=== PATIENT | female | born 1930 | race Caucasian/White ===

== ENCOUNTER → 2016-12-31 | Outpatient (CLI) | payer MEDICARE ==
--- NOTE | 2016-12-31 10:29 | MM ---
Reason for exam: additional evaluation requested from prior study. Last mammogram was performed 1 year and 2 months ago. History: Patient is postmenopausal and history of other cancer. Family history of breast cancer in maternal aunt at age 90. Benign stereotactic core biopsy of the right breast, March 20, 2001. Excisional biopsy of the left breast. Took hormonal contraceptives for 3 years beginning at age 32. Taking estrogen for 29 years beginning at age 46. Physical Findings: Nurse did not find any significant physical abnormalities on exam. MG 3D Diag Mammo W/Cad MARA Bilateral CC and MLO view(s) were taken. Prior study comparison: May 13, 2016, right breast US breast RT. November 09, 2015, right breast US breast workup limited RT. October 18, 2015, bilateral MG 3d screening mammo w/cad. September 08, 2014, mammogram, performed at [facility]. July 28, 2014, mammogram, performed at [facility]. The breast tissue is heterogeneously dense. This may lower the sensitivity of mammography. No significant new findings when compared with previous films. These results were verbally communicated with the patient and result sheet given to the patient on 12/31/16. ASSESSMENT: Benign, BI-RAD 2 RECOMMENDATION: Routine screening mammogram of both breasts in 1 year.
--- NOTE | 2016-12-31 10:39 | USB ---
Reason for exam: additional evaluation requested from abnormal screening. History: Patient is postmenopausal and history of other cancer. Family history of breast cancer in maternal aunt at age 90. Benign stereotactic core biopsy of the right breast, March 20, 2001. Excisional biopsy of the left breast. Took hormonal contraceptives for 3 years beginning at age 32. Taking estrogen for 29 years beginning at age 46. US Breast RT Right breast ultrasound includes all four quadrants, the retroareolar region and axilla. Finding demonstrate a 0.7 x 0.4 x 0.6mm mixed lesion at 1 o'clock, a 0.4 x 0.4 x 0.5mm too small to characterize lesion at 1 o'clock, a 0.6 x 0.2 x 0.2mm cystic lesion at 9 o'clock, a 1.1 x 0.4 x 0.4mm cystic lesion at 9 o'clock, a 0.2 x 0.4 x 0.6 cystic lesion at 9 o'clock, and a 0.6 x 0.3 x 0.4mm cystic lesion at 9 o'clock. These results were verbally communicated with the patient and result sheet given to the patient on 12/31/16. ASSESSMENT: Benign, BI-RAD 2 RECOMMENDATION: Routine screening mammogram of both breasts in 1 year.
== END | disposition home or self-care (01) ==
LOC: RADMAMWWP 08:33
PROVIDERS: ATTEND Obstetrics & Gynecology
DX: R92.8 Other abnormal and inconclusive findings on diagnostic imaging of breast (principal)
CPT/HCPCS: 76641; G0204; G0279

== ENCOUNTER → 2017-01-17 | Outpatient (CLI) | payer MEDICARE ==
[2017-01-17 14:24] LABS: Blood Urea Nitrogen 21 mg/dL (7-17); Non-African American GFR(MDRD) >60 (>60 ml/min/1.73 sqM)
--- NOTE | 2017-01-17 15:14 | CT ---
EXAMINATION TYPE: CT brain wo/w con DATE OF EXAM: 01/17/2017 COMPARISON: CT brain April 27, 2014. HISTORY: Patient complains of headache and dizziness. CT DLP: 2034.00 mGycm Automated exposure control for dose reduction was used. CONTRAST: CT scan of the head is performed without and with IV Contrast, patient injected with 100 mL of Omnipa que 300. FINDINGS: Noncontrast images show no acute intracranial hemorrhage or midline shift. There is ventricular and s ulcal prominence consistent with diffuse age-related cerebral atrophy. Asymmetric atrophy of bilatera l frontal lobes is redemonstrated. Postcontrast images show no suspicious enhancing intraparenchymal mass. The bilateral lenses are thinned. The Visualized paranasal sinuses are clear. Patchy soft tissu e density bilateral external auditory canals is felt to reflect cerumen. Mild to moderate calcified p laque distal internal carotid arteries bilaterally is present. No suspicious opacification mastoid ai r cells is seen bilaterally. IMPRESSION: Mild diffuse age-related cerebral atrophy with slightly more prominent frontal lobe atrophy noted. No significant new finding is seen to account for patient's symptoms of headache and dizziness. No susp icious enhancing intraparenchymal mass is noted.
== END | disposition home or self-care (01) ==
LOC: RADCTMAIN 13:24
PROVIDERS: ATTEND Internal Medicine
DX: G31.9 Degenerative disease of nervous system, unspecified (principal)
CPT/HCPCS: 82565; 84520; 70470; 36415; Q9967

== ENCOUNTER 2017-04-18 23:32 | Observation (INO) | payer MEDICARE ==
[2017-04-18] MEDS ORDERED: ASPIRIN 81 MG PO STA (23:59)
[2017-04-18] MEDS ORDERED: NITROGLYCERIN OINT 1 INCH/GM PACKET TOPICAL STA (23:59)
--- NOTE | 2017-04-19 00:02 | ED ---
General Adult HPI - General Chief complaint: Chest Pain Stated complaint: Chest Pain Time Seen by Provider: 04/18/17 23:49 Source: patient, RN notes reviewed Mode of arrival: ambulatory Limitations: no limitations - History of Present Illness Initial comments: Patient is a pleasant 87-year-old female presenting to the emergency department complaining of fullness in her chest. Onset of symptoms was today. Symptoms have been waxing and waning and symptoms are mild at this time. Patient does feel slightly short of breath. No nausea or diaphoresis. 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 No leg pain or leg swelling. No cough or fever. - Related Data Home Medications Medication Instructions Recorded Confirmed ALPRAZolam [Xanax] 0.25 mg PO TID PRN 04/27/14 04/18/17 CLIDINIUM-chlordiazePOXIDE [Librax] 1 cap PO DAILY PRN 04/27/14 04/18/17 Carvedilol [Coreg] 12.5 mg PO BID 04/27/14 04/18/17 Estradiol 0.05MG/24Hr Biwkptch 1 patch TRANSDERM DIRECTED 04/27/14 04/18/17 [Vivelle-Dot] Famotidine 20 mg PO BID 04/27/14 04/18/17 Isosorbide Mononitrate ER [Imdur] 60 mg PO QAM 04/27/14 04/18/17 Isosorbide Mononitrate ER [Imdur] 90 mg PO HS 04/27/14 04/18/17 Levothyroxine Sodium [Synthroid] 75 mcg PO DAILY 04/27/14 04/18/17 Melatonin 3 mg PO HS PRN 04/27/14 04/18/17 Mesalamine [Asacol Hd] 400 mg PO TID PRN 04/27/14 04/18/17 Nitroglycerin Sl Tabs [Nitrostat] 0.4 mg PO DIRECTED PRN 04/27/14 04/18/17 Simvastatin [Zocor] 20 mg PO HS 04/27/14 04/18/17 Spironolactone 50 mg PO DAILY 04/27/14 04/18/17 glyBURIDE [Diabeta] 2.5 mg PO DAILY 04/27/14 04/18/17 traMADol HCl [Ultram] 50 mg PO Q6H PRN 04/27/14 04/18/17 Aspirin 81 mg PO DAILY 11/17/14 04/18/17 cloNIDine HCL [Catapres] 0.1 mg PO BID 11/17/14 04/18/17 Apixaban [Eliquis] 5 mg PO DAILY 04/19/17 04/19/17 Previous Rx's Medication Instructions Recorded Meclizine [Antivert] 12.5 mg PO Q8HR #90 tablet 04/29/14 Allergies Allergy/AdvReac Type Severity Reaction Status Date / Time JORGITO Inhibitors Allergy Swelling Verified 11/17/14 10:50 Review of Systems ROS Statement: Those systems with pertinent positive or pertinent negative responses have been documented in the HPI. ROS Other: All systems not noted in ROS Statement are negative. Constitutional: Denies: fever Eyes: Denies: eye pain ENT: Denies: ear pain Respiratory: Denies: cough Cardiovascular: Reports: chest pain Endocrine: Denies: fatigue Gastrointestinal: Denies: abdominal pain Genitourinary: Denies: dysuria Musculoskeletal: Denies: back pain Skin: Denies: rash Neurological: Denies: headache Past Medical History Past Medical History: Coronary Artery Disease (CAD), Chest Pain / Angina, Diabetes Mellitus, GERD/Reflux, Hyperlipidemia, Hypertension, Osteoarthritis (OA ), Sleep Apnea/CPAP/BIPAP Additional Past Medical History / Comment(s): skin cancer, neuropathy, arrythmia , occasional hypotension History of Any Multi-Drug Resistant Organisms: None Reported Past Surgical History: Cholecystectomy, Hysterectomy, Orthopedic Surgery Additional Past Surgical History / Comment(s): cataract, angioplasty x 4, 1/2 thyroidectomy Past Anesthesia/Blood Transfusion Reactions: No Reported Reaction Past Psychological History: No Psychological Hx Reported Smoking Status: Former smoker Past Alcohol Use History: Rare Past Drug Use History: None Reported - Past Family History Father Family Medical History: Coronary Artery Disease (CAD) General Exam Limitations: no limitations General appearance: alert, in no apparent distress Head exam: Present: atraumatic Eye exam: Present: normal appearance, PERRL ENT exam: Present: normal oropharynx Neck exam: Present: normal inspection Respiratory exam: Present: normal lung sounds bilaterally. Absent: chest wall tenderness Cardiovascular Exam: Present: regular rate, normal rhythm Expanded Peripheral pulses: 2+: Radial (R), Radial (L), Dorsalis Pedis (R), Dorsalis Pedis (L) GI/Abdominal exam: Present: soft. Absent: tenderness Extremities exam: Present: normal inspection. Absent: pedal edema, calf tenderness Neurological exam: Present: alert Psychiatric exam: Present: normal affect, normal mood Skin exam: Present: normal color Course Vital Signs 04/18/17 04/19/17 04/19/17 23:33 00:37 01:45 Temperature 97.5 F L Pulse Rate 79 60 80 Respiratory 18 16 16 Rate Blood Pressure 140/70 101/55 118/73 O2 Sat by Pulse 97 93 L 97 Oximetry EKG Findings - EKG Comments: EKG Findings:: Paced rhythm at 62. QRS 144. QT 436. QTc 442. Left axis. Wide QRS complex. No acute ST change. Medical Decision Making - Medical Decision Making Patient reevaluated and resting comfortably in bed. Patient and family updated on results and plan. Case was discussed with Dr. Mccord, who will admit for Dr. Locke. Patient is currently on eliquis - Lab Data Result diagrams: 04/19/17 00:06 04/19/17 00:06 Lab Results 04/19/17 04/19/17 04/19/17 Range/Units 00:06 00:06 00:06 WBC 9.9 (3.8-10.6) k/uL RBC 4.50 (3.80-5.40) m/uL Hgb 14.3 (11.4-16.0) gm/dL Hct 43.0 (34.0-46.0) % MCV 95.6 (80.0-100.0) fL MCH 31.8 (25.0-35.0) pg MCHC 33.3 (31.0-37.0) g/dL RDW 14.4 (11.5-15.5) % Plt Count 187 (150-450) k/uL Neutrophils % 69 % Lymphocytes % 17 % Monocytes % 9 % Eosinophils % 3 % Basophils % 1 % Neutrophils # 6.9 (1.3-7.7) k/uL Lymphocytes # 1.6 (1.0-4.8) k/uL Monocytes # 0.8 (0-1.0) k/uL Eosinophils # 0.3 (0-0.7) k/uL Basophils # 0.1 (0-0.2) k/uL PT (9.0-12.0) sec INR (<1.2) APTT (22.0-30.0) sec Sodium 137 (137-145) mmol/L Potassium 4.3 (3.5-5.1) mmol/L Chloride 106 (98-107) mmol/L Carbon Dioxide 25 (22-30) mmol/L Anion Gap 6 mmol/L BUN 29 H (7-17) mg/dL Creatinine 0.80 (0.52-1.04) mg/dL Est GFR (MDRD) Af Amer >60 (>60 ml/min/1.73 sqM) Est GFR (MDRD) Non-Af >60 (>60 ml/min/1.73 sqM) Glucose 148 H (74-99) mg/dL Calcium 9.1 (8.4-10.2) mg/dL Magnesium 1.8 (1.6-2.3) mg/dL Total Bilirubin 0.4 (0.2-1.3) mg/dL AST 23 (14-36) U/L ALT 42 (9-52) U/L Alkaline Phosphatase 59 (38-126) U/L Total Creatine Kinase 97 (30-135) U/L CK-MB (CK-2) 3.4 H* (0.0-2.4) ng/mL CK-MB (CK-2) Rel Index 3.5 Troponin I <0.012 (0.000-0.034) ng/mL Total Protein 5.9 L (6.3-8.2) g/dL Albumin 3.1 L (3.5-5.0) g/dL 04/19/17 Range/Units 00:06 WBC (3.8-10.6) k/uL RBC (3.80-5.40) m/uL Hgb (11.4-16.0) gm/dL Hct (34.0-46.0) % MCV (80.0-100.0) fL MCH (25.0-35.0) pg MCHC (31.0-37.0) g/dL RDW (11.5-15.5) % Plt Count (150-450) k/uL Neutrophils % % Lymphocytes % % Monocytes % % Eosinophils % % Basophils % % Neutrophils # (1.3-7.7) k/uL Lymphocytes # (1.0-4.8) k/uL Monocytes # (0-1.0) k/uL Eosinophils # (0-0.7) k/uL Basophils # (0-0.2) k/uL PT 9.6 (9.0-12.0) sec INR 0.9 (<1.2) APTT 24.3 (22.0-30.0) sec Sodium (137-145) mmol/L Potassium (3.5-5.1) mmol/L Chloride (98-107) mmol/L Carbon Dioxide (22-30) mmol/L Anion Gap mmol/L BUN (7-17) mg/dL Creatinine (0.52-1.04) mg/dL Est GFR (MDRD) Af Amer (>60 ml/min/1.73 sqM) Est GFR (MDRD) Non-Af (>60 ml/min/1.73 sqM) Glucose (74-99) mg/dL Calcium (8.4-10.2) mg/dL Magnesium (1.6-2.3) mg/dL Total Bilirubin (0.2-1.3) mg/dL AST (14-36) U/L ALT (9-52) U/L Alkaline Phosphatase (38-126) U/L Total Creatine Kinase (30-135) U/L CK-MB (CK-2) (0.0-2.4) ng/mL CK-MB (CK-2) Rel Index Troponin I (0.000-0.034) ng/mL Total Protein (6.3-8.2) g/dL Albumin (3.5-5.0) g/dL - Radiology Data Radiology results: image reviewed (Chest x-ray shows no acute findings.) Disposition Clinical Impression: Chest pain Disposition: ADMITTED IP TO THIS [facility] Referrals: Karlo Locke MD [Primary Care Provider] - 1-2 days Decision Time: 01:56
[2017-04-19 00:24] LABS: Basophils # (A) 0.1 k/uL (0-0.2); Basophils % (A) 1 %; CH 32.5; CHCM 34.2; Eosinophils # (A) 0.3 k/uL (0-0.7); Eosinophils % (A) 3 %; HGB 14.3 gm/dL (11.4-16.0); Luc # (Auto) 0.25; Luc % (Auto) 3; Lymphocytes # (A) 1.6 k/uL (1.0-4.8); Lymphocytes % (A) 17 %; MCH 31.8 pg (25.0-35.0); MCHC 33.3 g/dL (31.0-37.0); MCV 95.6 fL (80.0-100.0); Mean Platelet Volume 7.6; Monocytes # (A) 0.8 k/uL (0-1.0); Monocytes % (A) 9 %; Neutrophils # (A) 6.9 k/uL (1.3-7.7); Neutrophils % (A) 69 %; RDW 14.4 % (11.5-15.5); WBC 9.9 k/uL (3.8-10.6); WBC (Perox) 9.82
--- NOTE | 2017-04-19 00:33 | XR ---
EXAM: XR Chest, 2 Views CLINICAL HISTORY: Reason: Chest Pain TECHNIQUE: Frontal and lateral views of the chest. COMPARISON: 11/17/14 FINDINGS: Lungs: Unremarkable. No consolidation. Pleural space: Unremarkable. No pneumothorax. Heart: Left-sided cardiac pacing device. Mediastinum: Unremarkable. Bones/joints: Multileveled degenerative changes of the spine. IMPRESSION: No acute findings.
[2017-04-19 00:36] LABS: ALT 42 U/L (9-52); AST 23 U/L (14-36); Alkaline Phosphatase 59 U/L (38-126); Anion Gap 6 mmol/L; Blood Urea Nitrogen 29 mg/dL (7-17); Calcium 9.1 mg/dL (8.4-10.2); Carbon Dioxide 25 mmol/L (22-30); Chloride 106 mmol/L (98-107); Glucose 148 mg/dL (74-99); Magnesium 1.8 mg/dL (1.6-2.3); Non-African American GFR(MDRD) >60 (>60 ml/min/1.73 sqM); Potassium 4.3 mmol/L (3.5-5.1); Sodium 137 mmol/L (137-145); Total Bilirubin 0.4 mg/dL (0.2-1.3); Total Protein 5.9 g/dL (6.3-8.2)
[2017-04-19 00:58] LABS: INR 0.9 (<1.2); Partial Thromboplastin Time 24.3 sec (22.0-30.0); Prothrombin Time 9.6 sec (9.0-12.0)
[2017-04-19 01:05] LABS: Creatine Kinase 97 U/L (30-135)
[2017-04-19 01:16] LABS: Troponin I <0.012 ng/mL (0.000-0.034)
[2017-04-19 01:20] LABS: Creatine Kinase MB 3.4 ng/mL (0.0-2.4)
[2017-04-19] MEDS ORDERED: NITROGLYCERIN SL TABS 0.4 MG TAB SUBLINGUAL PRN (01:56)
[2017-04-19] MEDS ORDERED: ALPRAZolam 0.25 MG TAB PO PRN (01:57)
[2017-04-19 02:50] VITALS: BMI 32.3
[2017-04-19] MEDS: NITROGLYCERIN OINT 1 INCH/GM PACKET TOPICAL SCH ×2 (04:48→13:19)
[2017-04-19 06:55] LABS: Glucose,Whole Blood 115 mg/dL (75-99)
[2017-04-19] MEDS ORDERED: CARVEDILOL 12.5 MG TAB PO SCH (07:30)
[2017-04-19 07:52] LABS: Creatine Kinase 77 U/L (30-135)
[2017-04-19 08:03] VITALS: RESP 16
[2017-04-19 08:04] LABS: Troponin I <0.012 ng/mL (0.000-0.034)
[2017-04-19 08:13] LABS: Creatine Kinase MB 3.2 ng/mL (0.0-2.4)
[2017-04-19] MEDS ORDERED: SPIRONOLACTONE 25 MG TAB PO SCH (09:00)
[2017-04-19] MEDS ORDERED: APIXABAN 5 MG TAB PO SCH (09:00)
[2017-04-19] MEDS ORDERED: cloNIDine HCL 0.1 MG TAB PO SCH (09:00)
[2017-04-19] MEDS ORDERED: ISOSORBIDE MONONITRATE ER 60 MG TAB.ER.24H PO SCH (09:00)
--- NOTE | 2017-04-19 09:45 | P.CRDCN ---
History of Present Illness Consult date: 04/19/17 Consult reason: chest pain History of present illness: 87-year-old lady with history of sick sinus syndrome status post permanent pacemaker coronary artery disease status post multivessel angioplasty who follows with a project management intern in [facility] comes in complaining of precordial chest pain. Her chest discomfort is mild to moderate intensity precordial without definite radiation to neck, back there was no associated diaphoresis. It was unrelated to exertion. Came on at rest. Gradually subsided after coming to hospital. She is admitted with a diagnosis of unstable angina. She ruled out for myocardial infarction EKG shows paced rhythm. I talked to patient about her treatment options including cardiac catheterization. Understanding risks benefits she does not wish to have further workup at this stage wishes to be discharged home follow-up with her own project management intern. I will obtain a 2-D echo on her to evaluate her LV function. Patient at the moment is an optimal medical therapy. Review of Systems Constitutional: Denies chills. Denies fever. Eyes: Denies blurred vision. Denies pain. Ears, nose, mouth and throat: Denies headache. Denies sore throat. Cardiovascular: has chest pain. Denies shortness of breath. Respiratory: Denies cough. Gastrointestinal: Denies abdominal pain. Denies diarrhea. Denies nausea. Denies vomiting. Musculoskeletal: Denies myalgias. Integumentary: Denies pruritus. Denies rash. Neurological: Denies numbness. Denies weakness. Psychiatric: Denies anxiety. Denies depression. Endocrine: Denies fatigue. Denies weight change. Genitourinary: Denies burning, hematuria, frequency of urination. Hematological: No anemia or excess bleeding. Past Medical History Past Medical History: Atrial Fibrillation, Coronary Artery Disease (CAD), Chest Pain / Angina, Diabetes Mellitus, GERD/Reflux, Hyperlipidemia, Hypertension, Osteoarthritis (OA), Sleep Apnea/CPAP/BIPAP Additional Past Medical History / Comment(s): skin cancer, neuropathy, arrythmia , occasional hypotension History of Any Multi-Drug Resistant Organisms: None Reported Past Surgical History: Cholecystectomy, Heart Catheterization With Stent, Hysterectomy, Orthopedic Surgery, Pacemaker Additional Past Surgical History / Comment(s): cataract, 2 stents, 1/2 thyroidectomy Past Anesthesia/Blood Transfusion Reactions: No Reported Reaction Date of Last Stent Placement:: 2002 Type of Cardiac Device: Permanent Pacemaker Device Placement Date:: 2014 Past Psychological History: No Psychological Hx Reported Smoking Status: Former smoker Past Alcohol Use History: Rare Past Drug Use History: None Reported - Past Family History Father Family Medical History: Coronary Artery Disease (CAD) Medications and Allergies Home Medications Medication Instructions Recorded Confirmed Type ALPRAZolam [Xanax] 0.25 mg PO TID PRN 04/27/14 04/18/17 History CLIDINIUM-chlordiazePOXIDE [Librax] 1 cap PO DAILY PRN 04/27/14 04/18/17 History Carvedilol [Coreg] 12.5 mg PO BID 04/27/14 04/18/17 History Estradiol 0.05MG/24Hr Biwkptch 1 patch TRANSDERM DIRECTED 04/27/14 04/18/17 History [Karmaelle-Dot] Famotidine 20 mg PO BID 04/27/14 04/18/17 History Isosorbide Mononitrate ER [Imdur] 60 mg PO QAM 04/27/14 04/18/17 History Isosorbide Mononitrate ER [Imdur] 90 mg PO HS 04/27/14 04/18/17 History Levothyroxine Sodium [Synthroid] 75 mcg PO DAILY 04/27/14 04/18/17 History Melatonin 3 mg PO HS PRN 04/27/14 04/18/17 History Mesalamine [Asacol Hd] 400 mg PO TID PRN 04/27/14 04/18/17 History Nitroglycerin Sl Tabs [Nitrostat] 0.4 mg PO DIRECTED PRN 04/27/14 04/18/17 History Simvastatin [Zocor] 20 mg PO HS 04/27/14 04/18/17 History Spironolactone 50 mg PO DAILY 04/27/14 04/18/17 History glyBURIDE [Diabeta] 2.5 mg PO DAILY 04/27/14 04/18/17 History traMADol HCl [Ultram] 50 mg PO Q6H PRN 04/27/14 04/18/17 History Meclizine [Antivert] 12.5 mg PO Q8HR #90 tablet 04/29/14 04/18/17 Rx Aspirin 81 mg PO DAILY 11/17/14 04/18/17 History cloNIDine HCL [Catapres] 0.1 mg PO BID 11/17/14 04/18/17 History Apixaban [Eliquis] 5 mg PO DAILY 04/19/17 04/19/17 History Allergies Allergy/AdvReac Type Severity Reaction Status Date / Time JORGITO Inhibitors Allergy Swelling Verified 11/17/14 10:50 cortisone AdvReac Rash/Hives Verified 04/19/17 03:07 Physical Exam Vitals: Vital Signs Temp Pulse Pulse Resp BP BP Pulse Ox 04/19/17 08:00 97.5 F L 63 16 116/49 93 L 04/19/17 04:00 97.2 F L 69 18 129/71 96 04/19/17 02:58 68 18 04/19/17 02:34 98 F 77 18 105/57 96 04/19/17 01:45 80 16 118/73 97 04/19/17 00:37 60 16 101/55 93 L 04/18/17 23:33 97.5 F L 79 18 140/70 97 Intake and Output 04/18/17 04/19/17 04/19/17 22:59 06:59 14:59 Other: Voiding Method Toilet # Voids 2 Weight 87.997 kg General: The patient is awake and alert, in no distress, and does not appear acutely ill. Skin: Skin is warm and dry and no rashes or lesions are noted. Eye: Pupils are equal, round and reactive to light, extra-ocular movements are intact; there is normal conjunctiva bilaterally. Ears, nose, mouth and throat: There are moist mucous membranes and no oral lesions. Neck: The neck is supple, there is no tenderness or JVD. Cardiovascular: There is a regular rate and rhythm. Has a systolic murmur at the left lower sternal border Respiratory: Lungs are clear to auscultation, respirations are non-labored, breath sounds are equal. Gastrointestinal: Soft, non-distended, non-tender abdomen without masses or organomegaly noted. There is no rebound or guarding present. Bowel sounds are unremarkable. Back: There is no tenderness to palpation in the midline. There is no obvious deformity. Musculoskeletal: Normal ROM, no tenderness, There is no pedal edema. There is no calf tenderness or swelling. Extremities: No edema. Vascular: Femoral pulse is normal. Posterior tibial pulses are normal .Dorsalis pedis is palpable. Neurological: CN II-XII intact. There are no obvious motor or sensory deficits. Speech is normal. Psychiatric: Cooperative, appropriate mood & affect, normal judgment. Results 04/19/17 00:06 04/19/17 00:06 Cardiac Enzymes 04/19/17 04/19/17 04/19/17 Range/Units 00:06 00:06 06:26 AST 23 (14-36) U/L CK-MB (CK-2) 3.4 H* 3.2 H* (0.0-2.4) ng/mL Troponin I <0.012 <0.012 (0.000-0.034) ng/mL Coagulation 04/19/17 Range/Units 00:06 PT 9.6 (9.0-12.0) sec APTT 24.3 (22.0-30.0) sec CBC 04/19/17 Range/Units 00:06 WBC 9.9 (3.8-10.6) k/uL RBC 4.50 (3.80-5.40) m/uL Hgb 14.3 (11.4-16.0) gm/dL Hct 43.0 (34.0-46.0) % Plt Count 187 (150-450) k/uL Comprehensive Metabolic Panel 04/19/17 Range/Units 00:06 Sodium 137 (137-145) mmol/L Potassium 4.3 (3.5-5.1) mmol/L Chloride 106 (98-107) mmol/L Carbon Dioxide 25 (22-30) mmol/L BUN 29 H (7-17) mg/dL Creatinine 0.80 (0.52-1.04) mg/dL Glucose 148 H (74-99) mg/dL Calcium 9.1 (8.4-10.2) mg/dL AST 23 (14-36) U/L ALT 42 (9-52) U/L Alkaline Phosphatase 59 (38-126) U/L Total Protein 5.9 L (6.3-8.2) g/dL Albumin 3.1 L (3.5-5.0) g/dL Current Medications Generic Name Dose Route Start Last Admin Trade Name Freq PRN Reason Stop Dose Admin Alprazolam 0.25 mg 04/19/17 01:57 Xanax PO TID PRN Anxiety Apixaban 5 mg 04/19/17 09:00 04/19/17 09:33 Eliquis PO 5 mg DAILY DULCE Administration Aspirin 325 mg 04/20/17 09:00 Aspirin PO DAILY [facility] Atorvastatin Calcium 10 mg 04/19/17 21:00 Lipitor PO HS [facility] Carvedilol 12.5 mg 04/19/17 07:30 04/19/17 09:33 Coreg PO 12.5 mg AC-BID DULCE Administration Clonidine 0.1 mg 04/19/17 09:00 04/19/17 09:33 Catapres PO 0.1 mg BID DULCE Administration Nitroglycerin 1 inch 04/19/17 06:00 04/19/17 04:48 Nitro-Bid Oint TOPICAL Not Given Q6HR DULCE Nitroglycerin 0.4 mg 04/19/17 01:56 Nitrostat SUBLINGUAL Q5M PRN Chest Pain Sodium Chloride 10 ml 04/19/17 09:00 04/19/17 09:33 Saline Flush IV 10 ml BID DULCE Administration Spironolactone 50 mg 04/19/17 09:00 04/19/17 09:33 Aldactone PO 50 mg DAILY DULCE Administration Intake and Output 04/18/17 04/19/17 04/19/17 22:59 06:59 14:59 Other: Voiding Method Toilet # Voids 2 Weight 87.997 kg 04/19/17 00:06 04/19/17 00:06 EKG Interpretations (text) Patient has paced EKG Assessment and Plan Plan: Unstable angina 6 sinus syndrome status post permanent pacemaker History of atrial fibrillation Hypertension Treat the patient with continued medical therapy stable to be discharged home and arrange follow-up with her own project management intern
[2017-04-19] MEDS ORDERED: glipiZIDE 5 MG TAB PO SCH (11:00)
[2017-04-19] MEDS ORDERED: LEVOTHYROXINE 75 MCG TAB PO SCH (11:00)
--- NOTE | 2017-04-19 11:39 | ECHOF ---
Referral Reason:chest pain MEASUREMENTS -------- HEIGHT: 165.1 cm WEIGHT: 88.0 kg BP: 116/49 IVSd: 1.3 cm (0.6 - 1.1) LVIDd: 5.3 cm (3.9 - 5.3) LVPWd: 0.8 cm (0.6 - 1.1) IVSs: 1.5 cm LVIDs: 5.0 cm LVPWs: 0.1 cm LAESV Index (A-L): 29.19 ml/m Ao Diam: 3.3 cm (2.0 - 3.7) AV Cusp: 1.9 cm (1.5 - 2.6) LA Diam: 4.2 cm (2.7 - 3.8) MV EXCURSION: 11.800 mm (> 18.000) MV EF SLOPE: 53 mm/s (70 - 150) EPSS: 0.9 cm MV E Gordo: 0.66 m/s MV DecT: 263 ms MV A Gordo: 1.06 m/s MV E/A Ratio: 0.62 RAP: 5.00 mmHg RVSP: 13.82 mmHg FINDINGS -------- Paced rhythm. This was a technically adequate study. There is mild concentric left ventricular hypertrophy. Overall left ventricular systolic function is low-normal with, an EF between 50 - 55 %. The right ventricle is normal in size. LA is midly dilated 29-33ml/m2. The right atrial size is normal. There is mild aortic valve sclerosis. There is no evidence of aortic regurgitation. Mild mitral annular calcification present. Mild mitral regurgitation is present. Mild tricuspid regurgitation present. There is no evidence of pulmonary hypertension. The right ventricular systolic pressure, as measured by Doppler, is 13.82mmHg. There is no pulmonic regurgitation present. The aortic root size is normal. Echo free space may represent effusion or a pericardial fat pad. CONCLUSIONS -------- 1. Paced rhythm. 2. The right ventricular systolic pressure, as measured by Doppler, is 13.82mmHg. 3. There is no pulmonic regurgitation present. 4. The aortic root size is normal. 5. Echo free space may represent effusion or a pericardial fat pad. 6. There is mild concentric left ventricular hypertrophy. 7. Overall left ventricular systolic function is low-normal with, an EF between 50 - 55 %. 8. LA is midly dilated 29-33ml/m2. 9. There is mild aortic valve sclerosis. 10. Mild mitral annular calcification present. 11. Mild mitral regurgitation is present. 12. Mild tricuspid regurgitation present. 13. There is no evidence of pulmonary hypertension. WALLPAPER PRINTER: Leanna Gates RDCS
[2017-04-19 12:00] LABS: Creatine Kinase 65 U/L (30-135)
[2017-04-19 12:02] LABS: Glucose,Whole Blood 178 mg/dL (75-99)
[2017-04-19 12:08] VITALS: BP 114/58; PULSE 70; TEMP 98
[2017-04-19 12:13] LABS: Troponin I <0.012 ng/mL (0.000-0.034)
[2017-04-19 12:41] LABS: Creatine Kinase MB 2.6 ng/mL (0.0-2.4)
--- NOTE | 2017-04-19 17:34 | P.HPIM ---
History of Present Illness H&P Date: 04/19/17 Chief Complaint: Chest pain This is a pleasant 87-year-old lady patient of Dr. Locke and Dr. Glaser at [facility]. 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 Patient's white as he cannot control the blood pressure as well as worried about taking too much nitroglycerin, subsequent to that she was seen in emergency room for further evaluation and consultation made to cardiology Emergency room, cardiac biomarkers troponin are negative, CPK MB is elevated however index is normal, no d-dimer is performed, chest x-ray shows ventricular paced rhythm 62. Chest x-ray shows no acute findings except for osteoarthritis and left-sided cardiac pacing device Review of Systems Constitutional: Reports as per HPI, Denies anorexia, Denies chills, Denies chronic headaches, Denies chronic pain, Denies daytime sleepiness, Denies fatigue, Denies fever, Denies lethargy, Denies malaise, Denies night sweats, Denies poor appetite, Denies sweats, Denies weakness, Denies weight gain, Denies weight loss Ears, nose, mouth and throat: Reports as per HPI, Denies ant. neck pain, Denies bleeding gums, Denies dental pain, Denies dysphagia, Denies epistaxis, Denies headache, Denies hoarseness, Denies mouth pain, Denies nasal congestion, Denies nasal discharge, Denies neck fullness/pressure, Denies neck lump, Denies nose pain, Denies odynophagia, Denies post-nasal drip, Denies sinus pain, Denies sinus pressure, Denies swelling in mouth, Denies swelling in throat, Denies sore throat, Denies vertigo, Denies voice changes Cardiovascular: Reports as per HPI, Reports chest pain, Reports decreased exercise tolerance, Denies claudication, Denies dyspnea on exertion, Denies edema, Denies high blood pressure, Denies irregular heart beat, Denies leg edema , Denies lightheadedness, Denies orthopnea, Denies palpitations, Denies paroxysmal nocturnal dyspnea, Denies phlebitis, Denies rapid heart beat, Denies shortness of breath, Denies syncope Respiratory: Reports as per HPI, Denies congestion, Denies cough, Denies cough with sputum, Denies dyspnea, Denies excessive sputum, Denies hemoptysis, Denies home oxygen, Denies pain, Denies pain on inspiration, Denies pleurisy, Denies respiratory infections, Denies sleep apnea, Denies snoring, Denies wheezing Gastrointestinal: Reports as per HPI, Denies abdominal pain, Denies belching, Denies bloating, Denies BRBPR, Denies change in bowel habits, Denies coffee ground emesis, Denies constipation, Denies diarrhea, Denies dyspepsia, Denies early satiety, Denies excessive gas, Denies heartburn, Denies hematemesis, Denies hematochezia, Denies indigestion, Denies jaundice, Denies lactose intolerance, Denies loss of appetite, Denies melena, Denies nausea, Denies vomiting Genitourinary: Reports as per HPI Menstruation: Reports as per HPI, Reports post hysterectomy Musculoskeletal: Reports as per HPI, Reports limitation of motion, Denies arm numbness/tingling, Denies atrophy, Denies fractures, Denies frequent falls, Denies gait dysfunction, Denies hot joints, Denies leg numbness/tingling, Denies loss of height, Denies low back pain, Denies morning stiffness, Denies muscle cramps, Denies muscle weakness, Denies myalgias, Denies neck pain, Denies neck stiffness, Denies prior amputations, Denies redness of joints, Denies shooting arm pain, Denies shooting leg pain Integumentary: Reports as per HPI Neurological: Reports as per HPI, Denies aphasia, Denies ataxia, Denies balance difficulties, Denies burning pain, Denies change in mentation, Denies change in smell/taste, Denies change in speech, Denies confusion, Denies convulsions, Denies double vision, Denies gait dysfunction, Denies head injury, Denies headaches, Denies hearing difficulties, Denies lack of coordination, Denies loss of vision, Denies memory loss, Denies migraines, Denies motor disturbance, Denies numbness, Denies paralysis, Denies paresthesias, Denies seizures, Denies sensory deficit, Denies spasticity, Denies syncope, Denies tic, Denies tingling , Denies transient paralysis, Denies tremors, Denies vertigo, Denies weakness, Denies visual changes Psychiatric: Reports as per HPI Endocrine: Reports as per HPI Hematologic/Lymphatic: Reports as per HPI, Denies easy bleeding, Denies easy bruising, Denies lymphadenopathy, Denies lymphedema, Denies thrombophilia Allergic/Immunologic: Reports as per HPI, Denies allergic rhinitis, Denies anaphylaxis, Denies angioedema, Denies gluten intolerance, Denies persistent infections, Denies seasonal allergies, Denies urticaria, Denies wheezing Past Medical History Past Medical History: Atrial Fibrillation, Coronary Artery Disease (CAD), Chest Pain / Angina, Diabetes Mellitus, GERD/Reflux, Hyperlipidemia, Hypertension, Osteoarthritis (OA), Sleep Apnea/CPAP/BIPAP Additional Past Medical History / Comment(s): skin cancer, neuropathy, arrythmia , occasional hypotension History of Any Multi-Drug Resistant Organisms: None Reported Past Surgical History: Cholecystectomy, Heart Catheterization With Stent, Hysterectomy, Orthopedic Surgery, Pacemaker Additional Past Surgical History / Comment(s): cataract, 2 stents, 1/2 thyroidectomy Past Anesthesia/Blood Transfusion Reactions: No Reported Reaction Date of Last Stent Placement:: 2002 Type of Cardiac Device: Permanent Pacemaker Device Placement Date:: 2014 Past Psychological History: No Psychological Hx Reported Smoking Status: Former smoker Past Alcohol Use History: Rare Past Drug Use History: None Reported - Past Family History Father Family Medical History: Coronary Artery Disease (CAD) Mother Family Medical History: Coronary Artery Disease (CAD) Brother(s) Family Medical History: Coronary Artery Disease (CAD) Daughter(s) Family Medical History: No Reported History (Healthy 1 daughter) Son(s) History Unknown: Yes (Healthy 3 sons) Medications and Allergies Home Medications Medication Instructions Recorded Confirmed Type ALPRAZolam [Xanax] 0.25 mg PO HS PRN 04/27/14 04/19/17 History Carvedilol [Coreg] 12.5 mg PO QID 04/27/14 04/19/17 History Estradiol 0.05MG/24Hr Biwkptch 1 patch TRANSDERM SUWE 04/27/14 04/19/17 History [Vivelle-Dot 0.05 MG] Isosorbide Mononitrate ER [Imdur] 60 mg PO HS 04/27/14 04/19/17 History Isosorbide Mononitrate ER [Imdur] 90 mg PO QAM 04/27/14 04/19/17 History Melatonin 3 mg PO HS PRN 04/27/14 04/19/17 History Nitroglycerin Sl Tabs [Nitrostat] 0.4 mg PO Q5M PRN 04/27/14 04/19/17 History Simvastatin [Zocor] 20 mg PO HS 04/27/14 04/19/17 History Spironolactone 50 mg PO DAILY PRN 04/27/14 04/19/17 History glyBURIDE [Diabeta] 2.5 mg PO AC-BRKFST 04/27/14 04/19/17 History traMADol HCl [Ultram] 50 mg PO HS PRN 04/27/14 04/19/17 History Aspirin 81 mg PO DAILY 11/17/14 04/19/17 History Acetaminophen-Codeine 300-30mg 1 tab PO Q4H PRN 04/19/17 04/19/17 History [Tylenol w/codeine #3] Apixaban [Eliquis] 5 mg PO BID 04/19/17 04/19/17 History Ascorbic Acid [Vitamin C] 500 mg PO DAILY 04/19/17 04/19/17 History Cholecalciferol [Vitamin D3] 2,000 unit PO TID 04/19/17 04/19/17 History Cyanocobalamin (Vitamin B-12) 1,000 mcg PO DAILY 04/19/17 04/19/17 History [Vitamin B-12] Levothyroxine Sodium [Synthroid] 150 mcg PO DAILY 04/19/17 04/19/17 History Multivitamins, Thera [Multivitamin 1 tab PO DAILY 04/19/17 04/19/17 History (formulary)] cloNIDine HCL [Catapres] 0.1 mg PO TID #90 04/19/17 04/19/17 Rx glipiZIDE XL [Glucotrol XL] 2.5 mg PO DAILY 09/09/17 09/09/17 History hydrALAZINE HCL [Hydralazine HCl] 50 mg PO QID 04/19/17 04/19/17 History Allergies Allergy/AdvReac Type Severity Reaction Status Date / Time JORGITO Inhibitors Allergy Swelling Verified 04/19/17 11:05 Calcium Channel Blocking AdvReac SORES IN Verified 04/19/17 11:05 Agent Dilt MOUTH cortisone AdvReac Rash/Hives Verified 04/19/17 11:05 Physical Exam Vitals: Vital Signs Temp Pulse Pulse Resp BP BP Pulse Ox 04/19/17 08:00 97.5 F L 63 16 116/49 93 L 04/19/17 04:00 97.2 F L 69 18 129/71 96 04/19/17 02:58 68 18 04/19/17 02:34 98 F 77 18 105/57 96 04/19/17 01:45 80 16 118/73 97 04/19/17 00:37 60 16 101/55 93 L 04/18/17 23:33 97.5 F L 79 18 140/70 97 Intake and Output 04/18/17 04/19/17 04/19/17 22:59 06:59 14:59 Other: Voiding Method Toilet # Voids 2 Weight 87.997 kg Results CBC & Chem 7: 04/19/17 00:06 04/19/17 00:06 Labs: Abnormal Lab Results - Last 24 Hours (Table) 04/19/17 04/19/17 04/19/17 Range/Units 00:06 00:06 06:26 BUN 29 H (7-17) mg/dL Glucose 148 H (74-99) mg/dL POC Glucose (mg/dL) (75-99) mg/dL CK-MB (CK-2) 3.4 H* 3.2 H* (0.0-2.4) ng/mL Total Protein 5.9 L (6.3-8.2) g/dL Albumin 3.1 L (3.5-5.0) g/dL 04/19/17 Range/Units 06:52 BUN (7-17) mg/dL Glucose (74-99) mg/dL POC Glucose (mg/dL) 115 H (75-99) mg/dL CK-MB (CK-2) (0.0-2.4) ng/mL Total Protein (6.3-8.2) g/dL Albumin (3.5-5.0) g/dL Laboratory Results WBC 9.9 k/uL (3.8-10.6) 04/19/17 00:06 RBC 4.50 m/uL (3.80-5.40) 04/19/17 00:06 Hgb 14.3 gm/dL (11.4-16.0) 04/19/17 00:06 Hct 43.0 % (34.0-46.0) 04/19/17 00:06 MCV 95.6 fL (80.0-100.0) 04/19/17 00:06 MCH 31.8 pg (25.0-35.0) 04/19/17 00:06 MCHC 33.3 g/dL (31.0-37.0) 04/19/17 00:06 RDW 14.4 % (11.5-15.5) 04/19/17 00:06 Plt Count 187 k/uL (150-450) 04/19/17 00:06 Neutrophils % 69 % 04/19/17 00:06 Lymphocytes % 17 % 04/19/17 00:06 Monocytes % 9 % 04/19/17 00:06 Eosinophils % 3 % 04/19/17 00:06 Basophils % 1 % 04/19/17 00:06 Neutrophils # 6.9 k/uL (1.3-7.7) 04/19/17 00:06 Lymphocytes # 1.6 k/uL (1.0-4.8) 04/19/17 00:06 Monocytes # 0.8 k/uL (0-1.0) 04/19/17 00:06 Eosinophils # 0.3 k/uL (0-0.7) 04/19/17 00:06 Basophils # 0.1 k/uL (0-0.2) 04/19/17 00:06 PT 9.6 sec (9.0-12.0) 04/19/17 00:06 INR 0.9 (<1.2) 04/19/17 00:06 APTT 24.3 sec (22.0-30.0) 04/19/17 00:06 Sodium 137 mmol/L (137-145) 04/19/17 00:06 Potassium 4.3 mmol/L (3.5-5.1) 04/19/17 00:06 Chloride 106 mmol/L (98-107) 04/19/17 00:06 Carbon Dioxide 25 mmol/L (22-30) 04/19/17 00:06 Anion Gap 6 mmol/L 04/19/17 00:06 BUN 29 mg/dL (7-17) H 04/19/17 00:06 Creatinine 0.80 mg/dL (0.52-1.04) 04/19/17 00:06 Est GFR (MDRD) Af Amer >60 (>60 ml/min/1.73 sqM) 04/19/17 00:06 Est GFR (MDRD) Non-Af >60 (>60 ml/min/1.73 sqM) 04/19/17 00:06 Glucose 148 mg/dL (74-99) H 04/19/17 00:06 POC Glucose (mg/dL) 178 mg/dL (75-99) H 04/19/17 11:58 POC Glu Specialist Physician ID Lisa Rashid 04/19/17 11:58 Calcium 9.1 mg/dL (8.4-10.2) 04/19/17 00:06 Magnesium 1.8 mg/dL (1.6-2.3) 04/19/17 00:06 Total Bilirubin 0.4 mg/dL (0.2-1.3) 04/19/17 00:06 AST 23 U/L (14-36) 04/19/17 00:06 ALT 42 U/L (9-52) 04/19/17 00:06 Alkaline Phosphatase 59 U/L (38-126) 04/19/17 00:06 Total Creatine Kinase 65 U/L (30-135) 04/19/17 11:28 CK-MB (CK-2) 2.6 ng/mL (0.0-2.4) H* 04/19/17 11:28 CK-MB (CK-2) Rel Index 4.0 04/19/17 11:28 Troponin I <0.012 ng/mL (0.000-0.034) 04/19/17 11:28 Total Protein 5.9 g/dL (6.3-8.2) L 04/19/17 00:06 Albumin 3.1 g/dL (3.5-5.0) L 04/19/17 00:06 Thrombosis Risk Factor Assmnt - Choose All That Apply Each Factor Represents 1 point: Obesity (BMI >25) Each Risk Factor Represents 3 Points: Age 75 years or older Thrombosis Risk Factor Assessment Total Risk Factor Score: 4 Thrombosis Risk Factor Assessment Level: Moderate Risk Assessment and Plan Plan: 1. Unstable angina, ruled out for myocardial infarction patient was seen by cardiology, with known history of CAD and sick sinus syndrome, permanent pacemaker, patient was offered cardiac catheterization however she refuses this and would 1 to be discharged and followed up with her on head usher, echocardiogram was performed, patient's currently at [facility], blood pressure control needs to be stabilized blood pressure at an outpatient setting, 2Echocardiogram performed shows mild concentric LVH paced rhythm, EF 50-55%, mild aortic valve sclerosis without stenosis, no pulmonary hypertension, mild MR and mild TR mild TR 3. Aortic urgent hypertension, patient can go up on her Catapres 0.1 mg 3 times a day for blood pressure over 160, stress reduction, continue on Imdur 90 mg at bedtime 60 mg every morning 4. Chronic atrial fibrillation currently paced rhythm, and is on elk 5 mg daily Coreg 12.5 mg twice a day 5. Diabetes mellitus type 2 on DiaBeta 2.5 mg daily 6 Estrogen replacement therapy monitored by her [employer]ECUTIVE OFFICER on estradiol 7 CAD with multiple vessel angioplasty, has a [facility] head usher Dr. Glaser , on Imdur, Coreg 12.5 twice a day, aspirin 81 mg daily, nitro when necessary, Zocor 20 mg daily and spironolactone 50 mg daily Catapres 0.1 g twice a day Discharge condition stable and improved Discharge Medication List ALPRAZolam [Xanax] 0.25 mg PO HS PRN 04/27/14 [History] Carvedilol [Coreg] 12.5 mg PO QID 04/27/14 [History] Estradiol 0.05MG/24Hr Biwkptch [Vivelle-Dot 0.05 MG] 1 patch TRANSDERM SUWE [History] Isosorbide Mononitrate ER [Imdur] 60 mg PO HS 04/27/14 [History] Isosorbide Mononitrate ER [Imdur] 90 mg PO QAM 04/27/14 [History] Melatonin 3 mg PO HS PRN 04/27/14 [History] Nitroglycerin Sl Tabs [Nitrostat] 0.4 mg PO Q5M PRN 04/27/14 [History] Simvastatin [Zocor] 20 mg PO HS 04/27/14 [History] Spironolactone 50 mg PO DAILY PRN 04/27/14 [History] glyBURIDE [Diabeta] 2.5 mg PO AC-BRKFST 04/27/14 [History] traMADol HCl [Ultram] 50 mg PO HS PRN 04/27/14 [History] Aspirin 81 mg PO DAILY 11/17/14 [History] Acetaminophen-Codeine 300-30mg [Tylenol w/codeine #3] 1 tab PO Q4H PRN 04/19/17 [History] Apixaban [Eliquis] 5 mg PO BID 04/19/17 [History] Ascorbic Acid [Vitamin C] 500 mg PO DAILY 04/19/17 [History] Cholecalciferol [Vitamin D3] 2,000 unit PO TID 04/19/17 [History] Cyanocobalamin (Vitamin B-12) [Vitamin B-12] 1,000 mcg PO DAILY 04/19/17 [ History] Levothyroxine Sodium [Synthroid] 150 mcg PO DAILY 04/19/17 [History] Multivitamins, Thera [Multivitamin (formulary)] 1 tab PO DAILY 04/19/17 [History ] cloNIDine HCL [Catapres] 0.1 mg PO TID #90 04/19/17 [Rx] glipiZIDE XL [Glucotrol XL] 2.5 mg PO DAILY 04/19/17 [History] hydrALAZINE HCL [Hydralazine HCl] 50 mg PO QID 04/19/17 [History]
[2017-04-19] MEDS ORDERED: ISOSORBIDE MONONITRATE ER 30 MG TAB.ER.24H PO SCH (21:00)
[2017-04-19] MEDS ORDERED: ATORVASTATIN 10 MG TAB PO SCH (21:00)
[2017-04-20] MEDS ORDERED: ASPIRIN 325 MG TAB PO SCH (09:00)
== END 2017-04-19 13:11 | disposition home or self-care (01) ==
LOC: EC 23:32 → 3OBS 04-19 01:56
PROVIDERS: ADMIT Family Medicine; ATTEND Family Medicine
DX: I25.110 Atherosclerotic heart disease of native coronary artery with unstable angina pectoris (principal); E78.5 Hyperlipidemia, unspecified; I25.10 Atherosclerotic heart disease of native coronary artery without angina pectoris; K21.9 Gastro-esophageal reflux disease without esophagitis; G47.30 Sleep apnea, unspecified; I10 Essential (primary) hypertension; M19.90 Unspecified osteoarthritis, unspecified site; E11.40 Type 2 diabetes mellitus with diabetic neuropathy, unspecified; I48.91 Unspecified atrial fibrillation; I08.3 Combined rheumatic disorders of mitral, aortic and tricuspid valves; Z88.8 Allergy status to other drugs, medicaments and biological substances; Z79.84 Long term (current) use of oral hypoglycemic drugs; Z79.01 Long term (current) use of anticoagulants; Z79.82 Long term (current) use of aspirin; Z79.899 Other long term (current) drug therapy; Z99.89 Dependence on other enabling machines and devices; Z85.828 Personal history of other malignant neoplasm of skin; Z87.891 Personal history of nicotine dependence; Z82.49 Family history of ischemic heart disease and other diseases of the circulatory system; Z95.0 Presence of cardiac pacemaker; Z95.5 Presence of coronary angioplasty implant and graft; Z79.890 Hormone replacement therapy
CPT/HCPCS: 99285; 36415; 93005; 93306; 80053; 82550; 82553; 83735; 84484; 85025; 85610; 85730; 71020; G0378

== ENCOUNTER → 2017-12-26 | Outpatient (CLI) | payer MEDICARE ==
--- NOTE | 2017-12-26 12:35 | CT ---
EXAMINATION TYPE: Noncontrast CT cervical spine DATE OF EXAM: 12/26/2017 COMPARISON: NONE HISTORY: Myelopathy disease, balance/gait issues CT DLP: 454.4 mGycm Alignment is anatomic. Evaluation of the spinal canal is limited. There Is no acute fracture. The p revertebral soft tissue structures are within normal limits. Carotid artery calcification the soft t issues noted. Cardiac device and leads are incidentally noted. At C2-C3 is degenerative disc disease and facet arthropathy. Uncovertebral joint hypertrophy seen. Ne ural foramina remain patent. No obvious canal stenosis or disc herniation. At C3-C4 there is degenerative disc disease and facet arthropathy greater on the left with moderate l eft-sided foraminal encroachment and mild right-sided foraminal encroachment. Uncovertebral joint hyp ertrophy contributes. No obvious canal stenosis or disc herniation. At C4-C5 there is marked facet arthropathy on the left with significant left-sided foraminal encroach ment and mild right-sided foraminal encroachment. Degenerative disc disease is noted. No definite can al stenosis. Assessment for disc herniation limited. There is an anterolisthesis of C4 relative to C5 measuring approximately 3 mm. At C5-C6 there is severe degenerative disc disease and hypertrophic changes with posterior spondylosi s. There is severe bilateral foraminal encroachment with uncovertebral joint and facet arthropathy. S uspect canal stenosis. Central disc protrusion not excluded. At C6-C7 there is severe degenerative disc disease. Central disc bulging with hypertrophy of the unco vertebral joints. Mild to moderate bilateral foraminal encroachment. No definite canal stenosis. At C7-T1 there is degenerative disc disease. No Canal stenosis. Artifact limits assessment spinal can al. Neural foramina appear to be patent. Facet arthropathy noted. IMPRESSION: 1. Multilevel moderate to severe degenerative disc disease with multilevel severe facet arthropathy r esult in multilevel significant foraminal encroachment as discussed above. Most marked findings are s een at C5-C6 with suspicion for central stenosis and central disc bulge.
== END | disposition home or self-care (01) ==
LOC: RADCTMAIN 11:49
PROVIDERS: ATTEND Psychiatry & Neurology Neurology
DX: M50.01 Cervical disc disorder with myelopathy, high cervical region (principal); M46.92 Unspecified inflammatory spondylopathy, cervical region
CPT/HCPCS: 72125

== ENCOUNTER → 2018-01-01 | Outpatient (CLI) | payer MEDICARE ==
--- NOTE | 2018-01-06 13:34 | MM ---
Reason for exam: screening (asymptomatic). Last mammogram was performed 1 year ago. History: Patient is postmenopausal and history of other cancer. Family history of breast cancer in maternal aunt at age 90. Benign stereotactic core biopsy of the right breast, March 20, 2001. Excisional biopsy of the left breast. Took hormonal contraceptives for 3 years beginning at age 32. Taking estrogen for 29 years beginning at age 46. Physical Findings: A clinical breast exam by your physician is recommended on an annual basis and results should be correlated with mammographic findings. MG 3D Screening Mammo W/Cad Bilateral CC and MLO view(s) were taken. Prior study comparison: December 31, 2016, bilateral MG 3d diag mammo w/cad MARA. October 18, 2015, bilateral MG 3d screening mammo w/cad. Finding: There are stable round, grouped/clustered calcifications in the upper outer quadrant of the left breast 8cm from the nipple. No significant changes in finding since December 31, 2016 and October 18, 2015. ASSESSMENT: Benign, BI-RAD 2 RECOMMENDATION: Routine screening mammogram of both breasts in 1 year.
== END | disposition home or self-care (01) ==
LOC: RADMAMWWP 12:17
PROVIDERS: ATTEND Obstetrics & Gynecology
DX: Z12.31 Encounter for screening mammogram for malignant neoplasm of breast (principal)
CPT/HCPCS: 77063; 77067

== ENCOUNTER → 2018-03-18 | Outpatient (CLI) | payer MEDICARE ==
[2018-03-18 11:09] LABS: Calcium 9.3 mg/dL (8.4-10.2); Potassium 4.7 mmol/L (3.5-5.1)
[2018-03-18 18:33] LABS: Vitamin D 25 Hydroxy 36.4 ng/mL (30.0-100.0)
[2018-03-18 18:45] LABS: Parathyroid Hormone Intact 60.1 pg/mL (14.0-72.0)
== END | disposition home or self-care (01) ==
LOC: LABWHC1 09:36
PROVIDERS: ATTEND Internal Medicine Endocrinology, Diabetes & Metabolism
DX: M89.9 Disorder of bone, unspecified (principal); N95.1 Menopausal and female climacteric states; E55.9 Vitamin D deficiency, unspecified
CPT/HCPCS: 36415; 80048; 82306; 83970

== ENCOUNTER → 2018-04-20 | Outpatient (CLI) | payer MEDICARE ==
[2018-04-20 08:31] LABS: INR 1.1 (<1.2); Prothrombin Time 10.5 sec (9.0-12.0)
[2018-04-20 08:35] LABS: Basophils % (A) 1 %; Eosinophils # (A) 0.2 k/uL (0-0.7); Eosinophils % (A) 3 %; HCT 45.1 % (34.0-46.0); HGB 14.5 gm/dL (11.4-16.0); Lymphocytes # (A) 1.8 k/uL (1.0-4.8); Lymphocytes % (A) 29 %; MCH 30.6 pg (25.0-35.0); MCHC 32.2 g/dL (31.0-37.0); MCV 95.1 fL (80.0-100.0); Mean Platelet Volume 7.6; Monocytes # (A) 0.6 k/uL (0-1.0); Monocytes % (A) 10 %; Neutrophils # (A) 3.4 k/uL (1.3-7.7); Neutrophils % (A) 54 %; Platelet Count 188 k/uL (150-450); RBC 4.74 m/uL (3.80-5.40); WBC 6.2 k/uL (3.8-10.6)
[2018-04-20 08:39] LABS: Albumin 3.6 g/dL (3.5-5.0); Calcium 9.5 mg/dL (8.4-10.2); Potassium 4.5 mmol/L (3.5-5.1); Total Bilirubin 0.6 mg/dL (0.2-1.3); Total Protein 6.6 g/dL (6.3-8.2)
[2018-04-20 08:52] LABS: T4, Free (Free Thyroxine) 1.08 ng/dL (0.78-2.19)
== END | disposition home or self-care (01) ==
LOC: LABWHC1 07:47
PROVIDERS: ATTEND Nurse Practitioner Family
DX: I48.2 Chronic atrial fibrillation (principal); I25.10 Atherosclerotic heart disease of native coronary artery without angina pectoris; E11.65 Type 2 diabetes mellitus with hyperglycemia; E78.5 Hyperlipidemia, unspecified; I10 Essential (primary) hypertension
CPT/HCPCS: 36415; 80053; 80061; 83036; 84439; 84443; 85025; 85610

== ENCOUNTER → 2018-05-05 | Outpatient (CLI) | payer MEDICARE ==
[2018-05-05 15:11] LABS: MCH 32.1 pg (25.0-35.0); MCHC 33.3 g/dL (31.0-37.0); MCV 96.5 fL (80.0-100.0); Mean Platelet Volume 7.3; Platelet Count 217 k/uL (150-450); RBC 4.67 m/uL (3.80-5.40); RDW 13.2 % (11.5-15.5)
== END | disposition home or self-care (01) ==
LOC: LABWHC1 14:43
PROVIDERS: ATTEND Internal Medicine Cardiovascular Disease
DX: Z01.812 Encounter for preprocedural laboratory examination (principal)
CPT/HCPCS: 36415; 85027

== ENCOUNTER 2018-08-06 02:35 | Emergency (ER) | payer MEDICARE ==
[2018-08-06 02:48] VITALS: RESP 18
--- NOTE | 2018-08-06 04:04 | ED ---
General Adult HPI - General Chief complaint: Allergic Reaction Stated complaint: face swelling Time Seen by Provider: 08/06/18 03:45 Source: patient Mode of arrival: ambulatory Limitations: no limitations - History of Present Illness Initial comments: This patient is an 88-year-old woman who presents to be evaluated for bilateral eye redness and itching. The patient states that she was concerned she was having ALLERGIC reaction though she does not know of any exposures. She states that she did have previous ALLERGIC reaction to JORGITO inhibitor and she was concerned about possibility of throat swelling. Patient has not noted any change in her breathing. She has had a little bit of nasal congestion and drainage. No tongue swelling. No change in speech or swallowing. No difficulty with breathing. No change in visual acuity Onset/Timin -: days(s) Location: eyes Severity scale (1-10): 0 Quality: other (Itching and burning) Consistency: constant Improves with: none Worsens with: none Associated Symptoms: denies other symptoms Treatments Prior to Arrival: other (Benadryl) - Related Data Home Medications Medication Instructions Recorded Confirmed ALPRAZolam [Xanax] 0.25 mg PO HS PRN 04/27/14 05/27/17 Carvedilol [Coreg] 12.5 mg PO QID 04/27/14 05/27/17 Estradiol 0.05MG/24Hr Biwkptch 1 patch TRANSDERM SUWE 04/27/14 05/27/17 [Vivelle-Dot 0.05 MG] Isosorbide Mononitrate ER [Imdur] 60 mg PO QAM 04/27/14 05/27/17 Isosorbide Mononitrate ER [Imdur] 90 mg PO HS 04/27/14 05/27/17 Nitroglycerin Sl Tabs [Nitrostat] 0.4 mg PO Q5M PRN 04/27/14 05/27/17 Simvastatin [Zocor] 20 mg PO HS 04/27/14 05/27/17 Spironolactone 50 mg PO DAILY PRN 04/27/14 05/27/17 traMADol HCl [Ultram] 50 mg PO HS PRN 04/27/14 05/27/17 Aspirin 81 mg PO DAILY 11/17/14 05/27/17 Apixaban [Eliquis] 5 mg PO BID 04/19/17 05/27/17 Ascorbic Acid [Vitamin C] 500 mg PO DAILY 04/19/17 05/27/17 Cholecalciferol [Vitamin D3] 3,000 unit PO TID 04/19/17 05/27/17 Cyanocobalamin (Vitamin B-12) 1,000 mcg PO DAILY 04/19/17 05/27/17 [Vitamin B-12] glipiZIDE XL [Glucotrol XL] 2.5 mg PO DAILY 04/19/17 05/27/17 hydrALAZINE HCL 50 mg PO QID 04/19/17 05/27/17 Levothyroxine Sodium [Synthroid] 75 mcg PO DAILY 05/26/17 05/27/17 Melatonin 5 mg PO HS PRN 05/26/17 05/27/17 cloNIDine HCL [Catapres] 0.1 mg PO HS 05/26/17 05/27/17 Allergies Allergy/AdvReac Type Severity Reaction Status Date / Time JORGITO Inhibitors Allergy Severe Swelling Verified 05/27/17 12:28 cortisone AdvReac Severe Rash/Hives, Verified 05/27/17 12:28 high BP Calcium Channel Blocking AdvReac SORES IN Verified 05/27/17 12:28 Agent Dilt MOUTH dust,trees Allergy Unknown Uncoded 05/27/17 12:28 Review of Systems ROS Statement: Those systems with pertinent positive or pertinent negative responses have been documented in the HPI. ROS Other: All systems not noted in ROS Statement are negative. Constitutional: Denies: fever, chills Eyes: Reports: other (Redness and itching). Denies: eye pain, eye discharge, vision change ENT: Reports: congestion. Denies: throat pain Respiratory: Reports: cough. Denies: dyspnea, wheezes Cardiovascular: Denies: chest pain Gastrointestinal: Denies: abdominal pain, nausea, vomiting Skin: Denies: rash Past Medical History Past Medical History: Atrial Fibrillation, Coronary Artery Disease (CAD), Cancer , Chest Pain / Angina, Diabetes Mellitus, GERD/Reflux, Hyperlipidemia, Hypertension, Osteoarthritis (OA), Sleep Apnea/CPAP/BIPAP, Thyroid Disorder Additional Past Medical History / Comment(s): skin cancer, restless leg syndrome , varicose veins, IBS, History of Any Multi-Drug Resistant Organisms: None Reported Past Surgical History: Breast Surgery, Cholecystectomy, Heart Catheterization With Stent, Hysterectomy, Orthopedic Surgery, Pacemaker Additional Past Surgical History / Comment(s): walt cataract, 2 stents, partial thyroidectomy, rt shoulder rotator cuff, walt breast biopsy, metal clip in rt breast Past Anesthesia/Blood Transfusion Reactions: No Reported Reaction Date of Last Stent Placement:: 2002 Type of Cardiac Device: Permanent Pacemaker Device Placement Date:: 2014 Past Psychological History: No Psychological Hx Reported Smoking Status: Former smoker Past Alcohol Use History: Occasional Past Drug Use History: None Reported - Past Family History Mother Family Medical History: Coronary Artery Disease (CAD) Brother(s) Family Medical History: Cancer Daughter(s) Family Medical History: No Reported History (Healthy 1 daughter) Son(s) History Unknown: Yes (Healthy 3 sons) Father Family Medical History: Coronary Artery Disease (CAD) General Exam Limitations: no limitations General appearance: alert, in no apparent distress Head exam: Present: atraumatic, normocephalic Eye exam: Present: PERRL, EOMI, conjunctival injection, other (Anterior chamber is clear. Cornea clear.). Absent: scleral icterus, nystagmus ENT exam: Present: normal oropharynx, mucous membranes moist Respiratory exam: Present: normal lung sounds bilaterally. Absent: respiratory distress, wheezes, rales, rhonchi, stridor Cardiovascular Exam: Present: regular rate, normal rhythm, normal heart sounds. Absent: systolic murmur, diastolic murmur, rubs, gallop Skin exam: Present: warm, dry, intact, normal color. Absent: rash Course Vital Signs 08/06/18 02:43 Temperature 97.5 F L Pulse Rate 68 Respiratory 18 Rate Blood Pressure 140/78 O2 Sat by Pulse 99 Oximetry Disposition Clinical Impression: Conjunctivitis Disposition: HOME SELF-CARE Condition: Good Instructions: Conjunctivitis (ED) Is patient prescribed a controlled substance at d/c from ED?: No Referrals: Karlo Locke MD [Primary Care Provider] - 1-2 days Mariano Enriquez MD [STAFF PHYSICIAN] - 1-2 days
[2018-08-06] MEDS ORDERED: POLYMYXIN B-TRIMETHOPRIM SULF (10,000-1) OPHTH DROPS 10 ML BTL BOTH EYES ONE (04:15)
[2018-08-06 05:11] VITALS: BP 134/79; PULSE 63; TEMP 97.6
== END 2018-08-06 05:11 | disposition home or self-care (01) ==
LOC: EC 02:35
DX: H10.9 Unspecified conjunctivitis (principal); I48.91 Unspecified atrial fibrillation; I25.119 Atherosclerotic heart disease of native coronary artery with unspecified angina pectoris; E11.9 Type 2 diabetes mellitus without complications; E78.5 Hyperlipidemia, unspecified; I10 Essential (primary) hypertension; G47.30 Sleep apnea, unspecified; Z79.02 Long term (current) use of antithrombotics/antiplatelets; Z79.01 Long term (current) use of anticoagulants; Z79.82 Long term (current) use of aspirin; Z79.84 Long term (current) use of oral hypoglycemic drugs; Z79.899 Other long term (current) drug therapy; Z88.8 Allergy status to other drugs, medicaments and biological substances; Z91.048 Other nonmedicinal substance allergy status; Z95.5 Presence of coronary angioplasty implant and graft; Z95.0 Presence of cardiac pacemaker; Z85.828 Personal history of other malignant neoplasm of skin; Z87.891 Personal history of nicotine dependence
CPT/HCPCS: 99283

== ENCOUNTER 2018-10-17 11:36 | Emergency (ER) | payer MEDICARE ==
[2018-10-17 11:47] VITALS: RESP 18; TEMP 98.2
--- NOTE | 2018-10-17 12:36 | XR ---
EXAMINATION TYPE: XR chest 2V DATE OF EXAM: 10/17/2018 COMPARISON: 04/19/2017 HISTORY: Patient felt pacemaker move. TECHNIQUE: Frontal and lateral views of the chest are obtained. FINDINGS: Dual lead left-sided cardiac device is similar in position to the prior 2017. No discontin uity of the leads or malpositioning. Pulmonary hyperinflation and flattening the diaphragms relates u nderlying COPD. No focal consolidation, pleural effusion or pneumothorax. Minimal degenerative change s of the spine. IMPRESSION: Similar and satisfactory positioning of the left sided cardiac device in comparison to t he prior 2017. No acute cardiopulmonary pathology.
--- NOTE | 2018-10-17 12:57 | ED ---
General Adult HPI - General Chief complaint: Recheck/Abnormal Lab/Rx Stated complaint: pacemaker out of place Time Seen by Provider: 10/17/18 11:57 Source: patient, RN notes reviewed Mode of arrival: ambulatory Limitations: no limitations - History of Present Illness Initial comments: This is a 88-year-old female history of a pacemaker as well as stent placement for coronary artery disease who was sent in by her electronic scale subassembler for evaluation of her pacemaker. She states she woke up this morning noted that the pacemaker seem to be in a different location than what it usually was in the left chest. She also states she pulled off of her skin a small piece of black material that she believes may have been a stitch at work his way to the surface. She has no lightheadedness dizziness blurry vision palpitations focal weakness or other symptoms report she states she feels normal and feels good but needs to get her pacemaker checked. She states is been in place well for years. She's had no problems with her thus far. She just noted that it was in a different location than per usual. He does state he is normally in the upper portion of her breast area of her chest. - Related Data Home Medications Medication Instructions Recorded Confirmed ALPRAZolam [Xanax] 0.25 mg PO HS PRN 04/27/14 10/17/18 Isosorbide Mononitrate ER [Imdur] 60 mg PO QAM 04/27/14 10/17/18 Isosorbide Mononitrate ER [Imdur] 90 mg PO HS 04/27/14 10/17/18 Nitroglycerin Sl Tabs [Nitrostat] 0.4 mg PO Q5M PRN 04/27/14 10/17/18 Simvastatin [Zocor] 20 mg PO HS 04/27/14 10/17/18 Spironolactone 50 mg PO DAILY PRN 04/27/14 10/17/18 Aspirin 81 mg PO DAILY 11/17/14 10/17/18 Apixaban [Eliquis] 5 mg PO BID 04/19/17 10/17/18 Ascorbic Acid [Vitamin C] 500 mg PO DAILY 04/19/17 10/17/18 Cholecalciferol [Vitamin D3] 3,000 unit PO TID 04/19/17 10/17/18 glipiZIDE XL [Glucotrol XL] 2.5 mg PO DAILY 04/19/17 10/17/18 Levothyroxine Sodium [Synthroid] 75 mcg PO DAILY 05/26/17 10/17/18 cloNIDine HCL [Catapres] 0.1 mg PO HS 05/26/17 10/17/18 Clopidogrel [Plavix] 75 mg PO DAILY 10/17/18 10/17/18 Metoprolol Tartrate [Lopressor] 50 mg PO QID 10/17/18 10/17/18 hydrALAZINE HCL [Apresoline] 100 mg PO TID 10/17/18 10/17/18 rOPINIRole HCL 0.5 mg PO HS 10/17/18 10/17/18 Allergies Allergy/AdvReac Type Severity Reaction Status Date / Time JORGITO Inhibitors Allergy Severe Swelling Verified 10/17/18 12:38 cortisone AdvReac Severe Rash/Hives, Verified 10/17/18 12:38 high BP Calcium Channel Blocking AdvReac SORES IN Verified 10/17/18 12:38 Agent Dilt MOUTH dust,trees Allergy Unknown Uncoded 10/17/18 11:47 Review of Systems ROS Statement: Those systems with pertinent positive or pertinent negative responses have been documented in the HPI. ROS Other: All systems not noted in ROS Statement are negative. Past Medical History Past Medical History: Atrial Fibrillation, Coronary Artery Disease (CAD), Cancer, Chest Pain / Angina, Diabetes Mellitus, GERD/Reflux, Hyperlipidemia, Hypertension, Osteoarthritis (OA), Sleep Apnea/CPAP/BIPAP, Thyroid Disorder Additional Past Medical History / Comment(s): skin cancer, restless leg syndrome, varicose veins, IBS, History of Any Multi-Drug Resistant Organisms: None Reported Past Surgical History: Breast Surgery, Cholecystectomy, Heart Catheterization With Stent, Hysterectomy, Orthopedic Surgery, Pacemaker Additional Past Surgical History / Comment(s): walt cataract, 2 stents, partial thyroidectomy, rt shoulder rotator cuff, walt breast biopsy, metal clip in rt breast Past Anesthesia/Blood Transfusion Reactions: No Reported Reaction Date of Last Stent Placement:: 2002 Type of Cardiac Device: Permanent Pacemaker Device Placement Date:: 2014 Past Psychological History: No Psychological Hx Reported Smoking Status: Former smoker Past Alcohol Use History: Occasional Past Drug Use History: None Reported - Past Family History Mother Family Medical History: Coronary Artery Disease (CAD) Brother(s) Family Medical History: Cancer Daughter(s) Family Medical History: No Reported History (Healthy 1 daughter) Son(s) History Unknown: Yes (Healthy 3 sons) Father Family Medical History: Coronary Artery Disease (CAD) General Exam - General Exam Comments Initial Comments: This is a well-developed well-nourished awake alert oriented 3 female Limitations: no limitations General appearance: alert, in no apparent distress Head exam: Present: atraumatic, normocephalic, normal inspection Eye exam: Present: normal appearance, PERRL, EOMI. Absent: scleral icterus, conjunctival injection, periorbital swelling ENT exam: Present: normal exam, mucous membranes moist Neck exam: Present: normal inspection. Absent: tenderness, meningismus, lymphadenopathy Respiratory exam: Present: normal lung sounds bilaterally, other (Examination of the chest wall reveals no tenderness palpation there is a pacemaker noted in the left upper chest wall I did investigate the site of the suspected stitch there is a small superficial lesion with no evidence of any bleeding or drainage. There is a well-healed incision javi in the left upper chest at the insertion site of the pacemaker. Palpation of the wires appear to be unremarkable.). Absent: respiratory distress, wheezes, rales, rhonchi, stridor Cardiovascular Exam: Present: regular rate, normal rhythm, normal heart sounds. Absent: systolic murmur, diastolic murmur, rubs, gallop, clicks GI/Abdominal exam: Present: soft, normal bowel sounds. Absent: distended, tenderness, guarding, rebound, rigid Extremities exam: Present: normal inspection, full ROM, normal capillary refill. Absent: tenderness, pedal edema, joint swelling, calf tenderness Back exam: Present: normal inspection Neurological exam: Present: alert, oriented X3, CN II-XII intact Psychiatric exam: Present: normal affect, normal mood Skin exam: Present: warm, dry, intact, normal color. Absent: rash Course Vital Signs 10/17/18 11:45 Temperature 98.2 F Pulse Rate 75 Respiratory 18 Rate Blood Pressure 181/86 O2 Sat by Pulse 99 Oximetry EKG Findings - EKG Results: EKG: interpreted by ERMD (Atrial sensed ventricular paced rhythm of 61 DE interval 200 QRS duration 166 QT since QTC 468/471 no acute changes are noted.) Medical Decision Making - Medical Decision Making (O further workup is indicated did discuss findings with the patient x-ray shows a pacemaker to be intact and wearing to be in place EKG shows an atrial sensed ventricular paced rhythm patient will be discharged with follow-up as planned in 3 days with her electronic scale subassembler. She will have copies of her x-ray with report as well as EKG He with her. - Radiology Data Radiology results: report reviewed (I did review the imaging and report no acute findings are seen pacemaker wires appear to be attached appropriately.), image reviewed Disposition Clinical Impression: Pacemaker displacement Disposition: HOME SELF-CARE Condition: Good Instructions (If sedation given, give patient instructions): Pacemaker (DC) Additional Instructions: No history of activity just usual activities of daily living until seen by her electronic scale subassembler. Is patient prescribed a controlled substance at d/c from ED?: No Referrals: Karlo Locke MD [Primary Care Provider] - 1-2 days
[2018-10-17 13:35] VITALS: BP 167/88; PULSE 68
== END 2018-10-17 13:11 | disposition home or self-care (01) ==
LOC: EC 11:36
DX: T82.128A Displacement of other cardiac electronic device, initial encounter (principal); I48.91 Unspecified atrial fibrillation; I25.119 Atherosclerotic heart disease of native coronary artery with unspecified angina pectoris; E11.9 Type 2 diabetes mellitus without complications; E78.5 Hyperlipidemia, unspecified; I10 Essential (primary) hypertension; G47.30 Sleep apnea, unspecified; E07.9 Disorder of thyroid, unspecified; Z79.82 Long term (current) use of aspirin; Z79.01 Long term (current) use of anticoagulants; Z79.02 Long term (current) use of antithrombotics/antiplatelets; Z79.890 Hormone replacement therapy; Z79.899 Other long term (current) drug therapy; Z88.8 Allergy status to other drugs, medicaments and biological substances; Z91.09 Other allergy status, other than to drugs and biological substances; Z95.0 Presence of cardiac pacemaker; Z95.5 Presence of coronary angioplasty implant and graft; Z87.891 Personal history of nicotine dependence
CPT/HCPCS: 71046; 93005; 99284

== ENCOUNTER → 2019-01-07 | Outpatient (CLI) | payer MEDICARE ==
--- NOTE | 2019-01-08 11:24 | MM ---
Reason for exam: screening (asymptomatic). Last mammogram was performed 1 year ago. History: Patient is postmenopausal and history of other cancer. Family history of breast cancer in maternal aunt at age 90. Benign stereotactic core biopsy of the right breast, March 20, 2001. Excisional biopsy of the left breast. Took hormonal contraceptives for 3 years beginning at age 32. Taking estrogen for 29 years beginning at age 46. Physical Findings: A clinical breast exam by your physician is recommended on an annual basis and results should be correlated with mammographic findings. MG 3D Screening Mammo W/Cad Bilateral CC and MLO view(s) were taken. Prior study comparison: January 01, 2018, bilateral MG 3d screening mammo w/cad. December 31, 2016, bilateral MG 3d diag mammo w/cad MARA. The breast tissue is heterogeneously dense. This may lower the sensitivity of mammography. There are benign appearing round linear calcifications bilaterally. Previous mammotome biopsy in the right breast. There is chronic nodularity in theright breast. There is no discrete abnormality. Left axillary pacemaker. ASSESSMENT: Benign, BI-RAD 2 RECOMMENDATION: Routine screening mammogram of both breasts in 1 year.
== END | disposition home or self-care (01) ==
LOC: RADMAMWWP 13:06
PROVIDERS: ATTEND Obstetrics & Gynecology
DX: Z12.31 Encounter for screening mammogram for malignant neoplasm of breast (principal)
CPT/HCPCS: 77063; 77067

== ENCOUNTER 2019-01-13 01:02 | Observation (INO) | payer MEDICARE ==
[2019-01-13 02:15] LABS: Basophils # (A) 0.1 k/uL (0-0.2); Basophils % (A) 1 %; Eosinophils # (A) 0.2 k/uL (0-0.7); Eosinophils % (A) 3 %; HCT 42.4 % (34.0-46.0); HGB 13.8 gm/dL (11.4-16.0); Lymphocytes # (A) 1.7 k/uL (1.0-4.8); Lymphocytes % (A) 24 %; MCH 30.4 pg (25.0-35.0); MCHC 32.6 g/dL (31.0-37.0); MCV 93.2 fL (80.0-100.0); Mean Platelet Volume 7.6; Monocytes # (A) 0.8 k/uL (0-1.0); Monocytes % (A) 11 %; Neutrophils # (A) 4.3 k/uL (1.3-7.7); Neutrophils % (A) 59 %; Platelet Count 224 k/uL (150-450); RBC 4.55 m/uL (3.80-5.40); RDW 14.2 % (11.5-15.5); WBC 7.3 k/uL (3.8-10.6)
[2019-01-13 02:23] LABS: INR 0.9 (<1.2); Partial Thromboplastin Time 25.3 sec (22.0-30.0); Prothrombin Time 10.1 sec (9.0-12.0)
[2019-01-13 02:24] LABS: Albumin 3.6 g/dL (3.5-5.0); Calcium 9.5 mg/dL (8.4-10.2); Potassium 4.7 mmol/L (3.5-5.1); Total Bilirubin 0.4 mg/dL (0.2-1.3); Total Protein 6.4 g/dL (6.3-8.2)
--- NOTE | 2019-01-13 02:50 | XR ---
EXAM: XR Chest, 2 Views CLINICAL HISTORY: ITS.REASON XR Reason: Chest Pain TECHNIQUE: Frontal and lateral views of the chest. COMPARISON: None available FINDINGS: Lungs: No focal pulmonary infiltrates or consolidations. Mild right base subsegmental atelectasis. Pleural space: No evidence of pleural effusion or pneumothorax. Heart: Heart size is within normal limits. Mediastinum: Mediastinal structures are unremarkable. Bones/joints: Mild degenerative changes involve the thoracic spine. Vasculature: Thoracic aorta is mildly elongated. Tubes, lines and devices: Cardiac pacer has leads extending to region of right atrium and ventricle. IMPRESSION: No evidence of acute cardiopulmonary disease.
--- NOTE | 2019-01-13 03:04 | ED ---
Chest Pain HPI - General Chief Complaint: Chest Pain Stated Complaint: Chest Pain Time Seen by Provider: 01/13/19 01:43 Source: patient Mode of arrival: wheelchair Limitations: no limitations - History of Present Illness Initial Comments: 88 year-old female patient with past medical history significant for coronary artery disease presents to the emergency department today for evaluation of chest pain. Patient states that the chest pain started around 5 or 6pm this evening after she lifted a bag of soil and carried in the groceries. States that she did take nitro tablet which did relieve the pain however it would return. States took a total of 3 nitro. States she also took a total of 3 - 0.1 mg Catapres tablets due to high blood pressure. Patient states her blood pressure has been elevated over the last few days. Patient states that she does get short of breath with activity. She denies any nausea or vomiting. Denies any abdominal pain. Patient denies any recent rash, fever, chills, cough, diarrhea, constipation, back pain, numbness, tingling, dizziness, weakness, hematuria, dysuria, urinary urgency, urinary frequency, headache, visual changes, or any other complaints. - Related Data Allergies Allergy/AdvReac Type Severity Reaction Status Date / Time JORGITO Inhibitors Allergy Swelling Verified 01/13/19 01:11 Calcium Channel Blocking Allergy Swelling Verified 01/13/19 01:11 Agent Dilt cortisone Allergy Unknown Verified 01/13/19 01:11 Review of Systems ROS Statement: Those systems with pertinent positive or pertinent negative responses have been documented in the HPI. ROS Other: All systems not noted in ROS Statement are negative. EKG Findings - EKG Comments: EKG Findings:: EKG obtained at 08 29 shows electronic ventricular pacemaker, ventricular rate is 63, RI interval 190, QRS duration 156, QT 456, QTc 466. No evidence of ST elevation or depression. Past Medical History Past Medical History: Diabetes Mellitus, Hypertension, Sleep Apnea/CPAP/BIPAP History of Any Multi-Drug Resistant Organisms: None Reported Past Surgical History: Adenoidectomy, Appendectomy, Cholecystectomy, Heart Catheterization With Stent, Hysterectomy, Pacemaker, Tonsillectomy Past Psychological History: Anxiety Smoking Status: Former smoker Past Alcohol Use History: Occasional Past Drug Use History: None Reported General Exam Limitations: no limitations General appearance: alert, in no apparent distress, other (Physical well- developed, well-nourished elderly female patient in no acute distress. Vital signs upon presentation are temperature 97.5F, pulse 69, respirations 20, blood pressure 186/91, pulse ox 97% on room air.) Eye exam: Present: normal appearance, PERRL, EOMI. Absent: scleral icterus, conjunctival injection, periorbital swelling ENT exam: Present: normal exam, normal oropharynx, mucous membranes moist Respiratory exam: Present: normal lung sounds bilaterally. Absent: respiratory distress, wheezes, rales, rhonchi, stridor Cardiovascular Exam: Present: regular rate, normal rhythm, normal heart sounds. Absent: systolic murmur, diastolic murmur, rubs, gallop, clicks GI/Abdominal exam: Present: soft, normal bowel sounds. Absent: distended, tenderness, guarding, rebound, rigid Neurological exam: Present: alert, oriented X3, CN II-XII intact Psychiatric exam: Present: normal affect, normal mood Skin exam: Present: warm, dry, intact, normal color. Absent: rash Course Vital Signs 01/13/19 01/13/19 01/13/19 01:06 02:33 03:30 Temperature 97.5 F L Pulse Rate 69 58 L 64 Respiratory 20 Rate Blood Pressure 186/91 152/85 134/75 O2 Sat by Pulse 97 Oximetry 01/13/19 01/13/19 04:00 04:30 Temperature Pulse Rate 60 60 Respiratory 22 Rate Blood Pressure 144/96 148/96 O2 Sat by Pulse 96 93 L Oximetry Chest Pain [facility] RADIOLOGY:Two-view x-ray of the chest is obtained. Report reviewed in its entirety. Impression by Dr. Mccann shows no evidence of acute cardiopulmonary disease. MDM: 88 year-old female patient presents the emergency department today for evaluation of chest pain. Patient states she took 3 nitro at home which did seem to relieve the pain however returned. Patient was reporting some shortness of breath with this but denies any nausea or vomiting. Physical examination is relatively unremarkable. Initial troponin is negative. Patient does have history of cardiac stenting and coronary artery disease. We will admit to the hospital for observation and evaluation by cardiology tomorrow. We'll repeat troponins. Disposition Clinical Impression: Chest pain Disposition: ADMITTED IP TO THIS [facility] Condition: Serious Decision to Admit Reason: Admit from EC Decision Date: 01/13/19 Decision Time: 04:15
[2019-01-13] MEDS ORDERED: NITROGLYCERIN SL TABS 0.4 MG TAB SUBLINGUAL PRN (04:15)
[2019-01-13 05:30] VITALS: BMI 32.3
[2019-01-13] MEDS ORDERED: ISOSORBIDE MONONITRATE ER 60 MG TAB.ER.24H PO SCH (09:45)
[2019-01-13] MEDS ORDERED: cloNIDine HCL 0.1 MG TAB PO SCH (09:45)
[2019-01-13] MEDS ORDERED: CLOPIDOGREL 75 MG TAB PO SCH (09:45)
[2019-01-13] MEDS ORDERED: APIXABAN 5 MG TAB PO SCH (09:45)
--- NOTE | 2019-01-13 09:46 | P.CRDCN ---
History of Present Illness History of present illness: This is a pleasant 88 showed female past medical history significant for paroxysmal atrial fibrillation on long-term anticoagulation, coronary artery disease status post stent placement most recently in April 2018, hypertension, diabetes mellitus, obstructive sleep apnea and permanent pacing maker implantation. She follows with Dr. Glaser out of [place] for cardiology. We've been asked to see her in consultation secondary to chest discomfort. She states yesterday while she was at [facility] she lifted a heavy bag of potting soil into her car. She knew associated she overexerted herself. Shortly thereafter she started feeling a full sensation in the epigastric regio n. There is no radiation to the arm, back, neck or jaw. She denies associated shortness of breath, dizziness, nausea, palpitations or diaphoresis. She did take a sublingual nitroglycerin which relieved her pain however the pain came back again and she took another one. She took a total of 3 nitroglycerin. She also states that she struggles with uncontrolled hypertension. She has a prescription for Catapres that she takes as needed for high blood pressure and checks her blood pressure regularly at home. She states she had taken 3 Catapres tablets yesterday for uncontrolled hypertension as well. At the time of my exam she is seen resting comfortably in no acute distress. She denies si gnificant chest discomfort however does have reproducible pain when deep palpation is applied to the epigastric region. She states she underwent stent placement in April 2018 with her primary trust vault custodian. Prior to that she had an initial stent placed in 2004 and then subsequently thereafter had some in-stent restenosis with repeat angioplasty. She also discusses how she has felt increasingly short of breath since about July. She states she has stairs at her home and when she walks up the stairs by the time she gets to the top she is extremely short of breath. This is somewhat new for her she has never experienced this shortness of breath in the past. Blood pressure on arrival was 186/91. She also states she does a lot of "self doctoring" with her medications and blood pressure management. EKG reveals ventricular paced rhythm, underlying sinus P waves noted in all leads. Chest x-ray is negative for an acute cardiopulmonary process. Laboratory data reviewed, WBC 7.3, hemoglobin 13.8, platelets 224, sodium 137, potassium 4.7, creatinine 0.76, magnesium 2.0, cardiac enzymes negative 2. Current cardiac medications include aspirin 81 mg daily, Plavix 75 mg daily, Eliquis 5 mg twice a day, atorvastatin 20 mg daily, Imdur 60 mg in the morning and 90 mg at bedtime, Lopressor 50 mg 4 times a day, clonidine 0.1 mg twice a day and when necessary for elevated blood pressure and hydralazine 100 mg 3 times a day. At the time of my exam: CONSTITUTIONAL: Denies fever. Denies chills. EYES: Denies blurred vision. Denies vision changes. Denies eye pain. EARS, NOSE, MOUTH & THROAT: Denies headache. Denies sore throat. Denies ear pain. CARDIOVASCULAR: Denies chest pain. Denies shortness of breath. Denies orthopnea. Denies PND. Denies palpitations. RESPIRATORY: Denies cough. GASTROINTESTINAL: Denies abdominal pain. Denies diarrhea. Denies constipation. Denies nausea. Denies vomiting. MUSCULOSKELETAL: Denies myalgias. INTEGUMENTARY: Denies pruitis. Denies rash. NEUROLOGIC: Denies numbness. Denies tingling. Denies weakness. PSYCHIATRIC: Denies anxiety. Denies depression. ENDOCRINE: Denies fatigue. Denies weight change. Denies polydipsia. Denies polyurina. GENITOURINARY: Denies burning, hematuria or urgency with micturation. HEMATOLOGIC: Denies history of anemia. Denies bleeding. Blood pressure 148/96 heart rate 60 afebrile maintaining oxygen saturation on room air GENERAL: This is a 88-year-old female in no apparent distress at the time of my examination. HEENT: Head is atraumatic, normocephalic. Pupils are equal, round. Sclerae anicteric. Conjunctivae are clear. Mucous membranes of the mouth are moist. Neck is supple. There is no jugular venous distention. No carotid bruit is heard. LUNGS: Clear to auscultation no wheezes, rales or rhonchi. No chest wall tenderness is noted on palpation or with deep breathing. HEART: Regular rate and rhythm without murmurs, rubs or gallops. S1 and S2 heard. ABDOMEN: Soft, nontender. Bowel sounds are heard. No organomegaly noted. EXTREMITIES: No evidence of peripheral edema and no calf tenderness noted. VASCULAR: Radial and dorsalis pedis pulses palpated, no evidence of clubbing. NEUROLOGIC: Patient is awake, alert and oriented x3. ASSESSMENT Chest pain, atypical for angina. Most likely related to muskuloskeletal strain from heavy lifting. History of coronary artery disease s/p stent placement Hypertension, uncontrolled. Pt admits to making adjustments on her own at home based on home readings. Dyslipidemia Paroxysmal atrial fibrillation on alf anticoagulation History of tachy-eliud syndrome s/p permanent pacemaker implantation Diabetes mellitus Sleep apnea PLAN Continue to obtain serial cardiac enzymes to rule out an acute event. Obtain 2D echocardiogram and doppler study to assess cardiac structure and function. Obtain report of recent catheterization from [facility] for review. Resume home medications with the exception of aspirin. Triple therapy is not recommended. Increase activity and ambulation in the halls and assess for ongoing chest discomfort. Thank you kindly for this consultation. Nurse Practitioner note has been reviewed, I agree with a documented findings and plan of care. Patient was seen and examined. Past Medical History Past Medical History: Diabetes Mellitus, Hypertension, Sleep Apnea/CPAP/BIPAP History of Any Multi-Drug Resistant Organisms: None Reported Past Surgical History: Adenoidectomy, Appendectomy, Cholecystectomy, Heart Catheterization With Stent, Hysterectomy, Pacemaker, Tonsillectomy Past Anesthesia/Blood Transfusion Reactions: No Reported Reaction Date of Last Stent Placement:: 1998 Type of Cardiac Device: Permanent Pacemaker, Unknown Device Placement Date:: 2014 Past Psychological History: Anxiety Smoking Status: Former smoker Past Alcohol Use History: Occasional Past Drug Use History: None Reported Medications and Allergies Home Medications Medication Instructions Recorded Confirmed Type Apixaban [Eliquis] 5 mg PO BID 01/13/19 01/13/19 History Aspirin [[place] Aspirin EC] 81 mg PO DAILY 01/13/19 01/13/19 History Cholecalciferol (Vitamin D3) 2,000 unit PO DAILY 01/13/19 01/13/19 History [Vitamin D3] Clopidogrel [Plavix] 75 mg PO DAILY 01/13/19 01/13/19 History Estradiol 0.05MG/24Hr Biwkptch 1 patch TRANSDERM MOFR 01/13/19 01/13/19 History [Vivelle-Dot 0.05 MG] Isosorbide Mononitrate ER [Imdur] 60 mg PO DAILY 01/13/19 01/13/19 History Isosorbide Mononitrate ER [Imdur] 90 mg PO HS 01/13/19 01/13/19 History Levothyroxine Sodium [Synthroid] 75 mcg PO DAILY 01/13/19 01/13/19 History Metoprolol Tartrate [Lopressor] 50 mg PO QID 01/13/19 01/13/19 History Nitroglycerin Sl Tabs [Nitrostat] 0.4 mg SL Q5M PRN 01/13/19 01/13/19 History cloNIDine HCL [Catapres] 0.1 mg PO BID 01/13/19 01/13/19 History clonazePAM [KlonoPIN] 0.5 mg PO HS 01/13/19 01/13/19 History glipiZIDE XL [Glucotrol XL] 2.5 mg PO DAILY 01/13/19 01/13/19 History hydrALAZINE HCL [Apresoline] 100 mg PO TID 01/13/19 01/13/19 History traMADol HCL [Ultram] 50 mg PO DAILY PRN 01/13/19 01/13/19 History Allergies Allergy/AdvReac Type Severity Reaction Status Date / Time JORGITO Inhibitors Allergy Swelling Verified 01/13/19 07:49 Calcium Channel Blocking Allergy Swelling Verified 01/13/19 07:49 Agent Dilt cortisone Allergy Unknown Verified 01/13/19 07:49 Physical Exam Vitals: Vital Signs Temp Pulse Pulse Resp BP BP Pulse Ox 01/13/19 05:32 97.5 F L 67 16 149/76 97 01/13/19 04:48 97.7 F 01/13/19 04:30 60 148/96 93 L 01/13/19 04:00 60 22 144/96 96 01/13/19 03:30 64 134/75 01/13/19 02:33 58 L 152/85 01/13/19 01:06 97.5 F L 69 20 186/91 97 Intake and Output 01/12/19 01/13/19 01/13/19 22:59 06:59 14:59 Other: # Voids 1 Weight 87.997 kg Results 01/13/19 02:00 01/13/19 02:00 Cardiac Enzymes 01/13/19 01/13/19 Range/Units 02:00 02:00 AST 26 (14-36) U/L Troponin I <0.012 (0.000-0.034) ng/mL Coagulation 01/13/19 Range/Units 02:00 PT 10.1 (9.0-12.0) sec APTT 25.3 (22.0-30.0) sec CBC 01/13/19 Range/Units 02:00 WBC 7.3 (3.8-10.6) k/uL RBC 4.55 (3.80-5.40) m/uL Hgb 13.8 (11.4-16.0) gm/dL Hct 42.4 (34.0-46.0) % Plt Count 224 (150-450) k/uL Comprehensive Metabolic Panel 01/13/19 Range/Units 02:00 Sodium 137 (137-145) mmol/L Potassium 4.7 (3.5-5.1) mmol/L Chloride 104 (98-107) mmol/L Carbon Dioxide 26 (22-30) mmol/L BUN 30 H (7-17) mg/dL Creatinine 0.76 (0.52-1.04) mg/dL Glucose 134 H (74-99) mg/dL Calcium 9.5 (8.4-10.2) mg/dL AST 26 (14-36) U/L ALT 19 (9-52) U/L Alkaline Phosphatase 55 (38-126) U/L Total Protein 6.4 (6.3-8.2) g/dL Albumin 3.6 (3.5-5.0) g/dL Current Medications Generic Name Dose Route Start Last Admin Trade Name Freq PRN Reason Stop Dose Admin Aspirin 325 mg 01/14/19 09:00 Aspirin PO DAILY DULCE Nitroglycerin 0.4 mg 01/13/19 04:15 Nitrostat SUBLINGUAL Q5M PRN Chest Pain Sodium Chloride 10 ml 01/13/19 09:00 Saline Flush IV BID DULCE Intake and Output 01/12/19 01/13/19 01/13/19 22:59 06:59 14:59 Other: # Voids 1 Weight 87.997 kg 01/13/19 02:00 01/13/19 02:00
[2019-01-13] MEDS: hydrALAZINE HCL 50 MG TAB PO SCH ×2 (09:55→16:59)
[2019-01-13] MEDS: METOPROLOL TARTRATE 50 MG TAB PO SCH ×2 (09:55→14:31)
[2019-01-13 11:34] VITALS: BP 127/58; PULSE 69; RESP 18; TEMP 97.7
--- NOTE | 2019-01-13 15:51 | P.HPIM ---
History of Present Illness H&P Date: 01/13/19 HISTORY AND PHYSICAL AND DISCHARGE SUMMARY: This is a 88-year-old female patient of Dr. Locke with past medical history of paroxysmal atrial fibrillation on long-term anticoagulation with eliquis, coronary artery disease status post stent placement most recently in April 2018, hypertension, diabetes mellitus 2, obstructive sleep apnea and permanent pacing maker implantation. She follows with Dr. Glaser out of [place] for cardiology. Patient complains of having chest pain after she was shopping and lifting groceries at [facility]. She did have somebody assist her with groceries into her car. She states that she went home and was resting in the chair and ended up taking Catapres followed by nitroglycerin followed by indoor and eventually the pain went away. The couple hours later it returned. She states she has had episodes of chest pain since she had stent placement and before stent placement in April. She uses nitroglycerin to control the pain. She states she also has some shortness of breath. She states she does have increasing shortness of breath when she goes up steps. She denies any history of heart failure. Patient has been ambulating today with no chest pain. Patient came into [facility] emergency center for evaluation. EKG reveals ventricular paced rhythm, underlying sinus P waves noted in all l inez. Initial blood pressure 186/91. Chest x-ray is negative for an acute cardiopulmonary process. WBC 7.3, hemoglobin 13.8, platelets 224, sodium 137, potassium 4.7, creatinine 0.76, magnesium 2.0, cardiac enzymes negative 2. Patient was placed on the observation unit and patient has been seen by cardiology with plan for echocardiogram, obtain recent heart catheterization report from [place] to review, repeat troponin, increase activity and assess for ongoing chest discomfort. Blood pressures improved to 127/58, pulse of 95% on room air. Cardiology has reviewed echocardiogram and patient has been cleared for discharge home. Patient will be discharged in stable condition. Review of Systems All systems: negative Constitutional: Denies chills, Denies fatigue, Denies fever, Denies lethargy, Denies malaise, Denies poor appetite, Denies weakness Eyes: denies blurred vision, denies pain Ears, nose, mouth and throat: Denies dysphagia, Denies headache, Denies sore throat, Denies vertigo Cardiovascular: Reports chest pain, Reports decreased exercise tolerance, Reports dyspnea on exertion, Reports shortness of breath, Denies leg edema, D enies lightheadedness, Denies orthopnea, Denies syncope Respiratory: Denies cough, Denies cough with sputum, Denies dyspnea Gastrointestinal: Denies abdominal pain, Denies diarrhea, Denies loss of appetite, Denies melena, Denies nausea, Denies vomiting Genitourinary: Denies dysuria, Denies hematuria, Denies urgency Musculoskeletal: Denies frequent falls, Denies gait dysfunction, Denies muscle weakness, Denies myalgias Integumentary: Denies pruritus, Denies rash, Denies wounds Neurological: Denies numbness, Denies weakness Psychiatric: Denies anxiety, Denies depression Endocrine: Denies fatigue, Denies weight change Past Medical History Past Medical History: Coronary Artery Disease (CAD), Diabetes Mellitus, Hypertension, Sleep Apnea/CPAP/BIPAP History of Any Multi-Drug Resistant Organisms: None Reported Past Surgical History: Adenoidectomy, Appendectomy, Cholecystectomy, Heart Catheterization With Stent, Hysterectomy, Pacemaker, Tonsillectomy Past Anesthesia/Blood Transfusion Reactions: No Reported Reaction Date of Last Stent Placement:: 1998 Type of Cardiac Device: Permanent Pacemaker, Unknown Device Placement Date:: 2014 Past Psychological History: Anxiety Smoking Status: Former smoker Past Alcohol Use History: Occasional Additional Past Alcohol Use History / Comment(s): The patient was a smoker briefly as a kid. She drinks alcohol occasionally. Past Drug Use History: None Reported - Past Family History Father Additional Family Medical History / Comment(s): Father at age 59 from a myocardial infarction. Mother Additional Family Medical History / Comment(s): Mother at age 76 from massive stroke. Brother(s) Additional Family Medical History / Comment(s): The patient had a total of 3 brothers. One brother from melanoma. One brother is with history of coronary artery disease status post CABG. One brother has from colon cancer with history of coronary artery disease. Patient does not have any sisters. Son(s) Additional Family Medical History / Comment(s): Patient has 3 sons and 1 daughter. One son has history of coronary artery disease, second son has history of AICD. Patient has 1 son and 1 daughter with no major medical problems. Daughter(s) Family Medical History: No Reported History (Healthy 1 daughter) Medications and Allergies Home Medications Medication Instructions Recorded Confirmed Type ALPRAZolam [Xanax] 0.25 mg PO HS PRN 04/27/14 10/17/18 History Isosorbide Mononitrate ER [Imdur] 60 mg PO QAM 04/27/14 10/17/18 History Isosorbide Mononitrate ER [Imdur] 90 mg PO HS 04/27/14 10/17/18 History Nitroglycerin Sl Tabs [Nitrostat] 0.4 mg PO Q5M PRN 04/27/14 10/17/18 History Simvastatin [Zocor] 20 mg PO HS 04/27/14 10/17/18 History Spironolactone 50 mg PO DAILY PRN 04/27/14 10/17/18 History Aspirin 81 mg PO DAILY 11/17/14 10/17/18 History Apixaban [Eliquis] 5 mg PO BID 04/19/17 10/17/18 History Ascorbic Acid [Vitamin C] 500 mg PO DAILY 04/19/17 10/17/18 History Cholecalciferol [Vitamin D3 (25 3,000 unit PO TID 04/19/17 10/17/18 History Mcg = 1000 Iu)] glipiZIDE XL [Glucotrol XL] 2.5 mg PO DAILY 04/19/17 10/17/18 History Levothyroxine Sodium [Synthroid] 75 mcg PO DAILY 05/26/17 10/17/18 History cloNIDine HCL [Catapres] 0.1 mg PO HS 05/26/17 10/17/18 History Clopidogrel [Plavix] 75 mg PO DAILY 10/17/18 10/17/18 History Metoprolol Tartrate [Lopressor] 50 mg PO QID 10/17/18 10/17/18 History hydrALAZINE HCL [Apresoline] 100 mg PO TID 10/17/18 10/17/18 History rOPINIRole HCL 0.5 mg PO HS 10/17/18 10/17/18 History Apixaban [Eliquis] 5 mg PO BID 01/13/19 01/13/19 History Aspirin [[place] Aspirin EC] 81 mg PO DAILY 01/13/19 01/13/19 History Cholecalciferol (Vitamin D3) 2,000 unit PO DAILY 01/13/19 01/13/19 History [Vitamin D3] Clopidogrel [Plavix] 75 mg PO DAILY 01/13/19 01/13/19 History Estradiol 0.05MG/24Hr Biwkptch 1 patch TRANSDERM MOFR 01/13/19 01/13/19 History [Vivelle-Dot 0.05 MG] Isosorbide Mononitrate ER [Imdur] 60 mg PO DAILY 01/13/19 01/13/19 History Isosorbide Mononitrate ER [Imdur] 90 mg PO HS 01/13/19 01/13/19 History Levothyroxine Sodium [Synthroid] 75 mcg PO DAILY 01/13/19 01/13/19 History Metoprolol Tartrate [Lopressor] 50 mg PO QID 01/13/19 01/13/19 History Nitroglycerin Sl Tabs [Nitrostat] 0.4 mg SL Q5M PRN 01/13/19 01/13/19 History cloNIDine HCL [Catapres] 0.1 mg PO BID 01/13/19 01/13/19 History clonazePAM [KlonoPIN] 0.5 mg PO HS 01/13/19 01/13/19 History glipiZIDE XL [Glucotrol XL] 2.5 mg PO DAILY 01/13/19 01/13/19 History hydrALAZINE HCL [Apresoline] 100 mg PO TID 01/13/19 01/13/19 History traMADol HCL [Ultram] 50 mg PO DAILY PRN 01/13/19 01/13/19 History Allergies Allergy/AdvReac Type Severity Reaction Status Date / Time JORGITO Inhibitors Allergy Severe Swelling Verified 01/13/19 12:58 cortisone AdvReac Severe Rash/Hives, Verified 01/13/19 12:58 high BP Calcium Channel Blocking AdvReac SORES IN Verified 01/13/19 12:58 Agent Dilt MOUTH dust,trees Allergy Unknown Uncoded 01/13/19 12:58 Physical Exam Vitals: Vital Signs Temp Pulse Pulse Resp BP BP Pulse Ox 01/13/19 05:32 97.5 F L 67 16 149/76 97 01/13/19 04:48 97.7 F 01/13/19 04:30 60 148/96 93 L 01/13/19 04:00 60 22 144/96 96 01/13/19 03:30 64 134/75 01/13/19 02:33 58 L 152/85 01/13/19 01:06 97.5 F L 69 20 186/91 97 Intake and Output 01/12/19 01/13/19 01/13/19 22:59 06:59 14:59 Other: # Voids 1 Weight 87.997 kg Gen: This is an 88-year-old female. She is sitting on the edge of the bed and appears to be comfortable and in no acute distress. HEENT: Head is atraumatic, normocephalic. Pupils equal, round. Sclerae is anicteric. NECK: Supple. No JVD. No lymphadenopathy. No thyromegaly. LUNGS: Clear to auscultation. No wheezes or rhonchi. No intercostal retractions. HEART: Regular rate and rhythm. Systolic and diastolic murmur. ABDOMEN: Soft. Bowel sounds are present. No masses. No tenderness. EXTREMITIES: No pedal edema. No calf tenderness. NEUROLOGICAL: Patient is awake, alert and oriented x3. Cranial nerves 2 through 12 are grossly intact. Results CBC & Chem 7: 01/13/19 02:00 01/13/19 02:00 Labs: Abnormal Lab Results - Last 24 Hours (Table) 01/13/19 Range/Units 02:00 BUN 30 H (7-17) mg/dL Glucose 134 H (74-99) mg/dL Thrombosis Risk Factor Assmnt - Choose All That Apply Any of the Below Risk Factors Present?: Yes Each Factor Represents 1 point: Obesity (BMI >25) Each Risk Factor Represents 3 Points: Age 75 years or older Other congenital or acquired thrombophilia - If yes, enter type in comment: No Thrombosis Risk Factor Assessment Total Risk Factor Score: 4 Thrombosis Risk Factor Assessment Level: Moderate Risk Assessment and Plan Plan: 1. Chest pain with negative troponins. Possibly related to lifting groceries. 2. History of coronary artery disease status post 3 stents most recently done in April. 3. Hypertension. 4. Hyperlipidemia. 5. Paroxysmal atrial fibrillation on eliquis. 6. History of tachybradycardia syndrome status post permanent pacemaker. 7. Diabetes mellitus type 2. 8. Sleep apnea. Patient placed on the observation unit. Discharge plan: Home Impression and plan of care have been directed as dictated by the signing physician. Tereza Arnett nurse practitioner acting as scribe for signing physician.
[2019-01-13] MEDS ORDERED: ATORVASTATIN 20 MG TAB PO SCH (21:00)
[2019-01-13] MEDS ORDERED: ISOSORBIDE MONONITRATE ER 30 MG TAB.ER.24H PO SCH (21:00)
[2019-01-14] MEDS ORDERED: ASPIRIN 325 MG TAB PO SCH (09:00)
--- NOTE | 2019-01-20 11:27 | ECHOF ---
Referral Reason: MEASUREMENTS -------- HEIGHT: 165.1 cm WEIGHT: 88.0 kg BP: 149/76 IVSd: 1.7 cm (0.6 - 1.1) LVIDd: 4.1 cm (3.9 - 5.3) LVPWd: 1.4 cm (0.6 - 1.1) IVSs: 1.8 cm LVIDs: 1.6 cm LVPWs: 1.7 cm LAESV Index (A-L): 27.20 ml/m Ao Diam: 3.3 cm (2.0 - 3.7) AV Cusp: 1.8 cm (1.5 - 2.6) LA Diam: 3.4 cm (2.7 - 3.8) MV EXCURSION: 12.495 mm (> 18.000) MV EF SLOPE: 56 mm/s (70 - 150) EPSS: 1.0 cm MV E Gordo: 1.21 m/s MV DecT: 214 ms MV A Gordo: 1.16 m/s MV E/A Ratio: 1.05 AV maxP.20 mmHg AV meanP.19 mmHg RAP: 5.00 mmHg RVSP: 19.97 mmHg FINDINGS -------- Sinus rhythm. Pacerwire seen in RV and RA. This was a technically good study. The left ventricular size is normal. There is moderate concentric left ventricular hypertrophy. O verall left ventricular systolic function is normal with, an EF between 55 - 60 %. The right ventricle is normal in size. Normal LA size by volume 22+/-6 ml/m2. The right atrial size is normal. Interatrial and interventricular septum intact. Aortic valve is trileaflet and is mildly thickened. The mitral valve leaflets are mildly thickened. Mild mitral annular calcification present. Mild m itral regurgitation is present. Mild tricuspid regurgitation present. The right ventricular systolic pressure, as measured by Doppl er, is 19.97mmHg. There is no pulmonic regurgitation present. The aortic root size is normal. Normal inferior vena cava with normal inspiratory collapse consistent with estimated right atrial pre ssure of 5 mmHg. There is no pericardial effusion. CONCLUSIONS -------- 1. Sinus rhythm. 2. Pacerwire seen in RV and RA. 3. This was a technically good study. 4. The left ventricular size is normal. 5. There is moderate concentric left ventricular hypertrophy. 6. Overall left ventricular systolic function is normal with, an EF between 55 - 60 %. 7. The right ventricle is normal in size. 8. Normal LA size by volume 22+/-6 ml/m2. 9. The right atrial size is normal. 10. Interatrial and interventricular septum intact. 11. Aortic valve is trileaflet and is mildly thickened. 12. The mitral valve leaflets are mildly thickened. 13. Mild mitral annular calcification present. 14. Mild mitral regurgitation is present. 15. Mild tricuspid regurgitation present. 16. The right ventricular systolic pressure, as measured by Doppler, is 19.97mmHg. 17. There is no pulmonic regurgitation present. 18. The aortic root size is normal. 19. Normal inferior vena cava with normal inspiratory collapse consistent with estimated right atrial pressure of 5 mmHg. 20. There is no pericardial effusion. [employer]: Kayce Ricketts RDCS
== END 2019-01-13 17:15 | disposition home or self-care (01) ==
LOC: EC 01:02 → MERGE 04:18 → 1SOBS 04:18
PROVIDERS: ADMIT Internal Medicine; ATTEND Internal Medicine
DX: R07.89 Other chest pain (principal); R06.02 Shortness of breath; I25.10 Atherosclerotic heart disease of native coronary artery without angina pectoris; I10 Essential (primary) hypertension; G47.33 Obstructive sleep apnea (adult) (pediatric); E11.9 Type 2 diabetes mellitus without complications; F41.9 Anxiety disorder, unspecified; I48.0 Paroxysmal atrial fibrillation; E78.5 Hyperlipidemia, unspecified; I49.5 Sick sinus syndrome; E66.9 Obesity, unspecified; Z68.32 Body mass index [BMI] 32.0-32.9, adult; Z79.84 Long term (current) use of oral hypoglycemic drugs; Z79.890 Hormone replacement therapy; Z79.82 Long term (current) use of aspirin; Z79.02 Long term (current) use of antithrombotics/antiplatelets; Z79.01 Long term (current) use of anticoagulants; Z79.891 Long term (current) use of opiate analgesic; Z79.899 Other long term (current) drug therapy; Z88.8 Allergy status to other drugs, medicaments and biological substances; Z91.048 Other nonmedicinal substance allergy status; Z95.0 Presence of cardiac pacemaker; Z95.5 Presence of coronary angioplasty implant and graft; Z99.89 Dependence on other enabling machines and devices; Z90.49 Acquired absence of other specified parts of digestive tract; Z90.710 Acquired absence of both cervix and uterus; Z87.891 Personal history of nicotine dependence; Z82.49 Family history of ischemic heart disease and other diseases of the circulatory system; Z80.8 Family history of malignant neoplasm of other organs or systems; Z82.3 Family history of stroke; Z80.0 Family history of malignant neoplasm of digestive organs
CPT/HCPCS: 99285; 36415; 94760; 93005; 93306; 83880; 80053; 83735; 84484; 85025; 85610; 85730; 71046; G0378

== ENCOUNTER 2019-01-16 21:31 | Observation (INO) | payer MEDICARE ==
--- NOTE | 2019-01-16 22:04 | ED ---
Chest Pain HPI - General Chief Complaint: Chest Pain Stated Complaint: Chest pain Time Seen by Provider: 01/16/19 21:47 Source: patient, RN notes reviewed Mode of arrival: ambulatory Limitations: no limitations - History of Present Illness Initial Comments: This 88-year-old female history of heart disease atrial fibrillation with a pacemaker who was recently hospitalized for chest pain who is back today with complaints of chest pain and elevated blood pressure. She states she had the Sr well most of the day has some nausea she notes her blood pressure home was 210/97 she had midsternal chest pain the felt like some a uterine a chest 5-6/10 in severity. She did take 3 nitroglycerin at home with resolution of the pain she does have some reproducible pain is different than the pain she describes. No cough no phlegm production no other modifying factors at this time. MD Complaint: chest pain, other - Related Data Home Medications Medication Instructions Recorded Confirmed Nitroglycerin Sl Tabs [Nitrostat] 0.4 mg PO Q5M PRN 04/27/14 01/16/19 Aspirin 81 mg PO DAILY 11/17/14 01/16/19 Apixaban [Eliquis] 5 mg PO BID 04/19/17 01/16/19 Ascorbic Acid [Vitamin C] 500 mg PO DAILY 04/19/17 01/16/19 Cholecalciferol [Vitamin D3 (25 3,000 unit PO TID 04/19/17 01/16/19 Mcg = 1000 Iu)] glipiZIDE XL [Glucotrol XL] 2.5 mg PO DAILY 04/19/17 01/16/19 Levothyroxine Sodium [Synthroid] 75 mcg PO DAILY 05/26/17 01/16/19 Clopidogrel [Plavix] 75 mg PO DAILY 10/17/18 01/16/19 hydrALAZINE HCL [Apresoline] 100 mg PO TID 10/17/18 01/16/19 Estradiol 0.05MG/24Hr Biwkptch 1 patch TRANSDERM MOFR 01/13/19 01/16/19 [Vivelle-Dot 0.05 MG] cloNIDine HCL [Catapres] 0.1 mg PO BID 01/13/19 01/16/19 clonazePAM [KlonoPIN] 0.5 mg PO HS 01/13/19 01/16/19 traMADol HCL [Ultram] 50 mg PO DAILY PRN 01/13/19 01/16/19 Previous Rx's Medication Instructions Recorded Isosorbide Mononitrate ER [Imdur] 60 mg PO DAILY tab.er.24h 01/13/19 Metoprolol Tartrate [Lopressor] 50 mg PO QID tab 01/13/19 Allergies Allergy/AdvReac Type Severity Reaction Status Date / Time JORGITO Inhibitors Allergy Severe Swelling Verified 01/16/19 21:50 cortisone AdvReac Severe Rash/Hives, Verified 01/16/19 21:50 high BP Calcium Channel Blocking AdvReac SORES IN Verified 01/16/19 21:50 Agent Dilt MOUTH dust,trees Allergy Unknown Uncoded 01/16/19 21:41 Review of Systems ROS Statement: Those systems with pertinent positive or pertinent negative responses have been documented in the HPI. ROS Other: All systems not noted in ROS Statement are negative. EKG Findings - EKG Results: EKG: interpreted by AMELIA (Atrial sensed ventricular paced rhythm of 83 AK interval 204 QRS duration 152 QT since QTC 414/46) Past Medical History Past Medical History: Atrial Fibrillation, Coronary Artery Disease (CAD), Cancer, Chest Pain / Angina, Diabetes Mellitus, GERD/Reflux, Hyperlipidemia, Hypertension, Osteoarthritis (OA), Sleep Apnea/CPAP/BIPAP, Thyroid Disorder Additional Past Medical History / Comment(s): skin cancer, restless leg syndrome, varicose veins, IBS, History of Any Multi-Drug Resistant Organisms: None Reported Past Surgical History: Adenoidectomy, Appendectomy, Breast Surgery, Cholecystectomy, Heart Catheterization With Stent, Hysterectomy, Orthopedic Surgery, Pacemaker, Tonsillectomy Additional Past Surgical History / Comment(s): walt cataract, 2 stents, partial thyroidectomy, rt shoulder rotator cuff, walt breast biopsy, metal clip in rt breast Past Anesthesia/Blood Transfusion Reactions: No Reported Reaction Date of Last Stent Placement:: 1998 Type of Cardiac Device: Permanent Pacemaker, Unknown Device Placement Date:: 2014 Past Psychological History: Anxiety, No Psychological Hx Reported Smoking Status: Former smoker Past Alcohol Use History: Occasional Past Drug Use History: None Reported - Past Family History Mother Additional Family Medical History / Comment(s): Mother at age 76 from massive stroke. Brother(s) Additional Family Medical History / Comment(s): The patient had a total of 3 brothers. One brother from melanoma. One brother is with history of coronary artery disease status post CABG. One brother has from colon cancer with history of coronary artery disease. Patient does not have any sisters. Daughter(s) Family Medical History: No Reported History (Healthy 1 daughter) Son(s) History Unknown: Yes (Healthy 3 sons) Additional Family Medical History / Comment(s): Patient has 3 sons and 1 daughter. One son has history of coronary artery disease, second son has history of AICD. Patient has 1 son and 1 daughter with no major medical problems. Father Additional Family Medical History / Comment(s): Father at age 59 from a myocardial infarction. General Exam - General Exam Comments Initial Comments: This is a well-developed well-nourished awake alert oriented 3 female Limitations: no limitations General appearance: alert, in no apparent distress Head exam: Present: atraumatic, normocephalic, normal inspection Eye exam: Present: normal appearance, PERRL, EOMI. Absent: scleral icterus, conjunctival injection, periorbital swelling ENT exam: Present: normal exam, mucous membranes moist Neck exam: Present: normal inspection. Absent: tenderness, meningismus, lymphadenopathy Respiratory exam: Present: normal lung sounds bilaterally, chest wall tenderness (Different than the chief complaint with tenderness over left costochondral margin and the pacer.). Absent: respiratory distress, wheezes, rales, rhonchi, stridor Cardiovascular Exam: Present: regular rate, normal rhythm, normal heart sounds. Absent: systolic murmur, diastolic murmur, rubs, gallop, clicks GI/Abdominal exam: Present: soft, normal bowel sounds. Absent: distended, tenderness, guarding, rebound, rigid Extremities exam: Present: normal inspection, full ROM, normal capillary refill. Absent: tenderness, pedal edema, joint swelling, calf tenderness Back exam: Present: normal inspection Neurological exam: Present: alert, oriented X3, CN II-XII intact Psychiatric exam: Present: normal affect, normal mood Skin exam: Present: warm, dry, intact, normal color. Absent: rash Course Vital Signs 01/16/19 01/16/19 01/16/19 21:39 21:53 22:00 Temperature 98.5 F Pulse Rate 89 82 Respiratory 20 16 Rate Blood Pressure 187/93 180/90 O2 Sat by Pulse 96 96 95 Oximetry 01/16/19 01/16/19 01/16/19 22:10 22:40 22:50 Temperature Pulse Rate 77 75 73 Respiratory 15 16 20 Rate Blood Pressure 148/82 136/77 121/73 O2 Sat by Pulse 94 L 95 Oximetry 01/16/19 01/16/19 23:10 23:20 Temperature Pulse Rate 72 70 Respiratory 10 L 11 L Rate Blood Pressure 128/74 122/71 O2 Sat by Pulse 94 L 94 L Oximetry - Reevaluation(s) Reevaluation #1: 01/17/19 01:12 Evaluation patient reveals no further chest pain Chest Pain MDM - MDM I did review the imaging and report no acute findings. Patient does states she pain is better with this is a worse episode that she's had. She is at 3 since she states she feels well may be plugged up. She will be admitted to Dr. Dolan for evaluation by cardiology Disposition Clinical Impression: Unstable angina pectoris Disposition: ADMITTED IP TO THIS [facility] Condition: Stable Referrals: Karlo Locke MD [Primary Care Provider] - 1-2 days
[2019-01-16 22:23] LABS: Basophils % (A) 1 %; Eosinophils # (A) 0.2 k/uL (0-0.7); Eosinophils % (A) 2 %; HCT 44.8 % (34.0-46.0); HGB 14.6 gm/dL (11.4-16.0); Lymphocytes # (A) 1.2 k/uL (1.0-4.8); Lymphocytes % (A) 17 %; MCH 30.6 pg (25.0-35.0); MCHC 32.5 g/dL (31.0-37.0); Mean Platelet Volume 7.3; Monocytes # (A) 0.8 k/uL (0-1.0); Monocytes % (A) 11 %; Neutrophils # (A) 4.8 k/uL (1.3-7.7); Neutrophils % (A) 67 %; Platelet Count 233 k/uL (150-450); RBC 4.77 m/uL (3.80-5.40); WBC 7.2 k/uL (3.8-10.6)
[2019-01-16 22:30] LABS: Albumin 3.8 g/dL (3.5-5.0); Calcium 9.7 mg/dL (8.4-10.2); INR 0.9 (<1.2); Partial Thromboplastin Time 22.8 sec (22.0-30.0); Potassium 4.4 mmol/L (3.5-5.1); Prothrombin Time 9.6 sec (9.0-12.0); Total Bilirubin 0.3 mg/dL (0.2-1.3); Total Protein 6.6 g/dL (6.3-8.2)
--- NOTE | 2019-01-16 22:33 | XR ---
EXAM: XR Chest, 2 Views CLINICAL HISTORY: ITS.REASON XR Reason: Chest Pain TECHNIQUE: Frontal and lateral views of the chest. COMPARISON: 01/13/19 x-ray IMPRESSION: There is again a small 2 cm opacity in the right lower lobe, which may represent infectious process, nodule, or nipple. This can be followed up with nipple markers or with a chest CT. Unchanged heart size. No pleural effusion.
[2019-01-16] MEDS ORDERED: SODIUM CHLORIDE 0.9% 500 ML 500 ML IV STA (23:36)
[2019-01-17] MEDS ORDERED: NITROGLYCERIN SL TABS 0.4 MG TAB SUBLINGUAL PRN (01:13)
[2019-01-17] MEDS ORDERED: NITROGLYCERIN OINT 1 INCH/GM PACKET TOPICAL SCH (06:00)
--- NOTE | 2019-01-17 08:22 | P.CRDCN ---
History of Present Illness Consult date: 01/17/19 History of present illness: This is a 88-year-old female with history of sick sinus syndrome and also coronary artery disease with multivessel angioplasty. She follows with Dr. Malou Noel at [facility]. She was admitted to this hospital about 4 days ago that his last Friday with complaints of chest pain and uncontrolled hypertension. She was treated with medications with control of symptoms. She was discharged home last . She felt good for 24-48 hours. She started having chest pain again yesterday afternoon. Patient took 3 nitroglycerin, Xanax, Imdur and other medications without improvement of symptoms. The symptoms lasted for about 5 hours. Patient came to the emergency room for further evaluation. Her EKG shows a paced rhythm. Her cardiac enzymes 2 are negative. Patient seemed to be pain free at this time and seemed to tolerating activity in the emergency room. Patient is walking in the hallways. Patient is advised to consider further evaluation because of recurrent chest pains with cardiac catheterization. She prefers to go to [facility]. Patient will monitor for the next 24 hours and if she remains stable she will be discharged home to have follow-up with her primary midwife. However, the patient has a recurrence of chest pain, patient may have to be transferred [facility] ,as per her request, for further evaluation. Review of Systems REVIEW OF SYSTEMS: CONSTITUTIONAL:. Patient is doing well. No complaints of fever or chills EYES: Denies diplopia, blurring of vision EARS, NOSE, MOUTH, THROAT: Denies headaches, denies sore throat. CARDIOVASCULAR: Denies chest pain, denies shortness of breath, denies palpitations RESPIRATORY: Denies shortness of breath, denies cough. GASTROINTESTINAL: Denies change in appetite, denies abdominal pain, denies diarrhea GENITOURINARY: Denies hematuria, denies infections. MUSKULOSKELETAL: Denies pain, denies swelling. Denies any cramps or claudication INTEGUMENTARY: Denies rash, denies eczema. NEUROLOGICAL: Denies focal weakness, or visual disturbance. Denies any dizziness or syncope PSYCHIATRIC: Denies anxiety, denies depression. HEMATOLOGIC/LYMPHATIC: Denies any bleeding, denies enlarged lymph nodes. Past Medical History Past Medical History: Atrial Fibrillation, Coronary Artery Disease (CAD), Cancer, Chest Pain / Angina, Diabetes Mellitus, GERD/Reflux, Hyperlipidemia, Hypertension, Osteoarthritis (OA), Sleep Apnea/CPAP/BIPAP, Thyroid Disorder Additional Past Medical History / Comment(s): skin cancer, restless leg syndrome, varicose veins, IBS, History of Any Multi-Drug Resistant Organisms: None Reported Past Surgical History: Adenoidectomy, Appendectomy, Breast Surgery, Cholecyste ctomy, Heart Catheterization With Stent, Hysterectomy, Orthopedic Surgery, Pacemaker, Tonsillectomy Additional Past Surgical History / Comment(s): walt cataract, 2 stents, partial thyroidectomy, rt shoulder rotator cuff, walt breast biopsy, metal clip in rt breast Past Anesthesia/Blood Transfusion Reactions: No Reported Reaction Date of Last Stent Placement:: 1998 Type of Cardiac Device: Permanent Pacemaker, Unknown Device Placement Date:: 2014 Past Psychological History: Anxiety, No Psychological Hx Reported Smoking Status: Former smoker Past Alcohol Use History: Occasional Past Drug Use History: None Reported - Past Family History Mother Additional Family Medical History / Comment(s): Mother at age 76 from massive stroke. Brother(s) Additional Family Medical History / Comment(s): The patient had a total of 3 brothers. One brother from melanoma. One brother is with history of coronary artery disease status post CABG. One brother has from colon cancer with history of coronary artery disease. Patient does not have any sisters. Daughter(s) Family Medical History: No Reported History (Healthy 1 daughter) Son(s) History Unknown: Yes (Healthy 3 sons) Additional Family Medical History / Comment(s): Patient has 3 sons and 1 daughter. One son has history of coronary artery disease, second son has history of AICD. Patient has 1 son and 1 daughter with no major medical problems. Father Additional Family Medical History / Comment(s): Father at age 59 from a myocardial infarction. Medications and Allergies Home Medications Medication Instructions Recorded Confirmed Type Nitroglycerin Sl Tabs [Nitrostat] 0.4 mg PO Q5M PRN 04/27/14 01/16/19 History Aspirin 81 mg PO DAILY 11/17/14 01/16/19 History Apixaban [Eliquis] 5 mg PO BID 04/19/17 01/16/19 History Ascorbic Acid [Vitamin C] 500 mg PO DAILY 04/19/17 01/16/19 History Cholecalciferol [Vitamin D3 (25 3,000 unit PO TID 04/19/17 01/16/19 History Mcg = 1000 Iu)] glipiZIDE XL [Glucotrol XL] 2.5 mg PO DAILY 04/19/17 01/16/19 History Levothyroxine Sodium [Synthroid] 75 mcg PO DAILY 05/26/17 01/16/19 History Clopidogrel [Plavix] 75 mg PO DAILY 10/17/18 01/16/19 History hydrALAZINE HCL [Apresoline] 100 mg PO TID 10/17/18 01/16/19 History Estradiol 0.05MG/24Hr Biwkptch 1 patch TRANSDERM MOFR 01/13/19 01/16/19 History [Vivelle-Dot 0.05 MG] Isosorbide Mononitrate ER [Imdur] 60 mg PO DAILY tab.er.24h 01/13/19 01/16/19 Rx Metoprolol Tartrate [Lopressor] 50 mg PO QID tab 01/13/19 01/16/19 Rx cloNIDine HCL [Catapres] 0.1 mg PO BID 01/13/19 01/16/19 History clonazePAM [KlonoPIN] 0.5 mg PO HS 01/13/19 01/16/19 History traMADol HCL [Ultram] 50 mg PO DAILY PRN 01/13/19 01/16/19 History Allergies Allergy/AdvReac Type Severity Reaction Status Date / Time JORGITO Inhibitors Allergy Severe Swelling Verified 01/16/19 21:50 cortisone AdvReac Severe Rash/Hives, Verified 01/16/19 21:50 high BP Calcium Channel Blocking AdvReac SORES IN Verified 01/16/19 21:50 Agent Dilt MOUTH dust,trees Allergy Unknown Uncoded 01/16/19 21:41 Physical Exam Vitals: Vital Signs Temp Pulse Resp BP Pulse Ox 01/17/19 07:23 98.5 F 64 18 175/87 95 01/17/19 05:10 60 20 87 L 01/17/19 03:50 61 19 149/76 94 L 01/17/19 01:40 63 18 111/54 94 L 01/17/19 01:30 60 17 104/50 94 L 01/17/19 01:20 60 17 104/50 94 L 01/17/19 01:10 60 17 97/50 92 L 01/17/19 00:50 60 17 101/52 93 L 01/17/19 00:40 59 L 16 121/59 94 L 01/17/19 00:20 61 29 H 125/60 94 L 01/17/19 00:10 63 22 118/56 94 L 01/16/19 23:50 63 20 116/57 92 L 01/16/19 23:40 67 23 130/71 93 L 01/16/19 23:30 69 24 122/71 93 L 01/16/19 23:20 70 11 L 122/71 94 L 01/16/19 23:10 72 10 L 128/74 94 L 01/16/19 22:50 73 20 121/73 95 01/16/19 22:40 75 16 136/77 94 L 01/16/19 22:10 77 15 148/82 01/16/19 22:00 82 16 180/90 95 01/16/19 21:53 96 01/16/19 21:39 98.5 F 89 20 187/93 96 Intake and Output 01/16/19 01/17/19 01/17/19 22:59 06:59 14:59 Other: Weight 83.915 kg GENERAL EXAM: Patient is alert and oriented and doesn't appear to be in any acute distress HEENT: Normocephalic. Normal reaction of pupils, equal size, normal range of extraocular motion. No erythema or exudates in the throat. NECK: No masses, no nuchal rigidity. CHEST: No chest wall deformity. LUNGS: Equal air entry with no crackles or wheeze. HEART: S1 and S2 normal with no audible mumurs or gallops. Regular rhythm, femorals equal on both sides.. ABDOMEN: No hepatosplenomegaly, normal bowel sounds, no guarding or rigidity. SKIN: No rashes CENTRAL NERVOUS SYSTEM: No focal deficits. EXTREMITIES: No cyanosis, clubbing or edema. Results 01/16/19 22:11 01/16/19 22:11 Cardiac Enzymes 01/16/19 01/16/19 01/17/19 Range/Units 22:11 22:11 02:50 AST 27 (14-36) U/L Troponin I <0.012 <0.012 (0.000-0.034) ng/mL Coagulation 01/16/19 Range/Units 22:11 PT 9.6 (9.0-12.0) sec APTT 22.8 (22.0-30.0) sec CBC 01/16/19 Range/Units 22:11 WBC 7.2 (3.8-10.6) k/uL RBC 4.77 (3.80-5.40) m/uL Hgb 14.6 (11.4-16.0) gm/dL Hct 44.8 (34.0-46.0) % Plt Count 233 (150-450) k/uL Comprehensive Metabolic Panel 01/16/19 Range/Units 22:11 Sodium 139 (137-145) mmol/L Potassium 4.4 (3.5-5.1) mmol/L Chloride 105 (98-107) mmol/L Carbon Dioxide 28 (22-30) mmol/L BUN 24 H (7-17) mg/dL Creatinine 0.80 (0.52-1.04) mg/dL Glucose 161 H (74-99) mg/dL Calcium 9.7 (8.4-10.2) mg/dL AST 27 (14-36) U/L ALT 21 (9-52) U/L Alkaline Phosphatase 68 (38-126) U/L Total Protein 6.6 (6.3-8.2) g/dL Albumin 3.8 (3.5-5.0) g/dL Current Medications Generic Name Dose Route Start Last Admin Trade Name Freq PRN Reason Stop Dose Admin Apixaban 5 mg 01/17/19 09:00 Eliquis PO BID [facility] Ascorbic Acid 500 mg 01/17/19 09:00 Vitamin C PO DAILY [facility] Aspirin 325 mg 01/18/19 09:00 Aspirin PO DAILY [facility] Cholecalciferol 3,000 unit 01/17/19 09:00 Vitamin D3 (25 Mcg = 1000 Iu) PO TID [facility] Clonazepam 0.5 mg 01/17/19 21:00 Klonopin PO HS [facility] Clonidine 0.1 mg 01/17/19 09:00 Catapres PO BID [facility] Clopidogrel Bisulfate 75 mg 01/17/19 09:00 Plavix PO DAILY [facility] Glipizide 2.5 mg 01/17/19 09:00 Glucotrol PO DAILY [facility] Hydralazine HCl 100 mg 01/17/19 09:00 Apresoline PO TID [facility] Sodium Chloride 1,000 mls @ 20 mls/hr 01/17/19 01:15 Saline 0.9% IV .Q24H [facility] Insulin Aspart 0 unit 01/17/19 07:30 Novolog SQ ACHS [facility] Protocol Isosorbide Mononitrate 60 mg 01/17/19 09:00 Imdur PO DAILY [facility] Levothyroxine Sodium 75 mcg 01/17/19 06:30 Synthroid PO DAILY@0630 [facility] Estradiol 0.05mg/ 1 patch 01/18/19 01:17 24hr Biwkptch 1 TRANSDERM Patch MOFR [facility] Tramadol HCl 50 mg 01/17/19 01:17 Ultram PO DAILY PRN Pain Intake and Output 01/16/19 01/17/19 01/17/19 22:59 06:59 14:59 Other: Weight 83.915 kg 01/16/19 22:11 01/16/19 22:11 EKG Interpretations (text) Showed pacemaker rhythm Assessment and Plan (1) Recurrent chest pain Current Visit: Yes Status: Acute Code(s): R07.9 - CHEST PAIN, UNSPECIFIED SNOMED Code(s): 49547272 (2) Coronary artery disease Current Visit: Yes Status: Acute Code(s): I25.10 - ATHSCL HEART DISEASE OF [place] CORONARY ARTERY W/O ANG PCTRS SNOMED Code(s): 38853842 (3) History of permanent cardiac pacemaker placement Current Visit: Yes Status: Acute Code(s): Z95.0 - PRESENCE OF CARDIAC PA CEMAKER SNOMED Code(s): 368969083 (4) Labile hypertension Current Visit: Yes Status: Acute Code(s): R09.89 - OTH SYMPTOMS AND SIGNS INVOLVING THE CIRC AND RESP SYSTEMS SNOMED Code(s): 785242451 Plan: This patient is admitted with prolonged chest pain. Cardiac enzymes have been negative. EKGs are nondiagnostic. Patient may need further evaluation with cardiac catheterization. Patient prefers to go to [facility]. He patient remains stable for the next 24 hours, she could be discharged home to see her midwife as an outpatient. If she has any recurrence of chest pain, patient may have to be transferred to [facility].
[2019-01-17] MEDS: APIXABAN 5 MG TAB PO SCH ×2 (09:48→21:25)
[2019-01-17] MEDS: hydrALAZINE HCL 25 MG TAB PO SCH ×3 (09:49→21:25)
[2019-01-17] MEDS: cloNIDine HCL 0.1 MG TAB PO SCH ×2 (09:50→21:25)
[2019-01-17] MEDS: CHOLECALCIFEROL 1,000 UNIT TAB PO SCH ×3 (09:51→21:25)
[2019-01-17] MEDS: CLOPIDOGREL 75 MG TAB PO SCH (09:52)
[2019-01-17] MEDS: ASCORBIC ACID 500 MG TAB PO SCH (10:40)
[2019-01-17] MEDS: LEVOTHYROXINE 75 MCG TAB PO SCH (10:40)
--- NOTE | 2019-01-17 11:18 | P.HPIM ---
History of Present Illness H&P Date: 01/17/19 Chief Complaint: chest pain this is 88 years female with history of atrial fibrillation and pacemaker placement presented to the emergency department with new onset chest pain and uncontrolled high blood pressure. Patient was hospitalized last week for the same reason and was discharged home to follow-up with her primary care physician and primary financial compliance manager at [facility] but patient experienced worsening in her chest pain and decided to come into the emergency department. Patient described the pain as tightness located to the mediastinum without radiation to the left hand or left neck associated with some nausea but no vomiting denied any day pheresis or shortness breath with activities patient to try to take nitroglycerin sublingual 3 times with minimum relief and patient decided to come into the emergency. In the ER her troponin were negative EKG showed no significant ST or T-wave abnormality and patient was kept for observation with cardiology consult in place. Patient is denying currently chest pain, shortness breath, nausea, vomiting, dumping, dizziness, lightheadedness or blurry vision. Patient is denying any recent upper respiratory infection. Patient stated that she is competent with her medication and trying to limit her salt in diet. Patient is denying tobacco alcohol or drug abuse Review of Systems All 14 systems reviewed and negative except as above Past Medical History Past Medical History: Atrial Fibrillation, Coronary Artery Disease (CAD), Cancer, Chest Pain / Angina, Diabetes Mellitus, GERD/Reflux, Hyperlipidemia, Hypertension, Osteoarthritis (OA), Sleep Apnea/CPAP/BIPAP, Thyroid Disorder Additional Past Medical History / Comment(s): skin cancer, restless leg syndrome, varicose veins, IBS, History of Any Multi-Drug Resistant Organisms: None Reported Past Surgical History: Adenoidectomy, Appendectomy, Breast Surgery, Cholecystectomy, Heart Catheterization With Stent, Hysterectomy, Orthopedic Surgery, Pacemaker, Tonsillectomy Additional Past Surgical History / Comment(s): walt cataract, 2 stents, partial thyroidectomy, rt shoulder rotator cuff, walt breast biopsy, metal clip in rt breast Past Anesthesia/Blood Transfusion Reactions: No Reported Reaction Date of Last Stent Placement:: 1998 Type of Cardiac Device: Permanent Pacemaker, Unknown Device Placement Date:: 2014 Past Psychological History: Anxiety, No Psychological Hx Reported Smoking Status: Former smoker Past Alcohol Use History: Occasional Past Drug Use History: None Reported - Past Family History Mother Additional Family Medical History / Comment(s): Mother at age 76 from massive stroke. Brother(s) Additional Family Medical History / Comment(s): The patient had a total of 3 brothers. One brother from melanoma. One brother is with history of coronary artery disease status post CABG. One brother has from colon cancer with history of coronary artery disease. Patient does not have any sisters. Daughter(s) Family Medical History: No Reported History (Healthy 1 daughter) Son(s) History Unknown: Yes (Healthy 3 sons) Additional Family Medical History / Comment(s): Patient has 3 sons and 1 daughter. One son has history of coronary artery disease, second son has histo ry of AICD. Patient has 1 son and 1 daughter with no major medical problems. Father Additional Family Medical History / Comment(s): Father at age 59 from a myocardial infarction. Medications and Allergies Home Medications Medication Instructions Recorded Confirmed Type Nitroglycerin Sl Tabs [Nitrostat] 0.4 mg PO Q5M PRN 04/27/14 01/16/19 History Aspirin 81 mg PO DAILY 11/17/14 01/16/19 History Apixaban [Eliquis] 5 mg PO BID 04/19/17 01/16/19 History Ascorbic Acid [Vitamin C] 500 mg PO DAILY 04/19/17 01/16/19 History Cholecalciferol [Vitamin D3 (25 3,000 unit PO TID 04/19/17 01/16/19 History Mcg = 1000 Iu)] glipiZIDE XL [Glucotrol XL] 2.5 mg PO DAILY 04/19/17 01/16/19 History Levothyroxine Sodium [Synthroid] 75 mcg PO DAILY 05/26/17 01/16/19 History Clopidogrel [Plavix] 75 mg PO DAILY 10/17/18 01/16/19 History hydrALAZINE HCL [Apresoline] 100 mg PO TID 10/17/18 01/16/19 History Estradiol 0.05MG/24Hr Biwkptch 1 patch TRANSDERM MOFR 01/13/19 01/16/19 History [Vivelle-Dot 0.05 MG] Isosorbide Mononitrate ER [Imdur] 60 mg PO DAILY tab.er.24h 01/13/19 01/16/19 Rx Metoprolol Tartrate [Lopressor] 50 mg PO QID tab 01/13/19 01/16/19 Rx cloNIDine HCL [Catapres] 0.1 mg PO BID 01/13/19 01/16/19 History clonazePAM [KlonoPIN] 0.5 mg PO HS 01/13/19 01/16/19 History traMADol HCL [Ultram] 50 mg PO DAILY PRN 01/13/19 01/16/19 History Allergies Allergy/AdvReac Type Severity Reaction Status Date / Time JORGITO Inhibitors Allergy Severe Swelling Verified 01/16/19 21:50 cortisone AdvReac Severe Rash/Hives, Verified 01/16/19 21:50 high BP Calcium Channel Blocking AdvReac SORES IN Verified 01/16/19 21:50 Agent Dilt MOUTH dust,trees Allergy Unknown Uncoded 01/16/19 21:41 Physical Exam Vitals: Vital Signs Temp Pulse Resp BP Pulse Ox 01/17/19 10:44 85 16 125/78 01/17/19 09:45 77 16 193/110 98 01/17/19 07:23 98.5 F 64 18 175/87 95 01/17/19 05:10 60 20 87 L 01/17/19 03:50 61 19 149/76 94 L 01/17/19 01:40 63 18 111/54 94 L 01/17/19 01:30 60 17 104/50 94 L 01/17/19 01:20 60 17 104/50 94 L 01/17/19 01:10 60 17 97/50 92 L 01/17/19 00:50 60 17 101/52 93 L 01/17/19 00:40 59 L 16 121/59 94 L 01/17/19 00:20 61 29 H 125/60 94 L 01/17/19 00:10 63 22 118/56 94 L 01/16/19 23:50 63 20 116/57 92 L 01/16/19 23:40 67 23 130/71 93 L 01/16/19 23:30 69 24 122/71 93 L 01/16/19 23:20 70 11 L 122/71 94 L 01/16/19 23:10 72 10 L 128/74 94 L 01/16/19 22:50 73 20 121/73 95 01/16/19 22:40 75 16 136/77 94 L 01/16/19 22:10 77 15 148/82 01/16/19 22:00 82 16 180/90 95 01/16/19 21:53 96 01/16/19 21:39 98.5 F 89 20 187/93 96 Intake and Output 01/16/19 01/17/19 01/17/19 22:59 06:59 14:59 Other: Weight 83.915 kg Gen.: in stated age, no acute distress Heart: Normal S1-S2 Lungs: Clear to auscultation bilaterally Abdomen: Soft, no tenderness, positive bowel sounds in all 4 quadrant no guarding or rebound Skin: No new rash Psych: Alert and oriented 3 Neuro: No focal deficit Results CBC & Chem 7: 01/16/19 22:11 01/16/19 22:11 Labs: Abnormal Lab Results - Last 24 Hours (Table) 01/16/19 Range/Units 22:11 BUN 24 H (7-17) mg/dL Glucose 161 H (74-99) mg/dL Assessment and Plan Plan: 1. Recurrent chest pain. Etiology felt to be multifactorial including her history of coronary artery disease with possible small vessel ischemia on the top of malignant hypertension. Patient seems to be pain free at this point I would like to optimize her risk factors I would like to reintroduce her home medication and titrate her blood pressure medication for goal less than 140/90 I would like to follow-up with cardiology recommendation regarding her current management as patient refused any procedures to be done in this hospital and she would like to follow-up with her primary financial compliance manager at [facility] a shunt will be transferred to [place] if any procedure is indicated at this poin t but if patient's continued to be chest pain-free would optimize her medical management and discharge patient to follow-up outpatient for possible cardiac catheterization in the future. We'll continue cardioprotective medication including aspirin and statin and Plavix and monitor vital signs closely. 2. Hypertensive urgency/emergency. Seems to be improving after administering medication in the emergency department would like to lower the blood pressure slowly and gradually and titrate her blood pressure medication for better control on outpatient basis per her primary care physician. 3. Atrial fibrillation. Heart rate is controlled we will would like to continue heart rate controlling agents and continue with factor X inhibitors for anticoagulation. 4. Hyperlipidemia. Continue statin. 5. Diabetes mellitus type 2 will continue glipizide and placed patient's on insulin sliding scale during this hospital stay. 6. Osteoarthritis. Tylenol on when necessary basis. 7. Obstructive sleep apnea continue with CPAP setting. Discharge planning based on clinical progress
[2019-01-17] MEDS: traMADol 50 MG TAB PO PRN (12:26)
[2019-01-17 13:04] LABS: Glucose,Whole Blood 124 mg/dL (75-99)
[2019-01-17] MEDS: INSULIN ASPART (NovoLOG) 100 UNIT/ML VIAL SQ SCH ×3 (13:32→21:35)
[2019-01-17] MEDS: SODIUM CHLORIDE 0.9% 1,000 ML IV SCH ×2 (13:36→23:34)
[2019-01-17] MEDS: ISOSORBIDE MONONITRATE ER 60 MG TAB.ER.24H PO SCH (13:51)
[2019-01-17 16:58] LABS: Glucose,Whole Blood 73 mg/dL (75-99)
[2019-01-17] MEDS ORDERED: ACETAMINOPHEN TAB 325 MG TAB PO PRN (17:40)
[2019-01-17] MEDS ORDERED: clonazePAM 0.5 MG TAB PO SCH (21:00)
[2019-01-17 21:45] LABS: Glucose,Whole Blood 135 mg/dL (75-99)
[2019-01-17 23:21] LABS: Cholesterol 173 mg/dL (<200); HDL Cholesterol 47 mg/dL (40-60); LDL Cholesterol,Calculated 86 mg/dL (0-99); Triglycerides 200 mg/dL (<150)
[2019-01-17] MEDS ORDERED: LOPERAMIDE 2 MG CAP PO PRN (23:43)
[2019-01-18] MEDS ORDERED: ESTRADIOL 0.05 MG/24 HR TRANSDERM SCH (01:17)
[2019-01-18] MEDS: traMADol 50 MG TAB PO PRN (03:20)
[2019-01-18] MEDS: LEVOTHYROXINE 75 MCG TAB PO SCH (06:16)
[2019-01-18 07:57] VITALS: RESP 18
[2019-01-18] MEDS: INSULIN ASPART (NovoLOG) 100 UNIT/ML VIAL SQ SCH ×2 (08:08→13:29)
[2019-01-18] MEDS: cloNIDine HCL 0.1 MG TAB PO SCH (08:32)
[2019-01-18] MEDS: CHOLECALCIFEROL 1,000 UNIT TAB PO SCH (08:32)
[2019-01-18] MEDS: CLOPIDOGREL 75 MG TAB PO SCH (08:32)
[2019-01-18] MEDS: hydrALAZINE HCL 25 MG TAB PO SCH (08:32)
[2019-01-18] MEDS: APIXABAN 5 MG TAB PO SCH (08:32)
[2019-01-18] MEDS: ISOSORBIDE MONONITRATE ER 60 MG TAB.ER.24H PO SCH (08:35)
[2019-01-18] MEDS: ASCORBIC ACID 500 MG TAB PO SCH (08:35)
[2019-01-18] MEDS ORDERED: ASPIRIN 325 MG TAB PO SCH (09:00)
--- NOTE | 2019-01-18 10:29 | P.PN ---
Subjective This is a pleasant 88-year-old female past medical history significant for paroxysmal atrial fibrillation on long-term anticoagulation, coronary artery disease status post stent placement most recently in April 2018, hypertension, diabetes mellitus, obstructive sleep apnea and sick sinus syndrome status post permanent pacemaker implantation. She follows with Dr. Glaser out of [place]. She was seen and examined resting comfortably laying flat in bed in no acute distress. She states she has had no further symptoms of chest di scomfort the previous 24 hours. She also denies any significant shortness of breath, dizziness, palpitations, nausea, vomiting or diaphoresis. She has been advised to undergo cardiac catheterization however she would like to have this time with her primary hvac commercial salesperson. Blood pressure 160/74 heart rate 73 afebrile maintaining oxygen saturation on room air. Currently maintained on Eliquis 5 mg twice a day, aspirin 325 mg daily, clonidine 0.1 mg by mouth twice a day, Plavix 75 mg daily, hydralazine 100 mg 3 times a day, Imdur 60 mg daily. GENERAL: Well-appearing, well-nourished and in no acute distress. NECK: Supple without JVD or thyromegaly. LUNGS: Breath sounds clear to auscultation bilaterally. Respiration equal and unlabored. No wheezes, rales or rhonchi. HEART: Regular rate and rhythm without murmurs, rubs or gallops. S1 and S2 heard. EXTREMITIES: Normal range of motion, no edema. No clubbing or cyanosis. Peripheral pulses intact. ASSESSMENT Chest pain, recurrent and relieved with nitroglycerin. An acute event has been ruled out. Currently chest pain free. History of coronary artery disease s/p recent stent placement in April 2018 maintained on eliquis, plavix and aspirin. Hypertension Permanent pacemaker implantation Paroxysmal atrial fibrillation on retirement anticoagulation. Diabetes mellitus PLAN No active chest pain. Pt prefers to go home and see her primary hvac commercial salesperson. With no further symptoms of chest pain and no troponin elevation this is reasona ble. Risks have been explained to her. Recommend she get an appointment to see her hvac commercial salesperson this week. We will call and set this up. Nurse Practitioner note has been reviewed, I agree with a documented findings and plan of care. Patient was seen and examined. Objective - Vital Signs Vital signs: Vital Signs Temp 97.8 F 01/18/19 07:05 Pulse 73 01/18/19 08:00 Resp 18 01/18/19 08:00 BP 168/74 01/18/19 07:05 Pulse Ox 95 01/18/19 07:05 Intake & Output 01/17/19 01/18/19 01/18/19 18:59 06:59 18:59 Intake Total 300 590 240 Balance 300 590 240 Intake: IV 30 Invasive Line 1 30 Intake, IV Titration 80 Amount Sodium Chloride 0.9% 1, 80 000 ml @ 20 mls/hr IV . Q24H DULCE Rx#:[id number] Oral 300 480 240 Other: Voiding Method Toilet Toilet Toilet # Voids 1 3 - Labs CBC & Chem 7: 01/16/19 22:11 01/16/19 22:11 Labs: Abnormal Lab Results - Last 24 Hours (Table) 01/16/19 01/17/19 01/17/19 Range/Units 22:11 12:55 16:44 POC Glucose (mg/dL) 124 H 73 L (75-99) mg/dL Triglycerides 200 H (<150) mg/dL 01/17/19 Range/Units 21:34 POC Glucose (mg/dL) 135 H (75-99) mg/dL Triglycerides (<150) mg/dL
[2019-01-18 11:30] VITALS: BP 146/71; PULSE 83; TEMP 97.7
[2019-01-18 11:51] LABS: Glucose,Whole Blood 95 mg/dL (75-99)
--- NOTE | 2019-01-18 12:40 | P.DS ---
Providers Date of admission: 01/17/19 01:14 Expected date of discharge: 01/18/19 Attending physician: Fredo Dolan Consults: 01/17/19 01:14 Consult Physician Urgent Consulting Provider: Shivam Dai Consult Reason/Comments: Unstable angina Do you want consulting provider notified?: Yes, Notify in am Primary care physician: [facility] Course: this is 88 years female with history of atrial fibrillation and pacemaker placement presented to the emergency department with new onset chest pain and uncontrolled high blood pressure. Patient was hospitalized last week for the same reason and was discharged home to follow-up with her primary care physician and primary programmer operator numerical control at [facility] but patient experienced worsening in her chest pain and decided to come into the emergency department. Patient described the pain as tightness located to the mediastinum without radiation to the left hand or left neck associated with some nausea but no vomiting denied any day pheresis or shortness breath with activities patient to try to take nitroglycerin sublingual 3 times with minimum relief and patient decided to come into the emergency. In the ER her troponin were negative EKG showed no significant ST or T-wave abnormality and patient was kept for observation with cardiology consult in place. Patient is denying currently chest pain, shortness breath, nausea, vomiting, dumping, dizziness, lightheadedness or blurry vision. Patient is denying any recent upper respiratory infection. Patient stated that she is competent with her medication and trying to limit her salt in diet. Patient is denying tobacco alcohol or drug abuse 01/18: The patient has been evaluated by cardiology. Troponins have been negative. Patient has no active chest pain. Acute coronary syndrome has been ruled out by cardiology. Patient has been instructed to follow up with her primary programmer operator numerical control this week. Patient does relate that she thinks her nitroglycerin is old at home and we will send her a new prescription with one refill. Patient will be discharged home today in stable condition. Discharge diagnoses: 1. Recurrent chest pain. Etiology felt to be multifactorial including her history of coronary artery disease with possible small vessel ischemia on the top of malignant hypertension. 2. Hypertensive emergency. 3. Paroxysmal Atrial fibrillation. 4. Hyperlipidemia. 5. Diabetes mellitus type 2 6. Osteoarthritis, generalized. 7. Obstructive sleep apnea continue with CPAP setting. Discharge plan: Home Impression and plan of care have been directed as dictated by the signing physician. Tereza Arnett nurse practitioner acting as scribe for signing physician. Patient Condition at Discharge: Good Plan - Discharge Summary Discharge Rx Participant: No New Discharge Prescriptions: Continue Cholecalciferol [Vitamin D3 (25 Mcg = 1000 Iu)] 3,000 unit PO TID Ascorbic Acid [Vitamin C] 500 mg PO DAILY glipiZIDE XL [Glucotrol XL] 2.5 mg PO DAILY Apixaban [Eliquis] 5 mg PO BID Levothyroxine Sodium [Synthroid] 75 mcg PO DAILY Clopidogrel [Plavix] 75 mg PO DAILY hydrALAZINE HCL [Apresoline] 100 mg PO TID traMADol HCL [Ultram] 50 mg PO DAILY PRN PRN Reason: Pain cloNIDine HCL [Catapres] 0.1 mg PO BID clonazePAM [KlonoPIN] 0.5 mg PO HS Estradiol 0.05MG/24Hr Biwkptch [Vivelle-Dot 0.05 MG] 1 patch TRANSDERM MOFR Isosorbide Mononitrate ER [Imdur] 60 mg PO DAILY tab.er.24h Metoprolol Tartrate [Lopressor] 50 mg PO QID tab Nitroglycerin Sl Tabs [Nitrostat] 0.4 mg PO Q5M PRN #25 tab PRN Reason: Chest Pain Discontinued Aspirin 81 mg PO DAILY Discharge Medication List Apixaban [Eliquis] 5 mg PO BID 04/19/17 [History] Ascorbic Acid [Vitamin C] 500 mg PO DAILY 04/19/17 [History] Cholecalciferol [Vitamin D3 (25 Mcg = 1000 Iu)] 3,000 unit PO TID 04/19/17 [History] glipiZIDE XL [Glucotrol XL] 2.5 mg PO DAILY 04/19/17 [History] Levothyroxine Sodium [Synthroid] 75 mcg PO DAILY 05/26/17 [History] Clopidogrel [Plavix] 75 mg PO DAILY 10/17/18 [History] hydrALAZINE HCL [Apresoline] 100 mg PO TID 10/17/18 [History] Estradiol 0.05MG/24Hr Biwkptch [Vivelle-Dot 0.05 MG] 1 patch TRANSDERM MOFR 01/13/19 [History] Isosorbide Mononitrate ER [Imdur] 60 mg PO DAILY tab.er.24h 01/13/19 [Rx] Metoprolol Tartrate [Lopressor] 50 mg PO QID tab 01/13/19 [Rx] cloNIDine HCL [Catapres] 0.1 mg PO BID 01/13/19 [History] clonazePAM [KlonoPIN] 0.5 mg PO HS 01/13/19 [History] traMADol HCL [Ultram] 50 mg PO DAILY PRN 01/13/19 [History] Nitroglycerin Sl Tabs [Nitrostat] 0.4 mg PO Q5M PRN #25 tab 01/18/19 [Rx] Follow up Appointment(s)/Referral(s): Malou Glaser MD [REFERRING] - 01/25/19 3:30 pm Karlo Locke MD [Primary Care Provider] - 1 Week Discharge Disposition: HOME SELF-CARE
== END 2019-01-18 13:30 | disposition home or self-care (01) ==
LOC: EC 21:31 → 1SOBS 01-17 01:14
PROVIDERS: ADMIT Internal Medicine; ATTEND Internal Medicine
DX: R07.9 Chest pain, unspecified (principal); R11.0 Nausea; I25.10 Atherosclerotic heart disease of native coronary artery without angina pectoris; I16.1 Hypertensive emergency; I48.0 Paroxysmal atrial fibrillation; E78.5 Hyperlipidemia, unspecified; E11.9 Type 2 diabetes mellitus without complications; G47.33 Obstructive sleep apnea (adult) (pediatric); Z99.89 Dependence on other enabling machines and devices; M15.9 Polyosteoarthritis, unspecified; Z95.0 Presence of cardiac pacemaker; Z90.49 Acquired absence of other specified parts of digestive tract; F41.9 Anxiety disorder, unspecified; I10 Essential (primary) hypertension; I16.0 Hypertensive urgency; E89.0 Postprocedural hypothyroidism; Z95.5 Presence of coronary angioplasty implant and graft; Z85.828 Personal history of other malignant neoplasm of skin; Z87.891 Personal history of nicotine dependence; Z79.82 Long term (current) use of aspirin; Z79.01 Long term (current) use of anticoagulants; Z79.84 Long term (current) use of oral hypoglycemic drugs; Z79.890 Hormone replacement therapy; Z79.02 Long term (current) use of antithrombotics/antiplatelets; Z79.899 Other long term (current) drug therapy; Z79.891 Long term (current) use of opiate analgesic; Z88.8 Allergy status to other drugs, medicaments and biological substances; Z91.048 Other nonmedicinal substance allergy status; Z82.3 Family history of stroke; Z80.0 Family history of malignant neoplasm of digestive organs; Z82.49 Family history of ischemic heart disease and other diseases of the circulatory system; Z80.8 Family history of malignant neoplasm of other organs or systems
CPT/HCPCS: 36415; 71046; 80053; 80061; 83690; 83735; 84484; 85025; 85610; 85730; 93005; 96360; 96361; 99285

== ENCOUNTER 2019-05-09 13:07 | Emergency (ER) | payer MEDICARE ==
[2019-05-09 13:37] VITALS: TEMP 98.5
[2019-05-09] MEDS ORDERED: methylPREDNISolone SOD SUCCI 125 MG/2 ML VIAL IV STA (14:24)
--- NOTE | 2019-05-09 14:42 | ED ---
General Adult HPI - General Chief complaint: Allergic Reaction Stated complaint: Lips swelling/allergic reaction Time Seen by Provider: 05/09/19 14:05 Source: patient, RN notes reviewed Mode of arrival: wheelchair Limitations: no limitations - History of Present Illness Initial comments: Patient is a pleasant 89-year-old female presenting to the emergency Department with complaints of lip swelling. Patient had some swelling of her tongue yesterday that resolved with Benadryl. Patient this morning had some swelling of her lip. Patient again took Benadryl with near resolution of symptoms. No dyspnea. No throat swelling. Patient did have similar symptoms previously associated with Ray inhibitors. Patient questions if her could be causing her symptoms. - Related Data Home Medications Medication Instructions Recorded Confirmed Apixaban [Eliquis] 5 mg PO BID 04/19/17 05/09/19 Ascorbic Acid [Vitamin C] 500 mg PO DAILY 04/19/17 05/09/19 Cholecalciferol [Vitamin D3 (25 3,000 unit PO TID 04/19/17 05/09/19 Mcg = 1000 Iu)] glipiZIDE XL [Glucotrol XL] 2.5 mg PO DAILY 04/19/17 05/09/19 Levothyroxine Sodium [Synthroid] 75 mcg PO DAILY 05/26/17 05/09/19 Clopidogrel [Plavix] 75 mg PO DAILY 10/17/18 05/09/19 hydrALAZINE HCL [Apresoline] 100 mg PO TID 10/17/18 05/09/19 Estradiol 0.05MG/24Hr Biwkptch 1 patch TRANSDERM SUWE 01/13/19 05/09/19 [Vivelle-Dot 0.05 MG] cloNIDine HCL [Catapres] 0.1 mg PO BID PRN 01/13/19 05/09/19 traMADol HCL [Ultram] 50 mg PO DAILY PRN 01/13/19 05/09/19 Aspirin EC [Ecotrin Low Dose] 81 mg PO DAILY 05/09/19 05/09/19 Atorvastatin [Lipitor] 20 mg PO HS 05/09/19 05/09/19 Isosorbide Mononitrate ER [Imdur] 90 mg PO HS 05/09/19 05/09/19 Melatonin 10 mg PO HS 05/09/19 05/09/19 Spironolactone [Aldactone] 25 mg PO DAILY PRN 05/09/19 05/09/19 cloNIDine 0.1 MG/24HR PATCH 1 patch TRANSDERM Q7D 05/09/19 05/09/19 [Catapres-TTS] diphenhydrAMINE [Benadryl] 25 - 50 mg PO DAILY PRN 05/09/19 05/09/19 Previous Rx's Medication Instructions Recorded Isosorbide Mononitrate ER [Imdur] 60 mg PO DAILY tab.er.24h 01/13/19 Metoprolol Tartrate [Lopressor] 50 mg PO QID tab 01/13/19 Nitroglycerin Sl Tabs [Nitrostat] 0.4 mg PO Q5M PRN #25 tab 01/18/19 predniSONE 20 mg PO BID #10 tab 05/09/19 Allergies Allergy/AdvReac Type Severity Reaction Status Date / Time RAY Inhibitors Allergy Severe Swelling Verified 05/09/19 14:28 cortisone AdvReac Severe Rash/Hives, Verified 05/09/19 14:28 high BP Calcium Channel Blocking AdvReac SORES IN Verified 05/09/19 14:28 Agent Dilt MOUTH dust,trees Allergy Unknown Uncoded 01/16/19 21:41 Review of Systems ROS Statement: Those systems with pertinent positive or pertinent negative responses have been documented in the HPI. ROS Other: All systems not noted in ROS Statement are negative. Constitutional: Denies: fever Eyes: Denies: eye pain ENT: Denies: ear pain Respiratory: Denies: cough, dyspnea Cardiovascular: Denies: chest pain Endocrine: Denies: fatigue Gastrointestinal: Denies: abdominal pain Genitourinary: Denies: dysuria Musculoskeletal: Denies: back pain Skin: Denies: rash Neurological: Denies: weakness Past Medical History Past Medical History: Atrial Fibrillation, Coronary Artery Disease (CAD), Cancer, Chest Pain / Angina, Diabetes Mellitus, GERD/Reflux, Hyperlipidemia, Hypertension, Osteoarthritis (OA), Sleep Apnea/CPAP/BIPAP, Thyroid Disorder Additional Past Medical History / Comment(s): skin cancer, restless leg syndrome, varicose veins, IBS, History of Any Multi-Drug Resistant Organisms: None Reported Past Surgical History: Adenoidectomy, Appendectomy, Breast Surgery, Cholecystectomy, Heart Catheterization With Stent, Hysterectomy, Orthopedic Surgery, Pacemaker, Tonsillectomy Additional Past Surgical History / Comment(s): walt cataract, 2 stents, partial thyroidectomy, rt shoulder rotator cuff, walt breast biopsy, metal clip in rt breast Past Anesthesia/Blood Transfusion Reactions: No Reported Reaction Date of Last Stent Placement:: 1998 Type of Cardiac Device: Permanent Pacemaker, Unknown Device Placement Date:: 2014 Past Psychological History: Anxiety, No Psychological Hx Reported Smoking Status: Former smoker Past Alcohol Use History: Occasional Past Drug Use History: None Reported - Past Family History Mother Additional Family Medical History / Comment(s): Mother at age 76 from massive stroke. Brother(s) Additional Family Medical History / Comment(s): The patient had a total of 3 brothers. One brother from melanoma. One brother is with history of coronary artery disease status post CABG. One brother has from colon cancer with history of coronary artery disease. Patient does not have any sisters. Daughter(s) Family Medical History: No Reported History (Healthy 1 daughter) Son(s) History Unknown: Yes (Healthy 3 sons) Additional Family Medical History / Comment(s): Patient has 3 sons and 1 daughter. One son has history of coronary artery disease, second son has history of AICD. Patient has 1 son and 1 daughter with no major medical problems. Father Additional Family Medical History / Comment(s): Father at age 59 from a myocardial infarction. General Exam Limitations: no limitations General appearance: alert, in no apparent distress Head exam: Present: normocephalic Eye exam: Present: normal appearance, PERRL ENT exam: Present: other (Trace amount of swelling to the lower lip exteriorly. No angioedema of the tongue or throat or eyes.) Neck exam: Present: normal inspection Respiratory exam: Present: normal lung sounds bilaterally. Absent: respiratory distress, wheezes Cardiovascular Exam: Present: regular rate, normal rhythm GI/Abdominal exam: Present: soft. Absent: tenderness Extremities exam: Present: normal inspection Neurological exam: Present: alert Psychiatric exam: Present: normal affect, normal mood Skin exam: Present: normal color Course Vital Signs 05/09/19 05/09/19 05/09/19 13:32 13:37 14:07 Temperature 98.5 F Pulse Rate 80 Respiratory 16 18 Rate Blood Pressure 190/90 Disposition Clinical Impression: Angioedema Disposition: HOME SELF-CARE Condition: Stable Instructions (If sedation given, give patient instructions): Angioedema (ED) Additional Instructions: Please follow-up with primary care physician tomorrow for recheck. Prescription for steroids. Continue with [id number] Benadryl. Return for difficulty breathing, swelling of the throat or tongue, increased swelling of the lips, worsening symptoms or other concerns. Hold metoprolol until follow-up with your doctor. Prescriptions: predniSONE 20 mg PO BID #10 tab Is patient prescribed a controlled substance at d/c from ED?: No Referrals: Karlo Locke MD [Primary Care Provider] - 1-2 days Time of Disposition: 14:41
[2019-05-09 14:54] VITALS: BP 178/88; PULSE 87; RESP 16
[2019-05-09] MEDS ORDERED: cloNIDine 0.1 MG/24HR PATCH TRANSDERM SCH (15:00)
== END 2019-05-09 15:13 | disposition home or self-care (01) ==
LOC: EC 13:07
DX: T78.3XXA Angioneurotic edema, initial encounter (principal); I48.91 Unspecified atrial fibrillation; I25.119 Atherosclerotic heart disease of native coronary artery with unspecified angina pectoris; E11.9 Type 2 diabetes mellitus without complications; K21.9 Gastro-esophageal reflux disease without esophagitis; E78.5 Hyperlipidemia, unspecified; F41.9 Anxiety disorder, unspecified; I10 Essential (primary) hypertension; M19.90 Unspecified osteoarthritis, unspecified site; E07.9 Disorder of thyroid, unspecified; K58.9 Irritable bowel syndrome, unspecified; G47.30 Sleep apnea, unspecified; Z79.02 Long term (current) use of antithrombotics/antiplatelets; Z79.84 Long term (current) use of oral hypoglycemic drugs; Z79.82 Long term (current) use of aspirin; Z79.899 Other long term (current) drug therapy; Z79.890 Hormone replacement therapy; Z87.891 Personal history of nicotine dependence; Z88.8 Allergy status to other drugs, medicaments and biological substances; Z91.048 Other nonmedicinal substance allergy status; Z99.89 Dependence on other enabling machines and devices; Z85.828 Personal history of other malignant neoplasm of skin; Z95.5 Presence of coronary angioplasty implant and graft
CPT/HCPCS: 99283; 96374; J2930

== ENCOUNTER 2019-05-11 11:56 | Inpatient (IN) | payer MEDICARE ==
[2019-05-11] MEDS ORDERED: NITROGLYCERIN OINT 1 INCH/GM PACKET TOPICAL STA (12:35)
[2019-05-11] MEDS ORDERED: ASPIRIN 81 MG PO STA (12:35)
--- NOTE | 2019-05-11 12:39 | ED ---
General Adult HPI - General Chief complaint: Chest Pain Stated complaint: CHEST PAIN Time Seen by Provider: 05/11/19 12:05 Source: patient, EMS, RN notes reviewed Mode of arrival: EMS Limitations: no limitations - History of Present Illness Initial comments: This is an 89-year-old female with a past medical history significant for coronary artery disease and 3 stents. Patient also has a pacemaker in place. Patient states on Friday she had ALLERGIC reaction to one of her medications and she believes today she took hydralazine about an hour later she started having significant shortness of breath and then chest pressure just like she had when she had her stents placed. Patient states she also became very diaphoretic and lightheaded. Patient states EMS did give her nitroglycerin in the ambulance in the chest pressure has decreased. Patient currently states that shortness of breath has improved. Patient does ALLERGIC reactions to prior to arrival she took Benadryl. Patient denies any fever chills or cough per patient denies headache patient denies numbness weakness. Patient denies lightheadedness or dizziness. Patient denies abdominal pain patient denies nausea vomiting diarrhea. - Related Data Home Medications Medication Instructions Recorded Confirmed Apixaban [Eliquis] 5 mg PO BID 04/19/17 05/11/19 Ascorbic Acid [Vitamin C] 500 mg PO DAILY 04/19/17 05/11/19 Cholecalciferol [Vitamin D3 (25 3,000 unit PO TID 04/19/17 05/11/19 Mcg = 1000 Iu)] glipiZIDE XL [Glucotrol XL] 2.5 mg PO DAILY 04/19/17 05/11/19 Levothyroxine Sodium [Synthroid] 75 mcg PO DAILY 05/26/17 05/11/19 Clopidogrel [Plavix] 75 mg PO DAILY 10/17/18 05/11/19 hydrALAZINE HCL [Apresoline] 100 mg PO TID 10/17/18 05/11/19 Estradiol 0.05MG/24Hr Biwkptch 1 patch TRANSDERM SUWE 01/13/19 05/11/19 [Vivelle-Dot 0.05 MG] cloNIDine HCL [Catapres] 0.1 mg PO BID PRN 01/13/19 05/11/19 traMADol HCL [Ultram] 50 mg PO DAILY PRN 01/13/19 05/11/19 Aspirin EC [Ecotrin Low Dose] 81 mg PO DAILY 05/09/19 05/11/19 Atorvastatin [Lipitor] 20 mg PO HS 05/09/19 05/11/19 Isosorbide Mononitrate ER [Imdur] 90 mg PO HS 05/09/19 05/11/19 Melatonin 10 mg PO HS 05/09/19 05/11/19 Spironolactone [Aldactone] 25 mg PO DAILY PRN 05/09/19 05/11/19 cloNIDine 0.1 MG/24HR PATCH 1 patch TRANSDERM JACOB 05/09/19 05/11/19 [Catapres-TTS] diphenhydrAMINE [Benadryl] 25 - 50 mg PO DAILY PRN 05/09/19 05/11/19 Previous Rx's Medication Instructions Recorded Isosorbide Mononitrate ER [Imdur] 60 mg PO DAILY tab.er.24h 01/13/19 Metoprolol Tartrate [Lopressor] 50 mg PO QID tab 01/13/19 Nitroglycerin Sl Tabs [Nitrostat] 0.4 mg PO Q5M PRN #25 tab 01/18/19 Allergies Allergy/AdvReac Type Severity Reaction Status Date / Time JORGITO Inhibitors Allergy Severe Swelling Verified 05/11/19 12:37 cortisone Allergy Severe Rash/Hives, Verified 05/11/19 12:37 high BP Calcium Channel Blocking AdvReac SORES IN Verified 05/11/19 12:37 Agent Dilt MOUTH dust,trees Allergy Unknown Uncoded 05/11/19 12:37 Review of Systems ROS Statement: Those systems with pertinent positive or pertinent negative responses have been documented in the HPI. ROS Other: All systems not noted in ROS Statement are negative. Past Medical History Past Medical History: Atrial Fibrillation, Coronary Artery Disease (CAD), Cancer, Chest Pain / Angina, Diabetes Mellitus, GERD/Reflux, Hyperlipidemia, Hypertension, Osteoarthritis (OA), Sleep Apnea/CPAP/BIPAP, Thyroid Disorder Additional Past Medical History / Comment(s): skin cancer, restless leg syndrome, varicose veins, IBS, History of Any Multi-Drug Resistant Organisms: None Reported Past Surgical History: Adenoidectomy, Appendectomy, Breast Surgery, Cholecystectomy, Heart Catheterization With Stent, Hysterectomy, Orthopedic Surgery, Pacemaker, Tonsillectomy Additional Past Surgical History / Comment(s): walt cataract, 2 stents, partial thyroidectomy, rt shoulder rotator cuff, walt breast biopsy, metal clip in rt breast Past Anesthesia/Blood Transfusion Reactions: No Reported Reaction Date of Last Stent Placement:: 1998 Type of Cardiac Device: Permanent Pacemaker, Unknown Device Placement Date:: 2014 Past Psychological History: Anxiety, No Psychological Hx Reported Smoking Status: Former smoker Past Alcohol Use History: Occasional Past Drug Use History: None Reported - Past Family History Mother Additional Family Medical History / Comment(s): Mother at age 76 from massive stroke. Brother(s) Additional Family Medical History / Comment(s): The patient had a total of 3 brothers. One brother from melanoma. One brother is with history of coronary artery disease status post CABG. One brother has from colon cancer with history of coronary artery disease. Patient does not have any sisters. Daughter(s) Family Medical History: No Reported History (Healthy 1 daughter) Son(s) History Unknown: Yes (Healthy 3 sons) Additional Family Medical History / Comment(s): Patient has 3 sons and 1 da ughter. One son has history of coronary artery disease, second son has history of AICD. Patient has 1 son and 1 daughter with no major medical problems. Father Additional Family Medical History / Comment(s): Father at age 59 from a myocardial infarction. General Exam - General Exam Comments Initial Comments: GENERAL: Patient is well-developed and well-nourished. Patient is nontoxic and well- hydrated and is in mild distress. ENT: Neck is soft and supple. No significant lymphadenopathy is noted. Oropharynx is clear. Moist mucous membranes. Neck has full range of motion without elicit ing any pain. EYES: The sclera were anicteric and conjunctiva were pink and moist. Extraocular m ovements were intact and pupils were equal round and reactive to light. Eyelids were unremarkable. PULMONARY: Unlabored respirations. Good breath sounds bilaterally. No audible rales rhonchi or wheezing was noted. CARDIOVASCULAR: There is a regular rate and rhythm without any murmurs gallops or rubs. ABDOMEN: Soft and nontender with normal bowel sounds. SKIN: Skin is clear with no lesions or rashes and otherwise unremarkable. NEUROLOGIC: Patient is alert and oriented x3. Cranial nerves II through XII are grossly intact. Motor and sensory are also intact. Normal speech, volume and content. Symmetrical smile. MUSCULOSKELETAL: Normal extremities with adequate strength and full range of motion. LYMPHATICS: No significant lymphadenopathy is noted PSYCHIATRIC: Normal psychiatric evaluation. Limitations: no limitations Course Vital Signs 05/11/19 05/11/19 05/11/19 12:06 14:56 15:00 Temperature 98.6 F Pulse Rate 75 112 H 112 H Respiratory 17 20 20 Rate Blood Pressure 168/79 186/102 189/125 O2 Sat by Pulse 97 95 96 Oximetry 05/11/19 05/11/19 15:08 15:15 Temperature Pulse Rate 116 H 68 Respiratory 20 18 Rate Blood Pressure 178/100 169/100 O2 Sat by Pulse 97 97 Oximetry Medical Decision Making - Medical Decision Making EKG shows a paced rhythm at 65 bpm QRS is 154 Q-T intervals 432 QTC is 449. Patient's chest x-ray shows no acute abnormality. Patient was in the emergency department she got up to go to the bathroom and that caused her some chest discomfort as well as shortness of breath. I spoke with Dr. Silvestre agreed to admit the patient admitted the patient I wrote admitting orders. Patient had chest pain while going to the bathroom so repeat EKG was done still showed a paced rhythm at 90 bpm UT interval 180 QRS is 142 QT interval 38 QTC is 497. Patient's EKG shows no ST segment elevation or depression. - Lab Data Result diagrams: 05/11/19 12:16 05/11/19 12:16 Lab Results 05/11/19 05/11/19 05/11/19 Range/Units 12:16 12:16 12:16 WBC 11.0 H (3.8-10.6) k/uL RBC 4.67 (3.80-5.40) m/uL Hgb 14.5 (11.4-16.0) gm/dL Hct 42.3 (34.0-46.0) % MCV 90.6 (80.0-100.0) fL MCH 31.0 (25.0-35.0) pg MCHC 34.2 (31.0-37.0) g/dL RDW 13.3 (11.5-15.5) % Plt Count 257 (150-450) k/uL Neutrophils % 69 % Lymphocytes % 20 % Monocytes % 7 % Eosinophils % 1 % Basophils % 1 % Neutrophils # 7.6 (1.3-7.7) k/uL Lymphocytes # 2.2 (1.0-4.8) k/uL Monocytes # 0.8 (0-1.0) k/uL Eosinophils # 0.2 (0-0.7) k/uL Basophils # 0.1 (0-0.2) k/uL PT (9.0-12.0) sec INR (<1.2) APTT (22.0-30.0) sec Sodium 138 (137-145) mmol/L Potassium 4.3 (3.5-5.1) mmol/L Chloride 104 (98-107) mmol/L Carbon Dioxide 25 (22-30) mmol/L Anion Gap 9 mmol/L BUN 36 H (7-17) mg/dL Creatinine 0.96 (0.52-1.04) mg/dL Est GFR (CKD-EPI)AfAm 62 (>60 ml/min/1.73 sqM) Est GFR (CKD-EPI)NonAf 53 (>60 ml/min/1.73 sqM) Glucose 133 H (74-99) mg/dL Calcium 9.9 (8.4-10.2) mg/dL Magnesium 1.8 (1.6-2.3) mg/dL Total Bilirubin 0.9 (0.2-1.3) mg/dL AST 36 (14-36) U/L ALT 26 (9-52) U/L Alkaline Phosphatase 58 (38-126) U/L Troponin I (0.000-0.034) ng/mL NT-Pro-B Natriuret Pep 481 pg/mL Total Protein 6.9 (6.3-8.2) g/dL Albumin 3.7 (3.5-5.0) g/dL 05/11/19 05/11/19 Range/Units 12:16 12:16 WBC (3.8-10.6) k/uL RBC (3.80-5.40) m/uL Hgb (11.4-16.0) gm/dL Hct (34.0-46.0) % MCV (80.0-100.0) fL MCH (25.0-35.0) pg MCHC (31.0-37.0) g/dL RDW (11.5-15.5) % Plt Count (150-450) k/uL Neutrophils % % Lymphocytes % % Monocytes % % Eosinophils % % Basophils % % Neutrophils # (1.3-7.7) k/uL Lymphocytes # (1.0-4.8) k/uL Monocytes # (0-1.0) k/uL Eosinophils # (0-0.7) k/uL Basophils # (0-0.2) k/uL PT 10.0 (9.0-12.0) sec INR 0.9 (<1.2) APTT 23.3 (22.0-30.0) sec Sodium (137-145) mmol/L Potassium (3.5-5.1) mmol/L Chloride (98-107) mmol/L Carbon Dioxide (22-30) mmol/L Anion Gap mmol/L BUN (7-17) mg/dL Creatinine (0.52-1.04) mg/dL Est GFR (CKD-EPI)AfAm (>60 ml/min/1.73 sqM) Est GFR (CKD-EPI)NonAf (>60 ml/min/1.73 sqM) Glucose (74-99) mg/dL Calcium (8.4-10.2) mg/dL Magnesium (1.6-2.3) mg/dL Total Bilirubin (0.2-1.3) mg/dL AST (14-36) U/L ALT (9-52) U/L Alkaline Phosphatase (38-126) U/L Troponin I 0.014 (0.000-0.034) ng/mL NT-Pro-B Natriuret Pep pg/mL Total Protein (6.3-8.2) g/dL Albumin (3.5-5.0) g/dL Disposition Clinical Impression: Unstable angina pectoris Disposition: [facility] Time of Disposition: 14:51
[2019-05-11 13:07] LABS: Basophils # (A) 0.1 k/uL (0-0.2); Basophils % (A) 1 %; Eosinophils # (A) 0.2 k/uL (0-0.7); Eosinophils % (A) 1 %; HCT 42.3 % (34.0-46.0); HGB 14.5 gm/dL (11.4-16.0); Lymphocytes # (A) 2.2 k/uL (1.0-4.8); Lymphocytes % (A) 20 %; MCHC 34.2 g/dL (31.0-37.0); MCV 90.6 fL (80.0-100.0); Mean Platelet Volume 6.3; Monocytes # (A) 0.8 k/uL (0-1.0); Monocytes % (A) 7 %; Neutrophils # (A) 7.6 k/uL (1.3-7.7); Neutrophils % (A) 69 %; Platelet Count 257 k/uL (150-450); RBC 4.67 m/uL (3.80-5.40); RDW 13.3 % (11.5-15.5)
[2019-05-11 13:14] LABS: INR 0.9 (<1.2); Partial Thromboplastin Time 23.3 sec (22.0-30.0)
--- NOTE | 2019-05-11 13:19 | XR ---
EXAMINATION TYPE: XR chest 2V DATE OF EXAM: 05/11/2019 COMPARISON: 01/16/2019 INDICATION: Chest pain TECHNIQUE: Frontal and lateral views of the chest are obtained. FINDINGS: The heart size is normal. The pulmonary vasculature is normal. The lungs are clear. Pacemaker overlies left chest. IMPRESSION: 1. No acute pulmonary process.
[2019-05-11 13:41] LABS: Albumin 3.7 g/dL (3.5-5.0); Calcium 9.9 mg/dL (8.4-10.2); Magnesium 1.8 mg/dL (1.6-2.3); Total Bilirubin 0.9 mg/dL (0.2-1.3); Total Protein 6.9 g/dL (6.3-8.2)
[2019-05-11 13:55] LABS: Potassium 4.3 mmol/L (3.5-5.1)
[2019-05-11] MEDS: NITROGLYCERIN SL TABS 0.4 MG TAB SUBLINGUAL PRN ×2 (14:54→15:01)
[2019-05-11] MEDS ORDERED: cloNIDine HCL 0.1 MG TAB PO STA (15:13)
[2019-05-11 16:41] VITALS: BMI 32.2
[2019-05-11 16:47] LABS: Glucose,Whole Blood 93 mg/dL (75-99)
[2019-05-11] MEDS ORDERED: traMADol 50 MG TAB PO PRN (17:08)
[2019-05-11] MEDS ORDERED: NITROGLYCERIN SL TABS 0.4 MG TAB SUBLINGUAL PRN (17:08)
[2019-05-11] MEDS ORDERED: SPIRONOLACTONE 25 MG TAB PO PRN (17:08)
[2019-05-11] MEDS ORDERED: NITROGLYCERIN OINT 1 INCH/GM PACKET TOPICAL SCH (18:00)
[2019-05-11] MEDS: APIXABAN 5 MG TAB PO SCH (19:57)
[2019-05-11] MEDS: MELATONIN 5 MG TABLET PO SCH ×2 (19:57→22:54)
[2019-05-11] MEDS: CHOLECALCIFEROL 1,000 UNIT TAB PO SCH (19:57)
[2019-05-11 20:09] LABS: Glucose,Whole Blood 133 mg/dL (75-99)
[2019-05-11] MEDS: cloNIDine HCL 0.2 MG TAB PO SCH (20:43)
[2019-05-11] MEDS ORDERED: ATORVASTATIN 20 MG TAB PO SCH (21:00)
[2019-05-11] MEDS ORDERED: ISOSORBIDE MONONITRATE ER 30 MG TAB.ER.24H PO SCH (21:00)
[2019-05-11] MEDS ORDERED: cloNIDine HCL 0.1 MG TAB PO PRN (22:00)
[2019-05-12 04:12] VITALS: TEMP 97.8
[2019-05-12 06:16] LABS: Glucose,Whole Blood 131 mg/dL (75-99)
[2019-05-12] MEDS ORDERED: LEVOTHYROXINE 75 MCG TAB PO SCH (06:30)
[2019-05-12 06:31] LABS: Cholesterol 160 mg/dL (<200); HDL Cholesterol 48 mg/dL (40-60); LDL Cholesterol,Calculated 72 mg/dL (0-99); Triglycerides 199 mg/dL (<150)
[2019-05-12] MEDS ORDERED: CARVEDILOL 6.25 MG TAB PO SCH (07:30)
[2019-05-12] MEDS ORDERED: diphenhydrAMINE 25 MG CAP PO STA (08:18)
--- NOTE | 2019-05-12 08:30 | P.CRDCN ---
History of Present Illness Consult date: 05/12/19 Requesting physician: Shraddha Stanley Consult reason: chest pain Chief complaint: chest pain History of present illness: This is a pleasant 89-year-old female who follows with a chief gauger at [facility], Malou Noel is her chief gauger. She has a known history of coronary artery disease with prior stent placements, the most recent stent was placed in April 2018 according to the patient. She also has a history of hypertension, hyperlipidemia, diabetes, GERD, sleep apnea, history of permanent pacemaker, paroxysmal atrial fibrillation, hypothyroidism. According to the patient, she was having some type of an ALLERGIC reaction which started on of last week where her lips began to swell, she states that she was taking Benadryl for a couple of days. She did go into see Dr. Locke on Friday who discontinued her metoprolol to see if that was the cause. She took a dose of hydralazine on Friday and again had severe swelling of her lips, subsequent to that patient became extremely short of breath and dizzy, she states she developed chest pressure midsternally, EMS was called, she was given sublingual nitroglycerin in the ambulance and brought to the emergency room for further evaluation and treatment. According to the patient, her most recent stress test was a nuclear stress test performed in November of this year at [facility]. At the time of my examination this morning she is chest pain-free, she did receive a dose of Coreg this morning and states that now again her lips are swelling. Chest x-ray does not reveal any acute pulmonary process. Chest x-ray on presentation here shows a paced rhythm with underlying normal sinus rhythm. Nonspecific ST-T wave changes noted in the lateral leads. Blood pressure on arrival here 168/70 with a heart rate of 70, 97% on 2 L of oxygen. Couple hours after arriving here the blood pressure did go up to 186/102 and a heart rate went up into the 1 teens. This morning's blood pressure 120/60 with a heart rate in the 70s. White blood cell count 11, hemoglobin 14.5, platelet count 257. Sodium 138., Potassium 4.3, BUN 36, creatinine 0.9. Troponins 0.014, 0.073, 0.053. BNP 481. Magnesium 1.8. This morning patient denies any chest discomfort breathing is stable, no dizziness or lightheadedness. Past Medical History Past Medical History: Atrial Fibrillation, Coronary Artery Disease (CAD), Cancer, Chest Pain / Angina, Diabetes Mellitus, GERD/Reflux, Hyperlipidemia, Hypertension, Osteoarthritis (OA), Sleep Apnea/CPAP/BIPAP, Thyroid Disorder Additional Past Medical History / Comment(s): skin cancer, restless leg synd vamsi, varicose veins, IBS, History of Any Multi-Drug Resistant Organisms: None Reported Past Surgical History: Adenoidectomy, Appendectomy, Breast Surgery, Cholecystectomy, Heart Catheterization With Stent, Hysterectomy, Orthopedic Surgery, Pacemaker, Tonsillectomy Additional Past Surgical History / Comment(s): walt cataract, 2 stents, partial thyroidectomy, rt shoulder rotator cuff, walt breast biopsy, metal clip in rt gwen ast Past Anesthesia/Blood Transfusion Reactions: No Reported Reaction Date of Last Stent Placement:: 1998 Type of Cardiac Device: Permanent Pacemaker, Unknown Device Placement Date:: 2014 Past Psychological History: Anxiety, No Psychological Hx Reported Smoking Status: Former smoker Past Alcohol Use History: Occasional Past Drug Use History: None Reported - Past Family History Mother Additional Family Medical History / Comment(s): Mother at age 76 from massive stroke. Brother(s) Additional Family Medical History / Comment(s): The patient had a total of 3 brothers. One brother from melanoma. One brother is with history of coronary artery disease status post CABG. One brother has from colon cancer with history of coronary artery disease. Patient does not have any sisters. Daughter(s) Family Medical History: No Reported History (Healthy 1 daughter) Son(s) History Unknown: Yes (Healthy 3 sons) Additional Family Medical History / Comment(s): Patient has 3 sons and 1 daughter. One son has history of coronary artery disease, second son has history of AICD. Patient has 1 son and 1 daughter with no major medical problems. Father Additional Family Medical History / Comment(s): Father at age 59 from a myocardial infarction. Medications and Allergies Home Medications Medication Instructions Recorded Confirmed Type Apixaban [Eliquis] 5 mg PO BID 04/19/17 05/11/19 History Ascorbic Acid [Vitamin C] 500 mg PO DAILY 04/19/17 05/11/19 History Cholecalciferol [Vitamin D3 (25 3,000 unit PO TID 04/19/17 05/11/19 History Mcg = 1000 Iu)] glipiZIDE XL [Glucotrol XL] 2.5 mg PO DAILY 04/19/17 05/11/19 History Levothyroxine Sodium [Synthroid] 75 mcg PO DAILY 05/26/17 05/11/19 History Clopidogrel [Plavix] 75 mg PO DAILY 10/17/18 05/11/19 History hydrALAZINE HCL [Apresoline] 100 mg PO TID 10/17/18 05/11/19 History Estradiol 0.05MG/24Hr Biwkptch 1 patch TRANSDERM SUWE 01/13/19 05/11/19 History [Vivelle-Dot 0.05 MG] Isosorbide Mononitrate ER [Imdur] 60 mg PO DAILY tab.er.24h 01/13/19 05/11/19 Rx Metoprolol Tartrate [Lopressor] 50 mg PO QID tab 01/13/19 05/11/19 Rx cloNIDine HCL [Catapres] 0.1 mg PO TID 01/13/19 05/11/19 History traMADol HCL [Ultram] 50 mg PO DAILY PRN 01/13/19 05/11/19 History Nitroglycerin Sl Tabs [Nitrostat] 0.4 mg PO Q5M PRN #25 tab 01/18/19 05/11/19 Rx Aspirin EC [Ecotrin Low Dose] 81 mg PO DAILY 05/09/19 05/11/19 History Atorvastatin [Lipitor] 20 mg PO HS 05/09/19 05/11/19 History Isosorbide Mononitrate ER [Imdur] 90 mg PO HS 05/09/19 05/11/19 History Melatonin 10 mg PO HS 05/09/19 05/11/19 History Spironolactone [Aldactone] 25 mg PO DAILY PRN 05/09/19 05/11/19 History cloNIDine 0.1 MG/24HR PATCH 1 patch TRANSDERM JACOB 05/09/19 05/11/19 History [Catapres-TTS] diphenhydrAMINE [Benadryl] 25 - 50 mg PO DAILY PRN 05/09/19 05/11/19 History Allergies Allergy/AdvReac Type Severity Reaction Status Date / Time JORGITO Inhibitors Allergy Severe Swelling Verified 05/11/19 12:37 cortisone Allergy Severe Rash/Hives, Verified 05/11/19 12:37 high BP Calcium Channel Blocking AdvReac SORES IN Verified 05/11/19 12:37 Agent Dilt MOUTH dust,trees Allergy Unknown Uncoded 05/11/19 12:37 Physical Exam Vitals: Vital Signs Temp Pulse Pulse Resp BP BP Pulse Ox 05/12/19 04:00 97.8 F 75 17 121/65 95 05/11/19 23:58 98 F 80 16 141/71 95 05/11/19 20:00 97.9 F 71 17 190/87 95 05/11/19 16:00 98.0 F 64 18 130/72 94 L 05/11/19 15:56 60 17 138/69 95 05/11/19 15:15 68 18 169/100 97 05/11/19 15:08 116 H 20 178/100 97 05/11/19 15:00 112 H 20 189/125 96 05/11/19 14:56 112 H 20 186/102 95 05/11/19 12:06 98.6 F 75 17 168/79 97 Intake and Output 05/11/19 05/12/19 05/12/19 22:59 06:59 14:59 Intake Total 250 1940 Balance 250 1940 Intake: IV 10 20 Invasive Line 1 10 20 Oral 240 1920 Other: Voiding Method Toilet Toilet # Voids 1 2 Weight 87.2 kg PHYSICAL EXAMINATION: GENERAL: 89-year-old female in no acute distress at the time of my examination HEENT: Head is atraumatic, normocephalic. Pupils equal, round. Sclera anicteric. Conjunctiva are clear. Mucous membranes of the mouth are moist. Neck is supple. There is no elevated jugular venous pressure. No carotid bruit is heard. HEART EXAMINATION: Heart S1, S2 normal. No murmur or gallop heard. CHEST EXAMINATION: Lungs are clear to auscultation and precussion. No chest wall tenderness is noted on palpation or with deep breathing. ABDOMEN: Soft, nontender. Bowel sounds are heard. No organomegaly noted. EXTREMITIES: 2+ peripheral pulses with no evidence of peripheral edema and no calf tenderness noted. NEUROLOGIC patient is awake, alert and oriented 3 . . Results 05/11/19 12:16 05/11/19 12:16 Cardiac Enzymes 05/11/19 05/11/19 05/11/19 Range/Units 12:16 12:16 17:29 AST 36 (14-36) U/L Troponin I 0.014 0.073 H* (0.000-0.034) ng/mL 05/11/19 Range/Units 23:55 AST (14-36) U/L Troponin I 0.053 H* (0.000-0.034) ng/mL Coagulation 05/11/19 05/11/19 Range/Units 12:16 23:55 PT 10.0 (9.0-12.0) sec APTT 23.3 25.1 (22.0-30.0) sec Lipids 05/11/19 Range/Units 06:00 Triglycerides 199 H (<150) mg/dL Cholesterol 160 (<200) mg/dL HDL Cholesterol 48 (40-60) mg/dL CBC 05/11/19 Range/Units 12:16 WBC 11.0 H (3.8-10.6) k/uL RBC 4.67 (3.80-5.40) m/uL Hgb 14.5 (11.4-16.0) gm/dL Hct 42.3 (34.0-46.0) % Plt Count 257 (150-450) k/uL Comprehensive Metabolic Panel 05/11/19 Range/Units 12:16 Sodium 138 (137-145) mmol/L Potassium 4.3 (3.5-5.1) mmol/L Chloride 104 (98-107) mmol/L Carbon Dioxide 25 (22-30) mmol/L BUN 36 H (7-17) mg/dL Creatinine 0.96 (0.52-1.04) mg/dL Glucose 133 H (74-99) mg/dL Calcium 9.9 (8.4-10.2) mg/dL AST 36 (14-36) U/L ALT 26 (9-52) U/L Alkaline Phosphatase 58 (38-126) U/L Total Protein 6.9 (6.3-8.2) g/dL Albumin 3.7 (3.5-5.0) g/dL Current Medications Generic Name Dose Route Start Last Admin Trade Name Freq PRN Reason Stop Dose Admin Apixaban 5 mg 05/11/19 21:00 05/11/19 19:57 Eliquis PO 5 mg BID [facility] Administration Ascorbic Acid 500 mg 05/12/19 09:00 Vitamin C PO DAILY [facility] Aspirin 81 mg 05/12/19 09:00 Aspirin PO DAILY [facility] Atorvastatin Calcium 20 mg 05/11/19 21:00 05/11/19 19:57 Lipitor PO 20 mg HS [facility] Administration Carvedilol 6.25 mg 05/12/19 07:30 05/12/19 06:19 Coreg PO 6.25 mg BID-W/MEALS [facility] Administration Cholecalciferol 3,000 unit 05/11/19 22:00 05/11/19 19:57 Vitamin D3 (25 Mcg = 1000 Iu) PO 3,000 unit TID [facility] Administration Clonidine 0.2 mg 05/11/19 22:00 05/11/19 20:43 Catapres PO 0.2 mg TID [facility] Administration Clopidogrel Bisulfate 75 mg 05/12/19 09:00 Plavix PO DAILY [facility] Glipizide 2.5 mg 05/12/19 09:00 Glucotrol PO DAILY [facility] Isosorbide Mononitrate 60 mg 05/12/19 09:00 Imdur PO DAILY [facility] Isosorbide Mononitrate 90 mg 05/11/19 21:00 05/11/19 20:45 Imdur PO 90 mg HS [facility] Administration Levothyroxine Sodium 75 mcg 05/12/19 06:30 05/12/19 06:18 Synthroid PO 75 mcg DAILY@0630 [facility] Administration Melatonin 10 mg 05/11/19 21:00 05/11/19 22:54 Melatonin PO Not Given HS [facility] Nitroglycerin 0.4 mg 05/11/19 14:51 05/11/19 15:01 Nitrostat SUBLINGUAL 0.4 mg Q5M PRN Administration Chest Pain Spironolactone 25 mg 05/11/19 17:08 Aldactone PO DAILY PRN Edema Tramadol HCl 50 mg 05/11/19 17:08 05/11/19 22:09 Ultram PO 50 mg DAILY PRN Administration Pain Intake and Output 05/11/19 05/12/19 05/12/19 22:59 06:59 14:59 Intake Total 250 194 Balance 250 194 Intake: IV 10 20 Invasive Line 1 10 20 Oral 240 1920 Other: Voiding Method Toilet Toilet # Voids 1 2 Weight 87.2 kg 05/11/19 12:16 05/11/19 12:16 EKG Interpretations (text) EKG shows a paced rhythm with lateral T-wave inversion, underlying normal sinus rhythm. Assessment and Plan Plan: Assessment and plan #1 symptoms of shortness of breath with associated chest discomfort and dizziness, rule out possible non-Q-wave CA. Initial troponin 0.014, subsequent troponin 0.073, 0.053. He shows a paced rhythm with T wave inversion in the lateral leads, underlying normal sinus rhythm. #2 symptoms of lip swelling, possible ALLERGIC reaction to medication #3 history of coronary artery disease with prior stent placements, most recent stent was placed in April of last year at [facility] #4 paroxysmal atrial fibrillation, on Eliquis for anticoagulation #5 hypertension #6 hyperlipidemia #7 diabetes #8 sleep apnea #9 hypothyroidism Plan Will obtain an echocardiogram with Doppler study. We will also obtain records from [facility], patient states that she had a nuclear stress test performed in November of this year. She is currently on Eliquis 5 mg one tablet by mouth twice a day along with aspirin, recently her Plavix had been discontinued according to her, she takes Lipitor 20 mg daily which we will continue, she has also been started on Coreg this morning because her metoprolol was recently discontinued with suspicion of possible ALLERGY, she did however take Coreg this morning and has had some lip swelling we will hold the Coreg at this time, further recommendations to follow. DNP note has been reviewed, I agree with a documented findings and plan of care. Patient was seen and examined.
[2019-05-12] MEDS ORDERED: ISOSORBIDE MONONITRATE ER 60 MG TAB.ER.24H PO SCH (09:00)
[2019-05-12] MEDS ORDERED: CLOPIDOGREL 75 MG TAB PO SCH (09:00)
[2019-05-12] MEDS ORDERED: ASPIRIN 81 MG PO SCH (09:00)
[2019-05-12] MEDS ORDERED: ASPIRIN 325 MG TAB PO SCH (09:00)
[2019-05-12] MEDS ORDERED: ASCORBIC ACID 500 MG TAB PO SCH (09:00)
[2019-05-12] MEDS: cloNIDine HCL 0.2 MG TAB PO SCH (09:10)
[2019-05-12] MEDS: CHOLECALCIFEROL 1,000 UNIT TAB PO SCH (09:11)
[2019-05-12] MEDS: APIXABAN 5 MG TAB PO SCH (09:11)
[2019-05-12 11:57] LABS: Glucose,Whole Blood 80 mg/dL (75-99)
[2019-05-12 12:24] VITALS: BP 122/73; PULSE 74; RESP 14
--- NOTE | 2019-05-12 13:01 | ECHOF ---
Referral Reason:elevated troponin MEASUREMENTS -------- HEIGHT: 165.1 cm WEIGHT: 88.0 kg BP: 121/64 RVIDd: 2.8 cm (< 3.3) IVSd: 1.4 cm (0.6 - 1.1) LVIDd: 4.5 cm (3.9 - 5.3) LVPWd: 1.5 cm (0.6 - 1.1) IVSs: 1.7 cm LVIDs: 3.6 cm LVPWs: 1.3 cm LA Diam: 4.7 cm (2.7 - 3.8) LAESV Index (A-L): 38.90 ml/m Ao Diam: 3.4 cm (2.0 - 3.7) AV Cusp: 1.2 cm (1.5 - 2.6) LA Diam: 3.7 cm (2.7 - 3.8) MV EXCURSION: 12.148 mm (> 18.000) MV EF SLOPE: 50 mm/s (70 - 150) EPSS: 1.1 cm MV E Gordo: 0.56 m/s MV DecT: 291 ms MV A Gordo: 1.07 m/s MV E/A Ratio: 0.52 RAP: 5.00 mmHg RVSP: 26.04 mmHg TAPSE: 23.82 mm FINDINGS -------- Paced rhythm. This was a technically adequate study. The left ventricular size is normal. There is mild concentric left ventricular hypertrophy. Overa ll left ventricular systolic function is low-normal with, an EF between 50 - 55 %. Left ventricular fillimg pressure cannot be estimated due to Atrial fibrillation. The right ventricle is normal in size. The left atrium is markedly dilated. LA is severely dilated >40 ml/m2 The right atrial size is normal. There is mild aortic valve sclerosis. There is no evidence of aortic regurgitation. Mild mitral annular calcification present. Mild mitral regurgitation is present. Mild tricuspid regurgitation present. There is no evidence of pulmonary hypertension. The right v entricular systolic pressure, as measured by Doppler, is 26.04mmHg. There is no pulmonic regurgitation present. The aortic root size is normal. There is no pericardial effusion. CONCLUSIONS -------- 1. Paced rhythm. 2. This was a technically adequate study. 3. The left ventricular size is normal. 4. There is mild concentric left ventricular hypertrophy. 5. Overall left ventricular systolic function is low-normal with, an EF between 50 - 55 %. 6. Left ventricular fillimg pressure cannot be estimated due to Atrial fibrillation. 7. The right ventricle is normal in size. 8. The left atrium is markedly dilated. 9. LA is severely dilated >40 ml/m2 10. The right atrial size is normal. 11. There is mild aortic valve sclerosis. 12. Mild mitral annular calcification present. 13. Mild mitral regurgitation is present. 14. Mild tricuspid regurgitation present. 15. There is no evidence of pulmonary hypertension. 16. The right ventricular systolic pressure, as measured by Doppler, is 26.04mmHg. 17. There is no pulmonic regurgitation present. 18. The aortic root size is normal. 19. There is no pericardial effusion. GERMINATION WORKER: Leanna Gates RDCS
--- NOTE | 2019-05-13 09:44 | P.HPIM ---
History of Present Illness H&P Date: 05/12/19 Chief Complaint: chest pain HISTORY AND PHYSICAL AND DISCHARGE SUMMARY: This is ant 89-year-old female patient of Dr. Locke and who follows with a med aide at [facility]. She has a past medical history of coronary artery disease with prior stent placements, the most recent stent was placed in April 2018 according to the patient, hypertension, hyperlipidemia, diabetes mellitus type II, GERD, obstructive sleep apnea, history of permanent pacemaker, paroxysmal atrial fibrillation, hypothyroidism. Patient states that Friday morning she woke up and she thought she better her lower lip because it seemed to be swollen. She thought it started after she took her metoprolol. She took Benadryl but continued to take the beta william. She took it on Friday and by the evening she felt much worse. She continue to take Benadryl and increased her water intake. On Friday morning she called the on-call physician, Dr. Stanley, and was instructed to quit the beta william but patient states that she quit everything. On Friday she saw Windy Locke in the office. She was started on hydralazine and clonidine patch. By yesterday morning she states that she could not get her breath. It started about one and half hours after she took hydralazine. She states she was gasping for breath. She took Benadryl but she kept feeling worse. She then developed dizziness and shortness of breath. When she got into the ambulance, she developed chest pain as well. She denies having any rash. No syncope. She does complain of shakiness or sweating. At the time of this evaluation, patient denies any chest pain or shortness of breath, no dizziness, no lightheadedness. Patient has been evaluated by cardiology. Echocardiogram reveals EF 50-55% with mild concentric left ventricular hypertrophy, mild mitral regurgitation, mild tricuspid regurgitation, no pulmonary hypertension. Troponins were 0.014, 0.073 and 0.053. Discuss case with Dr. Karo hobbs NP and patient was okay for discharge as long as she followed up with her primary med aide within the week. Patient was instructed to stop hydralazine, beta william, clonidine patch. Clonidine has been increased to 0.2 mg 3 times daily. Patient is to be checking her blood pressure every day through the next week and recording for Dr. Locke's office for next week for follow-up appointment. Review of Systems Constitutional: Reports fatigue, Denies anorexia, Denies chills, Denies fever, Denies poor appetite, Denies weakness Eyes: denies blurred vision, denies pain Ears, nose, mouth and throat: Reports vertigo, Denies dysphagia, Denies nasal congestion, Denies nasal discharge Cardiovascular: Reports chest pain, Reports lightheadedness, Reports shortness of breath, Denies decreased exercise tolerance, Denies dyspnea on exertion, Denies edema, Denies palpitations, Denies syncope Respiratory: Reports dyspnea, Denies cough, Denies cough with sputum, Denies excessive sputum, Denies hemoptysis, Denies home oxygen, Denies respiratory infections Gastrointestinal: Denies abdominal pain, Denies diarrhea, Denies nausea, Denies vomiting Genitourinary: Denies dysuria, Denies hematuria Musculoskeletal: Denies muscle weakness, Denies myalgias Integumentary: Denies pruritus, Denies rash Neurological: Denies numbness, Denies weakness Past Medical History Past Medical History: Atrial Fibrillation, Coronary Artery Disease (CAD), Cancer, Chest Pain / Angina, Diabetes Mellitus, GERD/Reflux, Hyperlipidemia, Hypertension, Osteoarthritis (OA), Sleep Apnea/CPAP/BIPAP, Thyroid Disorder Additional Past Medical History / Comment(s): skin cancer, restless leg syndrome, varicose veins, IBS, History of Any Multi-Drug Resistant Organisms: None Reported Past Surgical History: Adenoidectomy, Appendectomy, Breast Surgery, Cholecystectomy, Heart Catheterization With Stent, Hysterectomy, Orthopedic Surgery, Pacemaker, Tonsillectomy Additional Past Surgical History / Comment(s): walt cataract, 2 stents, partial thyroidectomy, rt shoulder rotator cuff, walt breast biopsy, metal clip in rt breast Past Anesthesia/Blood Transfusion Reactions: No Reported Reaction Date of Last Stent Placement:: 1998 Type of Cardiac Device: Permanent Pacemaker, Unknown Device Placement Date:: 2014 Past Psychological History: Anxiety, No Psychological Hx Reported Smoking Status: Former smoker Past Alcohol Use History: Occasional Past Drug Use History: None Reported - Past Family History Mother Additional Family Medical History / Comment(s): Mother at age 76 from massive stroke. Brother(s) Additional Family Medical History / Comment(s): The patient had a total of 3 brothers. One brother from melanoma. One brother is with history of coronary artery disease status post CABG. One brother has from colon cancer with history of coronary artery disease. Patient does not have any sisters. Daughter(s) Family Medical History: No Reported History (Healthy 1 daughter) Son(s) History Unknown: Yes (Healthy 3 sons) Additional Family Medical History / Comment(s): Patient has 3 sons and 1 daughter. One son has history of coronary artery disease, second son has history of AICD. Patient has 1 son and 1 daughter with no major medical problems. Father Additional Family Medical History / Comment(s): Father at age 59 from a myocardial infarction. Medications and Allergies Home Medications Medication Instructions Recorded Confirmed Type Apixaban [Eliquis] 5 mg PO BID 04/19/17 05/11/19 History Ascorbic Acid [Vitamin C] 500 mg PO DAILY 04/19/17 05/11/19 History Cholecalciferol [Vitamin D3 (25 3,000 unit PO TID 04/19/17 05/11/19 History Mcg = 1000 Iu)] glipiZIDE XL [Glucotrol XL] 2.5 mg PO DAILY 04/19/17 05/11/19 History Levothyroxine Sodium [Synthroid] 75 mcg PO DAILY 05/26/17 05/11/19 History Clopidogrel [Plavix] 75 mg PO DAILY 10/17/18 05/11/19 History Estradiol 0.05MG/24Hr Biwkptch 1 patch TRANSDERM SUWE 01/13/19 05/11/19 History [Vivelle-Dot 0.05 MG] Isosorbide Mononitrate ER [Imdur] 60 mg PO DAILY tab.er.24h 01/13/19 05/11/19 Rx traMADol HCL [Ultram] 50 mg PO DAILY PRN 01/13/19 05/11/19 History Nitroglycerin Sl Tabs [Nitrostat] 0.4 mg PO Q5M PRN #25 tab 01/18/19 05/11/19 Rx Aspirin EC [Ecotrin Low Dose] 81 mg PO DAILY 05/09/19 05/11/19 History Atorvastatin [Lipitor] 20 mg PO HS 05/09/19 05/11/19 History Isosorbide Mononitrate ER [Imdur] 90 mg PO HS 05/09/19 05/11/19 History Melatonin 10 mg PO HS 05/09/19 05/11/19 History Spironolactone [Aldactone] 25 mg PO DAILY PRN 05/09/19 05/11/19 History diphenhydrAMINE [Benadryl] 25 - 50 mg PO DAILY PRN 05/09/19 05/11/19 History cloNIDine HCL [Catapres] 0.2 mg PO TID #90 tab 05/12/19 Rx Allergies Allergy/AdvReac Type Severity Reaction Status Date / Time JORGITO Inhibitors Allergy Severe Swelling Verified 05/11/19 12:37 cortisone Allergy Severe Rash/Hives, Verified 05/11/19 12:37 high BP Beta-Blockers Allergy Swelling Verified 05/12/19 12:16 (Beta-Adrenergic Bloc hydralazine Allergy Swelling Verified 05/12/19 12:16 Calcium Channel Blocking AdvReac SORES IN Verified 05/11/19 12:37 Agent Dilt MOUTH dust,trees Allergy Unknown Uncoded 05/11/19 12:37 Physical Exam Vitals: Vital Signs Temp Pulse Pulse Resp BP BP Pulse Ox 05/12/19 08:00 103 H 17 175/89 94 L 05/12/19 04:00 97.8 F 75 17 121/65 95 05/11/19 23:58 98 F 80 16 141/71 95 05/11/19 20:00 97.9 F 71 17 190/87 95 05/11/19 16:00 98.0 F 64 18 130/72 94 L 05/11/19 15:56 60 17 138/69 95 05/11/19 15:15 68 18 169/100 97 05/11/19 15:08 116 H 20 178/100 97 05/11/19 15:00 112 H 20 189/125 96 05/11/19 14:56 112 H 20 186/102 95 05/11/19 12:06 98.6 F 75 17 168/79 97 Intake and Output 05/11/19 05/12/19 05/12/19 22:59 06:59 14:59 Intake Total 250 194 250 Balance 250 1940 250 Intake: IV 10 20 10 Invasive Line 1 10 20 10 Oral 240 1920 240 Other: Voiding Method Toilet Toilet # Voids 1 2 Weight 87.2 kg Gen: This is an 89-year-old female. Patient is sitting on the edge of her bed eating lunch. She appears to be in no acute distress. She denies any shortness of breath, difficulty swallowing. HEENT: Head is atraumatic, normocephalic. Pupils equal, round. Sclerae is anicteric. NECK: Supple. No JVD. No lymphadenopathy. No thyromegaly. LUNGS: Clear to auscultation. No wheezes or rhonchi. No intercostal retractions. HEART: Regular rate and rhythm. No murmur. ABDOMEN: Soft. Bowel sounds are present. No masses. No tenderness. EXTREMITIES: No pedal edema. No calf tenderness. NEUROLOGICAL: Patient is awake, alert and oriented x3. Cranial nerves 2 through 12 are grossly intact. Results CBC & Chem 7: 05/11/19 12:16 05/11/19 12:16 Labs: Abnormal Lab Results - Last 24 Hours (Table) 05/11/19 05/11/19 05/11/19 Range/Units 06:00 12:16 12:16 WBC 11.0 H (3.8-10.6) k/uL BUN 36 H (7-17) mg/dL Glucose 133 H (74-99) mg/dL POC Glucose (mg/dL) (75-99) mg/dL Troponin I (0.000-0.034) ng/mL Triglycerides 199 H (<150) mg/dL 05/11/19 05/11/19 05/11/19 Range/Units 17:29 20:08 23:55 WBC (3.8-10.6) k/uL BUN (7-17) mg/dL Glucose (74-99) mg/dL POC Glucose (mg/dL) 133 H (75-99) mg/dL Troponin I 0.073 H* 0.053 H* (0.000-0.034) ng/mL Triglycerides (<150) mg/dL 05/12/19 Range/Units 06:14 WBC (3.8-10.6) k/uL BUN (7-17) mg/dL Glucose (74-99) mg/dL POC Glucose (mg/dL) 131 H (75-99) mg/dL Troponin I (0.000-0.034) ng/mL Triglycerides (<150) mg/dL Thrombosis Risk Factor Assmnt - Choose All That Apply Each Factor Represents 1 point: Obesity (BMI >25) Each Risk Factor Represents 3 Points: Age 75 years or older Thrombosis Risk Factor Assessment Total Risk Factor Score: 4 Thrombosis Risk Factor Assessment Level: Moderate Risk Assessment and Plan Plan: 1. ALLERGIC reaction to beta william and hydralazine. 2. Episode of chest discomfort, shortness of breath and dizziness with mild e levation in troponins. Cardiology consult appreciated. Echocardiogram as above. 3. History of coronary artery disease with prior stent placements, [facility]. 4. Paroxysmal atrial fibrillation on eliquis. 5. Hypertension. 6. Hyperlipidemia. 7. Diabetes mellitus type 2. 8. Obstructive sleep apnea. 9. Hypothyroidism. Patient will be admitted to the hospital for a minimum of 1 night stay. Discharge plan: home Discharge Medication List Apixaban [Eliquis] 5 mg PO BID 04/19/17 [History] Ascorbic Acid [Vitamin C] 500 mg PO DAILY 04/19/17 [History] Cholecalciferol [Vitamin D3 (25 Mcg = 1000 Iu)] 3,000 unit PO TID 04/19/17 [History] glipiZIDE XL [Glucotrol XL] 2.5 mg PO DAILY 04/19/17 [History] Levothyroxine Sodium [Synthroid] 75 mcg PO DAILY 05/26/17 [History] Clopidogrel [Plavix] 75 mg PO DAILY 10/17/18 [History] Estradiol 0.05MG/24Hr Biwkptch [Vivelle-Dot 0.05 MG] 1 patch TRANSDERM SUWE 01/13/19 [History] Isosorbide Mononitrate ER [Imdur] 60 mg PO DAILY tab.er.24h 01/13/19 [Rx] traMADol HCL [Ultram] 50 mg PO DAILY PRN 01/13/19 [History] Nitroglycerin Sl Tabs [Nitrostat] 0.4 mg PO Q5M PRN #25 tab 01/18/19 [Rx] Aspirin EC [Ecotrin Low Dose] 81 mg PO DAILY 05/09/19 [History] Atorvastatin [Lipitor] 20 mg PO HS 05/09/19 [History] Isosorbide Mononitrate ER [Imdur] 90 mg PO HS 05/09/19 [History] Melatonin 10 mg PO HS 05/09/19 [History] Spironolactone [Aldactone] 25 mg PO DAILY PRN 05/09/19 [History] diphenhydrAMINE [Benadryl] 25 - 50 mg PO DAILY PRN 05/09/19 [History] cloNIDine HCL [Catapres] 0.2 mg PO TID #90 tab 05/12/19 [Rx] Impression and plan of care have been directed as dictated by the signing physi cian. Tereza Arnett nurse practitioner acting as scribe for signing physician.
--- NOTE | 2019-05-13 15:39 | CDI ---
Documentation Clarification Form Date: 05/13/19 From: Dominga Mathis Phone: If you have a question regarding this query, please contact Karina Garcia at [phone] between 8am and 5pm. Admit Date: 05/11/2019 2:51:00 PM Patient Name: Liliana Jennings Visit Number: [id number] Discharge Date: 05/12/2019 3:15:00 PM ATTENTION: The Clinical Documentation Specialists (CDI) and [facility] Coding Staff appreciate your assistance in clarifying documentation. Please respond to the clarification below the line at the bottom and electronically sign. The CDI & [facility] Coding staff will review the response and follow-up if needed. Please note: Queries are made part of the Legal Health Record. If you have any questions, please contact the author of this message via ITS. Dr. Trini Cisneros The patient presented with symptoms of lip swelling with allergic reaction to beta william and hydralazine. Patient also had an episode of chest discomfort, shortness of breath and dizziness with mild elevation in troponins. Documentation in the cardiology consult note state "rule-out non-Q-wave PR. History/Risk Factors: CAD, atrial fib, hypertension, hyperlipidemia, previous stent. Clinical Indicators: chest discomfort, shortness of breath, dizziness Lab findings: Troponin 0.014, 0.073, 0.053 Radiology findings: No acute pulmonary process. Vital Signs: T. 98.6, P. 75, R. 17, BP 168/79 Treatment: Nitro-Bid ointment x1, Nitrostat x 2 In your professional opinion, can you please clarify if the non-! wave PR was? Ruled Out Ruled In Other, please specify Unable to determine Non-Q wave PR ruled out. MTDD
[2019-05-16] MEDS ORDERED: cloNIDine 0.1 MG/24HR PATCH TRANSDERM SCH (09:00)
== END 2019-05-12 15:15 | disposition home or self-care (01) | DRG 313 ==
LOC: EC 11:56 → 3SCARD 14:51
PROVIDERS: ADMIT Internal Medicine; ATTEND Internal Medicine
DX: R07.9 Chest pain, unspecified (principal); I25.110 Atherosclerotic heart disease of native coronary artery with unstable angina pectoris; R06.02 Shortness of breath; I07.1 Rheumatic tricuspid insufficiency; E11.9 Type 2 diabetes mellitus without complications; I48.0 Paroxysmal atrial fibrillation; T44.7X5A Adverse effect of beta-adrenoreceptor antagonists, initial encounter; T46.5X5A Adverse effect of other antihypertensive drugs, initial encounter; R42 Dizziness and giddiness; E89.0 Postprocedural hypothyroidism; E78.5 Hyperlipidemia, unspecified; F41.9 Anxiety disorder, unspecified; G25.81 Restless legs syndrome; G47.33 Obstructive sleep apnea (adult) (pediatric); K21.9 Gastro-esophageal reflux disease without esophagitis; K58.9 Irritable bowel syndrome, unspecified; I83.90 Asymptomatic varicose veins of unspecified lower extremity; M19.90 Unspecified osteoarthritis, unspecified site; I10 Essential (primary) hypertension; Z79.01 Long term (current) use of anticoagulants; Z79.02 Long term (current) use of antithrombotics/antiplatelets; Z79.82 Long term (current) use of aspirin; Z79.84 Long term (current) use of oral hypoglycemic drugs; Z79.890 Hormone replacement therapy; Z79.899 Other long term (current) drug therapy; Z85.828 Personal history of other malignant neoplasm of skin; Z95.5 Presence of coronary angioplasty implant and graft; Z95.0 Presence of cardiac pacemaker; Z90.710 Acquired absence of both cervix and uterus; Z87.891 Personal history of nicotine dependence; Z90.49 Acquired absence of other specified parts of digestive tract; Z88.8 Allergy status to other drugs, medicaments and biological substances; Z98.42 Cataract extraction status, left eye; Z98.41 Cataract extraction status, right eye; Z96.1 Presence of intraocular lens; Z80.0 Family history of malignant neoplasm of digestive organs; Z80.8 Family history of malignant neoplasm of other organs or systems; Z82.3 Family history of stroke; Z82.49 Family history of ischemic heart disease and other diseases of the circulatory system
CPT/HCPCS: 36415; 71046; 80053; 80061; 83735; 83880; 84484; 85025; 85610; 85730; 93005; 93306; 96374; 99283; 99285

== ENCOUNTER 2019-05-15 14:01 | Emergency (ER) | payer MEDICARE ==
[2019-05-15 14:07] VITALS: RESP 18
[2019-05-15 15:16] LABS: Basophils % (A) 0 %; Eosinophils # (A) 0.1 k/uL (0-0.7); Eosinophils % (A) 2 %; HCT 41.1 % (34.0-46.0); HGB 13.5 gm/dL (11.4-16.0); Lymphocytes # (A) 1.1 k/uL (1.0-4.8); Lymphocytes % (A) 18 %; MCHC 32.9 g/dL (31.0-37.0); MCV 94.4 fL (80.0-100.0); Mean Platelet Volume 6.4; Monocytes # (A) 0.6 k/uL (0-1.0); Monocytes % (A) 9 %; Neutrophils # (A) 4.5 k/uL (1.3-7.7); Neutrophils % (A) 69 %; Platelet Count 194 k/uL (150-450); RBC 4.36 m/uL (3.80-5.40); RDW 13.3 % (11.5-15.5); WBC 6.4 k/uL (3.8-10.6)
[2019-05-15 15:25] LABS: Albumin 3.4 g/dL (3.5-5.0); Calcium 9.1 mg/dL (8.4-10.2); Potassium 4.2 mmol/L (3.5-5.1); Total Bilirubin 0.6 mg/dL (0.2-1.3); Total Protein 6.1 g/dL (6.3-8.2)
--- NOTE | 2019-05-15 15:33 | XR ---
EXAMINATION TYPE: XR Hip Complete LT DATE OF EXAM: 05/15/2019 COMPARISON: NONE HISTORY: Pain TECHNIQUE: 2 views FINDINGS: Hip joint space is fairly normal. There is minimal spurring on the femoral head. I see no f racture nor dislocation. Sacroiliac joint appears intact. IMPRESSION: Minimal spurring. No fracture seen.
--- NOTE | 2019-05-15 15:34 | XR ---
EXAMINATION TYPE: XR lumbar spine 2 or 3V DATE OF EXAM: 05/15/2019 COMPARISON: NONE HISTORY: Pain and fall TECHNIQUE: 3 views FINDINGS: There is 7 mm anterior subluxation of L4 in relation L5. There is narrowing of disc spaces from L3 to S1 with vacuum disc and spur formation. There is no compression fracture. Posterior elemen ts are intact. Sacroiliac joints appear normal. IMPRESSION: No fracture. Degenerative first-degree L4-5 spondylolisthesis.
--- NOTE | 2019-05-15 15:35 | ED ---
Recheck HPI - General Chief Complaint: Recheck/Abnormal Lab/Rx Stated Complaint: elevated BP, bilat leg numbness Time Seen by Provider: 05/15/19 14:11 Source: patient Mode of arrival: wheelchair Limitations: no limitations - History of Present Illness Initial Comments: 89-year-old female with extensive past medical history including hypertension presents emergency department for evaluation of tingling sensation from the feet to 6 inches below the knee bilaterally. Patient states this began earlier this afternoon. Patient states that she has been tracking her blood pressure for Dr. Locke and has a scheduled appointment on Friday. Patient states that been adjusting patient's blood pressure medications. Patient states that she had a few elevated blood pressure readings and was taking Catapres as directed. Patient states that after napping she woke up and felt like she tingling from her toes to just below her knee. Patient states she has not week. Denies any headache neck stiffness dizziness. Patient denies any chest pain shortness of b reath nausea abdominal pain patient states she did have a fall at 4:30 AM on May 14 from moving too fast losing her balance. Patient states she felt her left hip. Patient states the sensation is not unilateral. Denies any loss of bowel bladder control urinary retention vaginal numbness numbness between the legs or loss of rectal tone. Patient states that she is not sure if this is from just sitting down to on, or due to a vascular issue patient denies any pelvis or coolness of the extremity but thought it was best she presents emergency department for further evaluation. Remaining review of systems negative patient is coming by her daughter patient appears well signs of acute distress vital signs stable blood pressure within acceptable limits. - Related Data Home Medications Medication Instructions Recorded Confirmed Apixaban [Eliquis] 5 mg PO BID 04/19/17 05/15/19 Ascorbic Acid [Vitamin C] 500 mg PO DAILY 04/19/17 05/15/19 Cholecalciferol [Vitamin D3 (25 3,000 unit PO DAILY 04/19/17 05/15/19 Mcg = 1000 Iu)] glipiZIDE XL [Glucotrol XL] 2.5 mg PO DAILY 04/19/17 05/15/19 Levothyroxine Sodium [Synthroid] 75 mcg PO DAILY 05/26/17 05/15/19 Clopidogrel [Plavix] 75 mg PO DAILY 10/17/18 05/15/19 Estradiol 0.05MG/24Hr Biwkptch 1 patch TRANSDERM SUWE 01/13/19 05/15/19 [Vivelle-Dot 0.05 MG] traMADol HCL [Ultram] 50 mg PO DAILY PRN 01/13/19 05/15/19 Aspirin EC [Ecotrin Low Dose] 81 mg PO DAILY 05/09/19 05/15/19 Atorvastatin [Lipitor] 20 mg PO HS 05/09/19 05/15/19 Isosorbide Mononitrate ER [Imdur] 90 mg PO HS 05/09/19 05/15/19 Melatonin 10 mg PO HS 05/09/19 05/15/19 Spironolactone [Aldactone] 25 mg PO DAILY PRN 05/09/19 05/15/19 cloNIDine HCL [Catapres] 0.2 mg PO TID 05/15/19 05/15/19 Previous Rx's Medication Instructions Recorded Isosorbide Mononitrate ER [Imdur] 60 mg PO DAILY tab.er.24h 01/13/19 Nitroglycerin Sl Tabs [Nitrostat] 0.4 mg PO Q5M PRN #25 tab 01/18/19 Allergies Allergy/AdvReac Type Severity Reaction Status Date / Time JORGITO Inhibitors Allergy Severe Swelling Verified 05/15/19 14:56 cortisone Allergy Severe Rash/Hives, Verified 05/15/19 14:56 high BP Beta-Blockers Allergy Swelling Verified 05/15/19 14:56 (Beta-Adrenergic Bloc hydralazine Allergy Swelling Verified 05/15/19 14:56 Calcium Channel Blocking AdvReac SORES IN Verified 05/15/19 14:56 Agent Dilt MOUTH dust,trees Allergy Unknown Uncoded 05/15/19 14:56 Review of Systems ROS Statement: Those systems with pertinent positive or pertinent negative responses have been documented in the HPI. ROS Other: All systems not noted in ROS Statement are negative. Past Medical History Past Medical History: Atrial Fibrillation, Coronary Artery Disease (CAD), Cancer, Chest Pain / Angina, Diabetes Mellitus, GERD/Reflux, Hyperlipidemia, Hypertension, Osteoarthritis (OA), Sleep Apnea/CPAP/BIPAP, Thyroid Disorder Additional Past Medical History / Comment(s): skin cancer, restless leg syndrome, varicose veins, IBS, History of Any Multi-Drug Resistant Organisms: None Reported Past Surgical History: Adenoidectomy, Appendectomy, Breast Surgery, Cho lecystectomy, Heart Catheterization With Stent, Hysterectomy, Orthopedic Surgery, Pacemaker, Tonsillectomy Additional Past Surgical History / Comment(s): walt cataract, 2 stents, partial thyroidectomy, rt shoulder rotator cuff, walt breast biopsy, metal clip in rt breast Past Anesthesia/Blood Transfusion Reactions: No Reported Reaction Date of Last Stent Placement:: 1998 Type of Cardiac Device: Permanent Pacemaker, Unknown Device Placement Date:: 2014 Past Psychological History: Anxiety, No Psychological Hx Reported Smoking Status: Former smoker Past Alcohol Use History: Occasional Past Drug Use History: None Reported - Past Family History Mother Additional Family Medical History / Comment(s): Mother at age 76 from massive stroke. Brother(s) Additional Family Medical History / Comment(s): The patient had a total of 3 brothers. One brother from melanoma. One brother is with history of coronary artery disease status post CABG. One brother has from colon cancer with history of coronary artery disease. Patient does not have any sisters. Daughter(s) Family Medical History: No Reported History (Healthy 1 daughter) Son(s) History Unknown: Yes (Healthy 3 sons) Additional Family Medical History / Comment(s): Patient has 3 sons and 1 daughter. One son has history of coronary artery disease, second son has history of AICD. Patient has 1 son and 1 daughter with no major medical problems. Father Additional Family Medical History / Comment(s): Father at age 59 from a myocardial infarction. General Exam - General Exam Comments Initial Comments: General: The patient is awake and alert, in no distress, and does not appear acutely ill. Eye: +3 mm pupils are equal, round and reactive to light, extra-ocular movements are intact. No nystagmus. There is normal conjunctiva bilaterally. No signs of icterus. Ears, nose, mouth and throat: There are moist mucous membranes and no oral lesions. Neck: The neck is supple, there is no tenderness or JVD. Cardiovascular: There is a regular rate and rhythm. No murmur, rub or gallop is appreciated. Respiratory: Lungs are clear to auscultation, respirations are non-labored, breath sounds are equal. No wheezes, stridor, rales, or rhonchi. Gastrointestinal: Soft, non-distended, non-tender abdomen without masses or organomegaly noted. There is no rebound or guarding present. Musculoskeletal: Normal ROM, no tenderness. Strength 5/5 of the hips, knees, ankles b/l Sensation intact of the LE b/l pt states feels different above the knee then below but is intact. Saddle region intact. DP pulses equal bilaterally 2+. No coolness, swelling, pallor, masses of the LE. (-) Homans b/l. Neurological: A&O x 3. CN II-XII intact, There are no obvious motor or sensory deficits. Speech is normal. Finger to nose smooth and coordinated. Gait coordinated. Skin: Skin is warm and dry and no rashes or lesions are noted. Psychiatric: Cooperative, appropriate mood & affect, normal judgment. Limitations: no limitations Course Vital Signs 05/15/19 05/15/19 14:04 16:35 Temperature 98.0 F 97.9 F Pulse Rate 57 L 82 Respiratory 18 18 Rate Blood Pressure 129/63 122/73 O2 Sat by Pulse 98 95 Oximetry Medical Decision Making - Medical Decision Making Very well-appearing 89-year-old female presents emergency department for evaluation of elevated blood pressure readings, decrease sensation/paresthesia from the toes to 6 inches below the knee. Upon physical examination patient is no appreciated weakness. Patient has intact sensation however she states this feels subjectively different then the area above her knee. Patient denies any headache dizziness or neurological complaints. Patient is no focal neurological deficits on exam aside from subjective sensation in specific area of the b/ LE. Patient denies any chest pain or shortness of breath. Patient blood pressure controlled upon arrival in the emergency department. She appears well lung and heart examination unremarkable. No swelling of the lower extremities. Patient neurovascularly intact. CT of the brain negative for acute process. No electrolyte derangements. Glucose noted to be elevated. Patient does have history of diabetes. At this time after discussed the case with attending provider refill finding is nonspecific. Patient did have history of recent fall however pattern of bilateral sensation deficit does not appear consistent with left-sided hip pain patient has no midline back pain or signs of cauda equina. Patient refused rectal examination. Patient is able to ambulate without difficulty. At this time Dr. Figueroa recommends discharge [facility] outpatient PCP f/u. Patient is agreeable with care plan. I discussed with patient that this may be early disease course if there is any changes in symptoms worsening symptoms or other concerning signs or features she is to presents emergency department for further evaluation. Patient verbalized understanding patient has currently scheduled appointment with primary care provider on Friday. - Lab Data Result diagrams: 05/15/19 15:00 05/15/19 15:00 Lab Results 05/15/19 05/15/19 05/15/19 Range/Units 15:00 15:00 15:00 WBC 6.4 (3.8-10.6) k/uL RBC 4.36 (3.80-5.40) m/uL Hgb 13.5 (11.4-16.0) gm/dL Hct 41.1 (34.0-46.0) % MCV 94.4 (80.0-100.0) fL MCH 31.0 (25.0-35.0) pg MCHC 32.9 (31.0-37.0) g/dL RDW 13.3 (11.5-15.5) % Plt Count 194 (150-450) k/uL Neutrophils % 69 % Lymphocytes % 18 % Monocytes % 9 % Eosinophils % 2 % Basophils % 0 % Neutrophils # 4.5 (1.3-7.7) k/uL Lymphocytes # 1.1 (1.0-4.8) k/uL Monocytes # 0.6 (0-1.0) k/uL Eosinophils # 0.1 (0-0.7) k/uL Basophils # 0.0 (0-0.2) k/uL Sodium 137 (137-145) mmol/L Potassium 4.2 (3.5-5.1) mmol/L Chloride 104 (98-107) mmol/L Carbon Dioxide 27 (22-30) mmol/L Anion Gap 6 mmol/L BUN 24 H (7-17) mg/dL Creatinine 0.80 (0.52-1.04) mg/dL Est GFR (CKD-EPI)AfAm 77 (>60 ml/min/1.73 sqM) Est GFR (CKD-EPI)NonAf 67 (>60 ml/min/1.73 sqM) Glucose 165 H (74-99) mg/dL Calcium 9.1 (8.4-10.2) mg/dL Total Bilirubin 0.6 (0.2-1.3) mg/dL AST 30 (14-36) U/L ALT 24 (9-52) U/L Alkaline Phosphatase 57 (38-126) U/L Troponin I <0.012 (0.000-0.034) ng/mL Total Protein 6.1 L (6.3-8.2) g/dL Albumin 3.4 L (3.5-5.0) g/dL - EKG Data EKG Comments: Ventricular rate 87 bpm, VT interval 194 ms, QR yazidism 148 ms, QT/QTC 414/498 ms. This is an atrial sensed ventricular paced rhythm there is noted to be occasional PVCs. No ST elevation or depression is appreciated. EKG was personal he interpreted and reviewed by my attending provider Disposition Clinical Impression: Paresthesia of both lower extremities Disposition: HOME SELF-CARE Condition: Good Instructions (If sedation given, give patient instructions): Paresthesia (ED) Additional Instructions: Please use medication as discussed. Please follow-up with family doctor on Friday as scheduled. Please return to emergency room if the symptoms increase or worsen or for any other concerns. Is patient prescribed a controlled substance at d/c from ED?: No Referrals: Karlo Locke MD [Primary Care Provider] - 1-2 days Time of Disposition: 16:04
--- NOTE | 2019-05-15 15:50 | CT ---
EXAMINATION TYPE: CT brain wo con DATE OF EXAM: 05/15/2019 COMPARISON: 01/17/2017 HISTORY: Bilateral leg numbness CT DLP: 1086.4 mGycm Automated exposure control for dose reduction was used. FINDINGS: There is cerebral cortical atrophy. There is no mass effect nor midline shift. There is no sign of in tracranial hemorrhage. The calvarium is intact. There is no sign of cortical edema. IMPRESSION: CEREBRAL ATROPHY. NO ACUTE INTRACRANIAL ABNORMALITY. NO CHANGE.
[2019-05-15 16:37] VITALS: BP 122/73; PULSE 82; TEMP 97.9
== END 2019-05-15 16:36 | disposition home or self-care (01) ==
LOC: EC 14:01
DX: R20.2 Paresthesia of skin (principal); E11.65 Type 2 diabetes mellitus with hyperglycemia; I10 Essential (primary) hypertension; J30.89 Other allergic rhinitis; I48.91 Unspecified atrial fibrillation; I25.119 Atherosclerotic heart disease of native coronary artery with unspecified angina pectoris; E78.5 Hyperlipidemia, unspecified; E07.9 Disorder of thyroid, unspecified; M19.90 Unspecified osteoarthritis, unspecified site; G47.30 Sleep apnea, unspecified; F41.9 Anxiety disorder, unspecified; G25.81 Restless legs syndrome; K21.9 Gastro-esophageal reflux disease without esophagitis; K58.9 Irritable bowel syndrome, unspecified; Z79.01 Long term (current) use of anticoagulants; Z79.82 Long term (current) use of aspirin; Z79.84 Long term (current) use of oral hypoglycemic drugs; Z79.890 Hormone replacement therapy; Z79.02 Long term (current) use of antithrombotics/antiplatelets; Z79.899 Other long term (current) drug therapy; Z88.8 Allergy status to other drugs, medicaments and biological substances; Z91.048 Other nonmedicinal substance allergy status; Z85.828 Personal history of other malignant neoplasm of skin; Z95.0 Presence of cardiac pacemaker; Z95.5 Presence of coronary angioplasty implant and graft; Z87.891 Personal history of nicotine dependence; Z86.79 Personal history of other diseases of the circulatory system; Z90.89 Acquired absence of other organs
CPT/HCPCS: 36415; 70450; 72100; 73502; 80053; 84484; 85025; 93005; 99284

== ENCOUNTER 2019-09-17 13:59 | Inpatient (IN) | payer MEDICARE ==
[2019-09-17] MEDS ORDERED: ASPIRIN 81 MG PO STA (14:26)
[2019-09-17] MEDS ORDERED: NITROGLYCERIN OINT 1 INCH/GM PACKET TOPICAL STA (14:26)
--- NOTE | 2019-09-17 14:30 | ED ---
General Adult HPI - General Chief complaint: Chest Pain Stated complaint: chest pain Time Seen by Provider: 09/17/19 14:00 Source: patient, RN notes reviewed, old records reviewed Mode of arrival: wheelchair Limitations: no limitations - History of Present Illness Initial comments: This is an 89-year-old female presents emergency department past medical history significant for coronary artery disease with stent placement. Patient also has diabetes hypertension high cholesterol. Patient comes in today stating she had chest pain this morning she took a nitroglycerin she had temporary relief but the pain returned. Patient states the pain was in her left side of her chest and radiated to her arm. Patient states she's also short of breath and felt sweaty. Patient denies any nausea. Patient denies any abdominal pain patient denies nausea vomiting diarrhea. Patient denies any lightheadedness or dizziness. Patient denies any headache patient denies numbness weakness. Patient denies any swelling to legs or calf tenderness. - Related Data Home Medications Medication Instructions Recorded Confirmed Apixaban [Eliquis] 5 mg PO BID 04/19/17 05/15/19 Ascorbic Acid [Vitamin C] 500 mg PO DAILY 04/19/17 05/15/19 Cholecalciferol [Vitamin D3 (25 3,000 unit PO DAILY 04/19/17 05/15/19 Mcg = 1000 Iu)] glipiZIDE XL [Glucotrol XL] 2.5 mg PO DAILY 04/19/17 05/15/19 Levothyroxine Sodium [Synthroid] 75 mcg PO DAILY 05/26/17 05/15/19 Clopidogrel [Plavix] 75 mg PO DAILY 10/17/18 05/15/19 Estradiol 0.05MG/24Hr Biwkptch 1 patch TRANSDERM SUWE 01/13/19 05/15/19 [Vivelle-Dot 0.05 MG] traMADol HCL [Ultram] 50 mg PO DAILY PRN 01/13/19 05/15/19 Aspirin EC [Ecotrin Low Dose] 81 mg PO DAILY 05/09/19 05/15/19 Atorvastatin [Lipitor] 20 mg PO HS 05/09/19 05/15/19 Isosorbide Mononitrate ER [Imdur] 90 mg PO HS 05/09/19 05/15/19 Melatonin 10 mg PO HS 05/09/19 05/15/19 Spironolactone [Aldactone] 25 mg PO DAILY PRN 05/09/19 05/15/19 cloNIDine HCL [Catapres] 0.2 mg PO TID 05/15/19 05/15/19 Previous Rx's Medication Instructions Recorded Isosorbide Mononitrate ER [Imdur] 60 mg PO DAILY tab.er.24h 01/13/19 Nitroglycerin Sl Tabs [Nitrostat] 0.4 mg PO Q5M PRN #25 tab 01/18/19 Allergies Allergy/AdvReac Type Severity Reaction Status Date / Time JORGITO Inhibitors Allergy Severe Swelling Verified 09/17/19 14:05 cortisone Allergy Severe Rash/Hives, Verified 09/17/19 14:05 high BP Beta-Blockers Allergy Swelling Verified 09/17/19 14:05 (Beta-Adrenergic Bloc hydralazine Allergy Swelling Verified 09/17/19 14:05 Calcium Channel Blocking AdvReac SORES IN Verified 09/17/19 14:05 Agent Dilt MOUTH dust,trees Allergy Unknown Uncoded 09/17/19 14:05 Review of Systems ROS Statement: Those systems with pertinent positive or pertinent negative responses have been documented in the HPI. ROS Other: All systems not noted in ROS Statement are negative. Past Medical History Past Medical History: Atrial Fibrillation, Coronary Artery Disease (CAD), Cancer, Chest Pain / Angina, Diabetes Mellitus, GERD/Reflux, Hyperlipidemia, Hypertension, Osteoarthritis (OA), Sleep Apnea/CPAP/BIPAP, Thyroid Disorder Additional Past Medical History / Comment(s): skin cancer, restless leg syndrome, varicose veins, IBS, History of Any Multi-Drug Resistant Organisms: None Reported Past Surgical History: Adenoidectomy, Appendectomy, Breast Surgery, Cholecystectomy, Heart Catheterization With Stent, Hysterectomy, Orthopedic Surgery, Pacemaker, Tonsillectomy Additional Past Surgical History / Comment(s): walt cataract, 2 stents, partial thyroidectomy, rt shoulder rotator cuff, walt breast biopsy, metal clip in rt breast Past Anesthesia/Blood Transfusion Reactions: No Reported Reaction Date of Last Stent Placement:: 1998 Type of Cardiac Device: Permanent Pacemaker, Unknown Device Placement Date:: 2014 Past Psychological History: Anxiety Smoking Status: Former smoker Past Alcohol Use History: Occasional Past Drug Use History: None Reported - Past Family History Mother Additional Family Medical History / Comment(s): Mother at age 76 from massive stroke. Brother(s) Additional Family Medical History / Comment(s): The patient had a total of 3 brothers. One brother from melanoma. One brother is with history of coronary artery disease status post CABG. One brother has from colon cancer with history of coronary artery disease. Patient does not have any sisters. Daughter(s) Family Medical History: No Reported History (Healthy 1 daughter) Son(s) History Unknown: Yes (Healthy 3 sons) Additional Family Medical History / Comment(s): Patient has 3 sons and 1 daughter. One son has history of coronary artery disease, second son has history of AICD. Patient has 1 son and 1 daughter with no major medical problems. Father Additional Family Medical History / Comment(s): Father at age 59 from a myocardial infarction. General Exam - General Exam Comments Initial Comments: GENERAL: Patient is well-developed and well-nourished. Patient is nontoxic and well- hydrated and is in mild distress. ENT: Neck is soft and supple. No significant lymphadenopathy is noted. Oropharynx is clear. Moist mucous membranes. Neck has full range of motion without eliciting any pain. EYES: The sclera were anicteric and conjunctiva were pink and moist. Extraocular movements were intact and pupils were equal round and reactive to light. Eyelids were unremarkable. PULMONARY: Unlabored respirations. Good breath sounds bilaterally. No audible rales rhonchi or wheezing was noted. CARDIOVASCULAR: There is a regular rate and rhythm without any murmurs gallops or rubs. ABDOMEN: Soft and nontender with normal bowel sounds. SKIN: Skin is clear with no lesions or rashes and otherwise unremarkable. NEUROLOGIC: Patient is alert and oriented x3. Cranial nerves II through XII are grossly intact. Motor and sensory are also intact. Normal speech, volume and content. Symmetrical smile. MUSCULOSKELETAL: Normal extremities with adequate strength and full range of motion. No lower extremity swelling or edema. No calf tenderness. LYMPHATICS: No significant lymphadenopathy is noted PSYCHIATRIC: Normal psychiatric evaluation. Limitations: no limitations Course Vital Signs 09/17/19 09/17/19 09/17/19 14:03 14:50 15:30 Temperature 97.8 F Pulse Rate 58 L 88 Pulse Rate [ 102 H Ic Designer Custom ] Respiratory 18 17 Rate Blood Pressure 192/76 144/71 O2 Sat by Pulse 96 94 L Oximetry 09/17/19 16:00 Temperature Pulse Rate 90 Pulse Rate [ Ic Designer Custom ] Respiratory 20 Rate Blood Pressure 164/79 O2 Sat by Pulse 95 Oximetry Medical Decision Making - Medical Decision Making EKG shows a paced rhythm at 79 bpm QRS 166 QT interval is 428 QTC is 490. Chest x-ray shows no acute abnormality. Patient states that the Nitropaste she is pain-free. Patient also states she takes eliquis and aspirin. I spoke with Dr. Prasad he agreed to admit the patient admitted the patient wrote admitting orders. - Lab Data Result diagrams: 09/17/19 14:27 09/17/19 14:27 Lab Results 09/17/19 09/17/19 09/17/19 Range/Units 14:26 14:27 14:27 WBC 10.4 (3.8-10.6) k/uL RBC 4.94 (3.80-5.40) m/uL Hgb 15.3 (11.4-16.0) gm/dL Hct 46.0 (34.0-46.0) % MCV 93.1 (80.0-100.0) fL MCH 30.9 (25.0-35.0) pg MCHC 33.2 (31.0-37.0) g/dL RDW 13.3 (11.5-15.5) % Plt Count 216 (150-450) k/uL Neutrophils % 74 % Lymphocytes % 13 % Monocytes % 9 % Eosinophils % 1 % Basophils % 1 % Neutrophils # 7.6 (1.3-7.7) k/uL Lymphocytes # 1.3 (1.0-4.8) k/uL Monocytes # 0.9 (0-1.0) k/uL Eosinophils # 0.1 (0-0.7) k/uL Basophils # 0.1 (0-0.2) k/uL PT 9.5 (9.0-12.0) sec INR 0.9 (<1.2) APTT 23.6 (22.0-30.0) sec Sodium 136 L (137-145) mmol/L Potassium 4.4 (3.5-5.1) mmol/L Chloride 99 (98-107) mmol/L Carbon Dioxide 29 (22-30) mmol/L Anion Gap 8 mmol/L BUN 24 H (7-17) mg/dL Creatinine 0.83 (0.52-1.04) mg/dL Est GFR (CKD-EPI)AfAm 74 (>60 ml/min/1.73 sqM) Est GFR (CKD-EPI)NonAf 64 (>60 ml/min/1.73 sqM) Glucose 211 H (74-99) mg/dL Calcium 9.6 (8.4-10.2) mg/dL Magnesium 1.9 (1.6-2.3) mg/dL Total Bilirubin 0.6 (0.2-1.3) mg/dL AST 24 (14-36) U/L ALT 17 (4-34) U/L Alkaline Phosphatase 83 (38-126) U/L Troponin I (0.000-0.034) ng/mL Total Protein 6.8 (6.3-8.2) g/dL Albumin 3.8 (3.5-5.0) g/dL 09/17/19 Range/Units 14:27 WBC (3.8-10.6) k/uL RBC (3.80-5.40) m/uL Hgb (11.4-16.0) gm/dL Hct (34.0-46.0) % MCV (80.0-100.0) fL MCH (25.0-35.0) pg MCHC (31.0-37.0) g/dL RDW (11.5-15.5) % Plt Count (150-450) k/uL Neutrophils % % Lymphocytes % % Monocytes % % Eosinophils % % Basophils % % Neutrophils # (1.3-7.7) k/uL Lymphocytes # (1.0-4.8) k/uL Monocytes # (0-1.0) k/uL Eosinophils # (0-0.7) k/uL Basophils # (0-0.2) k/uL PT (9.0-12.0) sec INR (<1.2) APTT (22.0-30.0) sec Sodium (137-145) mmol/L Potassium (3.5-5.1) mmol/L Chloride (98-107) mmol/L Carbon Dioxide (22-30) mmol/L Anion Gap mmol/L BUN (7-17) mg/dL Creatinine (0.52-1.04) mg/dL Est GFR (CKD-EPI)AfAm (>60 ml/min/1.73 sqM) Est GFR (CKD-EPI)NonAf (>60 ml/min/1.73 sqM) Glucose (74-99) mg/dL Calcium (8.4-10.2) mg/dL Magnesium (1.6-2.3) mg/dL Total Bilirubin (0.2-1.3) mg/dL AST (14-36) U/L ALT (4-34) U/L Alkaline Phosphatase (38-126) U/L Troponin I 0.013 (0.000-0.034) ng/mL Total Protein (6.3-8.2) g/dL Albumin (3.5-5.0) g/dL Disposition Clinical Impression: Unstable angina Disposition: ADMITTED IP TO THIS [facility] Referrals: Karlo Locke MD [Primary Care Provider] - 1-2 days Time of Disposition: 16:35
[2019-09-17 14:55] LABS: Basophils # (A) 0.1 k/uL (0-0.2); Basophils % (A) 1 %; Eosinophils # (A) 0.1 k/uL (0-0.7); Eosinophils % (A) 1 %; HGB 15.3 gm/dL (11.4-16.0); Lymphocytes # (A) 1.3 k/uL (1.0-4.8); Lymphocytes % (A) 13 %; MCH 30.9 pg (25.0-35.0); MCHC 33.2 g/dL (31.0-37.0); MCV 93.1 fL (80.0-100.0); Mean Platelet Volume 8.1; Monocytes # (A) 0.9 k/uL (0-1.0); Monocytes % (A) 9 %; Neutrophils # (A) 7.6 k/uL (1.3-7.7); Neutrophils % (A) 74 %; Platelet Count 216 k/uL (150-450); RBC 4.94 m/uL (3.80-5.40); RDW 13.3 % (11.5-15.5); WBC 10.4 k/uL (3.8-10.6)
[2019-09-17 15:05] LABS: INR 0.9 (<1.2); Partial Thromboplastin Time 23.6 sec (22.0-30.0); Prothrombin Time 9.5 sec (9.0-12.0)
[2019-09-17 15:05] LABS: Albumin 3.8 g/dL (3.5-5.0); Calcium 9.6 mg/dL (8.4-10.2); Magnesium 1.9 mg/dL (1.6-2.3); Potassium 4.4 mmol/L (3.5-5.1); Total Bilirubin 0.6 mg/dL (0.2-1.3); Total Protein 6.8 g/dL (6.3-8.2)
--- NOTE | 2019-09-17 15:26 | XR ---
EXAMINATION TYPE: XR chest 2V DATE OF EXAM: 09/17/2019 COMPARISON: 05/11/2019 INDICATION: Chest pain TECHNIQUE: Frontal and lateral views of the chest are obtained. FINDINGS: The heart size is normal. The pulmonary vasculature is normal. The lungs are clear. Pacemaker overlies left chest. Multiple EKG leads overlie the lung bases. This may be obscuring mild infiltrate at the right base. C orrelation is recommended. Repeat frontal chest performed. IMPRESSION: 1. No obvious acute pulmonary process is not identified. There multiple EKG leads overlie the right l grace base which potentially could be obscuring the small or early infiltrate. Clinical correlation is recommended. Repeat frontal chest performed.
[2019-09-17] MEDS ORDERED: ACETAMINOPHEN TAB 325 MG TAB PO STA (16:22)
[2019-09-17] MEDS ORDERED: cloNIDine HCL 0.1 MG TAB PO STA (16:22)
[2019-09-17] MEDS ORDERED: NITROGLYCERIN SL TABS 0.4 MG TAB SUBLINGUAL PRN ×2 (16:35→22:05)
[2019-09-17] MEDS: NITROGLYCERIN OINT 1 INCH/GM PACKET TOPICAL SCH ×2 (22:12→22:55)
[2019-09-17] MEDS: ATORVASTATIN 20 MG TAB PO SCH (22:48)
[2019-09-17] MEDS: APIXABAN 5 MG TAB PO SCH (22:48)
[2019-09-17] MEDS: MELATONIN 5 MG TABLET PO SCH (22:51)
[2019-09-17] MEDS: hydrALAZINE HCL 50 MG TAB PO SCH (22:52)
[2019-09-17] MEDS: diphenhydrAMINE 25 MG CAP PO SCH (22:53)
[2019-09-18] MEDS: cloNIDine HCL 0.1 MG TAB PO PRN ×2 (01:40→23:09)
[2019-09-18] MEDS: ALPRAZolam 0.25 MG TAB PO PRN ×2 (03:11→23:09)
[2019-09-18] MEDS: LEVOTHYROXINE 75 MCG TAB PO SCH (05:21)
[2019-09-18] MEDS: NITROGLYCERIN OINT 1 INCH/GM PACKET TOPICAL SCH ×4 (05:21→23:09)
[2019-09-18] MEDS: traMADol 50 MG TAB PO PRN ×2 (05:21→20:22)
[2019-09-18 06:07] LABS: Cholesterol 144 mg/dL (<200); HDL Cholesterol 39 mg/dL (40-60); LDL Cholesterol,Calculated 77 mg/dL (0-99); Triglycerides 139 mg/dL (<150)
[2019-09-18 06:17] LABS: Glucose,Whole Blood 137 mg/dL (75-99)
[2019-09-18] MEDS ORDERED: ASPIRIN 325 MG TAB PO SCH (09:00)
[2019-09-18] MEDS ORDERED: SPIRONOLACTONE 25 MG TAB PO PRN (09:00)
[2019-09-18] MEDS: APIXABAN 5 MG TAB PO SCH ×2 (11:20→19:31)
[2019-09-18] MEDS: ASPIRIN 81 MG PO SCH (11:20)
[2019-09-18] MEDS: hydrALAZINE HCL 50 MG TAB PO SCH ×2 (11:22→19:31)
[2019-09-18] MEDS: MECLIZINE 25 MG TAB PO SCH ×2 (11:23→19:34)
[2019-09-18 11:27] LABS: Glucose,Whole Blood 170 mg/dL (75-99)
--- NOTE | 2019-09-18 12:53 | CONS ---
CONSULTATION CHIEF COMPLAINT: Chest pain. Liliana is an 89-year-old lady with history of coronary artery disease, status post prior multiple angioplasties, status post permanent pacemaker, paroxysmal atrial fibrillation, hypertension, diabetes, dyslipidemia, who presented to hospital complaining of chest pain. She describes it as a precordial chest pressure, mild intensity, intermittent, associated with some shortness of breath. Her troponin on her initial presentation was normal. Subsequent troponin came back elevated at 0.06 and 0.04. At the time of my evaluation this morning, she is pain-free and hemodynamically stable. Her EKG shows paced rhythm. Chest x-ray is within normal limits. Patient ruled in for myocardial infarction and I advised her to undergo cardiac catheterization. She had a similar presentation in May of last year and she states that she did not have a cardiac catheterization. She was advised workup at that time too. She follows with a mixer wet pour at [facility] and wishes to pursue her care . I explained to the patient that the ideal thing to do at this time is to do invasive angiography on her to figure out what is going on with her so that we can offer her catheter based revascularization. PAST MEDICAL HISTORY: Significant for paroxysmal atrial fibrillation, permanent pacemaker, CAD, status post angioplasty, diabetes and dyslipidemia. CURRENT MEDICATIONS: Current medications include Imdur 90 q. daily, Apresoline 100 t.i.d., Catapres 0.2 mg patch, Xanax, Ultram, Aldactone, Synthroid, Glucotrol, Lipitor, aspirin, Eliquis, and Lopressor. ALLERGIES: Allergies as documented. FAMILY HISTORY: Negative for premature coronary artery disease. SOCIAL HISTORY: Negative for current smoking, EtOH abuse, or drug abuse. REVIEW OF SYSTEMS: HEENT is unremarkable. CARDIAC: As described above. RESPIRATORY: As described above. GI: Negative. GENITOURINARY: Negative. ALLERGY/IMMUNOLOGY: Negative. SKIN: Negative. MUSCULOSKELETAL: Negative. ENDOCRINE: Negative. DERM: Negative. CONSTITUTIONAL: Negative. ONCOLOGICAL: Negative. BLOCK ENGRAVER: Negative. Rest of the system review is not relevant. PHYSICAL EXAMINATION: On exam, patient is comfortable at rest. Blood pressure is elevated at 179/74, respiratory rate is 18. There is no jugular venous distention. Carotid upstroke is normal. There is no bruit. Chest exam reveals good air entry bilaterally. Heart exam reveals first and second heart sounds and ejection systolic murmur in the aortic area. Abdomen is soft. Exam of extremities did not reveal any edema. Peripheral pulses are felt. BLOCK ENGRAVER exam did not reveal focal neurological deficits. ASSESSMENT: 1. Acute non ST-segment elevation myocardial infarction. 2. Paroxysmal atrial fibrillation. 3. Uncontrolled hypertension. 4. Status post permanent pacemaker. PLAN: Patient will be treated with optimal medical therapy as per patient's wishes, control the blood pressure, increase the dose of Catapres to 0.3 mg patch. If she is symptom- free, we will discharge her home tomorrow and arrange outpatient followup with her own mixer wet pour. ERIC / FRANCESCAN: [id number] /
[2019-09-18] MEDS ORDERED: cloNIDine 0.3 MG/24HR PATCH TRANSDERM SCH (13:00)
--- NOTE | 2019-09-18 16:04 | P.HPIM ---
History of Present Illness H&P Date: 09/18/19 Chief Complaint: chest pain This is ant 89-year-old female patient of Dr. Locke and who follows with a helmet hat brim cutter at [facility]. She has a past medical history of coronary artery disease with prior stent placements, the most recent stent was placed in April 2018 according to the patient, hypertension, hyperlipidemia, diabetes mellitus type II, GERD, obstructive sleep apnea, history of permanent pacemaker, paroxysmal atrial fibrillation, hypothyroidism. She had most recent hospitalization in May at which time she presented with chest pain and patient was cleared by cardiology follow-up with her primary helmet hat brim cutter at that time. Patient now gives history of having difficulty breathing with chest pain that was midsternal rating all the way across her chest but not involving her jaw or arms. She states it was present when she woke in the morning. She took nitroglycerin which seemed to help but the pain came back later and she had 3 episodes of which she was taking nitroglycerin with improvement. She also states that her blood pressure was extremely high at home until up calling her son to bring her into the hospital for evaluation. Echocardiogram from May 2019 revealed EF 50-55% with mild concentric left ventricular hypertrophy, mild mitral regurgitation, mild tricuspid regurgitation, no pulmonary hypertension. Patient was admitted to the cardiac stepdown unit and seen in consultation by cardiology. Patient has been ruled in for non-ST elevated myocardial infarction. Troponins were 0.013, 0.064, 0.047. Triglycerides 139, cholesterol 144, LDL 77, HDL 39. CBC was normal, BUN 24 and creatinine 0.83, sodium 136. Patient was afebrile with heart rate of 58 initially with a blood pressure of 1 92/76, pulse ox 96% on room air. Patient has contacted her helmet hat brim cutter Dr. Glaser and plan is for patient to be discharged most likely tomorrow and call on Friday to set up an appointment for further testing. Patient denies having any chest pain at this time, no lower extremity edema, no blood or tarry stools. Review Of Systems: Constitutional: No fever, no chills, no night sweats. No weight change. No weakness, fatigue or lethargy. No daytime sleepiness. EENT: No headache. No blurred vision or double vision, no loss of vision. No loss of Hearing, no ringing in the ears, reports dizziness. No nasal drainage or congestion. No epistaxis. No sore throat. Lungs: Reports shortness of breath, cough, no sputum production. No wheezing. Cardiovascular: Reports chest pain, no lower extremity edema. No palpitations. No paroxysmal nocturnal dyspnea. No orthopnea. No lightheadedness or dizziness. No syncopal episodes. Abdominal: No abdominal pain. No nausea, vomiting. No diarrhea. No constipation. No bloody or tarry stools.. No loss of appetite. Genitourinary: No dysuria, increased frequency, urgency. No urinary retention. Musculoskeletal: No myalgias. No muscle weakness, no gait dysfunction, no frequent falls. No back pain. No neck pain. Integumentary: No wounds, no lesions. No rash or pruritus. No unusual bruising. No change in hair or nails. Neurologic: No aphasia. No facial droop. No change in mentation. No head injury. No headache. No paralysis. No paresthesia. Psychiatric: No depression. No anxiety. No mood swings. Endocrine: No abnormal blood sugars. No weight change. No excessive sweating or thirst. No cold intolerance. Past Medical History Past Medical History: Atrial Fibrillation, Coronary Artery Disease (CAD), Cancer, Chest Pain / Angina, Diabetes Mellitus, GERD/Reflux, Hyperlipidemia, Hypertension, Osteoarthritis (OA), Sleep Apnea/CPAP/BIPAP, Thyroid Disorder Additional Past Medical History / Comment(s): skin cancer, restless leg syndrome, varicose veins, IBS, History of Any Multi-Drug Resistant Organisms: None Reported Past Surgical History: Adenoidectomy, Appendectomy, Breast Surgery, Cholecystectomy, Heart Catheterization With Stent, Hysterectomy, Orthopedic Surgery, Pacemaker, Tonsillectomy Additional Past Surgical History / Comment(s): walt cataract, 2 stents, partial thyroidectomy, rt shoulder rotator cuff, walt breast biopsy, metal clip in rt breast Past Anesthesia/Blood Transfusion Reactions: No Reported Reaction Date of Last Stent Placement:: 1998 Type of Cardiac Device: Permanent Pacemaker, Unknown Device Placement Date:: 2014 Past Psychological History: Anxiety Smoking Status: Former smoker Past Alcohol Use History: Occasional Additional Past Alcohol Use History / Comment(s): The patient was a smoker briefly as a kid. She drinks alcohol occasionally. Past Drug Use History: None Reported - Past Family History Mother Additional Family Medical History / Comment(s): Mother at age 76 from massive stroke. Brother(s) Additional Family Medical History / Comment(s): The patient had a total of 3 brothers. One brother from melanoma. One brother is with history of coronary artery disease status post CABG. One brother has from colon cancer with history of coronary artery disease. Patient does not have any sisters. Daughter(s) Family Medical History: No Reported History (Healthy 1 daughter) Son(s) History Unknown: Yes (Healthy 3 sons) Additional Family Medical History / Comment(s): Patient has 3 sons and 1 daughter. One son has history of coronary artery disease, second son has history of AICD. Patient has 1 son and 1 daughter with no major medical problems. Father Additional Family Medical History / Comment(s): Father at age 59 from a myocardial infarction. Medications and Allergies Home Medications Medication Instructions Recorded Confirmed Type Apixaban [Eliquis] 5 mg PO BID 04/19/17 09/17/19 History Ascorbic Acid [Vitamin C] 500 mg PO DAILY PRN 04/19/17 09/17/19 History Cholecalciferol [Vitamin D3 (25 3,000 unit PO DAILY 04/19/17 09/17/19 History Mcg = 1000 Iu)] glipiZIDE XL [Glucotrol XL] 2.5 mg PO DAILY 04/19/17 09/17/19 History Levothyroxine Sodium [Synthroid] 75 mcg PO DAILY 05/26/17 09/17/19 History Estradiol 0.05MG/24Hr Biwkptch 1 patch TRANSDERM SUWE 01/13/19 09/17/19 History [Vivelle-Dot 0.05 MG] Isosorbide Mononitrate ER [Imdur] 60 mg PO DAILY tab.er.24h 01/13/19 09/17/19 Rx traMADol HCL [Ultram] 50 mg PO BID PRN 01/13/19 09/17/19 History Nitroglycerin Sl Tabs [Nitrostat] 0.4 mg PO Q5M PRN #25 tab 01/18/19 09/17/19 Rx Aspirin EC [Ecotrin Low Dose] 81 mg PO DAILY 05/09/19 09/17/19 History Atorvastatin [Lipitor] 20 mg PO HS 05/09/19 09/17/19 History Isosorbide Mononitrate ER [Imdur] 90 mg PO HS 05/09/19 09/17/19 History Melatonin 10 mg PO HS 05/09/19 09/17/19 History Spironolactone [Aldactone] 25 mg PO DAILY PRN 05/09/19 09/17/19 History ALPRAZolam [Xanax] 0.25 mg PO BID PRN 09/17/19 09/17/19 History cloNIDine 0.2 MG/24HR PATCH 1 patch TRANSDERM TU 09/17/19 09/17/19 History [Catapres-TTS] cloNIDine HCL [Catapres] 0.1 mg PO BID PRN 09/17/19 09/17/19 History diphenhydrAMINE HCL [Benadryl] 25 mg PO 09/17/19 09/17/19 History hydrALAZINE HCL [Apresoline] 100 mg PO TID 09/17/19 09/18/19 History Metoprolol Tartrate [Lopressor] 50 mg PO QID 09/18/19 09/18/19 History Allergies Allergy/AdvReac Type Severity Reaction Status Date / Time JORGITO Inhibitors Allergy Severe Swelling Verified 09/17/19 18:49 cortisone Allergy Severe Rash/Hives, Verified 09/17/19 18:49 high BP hydralazine Allergy Swelling Verified 09/18/19 11:44 Calcium Channel Blocking AdvReac SORES IN Verified 09/17/19 18:49 Agent Dilt MOUTH dust,trees Allergy Unknown Uncoded 09/17/19 14:05 Physical Exam Vitals: Vital Signs Temp Pulse Pulse Resp BP BP Pulse Ox 09/18/19 12:00 98 F 71 16 169/74 97 09/18/19 08:00 98.1 F 80 18 148/72 94 L 09/18/19 03:03 97.6 F 84 18 160/78 98 09/18/19 01:35 164/86 09/17/19 23:07 85 18 132/80 96 09/17/19 20:00 74 18 133/66 96 09/17/19 19:25 97.4 F L 81 18 136/81 98 09/17/19 19:00 80 122/68 97 09/17/19 17:30 83 20 143/76 89 L 09/17/19 16:30 99 155/73 09/17/19 16:00 90 20 164/79 95 Intake and Output 09/18/19 09/18/19 09/18/19 06:59 14:59 22:59 Other: # Voids 1 3 # Bowel Movements 1 Weight 81.1 kg Gen: This is an 89-year-old female. Patient is sitting in recliner an d appears to be in no acute distress. She denies any shortness of breath, difficulty swallowing. HEENT: Head is atraumatic, normocephalic. Pupils equal, round. Sclerae is anicteric. NECK: Supple. No JVD. No lymphadenopathy. No thyromegaly. LUNGS: Clear to auscultation. No wheezes or rhonchi. No intercostal retractions. HEART: Regular rate and rhythm. Systolic murmur. ABDOMEN: Soft. Bowel sounds are present. No masses. No tenderness. EXTREMITIES: No pedal edema. No calf tenderness. NEUROLOGICAL: Patient is awake, alert and oriented x3. Cranial nerves 2 through 12 are grossly intact. Results CBC & Chem 7: 09/17/19 14:27 09/17/19 14:27 Labs: Abnormal Lab Results - Last 24 Hours (Table) 09/17/19 09/18/19 09/18/19 Range/Units 20:35 02:43 02:43 POC Glucose (mg/dL) (75-99) mg/dL Troponin I 0.064 H* 0.047 H* (0.000-0.034) ng/mL HDL Cholesterol 39 L (40-60) mg/dL 09/18/19 09/18/19 Range/Units 06:16 11:22 POC Glucose (mg/dL) 137 H 170 H (75-99) mg/dL Troponin I (0.000-0.034) ng/mL HDL Cholesterol (40-60) mg/dL Thrombosis Risk Factor Assmnt - Choose All That Apply Any of the Below Risk Factors Present?: Yes Each Factor Represents 1 point: Obesity (BMI >25) Other Risk Factors: Yes Each Risk Factor Represents 3 Points: Age 75 years or older Thrombosis Risk Factor Assessment Total Risk Factor Score: 4 Thrombosis Risk Factor Assessment Level: Moderate Risk Assessment and Plan Plan: 1. Non-ST elevated myocardial infarction. Continue aspirin 81 mg daily, Lipitor 20 mg daily, Catapres patch increased to 0.3 mg per cardiology, continue Imdur 90 mg at bedtime which has been increased. 2. Uncontrolled hypertension. Catapres increased to 0.3 mg per cardiology 3. History of coronary artery disease with prior stent placements, [facility]. Continue as in #1. 4. Paroxysmal atrial fibrillation on eliquis. 5. Hypertension. Continue Catapres patch, hydralazine 150 mg twice daily, Imdur, Aldactone. 6. Hyperlipidemia. Continue statin. 7. Diabetes mellitus type 2. Continue glipizide 2.5 mg daily. 8. Obstructive sleep apnea. 9. Hypothyroidism. Continue levothyroxine 75 g daily Patient will be admitted to the hospital for a minimum of 2 night stay. Discharge plan: home Impression and plan of care have been directed as dictated by the signing physician. Tereza Arnett nurse practitioner acting as scribe for signing physician.
[2019-09-18 16:38] LABS: Glucose,Whole Blood 87 mg/dL (75-99)
[2019-09-18] MEDS: diphenhydrAMINE 25 MG CAP PO SCH (19:31)
[2019-09-18] MEDS: ATORVASTATIN 20 MG TAB PO SCH (19:31)
[2019-09-18] MEDS: MELATONIN 5 MG TABLET PO SCH (19:32)
[2019-09-18 20:44] LABS: Glucose,Whole Blood 210 mg/dL (75-99)
[2019-09-18] MEDS ORDERED: ISOSORBIDE MONONITRATE ER 30 MG TAB.ER.24H PO SCH (21:00)
[2019-09-19] MEDS: LEVOTHYROXINE 75 MCG TAB PO SCH (06:04)
[2019-09-19] MEDS: NITROGLYCERIN OINT 1 INCH/GM PACKET TOPICAL SCH ×2 (06:04→11:44)
[2019-09-19 06:11] LABS: Glucose,Whole Blood 158 mg/dL (75-99)
--- NOTE | 2019-09-19 07:37 | P.PN ---
Subjective Progress Note Date: 09/19/19 This is ant 89-year-old female patient of Dr. Locke and who follows with a tar worker at [facility], Malou Noel. She has a past medical history of coronary artery disease with prior stent placements, the most recent stent was placed in April 2018 according to the patient, hyp ertension, hyperlipidemia, diabetes mellitus type II, GERD, obstructive sleep apnea, history of permanent pacemaker, paroxysmal atrial fibrillation, hypothyroidism. She had most recent hospitalization in May at which time she presented with chest pain and patient was cleared by cardiology follow-up with her primary tar worker at that time. Patient now gives history of having difficulty breathing with chest pain that was midsternal rating all the way across her chest but not involving her jaw or arms. She states it was present when she woke in the morning. She took nitroglycerin which seemed to help but the pain came back later and she had 3 episodes of which she was taking nitrogly cerin with improvement. She also states that her blood pressure was extremely high at home until up calling her son to bring her into the hospital for evaluation. Echocardiogram from May 2019 revealed EF 50-55% with mild concentric left ventricular hypertrophy, mild mitral regurgitation, mild t ricuspid regurgitation, no pulmonary hypertension. Patient was admitted to the cardiac stepdown unit and seen in consultation by cardiology. Patient has been ruled in for non-ST elevated myocardial infarction. Troponins were 0.013, 0.064, 0.047. Triglycerides 139, cholesterol 144, LDL 77, HDL 39. CBC was normal, BUN 24 and creatinine 0.83, sodium 136. Patient was afebrile with heart rate of 58 initially with a blood pressure of 192/76, pulse ox 96% on room air. Patient has contacted her tar worker Dr. Noel and plan is for patient to be discharged most likely tomorrow and call on Friday to set up an appointment for further testing. Patient denies having any chest pain at this time, no lower extremity edema, no blood or tarry stools. 09/19: Patient is seen today in recheck. She denies having any chest pain. She states she does have some exertional shortness of breath which she has had since May without change. She spoke with her tar worker yesterday with plan for heart catheterization which her tar worker will arrange. Patient feels comfortable going home. She understands she needs to avoid exertion and pace herself. She has been hemodynamically stable, afebrile, blood pressure 133/74, heart rate 74, pulse ox 96% on room air. Yesterday we increased her clonidine to 0.3 mg patch. Home medications will be reviewed and patient will be cleared for discharge home later today. Objective - Vital Signs Vital signs: Vital Signs Temp 98.2 F 09/19/19 04:00 Pulse 74 09/19/19 04:00 Resp 18 09/19/19 04:00 BP 133/74 09/19/19 04:00 Pulse Ox 96 09/19/19 04:00 Intake & Output 09/18/19 09/19/19 09/19/19 18:59 06:59 18:59 Weight 85.3 kg Other: # Voids 3 1 - Exam Gen: This is an 89-year-old female. Patient is sitting in recliner and appears to be in no acute distress. HEENT: Head is atraumatic, normocephalic. Pupils equal, round. Sclerae is anicteric. NECK: Supple. No JVD. No lymphadenopathy. No thyromegaly. LUNGS: Clear to auscultation. No wheezes or rhonchi. No intercostal retractions. HEART: Regular rate and rhythm. Systolic ejection murmur. ABDOMEN: Soft. Bowel sounds are present. No masses. No tenderness. EXTREMITIES: No pedal edema. No calf tenderness. NEUROLOGICAL: Patient is awake, alert and oriented x3. Cranial nerves 2 through 12 are grossly intact. - Labs CBC & Chem 7: 09/17/19 14:27 09/17/19 14:27 Labs: Abnormal Lab Results - Last 24 Hours (Table) 09/18/19 09/18/19 09/19/19 Range/Units 11:22 20:42 06:10 POC Glucose (mg/dL) 170 H 210 H 158 H (75-99) mg/dL Assessment and Plan Plan: 1. Non-ST elevated myocardial infarction. 2. Uncontrolled hypertension. 3. History of coronary artery disease with prior stent placements, [facility]. 4. Paroxysmal atrial fibrillation on eliquis. 5. Hypertension. 6. Hyperlipidemia. 7. Diabetes mellitus type 2. 8. Obstructive sleep apnea. 9. Hypothyroidism. Plan: Patient's medications will be reviewed recommendations made for home. Patient is cleared from cardiology for discharge home with plan for follow-up with her primary tar worker on Friday. She will be discharged on her previous home medications. Nurse practitioner note has been reviewed, I agree with documented findings and plan of care. Patient was seen and examined.
[2019-09-19] MEDS: MECLIZINE 25 MG TAB PO SCH (08:22)
[2019-09-19] MEDS ORDERED: ESTRADIOL 0.05 MG/24 HR TOPICAL SCH (09:00)
[2019-09-19] MEDS: APIXABAN 5 MG TAB PO SCH (09:02)
[2019-09-19] MEDS: ASPIRIN 81 MG PO SCH (09:02)
[2019-09-19] MEDS: hydrALAZINE HCL 50 MG TAB PO SCH (09:02)
[2019-09-19 09:09] VITALS: BP 133/73; PULSE 78; RESP 16; TEMP 97.7
[2019-09-19 11:49] LABS: Glucose,Whole Blood 110 mg/dL (75-99)
[2019-09-19] MEDS ORDERED: cloNIDine 0.2 MG/24HR PATCH TRANSDERM SCH (12:15)
--- NOTE | 2019-09-19 12:20 | P.DS ---
Providers Date of admission: 09/17/19 16:36 Expected date of discharge: 09/19/19 Attending physician: Gerard Prasad Consults: 09/17/19 16:36 Consult Physician Urgent Consulting Provider: [facility] Consult Reason/Comments: Unstable angina Do you want consulting provider notified?: Yes Primary care physician: Karlo Locke [facility] Course: This is ant 89-year-old female patient of Dr. Locke and who follows with a muffler installer at [facility], [facility]. She has a past medical history of coronary artery disease with prior stent placements, the most recent stent was placed in April 2018 according to the patient, hypertension, hyperlipidemia, diabetes mellitus type II, GERD, obstructive sleep apnea, history of permanent pacemaker, paroxysmal atrial fibrillation, hypothyroidism. She had most recent hospitalization in May at which time she presented with chest pain and patient was cleared by cardiology follow-up with her primary muffler installer at that time. Patient now gives history of having difficulty breathing with chest pain that was midsternal rating all the way across her chest but not involving her jaw or arms. She states it was present when she woke in the morning. She took nitroglycerin which seemed to help but the pain came back later and she had 3 episodes of which she was taking nitroglycerin with improvement. She also states that her blood pressure was extremely high at home until up calling her son to bring her into the hospital for evaluation. Echocardiogram from May 2019 revealed EF 50-55% with mild concentric left ventricular hypertrophy, mild mitral regurgitation, mild tricuspid regurgitation, no pulmonary hypertension. Patient was admitted to the cardiac stepdown unit and seen in consultation by cardiology. Patient has been ruled in for non-ST elevated myocardial infarction. Troponins were 0.013, 0.064, 0.047. Triglycerides 139, cholesterol 144, LDL 77, HDL 39. CBC was normal, BUN 24 and creatinine 0.83, sodium 136. Patient was afebrile with heart rate of 58 initially with a blood pressure of 192/76, pulse ox 96% on room air. Patient has contacted her muffler installer Dr. Glaser and plan is for patient to be discharged most likely tomorrow and call on Friday to set up an appointment for further testing. Patient denies having any chest pain at this time, no lower extremity edema, no blood or tarry stools. 09/19: Patient is seen today in recheck. She denies having any chest pain. She states she does have some exertional shortness of breath which she has had since May without change. She spoke with her muffler installer yesterday with plan for heart catheterization which her muffler installer will arrange. Patient feels comfortable going home. She understands she needs to avoid exertion and pace herself. She has been hemodynamically stable, afebrile, blood pressure 133/74, heart rate 74, pulse ox 96% on room air. Yesterday we increased her clonidine to 0.3 mg patch. Cardiology has reviewed medications and cleared for discharge. Patient is to continue her home medications as previously prescribed. Discharge diagnoses: 1. Non-ST elevated myocardial infarction. 2. Uncontrolled hypertension. 3. History of coronary artery disease with prior stent placements, [facility]. 4. Paroxysmal atrial fibrillation on eliquis. 5. Hypertension. 6. Hyperlipidemia. 7. Diabetes mellitus type 2. 8. Obstructive sleep apnea. 9. Hypothyroidism. Discharge Plan: home Impression and plan of care have been directed as dictated by the signing physician. Tereza Arnett nurse practitioner acting as scribe for signing physician. Patient Condition at Discharge: Good Plan - Discharge Summary New Discharge Prescriptions: Continue Cholecalciferol [Vitamin D3 (25 Mcg = 1000 Iu)] 3,000 unit PO DAILY Ascorbic Acid [Vitamin C] 500 mg PO DAILY PRN PRN Reason: Cold Symptoms glipiZIDE XL [Glucotrol XL] 2.5 mg PO DAILY Apixaban [Eliquis] 5 mg PO BID Levothyroxine Sodium [Synthroid] 75 mcg PO DAILY traMADol HCL [Ultram] 50 mg PO BID PRN PRN Reason: Pain Estradiol 0.05MG/24Hr Biwkptch [Vivelle-Dot 0.05 MG] 1 patch TRANSDERM SUWE Isosorbide Mononitrate ER [Imdur] 60 mg PO DAILY tab.er.24h Nitroglycerin Sl Tabs [Nitrostat] 0.4 mg PO Q5M PRN #25 tab PRN Reason: Chest Pain Spironolactone [Aldactone] 25 mg PO DAILY PRN PRN Reason: Edema Melatonin 10 mg PO HS Atorvastatin [Lipitor] 20 mg PO HS Aspirin EC [Ecotrin Low Dose] 81 mg PO DAILY Isosorbide Mononitrate ER [Imdur] 90 mg PO HS diphenhydrAMINE HCL [Benadryl] 25 mg PO HS hydrALAZINE HCL [Apresoline] 100 mg PO TID cloNIDine 0.2 MG/24HR PATCH [Catapres-TTS] 1 patch TRANSDERM ALPRAZolam [Xanax] 0.25 mg PO BID PRN PRN Reason: Anxiety cloNIDine HCL [Catapres] 0.1 mg PO BID PRN PRN Reason: HIGH BLOOD PRESSURE Metoprolol Tartrate [Lopressor] 50 mg PO QID Discharge Medication List Apixaban [Eliquis] 5 mg PO BID 04/19/17 [History] Ascorbic Acid [Vitamin C] 500 mg PO DAILY PRN 04/19/17 [History] Cholecalciferol [Vitamin D3 (25 Mcg = 1000 Iu)] 3,000 unit PO DAILY 04/19/17 [History] glipiZIDE XL [Glucotrol XL] 2.5 mg PO DAILY 04/19/17 [History] Levothyroxine Sodium [Synthroid] 75 mcg PO DAILY 05/26/17 [History] Estradiol 0.05MG/24Hr Biwkptch [Vivelle-Dot 0.05 MG] 1 patch TRANSDERM SUWE 01/13/19 [History] Isosorbide Mononitrate ER [Imdur] 60 mg PO DAILY tab.er.24h 01/13/19 [Rx] traMADol HCL [Ultram] 50 mg PO BID PRN 01/13/19 [History] Nitroglycerin Sl Tabs [Nitrostat] 0.4 mg PO Q5M PRN #25 tab 01/18/19 [Rx] Aspirin EC [Ecotrin Low Dose] 81 mg PO DAILY 05/09/19 [History] Atorvastatin [Lipitor] 20 mg PO HS 05/09/19 [History] Isosorbide Mononitrate ER [Imdur] 90 mg PO HS 05/09/19 [History] Melatonin 10 mg PO HS 05/09/19 [History] Spironolactone [Aldactone] 25 mg PO DAILY PRN 05/09/19 [History] ALPRAZolam [Xanax] 0.25 mg PO BID PRN 09/17/19 [History] cloNIDine 0.2 MG/24HR PATCH [Catapres-TTS] 1 patch TRANSDERM 09/17/19 [History] cloNIDine HCL [Catapres] 0.1 mg PO BID PRN 09/17/19 [History] diphenhydrAMINE HCL [Benadryl] 25 mg PO HS 09/17/19 [History] hydrALAZINE HCL [Apresoline] 100 mg PO TID 09/17/19 [History] Metoprolol Tartrate [Lopressor] 50 mg PO QID 09/18/19 [History] Follow up Appointment(s)/Referral(s): Karlo Locke MD [Primary Care Provider] - 1 Week Malou Glaser MD [Family Provider] - 1 Week ([facility]) Discharge Disposition: HOME SELF-CARE
[2019-09-20] MEDS ORDERED: ISOSORBIDE MONONITRATE ER 60 MG TAB.ER.24H PO SCH (09:00)
[2019-09-21] MEDS ORDERED: cloNIDine 0.2 MG/24HR PATCH TRANSDERM SCH (09:00)
== END 2019-09-19 15:10 | disposition home or self-care (01) | DRG 282 ==
LOC: EC 13:59 → 3SCARD 16:36
PROVIDERS: ADMIT Internal Medicine; ATTEND Internal Medicine
DX: I21.4 Non-ST elevation (NSTEMI) myocardial infarction (principal); I25.10 Atherosclerotic heart disease of native coronary artery without angina pectoris; E78.00 Pure hypercholesterolemia, unspecified; E89.0 Postprocedural hypothyroidism; E11.9 Type 2 diabetes mellitus without complications; E78.5 Hyperlipidemia, unspecified; F41.9 Anxiety disorder, unspecified; G25.81 Restless legs syndrome; G47.33 Obstructive sleep apnea (adult) (pediatric); Z99.89 Dependence on other enabling machines and devices; I11.9 Hypertensive heart disease without heart failure; I48.0 Paroxysmal atrial fibrillation; Z79.01 Long term (current) use of anticoagulants; Z79.02 Long term (current) use of antithrombotics/antiplatelets; Z79.82 Long term (current) use of aspirin; Z79.84 Long term (current) use of oral hypoglycemic drugs; Z79.890 Hormone replacement therapy; Z79.899 Other long term (current) drug therapy; Z80.0 Family history of malignant neoplasm of digestive organs; Z80.8 Family history of malignant neoplasm of other organs or systems; Z82.3 Family history of stroke; Z82.49 Family history of ischemic heart disease and other diseases of the circulatory system; Z85.828 Personal history of other malignant neoplasm of skin; Z87.891 Personal history of nicotine dependence; Z90.710 Acquired absence of both cervix and uterus; Z95.0 Presence of cardiac pacemaker; Z95.5 Presence of coronary angioplasty implant and graft; Z90.49 Acquired absence of other specified parts of digestive tract; I08.1 Rheumatic disorders of both mitral and tricuspid valves; K58.9 Irritable bowel syndrome, unspecified; I83.90 Asymptomatic varicose veins of unspecified lower extremity; M19.90 Unspecified osteoarthritis, unspecified site; Z88.8 Allergy status to other drugs, medicaments and biological substances
CPT/HCPCS: 36415; 71046; 80053; 80061; 83735; 84484; 85025; 85610; 85730; 93005; 99285

== ENCOUNTER 2019-10-09 17:45 | Emergency (ER) | payer MEDICARE ==
[2019-10-09 17:50] VITALS: PULSE 79; TEMP 97.9
[2019-10-09 18:02] VITALS: BP 166/84; RESP 18
--- NOTE | 2019-10-09 18:23 | ED ---
General Adult HPI - General Chief complaint: Allergic Reaction Stated complaint: Allergic Reaction Time Seen by Provider: 10/09/19 17:58 Source: patient Mode of arrival: ambulatory Limitations: no limitations - History of Present Illness Initial comments: Dictation was produced using [employer] dictation software. please excuse any grammatical, word or spelling errors. Chief Complaint: 89-year-old female with multiple drug ALLERGIES presents with concern of angioedema. History of Present Illness: A 89-year-old female she presents today with concerns of blood pressure medications. She is convinced that she has ALLERGY to either metoprolol or clonidine. Patient has multiple drug ALLERGIES. She was seen at [facility] for concerns of angioedema she was given Benadryl told to come to the emergency department. She states that she is deathly ALLERGIC to Ray inhibitors, hydralazine and calcium channel blockers. She states that she called her personal associate data scientist Dr. Malou Noel. She reports that that associate data scientist told her to come to the emergency department for blood pressure medication adjustment and possible steroid injection. She reports that her tongue swelling improved immensely. She is not concerned about this tongue swelling anymore. Patient states that she saw an ALLERGY flight superintendent several months ago and was told that she has no ALLERGIES. She reports that her lip does feel slightly swollen. The ROS documented in this emergency department record has been reviewed and confirmed by me. Those systems with pertinent positive or negative responses have been documented in the HPI. All other systems are other negative and/or noncontributory. PHYSICAL EXAM: General Impression: Alert and oriented x3, not in acute distress HEENT: Normocephalic atraumatic, extra-ocular movements intact, pupils equal and reactive to light bilaterally, mucous membranes moist, no tongue swelling, no lip swelling Cardiovascular: Heart regular rate and rhythm, S1&S2 audible, no murmurs, rubs or gallops Chest: Lungs clear to auscultation bilaterally, no rhonchi, no wheeze, no rales Abdomen: Bowel sounds present, abdomen soft, non-tender, non-distended, no organomegaly Musculoskeletal: Pulses present and equal in all extremities, no peripheral edema Motor: no focal deficits noted Neurological: CN II-XII grossly intact, no focal motor or sensory deficits noted Skin: Intact with no visualized rashes Psych: Normal affect and mood ED course: 89-year-old female presents with concerns of blood pressure medica tions. Signs upon arrival shows blood pressure 200/93, rest of vital signs within acceptable limits. Repeat blood pressure after approximately 15 minutes was 166/84. Patient does not appear to be suffering from angioedema at this time. Discussed patient case with Dr. Malou Noel who is patient's associate data scientist. She does confirm that she did have a conversation with patient earlier today. She told her to come to the emergency department for evaluation of possible angioedema. Dr. Glaser reports that patient has long history of considering she is ALLERGIC to a lot of medications. She has been evaluated by ALLERGY immunology and ALLERGIES have been ruled out. 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 She recommends that patient be continued on her usual medication regimen. Conversation with Dr. Glaser was discussed with patient. She is advised to continue taking her prescribed medications and that the chance of ALLERGY is highly unlikely. She reports that she will probably not take her medications. Patient threatening that she will be noncompliant. I told her that is your decision however it's against medical recommendation of her associate data scientist and myself. It is stressed to the patient that chance of ALLERGY to metoprolol and Catapres is highly unlikely she still endorses that she will not take his medications for the time being. Patient is advised to follow-up with her associate data scientist and primary care physician. Patient given 10 mg of IM Decadron. She is observed in emergency department for several minutes discharged home in stable medical condition. - Related Data Home Medications Medication Instructions Recorded Confirmed Apixaban [Eliquis] 5 mg PO BID 04/19/17 09/17/19 Ascorbic Acid [Vitamin C] 500 mg PO DAILY PRN 04/19/17 09/17/19 Cholecalciferol [Vitamin D3 (25 3,000 unit PO DAILY 04/19/17 09/17/19 Mcg = 1000 Iu)] glipiZIDE XL [Glucotrol XL] 2.5 mg PO DAILY 04/19/17 09/17/19 Levothyroxine Sodium [Synthroid] 75 mcg PO DAILY 05/26/17 09/17/19 Estradiol 0.05MG/24Hr Biwkptch 1 patch TRANSDERM SUWE 01/13/19 09/17/19 [Vivelle-Dot 0.05 MG] traMADol HCL [Ultram] 50 mg PO BID PRN 01/13/19 09/17/19 Aspirin EC [Ecotrin Low Dose] 81 mg PO DAILY 05/09/19 09/17/19 Atorvastatin [Lipitor] 20 mg PO HS 05/09/19 09/17/19 Isosorbide Mononitrate ER [Imdur] 90 mg PO HS 05/09/19 09/17/19 Melatonin 10 mg PO HS 05/09/19 09/17/19 Spironolactone [Aldactone] 25 mg PO DAILY PRN 05/09/19 09/17/19 ALPRAZolam [Xanax] 0.25 mg PO BID PRN 09/17/19 09/17/19 cloNIDine 0.2 MG/24HR PATCH 1 patch TRANSDERM TU 09/17/19 09/17/19 [Catapres-TTS] cloNIDine HCL [Catapres] 0.1 mg PO BID PRN 09/17/19 09/17/19 diphenhydrAMINE HCL [Benadryl] 25 mg PO HS 09/17/19 09/17/19 hydrALAZINE HCL [Apresoline] 100 mg PO TID 09/17/19 09/18/19 Metoprolol Tartrate [Lopressor] 50 mg PO QID 09/18/19 09/18/19 Previous Rx's Medication Instructions Recorded Isosorbide Mononitrate ER [Imdur] 60 mg PO DAILY tab.er.24h 01/13/19 Nitroglycerin Sl Tabs [Nitrostat] 0.4 mg PO Q5M PRN #25 tab 01/18/19 Clotrimazole/Betameth Cream 1 applic TOPICAL BID #30 gm 09/19/19 [Lotrisone] Allergies Allergy/AdvReac Type Severity Reaction Status Date / Time RAY Inhibitors Allergy Severe Swelling Verified 10/09/19 17:50 cortisone Allergy Severe Rash/Hives, Verified 10/09/19 17:50 high BP hydralazine Allergy Swelling Verified 10/09/19 17:50 Calcium Channel Blocking AdvReac SORES IN Verified 10/09/19 17:50 Agent Dilt MOUTH dust,trees Allergy Unknown Uncoded 10/09/19 17:50 Review of Systems ROS Statement: Those systems with pertinent positive or pertinent negative responses have been documented in the HPI. ROS Other: All systems not noted in ROS Statement are negative. Past Medical History Past Medical History: Atrial Fibrillation, Coronary Artery Disease (CAD), Cancer, Chest Pain / Angina, Diabetes Mellitus, GERD/Reflux, Hyperlipidemia, Hypertension, Osteoarthritis (OA), Sleep Apnea/CPAP/BIPAP, Thyroid Disorder Additional Past Medical History / Comment(s): skin cancer, restless leg syndrome, varicose veins, IBS, History of Any Multi-Drug Resistant Organisms: None Reported Past Surgical History: Adenoidectomy, Appendectomy, Breast Surgery, Cholecystectomy, Heart Catheterization With Stent, Hysterectomy, Orthopedic Surgery, Pacemaker, Tonsillectomy Additional Past Surgical History / Comment(s): walt cataract, 2 stents, partial thyroidectomy, rt shoulder rotator cuff, walt breast biopsy, metal clip in rt breast Past Anesthesia/Blood Transfusion Reactions: No Reported Reaction Date of Last Stent Placement:: 1998 Type of Cardiac Device: Permanent Pacemaker, Unknown Device Placement Date:: 2014 Past Psychological History: Anxiety Smoking Status: Former smoker Past Alcohol Use History: Occasional Past Drug Use History: None Reported - Past Family History Mother Additional Family Medical History / Comment(s): Mother at age 76 from massive stroke. Brother(s) Additional Family Medical History / Comment(s): The patient had a total of 3 brothers. One brother from melanoma. One brother is with history of coronary artery disease status post CABG. One brother has from colon cancer with history of coronary artery disease. Patient does not have any sisters. Daughter(s) Family Medical History: No Reported History (Healthy 1 daughter) Son(s) History Unknown: Yes (Healthy 3 sons) Additional Family Medical History / Comment(s): Patient has 3 sons and 1 daughter. One son has history of coronary artery disease, second son has history of AICD. Patient has 1 son and 1 daughter with no major medical problems. Father Additional Family Medical History / Comment(s): Father at age 59 from a myocardial infarction. General Exam Limitations: no limitations Course Vital Signs 10/09/19 10/09/19 10/09/19 17:46 17:59 18:01 Temperature 97.9 F Pulse Rate 79 79 Respiratory 16 18 18 Rate Blood Pressure 200/93 166/84 O2 Sat by Pulse 97 97 Oximetry Disposition Clinical Impression: Hypertension, Angioedema Disposition: HOME SELF-CARE Condition: Good Instructions (If sedation given, give patient instructions): Angioedema (ED) Is patient prescribed a controlled substance at d/c from ED?: No Referrals: Karlo Locke MD [Primary Care Provider] - 1-2 days Time of Disposition: 18:39
[2019-10-09] MEDS ORDERED: DEXAMETHASONE SOD PHOSPHATE 10 MG/ML 1 ML VIAL IM STA (18:27)
== END 2019-10-09 19:07 | disposition home or self-care (01) ==
LOC: EC 17:45
DX: T78.3XXA Angioneurotic edema, initial encounter (principal); I10 Essential (primary) hypertension; E11.9 Type 2 diabetes mellitus without complications; E78.5 Hyperlipidemia, unspecified; F41.9 Anxiety disorder, unspecified; G25.81 Restless legs syndrome; I25.10 Atherosclerotic heart disease of native coronary artery without angina pectoris; I48.91 Unspecified atrial fibrillation; M19.90 Unspecified osteoarthritis, unspecified site; G47.30 Sleep apnea, unspecified; I25.2 Old myocardial infarction; Z91.19 Patient's noncompliance with other medical treatment and regimen; Z79.01 Long term (current) use of anticoagulants; Z79.82 Long term (current) use of aspirin; Z79.84 Long term (current) use of oral hypoglycemic drugs; Z79.890 Hormone replacement therapy; Z79.899 Other long term (current) drug therapy; Z87.891 Personal history of nicotine dependence; Z88.8 Allergy status to other drugs, medicaments and biological substances; Z91.048 Other nonmedicinal substance allergy status; Z85.828 Personal history of other malignant neoplasm of skin; Z95.0 Presence of cardiac pacemaker; Z95.5 Presence of coronary angioplasty implant and graft; Z90.89 Acquired absence of other organs
CPT/HCPCS: 96372; 99283; J1100

== ENCOUNTER 2020-02-06 02:53 | Observation (INO) | payer MEDICARE ==
--- NOTE | 2020-02-06 03:19 | ED ---
Chest Pain HPI - General Chief Complaint: Chest Pain Stated Complaint: High BP, Chest Pain Time Seen by Provider: 02/06/20 03:19 Source: patient Mode of arrival: ambulatory Limitations: no limitations - Related Data Home Medications Medication Instructions Recorded Confirmed Apixaban [Eliquis] 5 mg PO BID 04/19/17 09/17/19 Ascorbic Acid [Vitamin C] 500 mg PO DAILY PRN 04/19/17 09/17/19 Cholecalciferol [Vitamin D3 (25 3,000 unit PO DAILY 04/19/17 09/17/19 Mcg = 1000 Iu)] glipiZIDE XL [Glucotrol XL] 2.5 mg PO DAILY 04/19/17 09/17/19 Levothyroxine Sodium [Synthroid] 75 mcg PO DAILY 05/26/17 09/17/19 Estradiol 0.05MG/24Hr Biwkptch 1 patch TRANSDERM SUWE 01/13/19 09/17/19 [Vivelle-Dot 0.05 MG] traMADol HCL [Ultram] 50 mg PO BID PRN 01/13/19 09/17/19 Aspirin EC [Ecotrin Low Dose] 81 mg PO DAILY 05/09/19 09/17/19 Atorvastatin [Lipitor] 20 mg PO HS 05/09/19 09/17/19 Isosorbide Mononitrate ER [Imdur] 90 mg PO HS 05/09/19 09/17/19 Melatonin 10 mg PO HS 05/09/19 09/17/19 Spironolactone [Aldactone] 25 mg PO DAILY PRN 05/09/19 09/17/19 ALPRAZolam [Xanax] 0.25 mg PO BID PRN 09/17/19 09/17/19 cloNIDine 0.2 MG/24HR PATCH 1 patch TRANSDERM TU 09/17/19 09/17/19 [Catapres-TTS] cloNIDine HCL [Catapres] 0.1 mg PO BID PRN 09/17/19 09/17/19 diphenhydrAMINE HCL [Benadryl] 25 mg PO HS 09/17/19 09/17/19 hydrALAZINE HCL [Apresoline] 100 mg PO TID 09/17/19 09/18/19 Metoprolol Tartrate [Lopressor] 50 mg PO QID 09/18/19 09/18/19 Previous Rx's Medication Instructions Recorded Isosorbide Mononitrate ER [Imdur] 60 mg PO DAILY tab.er.24h 01/13/19 Nitroglycerin Sl Tabs [Nitrostat] 0.4 mg PO Q5M PRN #25 tab 01/18/19 Clotrimazole/Betameth Cream 1 applic TOPICAL BID #30 gm 09/19/19 [Lotrisone] Allergies Allergy/AdvReac Type Severity Reaction Status Date / Time JORGITO Inhibitors Allergy Severe Swelling Verified 02/06/20 03:00 cortisone Allergy Severe Rash/Hives, Verified 02/06/20 03:00 high BP hydralazine Allergy Swelling Verified 02/06/20 03:00 Calcium Channel Blocking AdvReac SORES IN Verified 02/06/20 03:00 Agent Dilt MOUTH dust,trees Allergy Unknown Uncoded 02/06/20 03:00 Review of Systems ROS Statement: Those systems with pertinent positive or pertinent negative responses have been documented in the HPI. ROS Other: All systems not noted in ROS Statement are negative. EKG Findings - EKG Comments: EKG Findings:: EKG shows paced a 63, AR 184 QRS 158 QTc 485 Past Medical History Past Medical History: Atrial Fibrillation, Coronary Artery Disease (CAD), Cancer, Chest Pain / Angina, Diabetes Mellitus, GERD/Reflux, Hyperlipidemia, Hypertension, Osteoarthritis (OA), Sleep Apnea/CPAP/BIPAP, Thyroid Disorder Additional Past Medical History / Comment(s): skin cancer, restless leg syndrome, varicose veins, IBS, History of Any Multi-Drug Resistant Organisms: None Reported Past Surgical History: Adenoidectomy, Appendectomy, Breast Surgery, Cholecystectomy, Heart Catheterization With Stent, Hysterectomy, Orthopedic Surgery, Pacemaker, Tonsillectomy Additional Past Surgical History / Comment(s): walt cataract, 2 stents, partial thyroidectomy, rt shoulder rotator cuff, walt breast biopsy, metal clip in rt breast Past Anesthesia/Blood Transfusion Reactions: No Reported Reaction Date of Last Stent Placement:: 1998 Type of Cardiac Device: Permanent Pacemaker, Unknown Device Placement Date:: 2014 Past Psychological History: Anxiety Smoking Status: Former smoker Past Alcohol Use History: Occasional Past Drug Use History: None Reported - Past Family History Mother Additional Family Medical History / Comment(s): Mother at age 76 from massive stroke. Brother(s) Additional Family Medical History / Comment(s): The patient had a total of 3 brothers. One brother from melanoma. One brother is with history of coronary artery disease status post CABG. One brother has from colon cancer with history of coronary artery disease. Patient does not have any sisters. Daughter(s) Family Medical History: No Reported History (Healthy 1 daughter) Son(s) History Unknown: Yes (Healthy 3 sons) Additional Family Medical History / Comment(s): Patient has 3 sons and 1 daughter. One son has history of coronary artery disease, second son has history of AICD. Patient has 1 son and 1 daughter with no major medical problems. Father Additional Family Medical History / Comment(s): Father at age 59 from a myocardial infarction. General Exam Limitations: no limitations Course Vital Signs 02/06/20 02:55 Temperature 98.1 F Pulse Rate 65 Respiratory 18 Rate Blood Pressure 186/80 O2 Sat by Pulse 97 Oximetry Disposition Referrals: Karol Locke MD [Primary Care Provider] - 1-2 days
[2020-02-06 03:20] LABS: Basophils # (A) 0.1 k/uL (0-0.2); Basophils % (A) 1 %; Eosinophils # (A) 0.2 k/uL (0-0.7); Eosinophils % (A) 3 %; HCT 44.4 % (34.0-46.0); Lymphocytes # (A) 1.8 k/uL (1.0-4.8); Lymphocytes % (A) 23 %; MCH 30.2 pg (25.0-35.0); MCHC 31.6 g/dL (31.0-37.0); MCV 95.5 fL (80.0-100.0); Mean Platelet Volume 7.9; Monocytes # (A) 0.8 k/uL (0-1.0); Monocytes % (A) 11 %; Neutrophils # (A) 4.7 k/uL (1.3-7.7); Neutrophils % (A) 60 %; Platelet Count 204 k/uL (150-450); RBC 4.66 m/uL (3.80-5.40); RDW 13.4 % (11.5-15.5); WBC 7.8 k/uL (3.8-10.6)
[2020-02-06 03:29] LABS: Calcium 9.6 mg/dL (8.4-10.2); Potassium 4.6 mmol/L (3.5-5.1); Total Bilirubin 0.5 mg/dL (0.2-1.3)
[2020-02-06 03:32] LABS: INR 0.9 (<1.2); Partial Thromboplastin Time 24.4 sec (22.0-30.0); Prothrombin Time 9.8 sec (9.0-12.0)
--- NOTE | 2020-02-06 04:03 | XR ---
EXAMINATION TYPE: XR chest 2V DATE OF EXAM: 02/06/2020 COMPARISON: 09/17/2019 HISTORY: Chest pain TECHNIQUE: FINDINGS: There is no heart failure nor confluent pneumonic infiltrate. Costophrenic angles are clear . Heart size is fairly normal. Thoracic aorta is atheromatous. There is left axillary pacemaker. Ther e are chest leads. Bony thorax is intact. IMPRESSION: No active cardiopulmonary disease. Inspiration improved compared to old exam.
[2020-02-06] MEDS ORDERED: NITROGLYCERIN SL TABS 0.4 MG TAB SUBLINGUAL STA (04:22)
[2020-02-06] MEDS ORDERED: NITROGLYCERIN SL TABS 0.4 MG TAB SUBLINGUAL PRN (04:49)
--- NOTE | 2020-02-06 10:30 | CONS ---
CONSULTATION Mrs. Jennings is an 89-year-old female known history of coronary artery disease, paroxysmal atrial fibrillation, permanent pacemaker implantation, followed by mental hygiene consultant at [facility], who presented with episode of chest discomfort as well as elevation of her blood pressure. She has, according to her, chronic stable angina pectoris a little bit worse recently, has underwent repeat cardiac catheterization in October, but no intervention was needed at that time. Yesterday, her blood pressure was elevated and persisted to be elevated and that brought her into the emergency room. She has mild dyspnea on exertion, occasional dizziness. No syncope. She denies any PND, orthopnea. She did not feel any pounding in the chest. Because of the elevation of her blood pressure, she took Catapres, but the blood pressure persisted to be elevated and she came in. She is stable at this time. She has no recent syncope. She has occasional PACs. She has occasional peripheral edema. Her coronary risk factors are remarkable for diabetes, hypertension, hyperlipidemia. She is nonsmoker. MEDICATION: Apresoline 100 mg 3 times a day, Glucotrol 2.5 mg daily, spironolactone on a p.r.n. basis, metoprolol tartrate 50 mg 4 times a day, Synthroid 75 mcg daily, isosorbide mononitrate, Lipitor 20 mg daily, aspirin once a day, Eliquis 5 mg twice a day, alprazolam. REVIEW OF SYSTEMS: RESPIRATORY system: She has dyspnea on exertion. No recent wheezing or cough. GI system: No recent GI bleeding. No peptic ulcer disease. system: No dysuria or hematuria. NERVOUS SYSTEM: No stroke or seizure. PHYSICAL EXAMINATION: She is an 89-year-old female, alert, oriented, in no apparent distress. Initial blood pressure 186/80, down to 119 with a heart rate in 60s. HEAD: Normocephalic. Eyes sclerae anicteric. NECK good upstroke. No bruit. No jugular venous distention. LUNGS: Clear to auscultation. HEART: Regular rate and rhythm S1, S2. No S3 with systolic murmur 2/6 heard at the base. Plus S4. No rub. ABDOMEN: Soft, nontender. Positive bowel sounds. No organomegaly. EXTREMITIES: Trace to 1+ edema left side. LAB DATA: BUN and creatinine 20 and 0.79. Troponin less than 0.012. Hemoglobin of 14. Potassium of 4.6. IMPRESSION: 1. Chest discomfort with no evidence of acute coronary syndrome in a patient with known history of heart disease, underwent cardiac catheterization in October and that was unremarkable according to her. 2. Hypertension, elevated at times. 3. Hyperlipidemia. 4. Diabetes mellitus. RECOMMENDATION: I will re-initiate her oral medication. I will add to her regimen hydrochlorothiazide 25 mg daily. Continue rest of medical regimen. She will follow up with her primary mental hygiene consultant and will see her on as-needed basis. Thank you for this consult. MMODL / IJN: [id number] /
[2020-02-06] MEDS: hydrALAZINE HCL 50 MG TAB PO SCH ×2 (11:56→16:13)
[2020-02-06] MEDS: METOPROLOL TARTRATE 50 MG TAB PO SCH ×3 (11:57→21:47)
[2020-02-06] MEDS: HYDROCHLOROTHIAZIDE 25 MG TAB PO SCH (11:57)
[2020-02-06] MEDS ORDERED: traMADol 50 MG TAB PO PRN (15:17)
[2020-02-06] MEDS ORDERED: SPIRONOLACTONE 25 MG TAB PO PRN (15:17)
[2020-02-06] MEDS ORDERED: ALPRAZolam 0.25 MG TAB PO PRN (15:17)
--- NOTE | 2020-02-06 15:18 | P.HPIM ---
History of Present Illness H&P Date: 02/06/20 Chief Complaint: Elevated blood pressure, uncontrolled, chest pain, neck pain headache This is ant 89-year-old female patient of Dr. Locke and who follows with a fountain operator at [facility]. She has a past medical history of atrial fibrillation on eliquis,coronary artery disease with prior stent placements, the most recent stent was placed in April 2018 according to the patient, hypertension, hyperlipidemia, diabetes mellitus type II, GERD, obstructive sleep apnea, history of permanent pacemaker, paroxysmal atrial fibrillation, hypothyroidism. She had most recent hospitalization in May at which time she presented with chest pain and patient was cleared by cardiology follow-up with her primary fountain operator at that time. Echocardiogram from May 2019 revealed EF 50-55% with mild concentric left ventricular hypertrophy, mild mitral regurgitation, mild tricuspid regurgitation, no pulmonary hypertension. She presents emergency room secondary to uncontrolled blood pressure related to hip exposure earlier during the day, patient was out gardening, when she came back in one hour later, she had chest pain, radiating to the neck, nonsustained, unknown timing, patient also had a headache at that time, no lightheadedness or dizziness, patient denies any palpitation, no shortness of breath. Patient does not have any diarrhea or abdominal pain, no melena hematochezia, emergency room, EKG shows paced rhythm 63, no QTC prolongation, troponin was 0.01 2.012, 0.012, glucose of 1:30, BUN 28, creatinine 0.79, sodium was 135, no urinalysis needed patient was admitted for an observation, secondary to hypertensive urgency with chest pain and headache, heat exhaustion Review of Systems Constitutional: Reports as per HPI, Reports weakness, Denies anorexia, Denies chills, Denies chronic headaches, Denies chronic pain, Denies daytime sleepiness, Denies fatigue, Denies fever, Denies lethargy, Denies malaise, Denies night sweats, Denies poor appetite, Denies sweats, Denies weight gain, Denies weight loss Ears, nose, mouth and throat: Reports as per HPI, Reports headache, Reports neck fullness/pressure Cardiovascular: Reports chest pain, Denies as per HPI, Denies claudication, Denies decreased exercise tolerance, Denies dyspnea on exertion, Denies edema, Denies high blood pressure, Denies irregular heart beat, Denies leg edema, Denies lightheadedness, Denies orthopnea, Denies palpitations, Denies paroxysmal nocturnal dyspnea, Denies phlebitis, Denies rapid heart beat, Denies shortness of breath, Denies syncope Respiratory: Reports as per HPI, Denies congestion, Denies cough, Denies cough with sputum, Denies dyspnea, Denies excessive sputum, Denies hemoptysis, Denies home oxygen, Denies pain, Denies pain on inspiration, Denies pleurisy, Denies respiratory infections, Denies sleep apnea, Denies snoring, Denies wheezing Gastrointestinal: Reports as per HPI, Denies abdominal pain, Denies belching, Denies bloating, Denies BRBPR, Denies change in bowel habits, Denies coffee ground emesis, Denies constipation, Denies diarrhea, Denies dyspepsia, Denies early satiety, Denies excessive gas, Denies heartburn, Denies hematemesis, Denies hematochezia, Denies indigestion, Denies jaundice, Denies lactose intolerance, Denies loss of appetite, Denies melena, Denies nausea, Denies vomiting Genitourinary: Reports as per HPI, Denies abnormal vaginal bleeding, Denies decreased libido, Denies difficulty conceiving, Denies difficulty voiding, Denies dysmenorrhea, Denies dyspareunia, Denies dysuria, Denies flank pain, Denies genital sores, Denies hematuria, Denies hot flashes, Denies incomplete emptying, Denies kidney stones, Denies menorrhagia, Denies mixed incontinence, Denies nocturia, Denies pelvic pain, Denies post void dribbling, Denies , Denies prolapse symptoms, Denies stress incontinence, Denies urge incontinence, Denies urgency, Denies urinary frequency, Denies vaginal discharge, Denies vaginal dryness, Denies vaginal itching, Denies vaginal odor Menstruation: Reports as per HPI, Denies amenorrhea, Denies amenorrhea on BC, Denies currently menstrual, Denies cycle < 21 days, Denies cycle > 35 days, Denies cycle variable, Denies menses 1-7 days, Denies menses 8 or > days, Denies menses variable, Denies period heavy, Denies period light, Denies period normal, Denies period spotting, Denies post hysterectomy, Denies postmenopausal, Denies premenarcheal Musculoskeletal: Reports as per HPI Integumentary: Reports as per HPI Neurological: Reports as per HPI, Denies aphasia, Denies ataxia, Denies balance difficulties, Denies burning pain, Denies change in mentation, Denies change in smell/taste, Denies change in speech, Denies confusion, Denies convulsions, Denies double vision, Denies gait dysfunction, Denies head injury, Denies headaches, Denies hearing difficulties, Denies lack of coordination, Denies loss of vision, Denies memory loss, Denies migraines, Denies motor disturbance, Denies numbness, Denies paralysis, Denies paresthesias, Denies seizures, Denies sensory deficit, Denies spasticity, Denies syncope, Denies tic, Denies tingling, Denies transient paralysis, Denies tremors, Denies vertigo, Denies weakness, Denies visual changes Psychiatric: Reports as per HPI, Denies anhedonia, Denies anxiety, Denies anxiety attacks, Denies change in appetite, Denies change in libido, Denies change in sleep habits, Denies confusion, Denies depression, Denies difficulty concentrating, Denies disorientation, Denies hallucinations, Denies hopelessness, Denies hypersomnia, Denies insomnia, Denies irritability, Denies memory loss, Denies mood swings, Denies paranoia, Denies sadness/tearfulness, Denies sleep disturbances, Denies suicidal ideation Endocrine: Reports as per HPI, Denies cold intolerance, Denies deepening of the voice, Denies excessive sweating, Denies excessive thirst, Denies fatigue, Denies flushing, Denies heat intolerance, Denies high blood sugars, Denies increase in ring/shoe/hat size, Denies low blood sugars, Denies nocturia, Denies palpitations, Denies polydipsia, Denies polyphagia, Denies polyuria, Denies proptosis, Denies recent glucocorticoid use, Denies thyroid mass, Denies weight change Hematologic/Lymphatic: Reports as per HPI, Denies easy bleeding, Denies easy bruising, Denies lymphadenopathy, Denies lymphedema, Denies thrombophilia Past Medical History Past Medical History: Atrial Fibrillation, Coronary Artery Disease (CAD), Cancer, Chest Pain / Angina, Diabetes Mellitus, GERD/Reflux, Hyperlipidemia, Hypertension, Osteoarthritis (OA), Sleep Apnea/CPAP/BIPAP, Thyroid Disorder Additional Past Medical History / Comment(s): skin cancer, restless leg syndrome, varicose veins, IBS, History of Any Multi-Drug Resistant Organisms: None Reported Past Surgical History: Adenoidectomy, Appendectomy, Breast Surgery, Cholecystectomy, Heart Catheterization With Stent, Hysterectomy, Orthopedic Surgery, Pacemaker, Tonsillectomy Additional Past Surgical History / Comment(s): walt cataract, 2 stents, partial thyroidectomy, rt shoulder rotator cuff, walt breast biopsy, metal clip in rt breast Past Anesthesia/Blood Transfusion Reactions: No Reported Reaction Date of Last Stent Placement:: 1998 Type of Cardiac Device: Permanent Pacemaker, Unknown Device Placement Date:: 2014 Past Psychological History: Anxiety Smoking Status: Former smoker Past Alcohol Use History: Occasional Past Drug Use History: None Reported - Past Family History Mother Additional Family Medical History / Comment(s): Mother at age 76 from massive stroke. Brother(s) Additional Family Medical History / Comment(s): The patient had a total of 3 brothers. One brother from melanoma. One brother is with history of coronary artery disease status post CABG. One brother has from colon cancer with history of coronary artery disease. Patient does not have any sisters. Daughter(s) Family Medical History: No Reported History (Healthy 1 daughter) Son(s) History Unknown: Yes (Healthy 3 sons) Additional Family Medical History / Comment(s): Patient has 3 sons and 1 daughter. One son has history of coronary artery disease, second son has history of AICD. Patient has 1 son and 1 daughter with no major medical problems. Father Additional Family Medical History / Comment(s): Father at age 59 from a myocardial infarction. Medications and Allergies Home Medications Medication Instructions Recorded Confirmed Type Apixaban [Eliquis] 5 mg PO BID 04/19/17 02/06/20 History Ascorbic Acid [Vitamin C] 500 mg PO DAILY PRN 04/19/17 02/06/20 History Cholecalciferol [Vitamin D3 (25 3,000 unit PO DAILY 04/19/17 02/06/20 History Mcg = 1000 Iu)] glipiZIDE XL [Glucotrol XL] 2.5 mg PO DAILY 04/19/17 02/06/20 History Levothyroxine Sodium [Synthroid] 75 mcg PO DAILY 05/26/17 02/06/20 History Estradiol 0.05MG/24Hr Biwkptch 1 patch TRANSDERM SUWE 01/13/19 02/06/20 History [Vivelle-Dot 0.05 MG] Isosorbide Mononitrate ER [Imdur] 60 mg PO DAILY tab.er.24h 01/13/19 02/06/20 Rx traMADol HCL [Ultram] 50 mg PO BID PRN 01/13/19 02/06/20 History Nitroglycerin Sl Tabs [Nitrostat] 0.4 mg PO Q5M PRN #25 tab 01/18/19 02/06/20 Rx Aspirin EC [Ecotrin Low Dose] 81 mg PO DAILY 05/09/19 02/06/20 History Atorvastatin [Lipitor] 20 mg PO HS 05/09/19 02/06/20 History Isosorbide Mononitrate ER [Imdur] 90 mg PO HS 05/09/19 02/06/20 History Melatonin 10 mg PO HS 05/09/19 02/06/20 History Spironolactone [Aldactone] 25 mg PO DAILY PRN 05/09/19 02/06/20 History ALPRAZolam [Xanax] 0.25 mg PO BID PRN 09/17/19 02/06/20 History cloNIDine HCL [Catapres] 0.1 mg PO BID PRN 09/17/19 02/06/20 History hydrALAZINE HCL [Apresoline] 100 mg PO Q8H 09/17/19 02/06/20 History Metoprolol Tartrate [Lopressor] 50 mg PO QID 09/18/19 02/06/20 History Allergies Allergy/AdvReac Type Severity Reaction Status Date / Time JORGITO Inhibitors Allergy Severe Swelling Verified 02/06/20 07:27 cortisone Allergy Severe Rash/Hives, Verified 02/06/20 07:27 high BP hydralazine Allergy Swelling Verified 02/06/20 07:27 Calcium Channel Blocking AdvReac SORES IN Verified 02/06/20 07:27 Agent Dilt MOUTH dust,trees Allergy Unknown Uncoded 02/06/20 03:00 Physical Exam Vitals: Vital Signs Temp Pulse Resp BP Pulse Ox 02/06/20 11:59 60 18 176/94 96 02/06/20 07:12 60 18 119/57 97 02/06/20 06:37 60 17 146/78 98 02/06/20 04:31 62 18 142/67 95 02/06/20 02:55 98.1 F 65 18 186/80 97 Intake and Output 02/06/20 02/06/20 02/06/20 06:59 14:59 22:59 Other: Weight 83.007 kg - Constitutional General appearance: cooperative, no acute distress - EENT Eyes: anicteric sclerae, EOMI, PERRLA, dentition normal, normal appearance - Neck Neck: normal ROM - Respiratory Respiratory: bilateral: CTA, negative: diminished, dullness, rales, rhonchi - Gastrointestinal General gastrointestinal: normal bowel sounds, soft - Integumentary Integumentary: decreased turgor, normal - Musculoskeletal Musculoskeletal: gait normal - Psychiatric Psychiatric: A&O x's 3, appropriate affect, intact judgment & insight Results CBC & Chem 7: 02/06/20 03:10 02/06/20 03:10 Labs: Abnormal Lab Results - Last 24 Hours (Table) 02/06/20 Range/Units 03:10 Sodium 135 L (137-145) mmol/L BUN 28 H (7-17) mg/dL Glucose 130 H (74-99) mg/dL Laboratory Results WBC 7.8 k/uL (3.8-10.6) 02/06/20 03:10 RBC 4.66 m/uL (3.80-5.40) 02/06/20 03:10 Hgb 14.0 gm/dL (11.4-16.0) 02/06/20 03:10 Hct 44.4 % (34.0-46.0) 02/06/20 03:10 MCV 95.5 fL (80.0-100.0) 02/06/20 03:10 MCH 30.2 pg (25.0-35.0) 02/06/20 03:10 MCHC 31.6 g/dL (31.0-37.0) 02/06/20 03:10 RDW 13.4 % (11.5-15.5) 02/06/20 03:10 Plt Count 204 k/uL (150-450) 02/06/20 03:10 Neutrophils % 60 % 02/06/20 03:10 Lymphocytes % 23 % 02/06/20 03:10 Monocytes % 11 % 02/06/20 03:10 Eosinophils % 3 % 02/06/20 03:10 Basophils % 1 % 02/06/20 03:10 Neutrophils # 4.7 k/uL (1.3-7.7) 02/06/20 03:10 Lymphocytes # 1.8 k/uL (1.0-4.8) 02/06/20 03:10 Monocytes # 0.8 k/uL (0-1.0) 02/06/20 03:10 Eosinophils # 0.2 k/uL (0-0.7) 02/06/20 03:10 Basophils # 0.1 k/uL (0-0.2) 02/06/20 03:10 PT 9.8 sec (9.0-12.0) 02/06/20 03:10 INR 0.9 (<1.2) 02/06/20 03:10 APTT 24.4 sec (22.0-30.0) 02/06/20 03:10 Sodium 135 mmol/L (137-145) L 02/06/20 03:10 Potassium 4.6 mmol/L (3.5-5.1) 02/06/20 03:10 Chloride 102 mmol/L (98-107) 02/06/20 03:10 Carbon Dioxide 25 mmol/L (22-30) 02/06/20 03:10 Anion Gap 8 mmol/L 02/06/20 03:10 BUN 28 mg/dL (7-17) H 02/06/20 03:10 Creatinine 0.79 mg/dL (0.52-1.04) 02/06/20 03:10 Est GFR (CKD-EPI)AfAm 79 (>60 ml/min/1.73 sqM) 02/06/20 03:10 Est GFR (CKD-EPI)NonAf 68 (>60 ml/min/1.73 sqM) 02/06/20 03:10 Glucose 130 mg/dL (74-99) H 02/06/20 03:10 Calcium 9.6 mg/dL (8.4-10.2) 02/06/20 03:10 Magnesium 2.0 mg/dL (1.6-2.3) 02/06/20 03:10 Total Bilirubin 0.5 mg/dL (0.2-1.3) 02/06/20 03:10 AST 30 U/L (14-36) 02/06/20 03:10 ALT 23 U/L (4-34) 02/06/20 03:10 Alkaline Phosphatase 70 U/L (38-126) 02/06/20 03:10 Troponin I <0.012 ng/mL (0.000-0.034) 02/06/20 08:34 Total Protein 7.0 g/dL (6.3-8.2) 02/06/20 03:10 Albumin 4.0 g/dL (3.5-5.0) 02/06/20 03:10 Assessment and Plan Plan: 1. Hypertensive emergency, presenting with initial hip exhaustion-like sym ptoms, angina, with chest pain radiating to the jaw, troponins are negative, 3, cardiology to see the patient, blood pressure control, IV fluids, temperature modulation as an outpatient, patient was advised, continue on statins, and beta william hold HydroDiuril for now, can restart on discharge, continue on Imdur 60 mg a.m. and 90 mg at bedtime, Lopressor 50 mg 4 times a day, aspirin. Consult with cardiology 2. Uncontrolled hypertension. Hydralazine 100 mg every 8 hours, Imdur 60, a.m. 90 at bedtime, patient has ALLERGY to jorgito inhibition as well as calcium channel blockers diltiazem, patient will have when necessary hydralazine, patient might need labetalol instead of metoprolol 3. History of coronary artery disease with prior stent placements, [facility]. Continue as in #1. 3 Paroxysmal atrial fibrillation on eliquis. Metoprolol 4. Heat exhaustion/heat related injury, related to gardening exposure yesterday, advice regarding avoidance of temperature about 84, use of protective shades and clothing, and core temperature cooling through fluids and ice drinks 5 Hyperlipidemia. Continue statin. 6 Diabetes mellitus type 2. Continue glipizide 2.5 mg daily. 7 Obstructive sleep apnea. 8 Hypothyroidism. Continue levothyroxine 75 g daily Patient will be admitted to the hospital for a minimum of 2 night stay. Discharge plan: home
[2020-02-06] MEDS ORDERED: ESTRADIOL 0.05 MG/24 HR TOPICAL SCH (15:30)
[2020-02-06] MEDS ORDERED: hydrALAZINE HCL 20 MG/ML 1 ML VIAL IVP PRN (16:08)
[2020-02-06 16:59] LABS: Glucose,Whole Blood 136 mg/dL (75-99)
[2020-02-06] MEDS: INSULIN ASPART (NovoLOG) 100 UNIT/ML VIAL SQ SCH ×2 (17:22→21:47)
[2020-02-06] MEDS ORDERED: ATORVASTATIN 20 MG TAB PO SCH (21:00)
[2020-02-06] MEDS ORDERED: ISOSORBIDE MONONITRATE ER 30 MG TAB.ER.24H PO SCH (21:00)
[2020-02-06] MEDS ORDERED: MELATONIN 5 MG TABLET PO SCH (21:00)
[2020-02-06 21:19] LABS: Glucose,Whole Blood 187 mg/dL (75-99)
[2020-02-06] MEDS: APIXABAN 5 MG TAB PO SCH (21:47)
[2020-02-07 06:08] LABS: Cholesterol 155 mg/dL (<200); HDL Cholesterol 46 mg/dL (40-60); LDL Cholesterol,Calculated 71 mg/dL (0-99); Triglycerides 189 mg/dL (<150)
[2020-02-07] MEDS ORDERED: LEVOTHYROXINE 75 MCG TAB PO SCH (06:30)
[2020-02-07 07:04] LABS: Glucose,Whole Blood 128 mg/dL (75-99)
[2020-02-07 08:57] VITALS: BP 185/82; PULSE 59; RESP 16; TEMP 97.9
[2020-02-07] MEDS: INSULIN ASPART (NovoLOG) 100 UNIT/ML VIAL SQ SCH (08:59)
[2020-02-07] MEDS ORDERED: ASPIRIN 325 MG TAB PO SCH (09:00)
[2020-02-07] MEDS ORDERED: ASPIRIN 81 MG PO SCH ×2 (09:00)
[2020-02-07] MEDS ORDERED: ISOSORBIDE MONONITRATE ER 60 MG TAB.ER.24H PO SCH (09:00)
[2020-02-07] MEDS: hydrALAZINE HCL 50 MG TAB PO SCH ×2 (09:03)
[2020-02-07] MEDS: APIXABAN 5 MG TAB PO SCH (09:04)
[2020-02-07] MEDS: METOPROLOL TARTRATE 50 MG TAB PO SCH (09:04)
[2020-02-07] MEDS: HYDROCHLOROTHIAZIDE 25 MG TAB PO SCH (09:05)
--- NOTE | 2020-02-07 09:49 | P.DS ---
Providers Date of admission: 02/06/20 04:49 Attending physician: Jasmine Mccord Consults: 02/06/20 04:49 Consult Physician Urgent Consulting Provider: Patrica Mora Consult Reason/Comments: cp Do you want consulting provider notified?: Yes Primary care physician: Karlo Locke [facility] Course: This is ant 89-year-old female patient of Dr. 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 She has a past medical history of atrial fibrillation on eliquis,coronary artery disease with prior stent placements, the most recent stent was placed in April 2018 accor ding to the patient, hypertension, hyperlipidemia, diabetes mellitus type II, GERD, obstructive sleep apnea, history of permanent pacemaker, paroxysmal atrial fibrillation, hypothyroidism. She had most recent hospitalization in May at which time she presented with chest pain and patient was cleared by cardiology follow-up with her primary furnace mason at that time. Echocardiogram from May 2019 revealed EF 50-55% with mild concentric left ventricular hypertrophy, mild mitral regurgitation, mild tricuspid regurgitation, no pulmonary hypertension. She presents emergency room secondary to uncontrolled blood pressure related to hip exposure earlier during the day, patient was out gardening, when she came back in one hour later, she had chest pain, radiating to the neck, nonsustained, unknown timing, patient also had a headache at that time, no lightheadedness or dizziness, patient denies any palpitation, no shortness of breath. Patient does not have any diarrhea or abdominal pain, no melena hematochezia, emergency room, EKG shows paced rhythm 63, no QTC prolongation, troponin was 0.01 2.012, 0.012, glucose of 1:30, BUN 28, creatinine 0.79, sodium was 135, no urinalysis needed patient was admitted for an observation, secondary to hypertensive urgency with chest pain and headache, heat exhaustion 02/06: Patient was evaluated on morning rounds. She reports she feels much better, denies any chest pain, shortness breath, nausea, vomiting, diarrhea. States she is ready for discharge home. Blood pressure is much better and is actually a little on the lower side this morning at 91/53, heart rate is 57, she denies any dizziness or lightheadedness. She will continue on the hydralazine, Imdur along with metoprolol, and will restart her hydrochlorothiazide. She'll follow-up with her furnace mason Dr. Glaser. Discharge diagnoses 1. Hypertensive emergency 2. Uncontrolled hypertension. 3 Paroxysmal atrial fibrillation on eliquis. 4. Heat exhaustion/heat related injury. 5 Hyperlipidemia. 6 Diabetes mellitus type 2. 7 Obstructive sleep apnea. 8 Hypothyroidism. Plan - Discharge Summary Discharge Rx Participant: No New Discharge Prescriptions: New Aspirin 81 mg PO DAILY chew Hydrochlorothiazide [Hydrodiuril] 25 mg PO DAILY #90 tab Continue Cholecalciferol [Vitamin D3 (25 Mcg = 1000 Iu)] 3,000 unit PO DAILY Ascorbic Acid [Vitamin C] 500 mg PO DAILY PRN PRN Reason: Cold Symptoms glipiZIDE XL [Glucotrol XL] 2.5 mg PO DAILY Apixaban [Eliquis] 5 mg PO BID Levothyroxine Sodium [Synthroid] 75 mcg PO DAILY traMADol HCL [Ultram] 50 mg PO BID PRN PRN Reason: Pain Estradiol 0.05MG/24Hr Biwkptch [Vivelle-Dot 0.05 MG] 1 patch TRANSDERM SUWE Isosorbide Mononitrate ER [Imdur] 60 mg PO DAILY tab.er.24h Nitroglycerin Sl Tabs [Nitrostat] 0.4 mg PO Q5M PRN #25 tab PRN Reason: Chest Pain Spironolactone [Aldactone] 25 mg PO DAILY PRN PRN Reason: Edema Melatonin 10 mg PO HS Atorvastatin [Lipitor] 20 mg PO HS Aspirin EC [Ecotrin Low Dose] 81 mg PO DAILY Isosorbide Mononitrate ER [Imdur] 90 mg PO HS hydrALAZINE HCL [Apresoline] 100 mg PO Q8H ALPRAZolam [Xanax] 0.25 mg PO BID PRN PRN Reason: Anxiety cloNIDine HCL [Catapres] 0.1 mg PO BID PRN PRN Reason: HIGH BLOOD PRESSURE Metoprolol Tartrate [Lopressor] 50 mg PO QID Discharge Medication List Apixaban [Eliquis] 5 mg PO BID 04/19/17 [History] Ascorbic Acid [Vitamin C] 500 mg PO DAILY PRN 04/19/17 [History] Cholecalciferol [Vitamin D3 (25 Mcg = 1000 Iu)] 3,000 unit PO DAILY 04/19/17 [History] glipiZIDE XL [Glucotrol XL] 2.5 mg PO DAILY 04/19/17 [History] Levothyroxine Sodium [Synthroid] 75 mcg PO DAILY 05/26/17 [History] Estradiol 0.05MG/24Hr Biwkptch [Vivelle-Dot 0.05 MG] 1 patch TRANSDERM SUWE 01/13/19 [History] Isosorbide Mononitrate ER [Imdur] 60 mg PO DAILY tab.er.24h 01/13/19 [Rx] traMADol HCL [Ultram] 50 mg PO BID PRN 01/13/19 [History] Nitroglycerin Sl Tabs [Nitrostat] 0.4 mg PO Q5M PRN #25 tab 01/18/19 [Rx] Aspirin EC [Ecotrin Low Dose] 81 mg PO DAILY 05/09/19 [History] Atorvastatin [Lipitor] 20 mg PO HS 05/09/19 [History] Isosorbide Mononitrate ER [Imdur] 90 mg PO HS 05/09/19 [History] Melatonin 10 mg PO HS 05/09/19 [History] Spironolactone [Aldactone] 25 mg PO DAILY PRN 05/09/19 [History] ALPRAZolam [Xanax] 0.25 mg PO BID PRN 09/17/19 [History] cloNIDine HCL [Catapres] 0.1 mg PO BID PRN 09/17/19 [History] hydrALAZINE HCL [Apresoline] 100 mg PO Q8H 09/17/19 [History] Metoprolol Tartrate [Lopressor] 50 mg PO QID 09/18/19 [History] Aspirin 81 mg PO DAILY chew 02/07/20 [Rx] Hydrochlorothiazide [Hydrodiuril] 25 mg PO DAILY #90 tab 02/07/20 [Rx] Follow up Appointment(s)/Referral(s): Karlo Locke MD [Primary Care Provider] - 1-2 days Malou Glaser MD [REFERRING] - 1 Week Discharge Disposition: HOME SELF-CARE
== END 2020-02-07 10:37 | disposition home or self-care (01) ==
LOC: EC 02:53 → 1SOBS 04:49
PROVIDERS: ADMIT Family Medicine; ATTEND Family Medicine
DX: I16.1 Hypertensive emergency (principal); I10 Essential (primary) hypertension; I48.0 Paroxysmal atrial fibrillation; T67.5XXA Heat exhaustion, unspecified, initial encounter; E78.5 Hyperlipidemia, unspecified; E11.9 Type 2 diabetes mellitus without complications; G47.33 Obstructive sleep apnea (adult) (pediatric); E89.0 Postprocedural hypothyroidism; I25.118 Atherosclerotic heart disease of native coronary artery with other forms of angina pectoris; K21.9 Gastro-esophageal reflux disease without esophagitis; M19.90 Unspecified osteoarthritis, unspecified site; G25.81 Restless legs syndrome; I83.90 Asymptomatic varicose veins of unspecified lower extremity; K58.9 Irritable bowel syndrome, unspecified; F41.9 Anxiety disorder, unspecified; I49.1 Atrial premature depolarization; Z03.818 Encounter for observation for suspected exposure to other biological agents ruled out; Z79.01 Long term (current) use of anticoagulants; Z79.84 Long term (current) use of oral hypoglycemic drugs; Z79.890 Hormone replacement therapy; Z79.891 Long term (current) use of opiate analgesic; Z79.82 Long term (current) use of aspirin; Z79.899 Other long term (current) drug therapy; Z88.8 Allergy status to other drugs, medicaments and biological substances; Z91.09 Other allergy status, other than to drugs and biological substances; Z99.89 Dependence on other enabling machines and devices; Z85.828 Personal history of other malignant neoplasm of skin; Z90.89 Acquired absence of other organs; Z90.49 Acquired absence of other specified parts of digestive tract; Z98.890 Other specified postprocedural states; Z95.5 Presence of coronary angioplasty implant and graft; Z90.710 Acquired absence of both cervix and uterus; Z95.0 Presence of cardiac pacemaker; Z98.41 Cataract extraction status, right eye; Z98.42 Cataract extraction status, left eye; Z87.39 Personal history of other diseases of the musculoskeletal system and connective tissue; Z87.891 Personal history of nicotine dependence; Z82.3 Family history of stroke; Z80.8 Family history of malignant neoplasm of other organs or systems; Z82.49 Family history of ischemic heart disease and other diseases of the circulatory system; Z80.0 Family history of malignant neoplasm of digestive organs; X30.XXXA Exposure to excessive natural heat, initial encounter; Y93.H2 Activity, gardening and landscaping
CPT/HCPCS: 99285; 36415; 93005; 80061; 80053; 83735; 84484; 85025; 85610; 85730; 71046; G0378 ×2; U0003

== ENCOUNTER 2020-02-27 09:33 | Observation (INO) | payer MEDICARE ==
[2020-02-27 10:56] LABS: Basophils # (A) 0.1 k/uL (0-0.2); Basophils % (A) 1 %; Eosinophils # (A) 0.3 k/uL (0-0.7); Eosinophils % (A) 3 %; HCT 45.5 % (34.0-46.0); HGB 14.4 gm/dL (11.4-16.0); Lymphocytes # (A) 1.4 k/uL (1.0-4.8); Lymphocytes % (A) 19 %; MCH 30.2 pg (25.0-35.0); MCHC 31.7 g/dL (31.0-37.0); MCV 95.4 fL (80.0-100.0); Mean Platelet Volume 7.6; Monocytes # (A) 0.7 k/uL (0-1.0); Monocytes % (A) 9 %; Neutrophils # (A) 4.8 k/uL (1.3-7.7); Neutrophils % (A) 64 %; Platelet Count 229 k/uL (150-450); RBC 4.77 m/uL (3.80-5.40); RDW 13.3 % (11.5-15.5); WBC 7.4 k/uL (3.8-10.6)
[2020-02-27 10:57] LABS: Albumin 3.6 g/dL (3.5-5.0); Calcium 9.5 mg/dL (8.4-10.2); Potassium 4.4 mmol/L (3.5-5.1); Total Bilirubin 0.6 mg/dL (0.2-1.3); Total Protein 6.3 g/dL (6.3-8.2)
--- NOTE | 2020-02-27 11:00 | ED ---
Neuro HPI - General Chief Complaint: Neuro Symptoms/Deficit Stated Complaint: leg numbness/High BP Time Seen by Provider: 02/27/20 09:44 Source: patient, RN notes reviewed Mode of arrival: wheelchair Limitations: no limitations - History of Present Illness Is the patient presenting with stroke symptoms?: No Initial Comments: This 89-year-old female who states she had the onset around 3 AM this morning of some numbness her left leg which later spread into her right leg no weakness no headache blurry vision nausea vomiting sweats palpitations no other findings. She did state that her blood pressure was markedly elevated at 209/108 she also had a pounding type headache. She states that she did take her medications and the pressure improved to 136/95 with resolution of her headache. She is does state the past she was told by one physician that she had neuropathy in by another when she did not. She did contact her cube cutter who did recommend evaluation. Other complaints no other modifying factors. She also states she does have lumbar disc disease and was not sure whether this is related or not she has no new back pain no reports of injury. - Related Data Home Medications: Home Medications Medication Instructions Recorded Confirmed Apixaban [Eliquis] 5 mg PO BID 04/19/17 02/06/20 Ascorbic Acid [Vitamin C] 500 mg PO DAILY PRN 04/19/17 02/06/20 Cholecalciferol [Vitamin D3 (25 3,000 unit PO DAILY 04/19/17 02/06/20 Mcg = 1000 Iu)] glipiZIDE XL [Glucotrol XL] 2.5 mg PO DAILY 04/19/17 02/06/20 Levothyroxine Sodium [Synthroid] 75 mcg PO DAILY 05/26/17 02/06/20 Estradiol 0.05MG/24Hr Biwkptch 1 patch TRANSDERM SUWE 01/13/19 02/06/20 [Vivelle-Dot 0.05 MG] traMADol HCL [Ultram] 50 mg PO BID PRN 01/13/19 02/06/20 Aspirin EC [Ecotrin Low Dose] 81 mg PO DAILY 05/09/19 02/06/20 Atorvastatin [Lipitor] 20 mg PO HS 05/09/19 02/06/20 Isosorbide Mononitrate ER [Imdur] 90 mg PO HS 05/09/19 02/06/20 Melatonin 10 mg PO HS 05/09/19 02/06/20 Spironolactone [Aldactone] 25 mg PO DAILY PRN 05/09/19 02/06/20 ALPRAZolam [Xanax] 0.25 mg PO BID PRN 09/17/19 02/06/20 cloNIDine HCL [Catapres] 0.1 mg PO BID PRN 09/17/19 02/06/20 hydrALAZINE HCL [Apresoline] 100 mg PO Q8H 09/17/19 02/06/20 Metoprolol Tartrate [Lopressor] 50 mg PO QID 09/18/19 02/06/20 Previous Rx's Medication Instructions Recorded Isosorbide Mononitrate ER [Imdur] 60 mg PO DAILY tab.er.24h 01/13/19 Nitroglycerin Sl Tabs [Nitrostat] 0.4 mg PO Q5M PRN #25 tab 01/18/19 Aspirin 81 mg PO DAILY chew 02/07/20 Hydrochlorothiazide [Hydrodiuril] 25 mg PO DAILY #90 tab 02/07/20 Allergies/Adverse Reactions: Allergies Allergy/AdvReac Type Severity Reaction Status Date / Time JORGITO Inhibitors Allergy Severe Swelling Verified 02/27/20 13:39 cortisone Allergy Severe Rash/Hives, Verified 02/27/20 13:39 high BP hydralazine Allergy Swelling Verified 02/27/20 13:39 Calcium Channel Blocking AdvReac SORES IN Verified 02/27/20 13:39 Agent Dilt MOUTH dust,trees Allergy Itching Uncoded 02/27/20 13:39 Review of Systems ROS Statement: Those systems with pertinent positive or pertinent negative responses have been documented in the HPI. ROS Other: All systems not noted in ROS Statement are negative. General Exam - General Exam Comments Initial Comments: This is a well-developed well-nourished awake alert oriented 3 Limitations: no limitations General appearance: alert, in no apparent distress Head exam: Present: atraumatic, normocephalic, normal inspection Eye exam: Present: normal appearance, PERRL, EOMI. Absent: scleral icterus, c onjunctival injection, periorbital swelling ENT exam: Present: normal exam, mucous membranes moist Neck exam: Present: normal inspection, full ROM, other. Absent: tenderness, meningismus, lymphadenopathy Respiratory exam: Present: normal lung sounds bilaterally. Absent: respiratory distress, wheezes, rales, rhonchi, stridor Cardiovascular Exam: Present: regular rate, normal rhythm, normal heart sounds. Absent: systolic murmur, diastolic murmur, rubs, gallop, clicks GI/Abdominal exam: Present: soft, normal bowel sounds. Absent: distended, tenderness, guarding, rebound, rigid Extremities exam: Present: normal inspection, full ROM, normal capillary refill. Absent: tenderness, pedal edema, joint swelling, calf tenderness Back exam: Present: normal inspection Neurological exam: Present: alert, oriented X3, CN II-XII intact Psychiatric exam: Present: normal affect, normal mood Skin exam: Present: warm, dry, intact, normal color. Absent: rash Stroke MDM - Lab Data Result diagrams: 02/27/20 10:39 02/27/20 10:39 Lab Results 02/27/20 02/27/20 02/27/20 Range/Units 10:39 10:39 10:39 WBC 7.4 (3.8-10.6) k/uL RBC 4.77 (3.80-5.40) m/uL Hgb 14.4 (11.4-16.0) gm/dL Hct 45.5 (34.0-46.0) % MCV 95.4 (80.0-100.0) fL MCH 30.2 (25.0-35.0) pg MCHC 31.7 (31.0-37.0) g/dL RDW 13.3 (11.5-15.5) % Plt Count 229 (150-450) k/uL Neutrophils % 64 % Lymphocytes % 19 % Monocytes % 9 % Eosinophils % 3 % Basophils % 1 % Neutrophils # 4.8 (1.3-7.7) k/uL Lymphocytes # 1.4 (1.0-4.8) k/uL Monocytes # 0.7 (0-1.0) k/uL Eosinophils # 0.3 (0-0.7) k/uL Basophils # 0.1 (0-0.2) k/uL PT 10.0 (9.0-12.0) sec INR 1.0 (<1.2) APTT 25.4 (22.0-30.0) sec Sodium 134 L (137-145) mmol/L Potassium 4.4 (3.5-5.1) mmol/L Chloride 103 (98-107) mmol/L Carbon Dioxide 26 (22-30) mmol/L Anion Gap 5 mmol/L BUN 28 H (7-17) mg/dL Creatinine 0.71 (0.52-1.04) mg/dL Est GFR (CKD-EPI)AfAm 89 (>60 ml/min/1.73 sqM) Est GFR (CKD-EPI)NonAf 77 (>60 ml/min/1.73 sqM) Glucose 137 H (74-99) mg/dL Calcium 9.5 (8.4-10.2) mg/dL Total Bilirubin 0.6 (0.2-1.3) mg/dL AST 25 (14-36) U/L ALT 27 (4-34) U/L Alkaline Phosphatase 65 (38-126) U/L Creatine Kinase 76 (30-135) U/L Troponin I (0.000-0.034) ng/mL Total Protein 6.3 (6.3-8.2) g/dL Albumin 3.6 (3.5-5.0) g/dL 02/27/20 Range/Units 10:39 WBC (3.8-10.6) k/uL RBC (3.80-5.40) m/uL Hgb (11.4-16.0) gm/dL Hct (34.0-46.0) % MCV (80.0-100.0) fL MCH (25.0-35.0) pg MCHC (31.0-37.0) g/dL RDW (11.5-15.5) % Plt Count (150-450) k/uL Neutrophils % % Lymphocytes % % Monocytes % % Eosinophils % % Basophils % % Neutrophils # (1.3-7.7) k/uL Lymphocytes # (1.0-4.8) k/uL Monocytes # (0-1.0) k/uL Eosinophils # (0-0.7) k/uL Basophils # (0-0.2) k/uL PT (9.0-12.0) sec INR (<1.2) APTT (22.0-30.0) sec Sodium (137-145) mmol/L Potassium (3.5-5.1) mmol/L Chloride (98-107) mmol/L Carbon Dioxide (22-30) mmol/L Anion Gap mmol/L BUN (7-17) mg/dL Creatinine (0.52-1.04) mg/dL Est GFR (CKD-EPI)AfAm (>60 ml/min/1.73 sqM) Est GFR (CKD-EPI)NonAf (>60 ml/min/1.73 sqM) Glucose (74-99) mg/dL Calcium (8.4-10.2) mg/dL Total Bilirubin (0.2-1.3) mg/dL AST (14-36) U/L ALT (4-34) U/L Alkaline Phosphatase (38-126) U/L Creatine Kinase (30-135) U/L Troponin I <0.012 (0.000-0.034) ng/mL Total Protein (6.3-8.2) g/dL Albumin (3.5-5.0) g/dL - NIH Stroke Scale 1a. Level of Consciousness: (0) alert 1b. LOC Questions: (0) answers correctly 1c. LOC Commands: (0) performs tasks correctly 2. Best Gaze: (0) normal 3. Visual: (0) no visual loss 4. Facial Palsy: (0) normal symmetrical movement 5a. Motor Arm Left: (0) no drift 5b. Motor Arm Right: (0) no drift 6a. Motor Leg Left: (0) no drift 6b. Motor Leg Right: (0) no drift 7. Limb Ataxia: (0) absent 8. Sensory: (0) normal 9. Best Language: (0) no aphasia 10. Dysarthria: (0) normal 11. Extinction/Inattention: (0) no abnormality - Thrombolytic Inclusion/Exclusion Thrombolytic Exclusion Criteria: Symptom Onset > 4.5 Hours - Medical Decision Making Reevaluation patient finds no worsening of the symptoms at that she states she feels slightly better. The presentation is that of lower extremities symptoms of numbness was started on the left leg and moved to the right she believes for maybe some improvement. I did discuss case the patient and with Dr. Martin patient will be admitted with neurological consultation tomorrow - Radiology Data Radiology results: report reviewed, image reviewed (I did review the imaging and reports no evidence of acute findings.) - EKG Data -: EKG Interpreted by Me EKG shows normal: sinus rhythm (Ventricular paced rhythm of 67 QRS 160 QT since QTC 446/[address]-T wave changes) Past Medical History Past Medical History: Atrial Fibrillation, Coronary Artery Disease (CAD), Cancer, Chest Pain / Angina, Diabetes Mellitus, GERD/Reflux, Hyperlipidemia, Hypertension, Osteoarthritis (OA), Sleep Apnea/CPAP/BIPAP, Thyroid Disorder Additional Past Medical History / Comment(s): skin cancer, restless leg syndrome, varicose veins, IBS, History of Any Multi-Drug Resistant Organisms: None Reported Past Surgical History: Adenoidectomy, Appendectomy, Breast Surgery, Cholecystectomy, Heart Catheterization With Stent, Hysterectomy, Orthopedic Surgery, Pacemaker, Tonsillectomy Additional Past Surgical History / Comment(s): walt cataract, 2 stents, partial thyroidectomy, rt shoulder rotator cuff, walt breast biopsy, metal clip in rt breast Past Anesthesia/Blood Transfusion Reactions: No Reported Reaction Date of Last Stent Placement:: 1998 Type of Cardiac Device: Permanent Pacemaker, Unknown Device Placement Date:: 2014 Past Psychological History: Anxiety Past Alcohol Use History: Occasional Past Drug Use History: None Reported - Past Family History Mother Additional Family Medical History / Comment(s): Mother at age 76 from massive stroke. Brother(s) Additional Family Medical History / Comment(s): The patient had a total of 3 brothers. One brother from melanoma. One brother is with history of coronary artery disease status post CABG. One brother has from colon cancer with history of coronary artery disease. Patient does not have any sisters. Daughter(s) Family Medical History: No Reported History (Healthy 1 daughter) Son(s) History Unknown: Yes (Healthy 3 sons) Additional Family Medical History / Comment(s): Patient has 3 sons and 1 daughter. One son has history of coronary artery disease, second son has history of AICD. Patient has 1 son and 1 daughter with no major medical problems. Father Additional Family Medical History / Comment(s): Father at age 59 from a myocardial infarction. Course Vital Signs 02/27/20 02/27/20 02/27/20 09:37 09:40 10:40 Temperature 98.5 F Pulse Rate 72 65 Respiratory 16 18 18 Rate Blood Pressure 118/74 110/56 O2 Sat by Pulse 95 96 Oximetry 02/27/20 02/27/20 11:00 12:00 Temperature Pulse Rate 60 64 Respiratory 18 16 Rate Blood Pressure 105/67 122/70 O2 Sat by Pulse 96 Oximetry - Reevaluation(s) Reevaluation #1: 02/27/20 13:25 I did reevaluate patient several occasions no recurrent symptoms she states she's feeling somewhat better. Disposition Clinical Impression: Transient cerebral ischemia Disposition: ADMITTED IP TO THIS [facility] Condition: Stable Referrals: Karlo Locke MD [Primary Care Provider] - 1-2 days
[2020-02-27 11:03] LABS: Partial Thromboplastin Time 25.4 sec (22.0-30.0)
--- NOTE | 2020-02-27 12:33 | XR ---
EXAMINATION TYPE: XR chest 2V DATE OF EXAM: 02/27/2020 COMPARISON: Chest x-ray February 06, 2020. HISTORY: Hypertension with numbness and weakness. TECHNIQUE: Frontal and lateral views of the chest are obtained. FINDINGS: There is chronic parenchymal change without suspicious new focal air space opacity, pleura l effusion, or pneumothorax seen. The cardiac silhouette size remains mildly enlarged with dual lead pacemaker and atherosclerotic aorta. The osseous structures are intact. IMPRESSION: Chronic changes and cardiomegaly without acute pulmonary process.
--- NOTE | 2020-02-27 12:35 | CT ---
EXAMINATION TYPE: CT brain wo con DATE OF EXAM: 02/27/2020 HISTORY: Elevated BP, leg weakness, acute stroke suspected. Neuro deficit. CT DLP: 1070.4 mGycm. Automated Exposure Control for Dose Reduction was Utilized. TECHNIQUE: CT scan of the head is performed without contrast. COMPARISON: CT brain May 15, 2019.. FINDINGS: There is no acute intracranial hemorrhage or midline shift identified. There is diffuse v entricular and sulcal prominence consistent with diffuse cerebral atrophy greatest over bilateral fro ntal lobes redemonstrated. Castillo-white matter differentiation fairly well maintained. The globes are intact and the visualized sinuses are clear. Patchy soft tissue density bilateral external auditory canals is felt to reflect cerumen. IMPRESSION: No acute intracranial hemorrhage or midline shift. There is moderate diffuse cerebral a trophy redemonstrated. No significant change from prior.
[2020-02-27] MEDS ORDERED: traMADol 50 MG TAB PO PRN (13:50)
[2020-02-27] MEDS ORDERED: ASCORBIC ACID 500 MG TAB PO PRN (13:50)
[2020-02-27] MEDS ORDERED: SPIRONOLACTONE 25 MG TAB PO PRN (13:50)
[2020-02-27] MEDS ORDERED: ESTRADIOL 0.05 MG/24 HR TOPICAL SCH (14:00)
[2020-02-27] MEDS: SODIUM CHLORIDE 0.9% 1,000 ML IV SCH ×2 (14:02→23:03)
[2020-02-27] MEDS: hydrALAZINE HCL 50 MG TAB PO SCH ×2 (14:04→23:03)
[2020-02-27] MEDS: METOPROLOL TARTRATE 50 MG TAB PO SCH ×2 (16:20→23:03)
[2020-02-27] MEDS: ATORVASTATIN 20 MG TAB PO SCH (20:34)
[2020-02-27] MEDS: APIXABAN 5 MG TAB PO SCH (20:34)
[2020-02-27] MEDS: MELATONIN 5 MG TABLET PO SCH (20:35)
[2020-02-27] MEDS: ISOSORBIDE MONONITRATE ER 30 MG TAB.ER.24H PO SCH (20:35)
[2020-02-28 02:09] LABS: Cholesterol 140 mg/dL (<200); HDL Cholesterol 46 mg/dL (40-60); LDL Cholesterol,Calculated 62 mg/dL (0-99); Triglycerides 160 mg/dL (<150)
[2020-02-28] MEDS: hydrALAZINE HCL 50 MG TAB PO SCH ×3 (06:19→21:56)
[2020-02-28] MEDS: LEVOTHYROXINE 75 MCG TAB PO SCH (06:19)
[2020-02-28] MEDS: INSULIN ASPART (NovoLOG) 100 UNIT/ML VIAL SQ SCH ×4 (07:26→20:14)
[2020-02-28] MEDS: cloNIDine HCL 0.1 MG TAB PO PRN ×2 (07:50→20:14)
[2020-02-28] MEDS: ASPIRIN 81 MG PO SCH ×2 (09:10→09:11)
[2020-02-28] MEDS: METOPROLOL TARTRATE 50 MG TAB PO SCH ×3 (09:11→21:56)
[2020-02-28] MEDS: CHOLECALCIFEROL 1,000 UNIT TAB PO SCH (09:11)
[2020-02-28] MEDS: ISOSORBIDE MONONITRATE ER 60 MG TAB.ER.24H PO SCH (09:11)
[2020-02-28] MEDS: APIXABAN 5 MG TAB PO SCH ×2 (09:13→20:14)
[2020-02-28 11:16] LABS: Glucose,Whole Blood 81 mg/dL (75-99)
--- NOTE | 2020-02-28 12:43 | P.HPIM ---
History of Present Illness H&P Date: 02/28/20 Chief Complaint: high blood pressure History of Present Illness This is ant 89-year-old female patient of Dr. Locke and who follows with a catering truck driver at [facility]. She has a past medical history of paroxysmal atrial fibrillation on eliquis, coronary artery disease with prior stent placements, hypertension, hyperlipidemia, diabetes mellitus type II, GERD, obstructive sleep apnea, history of permanent pacemaker, hypothyroidism. Patient states that she was at her catering truck driver's office on Friday and medication changes were made to Lopressor increasing dose to 100 mg 3 times daily and Catapres was changed to 0.1 mg twice daily and to continue as needed as well. Dyazide was discontinued. She was to return in one month for recheck. She states that yesterday her blood pressure went crazy and she was 200/100+ during the night. She states she also had some numbness of developed in both legs initially in the left leg and then went to the right leg gradually going up. She denies any visual changes, no slurred speech, no upper extremity weakness. Patient came into [facility] emergency center for evaluation. CBC was unremarkable. INR 1. Sodium 134, potassium 4.4, chloride 103, CO2 26, BUN 28 creatinine 0.71. Blood sugar 137. EKG was a paced rhythm. Initial blood pressure 118/74, heart rate 72, pulse ox 95% on room air, afebrile. Patient was given 1 L of IV fluids. Patient was placed on the cardiac observation unit. At the time of our evaluation, recheck of her blood pressure was 189/96. Patient has been resumed on her home medications. Review of Systems Constitutional: No fever, no chills, no night sweats. No weight change. No weakness, fatigue or lethargy. No daytime sleepiness. EENT: No headache. No blurred vision or double vision, no loss of vision. No loss of Hearing, no ringing in the ears, reports dizziness. No nasal drainage or congestion. No epistaxis. No sore throat. Lungs: Reports shortness of breath, cough, no sputum production. No wheezing. Cardiovascular: Reports chest pain, no lower extremity edema. No palpitations. No paroxysmal nocturnal dyspnea. No orthopnea. No lightheadedness or dizziness. No syncopal episodes. Reports abnormal blood pressure readings. Abdominal: No abdominal pain. No nausea, vomiting. No diarrhea. No constipation. No bloody or tarry stools.. No loss of appetite. Genitourinary: No dysuria, increased frequency, urgency. No urinary retention. Musculoskeletal: No myalgias. No muscle weakness, no gait dysfunction, no frequent falls. No back pain. No neck pain. Integumentary: No wounds, no lesions. No rash or pruritus. No unusual bruising. No change in hair or nails. Neurologic: No aphasia. No facial droop. No change in mentation. No head injury. No headache. No paralysis. Numbness to the bilateral lower legs, resolved.. Psychiatric: No depression. No anxiety. No mood swings. Endocrine: No abnormal blood sugars. No weight change. No excessive sweating or thirst. No cold intolerance. Physical Examination Gen: This is an 89-year-old female. Patient is sitting on edge of bed and appears to be in no acute distress. HEENT: Head is atraumatic, normocephalic. Pupils equal, round. Sclerae is anicteric. NECK: Supple. No JVD. No lymphadenopathy. No thyromegaly. LUNGS: Clear to auscultation. No wheezes or rhonchi. No intercostal retractions. HEART: Regular rate and rhythm. Systolic murmur. ABDOMEN: Soft. Bowel sounds are present. No masses. No tenderness. EXTREMITIES: No pedal edema. No calf tenderness. Dorsalis pedis +2 bilaterally. NEUROLOGICAL: Patient is awake, alert and oriented x3. Cranial nerves 2 through 12 are grossly intact. Assessment and Plan 1. Uncontrolled hypertension. Continue Catapres 0.1 mg 3 times daily as needed, hydralazine 100 mg every 8 hours, Lopressor 100 mg 3 times daily, Aldactone 25 mg daily as needed. 2. History of non-ST elevated myocardial infarction, September 2019. No complaints of chest pain. 3. History of coronary artery disease with prior stent placements, [facility]. 4. Paroxysmal atrial fibrillation on eliquis. Continue Lopressor and eliquis. 5. Hypertension. Continue Catapres, hydralazine 100 mg 3 times daily, Imdur, Aldactone. 6. Hyperlipidemia. Continue Lipitor. 7. Diabetes mellitus type 2. Continue glipizide 2.5 mg daily, NovoLog scale. 8. Obstructive sleep apnea. 9. Hypothyroidism. Continue levothyroxine 75 g daily. 10. COVID-19 infection not present. Patient placed as OBV status. Discharge plan: Monitor overnight and discharged home tomorrow Impression and plan of care have been directed as dictated by the signing physician. Tereza Arnett nurse practitioner acting as scribe for signing physician. Past Medical History Past Medical History: Atrial Fibrillation, Coronary Artery Disease (CAD), Cancer, Chest Pain / Angina, Diabetes Mellitus, GERD/Reflux, Hyperlipidemia, Hypertension, Osteoarthritis (OA), Sleep Apnea/CPAP/BIPAP, Thyroid Disorder Additional Past Medical History / Comment(s): skin cancer, restless leg syndrome, varicose veins, IBS, History of Any Multi-Drug Resistant Organisms: None Reported Past Surgical History: Adenoidectomy, Appendectomy, Breast Surgery, Cholecystectomy, Heart Catheterization With Stent, Hysterectomy, Orthopedic S urgery, Pacemaker, Tonsillectomy Additional Past Surgical History / Comment(s): walt cataract, 2 stents, partial thyroidectomy, rt shoulder rotator cuff, walt breast biopsy, metal clip in rt breast Past Anesthesia/Blood Transfusion Reactions: No Reported Reaction Date of Last Stent Placement:: 1998 Type of Cardiac Device: Permanent Pacemaker, Unknown Device Placement Date:: 2014 Past Psychological History: Anxiety Smoking Status: Former smoker Past Alcohol Use History: Occasional Additional Past Alcohol Use History / Comment(s): The patient was a smoker briefly as a kid. She drinks alcohol occasionally. Past Drug Use History: None Reported - Past Family History Mother Additional Family Medical History / Comment(s): Mother at age 76 from massive stroke. Brother(s) Additional Family Medical History / Comment(s): The patient had a total of 3 brothers. One brother from melanoma. One brother is with history of coronary artery disease status post CABG. One brother has from colon cancer with history of coronary artery disease. Patient does not have any sisters. Daughter(s) Family Medical History: No Reported History (Healthy 1 daughter) Son(s) History Unknown: Yes (Healthy 3 sons) Additional Family Medical History / Comment(s): Patient has 3 sons and 1 daughter. One son has history of coronary artery disease, second son has history of AICD. Patient has 1 son and 1 daughter with no major medical problems. Father Additional Family Medical History / Comment(s): Father at age 59 from a myocardial infarction. Medications and Allergies Home Medications Medication Instructions Recorded Confirmed Type Apixaban [Eliquis] 5 mg PO BID 04/19/17 02/27/20 History Ascorbic Acid [Vitamin C] 500 mg PO DAILY PRN 04/19/17 02/27/20 History Cholecalciferol [Vitamin D3 (25 3,000 unit PO DAILY 04/19/17 02/27/20 History Mcg = 1000 Iu)] glipiZIDE XL [Glucotrol XL] 2.5 mg PO DAILY 04/19/17 02/27/20 History Levothyroxine Sodium [Synthroid] 75 mcg PO DAILY 05/26/17 02/27/20 History Estradiol 0.05MG/24Hr Biwkptch 1 patch TRANSDERM SUWE 01/13/19 02/27/20 History [Vivelle-Dot 0.05 MG] Isosorbide Mononitrate ER [Imdur] 60 mg PO DAILY tab.er.24h 01/13/19 02/27/20 Rx traMADol HCL [Ultram] 50 mg PO BID PRN 01/13/19 02/27/20 History Nitroglycerin Sl Tabs [Nitrostat] 0.4 mg PO Q5M PRN #25 tab 01/18/19 02/27/20 Rx Atorvastatin [Lipitor] 20 mg PO HS 05/09/19 02/27/20 History Isosorbide Mononitrate ER [Imdur] 90 mg PO HS 05/09/19 02/27/20 History Melatonin 10 mg PO HS 05/09/19 02/27/20 History Spironolactone [Aldactone] 25 mg PO DAILY PRN 05/09/19 02/27/20 History ALPRAZolam [Xanax] 0.25 mg PO BID PRN 09/17/19 02/27/20 History cloNIDine HCL [Catapres] 0.1 mg PO TID PRN 09/17/19 02/27/20 History hydrALAZINE HCL [Apresoline] 100 mg PO Q8H 09/17/19 02/27/20 History Aspirin 81 mg PO DAILY chew 02/07/20 02/27/20 Rx Aspirin EC [Ecotrin] 650 mg PO ONCE PRN 02/27/20 02/27/20 History Metoprolol Tartrate [Lopressor] 100 mg PO TID 02/27/20 02/27/20 History Allergies Allergy/AdvReac Type Severity Reaction Status Date / Time JORGITO Inhibitors Allergy Severe Swelling Verified 02/27/20 13:39 cortisone Allergy Severe Rash/Hives, Verified 02/27/20 13:39 high BP hydralazine Allergy Swelling Verified 02/27/20 13:39 Calcium Channel Blocking AdvReac SORES IN Verified 02/27/20 13:39 Agent Dilt MOUTH dust,trees Allergy Itching Uncoded 02/27/20 13:39 Physical Exam Vitals: Vital Signs Temp Pulse Pulse Pulse Pulse Pulse Resp 02/28/20 07:41 97.5 F L 64 16 02/28/20 06:38 97.8 F 79 17 02/28/20 04:50 98.0 F 69 17 02/28/20 03:00 98.0 F 84 18 02/28/20 02:50 98.0 F 84 18 02/28/20 00:48 97.8 F 74 17 02/27/20 22:50 98.2 F 68 16 02/27/20 21:00 98.1 F 65 17 02/27/20 20:50 98.1 F 65 17 02/27/20 14:03 97.9 F 78 79 69 16 02/27/20 14:00 61 16 02/27/20 12:00 64 16 02/27/20 11:00 60 18 02/27/20 10:40 65 18 02/27/20 09:40 18 02/27/20 09:37 98.5 F 72 16 BP BP BP BP Pulse Ox 02/28/20 07:41 162/78 64 L 02/28/20 06:38 165/91 95 02/28/20 04:50 135/68 97 02/28/20 03:00 136/70 95 02/28/20 02:50 136/70 95 02/28/20 00:48 129/73 96 02/27/20 22:50 152/83 97 02/27/20 21:00 161/60 97 02/27/20 20:50 161/60 97 02/27/20 14:03 129/75 136/83 119/73 98 02/27/20 14:00 110/60 100 02/27/20 12:00 122/70 02/27/20 11:00 105/67 96 02/27/20 10:40 110/56 96 02/27/20 09:40 02/27/20 09:37 118/74 95 Intake and Output 02/27/20 02/28/20 02/28/20 22:59 06:59 14:59 Intake Total 240 1240 Balance 240 1240 Intake: Intake, IV Titration 1000 Amount Sodium Chloride 0.9% 1, 1000 000 ml @ 100 mls/hr IV . Q10H DULCE Rx#:[id number] Oral 240 240 Other: Voiding Method Toilet Toilet # Voids 1 3 Results CBC & Chem 7: 02/27/20 10:39 02/27/20 10:39 Labs: Abnormal Lab Results - Last 24 Hours (Table) 02/27/20 02/27/20 Range/Units 10:39 10:39 Sodium 134 L (137-145) mmol/L BUN 28 H (7-17) mg/dL Glucose 137 H (74-99) mg/dL Triglycerides 160 H (<150) mg/dL Thrombosis Risk Factor Assmnt - Choose All That Apply Any of the Below Risk Factors Present?: Yes Other congenital or acquired thrombophilia - If yes, enter type in comment: No
--- NOTE | 2020-02-28 16:37 | P.CNNES ---
History of Present Illness Consult date: 02/28/20 Requesting physician: Conrad Treadwell Reason for Consult: Lower extremity numbness History of Present Illness: Patient is a 89-year-old female, with history of hypertension, diabetes was admitted to the hospital after she developed acute onset of numbness of her left leg which later spread into her right leg, no weakness or headache, blurred vision nausea or vomiting. Her symptoms started at 3 AM yesterday morning on 0 02/27/2020 with almost sudden onset of numbness of the left leg from toes up to the knee. Shortly after she noticed symptoms in the right foot, that gradually ascended to the right below knee region. Patient states that she tried to walk, thinking symptoms will go away but it continued. Patient also started having headache pointing to the frontal region, which she typically gets whenever her blood pressure is high. She checked her blood pressure, which gradually went up to 209/100. Patient arrived to the ER at 9:33 AM, about 6 hours after onset of symptoms. Her blood pressure on arrival was 118/74, pulse rate 72, temperature 98.5. After took her blood pressure medication, that improved to 136/95. The headache resolved. She was not a candidate for TPA. Patient is also on Apixaban 5 mg twice a day and aspirin 81 mg daily. At present she has no symptoms. Patient underwent Chest x-ray showed chronic changes and cardiomegaly without acute pulmonary process. CT head showed no acute intracranial hemorrhage or midline shift. There is moderate diffuse cerebral atrophy redemonstrated. No significant change from prior. EKG shows ventricular paced rhythm. Her blood test shows normal CBC, PT/PTT. Sodium 134 potassium 4.4, BUN 28, creatinine 0.71. Hepatic panel normal. Total cholesterol 140, LDL 62, HDL is 46 and triglycerides 160. Castillo virus PCR negative. Patient states that she gets a headache only whenever her blood pressure goes high. She has hypertension since 1998. Also has diabetes for last 4-5 years. She is a nonsmoker. Patient also has history of spinal stenosis of the lumbar spine. She used to get shots in the back. Patient states that she occasionally falls, uses cane. Patient's blood pressure medications have been changed. She is a pacemaker placed 5 years ago. She has history of multiple cardiac stenting. Review of Systems As above. All other review of systems unremarkable. Denies any chest pain shortness of breath wheezing or cough. Denies double vision, loss of vision. Denies abdominal pain nausea vomiting diarrhea. Patient does have back pain. Past Medical History Past Medical History: Atrial Fibrillation, Coronary Artery Disease (CAD), Cancer, Chest Pain / Angina, Diabetes Mellitus, GERD/Reflux, Hyperlipidemia, Hypertension, Osteoarthritis (OA), Sleep Apnea/CPAP/BIPAP, Thyroid Disorder Additional Past Medical History / Comment(s): skin cancer, restless leg syndrome, varicose veins, IBS, History of Any Multi-Drug Resistant Organisms: None Reported Past Surgical History: Adenoidectomy, Appendectomy, Breast Surgery, Cholecystectomy, Heart Catheterization With Stent, Hysterectomy, Orthopedic Surgery, Pacemaker, Tonsillectomy Additional Past Surgical History / Comment(s): walt cataract, 2 stents, partial thyroidectomy, rt shoulder rotator cuff, walt breast biopsy, metal clip in rt breast Past Anesthesia/Blood Transfusion Reactions: No Reported Reaction Date of Last Stent Placement:: 1998 Type of Cardiac Device: Permanent Pacemaker, Unknown Device Placement Date:: 2014 Past Psychological History: Anxiety Smoking Status: Former smoker Past Alcohol Use History: Occasional Additional Past Alcohol Use History / Comment(s): The patient was a smoker briefly as a kid. She drinks alcohol occasionally. Past Drug Use History: None Reported - Past Family History Mother Additional Family Medical History / Comment(s): Mother at age 76 from massive stroke. Brother(s) Additional Family Medical History / Comment(s): The patient had a total of 3 brothers. One brother from melanoma. One brother is with history of coronary artery disease status post CABG. One brother has from colon cancer with history of coronary artery disease. Patient does not have any sisters. Daughter(s) Family Medical History: No Reported History (Healthy 1 daughter) Son(s) History Unknown: Yes (Healthy 3 sons) Additional Family Medical History / Comment(s): Patient has 3 sons and 1 daughter. One son has history of coronary artery disease, second son has history of AICD. Patient has 1 son and 1 daughter with no major medical problems. Father Additional Family Medical History / Comment(s): Father at age 59 from a myocardial infarction. Medications and Allergies Home Medications Medication Instructions Recorded Confirmed Type Apixaban [Eliquis] 5 mg PO BID 04/19/17 02/27/20 History Ascorbic Acid [Vitamin C] 500 mg PO DAILY PRN 04/19/17 02/27/20 History Cholecalciferol [Vitamin D3 (25 3,000 unit PO DAILY 04/19/17 02/27/20 History Mcg = 1000 Iu)] glipiZIDE XL [Glucotrol XL] 2.5 mg PO DAILY 04/19/17 02/27/20 History Levothyroxine Sodium [Synthroid] 75 mcg PO DAILY 05/26/17 02/27/20 History Estradiol 0.05MG/24Hr Biwkptch 1 patch TRANSDERM SUWE 01/13/19 02/27/20 History [Vivelle-Dot 0.05 MG] Isosorbide Mononitrate ER [Imdur] 60 mg PO DAILY tab.er.24h 01/13/19 02/27/20 Rx traMADol HCL [Ultram] 50 mg PO BID PRN 01/13/19 02/27/20 History Nitroglycerin Sl Tabs [Nitrostat] 0.4 mg PO Q5M PRN #25 tab 01/18/19 02/27/20 Rx Atorvastatin [Lipitor] 20 mg PO HS 05/09/19 02/27/20 History Isosorbide Mononitrate ER [Imdur] 90 mg PO HS 05/09/19 02/27/20 History Melatonin 10 mg PO HS 05/09/19 02/27/20 History Spironolactone [Aldactone] 25 mg PO DAILY PRN 05/09/19 02/27/20 History ALPRAZolam [Xanax] 0.25 mg PO BID PRN 09/17/19 02/27/20 History cloNIDine HCL [Catapres] 0.1 mg PO TID PRN 09/17/19 02/27/20 History hydrALAZINE HCL [Apresoline] 100 mg PO Q8H 09/17/19 02/27/20 History Aspirin 81 mg PO DAILY chew 02/07/20 02/27/20 Rx Aspirin EC [Ecotrin] 650 mg PO ONCE PRN 02/27/20 02/27/20 History Metoprolol Tartrate [Lopressor] 100 mg PO TID 02/27/20 02/27/20 History Allergies Allergy/AdvReac Type Severity Reaction Status Date / Time JORGITO Inhibitors Allergy Severe Swelling Verified 02/27/20 13:39 cortisone Allergy Severe Rash/Hives, Verified 02/27/20 13:39 high BP hydralazine Allergy Swelling Verified 02/27/20 13:39 Calcium Channel Blocking AdvReac SORES IN Verified 02/27/20 13:39 Agent Dilt MOUTH dust,trees Allergy Itching Uncoded 02/27/20 13:39 Physical Examination - Vital Signs Vital Signs: Vital Signs Temp Pulse Pulse Pulse Resp BP BP 02/28/20 12:00 71 122/71 02/28/20 07:41 97.5 F L 64 16 162/78 02/28/20 06:38 97.8 F 79 17 165/91 02/28/20 04:50 98.0 F 69 17 135/68 02/28/20 03:00 98.0 F 84 18 136/70 02/28/20 02:50 98.0 F 84 18 136/70 02/28/20 00:48 97.8 F 74 17 129/73 02/27/20 22:50 98.2 F 68 16 152/83 02/27/20 21:00 98.1 F 65 17 161/60 02/27/20 20:50 98.1 F 65 17 161/60 Pulse Ox 02/28/20 12:00 02/28/20 07:41 64 L 02/28/20 06:38 95 02/28/20 04:50 97 02/28/20 03:00 95 02/28/20 02:50 95 02/28/20 00:48 96 02/27/20 22:50 97 02/27/20 21:00 97 02/27/20 20:50 97 Intake and Output 02/27/20 02/28/20 02/28/20 22:59 06:59 14:59 Intake Total 240 1240 880 Balance 240 1240 880 Intake: Intake, IV Titration 1000 400 Amount Sodium Chloride 0.9% 1, 1000 400 000 ml @ 100 mls/hr IV . Q10H COUNTS INCLUDE 234 BEDS AT THE [facility] Rx#:[id number] Oral 240 240 480 Other: Voiding Method Toilet Toilet # Voids 1 3 On examination patient is an elderly female, in no acute distress. Patient is alert awake fully oriented. Speech and language functions are normal. Attention and concentration fund of knowledge is adequate. On cranial nerve examination pupils are round and reactive to light, visual mendez are full, extraocular muscles are intact with no nystagmus. Face is symmetric, tongue protrudes the midline. Palatal elevation and sensation normal. Hearing and shoulder shrug normal. On muscle strength testing there is no pronator drift and the strength is normal in arms and legs distally and proximally. Reflexes are symmetric, normal and plantars downgoing. Sensory touch is equal. No ataxia for [id number] testing. Tone and bulk of muscles normal. Casual gait appears normal. She does use cane. There is no obvious bruit, S1 and S2 audible. Peripheral pulses present. Abdomen soft nontender, chest clear. Results - Laboratory Findings CBC and BMP: 02/27/20 10:39 02/27/20 10:39 Abnormal Lab Findings: Abnormal Labs 02/27/20 02/27/20 10:39 10:39 Sodium 134 L BUN 28 H Glucose 137 H Triglycerides 160 H Assessment and Plan Assessment: * 89-year-old female admitted with transient numbness of left lower leg, that extended to involve the right lower leg, from toes up to below knees bilaterally, which slowly resolved. Uncertain if related to TIA, or related to uncontrolled hypertension, or mechanical from her chronic low back issues. Her symptoms however has now resolved. * Atrial fibrillation on long-term anticoagulation * Diabetes * Hypertension * CAD Plan: * We will check carotid Doppler to rule out carotid stenosis. * Continue Apixaban 5 mg twice a day and aspirin 81 mg daily and statins. * We will check B12, folate, TSH and A1c. * Patient's blood pressure is being monitored closely. * Neurologically clear, if carotid Dopplers comes back normal.
[2020-02-28 16:49] LABS: Glucose,Whole Blood 105 mg/dL (75-99)
--- NOTE | 2020-02-28 19:44 | US ---
EXAMINATION TYPE: US carotid duplex BILAT DATE OF EXAM: 02/28/2020 COMPARISON: US 2013 CLINICAL HISTORY: dizziness, numb legs. HTN EXAM MEASUREMENTS: RIGHT: Peak Systolic Velocity (PSV) cm/sec ----- Right CCA: 49.9 ----- Right ICA: 72.9 ----- Right ECA: 84.6 ICA/CCA ratio: 1.5 RIGHT: End Diastole cm/sec ----- Right CCA: 12.6 ----- Right ICA: 17.8 ----- Right ECA: 11.0 LEFT: Peak Systolic Velocity (PSV) cm/sec ----- Left CCA: 63.1 ----- Left ICA: 106.9 ----- Left ECA: 185.0 ICA/CCA ratio: 1.7 LEFT: End Diastole cm/sec ----- Left CCA: 15.3 ----- Left ICA: 18.9 ----- Left ECA: 0.0 VERTEBRALS (direction of flow): Right Vertebral: Antegrade Left Vertebral: Antegrade Rhythm: Normal Bilateral intimal thickening, plaque bilateral bulb, elevated velocities: left proximal ECA, no signi ficant stenosis. IMPRESSION: The images and measurements suggest close to 50% stenosis in both internal carotid arteries. There is approximate 70% stenosis in the left external carotid artery. There is antegrade flow in the vertebral arteries. Criteria for Assigning % of Stenosis / Diameter reduction (Estimation based on the indirect measurements of the internal carotid artery velocities (ICA PSV). 1. Normal (no stenosis)=ICA PSV < 125 cm/s: ratio < 2.0: ICA EDV<40 cm/s. 2. Less than 50% stenosis=ICA PSV < 125 cm/s: ratio < 2.0: ICA EDV<40 cm/s. 3. 50 to 69% stenosis=ICA PSV of 125 to 230 cm/s: ration 2.0 ? 4.0: ICA EDV 40-100 cm/s. 4. Greater than 70% stenosis to near occlusion= ICA PSV > 230 cm/s: ratio > 4.0: ICA EDV > 100 cm/s. 5. Near occlusion= ICA PSV velocities may be low or undetectable: variable ratio and ICA EDV. 6. Total occlusion=unable to detect flow.
[2020-02-28 19:53] LABS: Glucose,Whole Blood 148 mg/dL (75-99)
[2020-02-28] MEDS: ATORVASTATIN 20 MG TAB PO SCH (20:14)
[2020-02-28] MEDS: ISOSORBIDE MONONITRATE ER 30 MG TAB.ER.24H PO SCH (20:14)
[2020-02-28] MEDS: MELATONIN 5 MG TABLET PO SCH (21:56)
[2020-02-29] MEDS: ALPRAZolam 0.25 MG TAB PO PRN ×2 (00:08→22:54)
[2020-02-29 06:34] LABS: Glucose,Whole Blood 127 mg/dL (75-99)
[2020-02-29] MEDS: LEVOTHYROXINE 75 MCG TAB PO SCH (06:42)
[2020-02-29] MEDS: hydrALAZINE HCL 50 MG TAB PO SCH ×3 (06:43→21:30)
[2020-02-29] MEDS: INSULIN ASPART (NovoLOG) 100 UNIT/ML VIAL SQ SCH ×4 (07:31→21:36)
[2020-02-29] MEDS: CHOLECALCIFEROL 1,000 UNIT TAB PO SCH (07:58)
[2020-02-29] MEDS: ISOSORBIDE MONONITRATE ER 60 MG TAB.ER.24H PO SCH (07:58)
[2020-02-29] MEDS: APIXABAN 5 MG TAB PO SCH ×2 (07:58→21:31)
[2020-02-29] MEDS: METOPROLOL TARTRATE 50 MG TAB PO SCH ×3 (08:01→21:30)
[2020-02-29] MEDS: NITROGLYCERIN SL TABS 0.4 MG TAB SUBLINGUAL PRN ×3 (09:48→10:02)
--- NOTE | 2020-02-29 10:36 | P.DS ---
Providers Date of admission: 02/27/20 13:52 Expected date of discharge: 02/29/20 Attending physician: Fredo Dolan Consults: 02/27/20 13:49 Consult Physician Routine Consulting Provider: Lacho Booth Consult Reason/Comments: Lower extremity numbness Do you want consulting provider notified?: Yes, Notify in am 02/29/20 08:00 Consult Physician Routine Consulting Provider: Zayra Sr Consult Reason/Comments: 50% ICA stenosis Do you want consulting provider notified?: Yes Primary care physician: Karlo [facility] Course: History of Present Illness This is ant 89-year-old female patient of Dr. Locke and who follows with a mechanical systems designer at [facility], [facility]. She has a past medical history of paroxysmal atrial fibrillation on eliquis, coronary artery disease with prior stent placements, hypertension, hyperlipidemia, diabetes mellitus type II, GERD, obstructive sleep apnea, history of permanent pacemaker, hypothyroidism. Patient states that she was at her mechanical systems designer's office on Friday and medication changes were made to Lopressor increasing dose to 100 mg 3 times daily and Catapres was changed to 0.1 mg twice daily and to continue as needed as well. Dyazide was discontinued. She was to return in one month for recheck. She states that yesterday her blood pressure went crazy and she was 200/100+ during the night. She states she also had some numbness of developed in both legs initially in the left leg and then went to the right leg gradually going up. She denies any visual changes, no slurred speech, no upper extremity weakness. Patient came into [facility] emergency center for evaluation. CBC was unremarkable. INR 1. Sodium 134, potassium 4.4, chloride 103, CO2 26, BUN 28 creatinine 0.71. Blood sugar 137. EKG was a paced rhythm. Initial blood pressure 118/74, heart rate 72, pulse ox 95% on room air, afebrile. Patient was given 1 L of IV fluids. Patient was placed on the cardiac observation unit. At the time of our evaluation, recheck of her blood pressure was 189/96. Patient has been resumed on her home medications. 02/28: Patient has been seen by neurology and recommended checking carotid duplex for carotid stenosis. Recommend continuing eliquis, aspirin and statin. Vitamin B12, folate, TSH and hemoglobin A1c were ordered. Carotid ultrasound revealed 50% stenosis in both internal carotid arteries, 70% stenosis in the left external carotid artery. Consult with vascular surgery added to evaluate. Patient has been afebrile, heart rate in the 60s, blood pressure this morning 167/83. Pulse ox 97% on room air. Once patient has been seen by vascular surgeon, patient will be discharged home today in stable condition. Assessment and Plan 1. Uncontrolled hypertension. 2. History of non-ST elevated myocardial infarction, September 2019. 3. History of coronary artery disease with prior stent placements, [facility]. 4. Paroxysmal atrial fibrillation. 5. Hypertension. 6. Hyperlipidemia. 7. Diabetes mellitus type 2. 8. Obstructive sleep apnea. 9. Hypothyroidism. 10. COVID-19 infection not present. Discharge plan: home Impression and plan of care have been directed as dictated by the signing physician. Tereza Arnett nurse practitioner acting as scribe for signing physician. Patient Condition at Discharge: Good Plan - Discharge Summary Discharge Rx Participant: No New Discharge Prescriptions: Continue Cholecalciferol [Vitamin D3 (25 Mcg = 1000 Iu)] 3,000 unit PO DAILY Ascorbic Acid [Vitamin C] 500 mg PO DAILY PRN PRN Reason: Cold Symptoms glipiZIDE XL [Glucotrol XL] 2.5 mg PO DAILY Apixaban [Eliquis] 5 mg PO BID Levothyroxine Sodium [Synthroid] 75 mcg PO DAILY traMADol HCL [Ultram] 50 mg PO BID PRN PRN Reason: Pain Estradiol 0.05MG/24Hr Biwkptch [Vivelle-Dot 0.05 MG] 1 patch TRANSDERM SUWE Isosorbide Mononitrate ER [Imdur] 60 mg PO DAILY tab.er.24h Nitroglycerin Sl Tabs [Nitrostat] 0.4 mg PO Q5M PRN #25 tab PRN Reason: Chest Pain Spironolactone [Aldactone] 25 mg PO DAILY PRN PRN Reason: Edema Melatonin 10 mg PO HS Atorvastatin [Lipitor] 20 mg PO HS Isosorbide Mononitrate ER [Imdur] 90 mg PO HS hydrALAZINE HCL [Apresoline] 100 mg PO Q8H ALPRAZolam [Xanax] 0.25 mg PO BID PRN PRN Reason: Anxiety cloNIDine HCL [Catapres] 0.1 mg PO TID PRN PRN Reason: high blood pressure Aspirin 81 mg PO DAILY chew Aspirin EC [Ecotrin] 650 mg PO ONCE PRN PRN Reason: Chest Pain Metoprolol Tartrate [Lopressor] 100 mg PO TID Discharge Medication List Apixaban [Eliquis] 5 mg PO BID 04/19/17 [History] Ascorbic Acid [Vitamin C] 500 mg PO DAILY PRN 04/19/17 [History] Cholecalciferol [Vitamin D3 (25 Mcg = 1000 Iu)] 3,000 unit PO DAILY 04/19/17 [History] glipiZIDE XL [Glucotrol XL] 2.5 mg PO DAILY 04/19/17 [History] Levothyroxine Sodium [Synthroid] 75 mcg PO DAILY 05/26/17 [History] Estradiol 0.05MG/24Hr Biwkptch [Vivelle-Dot 0.05 MG] 1 patch TRANSDERM SUWE 01/13/19 [History] Isosorbide Mononitrate ER [Imdur] 60 mg PO DAILY tab.er.24h 01/13/19 [Rx] traMADol HCL [Ultram] 50 mg PO BID PRN 01/13/19 [History] Nitroglycerin Sl Tabs [Nitrostat] 0.4 mg PO Q5M PRN #25 tab 01/18/19 [Rx] Atorvastatin [Lipitor] 20 mg PO HS 05/09/19 [History] Isosorbide Mononitrate ER [Imdur] 90 mg PO HS 05/09/19 [History] Melatonin 10 mg PO HS 05/09/19 [History] Spironolactone [Aldactone] 25 mg PO DAILY PRN 05/09/19 [History] ALPRAZolam [Xanax] 0.25 mg PO BID PRN 09/17/19 [History] cloNIDine HCL [Catapres] 0.1 mg PO TID PRN 09/17/19 [History] hydrALAZINE HCL [Apresoline] 100 mg PO Q8H 09/17/19 [History] Aspirin 81 mg PO DAILY chew 02/07/20 [Rx] Aspirin EC [Ecotrin] 650 mg PO ONCE PRN 02/27/20 [History] Metoprolol Tartrate [Lopressor] 100 mg PO TID 02/27/20 [History] Follow up Appointment(s)/Referral(s): Karlo Locke MD [Primary Care Provider] - 1 Week Malou Glaser MD [REFERRING] - 1 Week Discharge Disposition: HOME SELF-CARE
[2020-02-29 11:29] LABS: Glucose,Whole Blood 82 mg/dL (75-99)
[2020-02-29] MEDS: cloNIDine HCL 0.1 MG TAB PO PRN ×2 (11:46→21:30)
[2020-02-29 11:54] LABS: Folate, Serum 16.5 ng/mL
--- NOTE | 2020-02-29 12:53 | P.GSCN ---
History of Present Illness Consult date: 02/29/20 Reason for Consult: Carotid stenosis, TIA History of present illness: Ascencion is a pleasant 89-year-old female with history of hypertension, hyperlipidemia, diabetes, coronary artery disease status post 3 stents, atrial fibrillation status post pacemaker. Early yesterday morning around 3 AM the patient experienced numbness and tingling in her left lower extremity that went up to the knee but then traveled to her right lower extremity to the knee. She got an acute onset headache which she states she gets when her blood pressure is elevated. She checked her blood pressure at home which was 209/100. She went to the emergency department approximately 6 hours after her onset of symptoms on arrival her blood pressure was 118/74, heart rate 72, temperature 98.5. She states by that time she had taken her blood pressure medications. Her headache had resolved. The patient is on Ahlquist 5 mg twice a day and aspirin 81 mg daily. She currently denies any further symptoms, headache has resolved as well as numbness and tingling. Patient denied any chest pain or shortness of breath at this time. She denies any visual changes or weakness, or difficulty speaking. She denies any prior CVAs or TIAs. CT of the brain shows no acute intracranial hemorrhage or midline shift. There is moderate diffuse cerebral atrophy redemonstrated. No significant change from prior. Carotid duplex completed which shows close to 50% stenosis in both internal carotid arteries. There is approximate 70% stenosis of the left external carotid artery. Review of Systems A 14 point review of systems was completed all pertinent positives and negatives as stated in the HPI. Past Medical History Past Medical History: Atrial Fibrillation, Coronary Artery Disease (CAD), Cancer , Chest Pain / Angina, Diabetes Mellitus, GERD/Reflux, Hyperlipidemia, Hypertension, Osteoarthritis (OA), Sleep Apnea/CPAP/BIPAP, Thyroid Disorder Additional Past Medical History / Comment(s): skin cancer, restless leg syndrome, varicose veins, IBS, History of Any Multi-Drug Resistant Organisms: None Reported Past Surgical History: Adenoidectomy, Appendectomy, Breast Surgery, Cholecystectomy, Heart Catheterization With Stent, Hysterectomy, Orthopedic Surgery, Pacemaker, Tonsillectomy Additional Past Surgical History / Comment(s): walt cataract, 2 stents, partial thyroidectomy, rt shoulder rotator cuff, walt breast biopsy, metal clip in rt breast Past Anesthesia/Blood Transfusion Reactions: No Reported Reaction Date of Last Stent Placement:: 1998 Type of Cardiac Device: Permanent Pacemaker, Unknown Device Placement Date:: 2014 Past Psychological History: Anxiety Smoking Status: Former smoker Past Alcohol Use History: Occasional Additional Past Alcohol Use History / Comment(s): The patient was a smoker briefly as a kid. She drinks alcohol occasionally. Past Drug Use History: None Reported - Past Family History Mother Additional Family Medical History / Comment(s): Mother at age 76 from massive stroke. Brother(s) Additional Family Medical History / Comment(s): The patient had a total of 3 brothers. One brother from melanoma. One brother is with history of coronary artery disease status post CABG. One brother has from colon cancer with history of coronary artery disease. Patient does not have any sisters. Daughter(s) Family Medical History: No Reported History (Healthy 1 daughter) Son(s) History Unknown: Yes (Healthy 3 sons) Additional Family Medical History / Comment(s): Patient has 3 sons and 1 daughter. One son has history of coronary artery disease, second son has history of AICD. Patient has 1 son and 1 daughter with no major medical probl ems. Father Additional Family Medical History / Comment(s): Father at age 59 from a myocardial infarction. Medications and Allergies Home Medications Medication Instructions Recorded Confirmed Type Apixaban [Eliquis] 5 mg PO BID 04/19/17 02/27/20 History Ascorbic Acid [Vitamin C] 500 mg PO DAILY PRN 04/19/17 02/27/20 History Cholecalciferol [Vitamin D3 (25 3,000 unit PO DAILY 04/19/17 02/27/20 History Mcg = 1000 Iu)] glipiZIDE XL [Glucotrol XL] 2.5 mg PO DAILY 04/19/17 02/27/20 History Levothyroxine Sodium [Synthroid] 75 mcg PO DAILY 05/26/17 02/27/20 History Estradiol 0.05MG/24Hr Biwkptch 1 patch TRANSDERM SUWE 01/13/19 02/27/20 History [Vivelle-Dot 0.05 MG] Isosorbide Mononitrate ER [Imdur] 60 mg PO DAILY tab.er.24h 01/13/19 02/27/20 Rx traMADol HCL [Ultram] 50 mg PO BID PRN 01/13/19 02/27/20 History Nitroglycerin Sl Tabs [Nitrostat] 0.4 mg PO Q5M PRN #25 tab 01/18/19 02/27/20 Rx Atorvastatin [Lipitor] 20 mg PO HS 05/09/19 02/27/20 History Isosorbide Mononitrate ER [Imdur] 90 mg PO HS 05/09/19 02/27/20 History Melatonin 10 mg PO HS 05/09/19 02/27/20 History Spironolactone [Aldactone] 25 mg PO DAILY PRN 05/09/19 02/27/20 History ALPRAZolam [Xanax] 0.25 mg PO BID PRN 09/17/19 02/27/20 History cloNIDine HCL [Catapres] 0.1 mg PO TID PRN 09/17/19 02/27/20 History hydrALAZINE HCL [Apresoline] 100 mg PO Q8H 09/17/19 02/27/20 History Aspirin 81 mg PO DAILY chew 02/07/20 02/27/20 Rx Aspirin EC [Ecotrin] 650 mg PO ONCE PRN 02/27/20 02/27/20 History Metoprolol Tartrate [Lopressor] 100 mg PO TID 02/27/20 02/27/20 History Allergies Allergy/AdvReac Type Severity Reaction Status Date / Time JORGITO Inhibitors Allergy Severe Swelling Verified 02/27/20 13:39 cortisone Allergy Severe Rash/Hives, Verified 02/27/20 13:39 high BP hydralazine Allergy Swelling Verified 02/27/20 13:39 Calcium Channel Blocking AdvReac SORES IN Verified 02/27/20 13:39 Agent Dilt MOUTH dust,trees Allergy Itching Uncoded 02/27/20 13:39 Surgical - Exam Vital Signs Temp Pulse Resp BP Pulse Ox 98.5 F 72 16 118/74 95 02/27/20 09:37 02/27/20 09:37 02/27/20 09:37 02/27/20 09:37 02/27/20 09:37 General appearance: The patient is alert, oriented, in no acute distress. HET: Head is normocephalic and atraumatic. Pupils are equal and reactive. Neck: Supple without lymphadenopathy. Trachea midline. No audible carotid bruit bilaterally. Heart: S1 S2. Regular rate and rhythm. Lungs: No crackles or wheezes are heard. Abdomen: Soft, nontender, nondistended with bowel sounds. Extremities: Normal skin color and turgor. No cyanosis, rash, ulceration, c lubbing, or edema. Radial and pedal pulses are 2/4 bilaterally. Patient has bilateral lower stomach varicosities. Neurological: No focal deficits. Strength and sensation are grossly intact. Speech is fluent, tongue protrudes midline, no facial drooping. Patient is alert and oriented 3. Results CT brain reviewed and dictated in the HPI. Carotid duplex reviewed and dictated in the HPI. - Labs 02/27/20 10:39 02/27/20 10:39 Abnormal Lab Results - Last 24 Hours (Table) 02/28/20 02/28/20 02/29/20 Range/Units 16:48 19:50 06:32 POC Glucose (mg/dL) 105 H 148 H 127 H (75-99) mg/dL Thyroid panel 02/27/20 Range/Units 10:39 TSH 3.720 (0.465-4.680) mIU/L Pituitary panel 02/27/20 Range/Units 10:39 TSH 3.720 (0.465-4.680) mIU/L Assessment and Plan Assessment: 1. Bilateral ICA stenosis, approximately 50% 2. TIA 3. Hypertension 4. Atrial fibrillation status post pacemaker and currently on Ahlquist 5. Diabetes 6. Hyperlipidemia 7. Coronary artery disease Plan: Maintain optimal blood pressure control. Continue with home medications which include aspirin, atorvastatin, and Eliquis. There is no indication at this time for any vascular surgical intervention. Patient is to follow-up with Dr. Ramirez in the office to monitor carotid stenosis on an outpatient basis. Maintain a heart healthy diet. Thank you for this consultation and allowing us to take part in the care of your patient during her hospital stay. The above dictated assessment and findings were discussed with Dr. Ramirez. The impression and plan of care have been directed as dictated.
[2020-02-29 13:52] LABS: Hemoglobin A1C 7.1 % (4.0-6.0)
[2020-02-29 16:41] LABS: Glucose,Whole Blood 118 mg/dL (75-99)
--- NOTE | 2020-02-29 19:13 | P.PN ---
Subjective Progress Note Date: 02/29/20 Patient in the morning at 9:50 AM started complaining of chest pain "a little bit". Her EKG was normal. Her blood pressure was 190/91. Later at around 3 PM she was laying, then her legs again became numb. This time both lower legs affected equally, about the lower two thirds of the lower legs. Her blood pressure at that time was 160-170 systolic with 70-80 diastolic. Patient still feels numb, cold sensation in the lower legs. She can walk as per her baseline. No focal weakness. No symptoms in the upper limbs, no symptoms in the cranial region. No low back pain. Objective - Vital Signs Vital signs: Vital Signs Temp 97.5 F L 02/29/20 16:00 Pulse 59 L 02/29/20 16:00 Resp 18 02/29/20 16:00 BP 165/78 02/29/20 16:00 Pulse Ox 94 L 02/29/20 16:00 Intake & Output 02/29/20 02/29/20 03/01/20 06:59 18:59 06:59 Intake Total 780 970 Output Total 400 Balance 780 570 Intake: Oral 780 970 Output: Urine 400 Other: Voiding Method Toilet Toilet # Voids 3 - Exam Patient's mental status, speech and language functions are normal. Cranial nerves all are normal. Muscle strength is completely normal in the arms and legs distally and proximally, including detailed testing of the lower limbs. Sensations are slightly decreased from toes up to the upper third of the lower legs bilaterally. No ataxia. Patient walks fairly stable although was walking with slight wide-based and cautious gait. This is probably her baseline gait. - Labs CBC & Chem 7: 02/27/20 10:39 02/27/20 10:39 Labs: Abnormal Lab Results - Last 24 Hours (Table) 02/27/20 02/27/20 02/28/20 Range/Units 10:39 10:39 19:50 POC Glucose (mg/dL) 148 H (75-99) mg/dL Hemoglobin A1c 7.1 H (4.0-6.0) % Vitamin B12 1409.0 H (200.0-944.0) pg/mL 02/29/20 02/29/20 Range/Units 06:32 16:40 POC Glucose (mg/dL) 127 H 118 H (75-99) mg/dL Hemoglobin A1c (4.0-6.0) % Vitamin B12 (200.0-944.0) pg/mL Assessment and Plan Assessment: * 89-year-old female admitted with transient numbness of left lower leg, that extended to involve the right lower leg, from toes up to below knees bilaterally, which slowly resolved. Patient had a second similar spell today. She still feels numbness of the distal lower legs. Her examination is completely stable. TIA/CVA appears very unlikely, with normal examination, and bilateral nature of symptoms. Uncertain if related to uncontrolled hypertension, peripheral vascular issue, or mechanical from her chronic low back issues. Her symptoms however has now resolved. * Atrial fibrillation on long-term anticoagulation * Diabetes * Hypertension * CAD Plan: * Carotid Doppler revealed 50% stenosis in both ICAs. There is approximate 70% stenosis in the left external carotid artery. Antegrade flow in both vertebral arteries. Patient was seen by vascular surgery, who are recommending medical management. * Continue Apixaban 5 mg twice a day and aspirin 81 mg daily and statins. * B12 1409, folate 16.5, TSH 3.72 and A1c 7.1. * Patient's blood pressure is being monitored closely. Agree with cardiology consultation. Consider arterial Doppler of lower extremities. May need EMG of lower extremities as outpatient. * Neurologically clear.
[2020-02-29 21:30] LABS: Glucose,Whole Blood 163 mg/dL (75-99)
[2020-02-29] MEDS: MELATONIN 5 MG TABLET PO SCH (21:31)
[2020-02-29] MEDS: ATORVASTATIN 20 MG TAB PO SCH (21:31)
[2020-02-29] MEDS: ISOSORBIDE MONONITRATE ER 30 MG TAB.ER.24H PO SCH (21:31)
[2020-03-01] MEDS: INSULIN ASPART (NovoLOG) 100 UNIT/ML VIAL SQ SCH ×2 (05:56→11:57)
[2020-03-01 06:04] LABS: Glucose,Whole Blood 139 mg/dL (75-99)
[2020-03-01] MEDS: hydrALAZINE HCL 50 MG TAB PO SCH ×2 (06:09→13:17)
[2020-03-01] MEDS: LEVOTHYROXINE 75 MCG TAB PO SCH (06:10)
[2020-03-01 08:46] VITALS: TEMP 97.5
[2020-03-01] MEDS: CHOLECALCIFEROL 1,000 UNIT TAB PO SCH (08:49)
[2020-03-01] MEDS: ISOSORBIDE MONONITRATE ER 60 MG TAB.ER.24H PO SCH (08:49)
[2020-03-01] MEDS: ASPIRIN 81 MG PO SCH (08:49)
[2020-03-01] MEDS: METOPROLOL TARTRATE 50 MG TAB PO SCH (08:49)
[2020-03-01] MEDS: APIXABAN 5 MG TAB PO SCH (08:49)
[2020-03-01] MEDS ORDERED: cloNIDine HCL 0.1 MG TAB PO SCH (09:00)
--- NOTE | 2020-03-01 11:11 | P.CRDCN ---
History of Present Illness History of present illness: HISTORY OF PRESENTING ILLNESS This is a pleasant 89-year-old female past medical history significant for coronary artery disease, paroxysmal atrial fibrillation, permanent pacemaker implantation, hypertension, dyslipidemia and hypothyroidism. She follows in the office with Dr. Glaser out of [facility]. We have been asked to see in consultation for chest pain. She states she struggles frequently with controlling her blood pressure. Over the weekend she was having intermittent episodes of chest discomfort associated with elevated blood pressures. On Friday she had an episode of chest discomfort and states her blood pressure was elevated over 200 systolic. Her chest felt tight across the anterior portion. She was also having associated lower extremity numbness and tingling. She spoke with her engineering inspector who advised she come to the hospital for evaluation of possible stroke. CT of her brain was negative for an acute intracranial hemorrhage or midline shift diffuse cerebral atrophy redemonstrated. On arrival her blood pressure was 118/74. She states she does take clonidine twice daily with instructions to take an additional dose as needed for elevated blood pressure over 160 systolic. Since arrival to clonidine has been ordered as needed. Yesterday afternoon she developed tightness in her chest similar to how she felt on Friday. In fact she has symptoms like this quite frequently when her blood pressure is elevated according to the patient. Her blood pressure at that time was 178/89. She was given sublingual nitroglycerin 3 which did bring her blood pressure down and relieve her chest discomfort. She has had no further symptoms since yesterday. In September 2019 she suffered a non-ST elevated myocardial infarction. She was transferred to her primary engineering inspector where she underwent cardiac catheterization. The exact report is not available to me at this time however the patient states she had no stenting done and was told everything looked "fine". Recent echocardiogram obtained in May 2019 revealed preserved LV systolic function with ejection fraction 50-55%, mild mitral regurgitation and mild tricuspid regurgitation. DIAGNOSTICS EKG reveals paced rhythm. Chest xray negative for acute cardiopulmonary process. Laboratory reviewed, CBC unremarkable, sodium 134, potassium 4.4, creatinine 0.71, cardiac enzymes negative 3, LDL 62. Current cardiac medications include hydralazine 100 mg 3 times a day, clonidine 0.1 mg twice a day, aspirin 81 mg daily, Eliquis 5 mg twice a day, atorvastatin 20 mg daily, Lopressor 100 mg 3 times a day, Imdur 60 mg in the morning and 90 mg at bedtime and Aldactone 25 mg daily as needed for lower extremity swelling. REVIEW OF SYSTEMS At the time of my exam: CONSTITUTIONAL: Denies fever or chills. CARDIOVASCULAR: Denies chest pain, shortness of breath, orthopnea, PND or palp itations. RESPIRATORY: Denies cough. GASTROINTESTINAL: Denies abdominal pain, diarrhea, constipation, nausea or vomiting. MUSCULOSKELETAL: Denies myalgias. NEUROLOGIC: Denies numbness, tingling or weakness. ENDOCRINE: Denies fatigue, weight change, polydipsia or polyurina. GENITOURINARY: Denies burning, hematuria or urgency with micturation. HEMATOLOGIC: Denies history of anemia or bleeding. PHYSICAL EXAMINATION Blood pressure 125/69 heart rate 95 afebrile and maintaining oxygen saturation o n room air. CONSTITUTIONAL: No apparent distress. HEENT: Head is normocephalic. Pupils are equal, round. Sclerae anicteric. Mucous membranes of the mouth are moist. No JVD. No carotid bruit. CHEST EXAMINATION: Lungs are clear to auscultation. No chest wall tenderness is noted on palpation or with deep breathing. HEART EXAMINATION: Regular rate and rhythm. S1, S2 heard. Systolic ejection murmur at the left sternal border, no gallops or rub. ABDOMEN: Soft, nontender. Positive bowel sounds. EXTREMITIES: 2+ peripheral pulses, no lower extremity edema and no calf tenderness. NEUROLOGIC EXAMINATION: Patient is awake, alert and oriented x3. ASSESSMENT Chest pain, an acute coronary event has been ruled out. Hypertension, uncontrolled Paroxysmal atrial fibrillation on long-term anticoagulation Permanent pacemaker implantation Dyslipidemia PLAN An acute coronary event has been ruled out. Change clonidine to 0.1 mg twice a day. No further symptoms of chest discomfort. Follow-up with her engineering inspector upon discharge. Thank you kindly for this consultation. Nurse Practitioner note has been reviewed, I agree with a documented findings and plan of care. Patient was seen and examined. Past Medical History Past Medical History: Atrial Fibrillation, Coronary Artery Disease (CAD), Cancer, Chest Pain / Angina, Diabetes Mellitus, GERD/Reflux, Hyperlipidemia, Hypertension, Osteoarthritis (OA), Sleep Apnea/CPAP/BIPAP, Thyroid Disorder Additional Past Medical History / Comment(s): skin cancer, restless leg syndrome, varicose veins, IBS, History of Any Multi-Drug Resistant Organisms: None Reported Past Surgical History: Adenoidectomy, Appendectomy, Breast Surgery, Elizabeth cystectomy, Heart Catheterization With Stent, Hysterectomy, Orthopedic Surgery, Pacemaker, Tonsillectomy Additional Past Surgical History / Comment(s): walt cataract, 2 stents, partial thyroidectomy, rt shoulder rotator cuff, walt breast biopsy, metal clip in rt breast Past Anesthesia/Blood Transfusion Reactions: No Reported Reaction Date of Last Stent Placement:: 1998 Type of Cardiac Device: Permanent Pacemaker, Unknown Device Placement Date:: 2014 Past Psychological History: Anxiety Smoking Status: Former smoker Past Alcohol Use History: Occasional Additional Past Alcohol Use History / Comment(s): The patient was a smoker briefly as a kid. She drinks alcohol occasionally. Past Drug Use History: None Reported - Past Family History Mother Additional Family Medical History / Comment(s): Mother at age 76 from massive stroke. Brother(s) Additional Family Medical History / Comment(s): The patient had a total of 3 brothers. One brother from melanoma. One brother is with history of coronary artery disease status post CABG. One brother has from colon cancer with history of coronary artery disease. Patient does not have any si sters. Daughter(s) Family Medical History: No Reported History (Healthy 1 daughter) Son(s) History Unknown: Yes (Healthy 3 sons) Additional Family Medical History / Comment(s): Patient has 3 sons and 1 daughter. One son has history of coronary artery disease, second son has history of AICD. Patient has 1 son and 1 daughter with no major medical problems. Father Additional Family Medical History / Comment(s): Father at age 59 from a myocardial infarction. Medications and Allergies Home Medications Medication Instructions Recorded Confirmed Type Apixaban [Eliquis] 5 mg PO BID 04/19/17 02/27/20 History Ascorbic Acid [Vitamin C] 500 mg PO DAILY PRN 04/19/17 02/27/20 History Cholecalciferol [Vitamin D3 (25 3,000 unit PO DAILY 04/19/17 02/27/20 History Mcg = 1000 Iu)] glipiZIDE XL [Glucotrol XL] 2.5 mg PO DAILY 04/19/17 02/27/20 History Levothyroxine Sodium [Synthroid] 75 mcg PO DAILY 05/26/17 02/27/20 History Estradiol 0.05MG/24Hr Biwkptch 1 patch TRANSDERM SUWE 01/13/19 02/27/20 History [Vivelle-Dot 0.05 MG] Isosorbide Mononitrate ER [Imdur] 60 mg PO DAILY tab.er.24h 01/13/19 02/27/20 Rx traMADol HCL [Ultram] 50 mg PO BID PRN 01/13/19 02/27/20 History Nitroglycerin Sl Tabs [Nitrostat] 0.4 mg PO Q5M PRN #25 tab 01/18/19 02/27/20 Rx Atorvastatin [Lipitor] 20 mg PO HS 05/09/19 02/27/20 History Isosorbide Mononitrate ER [Imdur] 90 mg PO HS 05/09/19 02/27/20 History Melatonin 10 mg PO HS 05/09/19 02/27/20 History Spironolactone [Aldactone] 25 mg PO DAILY PRN 05/09/19 02/27/20 History ALPRAZolam [Xanax] 0.25 mg PO BID PRN 09/17/19 02/27/20 History cloNIDine HCL [Catapres] 0.1 mg PO TID PRN 09/17/19 02/27/20 History hydrALAZINE HCL [Apresoline] 100 mg PO Q8H 09/17/19 02/27/20 History Aspirin 81 mg PO DAILY chew 02/07/20 02/27/20 Rx Aspirin EC [Ecotrin] 650 mg PO ONCE PRN 02/27/20 02/27/20 History Metoprolol Tartrate [Lopressor] 100 mg PO TID 02/27/20 02/27/20 History cloNIDine HCL [Catapres] 0.1 mg PO BID tab 03/01/20 Rx Allergies Allergy/AdvReac Type Severity Reaction Status Date / Time JORGITO Inhibitors Allergy Severe Swelling Verified 02/27/20 13:39 cortisone Allergy Severe Rash/Hives, Verified 02/27/20 13:39 high BP hydralazine Allergy Swelling Verified 02/27/20 13:39 Calcium Channel Blocking AdvReac SORES IN Verified 02/27/20 13:39 Agent Dilt MOUTH dust,trees Allergy Itching Uncoded 02/27/20 13:39 Physical Exam Vitals: Vital Signs Temp Pulse Pulse Resp BP BP BP 03/01/20 09:00 60 16 03/01/20 08:44 97.5 F L 60 16 159/87 03/01/20 08:00 97.5 F L 66 16 159/87 03/01/20 04:00 03/01/20 03:00 97.9 F 62 18 02/29/20 21:00 97.7 F 63 16 179/96 02/29/20 20:00 97.7 F 63 16 179/96 02/29/20 16:00 97.5 F L 63 59 L 18 169/73 165/78 02/29/20 14:42 97.5 F L 59 L 20 165/78 02/29/20 11:50 98.1 F 59 L 20 177/78 02/29/20 11:49 98.1 F 59 L 20 177/78 BP Pulse Ox 03/01/20 09:00 03/01/20 08:44 94 L 03/01/20 08:00 94 L 03/01/20 04:00 131/75 03/01/20 03:00 131/75 93 L 02/29/20 21:00 96 02/29/20 20:00 02/29/20 16:00 94 L 02/29/20 14:42 95 02/29/20 11:50 95 02/29/20 11:49 95 Intake and Output 02/29/20 03/01/20 03/01/20 22:59 06:59 14:59 Intake Total 450 0 Balance 450 0 Intake: Oral 450 0 Other: Voiding Method Toilet Toilet Toilet # Voids 1 1 Results 02/27/20 10:39 02/27/20 10:39 Current Medications Generic Name Dose Route Start Last Admin Trade Name Freq PRN Reason Stop Dose Admin Alprazolam 0.25 mg 02/27/20 13:50 02/29/20 22:54 Xanax PO 0.25 mg BID PRN Administration Anxiety Apixaban 5 mg 02/27/20 21:00 03/01/20 08:49 Eliquis PO 5 mg BID DULCE Administration Ascorbic Acid 500 mg 02/27/20 13:50 Vitamin C PO DAILY PRN Cold Symptoms Aspirin 81 mg 02/28/20 09:00 03/01/20 08:49 Aspirin PO 81 mg DAILY DULCE Administration Atorvastatin Calcium 20 mg 02/27/20 21:00 02/29/20 21:31 Lipitor PO 20 mg HS DULCE Administration Cholecalciferol 3,000 unit 02/28/20 09:00 03/01/20 08:49 Vitamin D3 (25 Mcg = 1000 Iu) PO 3,000 unit DAILY DULCE Administration Clonidine 0.1 mg 02/27/20 13:50 02/29/20 21:30 Catapres PO 0.1 mg TID PRN Administration high blood pressure Clonidine 0.1 mg 03/01/20 09:00 03/01/20 10:11 Catapres PO 0.1 mg BID DULCE Administration Glipizide 2.5 mg 02/28/20 07:30 03/01/20 05:56 Glucotrol PO Not Given [id number]-[id number] [facility] Hydralazine HCl 100 mg 02/27/20 14:00 03/01/20 06:09 Apresoline PO 100 mg Q8H DULCE Administration Insulin Aspart 0 unit 02/28/20 07:30 03/01/20 05:56 Novolog SQ Not Given ACHS [facility] Protocol Isosorbide Mononitrate 90 mg 02/27/20 21:00 02/29/20 21:31 Imdur PO 90 mg HS [facility] Administration Isosorbide Mononitrate 60 mg 02/28/20 09:00 03/01/20 08:49 Imdur PO 60 mg DAILY DULCE Administration Levothyroxine Sodium 75 mcg 02/28/20 06:30 03/01/20 06:10 Synthroid PO 75 mcg 0630 DULCE Administration Melatonin 10 mg 02/27/20 21:00 02/29/20 21:31 Melatonin PO 10 mg HS [facility] Administration Metoprolol Tartrate 100 mg 02/27/20 16:00 03/01/20 08:49 Lopressor PO 100 mg TID DULCE Administration Nitroglycerin 0.4 mg 02/27/20 13:50 02/29/20 10:02 Nitrostat SUBLINGUAL 0.4 mg Q5M PRN Administration Chest Pain Patient's Home Med ( 1 patch 02/27/20 14:00 02/27/20 16:19 Estradiol 0.05mg/ TOPICAL Not Given 24hr Biwkptch 1 SUWE DULCE Patch) Spironolactone 25 mg 02/27/20 13:50 Aldactone PO DAILY PRN Edema Tramadol HCl 50 mg 02/27/20 13:50 03/01/20 03:25 Ultram PO 50 mg BID PRN Administration Pain Intake and Output 02/29/20 03/01/20 03/01/20 22:59 06:59 14:59 Intake Total 450 0 Balance 450 0 Intake: Oral 450 0 Other: Voiding Method Toilet Toilet Toilet # Voids 1 1 02/27/20 10:39 02/27/20 10:39
[2020-03-01 11:27] LABS: Glucose,Whole Blood 241 mg/dL (75-99)
[2020-03-01 13:19] VITALS: BP 139/71; PULSE 64; RESP 18
--- NOTE | 2020-03-01 13:46 | P.PN ---
Subjective Progress Note Date: 02/29/20 This is ant 89-year-old female patient of Dr. Locke and who follows with a cluster bore operator at [facility], Malou Bert. She has a past medical history of paroxysmal atrial fibrillation on eliquis, coronary artery disease with prior stent placements, hypertension, hyperlipidemia, diabetes mellitus type II, GERD, obstructive sleep apnea, history of permanent pacemaker, hypothyroidism. Patient states that she was at her cluster bore operator's office on Friday and medication changes were made to Lopressor increasing dose to 100 mg 3 times daily and Catapres was changed to 0.1 mg twice daily and to continue as needed as well. Dyazide was discontinued. She was to return in one month for recheck. She states that yesterday her blood pressure went crazy and she was 200/100+ during the night. She states she also had some numbness of developed in both legs initially in the left leg and then went to the right leg gradually going up. She denies any visual changes, no slurred speech, no upper extremity weakness. Patient came into [facility] emergency center for evaluation. CBC was unremarkable. INR 1. Sodium 134, potassium 4.4, chloride 103, CO2 26, BUN 28 creatinine 0.71. Blood sugar 137. EKG was a paced rhythm. Initial blood pressure 118/74, heart rate 72, pulse ox 95% on room air, afebrile. Patient was given 1 L of IV fluids. Patient was placed on the cardiac observation unit. At the time of our evaluation, recheck of her blood pressure was 189/96. Patient has been resumed on her home medications. 02/28: Patient has been seen by neurology and recommended checking carotid duplex for carotid stenosis. Recommend continuing eliquis, aspirin and statin. Vitamin B12, folate, TSH and hemoglobin A1c were ordered. Carotid ultrasound revealed 50% stenosis in both internal carotid arteries, 70% stenosis in the left external carotid artery. Consult with vascular surgery added to evaluate. Patient has been afebrile, heart rate in the 60s, blood pr essure this morning 167/83. Pulse ox 97% on room air. Once patient has been seen by vascular surgeon, patient will be discharged home today in stable condition. Patient was prepared for discharge home and subsequently developed chest pain for which her nurse gave her nitroglycerin with improvement of her pain. She also developed numbness to her feet. Cardiology consult requested. Review of Systems Constitutional: No fever, no chills, no night sweats. No weight change. No weakness, fatigue or lethargy. No daytime sleepiness. EENT: No headache. No blurred vision or double vision, no loss of vision. No loss of Hearing, no ringing in the ears, reports dizziness. No nasal drainage or congestion. No epistaxis. No sore throat. Lungs: Reports shortness of breath, cough, no sputum production. No wheezing. Cardiovascular: Reports chest pain, no lower extremity edema. No palpitations. No paroxysmal nocturnal dyspnea. No orthopnea. No lightheadedness or dizziness. No syncopal episodes. Reports abnormal blood pressure readings. Abdominal: No abdominal pain. No nausea, vomiting. No diarrhea. No constipation. No bloody or tarry stools.. No loss of appetite. Genitourinary: No dysuria, increased frequency, urgency. No urinary retention. Musculoskeletal: No myalgias. No muscle weakness, no gait dysfunction, no frequent falls. No back pain. No neck pain. Integumentary: No wounds, no lesions. No rash or pruritus. No unusual bruising. No change in hair or nails. Neurologic: No aphasia. No facial droop. No change in mentation. No head injury. No headache. No paralysis. Numbness to the bilateral lower legs, resolved.. Psychiatric: No depression. No anxiety. No mood swings. Endocrine: No abnormal blood sugars. No weight change. No excessive sweating or thirst. No cold intolerance. Physical Examination Gen: This is an 89-year-old female. Patient is sitting in bed and appears to be in no acute distress. HEENT: Head is atraumatic, normocephalic. Pupils equal, round. Sclerae is anicteric. NECK: Supple. No JVD. No lymphadenopathy. No thyromegaly. LUNGS: Clear to auscultation. No wheezes or rhonchi. No intercostal retractions. HEART: Regular rate and rhythm. Systolic murmur. ABDOMEN: Soft. Bowel sounds are present. No masses. No tenderness. EXTREMITIES: No pedal edema. No calf tenderness. Dorsalis pedis +2 bilaterally. NEUROLOGICAL: Patient is awake, alert and oriented x3. Cranial nerves 2 through 12 are grossly intact. Assessment and Plan 1. Uncontrolled hypertension. Continue Catapres 0.1 mg 3 times daily as needed, hydralazine 100 mg every 8 hours, Lopressor 100 mg 3 times daily, Aldactone 25 mg daily as needed. 2. History of non-ST elevated myocardial infarction, September 2019. No complaints of chest pain. 3. History of coronary artery disease with prior stent placements, [facility]. 4. Paroxysmal atrial fibrillation on eliquis. Continue Lopressor and eliquis. 5. Hypertension. Continue Catapres, hydralazine 100 mg 3 times daily, Imdur, Aldactone. 6. Hyperlipidemia. Continue Lipitor. 7. Diabetes mellitus type 2. Continue glipizide 2.5 mg daily, NovoLog scale. 8. Obstructive sleep apnea. 9. Hypothyroidism. Continue levothyroxine 75 g daily. 10. COVID-19 infection not present. 11. Chest pain. Cardiology consult. Discharge plan: Monitor overnight and discharged home tomorrow Impression and plan of care have been directed as dictated by the signing physician. Tereza Arnett nurse practitioner acting as scribe for signing physician. Objective - Vital Signs Vital signs: Vital Signs Temp 97.5 F L 03/01/20 08:44 Pulse 64 03/01/20 12:00 Resp 18 03/01/20 12:00 BP 139/71 03/01/20 12:00 Pulse Ox 95 03/01/20 12:00 Intake & Output 02/29/20 03/01/20 03/01/20 18:59 06:59 18:59 Intake Total 970 450 720 Output Total 400 625 Balance 570 450 95 Intake: Oral 970 450 720 Output: Urine 400 625 Other: Voiding Method Toilet Toilet Toilet # Voids 1 - Labs CBC & Chem 7: 02/27/20 10:39 02/27/20 10:39 Labs: Abnormal Lab Results - Last 24 Hours (Table) 02/27/20 02/29/20 02/29/20 Range/Units 10:39 16:40 21:28 POC Glucose (mg/dL) 118 H 163 H (75-99) mg/dL Hemoglobin A1c 7.1 H (4.0-6.0) % 03/01/20 03/01/20 Range/Units 06:03 11:25 POC Glucose (mg/dL) 139 H 241 H (75-99) mg/dL Hemoglobin A1c (4.0-6.0) %
== END 2020-03-01 13:38 | disposition home or self-care (01) ==
LOC: EC 09:33 → 3NCARDOBS 13:52
PROVIDERS: ADMIT Internal Medicine; ATTEND Internal Medicine
DX: I10 Essential (primary) hypertension (principal); R20.0 Anesthesia of skin; R20.2 Paresthesia of skin; R07.89 Other chest pain; I65.23 Occlusion and stenosis of bilateral carotid arteries; I25.2 Old myocardial infarction; I25.10 Atherosclerotic heart disease of native coronary artery without angina pectoris; I48.0 Paroxysmal atrial fibrillation; E78.5 Hyperlipidemia, unspecified; E11.9 Type 2 diabetes mellitus without complications; G47.33 Obstructive sleep apnea (adult) (pediatric); E89.0 Postprocedural hypothyroidism; M51.9 Unspecified thoracic, thoracolumbar and lumbosacral intervertebral disc disorder; K21.9 Gastro-esophageal reflux disease without esophagitis; M19.90 Unspecified osteoarthritis, unspecified site; G25.81 Restless legs syndrome; I83.90 Asymptomatic varicose veins of unspecified lower extremity; K58.9 Irritable bowel syndrome, unspecified; F41.9 Anxiety disorder, unspecified; I51.7 Cardiomegaly; G31.9 Degenerative disease of nervous system, unspecified; M48.061 Spinal stenosis, lumbar region without neurogenic claudication; Z95.5 Presence of coronary angioplasty implant and graft; Z03.818 Encounter for observation for suspected exposure to other biological agents ruled out; Z79.01 Long term (current) use of anticoagulants; Z79.84 Long term (current) use of oral hypoglycemic drugs; Z79.890 Hormone replacement therapy; Z79.82 Long term (current) use of aspirin; Z79.899 Other long term (current) drug therapy; Z88.8 Allergy status to other drugs, medicaments and biological substances; Z91.09 Other allergy status, other than to drugs and biological substances; Z85.828 Personal history of other malignant neoplasm of skin; Z99.89 Dependence on other enabling machines and devices; Z90.89 Acquired absence of other organs; Z90.49 Acquired absence of other specified parts of digestive tract; Z98.890 Other specified postprocedural states; Z90.710 Acquired absence of both cervix and uterus; Z95.0 Presence of cardiac pacemaker; Z98.41 Cataract extraction status, right eye; Z98.42 Cataract extraction status, left eye; Z87.39 Personal history of other diseases of the musculoskeletal system and connective tissue; Z91.81 History of falling; Z82.3 Family history of stroke; Z80.8 Family history of malignant neoplasm of other organs or systems; Z82.49 Family history of ischemic heart disease and other diseases of the circulatory system; Z80.0 Family history of malignant neoplasm of digestive organs
CPT/HCPCS: 93005 ×2; 96361 ×2; 96360; 99285; 36415; 97161; 97165; 80061; 80053; 84443; 82607; 82550; 82746; 84484; 85025; 85610; 85730; 83036; 71046; 93880; 70450; G0378 ×4; U0003

== ENCOUNTER → 2020-03-20 | Outpatient (CLI) | payer MEDICARE | END | disposition home or self-care (01) | LOC: LABWHC1 13:29 | PROVIDERS: ATTEND Internal Medicine Endocrinology, Diabetes & Metabolism | DX: M89.9 Disorder of bone, unspecified (principal); M48.00 Spinal stenosis, site unspecified; E55.9 Vitamin D deficiency, unspecified; Z87.310 Personal history of (healed) osteoporosis fracture | CPT/HCPCS: 36415; 82670 ==

== ENCOUNTER 2020-05-18 20:42 | Emergency (ER) | payer MEDICARE ==
[2020-05-18 20:54] VITALS: TEMP 97.7
[2020-05-18] MEDS ORDERED: diphenhydrAMINE 50 MG/ML 1 ML VIAL IM STA (21:14)
--- NOTE | 2020-05-18 21:27 | ED ---
Allergic Reaction HPI - General Chief complaint: Allergic Reaction Stated complaint: Mouth Swelling Time Seen by Provider: 05/18/20 20:59 Source: patient Mode of arrival: wheelchair Limitations: no limitations - History of Present Illness Initial Comments: Patient is an 89-year-old female presenting to the emergency Department with complaints of a possible ALLERGIC reaction. Patient states she has had this issue in the past with some of her medications, one was an JORGITO inhibitor. Patient states she noticed her bottom lip started to swell very slightly this evening. Patient is coming into the ER requesting a shot of Benadryl to help with her symptoms. She states she's had this in the past and works great. Patient denies any trouble breathing,throat swelling, she is able to eat and drink without difficulty. Patient states only new medication she is taking is Ultram for a pulled muscle injury. She denies any recent fever, chest pain, cough. She has no further complaints at this time. Upon arrival to the ER her vital signs are stable. - Related Data Home Medications Medication Instructions Recorded Confirmed Apixaban [Eliquis] 5 mg PO BID 04/19/17 02/27/20 Ascorbic Acid [Vitamin C] 500 mg PO DAILY PRN 04/19/17 02/27/20 Cholecalciferol [Vitamin D3 (25 3,000 unit PO DAILY 04/19/17 02/27/20 Mcg = 1000 Iu)] glipiZIDE XL [Glucotrol XL] 2.5 mg PO DAILY 04/19/17 02/27/20 Levothyroxine Sodium [Synthroid] 75 mcg PO DAILY 05/26/17 02/27/20 Estradiol 0.05MG/24Hr Biwkptch 1 patch TRANSDERM SUWE 01/13/19 02/27/20 [Vivelle-Dot 0.05 MG] traMADol HCL [Ultram] 50 mg PO BID PRN 01/13/19 02/27/20 Atorvastatin [Lipitor] 20 mg PO HS 05/09/19 02/27/20 Isosorbide Mononitrate ER [Imdur] 90 mg PO HS 05/09/19 02/27/20 Melatonin 10 mg PO HS 05/09/19 02/27/20 Spironolactone [Aldactone] 25 mg PO DAILY PRN 05/09/19 02/27/20 ALPRAZolam [Xanax] 0.25 mg PO BID PRN 09/17/19 02/27/20 cloNIDine HCL [Catapres] 0.1 mg PO TID PRN 09/17/19 02/27/20 hydrALAZINE HCL [Apresoline] 100 mg PO Q8H 09/17/19 02/27/20 Aspirin EC [Ecotrin] 650 mg PO ONCE PRN 02/27/20 02/27/20 Metoprolol Tartrate [Lopressor] 100 mg PO TID 02/27/20 02/27/20 Previous Rx's Medication Instructions Recorded Isosorbide Mononitrate ER [Imdur] 60 mg PO DAILY tab.er.24h 01/13/19 Nitroglycerin Sl Tabs [Nitrostat] 0.4 mg PO Q5M PRN #25 tab 01/18/19 Aspirin 81 mg PO DAILY chew 02/07/20 cloNIDine HCL [Catapres] 0.1 mg PO BID tab 03/01/20 Allergies Allergy/AdvReac Type Severity Reaction Status Date / Time JORGITO Inhibitors Allergy Severe Swelling Verified 05/18/20 20:55 cortisone Allergy Severe Rash/Hives, Verified 05/18/20 20:55 high BP hydralazine Allergy Swelling Verified 05/18/20 20:55 Calcium Channel Blocking AdvReac SORES IN Verified 05/18/20 20:55 Agent Dilt MOUTH dust,trees Allergy Itching Uncoded 05/18/20 20:55 Review of Systems ROS Statement: Those systems with pertinent positive or pertinent negative responses have been documented in the HPI. ROS Other: All systems not noted in ROS Statement are negative. Past Medical History Past Medical History: Atrial Fibrillation, Coronary Artery Disease (CAD), Cancer, Chest Pain / Angina, Diabetes Mellitus, GERD/Reflux, Hyperlipidemia, Hypertension, Osteoarthritis (OA), Sleep Apnea/CPAP/BIPAP, Thyroid Disorder Additional Past Medical History / Comment(s): skin cancer, restless leg syndrome, varicose veins, IBS, History of Any Multi-Drug Resistant Organisms: None Reported Past Surgical History: Adenoidectomy, Appendectomy, Breast Surgery, Cholecystectomy, Heart Catheterization With Stent, Hysterectomy, Orthopedic Surgery, Pacemaker, Tonsillectomy Additional Past Surgical History / Comment(s): walt cataract, 2 stents, partial thyroidectomy, rt shoulder rotator cuff, walt breast biopsy, metal clip in rt breast Past Anesthesia/Blood Transfusion Reactions: No Reported Reaction Date of Last Stent Placement:: 1998 Type of Cardiac Device: Permanent Pacemaker, Unknown Device Placement Date:: 2014 Past Psychological History: Anxiety Smoking Status: Former smoker Past Alcohol Use History: None Reported, Occasional Past Drug Use History: None Reported - Past Family History Mother Additional Family Medical History / Comment(s): Mother at age 76 from massive stroke. Brother(s) Additional Family Medical History / Comment(s): The patient had a total of 3 brothers. One brother from melanoma. One brother is with history of coronary artery disease status post CABG. One brother has from colon cancer with history of coronary artery disease. Patient does not have any sisters. Daughter(s) Family Medical History: No Reported History (Healthy 1 daughter) Son(s) History Unknown: Yes (Healthy 3 sons) Additional Family Medical History / Comment(s): Patient has 3 sons and 1 daughter. One son has history of coronary artery disease, second son has history of AICD. Patient has 1 son and 1 daughter with no major medical problems. Father Additional Family Medical History / Comment(s): Father at age 59 from a myocardial infarction. General Exam - General Exam Comments Initial Comments: GENERAL: Patient is well-developed and well-nourished. Patient is nontoxic and in no acute distress. HEAD: Atraumatic, normocephalic. EYES: Pupils equal round and reactive to light, extraocular movements intact, sclera anicteric, conjunctiva are normal. Eyelids were unremarkable. ENT: TMs normal, nares patent, oropharynx clear without exudates. Moist mucous membranes. Patient has some very mild lower right sided swelling of the lip, no erythema or signs of infection. NECK: Normal range of motion, supple without lymphadenopathy or JVD. LUNGS: Unlabored respirations. Breath sounds clear to auscultation bilaterally and equal. No wheezes rales or rhonchi. HEART: Regular rate and rhythm without murmurs, rubs or gallops. ABDOMEN: Soft, nontender, normoactive bowel sounds. No guarding, no rebound. No masses appreciated. : Deferred MUSCULOSKELETAL: Normal extremities with adequate strength and normal range of motion, no pitting or edema. No clubbing or cyanosis. NEUROLOGICAL: Patient is alert and oriented x 3. Motor and sensory are also intact. Cranial nerves II through XII grossly intact. Symmetrical smile. Normal speech, normal gait. PSYCH: Normal mood, normal affect. SKIN: Warm, Dry, normal turgor, no rashes or lesions noted. Limitations: no limitations Course Vital Signs 05/18/20 05/18/20 20:52 22:12 Temperature 97.7 F Pulse Rate 68 63 Respiratory 18 16 Rate Blood Pressure 160/84 184/96 O2 Sat by Pulse 95 95 Oximetry Medical Decision Making - Medical Decision Making Patient is an 89-year-old female here with concerns of a ALLERGIC reaction secondary to right-sided lower lip swelling since this evening. She's had this issue in the past. She is an absolute in no acute distress, no trouble breathing. Her vital signs are stable. Patient states her blood pressures increased secondary to not taking her blood pressure medication this evening yet. She was given 50 mg of Benadryl and dose of solu-medrol. She states her son will drive her home this evening. She is stable for discharge. Strict return parameters were discussed with the patient she verbalized understanding. Case discussed with Dr. Dobbs. Disposition Clinical Impression: Allergic reaction to drug, Swollen lip Disposition: HOME SELF-CARE Condition: Stable Instructions (If sedation given, give patient instructions): General Allergic Reaction (ED) Additional Instructions: Please return to the Emergency Department if symptoms worsen or any other concerns. May repeat Benadryl dose in 4-6 hours if symptoms persist. Follow-up with PCP. Is patient prescribed a controlled substance at d/c from ED?: No Referrals: Karlo Locke MD [Primary Care Provider] - 1-2 days
[2020-05-18] MEDS ORDERED: methylPREDNISolone SOD SUCCI 125 MG/2 ML VIAL IM ONE (21:38)
[2020-05-18 22:14] VITALS: BP 184/96; PULSE 63
[2020-05-18 22:29] VITALS: RESP 18
== END 2020-05-18 22:29 | disposition home or self-care (01) ==
LOC: EC 20:42
DX: T78.40XA Allergy, unspecified, initial encounter (principal); I48.91 Unspecified atrial fibrillation; I25.10 Atherosclerotic heart disease of native coronary artery without angina pectoris; I25.2 Old myocardial infarction; E11.9 Type 2 diabetes mellitus without complications; K21.9 Gastro-esophageal reflux disease without esophagitis; E78.5 Hyperlipidemia, unspecified; I10 Essential (primary) hypertension; M19.90 Unspecified osteoarthritis, unspecified site; G25.81 Restless legs syndrome; K58.9 Irritable bowel syndrome, unspecified; G47.30 Sleep apnea, unspecified; F41.9 Anxiety disorder, unspecified; Z79.01 Long term (current) use of anticoagulants; Z79.899 Other long term (current) drug therapy; Z79.84 Long term (current) use of oral hypoglycemic drugs; Z79.890 Hormone replacement therapy; Z79.82 Long term (current) use of aspirin; Z87.891 Personal history of nicotine dependence; Z88.8 Allergy status to other drugs, medicaments and biological substances; Z91.048 Other nonmedicinal substance allergy status; Z99.89 Dependence on other enabling machines and devices; Z85.828 Personal history of other malignant neoplasm of skin; Z95.5 Presence of coronary angioplasty implant and graft; Z90.49 Acquired absence of other specified parts of digestive tract; Z90.89 Acquired absence of other organs
CPT/HCPCS: 99283; J1200; J2930

== ENCOUNTER → 2020-05-25 | Outpatient (CLI) | payer MEDICARE | END | disposition home or self-care (01) | LOC: LABWHC1 13:33 | PROVIDERS: ATTEND Internal Medicine Geriatric Medicine | DX: R50.9 Fever, unspecified (principal); R05 Cough | CPT/HCPCS: U0003; C9803 ==

== ENCOUNTER 2020-06-01 10:37 | Observation (INO) | payer MEDICARE ==
[2020-06-01] MEDS ORDERED: ACETAMINOPHEN TAB 500 MG TAB PO STA (10:45)
[2020-06-01] MEDS ORDERED: NITROGLYCERIN OINT 1 INCH/GM PACKET TOPICAL STA (10:45)
--- NOTE | 2020-06-01 10:48 | ED ---
General Adult HPI - General Stated complaint: chest pain Time Seen by Provider: 06/01/20 10:40 Source: RN notes reviewed, old records reviewed - History of Present Illness Initial comments: This is an 89-year-old female who presents emergency Department complaining of waking up this morning and having a slight headache since she checked her blood pressure blood pressure was elevated so she took a Catapres. Patient states shortly thereafter about 8:30 she started having chest pain. Patient eventually took nitroglycerin and it did not seem to have any effect. She called the ambulance when EMS arrived they gave her a second nitroglycerin and she states it took the pain away completely. Patient states she's had 3 stents placed and has had 2 heart attacks. Patient states she has diabetes high blood pressure high cholesterol. Patient states the pain in the chest did not radiate anywhere and she was not short of breath and she was not nauseated. Patient denies any lightheadedness or dizziness. Patient denies any recent fever chills or cough per patient denies any leg swelling or calf tenderness. - Related Data Home Medications Medication Instructions Recorded Confirmed Apixaban [Eliquis] 5 mg PO BID 04/19/17 02/27/20 Ascorbic Acid [Vitamin C] 500 mg PO DAILY PRN 04/19/17 02/27/20 Cholecalciferol [Vitamin D3 (25 3,000 unit PO DAILY 04/19/17 02/27/20 Mcg = 1000 Iu)] glipiZIDE XL [Glucotrol XL] 2.5 mg PO DAILY 04/19/17 02/27/20 Levothyroxine Sodium [Synthroid] 75 mcg PO DAILY 05/26/17 02/27/20 Estradiol 0.05MG/24Hr Biwkptch 1 patch TRANSDERM SUWE 01/13/19 02/27/20 [Vivelle-Dot 0.05 MG] traMADol HCL [Ultram] 50 mg PO BID PRN 01/13/19 02/27/20 Atorvastatin [Lipitor] 20 mg PO HS 05/09/19 02/27/20 Isosorbide Mononitrate ER [Imdur] 90 mg PO HS 05/09/19 02/27/20 Melatonin 10 mg PO HS 05/09/19 02/27/20 Spironolactone [Aldactone] 25 mg PO DAILY PRN 05/09/19 02/27/20 ALPRAZolam [Xanax] 0.25 mg PO BID PRN 09/17/19 02/27/20 cloNIDine HCL [Catapres] 0.1 mg PO TID PRN 09/17/19 02/27/20 hydrALAZINE HCL [Apresoline] 100 mg PO Q8H 09/17/19 02/27/20 Aspirin EC [Ecotrin] 650 mg PO ONCE PRN 02/27/20 02/27/20 Metoprolol Tartrate [Lopressor] 100 mg PO TID 02/27/20 02/27/20 Previous Rx's Medication Instructions Recorded Isosorbide Mononitrate ER [Imdur] 60 mg PO DAILY tab.er.24h 01/13/19 Nitroglycerin Sl Tabs [Nitrostat] 0.4 mg PO Q5M PRN #25 tab 01/18/19 Aspirin 81 mg PO DAILY chew 02/07/20 cloNIDine HCL [Catapres] 0.1 mg PO BID tab 03/01/20 Allergies Allergy/AdvReac Type Severity Reaction Status Date / Time JORGITO Inhibitors Allergy Severe Swelling Verified 06/01/20 10:45 cortisone Allergy Severe Rash/Hives, Verified 06/01/20 10:45 high BP hydralazine Allergy Swelling Verified 06/01/20 10:45 Calcium Channel Blocking AdvReac SORES IN Verified 06/01/20 10:45 Agent Dilt MOUTH dust,trees Allergy Itching Uncoded 05/18/20 20:55 Review of Systems ROS Statement: Those systems with pertinent positive or pertinent negative responses have been documented in the HPI. ROS Other: All systems not noted in ROS Statement are negative. Past Medical History Past Medical History: Atrial Fibrillation, Coronary Artery Disease (CAD), C ancer, Chest Pain / Angina, Diabetes Mellitus, GERD/Reflux, Hyperlipidemia, Hypertension, Osteoarthritis (OA), Sleep Apnea/CPAP/BIPAP, Thyroid Disorder Additional Past Medical History / Comment(s): skin cancer, restless leg syndrome, varicose veins, IBS, History of Any Multi-Drug Resistant Organisms: None Reported Past Surgical History: Adenoidectomy, Appendectomy, Breast Surgery, Cholecystectomy, Heart Catheterization With Stent, Hysterectomy, Orthopedic Surgery, Pacemaker, Tonsillectomy Additional Past Surgical History / Comment(s): walt cataract, 2 stents, partial thyroidectomy, rt shoulder rotator cuff, walt breast biopsy, metal clip in rt breast Past Anesthesia/Blood Transfusion Reactions: No Reported Reaction Date of Last Stent Placement:: 1998 Type of Cardiac Device: Permanent Pacemaker, Unknown Device Placement Date:: 2014 Past Psychological History: Anxiety Smoking Status: Former smoker Past Alcohol Use History: None Reported, Occasional Past Drug Use History: None Reported - Past Family History Mother Additional Family Medical History / Comment(s): Mother at age 76 from massive stroke. Brother(s) Additional Family Medical History / Comment(s): The patient had a total of 3 brothers. One brother from melanoma. One brother is with history of coronary artery disease status post CABG. One brother has from colon cancer with history of coronary artery disease. Patient does not have any sisters. Daughter(s) Family Medical History: No Reported History (Healthy 1 daughter) Son(s) History Unknown: Yes (Healthy 3 sons) Additional Family Medical History / Comment(s): Patient has 3 sons and 1 daughter. One son has history of coronary artery disease, second son has history of AICD. Patient has 1 son and 1 daughter with no major medical problems. Father Additional Family Medical History / Comment(s): Father at age 59 from a myocardial infarction. General Exam - General Exam Comments Initial Comments: GENERAL: Patient is well-developed and well-nourished. Patient is nontoxic and well- hydrated and is in mild distress. ENT: Neck is soft and supple. No significant lymphadenopathy is noted. Oropharynx is clear. Moist mucous membranes. Neck has full range of motion without eliciting any pain. EYES: The sclera were anicteric and conjunctiva were pink and moist. Extraocular movements were intact and pupils were equal round and reactive to light. Eyelids were unremarkable. PULMONARY: Unlabored respirations. Good breath sounds bilaterally. No audible rales rhonchi or wheezing was noted. CARDIOVASCULAR: There is a regular rate and rhythm without any murmurs gallops or rubs. ABDOMEN: Soft and nontender with normal bowel sounds. SKIN: Skin is clear with no lesions or rashes and otherwise unremarkable. NEUROLOGIC: Patient is alert and oriented x3. Cranial nerves II through XII are grossly intact. Motor and sensory are also intact. Normal speech, volume and content. Symmetrical smile. MUSCULOSKELETAL: Normal extremities with adequate strength and full range of motion. No lower extremity swelling or edema. No calf tenderness. LYMPHATICS: No significant lymphadenopathy is noted PSYCHIATRIC: Normal psychiatric evaluation. Course Vital Signs 06/01/20 06/01/20 06/01/20 10:45 11:38 12:29 Temperature 98.2 F 97.8 F Pulse Rate 64 61 62 Respiratory 18 18 14 Rate Blood Pressure 184/91 167/92 117/60 O2 Sat by Pulse 98 99 96 Oximetry Medical Decision Making - Medical Decision Making EKG shows a paced rhythm at a rate of 64 bpm FL interval is 192 QRS is 156 QT interval 474 QTC is 489 Chest x-ray shows no acute abnormality. I spoke with Dr. Mccord she agreed to admit the patient admitted the patient wrote admitting orders. I started the patient heparin I continued heparin and aspirin Nitropaste on the floor. - Lab Data Result diagrams: 06/01/20 10:49 06/01/20 10:49 Lab Results 06/01/20 06/01/20 06/01/20 Range/Units 10:49 10:49 10:49 WBC 9.6 (3.8-10.6) k/uL RBC 4.53 (3.80-5.40) m/uL Hgb 14.2 (11.4-16.0) gm/dL Hct 43.9 (34.0-46.0) % MCV 96.9 (80.0-100.0) fL MCH 31.3 (25.0-35.0) pg MCHC 32.3 (31.0-37.0) g/dL RDW 13.3 (11.5-15.5) % Plt Count 204 (150-450) k/uL Neutrophils % 76 % Lymphocytes % 13 % Monocytes % 8 % Eosinophils % 2 % Basophils % 1 % Neutrophils # 7.3 (1.3-7.7) k/uL Lymphocytes # 1.2 (1.0-4.8) k/uL Monocytes # 0.7 (0-1.0) k/uL Eosinophils # 0.2 (0-0.7) k/uL Basophils # 0.1 (0-0.2) k/uL PT 9.9 (9.0-12.0) sec INR 0.9 (<1.2) APTT 24.7 (22.0-30.0) sec Sodium 134 L (137-145) mmol/L Potassium 4.7 (3.5-5.1) mmol/L Chloride 104 (98-107) mmol/L Carbon Dioxide 26 (22-30) mmol/L Anion Gap 4 mmol/L BUN 31 H (7-17) mg/dL Creatinine 0.70 (0.52-1.04) mg/dL Est GFR (CKD-EPI)AfAm 89 (>60 ml/min/1.73 sqM) Est GFR (CKD-EPI)NonAf 78 (>60 ml/min/1.73 sqM) Glucose 146 H (74-99) mg/dL Calcium 9.4 (8.4-10.2) mg/dL Magnesium 2.0 (1.6-2.3) mg/dL Total Bilirubin 0.7 (0.2-1.3) mg/dL AST 28 (14-36) U/L ALT 20 (4-34) U/L Alkaline Phosphatase 64 (38-126) U/L Troponin I (0.000-0.034) ng/mL Total Protein 6.3 (6.3-8.2) g/dL Albumin 3.5 (3.5-5.0) g/dL 06/01/20 Range/Units 10:49 WBC (3.8-10.6) k/uL RBC (3.80-5.40) m/uL Hgb (11.4-16.0) gm/dL Hct (34.0-46.0) % MCV (80.0-100.0) fL MCH (25.0-35.0) pg MCHC (31.0-37.0) g/dL RDW (11.5-15.5) % Plt Count (150-450) k/uL Neutrophils % % Lymphocytes % % Monocytes % % Eosinophils % % Basophils % % Neutrophils # (1.3-7.7) k/uL Lymphocytes # (1.0-4.8) k/uL Monocytes # (0-1.0) k/uL Eosinophils # (0-0.7) k/uL Basophils # (0-0.2) k/uL PT (9.0-12.0) sec INR (<1.2) APTT (22.0-30.0) sec Sodium (137-145) mmol/L Potassium (3.5-5.1) mmol/L Chloride (98-107) mmol/L Carbon Dioxide (22-30) mmol/L Anion Gap mmol/L BUN (7-17) mg/dL Creatinine (0.52-1.04) mg/dL Est GFR (CKD-EPI)AfAm (>60 ml/min/1.73 sqM) Est GFR (CKD-EPI)NonAf (>60 ml/min/1.73 sqM) Glucose (74-99) mg/dL Calcium (8.4-10.2) mg/dL Magnesium (1.6-2.3) mg/dL Total Bilirubin (0.2-1.3) mg/dL AST (14-36) U/L ALT (4-34) U/L Alkaline Phosphatase (38-126) U/L Troponin I <0.012 (0.000-0.034) ng/mL Total Protein (6.3-8.2) g/dL Albumin (3.5-5.0) g/dL Critical Care Time Critical Care Time: Yes Total Critical Care Time: 35 Disposition Clinical Impression: Unstable angina Disposition: ADMITTED IP TO THIS HOSP Referrals: Karlo Locke MD [Primary Care Provider] - 1-2 days Time of Disposition: 13:11
[2020-06-01 11:38] LABS: Basophils # (A) 0.1 k/uL (0-0.2); Basophils % (A) 1 %; Eosinophils # (A) 0.2 k/uL (0-0.7); Eosinophils % (A) 2 %; HCT 43.9 % (34.0-46.0); HGB 14.2 gm/dL (11.4-16.0); INR 0.9 (<1.2); Lymphocytes # (A) 1.2 k/uL (1.0-4.8); Lymphocytes % (A) 13 %; MCH 31.3 pg (25.0-35.0); MCHC 32.3 g/dL (31.0-37.0); MCV 96.9 fL (80.0-100.0); Mean Platelet Volume 7.3; Monocytes # (A) 0.7 k/uL (0-1.0); Monocytes % (A) 8 %; Neutrophils # (A) 7.3 k/uL (1.3-7.7); Neutrophils % (A) 76 %; Partial Thromboplastin Time 24.7 sec (22.0-30.0); Platelet Count 204 k/uL (150-450); Prothrombin Time 9.9 sec (9.0-12.0); RBC 4.53 m/uL (3.80-5.40); RDW 13.3 % (11.5-15.5); WBC 9.6 k/uL (3.8-10.6)
[2020-06-01 11:39] LABS: Albumin 3.5 g/dL (3.5-5.0); Calcium 9.4 mg/dL (8.4-10.2); Potassium 4.7 mmol/L (3.5-5.1); Total Bilirubin 0.7 mg/dL (0.2-1.3); Total Protein 6.3 g/dL (6.3-8.2)
--- NOTE | 2020-06-01 12:35 | XR ---
EXAMINATION TYPE: XR chest 2V DATE OF EXAM: 06/01/2020 COMPARISON: Chest x-ray February 27, 2020. HISTORY: Chest pain. TECHNIQUE: Frontal and lateral views of the chest are obtained. FINDINGS: There is chronic parenchymal changes without suspicious focal air space opacity, pleural e ffusion, or pneumothorax seen. The cardiac silhouette size is mildly enlarged with dual pacemaker an d atherosclerotic aorta. Multilevel spurring in the thoracic spine. IMPRESSION: Chronic changes and cardiomegaly without acute pulmonary process.
[2020-06-01] MEDS ORDERED: NITROGLYCERIN SL TABS 0.4 MG TAB SUBLINGUAL PRN ×2 (13:13→15:12)
[2020-06-01] MEDS ORDERED: HEPARIN SODIUM,PORCINE 5,000 UNIT/ML 1 ML VIAL IV ONE (13:14)
[2020-06-01] MEDS: HEPARIN SOD,PORK IN 0.45% NACL 25,000 UNIT in 0.45% NACL 1 250ML.BAG IV SCH (13:27)
[2020-06-01] MEDS ORDERED: LOPERAMIDE 2 MG CAP PO PRN (15:12)
[2020-06-01] MEDS ORDERED: diphenhydrAMINE 25 MG CAP PO PRN (15:12)
[2020-06-01] MEDS ORDERED: SPIRONOLACTONE 25 MG TAB PO PRN (15:12)
[2020-06-01] MEDS ORDERED: ALPRAZolam 0.25 MG TAB PO PRN (15:12)
[2020-06-01] MEDS ORDERED: GABAPENTIN 100 MG CAP PO PRN (15:12)
[2020-06-01] MEDS: hydrALAZINE HCL 50 MG TAB PO SCH (16:17)
[2020-06-01] MEDS: METOPROLOL TARTRATE 50 MG TAB PO SCH ×2 (16:18→21:43)
[2020-06-01] MEDS: NITROGLYCERIN OINT 1 INCH/GM PACKET TOPICAL SCH (16:18)
[2020-06-01] MEDS: traMADol 50 MG TAB PO PRN (16:21)
--- NOTE | 2020-06-01 18:00 | ECHOF ---
Referral Reason:chest pain, LV function MEASUREMENTS -------- HEIGHT: 165.1 cm WEIGHT: 88.0 kg BP: 159/74 RVIDd: 4.2 cm (< 3.3) IVSd: 1.5 cm (0.6 - 1.1) LVIDd: 3.7 cm (3.9 - 5.3) LVPWd: 1.5 cm (0.6 - 1.1) IVSs: 2.0 cm LVIDs: 2.3 cm LVPWs: 1.7 cm LAESV Index (A-L): 35.66 ml/m Ao Diam: 2.9 cm (2.0 - 3.7) AV Cusp: 1.5 cm (1.5 - 2.6) MV E Gordo: 1.86 m/s MV DecT: 189 ms MV A Gordo: 0.88 m/s MV E/A Ratio: 2.11 RAP: 5.00 mmHg RVSP: 49.95 mmHg FINDINGS -------- This was a technically adequate study. The left ventricular size is normal. There is moderate concentric left ventricular hypertrophy. O verall left ventricular systolic function is low-normal with, an EF between 50 - 55 %. Septal wall motion is delayed, and consistent with ventricular pacing. The right ventricle is moderately enlarged. LA is moderately dilated 34-39 ml/m2 The right atrium is mildly enlarged. Electronic pacemaker lead seen in the right atrial cavity. Interatrial and interventricular septum intact. There is mild to moderate aortic valve sclerosis. There is no evidence of aortic regurgitation. T here is no evidence of aortic stenosis. Moderate mitral annular calcification present. Moderate mitral regurgitation is present. Moderate tricuspid regurgitation present. There is moderate pulmonary hypertension. The right brigette tricular systolic pressure, as measured by Doppler, is 49.95mmHg. There is no pulmonic regurgitation present. The aortic root size is normal. Normal inferior vena cava with normal inspiratory collapse consistent with estimated right atrial pre ssure of 5 mmHg. There is no pericardial effusion. CONCLUSIONS -------- 1. The left ventricular size is normal. 2. There is moderate concentric left ventricular hypertrophy. 3. Overall left ventricular systolic function is low-normal with, an EF between 50 - 55 %. 4. The right ventricle is moderately enlarged. 5. LA is moderately dilated 34-39 ml/m2 6. The right atrium is mildly enlarged. 7. There is mild to moderate aortic valve sclerosis. 8. Moderate mitral annular calcification present. 9. Moderate mitral regurgitation is present. 10. Moderate tricuspid regurgitation present. 11. There is moderate pulmonary hypertension. 12. The right ventricular systolic pressure, as measured by Doppler, is 49.95mmHg. 13. Normal inferior vena cava with normal inspiratory collapse consistent with estimated right atrial pressure of 5 mmHg. LOGGING SPECIALIST: Suha Dominique RDCS
--- NOTE | 2020-06-01 18:26 | P.HPIM ---
History of Present Illness H&P Date: 06/01/20 Chief Complaint: Chest pain, urgent hypertension, CAD, hyperlipidemia, severe GERD, 89-year-old female one of my office patient was seen senior cost analyst at [facility] Dr. Cornejo with known to have history of coronary disease chronic diastolic congestive heart failure, urgent hypertension on multiple medication, hyperlipidemia and hyperglycemia who apparently woke up this morning her blood pressure was elevated she is taking her medication blood pressure was very high patient then developed to have sternal chest pain around 8:30 her blood pressure was extremely high the time with the anginal chest pain decided to call 911 and ended up coming to the emergency department at [facility] were was seen and evaluated her EKG showed wide QRS as a left bundle-branch block not changed from before her CK with troponin was negative for blood pressure still elevated was giving hydralazine brought the blood pressure down patient was started on heparin drip and admitted to the hospital will be seen cardiology CK with troponin 3 will be done patient had recent testing with her senior cost analyst including echo and stress test if her enzymes are negative readjust her me dication and consider to adjust her long-acting nitro before sending her home in 24 hours. Review of Systems CONSTITUTIONAL: Well-developed no acute respiratory distress. EYES: No icterus sclerae, no conjunctivitis. EARS, NOSE, MOUTH, THROAT, and FACE: No sore throat, lymphadenopathy, carotid bruits or deformity. RESPIRATORY: No SOB cough or wheezes. CARDIOVASCULAR: Positive CP and Palpitation, positive PND, Orthopnea, and angina. GASTROINTESTINAL: No Abd pain, Nausea or vomiting, occasional Diarrhea no constipation, No GI Bleed, no distention or masses. GENITOURINARY: Negative for Hematuria or UTI, no kidney stones. INTEGUMENT/BREAST: Negative for any muscular injury with mild osteoarthritis.. HEMATOLOGIC/LYMPHATIC: Negative for bleed or purpura. MUSCULOSKELTAL: Negative for Myalgia or arthralgia. NEURLOGICAL: No LOC, Sz or syncope, blurred vision dizziness or abnormality.. BEHAVIORAL/PSYCH: Negative. ENDOCRINE: Negative. Past Medical History Past Medical History: Atrial Fibrillation, Coronary Artery Disease (CAD), Cancer, Chest Pain / Angina, Diabetes Mellitus, GERD/Reflux, Hyperlipidemia, Hypertension, Osteoarthritis (OA), Sleep Apnea/CPAP/BIPAP, Thyroid Disorder Additional Past Medical History / Comment(s): skin cancer, restless leg syndrome, varicose veins, IBS, History of Any Multi-Drug Resistant Organisms: None Reported Past Surgical History: Adenoidectomy, Appendectomy, Breast Surgery, Cholecystectomy, Heart Catheterization With Stent, Hysterectomy, Orthopedic Surgery, Pacemaker, Tonsillectomy Additional Past Surgical History / Comment(s): walt cataract, 2 stents, partial thyroidectomy, rt shoulder rotator cuff, walt breast biopsy, metal clip in rt breast Past Anesthesia/Blood Transfusion Reactions: No Reported Reaction Date of Last Stent Placement:: 1998 Type of Cardiac Device: Permanent Pacemaker, Unknown Device Placement Date:: 2014 Past Psychological History: Anxiety Smoking Status: Former smoker Past Alcohol Use History: None Reported, Occasional Additional Past Alcohol Use History / Comment(s): The patient was a smoker briefly as a kid. She drinks alcohol occasionally. Past Drug Use History: None Reported - Past Family History Mother Additional Family Medical History / Comment(s): Mother at age 76 from massive stroke. Brother(s) Additional Family Medical History / Comment(s): The patient had a total of 3 brothers. One brother from melanoma. One brother is with history of coronary artery disease status post CABG. One brother has from colon cancer with history of coronary artery disease. Patient does not have any sisters. Daughter(s) Family Medical History: No Reported History (Healthy 1 daughter) Son(s) History Unknown: Yes (Healthy 3 sons) Additional Family Medical History / Comment(s): Patient has 3 sons and 1 daughter. One son has history of coronary artery disease, second son has history of AICD. Patient has 1 son and 1 daughter with no major medical problems. Father Additional Family Medical History / Comment(s): Father at age 59 from a myocardial infarction. Medications and Allergies Home Medications Medication Instructions Recorded Confirmed Type Apixaban [Eliquis] 5 mg PO BID 04/19/17 06/01/20 History Ascorbic Acid [Vitamin C] 500 mg PO DAILY PRN 04/19/17 06/01/20 History Cholecalciferol [Vitamin D3 (25 3,000 unit PO DAILY 04/19/17 06/01/20 History Mcg = 1000 Iu)] glipiZIDE XL [Glucotrol XL] 2.5 mg PO DAILY 04/19/17 06/01/20 History Levothyroxine Sodium [Synthroid] 75 mcg PO DAILY 05/26/17 06/01/20 History Estradiol 0.05MG/24Hr Biwkptch 1 patch TRANSDERM SUWE 01/13/19 06/01/20 History [Vivelle-Dot 0.05 MG] Isosorbide Mononitrate ER [Imdur] 60 mg PO DAILY tab.er.24h 01/13/19 06/01/20 Rx traMADol HCL [Ultram] 50 mg PO BID PRN 01/13/19 06/01/20 History Nitroglycerin Sl Tabs [Nitrostat] 0.4 mg PO Q5M PRN #25 tab 01/18/19 06/01/20 Rx Atorvastatin [Lipitor] 20 mg PO HS 05/09/19 06/01/20 History Isosorbide Mononitrate ER [Imdur] 90 mg PO HS 05/09/19 06/01/20 History Melatonin 10 mg PO HS 05/09/19 06/01/20 History Spironolactone [Aldactone] 25 mg PO DAILY PRN 05/09/19 06/01/20 History ALPRAZolam [Xanax] 0.25 mg PO BID PRN 09/17/19 06/01/20 History hydrALAZINE HCL [Apresoline] 100 mg PO Q8H 09/17/19 06/01/20 History Aspirin 81 mg PO DAILY chew 02/07/20 06/01/20 Rx Metoprolol Tartrate [Lopressor] 100 mg PO TID 02/27/20 06/01/20 History Gabapentin [Neurontin] 100 mg PO BID PRN 06/01/20 06/01/20 History Loperamide [Imodium] 2 mg PO DAILY PRN 06/01/20 06/01/20 History cloNIDine HCL [Catapres] 0.1 mg PO BID PRN 06/01/20 06/01/20 History diphenhydrAMINE [Benadryl] 25 mg PO DAILY PRN 06/01/20 06/01/20 History Allergies Allergy/AdvReac Type Severity Reaction Status Date / Time JORGITO Inhibitors Allergy Severe Swelling Verified 06/01/20 13:34 cortisone Allergy Severe Rash/Hives, Verified 06/01/20 13:34 high BP Calcium Channel Blocking AdvReac SORES IN Verified 06/01/20 13:34 Agent Dilt MOUTH dust,trees Allergy Itching Uncoded 06/01/20 13:34 Physical Exam Vitals: Vital Signs Temp Pulse Pulse Resp BP BP Pulse Ox 06/01/20 15:00 97.8 F 62 16 159/74 96 06/01/20 13:52 97.8 F 62 14 159/74 96 06/01/20 13:34 97.9 F 64 14 109/59 96 06/01/20 12:29 97.8 F 62 14 117/60 96 06/01/20 11:38 61 18 167/92 99 06/01/20 10:45 98.2 F 64 18 184/91 98 Intake and Output 06/01/20 06/01/20 06/01/20 06:59 14:59 22:59 Other: Voiding Method Toilet Weight 87.997 kg General Appearance: Alert, cooperative, no distress, appears stated age. Neck HEENT: Supple, no lymphadenopathy, no thyroid enlargement, no carotid bruits. Lungs: Clear to auscultation without crackles or wheezes no rhonchi, no deformity. Chest Wall: Chest wall normal expansion with deep inspiration no tenderness and no deformity was found on exam, no costochondral pain or discomfort. Heart: Regular rate and rhythm, S1, S2 normal, no murmur, rub or gallop. Back: Symmetric, no curvature, ROM normal, no CVA tenderness. Abdomen: Soft, non-tender, bowel sounds active all four quadrants, no masses, no organomegaly. Extremities: Extremities normal, atraumatic, no cyanosis or edema. Pulses: 2+ and symmetric. Skin: Skin color, texture, tugor normal, no rashes or lesions. Neurologic: Alert oriented x3 cranial nerves II through XII intact, no motor deficit, no abnormal balance or gait. Results CBC & Chem 7: 06/01/20 10:49 06/01/20 10:49 Labs: Abnormal Lab Results - Last 24 Hours (Table) 06/01/20 Range/Units 10:49 Sodium 134 L (137-145) mmol/L BUN 31 H (7-17) mg/dL Glucose 146 H (74-99) mg/dL Thrombosis Risk Factor Assmnt - Choose All That Apply Each Risk Factor Represents 3 Points: Age 75 years or older Thrombosis Risk Factor Assessment Total Risk Factor Score: 3 Thrombosis Risk Factor Assessment Level: Moderate Risk Assessment and Plan Assessment: 1 chest pain and angina: Patient was hospitalized continue heparin drip continue current medication control the blood pressure CK with troponin 3 be done echocardiogram and consult cardiology. 2 urgent hypertension: We will add hydralazine on an as-needed basis also titrate long-acting nitro this point. 3 A. fib with RVR: Remain on metoprolol 100 mg 3 times a day and still on anticoagulation with Eliquis 5 mg twice a day. Next 4 type 2 diabetes: Continue patient on Accu-Chek sliding skills coverage. 5 hypothyroidism: Continue patient on levothyroxine 75 g daily. 6 hyperlipidemia: Remain on Lipitor 20 mg a day without side effect. 7 chronic diarrhea and atypical colitis: Remain on probiotic along with Imodium on an as-needed basis no diarrhea lately. 8 chronic neuropathy: Remain on gabapentin 100 mg twice a day. 9 GI prophylaxis: Continue patient on pantoprazole 50 mg a day. 10 DVT prophylaxis: Patient is on anticoagulation at this point. CODE STATUS: DO NOT RESUSCITATE. Admit patient to observation service for 1-2 nights.
[2020-06-01] MEDS ORDERED: ATORVASTATIN 20 MG TAB PO SCH (21:00)
[2020-06-01] MEDS ORDERED: MELATONIN 5 MG TABLET PO SCH (21:00)
[2020-06-01] MEDS ORDERED: ISOSORBIDE MONONITRATE ER 30 MG TAB.ER.24H PO SCH (21:00)
[2020-06-01] MEDS ORDERED: APIXABAN 5 MG TAB PO SCH (21:00)
[2020-06-01] MEDS: cloNIDine HCL 0.1 MG TAB PO PRN (21:45)
[2020-06-01] MEDS ORDERED: DOCUSATE 100 MG CAP PO STA (21:54)
[2020-06-01] MEDS ORDERED: HEPARIN SODIUM,PORCINE 5,000 UNIT/ML 1 ML VIAL IV PRN (23:17)
[2020-06-02] MEDS: traMADol 50 MG TAB PO PRN ×2 (00:02→07:52)
[2020-06-02] MEDS: NITROGLYCERIN OINT 1 INCH/GM PACKET TOPICAL SCH ×3 (00:03→12:30)
[2020-06-02] MEDS: hydrALAZINE HCL 50 MG TAB PO SCH ×2 (00:03→07:53)
[2020-06-02 02:15] VITALS: RESP 16
[2020-06-02] MEDS ORDERED: LEVOTHYROXINE 75 MCG TAB PO SCH (06:30)
[2020-06-02 07:40] VITALS: TEMP 98.3
[2020-06-02] MEDS: METOPROLOL TARTRATE 50 MG TAB PO SCH (07:53)
[2020-06-02] MEDS: cloNIDine HCL 0.1 MG TAB PO PRN (07:53)
[2020-06-02 08:53] LABS: Cholesterol 144 mg/dL (<200); HDL Cholesterol 51 mg/dL (40-60); LDL Cholesterol,Calculated 73 mg/dL (0-99); Triglycerides 99 mg/dL (<150)
[2020-06-02] MEDS ORDERED: ASPIRIN 81 MG PO SCH (09:00)
[2020-06-02] MEDS ORDERED: ISOSORBIDE MONONITRATE ER 60 MG TAB.ER.24H PO SCH (09:00)
[2020-06-02] MEDS ORDERED: ASPIRIN 325 MG TAB PO SCH (09:00)
[2020-06-02] MEDS ORDERED: cloNIDine HCL 0.2 MG TAB PO PRN (10:21)
[2020-06-02] MEDS ORDERED: cloNIDine HCL 0.1 MG TAB PO PRN (10:26)
[2020-06-02 12:35] VITALS: BP 119/59; PULSE 61
[2020-06-02] MEDS: HEPARIN SOD,PORK IN 0.45% NACL 25,000 UNIT in 0.45% NACL 1 250ML.BAG IV SCH (13:28)
--- NOTE | 2020-06-02 14:10 | P.CRDCN ---
History of Present Illness Consult date: 06/02/20 History of present illness: CHIEF COMPLAINT: chest pain HISTORY OF PRESENT ILLNESS: This is a 89-year old female with a past medical history significant for atrial fibrillation, diabetes mellitus, hypertension, hyperlipidemia, and permanent pacemaker implantation. Patient follows with a photo journalist out of [facility], Dr. Glaser. We have been asked to see the patient in consultation for chest pain. Patient states she woke up yesterday and took her blood pressure and it was 200s/100s. Patient states she took all her blood pressure medications and recheck her blood pressure and it was still elevated. She states a few hours after she woke up she began having some chest discomfort. She denied shortness of breath. Patient decided to come to the emergency room for further evaluation. Patient states her chest pain has resolved since coming to the hospital. She denies shortness of breath. Patient's blood pressure medications were adjusted by internal medicine and blood pressure is currently controlled with most recent reading of 119/59. Patient reports having a stress test earlier this year and states it was negative to her knowledge. DIAGNOSTICS: EKG reveals paced rhythm Chest xray chronic changes and cardiomegaly without acute pulmonary process Laboratory data: WBC 9.6. Hemoglobin 14.2. Platelet count 204. Sodium 134. Potassium 4.7. BUN 31. Creatinine 0.70. Magnesium 2.0. Troponin negative 3 Current home cardiac medications include Imdur 60mg in the AM and 90 mg at HS, Catapres 0.1 mg twice a day, Lipitor 20 mg daily, hydralazine 100 mg 3 times a day, Aldactone 25 mg daily, metoprolol 100 mg 3 times a day, aspirin 81 mg daily, and Eliquis 5 mg twice a day Echocardiogram completed revealed ejection fraction between 50 and 55%, [id number] aortic valve sclerosis, moderate mitral regurgitation, moderate tricuspid regurgitation, and moderate pulmonary hypertension REVIEW OF SYSTEMS: At the time of my exam: CONSTITUTIONAL: Denies fever or chills. HEENT: Denies blurred vision, vision changes, or eye pain. Denies hemoptysis CARDIOVASCULAR: Denies chest pain, orthopnea, PND or palpitations RESPIRATORY: No shortness of breath. GASTROINTESTINAL: Denies abdominal pain. Denies nausea or vomiting. HEMATOLOGIC: Denies bleeding disorders. GENITOURINARY: Denies any blood in urine. SKIN: Denies pruitis. Denies rash. PHYSICAL EXAM: VITAL SIGNS: Reviewed. GENERAL: Well-developed in no acute distress. HEENT: Head is normocephalic. Pupils are equal, round. Sclerae anicteric. Mucous membranes of the mouth are moist. Neck supple. No JVD or thyromegaly LUNGS: Respirations even and unlabored. Lungs essentially clear to auscultation bilaterally. HEART: Regular rate and rhythm. S1 and S2 heard. ABDOMEN: Soft. Nondistended. Nontender. EXTREMITIES: Normal range of motion. No clubbing or cyanosis. Peripheral pulses intact. No lower extremity edema NEUROLOGIC: Awake and alert. Oriented x 3. ASSESSMENT: Chest pain Paroxysmal atrial fibrillation, on group home anticoagulation with Eliquis Hypertension Hyperlipidemia Diabetes mellitus History of permanent pacemaker implantation Valvular heart disease: [id number] aortic valve sclerosis, moderate mitral regurgitation, moderate tricuspid regurgitation Moderate pulmonary hypertension PLAN: An acute coronary event has been ruled out Continue current cardiac medications Patient may be discharged home today from a cardiac perspective She is to follow up with her photo journalist, Dr. Glaser, within 1 week Nurse practitioner note has been reviewed by physician. Signing provider agrees with the documented findings, assessment, and plan of care. Past Medical History Past Medical History: Atrial Fibrillation, Coronary Artery Disease (CAD), Cancer, Chest Pain / Angina, Diabetes Mellitus, GERD/Reflux, Hyperlipidemia, Hypertension, Osteoarthritis (OA), Sleep Apnea/CPAP/BIPAP, Thyroid Disorder Additional Past Medical History / Comment(s): skin cancer, restless leg syndrome, varicose veins, IBS, History of Any Multi-Drug Resistant Organisms: None Reported Past Surgical History: Adenoidectomy, Appendectomy, Breast Surgery, Cholecystectomy, Heart Catheterization With Stent, Hysterectomy, Orthopedic Surgery, Pacemaker, Tonsillectomy Additional Past Surgical History / Comment(s): walt cataract, 2 stents, partial thyroidectomy, rt shoulder rotator cuff, walt breast biopsy, metal clip in rt breast Past Anesthesia/Blood Transfusion Reactions: No Reported Reaction Date of Last Stent Placement:: 1998 Type of Cardiac Device: Permanent Pacemaker, Unknown Device Placement Date:: 2014 Past Psychological History: Anxiety Smoking Status: Former smoker Past Alcohol Use History: None Reported, Occasional Additional Past Alcohol Use History / Comment(s): The patient was a smoker briefly as a kid. She drinks alcohol occasionally. Past Drug Use History: None Reported - Past Family History Mother Additional Family Medical History / Comment(s): Mother at age 76 from massive stroke. Brother(s) Additional Family Medical History / Comment(s): The patient had a total of 3 brothers. One brother from melanoma. One brother is with history of coronary artery disease status post CABG. One brother has from colon cancer with history of coronary artery disease. Patient does not have any sisters. Daughter(s) Family Medical History: No Reported History (Healthy 1 daughter) Son(s) History Unknown: Yes (Healthy 3 sons) Additional Family Medical History / Comment(s): Patient has 3 sons and 1 daughter. One son has history of coronary artery disease, second son has history of AICD. Patient has 1 son and 1 daughter with no major medical problems. Father Additional Family Medical History / Comment(s): Father at age 59 from a myocardial infarction. Medications and Allergies Home Medications Medication Instructions Recorded Confirmed Type Apixaban [Eliquis] 5 mg PO BID 04/19/17 06/01/20 History Ascorbic Acid [Vitamin C] 500 mg PO DAILY PRN 04/19/17 06/01/20 History Cholecalciferol [Vitamin D3 (25 3,000 unit PO DAILY 04/19/17 06/01/20 History Mcg = 1000 Iu)] glipiZIDE XL [Glucotrol XL] 2.5 mg PO DAILY 04/19/17 06/01/20 History Levothyroxine Sodium [Synthroid] 75 mcg PO DAILY 05/26/17 06/01/20 History Estradiol 0.05MG/24Hr Biwkptch 1 patch TRANSDERM SUWE 01/13/19 06/01/20 History [Vivelle-Dot 0.05 MG] Isosorbide Mononitrate ER [Imdur] 60 mg PO DAILY tab.er.24h 01/13/19 06/01/20 Rx traMADol HCL [Ultram] 50 mg PO BID PRN 01/13/19 06/01/20 History Nitroglycerin Sl Tabs [Nitrostat] 0.4 mg PO Q5M PRN #25 tab 01/18/19 06/01/20 Rx Atorvastatin [Lipitor] 20 mg PO HS 05/09/19 06/01/20 History Isosorbide Mononitrate ER [Imdur] 90 mg PO HS 05/09/19 06/01/20 History Melatonin 10 mg PO HS 05/09/19 06/01/20 History Spironolactone [Aldactone] 25 mg PO DAILY PRN 05/09/19 06/01/20 History ALPRAZolam [Xanax] 0.25 mg PO BID PRN 09/17/19 06/01/20 History hydrALAZINE HCL [Apresoline] 100 mg PO Q8H 09/17/19 06/01/20 History Aspirin 81 mg PO DAILY chew 02/07/20 06/01/20 Rx Metoprolol Tartrate [Lopressor] 100 mg PO TID 02/27/20 06/01/20 History Gabapentin [Neurontin] 100 mg PO BID PRN 06/01/20 06/01/20 History Loperamide [Imodium] 2 mg PO DAILY PRN 06/01/20 06/01/20 History diphenhydrAMINE [Benadryl] 25 mg PO DAILY PRN 06/01/20 06/01/20 History cloNIDine HCL [Catapres] 0.1 mg PO TID #0 06/02/20 06/01/20 Rx cloNIDine HCL [Catapres] 0.2 mg PO BID #60 tab 06/02/20 Rx Allergies Allergy/AdvReac Type Severity Reaction Status Date / Time JORGITO Inhibitors Allergy Severe Swelling Verified 06/01/20 13:34 cortisone Allergy Severe Rash/Hives, Verified 06/01/20 13:34 high BP Calcium Channel Blocking AdvReac SORES IN Verified 06/01/20 13:34 Agent Dilt MOUTH dust,trees Allergy Itching Uncoded 06/01/20 13:34 Physical Exam Vitals: Vital Signs Temp Pulse Pulse Resp BP BP Pulse Ox 06/01/20 15:00 97.8 F 62 16 159/74 96 06/01/20 13:52 97.8 F 62 14 159/74 96 06/01/20 13:34 97.9 F 64 14 109/59 96 06/01/20 12:29 97.8 F 62 14 117/60 96 06/01/20 11:38 61 18 167/92 99 06/01/20 10:45 98.2 F 64 18 184/91 98 Intake and Output 06/01/20 06/01/20 06/01/20 06:59 14:59 22:59 Other: Voiding Method Toilet Weight 87.997 kg Results 06/01/20 10:49 06/01/20 10:49 Cardiac Enzymes 06/01/20 06/01/20 Range/Units 10:49 10:49 AST 28 (14-36) U/L Troponin I <0.012 (0.000-0.034) ng/mL Coagulation 06/01/20 Range/Units 10:49 PT 9.9 (9.0-12.0) sec APTT 24.7 (22.0-30.0) sec CBC 06/01/20 Range/Units 10:49 WBC 9.6 (3.8-10.6) k/uL RBC 4.53 (3.80-5.40) m/uL Hgb 14.2 (11.4-16.0) gm/dL Hct 43.9 (34.0-46.0) % Plt Count 204 (150-450) k/uL Comprehensive Metabolic Panel 06/01/20 Range/Units 10:49 Sodium 134 L (137-145) mmol/L Potassium 4.7 (3.5-5.1) mmol/L Chloride 104 (98-107) mmol/L Carbon Dioxide 26 (22-30) mmol/L BUN 31 H (7-17) mg/dL Creatinine 0.70 (0.52-1.04) mg/dL Glucose 146 H (74-99) mg/dL Calcium 9.4 (8.4-10.2) mg/dL AST 28 (14-36) U/L ALT 20 (4-34) U/L Alkaline Phosphatase 64 (38-126) U/L Total Protein 6.3 (6.3-8.2) g/dL Albumin 3.5 (3.5-5.0) g/dL Current Medications Generic Name Dose Route Start Last Admin Trade Name Freq PRN Reason Stop Dose Admin Alprazolam 0.25 mg 06/01/20 15:12 Alprazolam 0.25 Mg Tab PO BID PRN Anxiety Aspirin 325 mg 06/02/20 09:00 Aspirin 325 Mg Tab PO DAILY DULCE Aspirin 81 mg 06/02/20 09:00 Aspirin 81 Mg PO DAILY DULCE Atorvastatin Calcium 20 mg 06/01/20 21:00 Atorvastatin 20 Mg Tab PO HS DULCE Clonidine 0.1 mg 06/01/20 15:12 Clonidine Hcl 0.1 Mg Tab PO BID PRN Hypertension Diphenhydramine HCl 25 mg 06/01/20 15:12 Diphenhydramine 25 Mg Cap PO DAILY PRN Allergic Reaction Gabapentin 100 mg 06/01/20 15:12 Gabapentin 100 Mg Cap PO BID PRN Pain Hydralazine HCl 100 mg 06/01/20 16:00 Hydralazine Hcl 50 Mg Tab PO Q8HR [facility] Heparin Sodium/Sodium Chloride 250 mls @ 10 mls/hr 06/01/20 13:15 06/01/20 1 3:27 25,000 unit/ Sodium Chloride IV 11.364 units/kg/hr .Q24H DULCE 10 mls/hr Administration Protocol 11.364 UNITS/KG/HR Isosorbide Mononitrate 60 mg 06/02/20 09:00 Isosorbide Mononitrate Er 60 Mg Tab.Er.24h PO DAILY [facility] Isosorbide Mononitrate 90 mg 06/01/20 21:00 Isosorbide Mononitrate Er 30 Mg Tab.Er.24h PO HS [facility] Levothyroxine Sodium 75 mcg 06/02/20 06:30 Levothyroxine 75 Mcg Tab PO DAILY@0630 [facility] Loperamide HCl 2 mg 06/01/20 15:12 Loperamide 2 Mg Cap PO DAILY PRN Diarrhea Melatonin 10 mg 06/01/20 21:00 Melatonin 5 Mg Tablet PO HS [facility] Metoprolol Tartrate 100 mg 06/01/20 16:00 Metoprolol Tartrate 50 Mg Tab PO TID [facility] Nitroglycerin 0.4 mg 06/01/20 13:13 Nitroglycerin Sl Tabs 0.4 Mg Tab SUBLINGUAL Q5M PRN Chest Pain Nitroglycerin 1 inch 06/01/20 18:00 Nitroglycerin Oint 1 Inch/Gm Packet TOPICAL Q6HR [facility] Nitroglycerin 0.4 mg 06/01/20 15:12 Nitroglycerin Sl Tabs 0.4 Mg Tab SUBLINGUAL Q5M PRN Chest Pain Spironolactone 25 mg 06/01/20 15:12 Spironolactone 25 Mg Tab PO DAILY PRN Edema Tramadol HCl 50 mg 06/01/20 15:12 Tramadol 50 Mg Tab PO BID PRN Pain Intake and Output 06/01/20 06/01/2006/01/20 06:59 14:59 22:59 Other: Voiding Method Toilet Weight 87.997 kg Patient Weight 06/02/20 06:59 Weight 87.997 kg 06/01/20 10:49 06/01/20 10:49
--- NOTE | 2020-06-02 14:40 | P.DS ---
Providers Date of admission: 06/01/20 13:13 Expected date of discharge: 06/02/20 Attending physician: Jasmine Mccord Consults: 06/01/20 13:13 Consult Physician Urgent Consulting Provider: [facility] Consult Reason/Comments: Unstable angina Do you want consulting provider notified?: Yes Primary care physician: [facility] Course: 89-year-old female one of my office patient was seen floor waxer at [facility] Dr. Cornejo with known to have history of coronary disease chronic diastolic congestive heart failure, urgent hypertension on multiple medication, hyperlipidemia and hyperglycemia who apparently woke up this morning her blood pressure was elevated she is taking her medication blood pressure was very high patient then developed to have sternal chest pain around 8:30 her blood pressure was extremely high the time with the anginal chest pain decided to call 911 and ended up coming to the emergency department at [facility] were was seen and evaluated her EKG showed wide QRS as a left bundle-branch block not changed from before her CK with troponin was negative for blood pressure still elevated was giving hydralazine brought the blood pressure down patient was started on heparin drip and admitted to the hospital will be seen cardiology CK with troponin 3 will be done patient had recent testing with her floor waxer including echo and stress test if her enzymes are negative readjust her medication and consider to adjust her long-acting nitro before sending her home in 24 hours. 06/02: Patient continues to have high blood pressure readings and medications have been clarified. Patient is to be on Catapres 0.2 mg twice daily and 0.13 times daily as needed for systolic blood pressure greater than 160. All other home medications to remain the same. Patient has been seen by cardiology and cleared for discharge home. Troponins have been negative on 3 draws. Triglycerides 99, cholesterol 144, LDL 73 and HDL 51. She has been afebrile, heart rate 74, blood pressure this morning 188/97 with repeat in the afternoon of 119/59, pulse ox 95% on room air. Patient will be discharged home today in stable condition. Discharge diagnoses: 1 chest pain and angina, resolved 2 urgent hypertension 3 paroxysmal atrial fibrillation 4 type 2 diabetes 5 hypothyroidism 6 hyperlipidemia 7 chronic diarrhea and atypical colitis 8 chronic neuropathy Discharge plan: Home Impression and plan of care have been directed as dictated by the signing physician. Tereza Arnett nurse practitioner acting as scribe for signing physician. Plan - Discharge Summary New Discharge Prescriptions: New cloNIDine HCL [Catapres] 0.2 mg PO BID #60 tab Continue Cholecalciferol [Vitamin D3 (25 Mcg = 1000 Iu)] 3,000 unit PO DAILY Ascorbic Acid [Vitamin C] 500 mg PO DAILY PRN PRN Reason: Cold Symptoms glipiZIDE XL [Glucotrol XL] 2.5 mg PO DAILY Apixaban [Eliquis] 5 mg PO BID Levothyroxine Sodium [Synthroid] 75 mcg PO DAILY traMADol HCL [Ultram] 50 mg PO BID PRN PRN Reason: Pain Estradiol 0.05MG/24Hr Biwkptch [Vivelle-Dot 0.05 MG] 1 patch TRANSDERM SUWE Isosorbide Mononitrate ER [Imdur] 60 mg PO DAILY tab.er.24h Nitroglycerin Sl Tabs [Nitrostat] 0.4 mg PO Q5M PRN #25 tab PRN Reason: Chest Pain Spironolactone [Aldactone] 25 mg PO DAILY PRN PRN Reason: Edema Melatonin 10 mg PO HS Atorvastatin [Lipitor] 20 mg PO HS Isosorbide Mononitrate ER [Imdur] 90 mg PO HS hydrALAZINE HCL [Apresoline] 100 mg PO Q8H ALPRAZolam [Xanax] 0.25 mg PO BID PRN PRN Reason: Anxiety Aspirin 81 mg PO DAILY chew Metoprolol Tartrate [Lopressor] 100 mg PO TID Loperamide [Imodium] 2 mg PO DAILY PRN PRN Reason: Diarrhea Gabapentin [Neurontin] 100 mg PO BID PRN PRN Reason: Pain diphenhydrAMINE [Benadryl] 25 mg PO DAILY PRN PRN Reason: Allergic Reaction Changed cloNIDine HCL [Catapres] 0.1 mg PO TID #0 Discharge Medication List Apixaban [Eliquis] 5 mg PO BID 04/19/17 [History] Ascorbic Acid [Vitamin C] 500 mg PO DAILY PRN 04/19/17 [History] Cholecalciferol [Vitamin D3 (25 Mcg = 1000 Iu)] 3,000 unit PO DAILY 04/19/17 [History] glipiZIDE XL [Glucotrol XL] 2.5 mg PO DAILY 04/19/17 [History] Levothyroxine Sodium [Synthroid] 75 mcg PO DAILY 05/26/17 [History] Estradiol 0.05MG/24Hr Biwkptch [Vivelle-Dot 0.05 MG] 1 patch TRANSDERM SUWE 01/13/19 [History] Isosorbide Mononitrate ER [Imdur] 60 mg PO DAILY tab.er.24h 01/13/19 [Rx] traMADol HCL [Ultram] 50 mg PO BID PRN 01/13/19 [History] Nitroglycerin Sl Tabs [Nitrostat] 0.4 mg PO Q5M PRN #25 tab 01/18/19 [Rx] Atorvastatin [Lipitor] 20 mg PO HS 05/09/19 [History] Isosorbide Mononitrate ER [Imdur] 90 mg PO HS 05/09/19 [History] Melatonin 10 mg PO HS 05/09/19 [History] Spironolactone [Aldactone] 25 mg PO DAILY PRN 05/09/19 [History] ALPRAZolam [Xanax] 0.25 mg PO BID PRN 09/17/19 [History] hydrALAZINE HCL [Apresoline] 100 mg PO Q8H 09/17/19 [History] Aspirin 81 mg PO DAILY chew 02/07/20 [Rx] Metoprolol Tartrate [Lopressor] 100 mg PO TID 02/27/20 [History] Gabapentin [Neurontin] 100 mg PO BID PRN 06/01/20 [History] Loperamide [Imodium] 2 mg PO DAILY PRN 06/01/20 [History] diphenhydrAMINE [Benadryl] 25 mg PO DAILY PRN 06/01/20 [History] cloNIDine HCL [Catapres] 0.1 mg PO TID #0 06/02/20 [Rx] cloNIDine HCL [Catapres] 0.2 mg PO BID #60 tab 06/02/20 [Rx] Follow up Appointment(s)/Referral(s): Karlo Locke MD [Primary Care Provider] - 1 Week (Offu=ice closed at this time. Please call on friday to schedule an appointment @ [phone]) Malou Glaser MD [REFERRING] - 1 Week (Appointment made for July 06, 2020 @ 1 pm. Please amke sure you attned this appointment.) Patient Instructions/Handouts: Clonidine (By mouth) Discharge Disposition: HOME SELF-CARE
[2020-06-02] MEDS ORDERED: cloNIDine HCL 0.2 MG TAB PO SCH (21:00)
== END 2020-06-02 15:02 | disposition home or self-care (01) ==
LOC: EC 10:37 → 3NCARDOBS 13:13 → 1SOBS 14:00
PROVIDERS: ADMIT Family Medicine; ATTEND Family Medicine
DX: I25.110 Atherosclerotic heart disease of native coronary artery with unstable angina pectoris (principal); E03.9 Hypothyroidism, unspecified; E11.9 Type 2 diabetes mellitus without complications; E78.00 Pure hypercholesterolemia, unspecified; E78.5 Hyperlipidemia, unspecified; F41.9 Anxiety disorder, unspecified; G25.81 Restless legs syndrome; G62.9 Polyneuropathy, unspecified; I08.1 Rheumatic disorders of both mitral and tricuspid valves; I11.0 Hypertensive heart disease with heart failure; I25.2 Old myocardial infarction; I27.20 Pulmonary hypertension, unspecified; I48.0 Paroxysmal atrial fibrillation; I50.32 Chronic diastolic (congestive) heart failure; K21.9 Gastro-esophageal reflux disease without esophagitis; K52.9 Noninfective gastroenteritis and colitis, unspecified; Z79.01 Long term (current) use of anticoagulants; Z79.82 Long term (current) use of aspirin; Z79.84 Long term (current) use of oral hypoglycemic drugs; Z79.890 Hormone replacement therapy; Z79.899 Other long term (current) drug therapy; Z80.0 Family history of malignant neoplasm of digestive organs; Z80.8 Family history of malignant neoplasm of other organs or systems; Z82.3 Family history of stroke; Z82.49 Family history of ischemic heart disease and other diseases of the circulatory system; Z85.828 Personal history of other malignant neoplasm of skin; Z87.891 Personal history of nicotine dependence; Z90.710 Acquired absence of both cervix and uterus; Z95.0 Presence of cardiac pacemaker
CPT/HCPCS: 96366 ×3; 96376; 96365; 99291; 36415; 93005 ×2; 93306; 80061; 80053; 83735; 84484; 85025; 85610; 85730 ×2; 71046; G0378 ×3; J1644 ×2

== ENCOUNTER 2020-06-15 23:48 | Observation (INO) | payer MEDICARE ==
[2020-06-16] MEDS ORDERED: NITROGLYCERIN OINT 1 INCH/GM PACKET TOPICAL STA (00:18)
[2020-06-16] MEDS ORDERED: MORPHINE SULFATE 2 MG/ML SYRINGE IVP STA (00:18)
[2020-06-16] MEDS ORDERED: NITROGLYCERIN SL TABS 0.4 MG TAB SUBLINGUAL STA (00:18)
[2020-06-16] MEDS ORDERED: ASPIRIN 81 MG PO STA (00:18)
--- NOTE | 2020-06-16 00:23 | ED ---
Chest Pain HPI - General Chief Complaint: Chest Pain Stated Complaint: Chest Pain, SOB Time Seen by Provider: 06/16/20 00:00 Source: patient Mode of arrival: wheelchair Limitations: no limitations - History of Present Illness Initial Comments: this patient is an 89-year-old woman who presents to be evaluated for chest pain. Patient states that she had been feeling in her usual state of health until late in the afternoon. She states that she had taken tramadol and her blood pressure medicine felt that this was upsetting to her stomach. She felt some nausea and had an episode of vomiting. After that she began to notice some pressuretype chest pain,sternal area. She took her blood pressure and noted that it was high as well. She did take a clonidine. she also took a total of two nitroglycerin, which did seem to reduce the chest pressure. In addition to the symptoms she has had a little bit of nonproductive cough tonight. No fever or chills. No upper respiratory congestion. She has not noted diaphoresis, palpitations, lightheadedness or syncope. No change in bowel movements or urination. No leg pain or swelling. MD Complaint: chest pain -: hour(s) Onset: during rest Pain Location: substernal Pain Radiation: none Severity: moderate Quality: heaviness Consistency: now resolved (partially) Improves With: nitroglycerin Worsens With: nothing Treatments Prior to Arrival: nitroglycerin - Related Data Home Medications Medication Instructions Recorded Confirmed Apixaban [Eliquis] 5 mg PO BID 04/19/17 06/16/20 Ascorbic Acid [Vitamin C] 500 mg PO DAILY PRN 04/19/17 06/16/20 Cholecalciferol [Vitamin D3 (25 3,000 unit PO DAILY 04/19/17 06/16/20 Mcg = 1000 Iu)] glipiZIDE XL [Glucotrol XL] 2.5 mg PO DAILY 04/19/17 06/16/20 Levothyroxine Sodium [Synthroid] 75 mcg PO DAILY 05/26/17 06/16/20 Estradiol 0.05MG/24Hr Biwkptch 1 patch TRANSDERM SUWE 01/13/19 06/16/20 [Vivelle-Dot 0.05 MG] traMADol HCL [Ultram] 50 mg PO BID PRN 01/13/19 06/16/20 Atorvastatin [Lipitor] 20 mg PO HS 05/09/19 06/16/20 Isosorbide Mononitrate ER [Imdur] 90 mg PO HS 05/09/19 06/16/20 Melatonin 10 mg PO HS 05/09/19 06/16/20 Spironolactone [Aldactone] 25 mg PO DAILY PRN 05/09/19 06/16/20 ALPRAZolam [Xanax] 0.25 mg PO BID PRN 09/17/19 06/16/20 hydrALAZINE HCL [Apresoline] 100 mg PO Q8H 09/17/19 06/16/20 Metoprolol Tartrate [Lopressor] 100 mg PO TID 02/27/20 06/16/20 Gabapentin [Neurontin] 100 mg PO BID PRN 06/01/20 06/16/20 Loperamide [Imodium] 2 mg PO DAILY PRN 06/01/20 06/16/20 diphenhydrAMINE [Benadryl] 25 mg PO DAILY PRN 06/01/20 06/16/20 cloNIDine HCL [Catapres] 0.1 mg PO TID PRN 06/16/20 06/16/20 Previous Rx's Medication Instructions Recorded Isosorbide Mononitrate ER [Imdur] 60 mg PO DAILY tab.er.24h 01/13/19 Nitroglycerin Sl Tabs [Nitrostat] 0.4 mg PO Q5M PRN #25 tab 01/18/19 Aspirin 81 mg PO DAILY chew 02/07/20 cloNIDine HCL [Catapres] 0.2 mg PO BID #60 tab 06/02/20 Allergies Allergy/AdvReac Type Severity Reaction Status Date / Time JORGITO Inhibitors Allergy Severe Swelling Verified 06/16/20 08:59 cortisone Allergy Severe Rash/Hives, Verified 06/16/20 08:59 high BP Calcium Channel Blocking AdvReac SORES IN Verified 06/16/20 08:59 Agent Dilt MOUTH dust,trees Allergy Itching Uncoded 06/16/20 08:59 Review of Systems ROS Statement: Those systems with pertinent positive or pertinent negative responses have been documented in the HPI. ROS Other: All systems not noted in ROS Statement are negative. Constitutional: Denies: fever, chills, weakness ENT: Denies: throat pain, congestion Respiratory: Reports: as per HPI, cough, dyspnea. Denies: wheezes, hemoptysis Cardiovascular: Reports: as per HPI, chest pain. Denies: palpitations, orthopnea, edema, syncope Gastrointestinal: Reports: as per HPI, nausea, vomiting. Denies: abdominal pain Genitourinary: Denies: dysuria, hematuria Musculoskeletal: Denies: back pain Skin: Denies: rash Neurological: Denies: headache, weakness, numbness EKG Findings - EKG Comments: EKG Findings:: twelve-lead ECG shows a ventricular paced rhythm at a rate of 79 bpm. - EKG Results: EKG: interpreted by AMELIA Past Medical History Past Medical History: Atrial Fibrillation, Coronary Artery Disease (CAD), Cancer, Chest Pain / Angina, Diabetes Mellitus, GERD/Reflux, Hyperlipidemia, Hypertension, Osteoarthritis (OA), Sleep Apnea/CPAP/BIPAP, Thyroid Disorder Additional Past Medical History / Comment(s): skin cancer, restless leg syndrome, varicose veins, IBS, History of Any Multi-Drug Resistant Organisms: None Reported Past Surgical History: Adenoidectomy, Appendectomy, Breast Surgery, Cholecystectomy, Heart Catheterization With Stent, Hysterectomy, Orthopedic Surgery, Pacemaker, Tonsillectomy Additional Past Surgical History / Comment(s): walt cataract, 2 stents, partial thyroidectomy, rt shoulder rotator cuff, walt breast biopsy, metal clip in rt breast Past Anesthesia/Blood Transfusion Reactions: No Reported Reaction Date of Last Stent Placement:: 1998 Type of Cardiac Device: Permanent Pacemaker, Unknown Device Placement Date:: 2014 Past Psychological History: Anxiety Smoking Status: Former smoker Past Alcohol Use History: Occasional Past Drug Use History: None Reported - Past Family History Mother Additional Family Medical History / Comment(s): Mother at age 76 from massive stroke. Brother(s) Additional Family Medical History / Comment(s): The patient had a total of 3 brothers. One brother from melanoma. One brother is with history of coronary artery disease status post CABG. One brother has from colon cancer with history of coronary artery disease. Patient does not have any sisters. Daughter(s) Family Medical History: No Reported History (Healthy 1 daughter) Son(s) History Unknown: Yes (Healthy 3 sons) Additional Family Medical History / Comment(s): Patient has 3 sons and 1 daught er. One son has history of coronary artery disease, second son has history of AICD. Patient has 1 son and 1 daughter with no major medical problems. Father Additional Family Medical History / Comment(s): Father at age 59 from a myocardial infarction. General Exam Limitations: no limitations General appearance: alert, in no apparent distress Head exam: Present: atraumatic, normocephalic Eye exam: Present: normal appearance. Absent: scleral icterus, conjunctival injection ENT exam: Present: normal oropharynx Neck exam: Present: normal inspection Respiratory exam: Absent: respiratory distress, wheezes, rales, rhonchi, stridor Cardiovascular Exam: Present: regular rate, normal rhythm, normal heart sounds. Absent: systolic murmur, diastolic murmur, rubs, gallop GI/Abdominal exam: Present: soft. Absent: distended, tenderness, guarding, rebound, rigid, mass Extremities exam: Present: normal inspection, normal capillary refill. Absent: pedal edema, calf tenderness Back exam: Present: normal inspection. Absent: CVA tenderness (R), CVA tenderness (L) Neurological exam: Present: alert Skin exam: Present: warm, dry, intact, normal color. Absent: rash Course Vital Signs 06/15/20 06/16/20 06/16/20 23:54 00:20 00:45 Temperature 97.3 F L Pulse Rate 82 63 Respiratory 18 20 20 Rate Blood Pressure 162/99 146/87 O2 Sat by Pulse 95 98 Oximetry 06/16/20 06/16/20 06/16/20 01:45 02:45 03:00 Temperature Pulse Rate 60 64 64 Respiratory 18 18 18 Rate Blood Pressure 155/92 155/80 138/90 O2 Sat by Pulse 97 98 98 Oximetry 06/16/20 03:35 Temperature Pulse Rate Respiratory Rate Blood Pressure 202/106 O2 Sat by Pulse Oximetry Disposition Clinical Impression: Chest pain Disposition: ADMITTED IP TO THIS HOSP Condition: Fair
[2020-06-16 00:37] LABS: Basophils # (A) 0.1 k/uL (0-0.2); Basophils % (A) 1 %; Eosinophils # (A) 0.1 k/uL (0-0.7); Eosinophils % (A) 1 %; HCT 46.2 % (34.0-46.0); HGB 14.8 gm/dL (11.4-16.0); Lymphocytes # (A) 1.3 k/uL (1.0-4.8); Lymphocytes % (A) 11 %; MCH 31.1 pg (25.0-35.0); MCHC 31.9 g/dL (31.0-37.0); MCV 97.4 fL (80.0-100.0); Mean Platelet Volume 7.5; Monocytes # (A) 1.2 k/uL (0-1.0); Monocytes % (A) 10 %; Neutrophils # (A) 9.3 k/uL (1.3-7.7); Neutrophils % (A) 76 %; Platelet Count 255 k/uL (150-450); RBC 4.75 m/uL (3.80-5.40); RDW 13.1 % (11.5-15.5); WBC 12.2 k/uL (3.8-10.6)
[2020-06-16 00:47] LABS: Calcium 9.5 mg/dL (8.4-10.2); Magnesium 1.8 mg/dL (1.6-2.3); Partial Thromboplastin Time 24.8 sec (22.0-30.0); Prothrombin Time 10.2 sec (9.0-12.0); Total Bilirubin 1.3 mg/dL (0.2-1.3); Total Protein 7.3 g/dL (6.3-8.2)
[2020-06-16 00:56] LABS: Potassium 5.4 mmol/L (3.5-5.1)
[2020-06-16] MEDS ORDERED: FUROSEMIDE 10 MG/ML 4 ML VIAL IV STA ×2 (01:21→10:40)
[2020-06-16 01:51] VITALS: RESP 18
--- NOTE | 2020-06-16 02:00 | XR ---
EXAM: XR Chest, 2 Views CLINICAL HISTORY: Chest pain TECHNIQUE: Frontal and lateral views of the chest. COMPARISON: June 01, 2020 FINDINGS: Lungs: Bilateral edema-like infiltrates. Pleural space: Unremarkable. No pneumothorax. No pleural fluid. Heart: Mild cardiomegaly. Mediastinum: Unremarkable. Bones/joints: Unremarkable. No acute abnormalities. Tubes, lines and devices: Stable implanted cardiac pacer. IMPRESSION: Bilateral edema-like infiltrates, likely representing CHF/fluid overload.
[2020-06-16] MEDS ORDERED: traMADol 50 MG TAB PO PRN (02:15)
[2020-06-16] MEDS ORDERED: GABAPENTIN 100 MG CAP PO PRN (02:15)
[2020-06-16] MEDS ORDERED: FUROSEMIDE 10 MG/ML 4 ML VIAL IV SCH (02:15)
[2020-06-16] MEDS ORDERED: ALPRAZolam 0.25 MG TAB PO PRN (02:15)
[2020-06-16] MEDS ORDERED: SPIRONOLACTONE 25 MG TAB PO PRN (02:15)
[2020-06-16] MEDS: hydrALAZINE HCL 50 MG TAB PO SCH ×2 (03:37→09:44)
[2020-06-16 05:32] LABS: Glucose,Whole Blood 190 mg/dL (75-99)
[2020-06-16] MEDS ORDERED: ENOXAPARIN 80 MG/0.8 ML SYRINGE SQ STA (05:49)
[2020-06-16] MEDS ORDERED: LEVOTHYROXINE 75 MCG TAB PO SCH (06:30)
[2020-06-16] MEDS ORDERED: APIXABAN 5 MG TAB PO SCH (09:00)
[2020-06-16] MEDS ORDERED: ISOSORBIDE MONONITRATE ER 60 MG TAB.ER.24H PO SCH ×2 (09:00→21:00)
[2020-06-16] MEDS ORDERED: RANOLAZINE 500 MG TAB.ER.12H PO SCH (09:00)
[2020-06-16] MEDS ORDERED: ASPIRIN 81 MG PO SCH (09:00)
[2020-06-16] MEDS: cloNIDine HCL 0.1 MG TAB PO SCH ×2 (09:26→16:24)
[2020-06-16] MEDS: METOPROLOL TARTRATE 50 MG TAB PO SCH ×2 (09:27→16:23)
[2020-06-16] MEDS: NITROGLYCERIN OINT 1 INCH/GM PACKET TOPICAL SCH ×2 (09:27→13:16)
[2020-06-16 09:44] LABS: Calcium 9.9 mg/dL (8.4-10.2)
[2020-06-16 09:51] LABS: Potassium 4.5 mmol/L (3.5-5.1)
[2020-06-16] MEDS ORDERED: HEPARIN SODIUM,PORCINE 5,000 UNIT/ML 1 ML VIAL IV PRN (10:41)
[2020-06-16] MEDS ORDERED: HEPARIN SOD,PORK IN 0.45% NACL 25,000 UNIT in 0.45% NACL 1 250ML.BAG IV SCH (11:00)
[2020-06-16 11:49] LABS: Basophils # (A) 0.1 k/uL (0-0.2); Basophils % (A) 1 %; Eosinophils # (A) 0.1 k/uL (0-0.7); Eosinophils % (A) 1 %; HCT 44.8 % (34.0-46.0); HGB 14.6 gm/dL (11.4-16.0); Lymphocytes # (A) 1.5 k/uL (1.0-4.8); Lymphocytes % (A) 14 %; MCH 31.5 pg (25.0-35.0); MCHC 32.6 g/dL (31.0-37.0); MCV 96.7 fL (80.0-100.0); Mean Platelet Volume 7.1; Monocytes # (A) 1.2 k/uL (0-1.0); Monocytes % (A) 11 %; Neutrophils # (A) 7.9 k/uL (1.3-7.7); Neutrophils % (A) 72 %; Platelet Count 253 k/uL (150-450); RBC 4.64 m/uL (3.80-5.40); RDW 13.1 % (11.5-15.5)
[2020-06-16 12:00] LABS: Partial Thromboplastin Time 26.7 sec (22.0-30.0); Prothrombin Time 10.3 sec (9.0-12.0)
--- NOTE | 2020-06-16 12:04 | P.HPIM ---
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 Brito's with known to have history of coronary disease chronic diastolic congestive heart failure, urgent hypertension on multiple medication, hyperlipidemia and hyperglycemia. Patient has had several admissions due to hypertension and chest pain. Yesterday afternoon she developed chest pain and upset stomach with nausea and had an episode of vomiting. She had a pressure type chest pain in the sternal area. She checked her blood pressure which was high and she took clonidine and 2 nitroglycerin which helped her chest pressure. No fever or chills. No nasal congestion, cough, shortness of breath. Patient presented to [facility] emergency center. Initial blo od pressure was 162/99, heart rate 82, pulse ox 95% on room air. EKG was ventricular paced rhythm at 79 bpm. Chest x-ray reveals bilateral edema-like infiltrates likely representing heart failure or fluid overload. WBC 12.2, hemoglobin 14.8. Sodium 133, potassium 5.4 and repeat this morning is 4.5. BUN 29 creatinine 0.71. Blood sugar 176. AST 110, ALT 122. Troponin 0.012, 0.039, 0.048. Because of elevated troponins, cardiology advised heart catheterization for tomorrow. Patient prefers to go to her cistern room operator at [place]. Cardiology has made contact with Dr. Glaser and patient will be transferred to [facility] for heart catheterization. Minoxidil and Ranexa have been ad ded to patient's medication regime. REVIEW OF SYSTEMS CONSTITUTIONAL: Well-developed no acute respiratory distress. EYES: No icterus sclerae, no conjunctivitis. EARS, NOSE, MOUTH, THROAT, and FACE: No sore throat, lymphadenopathy, carotid bruits or deformity. RESPIRATORY: No SOB cough or wheezes. CARDIOVASCULAR: Positive CP and Palpitation, positive PND, Orthopnea, and a ngina. GASTROINTESTINAL: No Abd pain, Nausea or vomiting, occasional Diarrhea no constipation, No GI Bleed, no distention or masses. GENITOURINARY: Negative for Hematuria or UTI, no kidney stones. INTEGUMENT/BREAST: Negative for any muscular injury with mild osteoarthritis.. HEMATOLOGIC/LYMPHATIC: Negative for bleed or purpura. MUSCULOSKELTAL: Negative for Myalgia or arthralgia. NEURLOGICAL: No LOC, Sz or syncope, blurred vision dizziness or abnormality.. BEHAVIORAL/PSYCH: Negative. ENDOCRINE: Negative. PHYSICAL EXAMINATION General Appearance: Alert, cooperative, no distress, appears stated age. Neck HEENT: Supple, no lymphadenopathy, no thyroid enlargement, no carotid bruits. Lungs: Clear to auscultation without crackles or wheezes no rhonchi, no deformit y. Chest Wall: Chest wall normal expansion with deep inspiration no tenderness and no deformity was found on exam, no costochondral pain or discomfort. Heart: Regular rate and rhythm, S1, S2 normal, no murmur, rub or gallop. Back: Symmetric, no curvature, ROM normal, no CVA tenderness. Abdomen: Soft, non-tender, bowel sounds active all four quadrants, no masses, no organomegaly. Extremities: Extremities normal, atraumatic, no cyanosis or edema. Pulses: 2+ and symmetric. Skin: Skin color, texture, tugor normal, no rashes or lesions. Neurologic: Alert oriented x3 cranial nerves II through XII intact, no motor deficit, no abnormal balance or gait. ASSESSMENT AND PLAN 1 chest pain and angina with elevated troponins. Cardiology consult appreciated. Patient started on minoxidil and Ranexa. Continue aspirin 81 mg daily, Lipitor 20 mg daily, Imdur 90 mg at bedtime and 60 mg daily, Lopressor 100 mg 3 times daily, heparin drip. 2 uncontrolled hypertension. Continue Catapres 0.1 mg 3 times daily, Lasix 40 mg daily, hydralazine 100 mg every 8 hours, Lopressor 100 mg 3 times daily. 3. Paroxysmal atrial fibrillation. Continue metoprolol 100 mg 3 times a day and still on anticoagulation with Eliquis 5 mg twice a day. Next 4 type 2 diabetes: Continue glipizide 2.5 mg daily and Accu-Chek sliding scale coverage. 5 hypothyroidism: Continue patient on levothyroxine 75 g daily. 6 hyperlipidemia: Remain on Lipitor 20 mg a day. 7 chronic diarrhea and atypical colitis: Remain on probiotic along with Imodium on an as-needed basis no diarrhea lately. 8 chronic diabetic neuropathy: Remain on gabapentin 100 mg twice a day. 9 GI prophylaxis: Continue patient on pantoprazole 50 mg a day. 10 DVT prophylaxis. Patient on heparin drip.. CODE STATUS: DO NOT RESUSCITATE. DISCHARGE PLAN HOME Impression and plan of care have been directed as dictated by the signing physician. Tereza Arnett nurse practitioner acting as scribe for signing physician. Past Medical History Past Medical History: Atrial Fibrillation, Coronary Artery Disease (CAD), Cancer, Chest Pain / Angina, Diabetes Mellitus, GERD/Reflux, Hyperlipidemia, Hypertension, Osteoarthritis (OA), Sleep Apnea/CPAP/BIPAP, Thyroid Disorder Additional Past Medical History / Comment(s): skin cancer, restless leg syndrome, varicose veins, IBS, History of Any Multi-Drug Resistant Organisms: None Reported Past Surgical History: Adenoidectomy, Appendectomy, Breast Surgery, Cholecystectomy, Heart Catheterization With Stent, Hysterectomy, Orthopedic Guerrero rgery, Pacemaker, Tonsillectomy Additional Past Surgical History / Comment(s): walt cataract, 2 stents, partial thyroidectomy, rt shoulder rotator cuff, walt breast biopsy, metal clip in rt breast Past Anesthesia/Blood Transfusion Reactions: No Reported Reaction Date of Last Stent Placement:: 1998 Type of Cardiac Device: Permanent Pacemaker, Unknown Device Placement Date:: 2014 Past Psychological History: Anxiety Smoking Status: Former smoker Past Alcohol Use History: Occasional Past Drug Use History: None Reported - Past Family History Mother Additional Family Medical History / Comment(s): Mother at age 76 from massive stroke. Brother(s) Additional Family Medical History / Comment(s): The patient had a total of 3 brothers. One brother from melanoma. One brother is with history of coronary artery disease status post CABG. One brother has from colon ca ncer with history of coronary artery disease. Patient does not have any sisters. Daughter(s) Family Medical History: No Reported History (Healthy 1 daughter) Son(s) History Unknown: Yes (Healthy 3 sons) Additional Family Medical History / Comment(s): Patient has 3 sons and 1 daughter. One son has history of coronary artery disease, second son has history of AICD. Patient has 1 son and 1 daughter with no major medical problems. Father Additional Family Medical History / Comment(s): Father at age 59 from a myocardial infarction. Medications and Allergies Home Medications Medication Instructions Recorded Confirmed Type Apixaban [Eliquis] 5 mg PO BID 04/19/17 06/16/20 History Ascorbic Acid [Vitamin C] 500 mg PO DAILY PRN 04/19/17 06/16/20 History Cholecalciferol [Vitamin D3 (25 3,000 unit PO DAILY 04/19/17 06/16/20 History Mcg = 1000 Iu)] glipiZIDE XL [Glucotrol XL] 2.5 mg PO DAILY 04/19/17 06/16/20 History Levothyroxine Sodium [Synthroid] 75 mcg PO DAILY 05/26/17 06/16/20 History Estradiol 0.05MG/24Hr Biwkptch 1 patch TRANSDERM SUWE 01/13/19 06/16/20 History [Vivelle-Dot 0.05 MG] Isosorbide Mononitrate ER [Imdur] 60 mg PO DAILY tab.er.24h 01/13/19 06/16/20 Rx traMADol HCL [Ultram] 50 mg PO BID PRN 01/13/19 06/16/20 History Nitroglycerin Sl Tabs [Nitrostat] 0.4 mg PO Q5M PRN #25 tab 01/18/19 06/16/20 Rx Atorvastatin [Lipitor] 20 mg PO HS 05/09/19 06/16/20 History Isosorbide Mononitrate ER [Imdur] 90 mg PO HS 05/09/19 06/16/20 History Melatonin 10 mg PO HS 05/09/19 06/16/20 History Spironolactone [Aldactone] 25 mg PO DAILY PRN 05/09/19 06/16/20 History ALPRAZolam [Xanax] 0.25 mg PO BID PRN 09/17/19 06/16/20 History hydrALAZINE HCL [Apresoline] 100 mg PO Q8H 09/17/19 06/16/20 History Aspirin 81 mg PO DAILY chew 02/07/20 06/16/20 Rx Metoprolol Tartrate [Lopressor] 100 mg PO TID 02/27/20 06/16/20 History Gabapentin [Neurontin] 100 mg PO BID PRN 06/01/20 06/16/20 History Loperamide [Imodium] 2 mg PO DAILY PRN 06/01/20 06/16/20 History diphenhydrAMINE [Benadryl] 25 mg PO DAILY PRN 06/01/20 06/16/20 History cloNIDine HCL [Catapres] 0.2 mg PO BID #60 tab 06/02/20 06/16/20 Rx cloNIDine HCL [Catapres] 0.1 mg PO TID PRN 06/16/20 06/16/20 History Allergies Allergy/AdvReac Type Severity Reaction Status Date / Time JORGITO Inhibitors Allergy Severe Swelling Verified 06/16/20 08:59 cortisone Allergy Severe Rash/Hives, Verified 06/16/20 08:59 high BP Calcium Channel Blocking AdvReac SORES IN Verified 06/16/20 08:59 Agent Dilt MOUTH dust,trees Allergy Itching Uncoded 06/16/20 08:59 Physical Exam Vitals: Vital Signs Temp Pulse Resp BP Pulse Ox 06/16/20 04:10 97.8 F 60 18 179/89 99 06/16/20 03:35 202/106 06/16/20 03:00 64 18 138/90 98 06/16/20 02:45 64 18 155/80 98 06/16/20 01:45 60 18 155/92 97 06/16/20 00:45 63 20 146/87 98 06/16/20 00:20 20 06/15/20 23:54 97.3 F L 82 18 162/99 95 Intake and Output 06/15/20 06/16/20 06/16/20 22:59 06:59 14:59 Other: Weight 87.997 kg Results CBC & Chem 7: 06/16/20 00:06 06/16/20 06:32 Labs: Abnormal Lab Results - Last 24 Hours (Table) 06/16/20 06/16/20 06/16/20 Range/Units 00:06 00:06 03:46 WBC 12.2 H (3.8-10.6) k/uL Hct 46.2 H (34.0-46.0) % Neutrophils # 9.3 H (1.3-7.7) k/uL Monocytes # 1.2 H (0-1.0) k/uL Sodium 133 L (137-145) mmol/L Potassium 5.4 H (3.5-5.1) mmol/L BUN 29 H (7-17) mg/dL Glucose 176 H (74-99) mg/dL POC Glucose (mg/dL) (75-99) mg/dL AST 110 H (14-36) U/L ALT 122 H (4-34) U/L Troponin I 0.039 H* (0.000-0.034) ng/mL 06/16/20 06/16/20 Range/Units 05:31 06:32 WBC (3.8-10.6) k/uL Hct (34.0-46.0) % Neutrophils # (1.3-7.7) k/uL Monocytes # (0-1.0) k/uL Sodium (137-145) mmol/L Potassium (3.5-5.1) mmol/L BUN (7-17) mg/dL Glucose (74-99) mg/dL POC Glucose (mg/dL) 190 H (75-99) mg/dL AST (14-36) U/L ALT (4-34) U/L Troponin I 0.048 H* (0.000-0.034) ng/mL
--- NOTE | 2020-06-16 12:22 | CONS ---
CONSULTATION This is an 89-year-old elderly lady who sees a pediatrician by name Dr. Malou Glaser in [facility]. She has had previous multivessel PCI, details of which are unavailable. Apparently in 1997, she had a stent here and subsequently additional stenting in [place] and also [facility]. She was here last week with an episode of chest discomfort to the hospital and was seen and evaluated by Cardiology and subsequently she followed up with her pediatrician in [facility], but did not have any additional testing performed. She has paroxysmal atrial fib and uses Eliquis. She has hypertension, hyperlipidemia, type 2 diabetes, and also sick sinus syndrome with an underlying permanent pacemaker. She came into the hospital mainly with complaints of increasing shortness of breath. She indicated that she took some tramadol and had an upset stomach, felt nauseated, vomiting, then had some chest pressure and came into the hospital. After arrival. Her symptoms have improved. She has no chest pain at the time of my evaluation, but the troponin profile suggests a non- ST elevation KS with initial troponin of 0.12 and subsequent troponins of 0.3 and 0.4. At the time of my evaluation, she is resting comfortably without symptoms. PAST MEDICAL HISTORY: 1. CAD with multivessel stenting. 2. Hypertension. 3. History of hyperlipidemia. 4. History of recent hospitalization with chest pain. 5. She also has hypothyroidism. 6. Type 2 diabetes mellitus. 7. She also has paroxysmal atrial fib but maintaining sinus rhythm now. 8. She has underlying sick sinus syndrome with a permanent pacemaker. MEDICATIONS: At home include Eliquis 5 mg b.i.d., vitamin supplements, Glucotrol XL 2.5 mg daily, Synthroid 75 mcg daily, atorvastatin 20 mg daily, Imdur 90 mg daily. She also takes the ranolazine. She takes metoprolol tartrate 100 mg t.i.d., Xanax, and hydralazine as well. ALLERGIES: ALLERGIC TO JORGITO INHIBITORS AND SOME CALCIUM CHANNEL BLOCKING AGENTS LIKE DILTIAZEM. PHYSICAL EXAMINATION: On examination, blood pressure is 130/88, pulse rate is about 70 per minute regular. HEENT unremarkable. Fundus was not examined by me. NECK: Supple. There is JVD of 1 cm. No carotid bruit. HEART exam reveals S1, S2 with ejection systolic murmur at the base with preserved second heart sounds. LUNGS: Bilateral decent air entry. ABDOMEN is soft, nontender. LOWER EXTREMITIES reveal diminished pulses. CENTRAL NERVOUS SYSTEM is normal. EKG revealed underlying atrial fibrillation with a ventricular paced rhythm. Underlying rhythm appears to be atrial fib. LABORATORY DATA: Suggests that her potassium was high at 5.4. This will be repeated this morning. Her troponin was initially normal, then went up to 0.03 and 0.04. The BNP is 3310. IMPRESSION: 1. Exacerbation of systolic heart failure. 2. Non ST elevation myocardial infarction. 3. Patient with known multivessel PCI in the past, details unavailable. 4. History of chronic/persistent atrial fibrillation with sick sinus syndrome and underlying pacemaker. 5. Type 2 diabetes mellitus. RECOMMENDATIONS: The patient is on Eliquis. I will place her on a heparin drip without bolus, hold Eliquis and she is advised to have a cardiac catheterization. I discussed with the patient the need for cardiac cath given her presentation and CHF and non-ST elevation KS, but the patient wishes to go to [facility]. I have personally spoken to Dr. Malou Glaser, her pediatrician, and she will try and make transfer arrangements. In the interim, I will hold the Eliquis, place her on a heparin drip at a low intensity without bolus and await further information from [facility]. If the patient is transferred, it will be out of her request and I do not believe there is any medical need or escalation of care for her transfer. I discussed my thoughts in detail with the patient. Thank you very much for the consult. MMODL / IJN: [id number] /
[2020-06-16] MEDS ORDERED: INSULIN ASPART (NovoLOG) 100 UNIT/ML VIAL SQ SCH (12:30)
[2020-06-16 13:22] VITALS: BMI 32.3
[2020-06-16 15:35] VITALS: BP 103/64; PULSE 73; TEMP 97.7
[2020-06-16] MEDS ORDERED: DOCUSATE 100 MG CAP PO SCH (16:00)
[2020-06-16] MEDS ORDERED: ATORVASTATIN 20 MG TAB PO SCH (21:00)
[2020-06-16] MEDS ORDERED: MELATONIN 5 MG TABLET PO SCH (21:00)
[2020-06-17] MEDS ORDERED: PANTOPRAZOLE 40 MG TABLET PO SCH (07:30)
[2020-06-17] MEDS ORDERED: FUROSEMIDE 40 MG TAB PO SCH (09:00)
== END 2020-06-16 17:30 ==
LOC: EC 23:48 → 3NCARDOBS 06-16 02:13
PROVIDERS: ADMIT Internal Medicine Geriatric Medicine; ATTEND Internal Medicine Geriatric Medicine
DX: I21.4 Non-ST elevation (NSTEMI) myocardial infarction (principal); I50.43 Acute on chronic combined systolic (congestive) and diastolic (congestive) heart failure; E03.9 Hypothyroidism, unspecified; E11.40 Type 2 diabetes mellitus with diabetic neuropathy, unspecified; E78.5 Hyperlipidemia, unspecified; F41.9 Anxiety disorder, unspecified; G25.81 Restless legs syndrome; I11.0 Hypertensive heart disease with heart failure; I25.119 Atherosclerotic heart disease of native coronary artery with unspecified angina pectoris; I48.19 Other persistent atrial fibrillation; I49.5 Sick sinus syndrome; Z20.828 Contact with and (suspected) exposure to other viral communicable diseases; K52.9 Noninfective gastroenteritis and colitis, unspecified; Z66 Do not resuscitate; Z79.01 Long term (current) use of anticoagulants; Z79.82 Long term (current) use of aspirin; Z79.84 Long term (current) use of oral hypoglycemic drugs; Z79.890 Hormone replacement therapy; Z79.899 Other long term (current) drug therapy; Z80.0 Family history of malignant neoplasm of digestive organs; Z80.8 Family history of malignant neoplasm of other organs or systems; Z82.3 Family history of stroke; Z82.49 Family history of ischemic heart disease and other diseases of the circulatory system; Z85.828 Personal history of other malignant neoplasm of skin; Z87.891 Personal history of nicotine dependence
CPT/HCPCS: 96372; 96376; 96374; 96375; 99285; 36415; 93005; 83880; 80053; 83735; 84484; 85025; 85610; 85730; 87635; 71046; G0378; J1940; S0139; J1650; J2270; J1644; 80048

== ENCOUNTER 2020-07-05 14:57 | Observation (INO) | payer MEDICARE ==
[2020-07-05] MEDS ORDERED: NITROGLYCERIN OINT 1 INCH/GM PACKET TOPICAL STA (15:36)
--- NOTE | 2020-07-05 15:38 | ED ---
Chest Pain HPI - General Chief Complaint: Chest Pain Stated Complaint: Chest pain Time Seen by Provider: 07/05/20 15:07 Source: patient, RN notes reviewed, old records reviewed Mode of arrival: wheelchair Limitations: no limitations - History of Present Illness Initial Comments: This 89-year-old female with a history of known coronary vascular disease who was actually evaluated here at [address] last week who is back today with complaints of the onset of chest pain this started around 11:30 this morning was initially more than 5/10 severity she took a nitroglycerin was old which should help with second one did help somewhat. Upon arrival here she was placed on oxygen she states is really does help. No nausea vomiting fevers chills sweats other symptoms. It does feel like the previous cardiac events. MD Complaint: chest pain, other - Related Data Home Medications Medication Instructions Recorded Confirmed Apixaban [Eliquis] 5 mg PO BID 04/19/17 07/05/20 Ascorbic Acid [Vitamin C] 500 mg PO DAILY PRN 04/19/17 07/05/20 Cholecalciferol [Vitamin D3 (25 3,000 unit PO DAILY 04/19/17 07/05/20 Mcg = 1000 Iu)] glipiZIDE XL [Glucotrol XL] 2.5 mg PO DAILY 04/19/17 07/05/20 Levothyroxine Sodium [Synthroid] 75 mcg PO DAILY 05/26/17 07/05/20 Estradiol 0.05MG/24Hr Biwkptch 1 patch TRANSDERM SUWE 01/13/19 07/05/20 [Vivelle-Dot 0.05 MG] traMADol HCL [Ultram] 50 mg PO BID PRN 01/13/19 07/05/20 Atorvastatin [Lipitor] 20 mg PO HS 05/09/19 07/05/20 Isosorbide Mononitrate ER [Imdur] 90 mg PO HS 05/09/19 07/05/20 Melatonin 10 mg PO HS 05/09/19 07/05/20 Spironolactone [Aldactone] 25 mg PO DAILY PRN 05/09/19 07/05/20 ALPRAZolam [Xanax] 0.25 mg PO BID PRN 09/17/19 07/05/20 hydrALAZINE HCL [Apresoline] 100 mg PO Q8H 09/17/19 07/05/20 Metoprolol Tartrate [Lopressor] 100 mg PO TID 02/27/20 07/05/20 Gabapentin [Neurontin] 100 mg PO BID PRN 06/01/20 07/05/20 Loperamide [Imodium] 2 mg PO DAILY PRN 06/01/20 07/05/20 diphenhydrAMINE [Benadryl] 25 mg PO DAILY PRN 06/01/20 07/05/20 cloNIDine HCL [Catapres] 0.1 mg PO TID PRN 06/16/20 07/05/20 Furosemide [Lasix] 20 mg PO Q48H 07/05/20 07/05/20 Previous Rx's Medication Instructions Recorded Isosorbide Mononitrate ER [Imdur] 60 mg PO DAILY tab.er.24h 01/13/19 Nitroglycerin Sl Tabs [Nitrostat] 0.4 mg PO Q5M PRN #25 tab 01/18/19 Aspirin 81 mg PO DAILY chew 02/07/20 cloNIDine HCL [Catapres] 0.2 mg PO BID #60 tab 06/02/20 Allergies Allergy/AdvReac Type Severity Reaction Status Date / Time JORGITO Inhibitors Allergy Severe Swelling Verified 07/05/20 16:10 cortisone Allergy Severe Rash/Hives, Verified 07/05/20 16:10 high BP Calcium Channel Blocking AdvReac SORES IN Verified 07/05/20 16:10 Agent Dilt MOUTH dust,trees Allergy Itching Uncoded 06/16/20 08:59 Review of Systems ROS Statement: Those systems with pertinent positive or pertinent negative responses have been documented in the HPI. ROS Other: All systems not noted in ROS Statement are negative. EKG Findings - EKG Results: EKG: interpreted by ERMD (Ventricular paced rhythm of 77 QRS 158 QT since QTC 434/491 this is unchanged compared to one dated 06/16/20) Past Medical History Past Medical History: Atrial Fibrillation, Coronary Artery Disease (CAD), Cancer, Chest Pain / Angina, Diabetes Mellitus, GERD/Reflux, Hyperlipidemia, Hypertension, Osteoarthritis (OA), Sleep Apnea/CPAP/BIPAP, Thyroid Disorder Additional Past Medical History / Comment(s): skin cancer, restless leg syndrome, varicose veins, IBS, History of Any Multi-Drug Resistant Organisms: None Reported Past Surgical History: Adenoidectomy, Appendectomy, Breast Surgery, Cholecystectomy, Heart Catheterization With Stent, Hysterectomy, Orthopedic Surgery, Pacemaker, Tonsillectomy Additional Past Surgical History / Comment(s): walt cataract, 2 stents, partial thyroidectomy, rt shoulder rotator cuff, walt breast biopsy, metal clip in rt breast Past Anesthesia/Blood Transfusion Reactions: No Reported Reaction Date of Last Stent Placement:: 1998 Type of Cardiac Device: Permanent Pacemaker, Unknown Device Placement Date:: 2014 Past Psychological History: Anxiety Smoking Status: Former smoker Past Alcohol Use History: Occasional Past Drug Use History: None Reported - Past Family History Mother Additional Family Medical History / Comment(s): Mother at age 76 from massive stroke. Brother(s) Additional Family Medical History / Comment(s): The patient had a total of 3 brothers. One brother from melanoma. One brother is with history of coronary artery disease status post CABG. One brother has from colon cancer with history of coronary artery disease. Patient does not have any s isters. Daughter(s) Family Medical History: No Reported History (Healthy 1 daughter) Son(s) History Unknown: Yes (Healthy 3 sons) Additional Family Medical History / Comment(s): Patient has 3 sons and 1 daughter. One son has history of coronary artery disease, second son has history of AICD. Patient has 1 son and 1 daughter with no major medical problems. Father Additional Family Medical History / Comment(s): Father at age 59 from a myocardial infarction. General Exam - General Exam Comments Initial Comments: This is a well-developed well-nourished awake alert oriented 3 female Limitations: no limitations General appearance: alert, in no apparent distress Head exam: Present: atraumatic, normocephalic, normal inspection Eye exam: Present: normal appearance, PERRL, EOMI. Absent: scleral icterus, conjunctival injection, periorbital swelling ENT exam: Present: normal exam, mucous membranes moist Neck exam: Present: normal inspection. Absent: tenderness, meningismus, lymphadenopathy Respiratory exam: Present: normal lung sounds bilaterally. Absent: respiratory distress, wheezes, rales, rhonchi, stridor Cardiovascular Exam: Present: regular rate, normal rhythm, normal heart sounds. Absent: systolic murmur, diastolic murmur, rubs, gallop, clicks GI/Abdominal exam: Present: soft, normal bowel sounds. Absent: distended, tenderness, guarding, rebound, rigid Extremities exam: Present: normal inspection, full ROM, normal capillary refill. Absent: tenderness, pedal edema, joint swelling, calf tenderness Back exam: Present: normal inspection Neurological exam: Present: alert, oriented X3, CN II-XII intact Psychiatric exam: Present: normal affect, normal mood Skin exam: Present: warm, dry, intact, normal color. Absent: rash Course Vital Signs 07/05/20 07/05/20 07/05/20 15:03 15:57 18:03 Temperature 98.2 F Pulse Rate 84 60 60 Respiratory 18 18 18 Rate Blood Pressure 142/89 129/67 125/62 O2 Sat by Pulse 94 L 98 Oximetry - Reevaluation(s) Reevaluation #1: 07/05/20 19:22 His discomfort has improved. Chest Pain MDM - MDM Imaging reviewed evidence of increased pulmonary vascular markings consistent with congestive failure. I did discuss findings with the patient as well as Dr. Mccord. Patient will be admitted for IV diuresis and serial enzymes. Critical Care Time Critical Care Time: Yes Total Critical Care Time: 31 Critical Care Time: Critical care time includes initial presentation history physical labs x-rays discussed with paramedics. Review of old charting was available several reevaluation the patient discussion with the main physician admission orders and documentation of the above Disposition Clinical Impression: Unstable angina pectoris, Chest pain, Congestive heart failure (CHF) Disposition: ADMITTED IP TO THIS [facility] Condition: Fair Referrals: Karlo Locke MD [Primary Care Provider] - 1-2 days
[2020-07-05 15:47] LABS: Basophils % (A) 1 %; Eosinophils # (A) 0.2 k/uL (0-0.7); Eosinophils % (A) 2 %; HGB 13.1 gm/dL (11.4-16.0); Lymphocytes # (A) 0.9 k/uL (1.0-4.8); Lymphocytes % (A) 11 %; MCH 31.5 pg (25.0-35.0); MCHC 32.8 g/dL (31.0-37.0); Mean Platelet Volume 7.4; Monocytes # (A) 0.7 k/uL (0-1.0); Monocytes % (A) 9 %; Neutrophils # (A) 6.3 k/uL (1.3-7.7); Neutrophils % (A) 76 %; Platelet Count 222 k/uL (150-450); RBC 4.16 m/uL (3.80-5.40); RDW 13.4 % (11.5-15.5); WBC 8.3 k/uL (3.8-10.6)
[2020-07-05 16:06] LABS: Partial Thromboplastin Time 24.5 sec (22.0-30.0); Prothrombin Time 10.2 sec (9.0-12.0)
[2020-07-05 16:08] LABS: D-Dimer 1.07 mg/L FEU (<0.60)
[2020-07-05 16:10] LABS: Albumin 3.3 g/dL (3.5-5.0); Calcium 9.4 mg/dL (8.4-10.2); Magnesium 1.9 mg/dL (1.6-2.3); Potassium 4.4 mmol/L (3.5-5.1); Total Bilirubin 0.8 mg/dL (0.2-1.3); Total Protein 6.1 g/dL (6.3-8.2)
--- NOTE | 2020-07-05 16:20 | XR ---
EXAMINATION TYPE: XR chest 2V DATE OF EXAM: 07/05/2020 COMPARISON: Chest x-ray 19 days ago. HISTORY: Chest pain and shortness of breath. TECHNIQUE: Frontal and lateral views of the chest are obtained. FINDINGS: There is cardiomegaly with dual-lead pacemaker and atherosclerotic aorta. There is centr al vascular along with tiny bilateral pleural effusions redemonstrated. No pneumothorax bilaterally. The osseous structures are intact. IMPRESSION: Correlate for CHF exacerbation as there is cardiomegaly with mild central vascular conge stion and tiny bilateral pleural effusions redemonstrated. No significant change from prior.
[2020-07-05] MEDS ORDERED: FUROSEMIDE 10 MG/ML 4 ML VIAL IV STA (18:42)
[2020-07-05] MEDS ORDERED: NITROGLYCERIN SL TABS 0.4 MG TAB SUBLINGUAL PRN (19:24)
[2020-07-05] MEDS ORDERED: HEPARIN SODIUM,PORCINE 5,000 UNIT/ML 1 ML VIAL IV ONE (19:24)
[2020-07-05] MEDS ORDERED: SPIRONOLACTONE 25 MG TAB PO PRN (19:26)
[2020-07-05] MEDS ORDERED: diphenhydrAMINE 25 MG CAP PO PRN (19:26)
[2020-07-05] MEDS ORDERED: ASCORBIC ACID 500 MG TAB PO PRN (19:26)
[2020-07-05] MEDS ORDERED: traMADol 50 MG TAB PO PRN (19:26)
[2020-07-05] MEDS ORDERED: LOPERAMIDE 2 MG CAP PO PRN (19:26)
[2020-07-05] MEDS ORDERED: GABAPENTIN 100 MG CAP PO PRN (19:26)
[2020-07-05] MEDS ORDERED: ALPRAZolam 0.25 MG TAB PO PRN (19:26)
[2020-07-05] MEDS ORDERED: HEPARIN SOD,PORK IN 0.45% NACL 25,000 UNIT in 0.45% NACL 1 250ML.BAG IV SCH (19:30)
[2020-07-05 21:19] LABS: Glucose,Whole Blood 198 mg/dL (75-99)
[2020-07-05] MEDS: hydrALAZINE HCL 50 MG TAB PO SCH (21:20)
[2020-07-05] MEDS: cloNIDine HCL 0.2 MG TAB PO SCH (21:21)
[2020-07-05] MEDS: APIXABAN 5 MG TAB PO SCH (21:21)
[2020-07-05] MEDS: ISOSORBIDE MONONITRATE ER 30 MG TAB.ER.24H PO SCH (21:21)
[2020-07-05] MEDS: ATORVASTATIN 20 MG TAB PO SCH (21:21)
[2020-07-05] MEDS: INSULIN ASPART (NovoLOG) 100 UNIT/ML VIAL SQ SCH (21:22)
[2020-07-05] MEDS: MELATONIN 5 MG TABLET PO SCH (21:27)
[2020-07-05] MEDS ORDERED: AZITHROMYCIN 500 MG in SODIUM CHLORIDE 0.9% 250 ML IVPB ONE (22:03)
--- NOTE | 2020-07-05 22:54 | CT ---
EXAMINATION TYPE: CT angio chest DATE OF EXAM: 07/05/2020 COMPARISON: None HISTORY: elevated d-dimer CT DLP: 418.7 mGycm Automated exposure control for dose reduction was used. CONTRAST: Performed with IV Contrast, patient injected with 100 mL of Isovue 370. There are 3-D post processed images. There is mild bilateral pleural effusions. More pleural fluid seen on the right side compared to the left. Heart is borderline enlarged. There is no evidence of a pulmonary mass. There is mild subsegmen christopher atelectasis at the lung bases. Thoracic aorta is atheromatous. 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 There is no dissection . There is normal contrast opacification of the pulmonary arteries. There are no filling defects. There is no mediastinal adenopathy. There are no hilar masses. There is spurring in the thoracic spin e. IMPRESSION: No evidence of pulmonary embolism. Bilateral pleural effusions and mild cardiomegaly consistent with some congestive heart failure. Mild aneurysm of the ascending aorta.
[2020-07-05 23:31] LABS: C Reactive Protein 19.9 mg/L (<10.0)
[2020-07-05] MEDS: METOPROLOL TARTRATE 50 MG TAB PO SCH (23:37)
[2020-07-05 23:47] LABS: Glucose,Whole Blood 187 mg/dL (75-99)
[2020-07-06] MEDS: NITROGLYCERIN OINT 1 INCH/GM PACKET TOPICAL SCH ×4 (01:59→19:42)
[2020-07-06] MEDS: hydrALAZINE HCL 50 MG TAB PO SCH ×3 (05:23→23:05)
[2020-07-06] MEDS: LEVOTHYROXINE 75 MCG TAB PO SCH (05:24)
[2020-07-06 07:00] LABS: Glucose,Whole Blood 124 mg/dL (75-99)
[2020-07-06] MEDS: INSULIN ASPART (NovoLOG) 100 UNIT/ML VIAL SQ SCH ×4 (07:30→23:11)
[2020-07-06] MEDS: FUROSEMIDE 10 MG/ML 4 ML VIAL IV SCH ×2 (07:44→23:03)
[2020-07-06] MEDS: METOPROLOL TARTRATE 50 MG TAB PO SCH ×3 (07:45→23:25)
[2020-07-06] MEDS: cloNIDine HCL 0.2 MG TAB PO SCH ×2 (07:45→23:05)
[2020-07-06] MEDS: ASPIRIN 325 MG TAB PO SCH (07:45)
[2020-07-06] MEDS: CHOLECALCIFEROL 1,000 UNIT TAB PO SCH (07:45)
[2020-07-06] MEDS: APIXABAN 5 MG TAB PO SCH ×2 (07:45→23:05)
[2020-07-06] MEDS: ALBUTEROL HFA INHALER INHALATION SCH ×4 (08:10→20:03)
[2020-07-06 08:21] LABS: Cholesterol 107 mg/dL (<200); HDL Cholesterol 35 mg/dL (40-60); LDL Cholesterol,Calculated 49 mg/dL (0-99); Triglycerides 115 mg/dL (<150)
[2020-07-06] MEDS: ISOSORBIDE MONONITRATE ER 60 MG TAB.ER.24H PO SCH (09:12)
--- NOTE | 2020-07-06 09:32 | P.CRDCN ---
History of Present Illness Consult date: 07/06/20 Requesting physician: Jasmine Mccord Reason for Consult (text): chf Chief complaint: worsening shortness of breath History of present illness: This is a pleasant 89-year-old female with a past medical history of hypertension, hyperlipidemia, atrial fibrillation, diabetes permanent pacemaker implantation, ND 2 and prior stenting. 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 Glaser [place]. She was recently hospitalized with symptoms of chest discomfort and at that time recommended to undergo cardiac catheterization due to troponin profile suggestive of non-ST elevation ND. She was, upon her request, transferred to [place] to be seen by her own physicians. No cardiac catheterization was done and she was discharged home in feeling well up until yesterday. She woke up yesterday not feeling well but had not supple the night before. She laid down to take a nap when she woke up she noticed significantly worsening shortness of breath and subsequently came to the emergency room to be evaluated. Chest x-ray on admission recommended correlation for CHF exacerbation is there is cardiomegaly with mild central vascular congestion and tiny bilateral pleural effusions we demonstrated, no significant change prior. EKG on admission showed atrial fibrillation with ventricular paced rhythm. Her d-dimer was elevated and a CT of the chest was done which showed no evidence for pulmonary embolism, bilateral pleural effusions and mild cardiomegaly consistent with some congestive heart failure, for centimeter aneurysm of the ascending aorta. Laboratory values showed troponins negative 3 and in NT proBNP level 3190 with a previous NT proBNP on the sixth of this month of 3310. She has been initiated on IV Lasix. Covid PCR was done which came back to be positive which was previously negative on the sixth of this month. Overall this morning she is feeling quite a bit better. She had been noticing some edema in her lower extremities which is fairly normal but this has improved this morning. Her breathing is a bit better. She complains of some sinus drainage. She has been afebrile and her vital signs are stable. She complains of orthopnea but this is chronic in nature for several years. She's had no complaints of chest discomfort. Past Medical History Past Medical History: Atrial Fibrillation, Coronary Artery Disease (CAD), Canc er, Chest Pain / Angina, Diabetes Mellitus, GERD/Reflux, Hyperlipidemia, Hypertension, Osteoarthritis (OA), Sleep Apnea/CPAP/BIPAP, Thyroid Disorder Additional Past Medical History / Comment(s): skin cancer, restless leg syndrome, varicose veins, IBS, History of Any Multi-Drug Resistant Organisms: None Reported Past Surgical History: Adenoidectomy, Appendectomy, Breast Surgery, Cholecystectomy, Heart Catheterization With Stent, Hysterectomy, Orthopedic Surgery, Pacemaker, Tonsillectomy Additional Past Surgical History / Comment(s): walt cataract, 2 stents, partial thyroidectomy, rt shoulder rotator cuff, walt breast biopsy, metal clip in rt breast Past Anesthesia/Blood Transfusion Reactions: No Reported Reaction Date of Last Stent Placement:: 1998 Type of Cardiac Device: Permanent Pacemaker, Unknown Device Placement Date:: 2014 Past Psychological History: Anxiety Smoking Status: Former smoker Past Alcohol Use History: Occasional Additional Past Alcohol Use History / Comment(s): The patient was a smoker briefly as a kid. She drinks alcohol occasionally. Past Drug Use History: None Reported - Past Family History Mother Additional Family Medical History / Comment(s): Mother at age 76 from massive stroke. Brother(s) Additional Family Medical History / Comment(s): The patient had a total of 3 brothers. One brother from melanoma. One brother is with history of coronary artery disease status post CABG. One brother has from colon cancer with history of coronary artery disease. Patient does not have any sisters. Daughter(s) Family Medical History: No Reported History (Healthy 1 daughter) Son(s) History Unknown: Yes (Healthy 3 sons) Additional Family Medical History / Comment(s): Patient has 3 sons and 1 daughter. One son has history of coronary artery disease, second son has history of AICD. Patient has 1 son and 1 daughter with no major medical pro blems. Father Additional Family Medical History / Comment(s): Father at age 59 from a myocardial infarction. Medications and Allergies Home Medications Medication Instructions Recorded Confirmed Type Apixaban [Eliquis] 5 mg PO BID 04/19/17 07/05/20 History Ascorbic Acid [Vitamin C] 500 mg PO DAILY PRN 04/19/17 07/05/20 History Cholecalciferol [Vitamin D3 (25 3,000 unit PO DAILY 04/19/17 07/05/20 History Mcg = 1000 Iu)] glipiZIDE XL [Glucotrol XL] 2.5 mg PO DAILY 04/19/17 07/05/20 History Levothyroxine Sodium [Synthroid] 75 mcg PO DAILY 05/26/17 07/05/20 History Estradiol 0.05MG/24Hr Biwkptch 1 patch TRANSDERM SUWE 01/13/19 07/05/20 History [Vivelle-Dot 0.05 MG] Isosorbide Mononitrate ER [Imdur] 60 mg PO DAILY tab.er.24h 01/13/19 07/05/20 Rx traMADol HCL [Ultram] 50 mg PO BID PRN 01/13/19 07/05/20 History Nitroglycerin Sl Tabs [Nitrostat] 0.4 mg PO Q5M PRN #25 tab 01/18/19 07/05/20 Rx Atorvastatin [Lipitor] 20 mg PO HS 05/09/19 07/05/20 History Isosorbide Mononitrate ER [Imdur] 90 mg PO HS 05/09/19 07/05/20 History Melatonin 10 mg PO HS 05/09/19 07/05/20 History Spironolactone [Aldactone] 25 mg PO DAILY PRN 05/09/19 07/05/20 History ALPRAZolam [Xanax] 0.25 mg PO BID PRN 09/17/19 07/05/20 History hydrALAZINE HCL [Apresoline] 100 mg PO Q8H 09/17/19 07/05/20 History Aspirin 81 mg PO DAILY chew 02/07/20 07/05/20 Rx Metoprolol Tartrate [Lopressor] 100 mg PO TID 02/27/20 07/05/20 History Gabapentin [Neurontin] 100 mg PO BID PRN 06/01/20 07/05/20 History Loperamide [Imodium] 2 mg PO DAILY PRN 06/01/20 07/05/20 History diphenhydrAMINE [Benadryl] 25 mg PO DAILY PRN 06/01/20 07/05/20 History cloNIDine HCL [Catapres] 0.2 mg PO BID #60 tab 06/02/20 07/05/20 Rx cloNIDine HCL [Catapres] 0.1 mg PO TID PRN 06/16/20 07/05/20 History Furosemide [Lasix] 20 mg PO Q48H 07/05/20 07/05/20 History Allergies Allergy/AdvReac Type Severity Reaction Status Date / Time JORGITO Inhibitors Allergy Severe Swelling Verified 07/05/20 16:10 cortisone Allergy Severe Rash/Hives, Verified 07/05/20 16:10 high BP Calcium Channel Blocking AdvReac SORES IN Verified 07/05/20 16:10 Agent Dilt MOUTH dust,trees Allergy Itching Uncoded 06/16/20 08:59 Physical Exam Vitals: Vital Signs Temp Pulse Pulse Resp BP BP Pulse Ox 07/06/20 09:00 61 16 07/06/20 07:43 98.0 F 61 16 115/66 95 07/06/20 03:00 97.6 F 73 18 118/69 98 07/05/20 23:10 97.8 F 65 18 116/65 96 07/05/20 22:57 68 18 128/79 98 07/05/20 21:23 71 18 195/93 97 07/05/20 20:51 97.9 F 70 18 135/78 97 07/05/20 18:03 60 18 125/62 98 07/05/20 15:57 60 18 129/67 07/05/20 15:03 98.2 F 84 18 142/89 94 L Intake and Output 07/05/20 07/06/20 07/06/20 22:59 06:59 14:59 Output Total 500 Balance -500 Output: Urine 500 Other: Voiding Method Toilet # Voids 3 Weight 87.997 kg 85.72 kg PHYSICAL EXAMINATION: This is a 89-year-old male in no apparent distress at the time of my examination. VITAL SIGNS: Blood pressure 115/66, heart rate 61, respirations 16, temp 98F. Patient is to 95 % on 3 L via nasal cannula. HEENT: Head is atraumatic, normocephalic. Pupils are equal, round. Sclerae anicteric. Conjunctivae are clear. Mucous membranes of the mouth are moist. Neck is supple. There is no elevated jugular venous pressure. No carotid bruit is heard. CHEST EXAMINATION: Clear to auscultation bilaterally, diminished bilateral bases. No wheezes rales or rhonchi. Respirations even and nonlabored. HEART EXAMINATION: Heart regular, positive S1 and S2. No S3. No S4. A systolic murmur. ABDOMEN: Soft, nontender. Bowel sounds are heard. No organomegaly noted. EXTREMITIES: 2+ peripheral pulses with evidence of trace left lower extremity edema and mild right lower extremity edema and no calf tenderness noted. NEUROLOGIC EXAMINATION: Patient is awake, alert and oriented x3. Results 07/05/20 15:23 07/05/20 15:23 Cardiac Enzymes 07/05/20 07/05/20 07/05/20 Range/Units 15:23 15:23 20:16 AST 38 H (14-36) U/L Lactate Dehydrogenase (313-618) U/L Troponin I <0.012 <0.012 (0.000-0.034) ng/mL 07/05/20 07/05/20 Range/Units 22:35 22:35 AST (14-36) U/L Lactate Dehydrogenase 524 (313-618) U/L Troponin I <0.012 (0.000-0.034) ng/mL Coagulation 07/05/20 Range/Units 15: PT 10.2 (9.0-12.0) sec APTT 24.5 (22.0-30.0) sec Lipids 07/05/20 Range/Units 15: Triglycerides 115 (<150) mg/dL Cholesterol 107 (<200) mg/dL HDL Cholesterol 35 L (40-60) mg/dL CBC 07/05/20 Range/Units 15:23 WBC 8.3 (3.8-10.6) k/uL RBC 4.16 (3.80-5.40) m/uL Hgb 13.1 (11.4-16.0) gm/dL Hct 40.0 (34.0-46.0) % Plt Count 222 (150-450) k/uL Comprehensive Metabolic Panel 07/05/20 Range/Units 15:23 Sodium 134 L (137-145) mmol/L Potassium 4.4 (3.5-5.1) mmol/L Chloride 103 (98-107) mmol/L Carbon Dioxide 25 (22-30) mmol/L BUN 28 H (7-17) mg/dL Creatinine 0.74 (0.52-1.04) mg/dL Glucose 186 H (74-99) mg/dL Calcium 9.4 (8.4-10.2) mg/dL AST 38 H (14-36) U/L ALT 49 H (4-34) U/L Alkaline Phosphatase 67 (38-126) U/L Total Protein 6.1 L (6.3-8.2) g/dL Albumin 3.3 L (3.5-5.0) g/dL Current Medications Generic Name Dose Route Start Last Admin Trade Name Freq PRN Reason Stop Dose Admin Albuterol Sulfate 2 puff 07/06/20 08:00 07/06/20 08:10 Albuterol Hfa Inhaler INHALATION 2 puff RT-QID DULCE Administration Alprazolam 0.25 mg 07/05/20 19:26 Alprazolam 0.25 Mg Tab PO BID PRN Anxiety Apixaban 5 mg 07/05/20 21:00 07/06/20 07:45 Apixaban 5 Mg Tab PO 5 mg BID DULCE Administration Ascorbic Acid 500 mg 07/05/20 19:26 Ascorbic Acid 500 Mg Tab PO DAILY PRN Cold Symptoms Aspirin 325 mg 07/06/20 09:00 07/06/20 07:45 Aspirin 325 Mg Tab PO 325 mg DAILY DULCE Administration Atorvastatin Calcium 20 mg 07/05/20 21:00 07/05/20 21:21 Atorvastatin 20 Mg Tab PO 20 mg HS DULCE Administration Cholecalciferol 3,000 unit 07/06/20 09:00 07/06/20 07:45 Cholecalciferol 1,000 Unit Tab PO 3,000 unit DAILY DULCE Administration Clonidine 0.2 mg 07/05/20 21:00 07/06/20 07:45 Clonidine Hcl 0.2 Mg Tab PO 0.2 mg BID DULCE Administration Diphenhydramine HCl 25 mg 07/05/20 19:26 Diphenhydramine 25 Mg Cap PO DAILY PRN Allergic Reaction Furosemide 40 mg 07/06/20 09:00 07/06/20 07:44 Furosemide 10 Mg/Ml 4 Ml Vial IV 40 mg BID DULCE Administration Gabapentin 100 mg 07/05/20 19:26 Gabapentin 100 Mg Cap PO BID PRN nerve/ leg pain Glipizide 2.5 mg 07/06/20 07:30 07/06/20 09:12 Glipizide 2.5 Mg Tab PO 2.5 mg [id number] DULCE Administration Hydralazine HCl 100 mg 07/05/20 20:00 07/06/20 05:23 Hydralazine Hcl 50 Mg Tab PO 100 mg Q8H DULCE Administration Insulin Aspart 0 unit 07/05/20 21:00 07/06/20 07:30 Insulin Aspart (Novolog) 100 Unit/Ml Vial SQ Not Given ACHS [facility] Protocol Isosorbide Mononitrate 60 mg 07/06/20 09:00 07/06/20 09:12 Isosorbide Mononitrate Er 60 Mg Tab.Er.24h PO 60 mg DAILY DULCE Administration Isosorbide Mononitrate 90 mg 07/05/20 21:00 07/05/20 21:21 Isosorbide Mononitrate Er 30 Mg Tab.Er.24h PO 90 mg HS [facility] Administration Levothyroxine Sodium 75 mcg 07/06/20 06:30 07/06/20 05:24 Levothyroxine 75 Mcg Tab PO 75 mcg DAILY@0630 [facility] Administration Loperamide HCl 2 mg 07/05/20 19:26 Loperamide 2 Mg Cap PO DAILY PRN Diarrhea Melatonin 10 mg 07/05/20 21:00 07/05/20 21:27 Melatonin 5 Mg Tablet PO 10 mg HS [facility] Administration Metoprolol Tartrate 100 mg 07/05/20 22:00 07/06/20 07:45 Metoprolol Tartrate 50 Mg Tab PO 100 mg TID [facility] Administration Nitroglycerin 0.4 mg 07/05/20 19:24 Nitroglycerin Sl Tabs 0.4 Mg Tab SUBLINGUAL Q5M PRN Chest Pain Nitroglycerin 1 inch 07/06/20 00:00 07/06/20 06:06 Nitroglycerin Oint 1 Inch/Gm Packet TOPICAL Not Given Q6HR [facility] Estradiol 0.05mg/ 1 patch 07/05/20 19:30 07/05/20 21:20 24hr Biwkptch 0.05 TOPICAL Not Given Mg/24 Hour Patch) SUWE [facility] Spironolactone 25 mg 07/05/20 19:26 Spironolactone 25 Mg Tab PO DAILY PRN Edema Tramadol HCl 50 mg 07/05/20 19:26 Tramadol 50 Mg Tab PO BID PRN Pain Intake and Output 07/05/20 07/06/20 07/06/20 22:59 06:59 14:59 Output Total 500 Balance -500 Output: Urine 500 Other: Voiding Method Toilet # Voids 3 Weight 87.997 kg 85.72 kg 07/05/20 15:23 07/05/20 15:23 EKG Interpretations (text) Atrial fibrillation with paced ventricular rhythm Assessment and Plan Assessment: #1 symptoms of worsening shortness of breath, secondary to COVID with underlying chronic congestive heart failure #2 CAD with prior stenting #3 atrial fibrillation, persistent, anticoagulated on Eliquis #4 hypertension #5 sick sinus syndrome with prior pacemaker implantation #6 hyperlipidemia #7 diabetes Plan: From cardiology's perspective, medications were reviewed and will continue the same. Appear mostly to be related to underlying COVID infection. No further cardiac workup is warranted at this time. We will follow the patient on an as- needed basis. Please do not hesitate to contact us with questions. SKEIN STRAIGHTENER note has been reviewed, I agree with a documented findings and plan of care. Patient was seen and examined.
[2020-07-06 09:48] LABS: Ferritin 65.7 ng/mL (10.0-291.0)
[2020-07-06 11:58] LABS: Glucose,Whole Blood 107 mg/dL (75-99)
--- NOTE | 2020-07-06 13:07 | P.CNPUL ---
History of Present Illness Consult date: 07/06/20 Reason for consult: pneumonia, pleural effusion Chief complaint: Shortness of breath History of present illness: This is an 89-year-old female with history of hypertension, chronic atrial fibrillation, coronary artery disease and previous stenting 2, patient follows up with a executive vice president business development out of [facility]. She called her executive vice president business development yesterday complaining of increased shortness of breath, and she is having some chest discomfort. For the last 2 weeks Patient was told to go to the ER, workup in the ER including a chest x-ray is CT of the chest, and the findings were consistent with mild congestive heart failure. Patient was also noted to have elevated BNP, PCR for ramirez virus was done and came back positive. Patient was placed on diuretics, her symptoms have been going on for the last couple of weeks. Patient was admitted, and I was asked to see her on consultation. Patient is on 2 L nasal cannula with O2 saturation anywhere between 95-98%. She seems to be hemodynamically stable. She is now in the observation unit, and seems to be doing well especially when she was given last dose of Lasix. She is now on Lasix at 40 mg IV push twice a day. Patient was seen by cardiology on consultation, and recommended no change in treatment. Patient is already on Eliquis. She is also on vitamin C, aspirin, melatonin, and she is also on Aldactone in addition to Lasix. Review of Systems Constitutional: Negative HEENT: Negative Cardiac as noted in HPI. Pulmonary: As noted in HPI. GI: Negative Genitourinary: Negative Musculoskeletal: Negative Skin: Negative Neurologic: Negative Endocrine: Negative, known history of diabetes, under control. Hematologic: Negative Past Medical History Past Medical History: Atrial Fibrillation, Coronary Artery Disease (CAD), Cancer, Chest Pain / Angina, Diabetes Mellitus, GERD/Reflux, Hyperlipidemia, Hypertension, Osteoarthritis (OA), Sleep Apnea/CPAP/BIPAP, Thyroid Disorder Additional Past Medical History / Comment(s): skin cancer, restless leg syndrome, varicose veins, IBS, History of Any Multi-Drug Resistant Organisms: None Reported Past Surgical History: Adenoidectomy, Appendectomy, Breast Surgery, Cholec ystectomy, Heart Catheterization With Stent, Hysterectomy, Orthopedic Surgery, Pacemaker, Tonsillectomy Additional Past Surgical History / Comment(s): walt cataract, 2 stents, partial thyroidectomy, rt shoulder rotator cuff, walt breast biopsy, metal clip in rt breast Past Anesthesia/Blood Transfusion Reactions: No Reported Reaction Date of Last Stent Placement:: 1998 Type of Cardiac Device: Permanent Pacemaker, Unknown Device Placement Date:: 2014 Past Psychological History: Anxiety Smoking Status: Former smoker Past Alcohol Use History: Occasional Additional Past Alcohol Use History / Comment(s): The patient was a smoker briefly as a kid. She drinks alcohol occasionally. Past Drug Use History: None Reported - Past Family History Mother Additional Family Medical History / Comment(s): Mother at age 76 from massive stroke. Brother(s) Additional Family Medical History / Comment(s): The patient had a total of 3 brothers. One brother from melanoma. One brother is with history of coronary artery disease status post CABG. One brother has from colon cancer with history of coronary artery disease. Patient does not have any sis ters. Daughter(s) Family Medical History: No Reported History (Healthy 1 daughter) Son(s) History Unknown: Yes (Healthy 3 sons) Additional Family Medical History / Comment(s): Patient has 3 sons and 1 daughter. One son has history of coronary artery disease, second son has history of AICD. Patient has 1 son and 1 daughter with no major medical problems. Father Additional Family Medical History / Comment(s): Father at age 59 from a myocardial infarction. Medications and Allergies Home Medications Medication Instructions Recorded Confirmed Type Apixaban [Eliquis] 5 mg PO BID 04/19/17 07/05/20 History Ascorbic Acid [Vitamin C] 500 mg PO DAILY PRN 04/19/17 07/05/20 History Cholecalciferol [Vitamin D3 (25 3,000 unit PO DAILY 04/19/17 07/05/20 History Mcg = 1000 Iu)] glipiZIDE XL [Glucotrol XL] 2.5 mg PO DAILY 04/19/17 07/05/20 History Levothyroxine Sodium [Synthroid] 75 mcg PO DAILY 05/26/17 07/05/20 History Estradiol 0.05MG/24Hr Biwkptch 1 patch TRANSDERM SUWE 01/13/19 07/05/20 History [Vivelle-Dot 0.05 MG] Isosorbide Mononitrate ER [Imdur] 60 mg PO DAILY tab.er.24h 01/13/19 07/05/20 Rx traMADol HCL [Ultram] 50 mg PO BID PRN 01/13/19 07/05/20 History Nitroglycerin Sl Tabs [Nitrostat] 0.4 mg PO Q5M PRN #25 tab 01/18/19 07/05/20 Rx Atorvastatin [Lipitor] 20 mg PO HS 05/09/19 07/05/20 History Isosorbide Mononitrate ER [Imdur] 90 mg PO HS 05/09/19 07/05/20 History Melatonin 10 mg PO HS 05/09/19 07/05/20 History Spironolactone [Aldactone] 25 mg PO DAILY PRN 05/09/19 07/05/20 History ALPRAZolam [Xanax] 0.25 mg PO BID PRN 09/17/19 07/05/20 History hydrALAZINE HCL [Apresoline] 100 mg PO Q8H 09/17/19 07/05/20 History Aspirin 81 mg PO DAILY chew 02/07/20 07/05/20 Rx Metoprolol Tartrate [Lopressor] 100 mg PO TID 02/27/20 07/05/20 History Gabapentin [Neurontin] 100 mg PO BID PRN 06/01/20 07/05/20 History Loperamide [Imodium] 2 mg PO DAILY PRN 06/01/20 07/05/20 History diphenhydrAMINE [Benadryl] 25 mg PO DAILY PRN 06/01/20 07/05/20 History cloNIDine HCL [Catapres] 0.2 mg PO BID #60 tab 06/02/20 07/05/20 Rx cloNIDine HCL [Catapres] 0.1 mg PO TID PRN 06/16/20 07/05/20 History Furosemide [Lasix] 20 mg PO Q48H 07/05/20 07/05/20 History Allergies Allergy/AdvReac Type Severity Reaction Status Date / Time JORGITO Inhibitors Allergy Severe Swelling Verified 07/05/20 16:10 cortisone Allergy Severe Rash/Hives, Verified 07/05/20 16:10 high BP Calcium Channel Blocking AdvReac SORES IN Verified 07/05/20 16:10 Agent Dilt MOUTH dust,trees Allergy Itching Uncoded 06/16/20 08:59 Physical Exam Vitals: Vital Signs Temp Pulse Pulse Resp BP BP Pulse Ox 07/06/20 09:00 61 16 07/06/20 07:43 98.0 F 61 16 115/66 95 07/06/20 03:00 97.6 F 73 18 118/69 98 07/05/20 23:10 97.8 F 65 18 116/65 96 07/05/20 22:57 68 18 128/79 98 07/05/20 21:23 71 18 195/93 97 07/05/20 20:51 97.9 F 70 18 135/78 97 07/05/20 18:03 60 18 125/62 98 07/05/20 15:57 60 18 129/67 07/05/20 15:03 98.2 F 84 18 142/89 94 L Intake and Output 07/05/20 07/06/20 07/06/20 22:59 06:59 14:59 Intake Total 400 Output Total 500 750 Balance -500 -350 Intake: Oral 400 Output: Urine 500 750 Other: Voiding Method Toilet # Voids 3 Weight 87.997 kg 85.72 kg Physical Exam: Revealed 89-year-old female in no distress. Head: Atraumatic, normocephalic. HEENT:[Neck is supple.] [No neck masses.] [No thyromegaly.] [No JVD.] Chest: [Symmetrical chest expansion, minimal crackles at the bases. Cardiac Exam: [Normal S1 and S2, no S3 gallop, no murmur.] Abdomen: [Obese, Soft, nontender, no megaly, no rebound, no guarding, normal bowel sounds.] Extremities: [No clubbing, right lower extremity edema, chronic, no cyanosis.] Neurological Exam: [No focal neurologic deficit.] Alert and oriented 3. Skin: No rashes. Results - Laboratory Findings CBC and BMP: 07/05/20 15:23 07/05/20 15:23 PT/INR, D-dimer PT 10.2 sec (9.0-12.0) 07/05/20 15: INR 1.0 (<1.2) 07/05/20 15:23 D-Dimer 1.07 mg/L FEU (<0.60) H 07/05/20 15:23 Abnormal lab findings: Abnormal Labs 11/07/05/20 07/05/20 15:23 15:23 15:23 Lymphocytes # 0.9 L D-Dimer 1.07 H Sodium 134 L BUN 28 H Glucose 186 H POC Glucose (mg/dL) AST 38 H ALT 49 H C-Reactive Protein Total Protein 6.1 L Albumin 3.3 L HDL Cholesterol Coronavirus (PCR) 07/05/20 07/05/20 07/05/20 15:23 20:41 21:17 Lymphocytes # D-Dimer Sodium BUN Glucose POC Glucose (mg/dL) 198 H AST ALT C-Reactive Protein Total Protein Albumin HDL Cholesterol 35 L Coronavirus (PCR) Detected A 07/05/20 07/05/20 07/06/20 22:35 23:36 06:56 Lymphocytes # D-Dimer Sodium BUN Glucose POC Glucose (mg/dL) 187 H 124 H AST ALT C-Reactive Protein 19.9 H Total Protein Albumin HDL Cholesterol Coronavirus (PCR) 07/06/20 11:57 Lymphocytes # D-Dimer Sodium BUN Glucose POC Glucose (mg/dL) 107 H AST ALT C-Reactive Protein Total Protein Albumin HDL Cholesterol Coronavirus (PCR) - Diagnostic Findings CT scan - chest: image reviewed (As noted in HPI.) Assessment and Plan Assessment: Impression: Acute hypoxic respiratory failure and shortness of breath secondary to chronic diastolic congestive heart failure and Coviv 19 infection, possible pneumonitis. History of coronary artery disease and previous stenting Chronic atrial fibrillation maintained on anticoagulation therapy History of sick sinus syndrome and previous pacemaker implantation. Type 2 diabetes. Dyslipidemia. Recommendation: Continue diuretics. Continue present supportive care measures and the cocktail for covid 19 pneumonitis, Patient does not qualify for from the severe at this point. Resume home meds as ordered. Including anticoagulation therapy. We will continue to follow. Time with Patient: Greater than 30
[2020-07-06] MEDS ORDERED: IPRATROPIUM-ALBUTEROL 3 ML NEB INHALATION PRN (14:05)
[2020-07-06] MEDS: ZINC SULFATE 220 MG CAP PO SCH (14:22)
[2020-07-06] MEDS: SENNOSIDES-DOCUSATE SODIUM 1 EACH TAB PO SCH (14:22)
--- NOTE | 2020-07-06 14:50 | P.HPIM ---
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 Cornejo with known to have history of coronary disease chronic diastolic congestive heart failure, urgent hypertension on multiple medication, hyperlipidemia and hyperglycemia. Patient has had several admissions due to hypertension and chest pain. She was last admitted at [facility] June 19 to June 22, three-day stay, for chest pain. Now coming into the emergency room secondary to difficulty of breathing, painful breathing, dry cough, denies any fever. Symptoms started yesterday. She was admitted via ambulance transport, with the above symptoms, no relief with nitroglycerin, however oxygenation with nasal cannula has helped the patient. She also has chronic left leg swelling, without any pain patient denies any history of PE in the past, In the emergency room, she was admitted for an observation for cardiac workup, COVID test was positive. Emergency room chest x-ray showed CHF changes, CTA chest did not reveal any PE, however she is chronically anticoagulated, no infiltrates pertinent for pneumonia, she has CHF changes patient also has bilateral pleural effusion. Blood pressure is 118/69, pulse ox 3 L 98%, T-max 98.2. Troponin is less than 0.012. Calcitonin 0.03, C-reactive protein 19.9, ferritin 65 normal, LDH normal 524. Consult with Dr. Sheila pearson, for Covid, cardiology for chest pain. Dr. Mensah for infectious disease. Review of Systems Constitutional: Reports as per HPI, Reports chills, Denies anorexia, Denies chronic headaches, Denies chronic pain, Denies daytime sleepiness, Denies fatigue, Denies fever, Denies lethargy, Denies malaise, Denies night sweats, Denies poor appetite, Denies sweats, Denies weakness, Denies weight gain, Denies weight loss Ears, nose, mouth and throat: Reports as per HPI Cardiovascular: Reports chest pain, Reports shortness of breath Respiratory: Reports as per HPI, Reports cough, Denies congestion, Denies cough with sputum, Denies dyspnea, Denies excessive sputum, Denies hemoptysis, Denies home oxygen, Denies pain, Denies pain on inspiration, Denies pleurisy, Denies respiratory infections, Denies sleep apnea, Denies snoring, Denies wheezing Gastrointestinal: Reports as per HPI, Denies abdominal pain, Denies belching, Denies bloating, Denies BRBPR, Denies change in bowel habits, Denies coffee ground emesis, Denies constipation, Denies diarrhea, Denies dyspepsia, Denies early satiety, Denies excessive gas, Denies heartburn, Denies hematemesis, Denies hematochezia, Denies indigestion, Denies jaundice, Denies lactose intolerance, Denies loss of appetite, Denies melena, Denies nausea, Denies vomiting Genitourinary: Reports as per HPI, Denies abnormal vaginal bleeding, Denies decr eased libido, Denies difficulty conceiving, Denies difficulty voiding, Denies dysmenorrhea, Denies dyspareunia, Denies dysuria, Denies flank pain, Denies genital sores, Denies hematuria, Denies hot flashes, Denies incomplete emptying, Denies kidney stones, Denies menorrhagia, Denies mixed incontinence, Denies nocturia, Denies pelvic pain, Denies post void dribbling, Denies , Denies prolapse symptoms, Denies stress incontinence, Denies urge incontinence, Denies urgency, Denies urinary frequency, Denies vaginal discharge, Denies vaginal dryness, Denies vaginal itching, Denies vaginal odor Menstruation: Reports as per HPI Musculoskeletal: Reports as per HPI, Denies arm numbness/tingling, Denies atrophy, Denies fractures, Denies frequent falls, Denies gait dysfunction, Denies hot joints, Denies leg numbness/tingling, Denies limitation of motion, Denies loss of height, Denies low back pain, Denies morning stiffness, Denies muscle cramps, Denies muscle weakness, Denies myalgias, Denies neck pain, Denies neck stiffness, Denies prior amputations, Denies redness of joints, Denies shooting arm pain, Denies shooting leg pain Integumentary: Reports as per HPI Neurological: Reports as per HPI, Denies aphasia, Denies ataxia, Denies balance difficulties, Denies burning pain, Denies change in mentation, Denies change in smell/taste, Denies change in speech, Denies confusion, Denies convulsions, Denies double vision, Denies gait dysfunction, Denies head injury, Denies headaches, Denies hearing difficulties, Denies lack of coordination, Denies loss of vision, Denies memory loss, Denies migraines, Denies motor disturbance, Denies numbness, Denies paralysis, Denies paresthesias, Denies seizures, Denies sensory deficit, Denies spasticity, Denies syncope, Denies tic, Denies tingling, Denies transient paralysis, Denies tremors, Denies vertigo, Denies weakness, Denies visual changes Psychiatric: Reports as per HPI, Denies anhedonia, Denies anxiety, Denies a nxiety attacks, Denies change in appetite, Denies change in libido, Denies change in sleep habits, Denies confusion, Denies depression, Denies difficulty concentrating, Denies disorientation, Denies hallucinations, Denies hopelessness, Denies hypersomnia, Denies insomnia, Denies irritability, Denies memory loss, Denies mood swings, Denies paranoia, Denies sadness/tearfulness, Denies sleep disturbances, Denies suicidal ideation Endocrine: Reports as per HPI, Denies cold intolerance, Denies deepening of the voice, Denies excessive sweating, Denies excessive thirst, Denies fatigue, Denies flushing, Denies heat intolerance, Denies high blood sugars, Denies increase in ring/shoe/hat size, Denies low blood sugars, Denies nocturia, Denies palpitations, Denies polydipsia, Denies polyphagia, Denies polyuria, Denies proptosis, Denies recent glucocorticoid use, Denies thyroid mass, Denies weight change Hematologic/Lymphatic: Reports as per HPI, Denies easy bleeding, Denies easy bruising, Denies lymphadenopathy, Denies lymphedema, Denies thrombophilia Allergic/Immunologic: Reports as per HPI, Denies allergic rhinitis, Denies anaphylaxis, Denies angioedema, Denies gluten intolerance, Denies persistent infections, Denies seasonal allergies, Denies urticaria, Denies wheezing Past Medical History Past Medical History: Atrial Fibrillation, Coronary Artery Disease (CAD), Cancer, Chest Pain / Angina, Diabetes Mellitus, GERD/Reflux, Hyperlipidemia, Hypertension, Osteoarthritis (OA), Sleep Apnea/CPAP/BIPAP, Thyroid Disorder Additional Past Medical History / Comment(s): skin cancer, restless leg syndrome, varicose veins, IBS, History of Any Multi-Drug Resistant Organisms: None Reported Past Surgical History: Adenoidectomy, Appendectomy, Breast Surgery, Cholecystectomy, Heart Catheterization With Stent, Hysterectomy, Orthopedic Surgery, Pacemaker, Tonsillectomy Additional Past Surgical History / Comment(s): walt cataract, 2 stents, partial thyroidectomy, rt shoulder rotator cuff, walt breast biopsy, metal clip in rt breast Past Anesthesia/Blood Transfusion Reactions: No Reported Reaction Date of Last Stent Placement:: 1998 Type of Cardiac Device: Permanent Pacemaker, Unknown Device Placement Date:: 2014 Past Psychological History: Anxiety Smoking Status: Former smoker Past Alcohol Use History: Occasional Additional Past Alcohol Use History / Comment(s): The patient was a smoker briefly as a kid. She drinks alcohol occasionally. Past Drug Use History: None Reported - Past Family History Mother Additional Family Medical History / Comment(s): Mother at age 76 from massive stroke. Brother(s) Additional Family Medical History / Comment(s): The patient had a total of 3 brothers. One brother from melanoma. One brother is with history of coronary artery disease status post CABG. One brother has from colon cancer with history of coronary artery disease. Patient does not have any sisters. Daughter(s) Family Medical History: No Reported History (Healthy 1 daughter) Son(s) History Unknown: Yes (Healthy 3 sons) Additional Family Medical History / Comment(s): Patient has 3 sons and 1 daughter. One son has history of coronary artery disease, second son has history of AICD. Patient has 1 son and 1 daughter with no major medical problems. Father Additional Family Medical History / Comment(s): Father at age 59 from a myocardial infarction. Medications and Allergies Home Medications Medication Instructions Recorded Confirmed Type Apixaban [Eliquis] 5 mg PO BID 04/19/17 07/05/20 History Ascorbic Acid [Vitamin C] 500 mg PO DAILY PRN 04/19/17 07/05/20 History Cholecalciferol [Vitamin D3 (25 3,000 unit PO DAILY 04/19/17 07/05/20 History Mcg = 1000 Iu)] glipiZIDE XL [Glucotrol XL] 2.5 mg PO DAILY 04/19/17 07/05/20 History Levothyroxine Sodium [Synthroid] 75 mcg PO DAILY 05/26/17 07/05/20 History Estradiol 0.05MG/24Hr Biwkptch 1 patch TRANSDERM SUWE 01/13/19 07/05/20 History [Vivelle-Dot 0.05 MG] Isosorbide Mononitrate ER [Imdur] 60 mg PO DAILY tab.er.24h 01/13/19 07/05/20 Rx traMADol HCL [Ultram] 50 mg PO BID PRN 01/13/19 07/05/20 History Nitroglycerin Sl Tabs [Nitrostat] 0.4 mg PO Q5M PRN #25 tab 01/18/19 07/05/20 Rx Atorvastatin [Lipitor] 20 mg PO HS 05/09/19 07/05/20 History Isosorbide Mononitrate ER [Imdur] 90 mg PO HS 05/09/19 07/05/20 History Melatonin 10 mg PO HS 05/09/19 07/05/20 History Spironolactone [Aldactone] 25 mg PO DAILY PRN 05/09/19 07/05/20 History ALPRAZolam [Xanax] 0.25 mg PO BID PRN 09/17/19 07/05/20 History hydrALAZINE HCL [Apresoline] 100 mg PO Q8H 09/17/19 07/05/20 History Aspirin 81 mg PO DAILY chew 02/07/20 07/05/20 Rx Metoprolol Tartrate [Lopressor] 100 mg PO TID 02/27/20 07/05/20 History Gabapentin [Neurontin] 100 mg PO BID PRN 06/01/20 07/05/20 History Loperamide [Imodium] 2 mg PO DAILY PRN 06/01/20 07/05/20 History diphenhydrAMINE [Benadryl] 25 mg PO DAILY PRN 06/01/20 07/05/20 History cloNIDine HCL [Catapres] 0.2 mg PO BID #60 tab 06/02/20 07/05/20 Rx cloNIDine HCL [Catapres] 0.1 mg PO TID PRN 06/16/20 07/05/20 History Furosemide [Lasix] 20 mg PO Q48H 07/05/20 07/05/20 History Allergies Allergy/AdvReac Type Severity Reaction Status Date / Time JORGITO Inhibitors Allergy Severe Swelling Verified 07/05/20 16:10 cortisone Allergy Severe Rash/Hives, Verified 07/05/20 16:10 high BP Calcium Channel Blocking AdvReac SORES IN Verified 07/05/20 16:10 Agent Dilt MOUTH dust,trees Allergy Itching Uncoded 06/16/20 08:59 Physical Exam Vitals: Vital Signs Temp Pulse Pulse Resp BP BP Pulse Ox 07/06/20 09:00 61 16 07/06/20 07:43 98.0 F 61 16 115/66 95 07/06/20 03:00 97.6 F 73 18 118/69 98 07/05/20 23:10 97.8 F 65 18 116/65 96 07/05/20 22:57 68 18 128/79 98 07/05/20 21:23 71 18 195/93 97 07/05/20 20:51 97.9 F 70 18 135/78 97 07/05/20 18:03 60 18 125/62 98 07/05/20 15:57 60 18 129/67 07/05/20 15:03 98.2 F 84 18 142/89 94 L Intake and Output 07/05/20 07/06/20 07/06/20 22:59 06:59 14:59 Intake Total 400 Output Total 500 300 Balance -500 100 Intake: Oral 400 Output: Urine 500 300 Other: Voiding Method Toilet # Voids 3 Weight 87.997 kg 85.72 kg - Constitutional General appearance: cooperative, no acute distress, obese - EENT Eyes: EOMI, PERRLA, normal appearance ENT: NA/AT - Respiratory Respiratory: bilateral: CTA, negative: diminished, dullness, rales - Cardiovascular Rhythm: regular Heart sounds: normal: S1, S2 Abnormal Heart Sounds: no systolic murmur, no diastolic murmur, no rub, no S3 Gallop, no S4 Gallop, no click, no other - Gastrointestinal General gastrointestinal: normal bowel sounds, soft - Integumentary Integumentary: decreased turgor, normal - Musculoskeletal Musculoskeletal: gait normal, generalized weakness - Psychiatric Psychiatric: A&O x's 3, appropriate affect, intact judgment & insight Results CBC & Chem 7: 07/05/20 15:23 07/05/20 15:23 Labs: Abnormal Lab Results - Last 24 Hours (Table) 07/05/20 07/05/20 07/05/20 Range/Units 15:23 15:23 15:23 Lymphocytes # 0.9 L (1.0-4.8) k/uL D-Dimer 1.07 H (<0.60) mg/L FEU Sodium 134 L (137-145) mmol/L BUN 28 H (7-17) mg/dL Glucose 186 H (74-99) mg/dL POC Glucose (mg/dL) (75-99) mg/dL AST 38 H (14-36) U/L ALT 49 H (4-34) U/L C-Reactive Protein (<10.0) mg/L Total Protein 6.1 L (6.3-8.2) g/dL Albumin 3.3 L (3.5-5.0) g/dL HDL Cholesterol (40-60) mg/dL Coronavirus (PCR) (Not Detectd) 07/05/20 07/05/20 07/05/20 Range/Units 15:23 20:41 21:17 Lymphocytes # (1.0-4.8) k/uL D-Dimer (<0.60) mg/L FEU Sodium (137-145) mmol/L BUN (7-17) mg/dL Glucose (74-99) mg/dL POC Glucose (mg/dL) 198 H (75-99) mg/dL AST (14-36) U/L ALT (4-34) U/L C-Reactive Protein (<10.0) mg/L Total Protein (6.3-8.2) g/dL Albumin (3.5-5.0) g/dL HDL Cholesterol 35 L (40-60) mg/dL Coronavirus (PCR) Detected A (Not Detectd) 07/05/20 07/05/20 07/06/20 Range/Units 22:35 23:36 06:56 Lymphocytes # (1.0-4.8) k/uL D-Dimer (<0.60) mg/L FEU Sodium (137-145) mmol/L BUN (7-17) mg/dL Glucose (74-99) mg/dL POC Glucose (mg/dL) 187 H 124 H (75-99) mg/dL AST (14-36) U/L ALT (4-34) U/L C-Reactive Protein 19.9 H (<10.0) mg/L Total Protein (6.3-8.2) g/dL Albumin (3.5-5.0) g/dL HDL Cholesterol (40-60) mg/dL Coronavirus (PCR) (Not Detectd) Laboratory Results WBC 8.3 k/uL (3.8-10.6) 07/05/20 15: RBC 4.16 m/uL (3.80-5.40) 07/05/20 15: Hgb 13.1 gm/dL (11.4-16.0) 07/05/20 15: Hct 40.0 % (34.0-46.0) 07/05/20 15: MCV 96.0 fL (80.0-100.0) 07/05/20 15: MCH 31.5 pg (25.0-35.0) 07/05/20 15: MCHC 32.8 g/dL (31.0-37.0) 07/05/20 15: RDW 13.4 % (11.5-15.5) 07/05/20 15: Plt Count 222 k/uL (150-450) 07/05/20 15: MPV 7.4 07/05/20 15: Neutrophils % 76 % 07/05/20 15: Lymphocytes % 11 % 07/05/20 15: Monocytes % 9 % 07/05/20 15: Eosinophils % 2 % 07/05/20 15: Basophils % 1 % 07/05/20 15: Neutrophils # 6.3 k/uL (1.3-7.7) 07/05/20 15: Lymphocytes # 0.9 k/uL (1.0-4.8) L 07/05/20 15: Monocytes # 0.7 k/uL (0-1.0) 07/05/20: Eosinophils # 0.2 k/uL (0-0.7) 07/05/20: Basophils # 0.0 k/uL (0-0.2) 07/05/20 15: ESR 8 mm/hr (0-20) 07/05/20 22:35 PT 10.2 sec (9.0-12.0) 07/05/20 15: INR 1.0 (<1.2) 07/05/20 15: APTT 24.5 sec (22.0-30.0) 07/05/20 15:23 D-Dimer 1.07 mg/L FEU (<0.60) H 07/05/20 15:23 Sodium 134 mmol/L (137-145) L 07/05/20 15:23 Potassium 4.4 mmol/L (3.5-5.1) 07/05/20 15:23 Chloride 103 mmol/L (98-107) 07/05/20 15:23 Carbon Dioxide 25 mmol/L (22-30) 07/05/20 15:23 Anion Gap 6 mmol/L 07/05/20 15:23 BUN 28 mg/dL (7-17) H 07/05/20 15:23 Creatinine 0.74 mg/dL (0.52-1.04) 07/05/20 15:23 Est GFR (CKD-EPI)AfAm 84 (>60 ml/min/1.73 sqM) 07/05/20 15:23 Est GFR (CKD-EPI)NonAf 73 (>60 ml/min/1.73 sqM) 07/05/20 15:23 Glucose 186 mg/dL (74-99) H 07/05/20 15:23 POC Glucose (mg/dL) 107 mg/dL (75-99) H 07/06/20 11:57 POC Glu Water Use Inspector ID Rebeca Oerllana 07/06/20 11:57 Calcium 9.4 mg/dL (8.4-10.2) 07/05/20 15:23 Magnesium 1.9 mg/dL (1.6-2.3) 07/05/20 15:23 Ferritin 65.7 ng/mL (10.0-291.0) 07/05/20 22:35 Total Bilirubin 0.8 mg/dL (0.2-1.3) 07/05/20 15:23 AST 38 U/L (14-36) H 07/05/20 15:23 ALT 49 U/L (4-34) H 07/05/20 15:23 Alkaline Phosphatase 67 U/L (38-126) 07/05/20 15:23 Lactate Dehydrogenase 524 U/L (313-618) 07/05/20 22:35 Creatine Kinase 112 U/L (30-135) 07/05/20 15:23 Troponin I <0.012 ng/mL (0.000-0.034) 07/05/20 22:35 C-Reactive Protein 19.9 mg/L (<10.0) H 07/05/20 22:35 NT-Pro-B Natriuret Pep 3190 pg/mL 07/05/20 15:23 Total Protein 6.1 g/dL (6.3-8.2) L 07/05/20 15:23 Albumin 3.3 g/dL (3.5-5.0) L 07/05/20 15:23 Triglycerides 115 mg/dL (<150) 07/05/20 15: Cholesterol 107 mg/dL (<200) 07/05/20 15: LDL Cholesterol, Calc 49 mg/dL (0-99) 07/05/20 15: HDL Cholesterol 35 mg/dL (40-60) L 07/05/20 15:23 Procalcitonin 0.03 ng/mL (0.02-0.09) 07/05/20 22:35 Coronavirus (PCR) Detected (Not Detectd) A 07/05/20 20:41 Thrombosis Risk Factor Assmnt - Choose All That Apply Any of the Below Risk Factors Present?: No Each Risk Factor Represents 3 Points: Age 75 years or older Thrombosis Risk Factor Assessment Total Risk Factor Score: 3 Thrombosis Risk Factor Assessment Level: Moderate Risk Assessment and Plan Plan: 1. [place] Infection with difficulty of breathing and pleurisy, no evidence of pneumonia, cytokine markers are still unremarkable, start on when necessary nebulized solution, O2 supplementation as given now, zinc, and vitamin C her lowest pulse oximetry was 94% on 2 L nasal cannula, from the emergency room. Start on dexamethasone 6 mg every 12 hours, and monitor for markers. Consulted infectious disease and Dr. Castaneda. Not yet started on Remdesivir, monitor for progression of pneumonia or hypoxemia 2. Chest pain most likely secondary to call with however patient has pre- existing cardiovascular issues, monitor for troponin, cardiology has been consulted patient is on isosorbide 60 mg a.m. and 90 mg at bedtime metoprolol 100 mg 3 times a day Nitrol paste every 6 hours 3. Pleural effusion with CHF, symptomatic, acute diastolic exacerbation, start on IV Lasix 40 mg twice a day, potassium supplementation and Aldactone 4uncontrolled hypertension. Continue Catapres 0.1 mg 3 times daily, Lasix 40 mg iv bid Imdur 90 mg at bedtime 60 mg a.m. Lopressor 100 mg 3 times daily. 3. Paroxysmal atrial fibrillation. Continue metoprolol 100 mg 3 times a day and still on anticoagulation with Eliquis 5 mg twice a day. 4 type 2 diabetes: Continue glipizide 2.5 mg daily and Accu-Chek sliding scale coverage. 5 hypothyroidism: Continue patient on levothyroxine 75 g daily. 6 hyperlipidemia: Remain on Lipitor 20 mg a day. 7 constipation on probiotic along with Imodium on an as-needed basis no diarrhea lately. Tesha-Colace daily 8 chronic diabetic neuropathy: Remain on gabapentin 100 mg twice a day. 9 GI prophylaxis: Continue patient on pantoprazole 40 mg a day. 10 DVT prophylaxis. Long-term Ahlquisteliquis CODE STATUS: DO NOT RESUSCITATE. DISCHARGE PLAN HOME
[2020-07-06 16:20] LABS: Glucose,Whole Blood 91 mg/dL (75-99)
[2020-07-06] MEDS ORDERED: GABAPENTIN 100 MG CAP PO SCH (21:00)
[2020-07-06 22:43] LABS: Glucose,Whole Blood 143 mg/dL (75-99)
[2020-07-06] MEDS: DEXAMETHASONE SOD PHOSPHATE 10 MG/ML 1 ML VIAL IV SCH (23:03)
[2020-07-06] MEDS: ATORVASTATIN 20 MG TAB PO SCH (23:05)
[2020-07-06] MEDS: MELATONIN 5 MG TABLET PO SCH (23:05)
[2020-07-06] MEDS: ISOSORBIDE MONONITRATE ER 30 MG TAB.ER.24H PO SCH (23:05)
[2020-07-07] MEDS: NITROGLYCERIN OINT 1 INCH/GM PACKET TOPICAL SCH ×3 (00:08→12:08)
[2020-07-07] MEDS: LEVOTHYROXINE 75 MCG TAB PO SCH (05:25)
[2020-07-07] MEDS: hydrALAZINE HCL 50 MG TAB PO SCH ×2 (05:25→12:07)
[2020-07-07 05:33] LABS: Glucose,Whole Blood 211 mg/dL (75-99)
--- NOTE | 2020-07-07 07:46 | CONS ---
CONSULTATION DATE OF SERVICE: 07/06/2020 REASON FOR CONSULTATION: COVID-19 infection. HISTORY OF PRESENT ILLNESS: The patient is an 89-year-old female presenting to the ER at [facility] yesterday for evaluation of increasing shortness of breath and chest pain. The patient's pain started around 11:30 on the morning of presentation to the hospital and has been almost 5 out of 10 in severity. The patient did take some nitroglycerin, the second with some help. The patient denies having any cough or sputum production. No URI symptoms. No nausea, no vomiting. No abdominal pain or any diarrhea. On arrival to the ER, the patient was afebrile. The patient did have a normal white count, slight lymphopenia. D-dimer was mildly elevated. The patient did have a normal creatinine. Liver enzymes also mildly elevated. CRP 19.9. Did have elevated NT proBNP. Castillo PCR came back positive in this patient who did have a chest x-ray which was suggestive of CHF exacerbation. The patient also had a CT angiogram of the chest that was negative for PE, did show bilateral pleural effusion and mild cardiomegaly consistent with congestive heart failure, mild aneurysm of the ascending aorta. The patient was admitted to the hospital. The patient had been started on Eliquis, which the patient had been taking before, dexamethasone, NovoLog, Imdur, Nitrostat and zinc sulfate. Infectious Disease was consulted with concern for positive COVID testing. REVIEW OF SYSTEMS: Positive points have been mentioned in HPI. Rest of systems are negative. PAST MEDICAL HISTORY: Atrial fibrillation, coronary artery disease, diabetes mellitus, gastroesophageal reflux disease, hypertension, hyperlipidemia, osteoarthritis, sleep apnea, hypothyroidism. PAST SURGICAL HISTORY: Adenoidectomy, appendectomy, breast surgery, cholecystectomy, heart catheterization with stent, hysterectomy, pacemaker placement, tonsillectomy. SOCIAL HISTORY: Remote history of smoking. Occasionally drinks. No drug use. FAMILY HISTORY: Father age of 76 from massive stroke. ALLERGIES: JORGITO INHIBITOR, CORTISONE, CALCIUM CHANNEL BLOCKERS. MEDICATIONS: Medications include the patient is currently on zinc sulfate, Ultram, Aldactone, Senokot, Estradiol, Nitrostat, Lopressor, melatonin, Synthroid, Imdur, NovoLog, hydralazine, Glucotrol, Lasix, Benadryl, Decadron, Catapres, Lipitor, aspirin, Eliquis and Xanax. PHYSICAL EXAMINATION: Blood pressure 106/59 with a pulse of 63, temperature 98.3. No fever has been recorded since admission. She is 95% on 3 L nasal cannula. General description is an elderly female up in the bed in no distress. No tachypnea or accessory muscle of respiration use. HEENT: Examination shows no pallor or scleral icterus. Oral mucous membrane is dry. No pharyngeal erythema or thrush. NECK: Trachea central. No thyromegaly. LUNGS: Unlabored breathing, decreased breath sounds in the bases. No wheeze or crackle. HEART: S1, S2. Regular rate and rhythm. ABDOMEN: Soft, no tenderness. EXTREMITIES: No edema of feet. SKIN EXAMINATION: No rash or mass palpable. NEUROLOGICAL: Patient is awake, alert, oriented x3. Mood and affect normal. LABS: Hemoglobin 13.1, white count 8.3, BUN of 28, creatinine 0.74. Electrolytes have been normal. Liver enzymes mildly elevated. CRP is only 19.9. DIAGNOSTIC IMPRESSION: Patient presented to the hospital with chest pain and some shortness of breath. This patient did not have any fever or cough, more likely cardiac related. The patient did have a positive Castillo PCR, however, did not have significant inflammatory marker elevation and CT angiogram of the chest did not show any ground-glass opacities pneumonia for COVID-19 infection. PLAN: 1. The patient to continue with , dexamethasone, zinc sulfate. 2. Manage underlying cardiac condition per admitting and Cardiology team. 3. We will follow on her clinical condition and further adjust medication if needed. Thank you for this consultation. Will follow this patient along with you. MMODL / IJN: [id number] /
[2020-07-07] MEDS: CHOLECALCIFEROL 1,000 UNIT TAB PO SCH (08:47)
[2020-07-07] MEDS: APIXABAN 5 MG TAB PO SCH (08:47)
[2020-07-07] MEDS: SENNOSIDES-DOCUSATE SODIUM 1 EACH TAB PO SCH (08:47)
[2020-07-07] MEDS: METOPROLOL TARTRATE 50 MG TAB PO SCH ×2 (08:47→15:07)
[2020-07-07] MEDS: INSULIN ASPART (NovoLOG) 100 UNIT/ML VIAL SQ SCH ×2 (08:48→12:08)
[2020-07-07] MEDS: ZINC SULFATE 220 MG CAP PO SCH (08:48)
[2020-07-07] MEDS: ASPIRIN 325 MG TAB PO SCH (08:48)
[2020-07-07] MEDS: FUROSEMIDE 10 MG/ML 4 ML VIAL IV SCH (08:49)
[2020-07-07] MEDS: cloNIDine HCL 0.2 MG TAB PO SCH (08:56)
[2020-07-07] MEDS: DEXAMETHASONE SOD PHOSPHATE 10 MG/ML 1 ML VIAL IV SCH (08:56)
--- NOTE | 2020-07-07 10:31 | P.PN ---
Subjective Progress Note Date: 07/07/20 Principal diagnosis: COVID 19 pneumonitis This is an 89-year-old female with history of hypertension, chronic atrial fibrillation, coronary artery disease and previous stenting 2, patient follows up with a paint process engineer out of . She called her paint process engineer yesterday complaining of increased shortness of breath, and she is having some chest discomfort. For the last 2 weeks Patient was told to go to the ER, workup in the ER including a chest x-ray is CT of the chest, and the findings were consistent with mild congestive heart failure. Patient was also noted to have elevated BNP, PCR for ramirez virus was done and came back positive. Patient was placed on diuretics, her symptoms have been going on for the last couple of weeks. Patient was admitted, and I was asked to see her on consultation. Patient is on 2 L nasal cannula with O2 saturation anywhere between 95-98%. She seems to be hemodynamically stable. She is now in the observation unit, and seems to be doing well especially when she was given last dose of Lasix. She is now on Lasix at 40 mg IV push twice a day. Patient was seen by cardiology on consultation, and recommended no change in treatment. Patient is already on Eliquis. She is also on vitamin C, aspirin, melatonin, and she is also on Aldactone in addition to Lasix. On 07/07/2020 patient seen in follow-up in the observation unit, she is awake and alert, in no acute distress, she is breathing comfortably, she is on 3 L of oxygen pulse ox of 97%, she has been ambulating to the bathroom, tolerating activity well, denies any chest pain, denies any palpitations, vital signs have been stable, she's been afebrile. Chest x-ray is pending, she has been on diuretics with Lasix 40 mg twice daily, in -1.8 L fluid balance over the last 24 hours, he remains on IV Decadron 6 mg daily, occasional cough, denies any abdominal pain, nausea or diarrhea. Procalcitonin level was negative at 0.03. No acute events overnight. Objective - Vital Signs Vital signs: Vital Signs Temp 97.6 F 07/07/20 08:45 Pulse 67 07/07/20 08:45 Resp 20 07/07/20 08:45 BP 121/75 07/07/20 08:45 Pulse Ox 97 07/07/20 08:45 Intake & Output 07/06/20 07/07/20 07/07/20 18:59 06:59 18:59 Intake Total 624 Output Total 750 1700 Balance -126 -1700 Weight 85 kg Intake: Oral 624 Output: Urine 750 1700 Other: Voiding Method Toilet # Voids 3 - Exam GENERAL EXAM: Alert, very pleasant 89-year-old white female, 3 L of oxygen with a pulse ox of 97% comfortable in no apparent distress. HEAD: Normocephalic/atraumatic. EYES: Normal reaction of pupils, equal size. Conjunctiva pink, sclera white. NOSE: Clear with pink turbinates. THROAT: No erythema or exudates. NECK: No masses, no JVD, no thyroid enlargement, no adenopathy. CHEST: No chest wall deformity. Symmetrical expansion. LUNGS: Equal air entry with no crackles, wheeze, rhonchi or dullness. CVS: Regular rate and rhythm, normal S1 and S2, no gallops, no murmurs, no rubs ABDOMEN: Soft, nontender. No hepatosplenomegaly, normal bowel sounds, no guarding or rigidity. EXTREMITIES: No clubbing, no edema, no cyanosis, 2+ pulses and upper and lower extremities. MUSCULOSKELETAL: Muscle strength and tone normal. SPINE: No scoliosis or deformity SKIN: No rashes CENTRAL NERVOUS SYSTEM: Alert and oriented -3. No focal deficits, tone is normal in all 4 extremities. PSYCHIATRIC: Alert and oriented -3. Appropriate affect. Intact judgment and insight. - Labs CBC & Chem 7: 07/05/20 15:23 07/05/20 15:23 Labs: Abnormal Lab Results - Last 24 Hours (Table) 07/06/20 07/06/20 07/07/20 Range/Units 11:57 22:37 05:21 POC Glucose (mg/dL) 107 H 143 H 211 H (75-99) mg/dL Assessment and Plan Plan: Assessment: Acute hypoxic respiratory failure and shortness of breath secondary to chronic diastolic congestive heart failure and Coviv 19 infection, possible pneumonitis. History of coronary artery disease and previous stenting Chronic atrial fibrillation maintained on anticoagulation therapy History of sick sinus syndrome and previous pacemaker implantation. Type 2 diabetes. Dyslipidemia. Plan: Vital signs have been stable, wean FiO2, today's chest x-ray shows stable findings of mild central vascular congestion and tiny bilateral pleural effusions. No worsening dyspnea, no fever, obtain repeat rapid COVID 19 test, can be considered for discharge home today I performed a history & physical examination of the patient and discussed their management with my nurse practitioner, Jane Zurita. I reviewed the nurse practitioner's note and agree with the documented findings and plan of care. Lung sounds are positive for diminished breath sounds. The findings and the impression was discussed with the patient. I attest to the documentation by the nurse practitioner. Time with Patient: Less than 30
[2020-07-07 10:44] LABS: Basophils % (A) 0 %; Eosinophils % (A) 0 %; HCT 39.8 % (34.0-46.0); HGB 13.1 gm/dL (11.4-16.0); Lymphocytes # (A) 0.6 k/uL (1.0-4.8); Lymphocytes % (A) 7 %; MCH 31.8 pg (25.0-35.0); MCV 96.6 fL (80.0-100.0); Mean Platelet Volume 7.2; Monocytes # (A) 0.2 k/uL (0-1.0); Monocytes % (A) 3 %; Neutrophils # (A) 7.3 k/uL (1.3-7.7); Neutrophils % (A) 90 %; Platelet Count 252 k/uL (150-450); RBC 4.12 m/uL (3.80-5.40); RDW 13.5 % (11.5-15.5); WBC 8.1 k/uL (3.8-10.6)
[2020-07-07 10:49] LABS: Albumin 3.3 g/dL (3.5-5.0); Calcium 9.1 mg/dL (8.4-10.2); Potassium 4.4 mmol/L (3.5-5.1)
[2020-07-07] MEDS: ALBUTEROL HFA INHALER INHALATION SCH ×3 (10:54→15:09)
[2020-07-07] MEDS: ISOSORBIDE MONONITRATE ER 60 MG TAB.ER.24H PO SCH (11:36)
[2020-07-07 11:42] LABS: Glucose,Whole Blood 144 mg/dL (75-99)
--- NOTE | 2020-07-07 11:52 | XR ---
EXAMINATION TYPE: XR chest 1V portable DATE OF EXAM: 07/07/2020 COMPARISON: 07/05/2020 INDICATION: Follow-up short of breath history of Covid TECHNIQUE: Single frontal view of the chest is obtained. FINDINGS: The heart size is normal. The pulmonary vasculature is normal. Mild infiltrate is at the right base. This is improved from comparison. Left lung infiltrate is resol rosendo. Minimal left pleural effusion is stable IMPRESSION: 1. Improving bibasilar infiltrates. 2. Small residual left pleural
[2020-07-07 15:07] VITALS: BP 106/63; PULSE 73; RESP 16; TEMP 97.8
--- NOTE | 2020-07-07 15:34 | P.DS ---
Providers Date of admission: 07/05/20 19:24 Attending physician: Jasmine Mccord Consults: 07/05/20 19:24 Consult Physician Urgent Consulting Provider: Patrica Mora Consult Reason/Comments: Chest pain, CHF Do you want consulting provider notified?: Yes 07/05/20 22:34 Consult Physician Routine Consulting Provider: Conrad Castaneda Consult Reason/Comments: covid 19 Do you want consulting provider notified?: Yes, Notify in am 07/05/20 22:35 Consult Physician Routine Consulting Provider: Aly Mensah Consult Reason/Comments: COVID 19 Do you want consulting provider notified?: Yes, Notify in am Primary care physician: [facility] Course: HISTORY OF PRESENT ILLNESS 89-year-old female one of my office patient was seen information technology intern at [facility] Dr. Cornejo with known to have history of coronary disease chronic diastolic congestive heart failure, urgent hypertension on multiple medication, hyperlipidemia and hyperglycemia. Patient has had several admissions due to hypertension and chest pain. She was last admitted at [facility] June 19 to June 22, three-day stay, for chest pain. Now coming into the emergency room secondary to difficulty of breathing, painful breathing, dry cough, denies any fever. Symptoms started yesterday. She was admitted via ambulance transport, with the above symptoms, no relief with nitroglycerin, however oxygenation with nasal cannula has helped the patient. She also has chronic left leg swelling, without any pain patient denies any history of PE in the past, In the emergency room, she was admitted for an observation for cardiac workup, COVID test was positive. Emergency room chest x-ray showed CHF changes, CTA chest did not reveal any PE, however she is chronically anticoagulated, no infiltrates pertinent for pneumonia, she has CHF changes patient also has bilateral pleural effusion. Blood pressure is 118/69, pulse ox 3 L 98%, T-max 98.2. Troponin is less than 0.012. Calcitonin 0.03, C-reactive protein 19.9, ferritin 65 normal, LDH normal 524. Consult with Dr. Sosa pulmonary, for Covid, cardiology for chest pain. Dr. Mensah for infectious disease. 07/07: Patient has received little cough, no dyspnea, no hypoxemia, patient is followed by Dr. Sosa from pulmonary and Dr. Hernandez, did not require any antiviral medication, chest x-ray shows improving infiltrates, with a stable left pleural effusion LDH is normal, creatinine 0.98, no lymphopenia, pro-Mickey 0.03, patient was cleared for discharge by pulmonary as well, patient is going to be discharged with dexamethasone taper 6 mg bid x 7 d and 6 mg d x 10 d, and inhalers albuterol prn and tessalon patient would be driven home through a wheelchair van are she does not have anybody that would pick her up, she would not want her son who was already exposed to Covid to come pick her up. Discharge pulse ox 95% on room air Review of Systems Constitutional: Reports as per HPI, Reports chills, Denies anorexia, Denies chronic headaches, Denies chronic pain, Denies daytime sleepiness, Denies fatigue, Denies fever, Denies lethargy, Denies malaise, Denies night sweats, Denies poor appetite, Denies sweats, Denies weakness, Denies weight gain, Denies weight loss Ears, nose, mouth and throat: Reports as per HPI Cardiovascular: Reports chest pain, Reports shortness of breath Respiratory: Reports as per HPI, Reports cough, Denies congestion, Denies cough with sputum, Denies dyspnea, Denies excessive sputum, Denies hemoptysis, Denies home oxygen, Denies pain, Denies pain on inspiration, Denies pleurisy, Denies respiratory infections, Denies sleep apnea, Denies snoring, Denies wheezing Gastrointestinal: Reports as per HPI, Denies abdominal pain, Denies belching, Denies bloating, Denies BRBPR, Denies change in bowel habits, Denies coffee ground emesis, Denies constipation, Denies diarrhea, Denies dyspepsia, Denies early satiety, Denies excessive gas, Denies heartburn, Denies hematemesis, Denies hematochezia, Denies indigestion, Denies jaundice, Denies lactose intolerance, Denies loss of appetite, Denies melena, Denies nausea, Denies vomiting Genitourinary: Reports as per HPI, Denies abnormal vaginal bleeding, Denies decreased libido, Denies difficulty conceiving, Denies difficulty voiding, Denies dysmenorrhea, Denies dyspareunia, Denies dysuria, Denies flank pain, Denies genital sores, Denies hematuria, Denies hot flashes, Denies incomplete emptying, Denies kidney stones, Denies menorrhagia, Denies mixed incontinence, Denies nocturia, Denies pelvic pain, Denies post void dribbling, Denies , Denies prolapse symptoms, Denies stress incontinence, Denies urge incontinence, Denies urgency, Denies urinary frequency, Denies vaginal discharge, Denies vaginal dryness, Denies vaginal itching, Denies vaginal odor Menstruation: Reports as per HPI Musculoskeletal: Reports as per HPI, Denies arm numbness/tingling, Denies atrophy, Denies fractures, Denies frequent falls, Denies gait dysfunction, Denies hot joints, Denies leg numbness/tingling, Denies limitation of motion, Denies loss of height, Denies low back pain, Denies morning stiffness, Denies muscle cramps, Denies muscle weakness, Denies myalgias, Denies neck pain, Denies neck stiffness, Denies prior amputations, Denies redness of joints, Denies shooting arm pain, Denies shooting leg pain Integumentary: Reports as per HPI Neurological: Reports as per HPI, Denies aphasia, Denies ataxia, Denies balance difficulties, Denies burning pain, Denies change in mentation, Denies change in smell/taste, Denies change in speech, Denies confusion, Denies convulsions, Denies double vision, Denies gait dysfunction, Denies head injury, Denies headaches, Denies hearing difficulties, Denies lack of coordination, Denies loss of vision, Denies memory loss, Denies migraines, Denies motor disturbance, Denies numbness, Denies paralysis, Denies paresthesias, Denies seizures, Denies sensory deficit, Denies spasticity, Denies syncope, Denies tic, Denies tingling, Denies transient paralysis, Denies tremors, Denies vertigo, Denies weakness, Denies visual changes Psychiatric: Reports as per HPI, Denies anhedonia, Denies anxiety, Denies anxiety attacks, Denies change in appetite, Denies change in libido, Denies change in sleep habits, Denies confusion, Denies depression, Denies difficulty concentrating, Denies disorientation, Denies hallucinations, Denies hopelessness, Denies hypersomnia, Denies insomnia, Denies irritability, Denies memory loss, Denies mood swings, Denies paranoia, Denies sadness/tearfulness, Denies sleep disturbances, Denies suicidal ideation Endocrine: Reports as per HPI, Denies cold intolerance, Denies deepening of the voice, Denies excessive sweating, Denies excessive thirst, Denies fatigue, Denies flushing, Denies heat intolerance, Denies high blood sugars, Denies increase in ring/shoe/hat size, Denies low blood sugars, Denies nocturia, Denies palpitations, Denies polydipsia, Denies polyphagia, Denies polyuria, Denies proptosis, Denies recent glucocorticoid use, Denies thyroid mass, Denies weight change Hematologic/Lymphatic: Reports as per HPI, Denies easy bleeding, Denies easy bruising, Denies lymphadenopathy, Denies lymphedema, Denies thrombophilia Allergic/Immunologic: Reports as per HPI, Denies allergic rhinitis, Denies anaphylaxis, Denies angioedema, Denies gluten intolerance, Denies persistent infections, Denies seasonal allergies, Denies urticaria, Denies wheezing final diagnosis 1. Covid Infection with difficulty of breathing and pleurisy, no evidence of pneumonia, cytokine markers are still unremarkable, start on when necessary nebulized solution, O2 supplementation as given now, zinc, and vitamin C her lowest pulse oximetry was 94% on 2 L nasal cannula, from the emergency room. To be discharged on dexamethasone 6 mg every 12 hours, 7 days then 1 daily 7 days and monitor for markers. Consulted infectious disease and Dr. Castaneda. did not require Remdesivir, monitor for progression of pneumonia or hypoxemia discharge pulse ox 95% on room air 2. Chest pain most likely secondary to covid however patient has pre-existing cardiovascular issues, monitor for troponin, cardiology has been consulted patient is on isosorbide 60 mg a.m. and 90 mg at bedtime metoprolol 100 mg 3 times a day Nitrol paste every 6 hours 3. Pleural effusion with CHF, symptomatic, acute diastolic exacerbation, start on IV Lasix 40 mg twice a day, potassium supplementation and Aldactone 4uncontrolled hypertension. Continue Catapres 0.1 mg 3 times daily, Lasix 40 mg iv bid Imdur 90 mg at bedtime 60 mg a.m. Lopressor 100 mg 3 times daily. 3. Paroxysmal atrial fibrillation. Continue metoprolol 100 mg 3 times a day and still on anticoagulation with Eliquis 5 mg twice a day. 4 type 2 diabetes: Continue glipizide 2.5 mg daily and Accu-Chek sliding scale coverage. 5 hypothyroidism: Continue patient on levothyroxine 75 g daily. 6 hyperlipidemia: Remain on Lipitor 20 mg a day. 7 constipation on probiotic along with Imodium on an as-needed basis no diarrhea lately. Tesha-Colace daily 8 chronic diabetic neuropathy: Remain on gabapentin 100 mg twice a day. 9 GI prophylaxis: Continue patient on pantoprazole 40 mg a day. 10 DVT prophylaxis. Long-term Ahlquisteliquis CODE STATUS: DO NOT RESUSCITATE. Follow-up visit with Adrián French visit in 3-5 days follow-up with Dr. Castaneda pulmonary in 1-2 weeks Patient Condition at Discharge: Fair Plan - Discharge Summary New Discharge Prescriptions: New Dexamethasone 6 mg PO BID #24 tablet Zinc Sulfate [Orazinc] 220 mg PO DAILY cap Albuterol Inhaler [Ventolin Hfa Inhaler] 2 puff INHALATION RT-QID #1 puff Famotidine [Pepcid] 20 mg PO BID #60 tablet Benzonatate [Tessalon Perles] 100 mg PO TID #30 cap Continue Cholecalciferol [Vitamin D3 (25 Mcg = 1000 Iu)] 3,000 unit PO DAILY Ascorbic Acid [Vitamin C] 500 mg PO DAILY PRN PRN Reason: Cold Symptoms glipiZIDE XL [Glucotrol XL] 2.5 mg PO DAILY Apixaban [Eliquis] 5 mg PO BID Levothyroxine Sodium [Synthroid] 75 mcg PO DAILY traMADol HCL [Ultram] 50 mg PO BID PRN PRN Reason: Pain Estradiol 0.05MG/24Hr Biwkptch [Vivelle-Dot 0.05 MG] 1 patch TRANSDERM SUWE Isosorbide Mononitrate ER [Imdur] 60 mg PO DAILY tab.er.24h Nitroglycerin Sl Tabs [Nitrostat] 0.4 mg PO Q5M PRN #25 tab PRN Reason: Chest Pain Spironolactone [Aldactone] 25 mg PO DAILY PRN PRN Reason: Edema Melatonin 10 mg PO HS Atorvastatin [Lipitor] 20 mg PO HS Isosorbide Mononitrate ER [Imdur] 90 mg PO HS hydrALAZINE HCL [Apresoline] 100 mg PO Q8H ALPRAZolam [Xanax] 0.25 mg PO BID PRN PRN Reason: Anxiety Metoprolol Tartrate [Lopressor] 100 mg PO TID Loperamide [Imodium] 2 mg PO DAILY PRN PRN Reason: Diarrhea Gabapentin [Neurontin] 100 mg PO BID PRN PRN Reason: nerve/ leg pain diphenhydrAMINE [Benadryl] 25 mg PO DAILY PRN PRN Reason: Allergic Reaction cloNIDine HCL [Catapres] 0.2 mg PO BID #60 tab cloNIDine HCL [Catapres] 0.1 mg PO TID PRN PRN Reason: systolic BP >160 Furosemide [Lasix] 20 mg PO Q48H Changed Aspirin 81 mg PO BID #0 chew Discharge Medication List Apixaban [Eliquis] 5 mg PO BID 04/19/17 [History] Ascorbic Acid [Vitamin C] 500 mg PO DAILY PRN 04/19/17 [History] Cholecalciferol [Vitamin D3 (25 Mcg = 1000 Iu)] 3,000 unit PO DAILY 04/19/17 [History] glipiZIDE XL [Glucotrol XL] 2.5 mg PO DAILY 04/19/17 [History] Levothyroxine Sodium [Synthroid] 75 mcg PO DAILY 05/26/17 [History] Estradiol 0.05MG/24Hr Biwkptch [Vivelle-Dot 0.05 MG] 1 patch TRANSDERM SUWE 01/13/19 [History] Isosorbide Mononitrate ER [Imdur] 60 mg PO DAILY tab.er.24h 01/13/19 [Rx] traMADol HCL [Ultram] 50 mg PO BID PRN 01/13/19 [History] Nitroglycerin Sl Tabs [Nitrostat] 0.4 mg PO Q5M PRN #25 tab 01/18/19 [Rx] Atorvastatin [Lipitor] 20 mg PO HS 05/09/19 [History] Isosorbide Mononitrate ER [Imdur] 90 mg PO HS 05/09/19 [History] Melatonin 10 mg PO HS 05/09/19 [History] Spironolactone [Aldactone] 25 mg PO DAILY PRN 05/09/19 [History] ALPRAZolam [Xanax] 0.25 mg PO BID PRN 09/17/19 [History] hydrALAZINE HCL [Apresoline] 100 mg PO Q8H 09/17/19 [History] Metoprolol Tartrate [Lopressor] 100 mg PO TID 02/27/20 [History] Gabapentin [Neurontin] 100 mg PO BID PRN 06/01/20 [History] Loperamide [Imodium] 2 mg PO DAILY PRN 06/01/20 [History] diphenhydrAMINE [Benadryl] 25 mg PO DAILY PRN 06/01/20 [History] cloNIDine HCL [Catapres] 0.2 mg PO BID #60 tab 06/02/20 [Rx] cloNIDine HCL [Catapres] 0.1 mg PO TID PRN 06/16/20 [History] Furosemide [Lasix] 20 mg PO Q48H 07/05/20 [History] Albuterol Inhaler [Ventolin Hfa Inhaler] 2 puff INHALATION RT-QID #1 puff [Rx] Aspirin 81 mg PO BID #0 chew 07/07/20 [Rx] Benzonatate [Tessalon Perles] 100 mg PO TID #30 cap 07/07/20 [Rx] Dexamethasone 6 mg PO BID #24 tablet 07/07/20 [Rx] Famotidine [Pepcid] 20 mg PO BID #60 tablet 07/07/20 [Rx] Zinc Sulfate [Orazinc] 220 mg PO DAILY cap 07/07/20 [Rx] Follow up Appointment(s)/Referral(s): Karlo Locke MD [Primary Care Provider] - 1-2 days (Please call during office hours to make appointment) Conrad Castaneda DO [Doctor of Osteopathic Medicine] - 1 Week (Please call during office hours to make appointment) Patient Instructions/Handouts: Heart Failure (DC) Discharge Disposition: HOME SELF-CARE
--- NOTE | 2020-07-07 17:10 | PN ---
PROGRESS NOTE DATE OF SERVICE: 07/07/2020 REASON FOR FOLLOWUP: Positive COVID. INTERVAL HISTORY: Patient is currently afebrile. The patient is feeling better. She is breathing comfortably. Currently on room air. Denies any chest pain, no cough. No abdominal pain or diarrhea. PHYSICAL EXAMINATION: Blood pressure 106/63 with a pulse of 78, temperature 97.8. She is 95% on room air. General description is an elderly female, up in bed in no distress. RESPIRATORY SYSTEM: Unlabored breathing, decreased breath sounds, no wheeze. HEART: S1, S2. Regular rate and rhythm. ABDOMEN: Soft, no tenderness. LABS: BUN of 35, creatinine 0.98. DIAGNOSTIC IMPRESSION AND PLAN: Patient positive for COVID-19 in this patient which is mostly CHF. The patient with no fever or significant elevated inflammatory marker and no need for supplemental oxygen. She will continue on Eliquis, also on discharge and close outpatient followup. MMODL / IJN: [id number] /
[2020-07-07 19:19] LABS: Ferritin 71.3 ng/mL (10.0-291.0)
== END 2020-07-07 17:25 | disposition home or self-care (01) ==
LOC: EC 14:57 → 1SOBS 19:24
PROVIDERS: ADMIT Family Medicine; ATTEND Family Medicine
DX: U07.1 COVID-19 (principal); I50.33 Acute on chronic diastolic (congestive) heart failure; I11.0 Hypertensive heart disease with heart failure; E11.40 Type 2 diabetes mellitus with diabetic neuropathy, unspecified; Z79.01 Long term (current) use of anticoagulants; Z79.890 Hormone replacement therapy; Z79.82 Long term (current) use of aspirin; Z79.84 Long term (current) use of oral hypoglycemic drugs; Z79.891 Long term (current) use of opiate analgesic; Z79.899 Other long term (current) drug therapy; Z88.8 Allergy status to other drugs, medicaments and biological substances; Z91.048 Other nonmedicinal substance allergy status; R09.1 Pleurisy; R07.9 Chest pain, unspecified; E03.9 Hypothyroidism, unspecified; E78.5 Hyperlipidemia, unspecified; F41.9 Anxiety disorder, unspecified; G25.81 Restless legs syndrome; I25.110 Atherosclerotic heart disease of native coronary artery with unstable angina pectoris; I48.19 Other persistent atrial fibrillation; I49.5 Sick sinus syndrome; I71.2 Thoracic aortic aneurysm, without rupture; J96.01 Acute respiratory failure with hypoxia; Z66 Do not resuscitate; Z80.0 Family history of malignant neoplasm of digestive organs; Z80.8 Family history of malignant neoplasm of other organs or systems; Z82.3 Family history of stroke; Z82.49 Family history of ischemic heart disease and other diseases of the circulatory system; Z85.828 Personal history of other malignant neoplasm of skin; Z87.891 Personal history of nicotine dependence; Z90.710 Acquired absence of both cervix and uterus; Z95.0 Presence of cardiac pacemaker; Z95.5 Presence of coronary angioplasty implant and graft
CPT/HCPCS: 96365; 96375 ×2; 96376 ×2; 99291; 36415; 94640 ×4; 93005; 85379; 83880; 80061; 80053 ×2; 85652; 82728 ×2; 82550; 83615 ×2; 83735; 84484; 85025 ×2; 85610; 85730; 86140; 82180; 84145; 87635; 71045; 71046; 71275; G0378 ×3; U0003; J1100 ×2; J1940 ×3; J0456; Q9967

== ENCOUNTER 2020-08-02 07:15 | Emergency (ER) | payer MEDICARE ==
[2020-08-02 07:28] VITALS: RESP 18; TEMP 98.3
[2020-08-02] MEDS ORDERED: ACETAMINOPHEN TAB 500 MG TAB PO STA (07:44)
--- NOTE | 2020-08-02 08:00 | ED ---
General Adult HPI - General Chief complaint: Fall Stated complaint: Fall, head/face injury Time Seen by Provider: 08/02/20 07:30 Source: patient, family, RN notes reviewed, old records reviewed Mode of arrival: ambulatory Limitations: no limitations - History of Present Illness Initial comments: 89-year-old female presenting with multiple falls. Patient had fallen 3 times since approximately 2 AM this morning. She did hit her head twice as well as i njured her upper and low back. She's had increased multiple falls over the past several months. She is on anticoagulation. She states that she essentially wakes up falling. She does not remember standing or sitting up. She fallen out of bed twice and fallen out of her chair once. She denies any preceding symptoms. She is unaware that she is standing until she is in the process of falling. She did not lose consciousness after the fall or head injury. No associated chest pain or dyspnea. No fever. No focal numbness or weakness. No vomiting or diarrhea. - Related Data Home Medications Medication Instructions Recorded Confirmed Apixaban [Eliquis] 5 mg PO BID 04/19/17 08/02/20 Ascorbic Acid [Vitamin C] 500 mg PO DAILY PRN 04/19/17 08/02/20 Cholecalciferol [Vitamin D3 (25 3,000 unit PO DAILY 04/19/17 08/02/20 Mcg = 1000 Iu)] glipiZIDE XL [Glucotrol XL] 2.5 mg PO DAILY 04/19/17 08/02/20 Levothyroxine Sodium [Synthroid] 75 mcg PO DAILY 05/26/17 08/02/20 Estradiol 0.05MG/24Hr Biwkptch 1 patch TRANSDERM SUWE 01/13/19 08/02/20 [Vivelle-Dot 0.05 MG] traMADol HCL [Ultram] 50 mg PO BID PRN 01/13/19 08/02/20 Atorvastatin [Lipitor] 20 mg PO HS 05/09/19 08/02/20 Isosorbide Mononitrate ER [Imdur] 90 mg PO HS 05/09/19 08/02/20 Melatonin 10 mg PO HS 05/09/19 08/02/20 Spironolactone [Aldactone] 25 mg PO DAILY PRN 05/09/19 08/02/20 ALPRAZolam [Xanax] 0.25 mg PO BID PRN 09/17/19 08/02/20 hydrALAZINE HCL [Apresoline] 100 mg PO Q8H 09/17/19 08/02/20 Metoprolol Tartrate [Lopressor] 100 mg PO TID 02/27/20 08/02/20 Gabapentin [Neurontin] 100 mg PO BID PRN 06/01/20 08/02/20 Loperamide [Imodium] 2 mg PO DAILY PRN 06/01/20 08/02/20 diphenhydrAMINE [Benadryl] 25 mg PO DAILY PRN 06/01/20 08/02/20 cloNIDine HCL [Catapres] 0.1 mg PO TID PRN 06/16/20 08/02/20 Furosemide [Lasix] 20 mg PO Q48H 07/05/20 08/02/20 Albuterol Inhaler [Ventolin Hfa 2 puff INHALATION RT-QID PRN 08/02/20 08/02/20 Inhaler] Nitroglycerin Sl Tabs [Nitrostat] 0.4 mg SL Q5M PRN 08/02/20 08/02/20 Previous Rx's Medication Instructions Recorded Isosorbide Mononitrate ER [Imdur] 60 mg PO DAILY tab.er.24h 01/13/19 cloNIDine HCL [Catapres] 0.2 mg PO BID #60 tab 06/02/20 Aspirin 81 mg PO BID #0 chew 07/07/20 Famotidine [Pepcid] 20 mg PO BID #60 tablet 07/07/20 Zinc Sulfate [Orazinc] 220 mg PO DAILY cap 07/07/20 Allergies Allergy/AdvReac Type Severity Reaction Status Date / Time JORGITO Inhibitors Allergy Severe Swelling Verified 08/02/20 09:08 cortisone Allergy Severe Rash/Hives, Verified 08/02/20 09:08 high BP Calcium Channel Blocking AdvReac SORES IN Verified 08/02/20 09:08 Agent Dilt MOUTH dust,trees Allergy Itching Uncoded 08/02/20 09:08 Review of Systems ROS Statement: Those systems with pertinent positive or pertinent negative responses have been documented in the HPI. ROS Other: All systems not noted in ROS Statement are negative. Past Medical History Past Medical History: Atrial Fibrillation, Coronary Artery Disease (CAD), Cancer, Chest Pain / Angina, Diabetes Mellitus, GERD/Reflux, Hyperlipidemia, Hypertension, Osteoarthritis (OA), Sleep Apnea/CPAP/BIPAP, Thyroid Disorder Additional Past Medical History / Comment(s): skin cancer, restless leg syndrome, varicose veins, IBS, History of Any Multi-Drug Resistant Organisms: None Reported Past Surgical History: Adenoidectomy, Appendectomy, Breast Surgery, Cholecystectomy, Heart Catheterization With Stent, Hysterectomy, Orthopedic Surgery, Pacemaker, Tonsillectomy Additional Past Surgical History / Comment(s): walt cataract, 3 stents, partial thyroidectomy, rt shoulder rotator cuff, walt breast biopsy, metal clip in rt breast Past Anesthesia/Blood Transfusion Reactions: No Reported Reaction Date of Last Stent Placement:: 1998 Type of Cardiac Device: Permanent Pacemaker, Unknown Device Placement Date:: 2014 Past Psychological History: Anxiety Smoking Status: Former smoker Past Alcohol Use History: Occasional Past Drug Use History: None Reported - Past Family History Mother Additional Family Medical History / Comment(s): Mother at age 76 from massive stroke. Brother(s) Additional Family Medical History / Comment(s): The patient had a total of 3 brothers. One brother from melanoma. One brother is with history of coronary artery disease status post CABG. One brother has from colon cancer with history of coronary artery disease. Patient does not have any sisters. Daughter(s) Family Medical History: No Reported History (Healthy 1 daughter) Son(s) History Unknown: Yes (Healthy 3 sons) Additional Family Medical History / Comment(s): Patient has 3 sons and 1 daughter. One son has history of coronary artery disease, second son has history of AICD. Patient has 1 son and 1 daughter with no major medical problems. Father Additional Family Medical History / Comment(s): Father at age 59 from a myocardial infarction. General Exam Limitations: no limitations General appearance: alert, in no apparent distress Head exam: Present: normocephalic, other (Superficial abrasion, central forehead and bridge of nose. No repairable laceration.) Eye exam: Present: normal appearance, PERRL. Absent: periorbital swelling ENT exam: Present: normal exam Neck exam: Present: normal inspection, tenderness (Lower cervical, upper thoracic). Absent: meningismus Respiratory exam: Present: normal lung sounds bilaterally. Absent: respiratory distress, wheezes Cardiovascular Exam: Present: regular rate, normal rhythm GI/Abdominal exam: Present: soft. Absent: distended, tenderness, guarding Extremities exam: Present: normal inspection, normal capillary refill. Absent: pedal edema Back exam: Present: paraspinal tenderness (Lumbar tenderness, no step-off, no external signs of trauma.) Neurological exam: Present: alert, oriented X3, CN II-XII intact. Absent: motor sensory deficit Psychiatric exam: Present: normal affect, normal mood Skin exam: Present: warm, dry, intact, abrasion (Forehead and bridge and nose) Course Vital Signs 08/02/20 08/02/20 07:20 09:19 Temperature 98.3 F Pulse Rate 68 62 Respiratory 18 18 Rate Blood Pressure 122/75 139/85 O2 Sat by Pulse 97 98 Oximetry EKG Findings - EKG Comments: EKG Findings:: EKG: Paced rhythm, rate of 69, QRS duration 164, QTC 486 Medical Decision Making - Medical Decision Making 89-year-old female with several falls, minor head injury. Head CT performed, negative for intracranial hemorrhage or mass effect, CT of the cervical spine is negative for fracture subluxation. Chest x-rays negative for acute cardiopulmonary disease. X-rays of the lumbar spine negative for fracture or dislocation. Patient has a normal CBC, CMP showing a mild hyperkalemia and hyperglycemia. Otherwise normal. Negative troponin. Negative urinalysis. Patient is eager for discharge, she is offered admission for monitoring, neurology consultation. However she declines, daughter is at bedside is agreeable. They do have follow-up with neurology as an outpatient. We will monitor symptoms and return as needed. - Lab Data Result diagrams: 08/02/20 07:53 08/02/20 07:53 Lab Results 08/02/20 08/02/20 08/02/20 Range/Units 07:53 07:53 07:53 WBC 6.6 (3.8-10.6) k/uL RBC 4.62 (3.80-5.40) m/uL Hgb 14.6 (11.4-16.0) gm/dL Hct 44.4 (34.0-46.0) % MCV 96.0 (80.0-100.0) fL MCH 31.6 (25.0-35.0) pg MCHC 32.9 (31.0-37.0) g/dL RDW 13.4 (11.5-15.5) % Plt Count 199 (150-450) k/uL MPV 7.6 Neutrophils % 64 % Lymphocytes % 16 % Monocytes % 11 % Eosinophils % 4 % Basophils % 1 % Neutrophils # 4.2 (1.3-7.7) k/uL Lymphocytes # 1.1 (1.0-4.8) k/uL Monocytes # 0.7 (0-1.0) k/uL Eosinophils # 0.3 (0-0.7) k/uL Basophils # 0.1 (0-0.2) k/uL PT 9.8 (9.0-12.0) sec INR 0.9 (<1.2) APTT 24.4 (22.0-30.0) sec Sodium (137-145) mmol/L Potassium (3.5-5.1) mmol/L Chloride (98-107) mmol/L Carbon Dioxide (22-30) mmol/L Anion Gap mmol/L BUN (7-17) mg/dL Creatinine (0.52-1.04) mg/dL Est GFR (CKD-EPI)AfAm (>60 ml/min/1.73 sqM) Est GFR (CKD-EPI)NonAf (>60 ml/min/1.73 sqM) Glucose (74-99) mg/dL Calcium (8.4-10.2) mg/dL Magnesium (1.6-2.3) mg/dL Total Bilirubin (0.2-1.3) mg/dL AST (14-36) U/L ALT (4-34) U/L Alkaline Phosphatase (38-126) U/L Troponin I (0.000-0.034) ng/mL Total Protein (6.3-8.2) g/dL Albumin (3.5-5.0) g/dL Urine Color Yellow Urine Appearance Clear (Clear) Urine pH 5.5 (5.0-8.0) Ur Specific [place] 1.015 (1.001-1.035) Urine Protein Negative (Negative) Urine Glucose (UA) Negative (Negative) Urine Ketones Negative (Negative) Urine Blood Negative (Negative) Urine Nitrite Negative (Negative) Urine Bilirubin Negative (Negative) Urine Urobilinogen <2.0 (<2.0) mg/dL Ur Leukocyte Esterase Negative (Negative) 12/23/20 12/23/20 Range/Units 07:53 07:53 WBC (3.8-10.6) k/uL RBC (3.80-5.40) m/uL Hgb (11.4-16.0) gm/dL Hct (34.0-46.0) % MCV (80.0-100.0) fL MCH (25.0-35.0) pg MCHC (31.0-37.0) g/dL RDW (11.5-15.5) % Plt Count (150-450) k/uL MPV Neutrophils % % Lymphocytes % % Monocytes % % Eosinophils % % Basophils % % Neutrophils # (1.3-7.7) k/uL Lymphocytes # (1.0-4.8) k/uL Monocytes # (0-1.0) k/uL Eosinophils # (0-0.7) k/uL Basophils # (0-0.2) k/uL PT (9.0-12.0) sec INR (<1.2) APTT (22.0-30.0) sec Sodium 135 L (137-145) mmol/L Potassium 5.6 H (3.5-5.1) mmol/L Chloride 105 (98-107) mmol/L Carbon Dioxide 25 (22-30) mmol/L Anion Gap 5 mmol/L BUN 28 H (7-17) mg/dL Creatinine 0.66 (0.52-1.04) mg/dL Est GFR (CKD-EPI)AfAm >90 (>60 ml/min/1.73 sqM) Est GFR (CKD-EPI)NonAf 79 (>60 ml/min/1.73 sqM) Glucose 222 H (74-99) mg/dL Calcium 9.2 (8.4-10.2) mg/dL Magnesium 2.0 (1.6-2.3) mg/dL Total Bilirubin 0.9 (0.2-1.3) mg/dL AST 45 H (14-36) U/L ALT 40 H (4-34) U/L Alkaline Phosphatase 51 (38-126) U/L Troponin I <0.012 (0.000-0.034) ng/mL Total Protein 6.1 L (6.3-8.2) g/dL Albumin 3.3 L (3.5-5.0) g/dL Urine Color Urine Appearance (Clear) Urine pH (5.0-8.0) Ur Specific [place] (1.001-1.035) Urine Protein (Negative) Urine Glucose (UA) (Negative) Urine Ketones (Negative) Urine Blood (Negative) Urine Nitrite (Negative) Urine Bilirubin (Negative) Urine Urobilinogen (<2.0) mg/dL Ur Leukocyte Esterase (Negative) Disposition Clinical Impression: Fall, Closed head injury Disposition: HOME SELF-CARE Condition: Fair Instructions (If sedation given, give patient instructions): Fall Prevention for Older Adults (ED), Concussion (ED) Is patient prescribed a controlled substance at d/c from ED?: No Referrals: Karlo Locke MD [Primary Care Provider] - 1-2 days Davide Hair DO [STAFF PHYSICIAN] - 1-2 days Time of Disposition: 09:45
[2020-08-02 08:04] LABS: Basophils # (A) 0.1 k/uL (0-0.2); Basophils % (A) 1 %; Eosinophils # (A) 0.3 k/uL (0-0.7); Eosinophils % (A) 4 %; HCT 44.4 % (34.0-46.0); HGB 14.6 gm/dL (11.4-16.0); Lymphocytes # (A) 1.1 k/uL (1.0-4.8); Lymphocytes % (A) 16 %; MCH 31.6 pg (25.0-35.0); MCHC 32.9 g/dL (31.0-37.0); Mean Platelet Volume 7.6; Monocytes # (A) 0.7 k/uL (0-1.0); Monocytes % (A) 11 %; Neutrophils # (A) 4.2 k/uL (1.3-7.7); Neutrophils % (A) 64 %; Platelet Count 199 k/uL (150-450); RBC 4.62 m/uL (3.80-5.40); RDW 13.4 % (11.5-15.5); WBC 6.6 k/uL (3.8-10.6)
[2020-08-02 08:22] LABS: ALT 40 U/L (4-34); AST 45 U/L (14-36); African American GFR (CKD) >90 (>60 ml/min/1.73 sqM); Albumin 3.3 g/dL (3.5-5.0); Alkaline Phosphatase 51 U/L (38-126); Anion Gap 5 mmol/L; Blood Urea Nitrogen 28 mg/dL (7-17); Calcium 9.2 mg/dL (8.4-10.2); Carbon Dioxide 25 mmol/L (22-30); Chloride 105 mmol/L (98-107); Glucose 222 mg/dL (74-99); Non-African American GFR(CKD) 79 (>60 ml/min/1.73 sqM); Potassium 5.6 mmol/L (3.5-5.1); Sodium 135 mmol/L (137-145); Total Bilirubin 0.9 mg/dL (0.2-1.3); Total Protein 6.1 g/dL (6.3-8.2)
[2020-08-02 08:26] LABS: INR 0.9 (<1.2); Partial Thromboplastin Time 24.4 sec (22.0-30.0); Prothrombin Time 9.8 sec (9.0-12.0)
[2020-08-02] MEDS ORDERED: SODIUM CHLORIDE 0.9% 500 ML 500 ML IV ONE (08:41)
--- NOTE | 2020-08-02 08:46 | CT ---
EXAMINATION TYPE: CT brain cspine wo con DATE OF EXAM: 08/02/2020 COMPARISON: Prior CT brain 02/27/2020 HISTORY: multiple falls this AM, bruising to bridge of nose, cervical pain, pt on blood thinners CT DLP: 1500.3 mGycm Automated exposure control for dose reduction was used. TECHNIQUE: CT scan of the head and cervical spine are performed without contrast. FINDINGS: There is no acute intracranial hemorrhage, mass effect, or midline shift identified. The ventricles and sulci are within normal limits in size. The globes are intact and the visualized sin uses are clear. Cortical atrophy is again noted. Periventricular white matter shows patchy low attenu ation. Cervical spine is visualized in its entirety from C1 through upper thoracic levels and demonstrates n ear-anatomic alignment without evidence of acute fracture or dislocation. Anterolisthesis grade 1 C4 -5 is likely due to facet arthropathy, there is multilevel spondylosis, loss of disc height at interv ertebral levels, multilevel foraminal encroachment Prevertebral soft tissue appears within normal pryor its. The C1-C2 articulation is unremarkable. IMPRESSION: 1. There is no acute fracture or dislocation evident in the cervical spine. 2. No acute intracranial hemorrhage, mass effect, or midline shift is seen.
[2020-08-02 09:10] LABS: Appearance,Urine Clear (Clear); Bilirubin,Urine Negative (Negative); Blood,Urine Negative (Negative); Color,Urine Yellow; Glucose,Urine (UA) Negative (Negative); Ketones,Urine Negative (Negative); Leukocyte Esterase,Urine Negative (Negative); Nitrite,Urine Negative (Negative); PH, Urine 5.5 (5.0-8.0); Protein,Urine Negative (Negative); Specific Gravity,Urine 1.015 (1.001-1.035); Urobilinogen,Urine <2.0 mg/dL (<2.0)
[2020-08-02 09:20] VITALS: BP 139/85; PULSE 62
--- NOTE | 2020-08-02 09:21 | XR ---
EXAMINATION TYPE: XR chest 2V DATE OF EXAM: 08/02/2020 COMPARISON: 07/07/2020 HISTORY: Shortness of breath TECHNIQUE: Frontal and lateral views of the chest are obtained. FINDINGS: Scattered senescent parenchymal changes noted. Hyperinflation compatible with COPD. No evidence for infiltrate. No evidence for atelectasis. Dual-lead pacer device is in place. Heart size is stable. Mediastinal structures are stable and grossly unremarkable. No evidence for hilar prominence. Degenerative changes dorsal spine. IMPRESSION: 1. No evidence for acute pulmonary disease.
--- NOTE | 2020-08-02 09:32 | XR ---
EXAMINATION TYPE: XR lumbar spine 2 or 3V DATE OF EXAM: 08/02/2020 CLINICAL HISTORY: pain TECHNIQUE: Three views of the lumbar spine are submitted. COMPARISON: None. FINDINGS: There are 5 lumbar type vertebral bodies identified. The lumbar spine shows satisfactory alignment w ithout evidence of acute fracture or dislocation. Vertebral body heights are within normal limits. Se brandyn multilevel degenerative disc disease with vacuum disc, endplate sclerosis and spondylosis. Sever e facet joint arthropathy. Grade 1 anterolisthesis L4 and L5 of 6 mm. The overlying soft tissue appea rs unremarkable. IMPRESSION: Advanced degenerative changes. ICD 10 NO FRACTURE, INITIAL EVALUATION
[2020-08-02] MEDS ORDERED: DIPH,PERTUS(ACELL)TETVAC-LF 0.5 ML VIAL IM ONE (09:42)
== END 2020-08-02 09:57 | disposition home or self-care (01) ==
LOC: EC 07:15
DX: S00.81XA Abrasion of other part of head, initial encounter (principal); S00.31XA Abrasion of nose, initial encounter; E87.5 Hyperkalemia; M54.5 Low back pain; E11.65 Type 2 diabetes mellitus with hyperglycemia; Z23 Encounter for immunization; F41.9 Anxiety disorder, unspecified; I48.91 Unspecified atrial fibrillation; I25.119 Atherosclerotic heart disease of native coronary artery with unspecified angina pectoris; G25.81 Restless legs syndrome; K21.9 Gastro-esophageal reflux disease without esophagitis; E78.5 Hyperlipidemia, unspecified; I10 Essential (primary) hypertension; M19.90 Unspecified osteoarthritis, unspecified site; G47.33 Obstructive sleep apnea (adult) (pediatric); E07.9 Disorder of thyroid, unspecified; Z79.01 Long term (current) use of anticoagulants; Z79.84 Long term (current) use of oral hypoglycemic drugs; Z91.81 History of falling; Z79.899 Other long term (current) drug therapy; Z79.890 Hormone replacement therapy; Z88.8 Allergy status to other drugs, medicaments and biological substances; Z91.048 Other nonmedicinal substance allergy status; Z87.891 Personal history of nicotine dependence; Z95.5 Presence of coronary angioplasty implant and graft; Z95.0 Presence of cardiac pacemaker; Z90.49 Acquired absence of other specified parts of digestive tract; Z90.710 Acquired absence of both cervix and uterus; Z98.42 Cataract extraction status, left eye; Z98.41 Cataract extraction status, right eye; Z85.828 Personal history of other malignant neoplasm of skin; Z80.0 Family history of malignant neoplasm of digestive organs; W01.10XA Fall on same level from slipping, tripping and stumbling with subsequent striking against unspecified object, initial encounter
CPT/HCPCS: 36415; 70450; 71046; 72100; 72125; 80053; 81003; 83735; 84484; 85025; 85610; 85730; 90471; 90715; 93005; 96360; 99284

== ENCOUNTER 2020-08-03 02:09 | Observation (INO) | payer MEDICARE ==
--- NOTE | 2020-08-03 02:29 | ED ---
Fall HPI - General Chief Complaint: Fall Stated Complaint: Fall, head injury Time Seen by Provider: 08/03/20 02:14 Source: patient, RN notes reviewed, old records reviewed Mode of arrival: wheelchair - History of Present Illness Initial Comments: This is a 89-year-old female to the ER for recurrent falls. Patient is multiple significant recurrent falls as well as multiple issues. Patient has continued recurrent falls. MD Complaint: fall, other (weakness) -: hour(s) Fall From: standing When Fall Occurred: unsure Fall Witnessed: no Place Fall Occurred: home Loss of Consciousness: none Prolonged Down Time?: no Symptoms Prior to Fall: none Location: head, face Severity: moderate Severity scale (1-10): 3 Context: tripped/slipped, history of frequent falls Associated Symptoms: denies - Related Data Home Medications Medication Instructions Recorded Confirmed Apixaban [Eliquis] 5 mg PO BID 04/19/17 08/03/20 Ascorbic Acid [Vitamin C] 500 mg PO DAILY PRN 04/19/17 08/03/20 Cholecalciferol [Vitamin D3 (25 3,000 unit PO DAILY 04/19/17 08/03/20 Mcg = 1000 Iu)] glipiZIDE XL [Glucotrol XL] 2.5 mg PO DAILY 04/19/17 08/03/20 Levothyroxine Sodium [Synthroid] 75 mcg PO DAILY 05/26/17 08/03/20 Estradiol 0.05MG/24Hr Biwkptch 1 patch TRANSDERM SUWE 01/13/19 08/03/20 [Vivelle-Dot 0.05 MG] traMADol HCL [Ultram] 50 mg PO BID PRN 01/13/19 08/03/20 Atorvastatin [Lipitor] 20 mg PO HS 05/09/19 08/03/20 Isosorbide Mononitrate ER [Imdur] 90 mg PO HS 05/09/19 08/03/20 Melatonin 10 mg PO HS 05/09/19 08/03/20 Spironolactone [Aldactone] 25 mg PO DAILY PRN 05/09/19 08/03/20 ALPRAZolam [Xanax] 0.25 mg PO BID PRN 09/17/19 08/03/20 hydrALAZINE HCL [Apresoline] 100 mg PO Q8H 09/17/19 08/03/20 Metoprolol Tartrate [Lopressor] 100 mg PO TID 02/27/20 08/03/20 Gabapentin [Neurontin] 100 mg PO BID PRN 06/01/20 08/03/20 Loperamide [Imodium] 2 mg PO DAILY PRN 06/01/20 08/03/20 diphenhydrAMINE [Benadryl] 25 mg PO DAILY PRN 06/01/20 08/03/20 cloNIDine HCL [Catapres] 0.1 mg PO TID PRN 06/16/20 08/03/20 Furosemide [Lasix] 20 mg PO Q48H 07/05/20 08/03/20 Albuterol Inhaler [Ventolin Hfa 2 puff INHALATION RT-QID PRN 08/02/20 08/03/20 Inhaler] Nitroglycerin Sl Tabs [Nitrostat] 0.4 mg SL Q5M PRN 08/02/20 08/03/20 Previous Rx's Medication Instructions Recorded Isosorbide Mononitrate ER [Imdur] 60 mg PO DAILY tab.er.24h 01/13/19 cloNIDine HCL [Catapres] 0.2 mg PO BID #60 tab 06/02/20 Aspirin 81 mg PO BID #0 chew 07/07/20 Famotidine [Pepcid] 20 mg PO BID #60 tablet 07/07/20 Zinc Sulfate [Orazinc] 220 mg PO DAILY cap 07/07/20 Cefuroxime [Ceftin] 250 mg PO BID 3 Days #6 tab 08/04/20 traMADol HCl [Ultram] 50 mg PO Q6HR PRN 3 Days #12 tab 08/04/20 traZODone HCL [Desyrel] 50 mg PO HS #30 tab 08/04/20 Allergies Allergy/AdvReac Type Severity Reaction Status Date / Time JORGITO Inhibitors Allergy Severe Swelling Verified 08/04/20 23:04 cortisone Allergy Severe Rash/Hives, Verified 08/04/20 23:04 high BP Calcium Channel Blocking AdvReac SORES IN Verified 08/04/20 23:04 Agent Dilt MOUTH dust,trees Allergy Itching Uncoded 08/04/20 23:04 Review of Systems ROS Statement: Those systems with pertinent positive or pertinent negative responses have been documented in the HPI. ROS Other: All systems not noted in ROS Statement are negative. Past Medical History Past Medical History: Atrial Fibrillation, Coronary Artery Disease (CAD), Cancer, Chest Pain / Angina, Diabetes Mellitus, GERD/Reflux, Hyperlipidemia, Hypertension, Osteoarthritis (OA), Sleep Apnea/CPAP/BIPAP, Thyroid Disorder Additional Past Medical History / Comment(s): skin cancer, restless leg syndrome, varicose veins, IBS, History of Any Multi-Drug Resistant Organisms: None Reported Past Surgical History: Adenoidectomy, Appendectomy, Breast Surgery, Cholecystectomy, Heart Catheterization With Stent, Hysterectomy, Orthopedic Surgery, Pacemaker, Tonsillectomy Additional Past Surgical History / Comment(s): walt cataract, 3 stents, partial thyroidectomy, rt shoulder rotator cuff, walt breast biopsy, metal clip in rt breast Past Anesthesia/Blood Transfusion Reactions: No Reported Reaction Date of Last Stent Placement:: 1998 Type of Cardiac Device: Permanent Pacemaker, Unknown Device Placement Date:: 2014 Past Psychological History: Anxiety Smoking Status: Former smoker Past Alcohol Use History: Occasional Past Drug Use History: None Reported - Past Family History Mother Additional Family Medical History / Comment(s): Mother at age 76 from massive stroke. Brother(s) Additional Family Medical History / Comment(s): The patient had a total of 3 brothers. One brother from melanoma. One brother is with history of coronary artery disease status post CABG. One brother has from colon cancer with history of coronary artery disease. Patient does not have any si sters. Daughter(s) Family Medical History: No Reported History (Healthy 1 daughter) Son(s) History Unknown: Yes (Healthy 3 sons) Additional Family Medical History / Comment(s): Patient has 3 sons and 1 daughter. One son has history of coronary artery disease, second son has history of AICD. Patient has 1 son and 1 daughter with no major medical problems. Father Additional Family Medical History / Comment(s): Father at age 59 from a myocardial infarction. General Exam Limitations: no limitations General appearance: alert, in no apparent distress Head exam: Present: atraumatic, normocephalic, normal inspection Eye exam: Present: normal appearance, PERRL, EOMI. Absent: scleral icterus, conjunctival injection, periorbital swelling ENT exam: Present: normal exam, mucous membranes moist Neck exam: Present: normal inspection. Absent: tenderness, meningismus, lymphadenopathy Respiratory exam: Present: normal lung sounds bilaterally. Absent: respiratory distress, wheezes, rales, rhonchi, stridor Cardiovascular Exam: Present: regular rate, normal rhythm, normal heart sounds. Absent: systolic murmur, diastolic murmur, rubs, gallop, clicks GI/Abdominal exam: Present: soft, normal bowel sounds. Absent: distended, tenderness, guarding, rebound, rigid Extremities exam: Present: normal inspection, full ROM, normal capillary refill. Absent: tenderness, pedal edema, joint swelling, calf tenderness Back exam: Present: normal inspection Neurological exam: Present: alert, oriented X3, CN II-XII intact Psychiatric exam: Present: normal affect, normal mood Skin exam: Present: warm, dry, intact, normal color. Absent: rash Course Vital Signs 08/03/20 08/03/20 08/03/20 02:22 03:00 04:00 Temperature 97.0 F L Pulse Rate 80 64 64 Respiratory 18 18 18 Rate Blood Pressure 137/79 O2 Sat by Pulse 95 96 97 Oximetry 08/03/20 04:46 Temperature 97.0 F L Pulse Rate 62 Respiratory 18 Rate Blood Pressure 148/81 O2 Sat by Pulse 96 Oximetry - Reevaluation(s) Reevaluation #1: Medical record is reviewed Patient is informed of results here in the ER and questions are answered Patient spoken with, feeling better, symptoms remained improved Patient still will be admitted for recurrent falls Medical Decision Making - Medical Decision Making 89 female to the ER for recurrent falls, no trauma injuries are noted the p atient does have continued persistent recurrent falls at this point requiring hospitalization - Lab Data Result diagrams: 08/03/20 03:42 08/03/20 03:42 Lab Results 08/03/20 08/03/20 08/03/20 Range/Units 03:42 03:42 03:42 WBC 7.4 (3.8-10.6) k/uL RBC 4.75 (3.80-5.40) m/uL Hgb 14.6 (11.4-16.0) gm/dL Hct 45.8 (34.0-46.0) % MCV 96.4 (80.0-100.0) fL MCH 30.8 (25.0-35.0) pg MCHC 32.0 (31.0-37.0) g/dL RDW 13.9 (11.5-15.5) % Plt Count 250 (150-450) k/uL MPV 7.3 Neutrophils % 61 % Lymphocytes % 19 % Monocytes % 12 % Eosinophils % 4 % Basophils % 1 % Neutrophils # 4.5 (1.3-7.7) k/uL Lymphocytes # 1.4 (1.0-4.8) k/uL Monocytes # 0.9 (0-1.0) k/uL Eosinophils # 0.3 (0-0.7) k/uL Basophils # 0.1 (0-0.2) k/uL PT 9.9 (9.0-12.0) sec INR 0.9 (<1.2) APTT 24.2 (22.0-30.0) sec Sodium (137-145) mmol/L Potassium (3.5-5.1) mmol/L Chloride (98-107) mmol/L Carbon Dioxide (22-30) mmol/L Anion Gap mmol/L BUN (7-17) mg/dL Creatinine (0.52-1.04) mg/dL Est GFR (CKD-EPI)AfAm (>60 ml/min/1.73 sqM) Est GFR (CKD-EPI)NonAf (>60 ml/min/1.73 sqM) Glucose (74-99) mg/dL Calcium (8.4-10.2) mg/dL Phosphorus (2.5-4.5) mg/dL Magnesium (1.6-2.3) mg/dL Total Bilirubin (0.2-1.3) mg/dL AST (14-36) U/L ALT (4-34) U/L Alkaline Phosphatase (38-126) U/L Creatine Kinase (30-135) U/L Troponin I (0.000-0.034) ng/mL NT-Pro-B Natriuret Pep pg/mL Total Protein (6.3-8.2) g/dL Albumin (3.5-5.0) g/dL TSH (0.465-4.680) mIU/L Urine Color Yellow Urine Appearance Clear (Clear) Urine pH 5.5 (5.0-8.0) Ur Specific [place] 1.016 (1.001-1.035) Urine Protein Negative (Negative) Urine Glucose (UA) Negative (Negative) Urine Ketones Negative (Negative) Urine Blood Negative (Negative) Urine Nitrite Positive H (Negative) Urine Bilirubin Negative (Negative) Urine Urobilinogen <2.0 (<2.0) mg/dL Ur Leukocyte Esterase Negative (Negative) Urine RBC <1 (0-5) /hpf Urine WBC 1 (0-5) /hpf Ur Squamous Epith Cells 1 (0-4) /hpf Urine Bacteria Rare H (None) /hpf Urine Mucus Rare H (None) /hpf 08/03/20 08/03/20 08/03/20 Range/Units 03:42 03:42 03:42 WBC (3.8-10.6) k/uL RBC (3.80-5.40) m/uL Hgb (11.4-16.0) gm/dL Hct (34.0-46.0) % MCV (80.0-100.0) fL MCH (25.0-35.0) pg MCHC (31.0-37.0) g/dL RDW (11.5-15.5) % Plt Count (150-450) k/uL MPV Neutrophils % % Lymphocytes % % Monocytes % % Eosinophils % % Basophils % % Neutrophils # (1.3-7.7) k/uL Lymphocytes # (1.0-4.8) k/uL Monocytes # (0-1.0) k/uL Eosinophils # (0-0.7) k/uL Basophils # (0-0.2) k/uL PT (9.0-12.0) sec INR (<1.2) APTT (22.0-30.0) sec Sodium 135 L (137-145) mmol/L Potassium 4.7 (3.5-5.1) mmol/L Chloride 104 (98-107) mmol/L Carbon Dioxide 30 (22-30) mmol/L Anion Gap 1 mmol/L BUN 25 H (7-17) mg/dL Creatinine 0.79 (0.52-1.04) mg/dL Est GFR (CKD-EPI)AfAm 78 (>60 ml/min/1.73 sqM) Est GFR (CKD-EPI)NonAf 68 (>60 ml/min/1.73 sqM) Glucose 172 H (74-99) mg/dL Calcium 9.6 (8.4-10.2) mg/dL Phosphorus 3.8 (2.5-4.5) mg/dL Magnesium 2.0 (1.6-2.3) mg/dL Total Bilirubin 0.9 (0.2-1.3) mg/dL AST 30 (14-36) U/L ALT 37 H (4-34) U/L Alkaline Phosphatase 71 (38-126) U/L Creatine Kinase 86 (30-135) U/L Troponin I <0.012 (0.000-0.034) ng/mL NT-Pro-B Natriuret Pep 2400 pg/mL Total Protein 5.9 L (6.3-8.2) g/dL Albumin 3.3 L (3.5-5.0) g/dL TSH 3.330 (0.465-4.680) mIU/L Urine Color Urine Appearance (Clear) Urine pH (5.0-8.0) Ur Specific [place] (1.001-1.035) Urine Protein (Negative) Urine Glucose (UA) (Negative) Urine Ketones (Negative) Urine Blood (Negative) Urine Nitrite (Negative) Urine Bilirubin (Negative) Urine Urobilinogen (<2.0) mg/dL Ur Leukocyte Esterase (Negative) Urine RBC (0-5) /hpf Urine WBC (0-5) /hpf Ur Squamous Epith Cells (0-4) /hpf Urine Bacteria (None) /hpf Urine Mucus (None) /hpf - EKG Data -: No EKG Interpreted by Me (EKG shows rhythm of 82, wide QRSof 148 QTc 497) - Radiology Data Radiology results: report reviewed (CT brain C-spine negative for acute disease), image reviewed Disposition Clinical Impression: Falls, Weakness Disposition: ADMITTED IP TO THIS HOSP Condition: Good Is patient prescribed a controlled substance at d/c from ED?: No
[2020-08-03] MEDS ORDERED: SODIUM CHLORIDE 0.9% 1,000 ML IV STA (03:27)
[2020-08-03] MEDS ORDERED: NALOXONE 0.4 MG/ML 1 ML VIAL IV PRN (03:54)
[2020-08-03 03:59] LABS: Basophils # (A) 0.1 k/uL (0-0.2); Basophils % (A) 1 %; Eosinophils # (A) 0.3 k/uL (0-0.7); Eosinophils % (A) 4 %; HCT 45.8 % (34.0-46.0); HGB 14.6 gm/dL (11.4-16.0); Lymphocytes # (A) 1.4 k/uL (1.0-4.8); Lymphocytes % (A) 19 %; MCH 30.8 pg (25.0-35.0); MCV 96.4 fL (80.0-100.0); Mean Platelet Volume 7.3; Monocytes # (A) 0.9 k/uL (0-1.0); Monocytes % (A) 12 %; Neutrophils # (A) 4.5 k/uL (1.3-7.7); Neutrophils % (A) 61 %; Platelet Count 250 k/uL (150-450); RBC 4.75 m/uL (3.80-5.40); RDW 13.9 % (11.5-15.5); WBC 7.4 k/uL (3.8-10.6)
[2020-08-03 04:04] LABS: Appearance,Urine Clear (Clear); Bacteria,Urine Rare /hpf; Bilirubin,Urine Negative (Negative); Blood,Urine Negative (Negative); Color,Urine Yellow; Glucose,Urine (UA) Negative (Negative); Ketones,Urine Negative (Negative); Leukocyte Esterase,Urine Negative (Negative); Mucus,Urine Rare /hpf; Nitrite,Urine Positive (Negative); PH, Urine 5.5 (5.0-8.0); Protein,Urine Negative (Negative); RBC,Urine <1 /hpf (0-5); Specific Gravity,Urine 1.016 (1.001-1.035); Squamous Epithelial Cell,Urine 1 /hpf (0-4); Urobilinogen,Urine <2.0 mg/dL (<2.0); WBC,Urine 1 /hpf (0-5)
[2020-08-03 04:08] LABS: INR 0.9 (<1.2); Partial Thromboplastin Time 24.2 sec (22.0-30.0); Prothrombin Time 9.9 sec (9.0-12.0)
[2020-08-03 04:21] LABS: Albumin 3.3 g/dL (3.5-5.0); Calcium 9.6 mg/dL (8.4-10.2); Phosphorus 3.8 mg/dL (2.5-4.5); Potassium 4.7 mmol/L (3.5-5.1); Total Bilirubin 0.9 mg/dL (0.2-1.3); Total Protein 5.9 g/dL (6.3-8.2)
--- NOTE | 2020-08-03 04:26 | CT ---
EXAM: CT Head Without Intravenous Contrast CLINICAL HISTORY: ITS.REASON CT Reason: fall TECHNIQUE: Axial computed tomography images of the head/brain without intravenous contrast. CTDI is 45.2 mGy and DLP is 1036 mGy-cm. This CT exam was performed using one or more of the following dose reduction techniques: automated exposure control, adjustment of the mA and/or kV according to patient size, and/or use of iterative reconstruction technique. COMPARISON: No relevant prior studies available. FINDINGS: Brain: Unremarkable. No hemorrhage. No significant white matter disease. No edema. Ventricles: Unremarkable. No ventriculomegaly. Bones/joints: Unremarkable. No acute fracture. Soft tissues: Unremarkable. Sinuses: Unremarkable as visualized. No acute sinusitis. Mastoid air cells: Unremarkable as visualized. No mastoid effusion. IMPRESSION: Normal head/brain CT. EXAM: CT Cervical Spine Without Intravenous Contrast CLINICAL HISTORY: ITS.REASON CT Reason: fall TECHNIQUE: Axial computed tomography images of the cervical spine without intravenous contrast. CTDI is 12.77 mGy and DLP is 404.8 mGy-cm. This CT exam was performed using one or more of the following dose reduction techniques: automated exposure control, adjustment of the mA and/or kV according to patient size, and/or use of iterative reconstruction technique. COMPARISON: No relevant prior studies available. FINDINGS: Vertebrae: Mild narrowing and osteophytosis of the atlantodental joint. The odontoid process is intact. No acute fracture. Interspaces: See below. Soft tissues: Unremarkable. Lymph nodes: And sentinel node is made of severe calcification of the carotid bifurcations bilaterally. DISCS/SPINAL CANAL/NEURAL FORAMINA: C2-C3: Mild disc space narrowing at C2-3 and C3-4. C3-C4: Mild disc space narrowing at C2-3 and C3-4. C4-C5: 2 mm anterior listhesis of C4 on C5 due to degenerative facet arthrosis. C5-C6: Severe disc space narrowing with end plate sclerosis and 4 mm posterior disc marginal osteophyte formation at C5-6. No significant spinal stenosis is seen with there is severe right neural foraminal narrowing at that level. C6-C7: Moderate loss of disc space height at C6-7 and C7-T1 with no spinal stenosis. Mild bilateral neuroforaminal narrowing at C6-7. C7-T1: See above. 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 No acute fracture or spinal stenosis is seen. There are varying degrees of neural foraminal narrowing as described above.
--- NOTE | 2020-08-03 04:36 | XR ---
EXAM: XR Chest, 1 View CLINICAL HISTORY: ITS.REASON XR Reason: Weakness TECHNIQUE: Frontal view of the chest. COMPARISON: June 16, 2020 FINDINGS: Lungs: Slight interstitial increased density over the lung bases, improved since previous. Pleural space: Unremarkable. No pneumothorax. Heart: Unremarkable. No cardiomegaly. Mediastinum: Unremarkable. Bones/joints: Mild degenerative changes in the thoracic spine. Vasculature: The thoracic aorta is mildly calcified, unchanged. Tubes, lines and devices: There is a pacing device on the left. The cardiac silhouette is mildly enlarged, unchanged. Upper abdomen: No pneumoperitoneum is seen under the diaphragm. IMPRESSION: Slight interstitial increased density over the lung bases, improved since previous. Pacing device with mild cardiomegaly, unchanged.
--- NOTE | 2020-08-03 04:41 | XR ---
EXAM: XR Pelvis, 1 or 2 Views CLINICAL HISTORY: ITS.REASON XR Reason: fall TECHNIQUE: Frontal view of the pelvis. COMPARISON: No relevant prior studies available. FINDINGS: Bones/joints: Mild narrowing and osteophytosis of the hip joints consistent with mild osteoarthritis. No acute fracture or dislocation is seen. Soft tissues: Unremarkable. IMPRESSION: No acute findings in the pelvis.
--- NOTE | 2020-08-03 10:02 | P.HPIM ---
History of Present Illness H&P Date: 08/03/20 Chief Complaint: Syncope, Possible atypical seizure, possible narcolepsy, 89-year-old one of my office patient with past medical history of atherosclerotic heart disease, A. fib, recurrent chest pain, obstructive sleep apnea not using CPAP or BiPAP lately, hypertension, noncontrolled hypertension has been seen cardiology and nephrology on regular basis fourth. Patient has been seen at the emergency department at [facility] few times in the last week with multiple falls not well explained she claimed that she fell out of bed does not remember why then she had lower mattress and still fell out of her mattress and found herself controlling in weird space in the bedroom. She fell yesterday and was a demurs department for a few hours had small cut over her nose her stud y was negative was sent home. She presented again to the emergency department with another fall and explain she woke up and found herself on the floor ended up coming to the emergency department all her testing came back to be negative her blood pressure was slightly elevated at the time. Patient was hospitalized will be seen neurology further testing such as EEG will be done reviewing her records from February she had significant stenosis of the left carotid artery was over 70% did not require any intervention at the time patient will be going for CT of the neck along with carotid ultrasound also we will have neurology to see her and have an EEG and patient will be highly recommended to go back to do another sleep study and to meet with her sleep physician to determine on some sort of CPAP device can control some of the symptom happening at night and protect her from having the event ongoing either related to narcolepsy or sleep apnea. Review of Systems CONSTITUTIONAL: Well-developed no acute respiratory distress. EYES: No icterus sclerae, no conjunctivitis. EARS, NOSE, MOUTH, THROAT, and FACE: No sore throat, lymphadenopathy, carotid bruits or deformity. Small cut on the bridge of her nose with no bleed no sign of fracture RESPIRATORY: No SOB cough or wheezes. CARDIOVASCULAR: No CP, Palpitation, PND, Orthopnea, or angina. Mild shortness of breath and noncontrolled blood pressure still but better on medication. GASTROINTESTINAL: No Abd pain, Nausea or vomiting, no Diarrhea or constipation, No GI Bleed, no distention or masses. GENITOURINARY: Negative for Hematuria or UTI, no kidney stones. INTEGUMENT/BREAST: Negative for any muscular injury with mild osteoarthritis.. HEMATOLOGIC/LYMPHATIC: Negative for bleed or purpura. MUSCULOSKELTAL: Negative for Myalgia or arthralgia. NEURLOGICAL: No blurred vision dizziness or abnormality. Question of seizure and multiple syncope in the last few weeks not explained. BEHAVIORAL/PSYCH: Negative. ENDOCRINE: Negative. Past Medical History Past Medical History: Atrial Fibrillation, Coronary Artery Disease (CAD), Cancer, Chest Pain / Angina, Diabetes Mellitus, GERD/Reflux, Hyperlipidemia, Hypertension, Osteoarthritis (OA), Sleep Apnea/CPAP/BIPAP, Thyroid Disorder Additional Past Medical History / Comment(s): skin cancer, restless leg syndrome, varicose veins, IBS, History of Any Multi-Drug Resistant Organisms: None Reported Past Surgical History: Adenoidectomy, Appendectomy, Breast Surgery, Cholecystectomy, Heart Catheterization With Stent, Hysterectomy, Orthopedic Surgery, Pacemaker, Tonsillectomy Additional Past Surgical History / Comment(s): walt cataract, 3 stents, partial thyroidectomy, rt shoulder rotator cuff, walt breast biopsy, metal clip in rt breast Past Anesthesia/Blood Transfusion Reactions: No Reported Reaction Date of Last Stent Placement:: 1998 Type of Cardiac Device: Permanent Pacemaker, Unknown Device Placement Date:: 2014 Past Psychological History: Anxiety Smoking Status: Never smoker Past Alcohol Use History: Occasional Additional Past Alcohol Use History / Comment(s): The patient was a smoker briefly as a kid. She drinks alcohol occasionally. Past Drug Use History: None Reported - Past Family History Mother Additional Family Medical History / Comment(s): Mother at age 76 from massive stroke. Brother(s) Additional Family Medical History / Comment(s): The patient had a total of 3 brothers. One brother from melanoma. One brother is with history of coronary artery disease status post CABG. One brother has from colon cancer with history of coronary artery disease. Patient does not have any sisters. Daughter(s) Family Medical History: No Reported History (Healthy 1 daughter) Son(s) History Unknown: Yes (Healthy 3 sons) Additional Family Medical History / Comment(s): Patient has 3 sons and 1 daughter. One son has history of coronary artery disease, second son has history of AICD. Patient has 1 son and 1 daughter with no major medical problems. Father Additional Family Medical History / Comment(s): Father at age 59 from a myocardial infarction. Medications and Allergies Home Medications Medication Instructions Recorded Confirmed Type Apixaban [Eliquis] 5 mg PO BID 04/19/17 08/03/20 History Ascorbic Acid [Vitamin C] 500 mg PO DAILY PRN 04/19/17 08/03/20 History Cholecalciferol [Vitamin D3 (25 3,000 unit PO DAILY 04/19/17 08/03/20 History Mcg = 1000 Iu)] glipiZIDE XL [Glucotrol XL] 2.5 mg PO DAILY 04/19/17 08/03/20 History Levothyroxine Sodium [Synthroid] 75 mcg PO DAILY 05/26/17 08/03/20 History Estradiol 0.05MG/24Hr Biwkptch 1 patch TRANSDERM SUWE 01/13/19 08/03/20 History [Vivelle-Dot 0.05 MG] Isosorbide Mononitrate ER [Imdur] 60 mg PO DAILY tab.er.24h 01/13/19 08/03/20 Rx traMADol HCL [Ultram] 50 mg PO BID PRN 01/13/19 08/03/20 History Atorvastatin [Lipitor] 20 mg PO HS 05/09/19 08/03/20 History Isosorbide Mononitrate ER [Imdur] 90 mg PO HS 05/09/19 08/03/20 History Melatonin 10 mg PO HS 05/09/19 08/03/20 History Spironolactone [Aldactone] 25 mg PO DAILY PRN 05/09/19 08/03/20 History ALPRAZolam [Xanax] 0.25 mg PO BID PRN 09/17/19 08/03/20 History hydrALAZINE HCL [Apresoline] 100 mg PO Q8H 09/17/19 08/03/20 History Metoprolol Tartrate [Lopressor] 100 mg PO TID 02/27/20 08/03/20 History Gabapentin [Neurontin] 100 mg PO BID PRN 06/01/20 08/03/20 History Loperamide [Imodium] 2 mg PO DAILY PRN 06/01/20 08/03/20 History diphenhydrAMINE [Benadryl] 25 mg PO DAILY PRN 06/01/20 08/03/20 History cloNIDine HCL [Catapres] 0.2 mg PO BID #60 tab 06/02/20 08/03/20 Rx cloNIDine HCL [Catapres] 0.1 mg PO TID PRN 06/16/20 08/03/20 History Furosemide [Lasix] 20 mg PO Q48H 07/05/20 08/03/20 History Aspirin 81 mg PO BID #0 chew 07/07/20 08/03/20 Rx Famotidine [Pepcid] 20 mg PO BID #60 tablet 07/07/20 08/03/20 Rx Zinc Sulfate [Orazinc] 220 mg PO DAILY cap 07/07/20 08/03/20 Rx Albuterol Inhaler [Ventolin Hfa 2 puff INHALATION RT-QID PRN 08/02/20 08/03/20 History Inhaler] Nitroglycerin Sl Tabs [Nitrostat] 0.4 mg SL Q5M PRN 08/02/20 08/03/20 History Allergies Allergy/AdvReac Type Severity Reaction Status Date / Time JORGITO Inhibitors Allergy Severe Swelling Verified 08/03/20 09:05 cortisone Allergy Severe Rash/Hives, Verified 08/03/20 09:05 high BP Calcium Channel Blocking AdvReac SORES IN Verified 08/03/20 09:05 Agent Dilt MOUTH dust,trees Allergy Itching Uncoded 08/03/20 09:05 Physical Exam Vitals: Vital Signs Temp Pulse Pulse Resp BP BP Pulse Ox 08/03/20 06:27 19 08/03/20 05:26 97.7 F 62 19 167/60 95 08/03/20 04:46 97.0 F L 62 18 148/81 96 08/03/20 04:00 64 18 97 08/03/20 03:00 64 18 96 08/03/20 02:22 97.0 F L 80 18 137/79 95 Intake and Output 08/02/20 08/03/20 08/03/20 22:59 06:59 14:59 Other: # Voids 1 Weight 87.997 kg General Appearance: Alert, cooperative, no distress, appears stated age. Neck HEENT: Supple, no lymphadenopathy, no thyroid enlargement, no carotid bruits. Smaller bruises and cuts on the bridge of her nose with no fracture Lungs: Clear to auscultation without crackles or wheezes no rhonchi, no deformity. Chest Wall: Decrease expansion with deep inspiration no tenderness and no deformity was found on exam, no costochondral pain or discomfort. Heart: Irregular rate and rhythm, S1, S2 positive S3 positive systolic murmur. Back: Symmetric, no curvature, ROM normal, no CVA tenderness. Abdomen: Soft, non-tender, bowel sounds active all four quadrants, no masses, no organomegaly. Extremities: Extremities normal, atraumatic, no cyanosis or edema. Smaller bruises on the lower extremity. Pulses: 2+ and symmetric. Skin: Skin color, texture, tugor normal, no rashes or lesions. Neurologic: Alert oriented x3 cranial nerves II through XII intact, no motor deficit, significant abnormal balance and gait. Results CBC & Chem 7: 08/03/20 03:42 08/03/20 03:42 Labs: Abnormal Lab Results - Last 24 Hours (Table) 08/03/20 08/03/20 Range/Units 03:42 03:42 Sodium 135 L (137-145) mmol/L BUN 25 H (7-17) mg/dL Glucose 172 H (74-99) mg/dL ALT 37 H (4-34) U/L Total Protein 5.9 L (6.3-8.2) g/dL Albumin 3.3 L (3.5-5.0) g/dL Urine Nitrite Positive H (Negative) Urine Bacteria Rare H (None) /hpf Urine Mucus Rare H (None) /hpf Thrombosis Risk Factor Assmnt - DVT/VTE Prophylaxis DVT/VTE Prophylaxis: Pharmacologic Prophylaxis ordered, Mechanical Prophylaxis ordered - Choose All That Apply Other Risk Factors: Yes Each Risk Factor Represents 3 Points: Age 75 years or older Thrombosis Risk Factor Assessment Total Risk Factor Score: 3 Thrombosis Risk Factor Assessment Level: Moderate Risk Assessment and Plan Assessment: 1 multiple syncope: Not clear etiology could be seizure activity, could be related to sleep apnea with hypoxia not using CPAP, still can be related to narcolepsy, could be extrapyramidal movement causing patient to fell out of bed in the middle of the night and her dream cycle. Also could be side effect of the new blood pressure medication was started recently by her clerk typist [email or web address]. Patient be seen neurology, carotid ultrasound, CT of the neck will be done, EEG and further management including MRI of the brain order by neurology if needed. 2 multiple falls: Mostly at nighttime most likely related to lack of control happen either related to seizure activity of sleep apnea, patient need to be watch more carefully will be nice to be able to videotape patient and her sleep to see what event staking and affect such thing can be done in one of the sleep Center or one of the ambulatory seizure center in one of the tertiary center. 3 noncontrolled hypertension: Much better so far with the last medication done by clerk typist. 4 recurrent angina mostly Prinzmetal angina: Patient has been on isosorbide mononitrate along with calcium channel william and still seen her clerk typist on regular basis. 5 type 2 diabetes: Has been on oral hypoglycemic agent Accu-Chek with sliding scales coverage will be done. 6 Atrial fibrillation: Patient remain on beta william and still on anticoagulation. 7 Hyperlipidemia: Remain on atorvastatin 20 mg daily. 8 diastolic congestive heart failure: Well preserved ejection fraction, patient remain on isosorbide, furosemide, metoprolol and spironolactone continue hydralazine as well. 9 hypothyroidism: Remain on levothyroxine 75 g daily. 10 chronic history of colitis: Remain on Imodium on an as-needed basis. 11 chronic peripheral neuropathy: Mostly diabetic has been on gabapentin 100 mg twice a day. 12 DVT prophylaxis: Still on anticoagulation. 13 GI prophylaxis: Patient will be on Pepcid 20 mg daily. CODE STATUS: Full code. Admit patient to the inpatient service for more than 2 night stay.
--- NOTE | 2020-08-03 11:24 | P.CNNES ---
History of Present Illness Consult date: 08/03/20 Requesting physician: Otoniel Dobbs Reason for Consult: falls History of Present Illness: This is an 89-year-old woman with medical history of restless leg syndrome (not on medication), atrial fibrillation, coronary artery disease s/p 3 stents, obstructive sleep apnea not on CPAP/BiPAP, uncontrolled hypertension, heart failure, status post pacemaker (5 years ago), diabetes, hyperlipidemia and hypothyroidism that presented emergency department on 08/03/2020 was a multiple falls. The patient is known to Dr. Locke. The patient stated that the she is having episodes of falls that when she is in bed all of a sudden she finds herself on the floor. She said that the she goes to sleep and then she wakes up the just to follow up before the fall and she ends up on the floor. She denies any aura was prior to the falls. This only happens after she goes to sleep at. She denies any urinary or bowel incontinence with these episodes. Denies bite with these episodes at. She stated that that these has been happening since 6 years but has been more frequent recently. And the last 1 week she had the 4 episodes of falls. As I mentioned before and only happens after going to sleep. She said that she lives home alone. She denies of any focal weakness, numbness, visual disturbance or difficulty getting her words out. She uses a walker at home. She lives home alone and she said that her son lives just across from her. She said that yes she was evaluated by Dr. Hair (neurologist) and she said that that he he saw her about 3 years ago regarding these episodes he didn't EEG and she thinks that the he notified it was normal. And he did not start her on the seizure medication according to Dr. fernando at. She does not have any seizures in the past or as a childhood. Regarding her lack restless leg syndrome she said that she was on Klonopin in the past but last time used was 6 month ago because of the side effects as she read about it that it can cause a seizures and she does not want to be on it. Patient is on Apixaban 5 mg 1 tablet twice a day as well as aspirin. She stated that when she is in the more pain she'll take additional doses of aspirin on top of her regular regimen. Workup in the hospital consisted of: This a vital signs: Blood pressure of 137/79, heart rate of 80, respiratory of 18, temperature of 97.0 Fahrenheit oral and pulse ox of 95% at room air. She had standard CT of the head and the cervical spine but there is no images and that I see in the system. I see is a report. CT of the head is reported as normal. CT of the cervical spine is reported as moderate to severe degenerative changes in the cervical spine. No acute fracture or spine stenosis is seen. There are varying degree of neural , no narrowing. In the bodies reported as severe disc space narrowing with endplate the sclerosis and 4 mm posterior disc marginal osteophyte formation at C5-C6. While C6 -C7 moderate loss of discheight at C6- C7 and C7-T1 with no spinal stenosis. EKG is reported as wide QRS rhythm. Left axis deviation. Right bundle branch block. Inferior infarct, age undetermined. Anterolateral infarct, age undetermined. Abnormal EKG. Of note the patient was seen by Dr. Drake, neuro-hospitalist on 02/28/2020 for lower extremity numbness. For the atrial fibrillation and for her cardiac risk factor patient is on Apixaban 5 mg 1 tablet twice a day as well as she is on asp irin 81 mg. As well as she is on Lipitor [address] Drake ordered vitamin B12 which was 1409 which is above normal which is considered normal. Her hemoglobin A1c in February 2020 is 7.1 and a normal is between 4-6. Folate in February 2020 was 60.5 which is considered normal. Patient had the an EEG 04/29/2014 her syncope and collapse then was able to retrieve the report from our system and was reported as normal and it was a read by Dr. Lubin She had a sleep study in 02/22/[address] Cleveland and he felt that the patient had mild obstructive sleep apnea. He felt that the patient has periodic limb movements/restless leg syndrome. And he reported that that she was treated with Klonopin 1 mg with significant drop in the periodic limb movement and these periodic limb movements were not associated with arousal. 13 did not feel like the patient needed the CPAP at this point of time. He recommended to continue Klonopin. He also recommended that sleep hygiene measures as well as a rel axation technique and cognitive behavioral therapy. Review of Systems Review of system: The 12 point system was reviewed and apparent positive and negative per HPI. Past Medical History Past Medical History: Atrial Fibrillation, Coronary Artery Disease (CAD), Cancer, Chest Pain / Angina, Diabetes Mellitus, GERD/Reflux, Hyperlipidemia, Hypertension, Osteoarthritis (OA), Sleep Apnea/CPAP/BIPAP, Thyroid Disorder Additional Past Medical History / Comment(s): skin cancer, restless leg sy ndrome, varicose veins, IBS, History of Any Multi-Drug Resistant Organisms: None Reported Past Surgical History: Adenoidectomy, Appendectomy, Breast Surgery, Cholecystectomy, Heart Catheterization With Stent, Hysterectomy, Orthopedic Surgery, Pacemaker, Tonsillectomy Additional Past Surgical History / Comment(s): walt cataract, 3 stents, partial thyroidectomy, rt shoulder rotator cuff, walt breast biopsy, metal clip in rt b reast Past Anesthesia/Blood Transfusion Reactions: No Reported Reaction Date of Last Stent Placement:: 1998 Type of Cardiac Device: Permanent Pacemaker, Unknown Device Placement Date:: 2014 Past Psychological History: Anxiety Smoking Status: Never smoker Past Alcohol Use History: Occasional Additional Past Alcohol Use History / Comment(s): The patient was a smoker briefly as a kid. She drinks alcohol occasionally. Past Drug Use History: None Reported - Past Family History Mother Additional Family Medical History / Comment(s): Mother at age 76 from massive stroke. Brother(s) Additional Family Medical History / Comment(s): The patient had a total of 3 brothers. One brother from melanoma. One brother is with history of coronary artery disease status post CABG. One brother has from colon cancer with history of coronary artery disease. Patient does not have any sisters. Daughter(s) Family Medical History: No Reported History (Healthy 1 daughter) Son(s) History Unknown: Yes (Healthy 3 sons) Additional Family Medical History / Comment(s): Patient has 3 sons and 1 daughter. One son has history of coronary artery disease, second son has history of AICD. Patient has 1 son and 1 daughter with no major medical problems. Father Additional Family Medical History / Comment(s): Father at age 59 from a myocardial infarction. Medications and Allergies Home Medications Medication Instructions Recorded Confirmed Type Apixaban [Eliquis] 5 mg PO BID 04/19/17 08/03/20 History Ascorbic Acid [Vitamin C] 500 mg PO DAILY PRN 04/19/17 08/03/20 History Cholecalciferol [Vitamin D3 (25 3,000 unit PO DAILY 04/19/17 08/03/20 History Mcg = 1000 Iu)] glipiZIDE XL [Glucotrol XL] 2.5 mg PO DAILY 04/19/17 08/03/20 History Levothyroxine Sodium [Synthroid] 75 mcg PO DAILY 05/26/17 08/03/20 History Estradiol 0.05MG/24Hr Biwkptch 1 patch TRANSDERM SUWE 01/13/19 08/03/20 History [Vivelle-Dot 0.05 MG] Isosorbide Mononitrate ER [Imdur] 60 mg PO DAILY tab.er.24h 01/13/19 08/03/20 Rx traMADol HCL [Ultram] 50 mg PO BID PRN 01/13/19 08/03/20 History Atorvastatin [Lipitor] 20 mg PO HS 05/09/19 08/03/20 History Isosorbide Mononitrate ER [Imdur] 90 mg PO HS 05/09/19 08/03/20 History Melatonin 10 mg PO HS 05/09/19 08/03/20 History Spironolactone [Aldactone] 25 mg PO DAILY PRN 05/09/19 08/03/20 History ALPRAZolam [Xanax] 0.25 mg PO BID PRN 09/17/19 08/03/20 History hydrALAZINE HCL [Apresoline] 100 mg PO Q8H 09/17/19 08/03/20 History Metoprolol Tartrate [Lopressor] 100 mg PO TID 02/27/20 08/03/20 History Gabapentin [Neurontin] 100 mg PO BID PRN 06/01/20 08/03/20 History Loperamide [Imodium] 2 mg PO DAILY PRN 06/01/20 08/03/20 History diphenhydrAMINE [Benadryl] 25 mg PO DAILY PRN 06/01/20 08/03/20 History cloNIDine HCL [Catapres] 0.2 mg PO BID #60 tab 06/02/20 08/03/20 Rx cloNIDine HCL [Catapres] 0.1 mg PO TID PRN 06/16/20 08/03/20 History Furosemide [Lasix] 20 mg PO Q48H 07/05/20 08/03/20 History Aspirin 81 mg PO BID #0 chew 07/07/20 08/03/20 Rx Famotidine [Pepcid] 20 mg PO BID #60 tablet 07/07/20 08/03/20 Rx Zinc Sulfate [Orazinc] 220 mg PO DAILY cap 07/07/20 08/03/20 Rx Albuterol Inhaler [Ventolin Hfa 2 puff INHALATION RT-QID PRN 08/02/20 08/03/20 History Inhaler] Nitroglycerin Sl Tabs [Nitrostat] 0.4 mg SL Q5M PRN 08/02/20 08/03/20 History Allergies Allergy/AdvReac Type Severity Reaction Status Date / Time JORGITO Inhibitors Allergy Severe Swelling Verified 08/03/20 09:05 cortisone Allergy Severe Rash/Hives, Verified 08/03/20 09:05 high BP Calcium Channel Blocking AdvReac SORES IN Verified 08/03/20 09:05 Agent Dilt MOUTH dust,trees Allergy Itching Uncoded 08/03/20 09:05 Physical Examination - Vital Signs Vital Signs: Vital Signs Temp Pulse Pulse Resp BP BP Pulse Ox 08/03/20 06:27 19 08/03/20 05:26 97.7 F 62 19 167/60 95 08/03/20 04:46 97.0 F L 62 18 148/81 96 08/03/20 04:00 64 18 97 08/03/20 03:00 64 18 96 08/03/20 02:22 97.0 F L 80 18 137/79 95 Intake and Output 08/02/20 08/03/20 08/03/20 22:59 06:59 14:59 Other: # Voids 1 Weight 87.997 kg GENERAL: The patient is lying in bed and is not in acute distress. HENT: Normocephalic. Old scar over the middle of anterior of nose from a fall. CHEST: The heart rate is regular rate rhythm. No murmurs to auscultation. LUNG: Clear to auscultation bilaterally no wheezing noted throughout. Not labored breathing. ABDOMEN/GI: Bowel sounds present in all 4 quadrants. No tenderness to palpation throughout. NEUROLOGICAL: Higher mental function: The patient is awake, alert, oriented to self, place and time. Patient is following commands. No aphasia and no neglect. Cranial nerves: Gait: Walking with walker and her neck was slightly looking down upon walking but otherwise normal walk. The pupils are round, equal and reactive to light. Visual mendez are full to confrontation throughout. Extraocular movement is intact no nystagmus is noted. Facial sensation is normal to touch throughout. The facial strength is normal throughout. Hearing is normal bilaterally to hand rub. Tongue is midline and moved [id number] without any difficulty. No dysarthria is noted. Shoulder shrug is normal bilaterally. Motor: The strength is 5 over 5 throughout. Normal tone and bulk. Cerebellum: Normal finger to nose bilaterally. Sensation: Sensation is normal to touch throughout. Reflexes (right/left): 2+ throughout except ankles 1+ bilaterally. Plantars are downgoing bilaterally. Results AST of 30, ALT of 37. TSH of 3.30 which is normal. Urinalysis is clear, yellow, urine nitrite is positive. Leukocyte esterase is negative, urine white blood cell is 1, urine bacteria was rare. - Laboratory Findings CBC and BMP: 08/03/20 03:42 08/03/20 03:42 Abnormal Lab Findings: Abnormal Labs 08/03/20 08/03/20 03:42 03:42 Sodium 135 L BUN 25 H Glucose 172 H ALT 37 H Total Protein 5.9 L Albumin 3.3 L Urine Nitrite Positive H Urine Bacteria Rare H Urine Mucus Rare H Assessment and Plan Assessment: This is an 89-year-old woman with multiple medical problems that presented to the emergency department on 08/03/2020 for recurrent falls. She would sleep and then when she wakes up she finds herself on the floor. Patient had an EEG in 2013 for the similar episode and was reported as normal. According to her she also had an EEG about [address] Hair's office and she thinks she was told normal. She had a sleep study in February 2019 and was felt that she had mild obstructive sleep apnea. She was also felt that she had periodic limb movements/restless leg syndrome and to continue the Klonopin. Repeated episodes of falls (finding herself on the floor or waking up from bed prior to fall but no falls or loss of consciousness during the day. Denies bowel or urinary incontinence or tongue bite). These episode are unlikely seizure. Possibly sleep disorder problem. Cervical spondylosis (moderate to severe 5-7) Restless leg syndrome---refuses to take Klonopin Mild obstructive sleep apnea not on CPAP or BiPAP Atrial fibrillation Coronary artery disease Uncontrolled hypertension Diabetes mellitus Hyperlipidemia Hypothyroidism Plan: I ordered a routine EEG. I will not start the patient on antiepileptic drug unless there is epileptic form discharges or seizure on the EEG. In my opinion I think the patient will benefit from long-term EEG as an outpatient or an epilepsy monitoring unit (EMU) to rule out any seizures. Consider repeating sleep study. I notified the nurse to do orthostatic with the blood pressure and heart rate. CT angiography of the neck is ordered by the primary team. PT and OT are consulted. Recommend that cardiac monitoring. She had a 2-D echo on 06/01/2020 and it's reported as moderate concentric left ventricle atrophy. Ejection fraction of 50-55%. Left atrium is moderately dilated. Moderate mitral annular EFFUSION present. Moderate mitral regurgitation is present. Moderate tricuspid regurgitation present. There is moderate pulmonary hypertension. Regarding the cervical spondylosis, the patient refuses any further workup or orthopedic consultation since she doesn't want any intervention. Regarding the restless leg syndrome, the patient does not 1 a be on the Klonopin or any medication since she stated that she is on so many medications as it is. Regarding the patient using the aspirin in addition to her Eliquis and aspirin 81 mg when she has pain, I notified her to avoid using additional aspirin on top of her regimen to avoid any risk of bleed. Patient lives home alone, I notified her that I recommend for her to live with somebody or have somebody live with her. Oral consider going to the facet orally where she is independent but has supervision. She refuses and she doesn't want to do any of that. I notified him consider that she's can have a bleed from these falls and I would like some supervision but she was adamant living by herself at home. Patient needs to follow-up with a neurologist within 1-2 weeks upon discharge. Patient needs to follow up with a assistant pressman and kick press setter as an outpatient. Regarding the rest of the medical management will defer to the primary team. The plan was discussed with the patient's nurse. Thank you for the consultation. Olivier Castaneda M.D. Neuro-hospitalist Time with Patient: Greater than 30
[2020-08-03] MEDS ORDERED: SPIRONOLACTONE 25 MG TAB PO PRN (12:28)
[2020-08-03] MEDS ORDERED: ALBUTEROL HFA INHALER INHALATION PRN (12:28)
[2020-08-03] MEDS ORDERED: ASCORBIC ACID 500 MG TAB PO PRN (12:28)
[2020-08-03] MEDS ORDERED: GABAPENTIN 100 MG CAP PO PRN (12:28)
[2020-08-03] MEDS ORDERED: ALPRAZolam 0.25 MG TAB PO PRN (12:28)
[2020-08-03] MEDS ORDERED: LOPERAMIDE 2 MG CAP PO PRN (12:28)
[2020-08-03] MEDS ORDERED: cloNIDine HCL 0.1 MG TAB PO PRN (12:48)
[2020-08-03] MEDS: hydrALAZINE HCL 50 MG TAB PO SCH ×2 (14:02→21:11)
--- NOTE | 2020-08-03 14:26 | EEG ---
ELECTROENCEPHALOGRAM REPORT DATE OF SERVICE: 08/03/2020. CLINICAL HISTORY: This is an 89-year-old woman who presented to the emergency department because of repeated episodes of falls. This video EEG is obtained to evaluate for seizure and epileptiform activity. RELEVANT MEDICATION: The patient is not on any antiepileptic drugs. EEG TYPE: A routine 21 channel EEG is performed with video using the 10/20 electrode placement system. DESCRIPTION: Wakefulness is only obtained. During wakefulness, there is a posterior dominant rhythm of low to moderate voltage, reactive, well modulated, of 8-8.5 hertz over the bilateral hemisphere. There is no physiological stage II sleep. There is occasional diffuse myogenic artifact over bilateral hemisphere. INTERICTAL AND ICTAL: None. ACTIVATION PROCEDURE: Photic stimulation did evoke a posterior drivers response over bilateral posterior quadrant at low flash frequencies. There is no abnormality seen with the photic stimulation. Hyperventilation was not done. CLINICAL INTERPRETATION: This is a normal awake routine EEG. There are no focal slowing, epileptiform discharges or seizure seen during the study. Clinical correlation is recommended. MMKIRSTIE / FRANCESCAN: [id number] / MTDD
[2020-08-03] MEDS ORDERED: APIXABAN 5 MG TAB PO ONE (14:52)
[2020-08-03] MEDS ORDERED: NITROGLYCERIN SL TABS 0.4 MG TAB SUBLINGUAL PRN (14:52)
[2020-08-03] MEDS: METOPROLOL TARTRATE 50 MG TAB PO SCH ×2 (15:15→21:11)
[2020-08-03] MEDS: traMADol 50 MG TAB PO PRN (15:16)
[2020-08-03] MEDS ORDERED: MELATONIN 5 MG TABLET PO SCH (21:00)
[2020-08-03] MEDS ORDERED: ISOSORBIDE MONONITRATE ER 30 MG TAB.ER.24H PO SCH (21:00)
[2020-08-03] MEDS ORDERED: ATORVASTATIN 20 MG TAB PO SCH (21:00)
[2020-08-03] MEDS: APIXABAN 5 MG TAB PO SCH (21:11)
[2020-08-03] MEDS: FAMOTIDINE 20 MG TAB PO SCH (21:11)
[2020-08-03] MEDS: cloNIDine HCL 0.2 MG TAB PO SCH (21:16)
--- NOTE | 2020-08-03 22:13 | CT ---
EXAM: CT Angiography Neck With Intravenous Contrast CLINICAL HISTORY: ITS.REASON CT Reason: syncope TECHNIQUE: Axial computed tomographic angiography images of the neck with intravenous contrast. CTDI is 284.3 mGy and DLP is 401 mGy-cm. This CT exam was performed using one or more of the following dose reduction techniques: automated exposure control, adjustment of the mA and/or kV according to patient size, and/or use of iterative reconstruction technique. MIP reconstructed images were created and reviewed. COMPARISON: Correlated to CT imaging of the head performed earlier today. FINDINGS: VASCULATURE: Right common carotid artery: Good flow within the common carotid arteries. No significant stenosis. No dissection or occlusion. Right internal carotid artery: Good flow within the internal carotid arteries. Right external carotid artery: Unremarkable. No occlusion. Right vertebral artery: The vertebral arteries are unremarkable bilaterally. No significant stenosis. No dissection or occlusion. Left common carotid artery: See above. Left internal carotid artery: There is approximate 30-40% luminal stenosis of the origin of the left internal carotid artery. Left external carotid artery: Unremarkable. No occlusion. Left vertebral artery: See above. Other vasculature: Atherosclerotic disease of the thoracic aortic arch. Atherosclerotic disease of the carotid bifurcations. NECK: Bones/joints: See above. Soft tissues: Unremarkable as visualized. No mass. CAROTID STENOSIS REFERENCE USING NASCET CRITERIA: % ICA stenosis = (1 - narrowest ICA diameter/diameter of distal cervical ICA) x 100. Mild - <50% stenosis. Moderate - 50-69% stenosis. Severe - 70-94% stenosis. Near occlusion - 95-99% stenosis. Occluded - 100% stenosis. IMPRESSION: 1. Atherosclerotic disease most notably at the carotid bifurcations. 2. 30-40% luminal stenosis of the origin of the left internal carotid artery. 3. Duplex Doppler imaging of the carotid systems is advised to follow-up for further assessment.
[2020-08-04] MEDS: hydrALAZINE HCL 50 MG TAB PO SCH (06:10)
[2020-08-04] MEDS ORDERED: LEVOTHYROXINE 75 MCG TAB PO SCH (06:30)
[2020-08-04] MEDS: cloNIDine HCL 0.2 MG TAB PO SCH (07:47)
[2020-08-04] MEDS: FAMOTIDINE 20 MG TAB PO SCH (07:47)
[2020-08-04] MEDS: METOPROLOL TARTRATE 50 MG TAB PO SCH (07:47)
[2020-08-04] MEDS: APIXABAN 5 MG TAB PO SCH (07:48)
[2020-08-04 08:07] VITALS: BP 143/91; PULSE 85; RESP 18; TEMP 97.5
[2020-08-04] MEDS ORDERED: ISOSORBIDE MONONITRATE ER 60 MG TAB.ER.24H PO SCH (09:00)
[2020-08-04] MEDS ORDERED: FUROSEMIDE 20 MG TAB PO SCH (09:00)
[2020-08-04] MEDS ORDERED: CHOLECALCIFEROL 1,000 UNIT TAB PO SCH (09:00)
[2020-08-04] MEDS ORDERED: ZINC SULFATE 220 MG CAP PO SCH (09:00)
[2020-08-04] MEDS: traMADol 50 MG TAB PO PRN (09:46)
[2020-08-04] MEDS ORDERED: traZODone HCL 50 MG TAB PO SCH (10:15)
--- NOTE | 2020-08-13 21:59 | P.DS ---
Providers Date of admission: 08/03/20 03:54 Expected date of discharge: 08/04/20 Attending physician: Karlo Locke Consults: 08/03/20 03:54 Consult Physician Routine Consulting Provider: Olivier Castaneda Consult Reason/Comments: falls Do you want consulting provider notified?: Yes Primary care physician: Karlo Locke [facility] Course: Chief Complaint: Syncope, Possible atypical seizure, possible narcolepsy, 89-year-old one of my office patient with past medical history of atherosclerotic heart disease, A. fib, recurrent chest pain, obstructive sleep apnea not using CPAP or BiPAP lately, hypertension, noncontrolled hypertension has been seen cardiology and nephrology on regular basis fourth. Patient has been seen at the emergency department at [facility] few times in the last week with multiple falls not well explained she claimed that she fell out of bed does not remember why then she had lower mattress and still fell out of her mattress and found herself controlling in weird space in the bedroom. She fell yesterday and was a demurs department for a few hours had small cut over her nose her study was negative was sent home. She presented again to the emergency department with another fall and explain she woke up and found herself on the floor ended up coming to the emergency department all her testing came back to be negative her blood pressure was slightly elevated at the time. Patient was hospitalized will be seen neurology further testing such as EEG will be done reviewing her records from February she had significant stenosis of the left carotid artery was over 70% did not require any intervention at the time patient will be going for CT of the neck along with carotid ultrasound also we will have neurology to see her and have an EEG and patient will be highly recommended to go back to do another sleep study and to meet with her sleep physician to determine on some sort of CPAP device can control some of the symptom happening at night and protect her from having the event ongoing either related to narcolepsy or sleep apnea. Review of Systems CONSTITUTIONAL: Well-developed no acute respiratory distress. EYES: No icterus sclerae, no conjunctivitis. EARS, NOSE, MOUTH, THROAT, and FACE: No sore throat, lymphadenopathy, carotid bruits or deformity. Small cut on the bridge of her nose with no bleed no sign of fracture RESPIRATORY: No SOB cough or wheezes. CARDIOVASCULAR: No CP, Palpitation, PND, Orthopnea, or angina. Mild shortness of breath and noncontrolled blood pressure still but better on medication. GASTROINTESTINAL: No Abd pain, Nausea or vomiting, no Diarrhea or constipation, No GI Bleed, no distention or masses. GENITOURINARY: Negative for Hematuria or UTI, no kidney stones. INTEGUMENT/BREAST: Negative for any muscular injury with mild osteoarthritis.. HEMATOLOGIC/LYMPHATIC: Negative for bleed or purpura. MUSCULOSKELTAL: Negative for Myalgia or arthralgia. NEURLOGICAL: No blurred vision dizziness or abnormality. Question of seizure and multiple syncope in the last few weeks not explained. BEHAVIORAL/PSYCH: Negative. ENDOCRINE: Negative. Medications and Allergies Home Medications Medication Instructions Recorded Confirmed Type Apixaban [Eliquis] 5 mg PO BID 04/19/17 08/03/20 History Ascorbic Acid [Vitamin C] 500 mg PO DAILY PRN 04/19/17 08/03/20 History Cholecalciferol [Vitamin D3 (25 3,000 unit PO DAILY 04/19/17 08/03/20 History Mcg = 1000 Iu)] glipiZIDE XL [Glucotrol XL] 2.5 mg PO DAILY 04/19/17 08/03/20 History Levothyroxine Sodium [Synthroid] 75 mcg PO DAILY 05/26/17 08/03/20 History Estradiol 0.05MG/24Hr Biwkptch 1 patch TRANSDERM SUWE 01/13/19 08/03/20 History [Vivelle-Dot 0.05 MG] Isosorbide Mononitrate ER [Imdur] 60 mg PO DAILY tab.er.24h 01/13/19 08/03/20 Rx traMADol HCL [Ultram] 50 mg PO BID PRN 01/13/19 08/03/20 History Atorvastatin [Lipitor] 20 mg PO HS 05/09/19 08/03/20 History Isosorbide Mononitrate ER [Imdur] 90 mg PO HS 05/09/19 08/03/20 History Melatonin 10 mg PO HS 05/09/19 08/03/20 History Spironolactone [Aldactone] 25 mg PO DAILY PRN 05/09/19 08/03/20 History ALPRAZolam [Xanax] 0.25 mg PO BID PRN 09/17/19 08/03/20 History hydrALAZINE HCL [Apresoline] 100 mg PO Q8H 09/17/19 08/03/20 History Metoprolol Tartrate [Lopressor] 100 mg PO TID 02/27/20 08/03/20 History Gabapentin [Neurontin] 100 mg PO BID PRN 06/01/20 08/03/20 History Loperamide [Imodium] 2 mg PO DAILY PRN 06/01/20 08/03/20 History diphenhydrAMINE [Benadryl] 25 mg PO DAILY PRN 06/01/20 08/03/20 History cloNIDine HCL [Catapres] 0.2 mg PO BID #60 tab 06/02/20 08/03/20 Rx cloNIDine HCL [Catapres] 0.1 mg PO TID PRN 06/16/20 08/03/20 History Furosemide [Lasix] 20 mg PO Q48H 07/05/20 08/03/20 History Aspirin 81 mg PO BID #0 chew 07/07/20 08/03/20 Rx Famotidine [Pepcid] 20 mg PO BID #60 tablet 07/07/20 08/03/20 Rx Zinc Sulfate [Orazinc] 220 mg PO DAILY cap 07/07/20 08/03/20 Rx Albuterol Inhaler [Ventolin Hfa 2 puff INHALATION RT-QID PRN 08/02/20 08/03/20 History Inhaler] Nitroglycerin Sl Tabs [Nitrostat] 0.4 mg SL Q5M PRN 08/02/20 08/03/20 History Allergies Allergy/AdvReac Type Severity Reaction Status Date / Time JORGITO Inhibitors Allergy Severe Swelling Verified 08/03/20 09:05 cortisone Allergy Severe Rash/Hives, Verified 08/03/20 09:05 high BP Calcium Channel Blocking AdvReac SORES IN Verified 08/03/20 09:05 Agent Dilt MOUTH dust,trees Allergy Itching Uncoded 08/03/20 09:05 Physical Exam Vitals: Vital Signs Temp Pulse Pulse Resp BP BP Pulse Ox 08/03/20 06:27 19 08/03/20 05:26 97.7 F 62 19 167/60 95 08/03/20 04:46 97.0 F L 62 18 148/81 96 08/03/20 04:00 64 18 97 08/03/20 03:00 64 18 96 08/03/20 02:22 97.0 F L 80 18 137/79 95 Intake and Output 08/02/20 08/03/20 08/03/20 22:59 06:59 14:59 Other: # Voids 1 Weight 87.997 kg General Appearance: Alert, cooperative, no distress, appears stated age. Neck HEENT: Supple, no lymphadenopathy, no thyroid enlargement, no carotid bruits. Smaller bruises and cuts on the bridge of her nose with no fracture Lungs: Clear to auscultation without crackles or wheezes no rhonchi, no deformity. Chest Wall: Decrease expansion with deep inspiration no tenderness and no deformity was found on exam, no costochondral pain or discomfort. Heart: Irregular rate and rhythm, S1, S2 positive S3 positive systolic murmur. Back: Symmetric, no curvature, ROM normal, no CVA tenderness. Abdomen: Soft, non-tender, bowel sounds active all four quadrants, no masses, no organomegaly. Extremities: Extremities normal, atraumatic, no cyanosis or edema. Smaller bruises on the lower extremity. Pulses: 2+ and symmetric. Skin: Skin color, texture, tugor normal, no rashes or lesions. Neurologic: Alert oriented x3 cranial nerves II through XII intact, no motor deficit, significant abnormal balance and gait. Results CBC & Chem 7: 08/03/20 03:42 08/03/20 03:42 Labs: Abnormal Lab Results - Last 24 Hours (Table) 08/03/20 08/03/20 Range/Units 03:42 03:42 Sodium 135 L (137-145) mmol/L BUN 25 H (7-17) mg/dL Glucose 172 H (74-99) mg/dL ALT 37 H (4-34) U/L Total Protein 5.9 L (6.3-8.2) g/dL Albumin 3.3 L (3.5-5.0) g/dL Urine Nitrite Positive H (Negative) Urine Bacteria Rare H (None) /hpf Urine Mucus Rare H (None) /hpf Thrombosis Risk Factor Assmnt - DVT/VTE Prophylaxis DVT/VTE Prophylaxis: Pharmacologic Prophylaxis ordered, Mechanical Prophylaxis ordered - Choose All That Apply Other Risk Factors: Yes Each Risk Factor Represents 3 Points: Age 75 years or older Thrombosis Risk Factor Assessment Total Risk Factor Score: 3 Thrombosis Risk Factor Assessment Level: Moderate Risk Assessment and Plan Assessment: 1 multiple syncope: Not clear etiology could be seizure activity, could be related to sleep apnea with hypoxia not using CPAP, still can be related to narcolepsy, could be extrapyramidal movement causing patient to fell out of bed in the middle of the night and her dream cycle. Also could be side effect of the new blood pressure medication was started recently by her rubber grinder Anthony. Patient be seen neurology, carotid ultrasound, CT of the neck will be done, EEG and further management including MRI of the brain order by neurology if needed. 2 multiple falls: Mostly at nighttime most likely related to lack of control happen either related to seizure activity of sleep apnea, patient need to be watch more carefully will be nice to be able to videotape patient and her sleep to see what event staking and affect such thing can be done in one of the sleep Center or one of the ambulatory seizure center in one of the tertiary center. 3 noncontrolled hypertension: Much better so far with the last medication done by rubber grinder. 4 recurrent angina mostly Prinzmetal angina: Patient has been on isosorbide mononitrate along with calcium channel william and still seen her rubber grinder on regular basis. 5 type 2 diabetes: Has been on oral hypoglycemic agent Accu-Chek with sliding scales coverage will be done. 6 Atrial fibrillation: Patient remain on beta william and still on anticoagulation. 7 Hyperlipidemia: Remain on atorvastatin 20 mg daily. 8 diastolic congestive heart failure: Well preserved ejection fraction, patient remain on isosorbide, furosemide, metoprolol and spironolactone continue hydralazine as well. 9 hypothyroidism: Remain on levothyroxine 75 g daily. 10 chronic history of colitis: Remain on Imodium on an as-needed basis. 11 chronic peripheral neuropathy: Mostly diabetic has been on gabapentin 100 mg twice a day. Pt was stable to be Discharged on 08/04/2020. Patient Condition at Discharge: Good Plan - Discharge Summary New Discharge Prescriptions: New traZODone HCL [Desyrel] 50 mg PO HS #30 tab Cefuroxime [Ceftin] 250 mg PO BID 3 Days #6 tab traMADol HCl [Ultram] 50 mg PO Q6HR PRN 3 Days #12 tab PRN Reason: Mild Pain Continue Cholecalciferol [Vitamin D3 (25 Mcg = 1000 Iu)] 3,000 unit PO DAILY Ascorbic Acid [Vitamin C] 500 mg PO DAILY PRN PRN Reason: Cold Symptoms glipiZIDE XL [Glucotrol XL] 2.5 mg PO DAILY Apixaban [Eliquis] 5 mg PO BID Levothyroxine Sodium [Synthroid] 75 mcg PO DAILY traMADol HCL [Ultram] 50 mg PO BID PRN PRN Reason: Pain Estradiol 0.05MG/24Hr Biwkptch [Vivelle-Dot 0.05 MG] 1 patch TRANSDERM SUWE Isosorbide Mononitrate ER [Imdur] 60 mg PO DAILY tab.er.24h Spironolactone [Aldactone] 25 mg PO DAILY PRN PRN Reason: Edema Melatonin 10 mg PO HS Atorvastatin [Lipitor] 20 mg PO HS Isosorbide Mononitrate ER [Imdur] 90 mg PO HS hydrALAZINE HCL [Apresoline] 100 mg PO Q8H ALPRAZolam [Xanax] 0.25 mg PO BID PRN PRN Reason: Anxiety Metoprolol Tartrate [Lopressor] 100 mg PO TID Loperamide [Imodium] 2 mg PO DAILY PRN PRN Reason: Diarrhea Gabapentin [Neurontin] 100 mg PO BID PRN PRN Reason: nerve/ leg pain diphenhydrAMINE [Benadryl] 25 mg PO DAILY PRN PRN Reason: Allergic Reaction cloNIDine HCL [Catapres] 0.2 mg PO BID #60 tab cloNIDine HCL [Catapres] 0.1 mg PO TID PRN PRN Reason: systolic BP >160 Furosemide [Lasix] 20 mg PO Q48H Zinc Sulfate [Orazinc] 220 mg PO DAILY cap Aspirin 81 mg PO BID #0 chew Famotidine [Pepcid] 20 mg PO BID #60 tablet Albuterol Inhaler [Ventolin Hfa Inhaler] 2 puff INHALATION RT-QID PRN PRN Reason: Shortness Of Breath Nitroglycerin Sl Tabs [Nitrostat] 0.4 mg SL Q5M PRN PRN Reason: Chest Pain Discharge Medication List Apixaban [Eliquis] 5 mg PO BID 04/19/17 [History] Ascorbic Acid [Vitamin C] 500 mg PO DAILY PRN 04/19/17 [History] Cholecalciferol [Vitamin D3 (25 Mcg = 1000 Iu)] 3,000 unit PO DAILY 04/19/17 [History] glipiZIDE XL [Glucotrol XL] 2.5 mg PO DAILY 04/19/17 [History] Levothyroxine Sodium [Synthroid] 75 mcg PO DAILY 05/26/17 [History] Estradiol 0.05MG/24Hr Biwkptch [Vivelle-Dot 0.05 MG] 1 patch TRANSDERM SUWE 01/13/19 [History] Isosorbide Mononitrate ER [Imdur] 60 mg PO DAILY tab.er.24h 01/13/19 [Rx] traMADol HCL [Ultram] 50 mg PO BID PRN 01/13/19 [History] Atorvastatin [Lipitor] 20 mg PO HS 05/09/19 [History] Isosorbide Mononitrate ER [Imdur] 90 mg PO HS 05/09/19 [History] Melatonin 10 mg PO HS 05/09/19 [History] Spironolactone [Aldactone] 25 mg PO DAILY PRN 05/09/19 [History] ALPRAZolam [Xanax] 0.25 mg PO BID PRN 09/17/19 [History] hydrALAZINE HCL [Apresoline] 100 mg PO Q8H 09/17/19 [History] Metoprolol Tartrate [Lopressor] 100 mg PO TID 02/27/20 [History] Gabapentin [Neurontin] 100 mg PO BID PRN 06/01/20 [History] Loperamide [Imodium] 2 mg PO DAILY PRN 06/01/20 [History] diphenhydrAMINE [Benadryl] 25 mg PO DAILY PRN 06/01/20 [History] cloNIDine HCL [Catapres] 0.2 mg PO BID #60 tab 06/02/20 [Rx] cloNIDine HCL [Catapres] 0.1 mg PO TID PRN 06/16/20 [History] Furosemide [Lasix] 20 mg PO Q48H 07/05/20 [History] Aspirin 81 mg PO BID #0 chew 07/07/20 [Rx] Famotidine [Pepcid] 20 mg PO BID #60 tablet 07/07/20 [Rx] Zinc Sulfate [Orazinc] 220 mg PO DAILY cap 07/07/20 [Rx] Albuterol Inhaler [Ventolin Hfa Inhaler] 2 puff INHALATION RT-QID PRN 08/02/20 [History] Nitroglycerin Sl Tabs [Nitrostat] 0.4 mg SL Q5M PRN 08/02/20 [History] Cefuroxime [Ceftin] 250 mg PO BID 3 Days #6 tab 08/04/20 [Rx] traMADol HCl [Ultram] 50 mg PO Q6HR PRN 3 Days #12 tab 08/04/20 [Rx] traZODone HCL [Desyrel] 50 mg PO HS #30 tab 08/04/20 [Rx] Follow up Appointment(s)/Referral(s): Karlo Locke MD [Primary Care Provider] - 1-2 days Patient Instructions/Handouts: Fall Prevention (DC) Discharge Disposition: HOME SELF-CARE
== END 2020-08-04 10:31 | disposition home or self-care (01) ==
LOC: EC 02:09 → 5NMEDONC 03:54
PROVIDERS: ADMIT Internal Medicine Geriatric Medicine; ATTEND Internal Medicine Geriatric Medicine
DX: R53.1 Weakness (principal); W19.XXXA Unspecified fall, initial encounter; S09.90XA Unspecified injury of head, initial encounter; I25.111 Atherosclerotic heart disease of native coronary artery with angina pectoris with documented spasm; I11.0 Hypertensive heart disease with heart failure; I50.30 Unspecified diastolic (congestive) heart failure; R29.6 Repeated falls; I48.91 Unspecified atrial fibrillation; I45.10 Unspecified right bundle-branch block; I25.2 Old myocardial infarction; R07.9 Chest pain, unspecified; G47.33 Obstructive sleep apnea (adult) (pediatric); Z91.19 Patient's noncompliance with other medical treatment and regimen; R55 Syncope and collapse; Z95.0 Presence of cardiac pacemaker; E11.42 Type 2 diabetes mellitus with diabetic polyneuropathy; G25.81 Restless legs syndrome; Z95.5 Presence of coronary angioplasty implant and graft; E78.5 Hyperlipidemia, unspecified; E03.9 Hypothyroidism, unspecified; Z91.14 Patient's other noncompliance with medication regimen; M48.02 Spinal stenosis, cervical region; M25.78 Osteophyte, vertebrae; G95.89 Other specified diseases of spinal cord; M47.812 Spondylosis without myelopathy or radiculopathy, cervical region; I83.90 Asymptomatic varicose veins of unspecified lower extremity; F41.9 Anxiety disorder, unspecified; K58.9 Irritable bowel syndrome, unspecified; Z90.49 Acquired absence of other specified parts of digestive tract; Z90.710 Acquired absence of both cervix and uterus; Z90.89 Acquired absence of other organs; M19.90 Unspecified osteoarthritis, unspecified site; Z85.828 Personal history of other malignant neoplasm of skin; Z98.42 Cataract extraction status, left eye; Z98.41 Cataract extraction status, right eye; Z98.890 Other specified postprocedural states; Z87.891 Personal history of nicotine dependence; Z82.3 Family history of stroke; Z80.8 Family history of malignant neoplasm of other organs or systems; Z82.49 Family history of ischemic heart disease and other diseases of the circulatory system; Z80.0 Family history of malignant neoplasm of digestive organs; Z79.890 Hormone replacement therapy; Z79.01 Long term (current) use of anticoagulants; Z79.84 Long term (current) use of oral hypoglycemic drugs; Z79.82 Long term (current) use of aspirin; Z79.899 Other long term (current) drug therapy; Z88.8 Allergy status to other drugs, medicaments and biological substances; Z91.048 Other nonmedicinal substance allergy status
CPT/HCPCS: 96361 ×2; 96365; 99285; 36415; 95816; 93005; 97161; 83880; 80053; 82550; 83735; 84100; 84443; 84484; 85025; 85610; 85730; 81001; 72170; 71045; 72125; 70450; 70498; G0378 ×2; J0696 ×2; Q9967

== ENCOUNTER 2020-08-04 22:55 | Emergency (ER) | payer MEDICARE ==
[2020-08-04] MEDS ORDERED: DIPH,PERTUS(ACELL)TETVAC-LF 0.5 ML VIAL IM ONE (23:00)
[2020-08-04 23:05] VITALS: RESP 18; TEMP 97.5
--- NOTE | 2020-08-04 23:35 | ED ---
Fall HPI - General Chief Complaint: Fall Stated Complaint: Fall Time Seen by Provider: 08/04/20 23:00 Source: patient, EMS Mode of arrival: EMS - History of Present Illness Initial Comments: This patient is an 89-year-old woman coming to be evaluated after she had a fall tonight. The patient relates that she had been sitting in a chair and was leaning forward to get something, lost her balance and fell forward. She thinks that her head hit the table in front of her. Patient had some bleeding which was bandaged by EMS. She does not believe she had loss of consciousness. Patient denies any other injury. She states that the pain from tonight's fall as where she struck her head. The patient had been admitted to the hospital for having multiple nocturnal falls, but states that this episode is different as she had been awake and sitting in the chair. Again patient denies other injuries. Last tetanus shot had been given the previous week. MD Complaint: fall -: minutes(s) Fall From: chair When Fall Occurred: just prior to arrival Place Fall Occurred: home Loss of Consciousness: none Prolonged Down Time?: no Symptoms Prior to Fall: none Location: head Quality: aching Context: history of frequent falls Associated Symptoms: headache - Related Data Home Medications Medication Instructions Recorded Confirmed Apixaban [Eliquis] 5 mg PO BID 04/19/17 08/03/20 Ascorbic Acid [Vitamin C] 500 mg PO DAILY PRN 04/19/17 08/03/20 Cholecalciferol [Vitamin D3 (25 3,000 unit PO DAILY 04/19/17 08/03/20 Mcg = 1000 Iu)] glipiZIDE XL [Glucotrol XL] 2.5 mg PO DAILY 04/19/17 08/03/20 Levothyroxine Sodium [Synthroid] 75 mcg PO DAILY 05/26/17 08/03/20 Estradiol 0.05MG/24Hr Biwkptch 1 patch TRANSDERM SUWE 01/13/19 08/03/20 [Vivelle-Dot 0.05 MG] traMADol HCL [Ultram] 50 mg PO BID PRN 01/13/19 08/03/20 Atorvastatin [Lipitor] 20 mg PO HS 05/09/19 08/03/20 Isosorbide Mononitrate ER [Imdur] 90 mg PO HS 05/09/19 08/03/20 Melatonin 10 mg PO HS 05/09/19 08/03/20 Spironolactone [Aldactone] 25 mg PO DAILY PRN 05/09/19 08/03/20 ALPRAZolam [Xanax] 0.25 mg PO BID PRN 09/17/19 08/03/20 hydrALAZINE HCL [Apresoline] 100 mg PO Q8H 09/17/19 08/03/20 Metoprolol Tartrate [Lopressor] 100 mg PO TID 02/27/20 08/03/20 Gabapentin [Neurontin] 100 mg PO BID PRN 06/01/20 08/03/20 Loperamide [Imodium] 2 mg PO DAILY PRN 06/01/20 08/03/20 diphenhydrAMINE [Benadryl] 25 mg PO DAILY PRN 06/01/20 08/03/20 cloNIDine HCL [Catapres] 0.1 mg PO TID PRN 06/16/20 08/03/20 Furosemide [Lasix] 20 mg PO Q48H 07/05/20 08/03/20 Albuterol Inhaler [Ventolin Hfa 2 puff INHALATION RT-QID PRN 08/02/20 08/03/20 Inhaler] Nitroglycerin Sl Tabs [Nitrostat] 0.4 mg SL Q5M PRN 08/02/20 08/03/20 Previous Rx's Medication Instructions Recorded Isosorbide Mononitrate ER [Imdur] 60 mg PO DAILY tab.er.24h 01/13/19 cloNIDine HCL [Catapres] 0.2 mg PO BID #60 tab 06/02/20 Aspirin 81 mg PO BID #0 chew 07/07/20 Famotidine [Pepcid] 20 mg PO BID #60 tablet 07/07/20 Zinc Sulfate [Orazinc] 220 mg PO DAILY cap 07/07/20 Cefuroxime [Ceftin] 250 mg PO BID 3 Days #6 tab 08/04/20 traMADol HCl [Ultram] 50 mg PO Q6HR PRN 3 Days #12 tab 08/04/20 traZODone HCL [Desyrel] 50 mg PO HS #30 tab 08/04/20 Allergies Allergy/AdvReac Type Severity Reaction Status Date / Time JORGITO Inhibitors Allergy Severe Swelling Verified 08/04/20 23:04 cortisone Allergy Severe Rash/Hives, Verified 08/04/20 23:04 high BP Calcium Channel Blocking AdvReac SORES IN Verified 08/04/20 23:04 Agent Dilt MOUTH dust,trees Allergy Itching Uncoded 08/04/20 23:04 Review of Systems ROS Statement: Those systems with pertinent positive or pertinent negative responses have been documented in the HPI. ROS Other: All systems not noted in ROS Statement are negative. Constitutional: Denies: fever, chills, weakness Eyes: Denies: eye pain, vision change ENT: Denies: ear pain, hearing loss, epistaxis Respiratory: Denies: cough, dyspnea Cardiovascular: Denies: chest pain, palpitations Gastrointestinal: Denies: abdominal pain, nausea, vomiting Musculoskeletal: Denies: back pain Skin: Denies: rash Neurological: Reports: as per HPI, headache. Denies: weakness, numbness, paresthesias Hematological/Lymphatic: Reports: other (Patient taking eliquis) Past Medical History Past Medical History: Atrial Fibrillation, Coronary Artery Disease (CAD), Cancer, Chest Pain / Angina, Diabetes Mellitus, GERD/Reflux, Hyperlipidemia, Hypertension, Osteoarthritis (OA), Sleep Apnea/CPAP/BIPAP, Thyroid Disorder Additional Past Medical History / Comment(s): skin cancer, restless leg syndrome, varicose veins, IBS, History of Any Multi-Drug Resistant Organisms: None Reported Past Surgical History: Adenoidectomy, Appendectomy, Breast Surgery, Cholecyste ctomy, Heart Catheterization With Stent, Hysterectomy, Orthopedic Surgery, Pacemaker, Tonsillectomy Additional Past Surgical History / Comment(s): walt cataract, 3 stents, partial thyroidectomy, rt shoulder rotator cuff, walt breast biopsy, metal clip in rt breast Past Anesthesia/Blood Transfusion Reactions: No Reported Reaction Date of Last Stent Placement:: 1998 Type of Cardiac Device: Permanent Pacemaker, Unknown Device Placement Date:: 2014 Past Psychological History: Anxiety Smoking Status: Never smoker Past Alcohol Use History: Occasional Past Drug Use History: None Reported - Past Family History Mother Additional Family Medical History / Comment(s): Mother at age 76 from massive stroke. Brother(s) Additional Family Medical History / Comment(s): The patient had a total of 3 brothers. One brother from melanoma. One brother is with history of coronary artery disease status post CABG. One brother has from colon cancer with history of coronary artery disease. Patient does not have any sisters. Daughter(s) Family Medical History: No Reported History (Healthy 1 daughter) Son(s) History Unknown: Yes (Healthy 3 sons) Additional Family Medical History / Comment(s): Patient has 3 sons and 1 daughter. One son has history of coronary artery disease, second son has history of AICD. Patient has 1 son and 1 daughter with no major medical problems. Father Additional Family Medical History / Comment(s): Father at age 59 from a myocardial infarction. General Exam Limitations: no limitations General appearance: alert, in no apparent distress Head exam: Present: normocephalic, other (Scalp laceration left occipital, proximally 3 cm. There is a small hematoma and mild tenderness no obvious bony deformity) Eye exam: Present: normal appearance, PERRL, EOMI. Absent: scleral icterus, conjunctival injection ENT exam: Present: normal oropharynx Neck exam: Present: normal inspection. Absent: tenderness Respiratory exam: Present: normal lung sounds bilaterally. Absent: respiratory distress, wheezes, rales, rhonchi, stridor, chest wall tenderness Cardiovascular Exam: Present: regular rate, normal rhythm, normal heart sounds. Absent: systolic murmur, diastolic murmur, rubs, gallop GI/Abdominal exam: Present: soft. Absent: distended, tenderness, guarding, rebound, rigid, mass Extremities exam: Present: normal inspection, tenderness (There is mild swelling and tenderness left ankle. Mild tenderness right wrist. No obvious deformities.), normal capillary refill. Absent: pedal edema, calf tenderness Back exam: Present: normal inspection. Absent: CVA tenderness (R), CVA tenderness (L), vertebral tenderness Neurological exam: Present: alert, oriented X3, CN II-XII intact. Absent: motor sensory deficit Skin exam: Present: warm, dry, normal color, other (Laceration as above). Absent: rash Course Vital Signs 08/04/20 08/04/20 08/05/20 22:56 23:07 00:03 Temperature 97.5 F L Pulse Rate 80 75 Respiratory 18 18 Rate Blood Pressure 121/74 114/74 O2 Sat by Pulse 98 96 Oximetry 08/05/20 01:48 Temperature Pulse Rate 68 Respiratory 18 Rate Blood Pressure 102/61 O2 Sat by Pulse 98 Oximetry Procedures - Laceration Laceration #1 Consent Obtained: verbal consent Indication: laceration Site: scalp Size (cm): 3 Description: linear Depth: simple, single layer Anesthetic Used: lidocaine 1% Anesthesia Technique: local infiltration Type of Sutures: other (Loree) Number of Sutures: 4 Technique: simple, interrupted Patient Tolerated Procedure: well, no complications Medical Decision Making - Medical Decision Making Patient is an 89-year-old woman with frequent falls, though she states that tonight's fall was different in that she was awake and alert and had lost her balance while reaching for something. The patient will follow-up in clinic with Dr. Locke. Discussed return parameters. Disposition Clinical Impression: Fall, Head injury, Scalp laceration Disposition: HOME SELF-CARE Condition: Good Instructions (If sedation given, give patient instructions): Laceration (ED), Fall Prevention for Older Adults (ED), Head Injury (ED) Additional Instructions: Have the loree removed in approximately 12-14 days. Is patient prescribed a controlled substance at d/c from ED?: No Referrals: Karlo Locke MD [Primary Care Provider] - 1-2 days
--- NOTE | 2020-08-04 23:41 | CT ---
EXAM: CT Head Without Intravenous Contrast CLINICAL HISTORY: fall injury TECHNIQUE: Axial computed tomography images of the head/brain without intravenous contrast. CTDI is 30.135 mGy and DLP is 727.65 mGy-cm. This CT exam was performed using one or more of the following dose reduction techniques: automated exposure control, adjustment of the mA and/or kV according to patient size, and/or use of iterative reconstruction technique. Coronal and sagittal reformatted images were created and reviewed. COMPARISON: 08/03/20 FINDINGS: Brain: Mild age related generalized brain volume loss. Nonocclusive bilateral cerebrum and No hemorrhage. No significant white matter disease. Ventricles: Unremarkable. No ventriculomegaly. Bones/joints: Unremarkable. No acute fracture. Soft tissues: Small left parietal scalp hematoma. Sinuses: Unremarkable as visualized. No acute sinusitis. Mastoid air cells: Unremarkable as visualized. No mastoid effusion. Orbits: Bilateral cataract surgeries. IMPRESSION: No intracranial hemorrhage or skull fracture EXAM: CT Cervical Spine Without Intravenous Contrast CLINICAL HISTORY: ITS.REASON CT Reason: fall injury TECHNIQUE: Axial computed tomography images of the cervical spine without intravenous contrast. CTDI is 30.135 mGy and DLP is 727.65 mGy-cm. This CT exam was performed using one or more of the following dose reduction techniques: automated exposure control, adjustment of the mA and/or kV according to patient size, and/or use of iterative reconstruction technique. Coronal and sagittal reformatted images were created and reviewed. COMPARISON: 08/03/20 FINDINGS: Vertebrae: 3 mm retrolisthesis of C4 on C5. 2 mm anterolisthesis of C7 on T1. These are unchanged. Discs/spinal canal/neural foramina: Osteopenia. Moderate degenerative disc disease. Soft tissues: Unremarkable. Tubes, lines and devices: Pacer leads are noted. IMPRESSION: No acute findings or substantial change.
[2020-08-05] MEDS ORDERED: HYDROcodone/APAP 5-325MG 1 EACH TAB PO STA
[2020-08-05] MEDS ORDERED: LIDOCAINE 1% INJ 10MG/ML (20 ML MDV) SQ ONE (00:25)
--- NOTE | 2020-08-05 01:20 | XR ---
EXAM: XR Left Ankle Complete, 3 or More Views CLINICAL HISTORY: ITS.REASON XR Reason: fall injury TECHNIQUE: Frontal, lateral and oblique views of the left ankle. COMPARISON: No relevant prior studies available. FINDINGS: Bones/joints: Mild joint space narrowing and osteophytosis of the left ankle mortise joint consistent with osteoarthritic changes. No acute fracture or dislocation is seen. Soft tissues: Unremarkable. IMPRESSION: Mild joint space narrowing and osteophytosis of the left ankle mortise joint consistent with osteoarthritic changes. No acute fracture or dislocation is seen.
--- NOTE | 2020-08-05 01:23 | XR ---
EXAM: XR Right Wrist Complete, 3 or More Views CLINICAL HISTORY: ITS.REASON XR Reason: fall injury TECHNIQUE: Frontal, lateral and oblique views of the right wrist. COMPARISON: No relevant prior studies available. FINDINGS: Bones/joints: Mild narrowing and osteophytosis of the radiocarpal joint as well as the intercarpal joints. There are several scattered subcortical cysts in the scaphoid and lunate bones measuring up to 3 mm in diameter. No fracture is identified. No dislocation. Soft tissues: Mild soft tissue swelling surrounding the wrist. No radiopaque foreign body. IMPRESSION: Degenerative changes throughout the wrist most consistent with osteoarthritic changes, less likely gout. No acute fracture or dislocation is seen.
[2020-08-05 01:50] VITALS: BP 102/61; PULSE 68
== END 2020-08-05 02:00 | disposition home or self-care (01) ==
LOC: EC 22:55
DX: S01.01XA Laceration without foreign body of scalp, initial encounter (principal); I48.91 Unspecified atrial fibrillation; I25.119 Atherosclerotic heart disease of native coronary artery with unspecified angina pectoris; E11.9 Type 2 diabetes mellitus without complications; I10 Essential (primary) hypertension; E78.5 Hyperlipidemia, unspecified; K21.9 Gastro-esophageal reflux disease without esophagitis; G47.30 Sleep apnea, unspecified; E07.9 Disorder of thyroid, unspecified; F41.9 Anxiety disorder, unspecified; Z79.01 Long term (current) use of anticoagulants; Z79.4 Long term (current) use of insulin; Z79.890 Hormone replacement therapy; Z79.899 Other long term (current) drug therapy; Z88.8 Allergy status to other drugs, medicaments and biological substances; Z91.048 Other nonmedicinal substance allergy status; Z85.828 Personal history of other malignant neoplasm of skin; Z95.5 Presence of coronary angioplasty implant and graft; Z95.0 Presence of cardiac pacemaker; W18.09XA Striking against other object with subsequent fall, initial encounter; Y92.009 Unspecified place in unspecified non-institutional (private) residence as the place of occurrence of the external cause
CPT/HCPCS: 73110; 73610; 72125; 70450; 99284; 12002; J2001

== ENCOUNTER → 2020-12-14 | Outpatient (CLI) | payer MEDICARE ==
--- NOTE | 2020-12-15 10:44 | MM ---
Reason for exam: additional evaluation requested from prior study. Last mammogram was performed 1 year and 11 months ago. History: Patient is postmenopausal and history of other cancer. Family history of breast cancer in maternal aunt at age 90. Benign stereotactic core biopsy of the right breast, March 20, 2001. Excisional biopsy of the left breast. Took hormonal contraceptives for 3 years beginning at age 32. Taking estrogen for 29 years beginning at age 46. Physical Findings: Nurse Summary: 0.5cm nodule in the left breast at 12 o'clock (nurse ms). MG 3D Diag Mammo W/Cad MARA Bilateral CC and MLO view(s) were taken. Prior study comparison: January 07, 2019, bilateral MG 3d screening mammo w/cad. January 01, 2018, bilateral MG 3d screening mammo w/cad. The breast tissue is heterogeneously dense. This may lower the sensitivity of mammography. Finding #1: Architectural distortion in the upper quadrant, middle position of the left breast consistent with known excisional changes. Finding #2: There are typically benign round, linear calcifications. Previous mammotome biopsy in the right breast. There is a chronic nodularity in the right breast. These results were verbally communicated with the patient and result sheet given to the patient on 12/14/20. ASSESSMENT: Incomplete: need additional imaging evaluation, BI-RAD 0 RECOMMENDATION: Ultrasound of the left breast. (palpable)
--- NOTE | 2020-12-15 10:46 | USB ---
Reason for exam: additional evaluation requested from abnormal screening. History: Patient is postmenopausal and history of other cancer. Family history of breast cancer in maternal aunt at age 90. Benign stereotactic core biopsy of the right breast, March 20, 2001. Excisional biopsy of the left breast. Took hormonal contraceptives for 3 years beginning at age 32. Taking estrogen for 29 years beginning at age 46. US Breast Limited LT Left limited breast ultrasound including focal area of concern, retroareolar and axilla demonstrates a 0.4 x 0.4 x 0.2cm oval, cystic lesion at 11 o'clock, a 0.4 x 0.4 x 0.2cm oval, solid, hyperechoic lesion at 11 o'clock favor tiny lipoma, a 0.3 x 0.3 x 0.2cm oval, cystic lesion at 3 o'clock posterior nipple and a 1.0 x 1.1 x 0.9cm benign lymph node at the axilla. These results were verbally communicated with the patient and result sheet given to the patient on 12/14/20. ASSESSMENT: Benign, BI-RAD 2 RECOMMENDATION: Routine screening mammogram of both breasts in 1 year. Manage on a clinical basis with regard to left pain.
== END | disposition home or self-care (01) ==
LOC: RADMAMWWP 09:27
PROVIDERS: ATTEND Obstetrics & Gynecology
DX: R92.1 Mammographic calcification found on diagnostic imaging of breast (principal); R92.8 Other abnormal and inconclusive findings on diagnostic imaging of breast; N60.02 Solitary cyst of left breast; Z78.0 Asymptomatic menopausal state; Z80.3 Family history of malignant neoplasm of breast
CPT/HCPCS: 77066; 76642; G0279; 77062

== ENCOUNTER 2021-01-01 10:08 | Observation (INO) | payer MEDICARE ==
--- NOTE | 2021-01-01 10:35 | ED ---
General Adult HPI - General Chief complaint: Chest Pain Stated complaint: High BP, chest pain Time Seen by Provider: 01/01/21 10:21 Source: patient, family, RN notes reviewed, old records reviewed Mode of arrival: wheelchair Limitations: no limitations - History of Present Illness Initial comments: 89-year-old female presenting for evaluation of elevated blood pressure. Patient had been monitoring her blood pressure throughout the day yesterday and had several high readings with a systolic in the 160s and diastolic around 110. She contacted her sleep tech out of [facility] who recommended that she take any additional dose of metoprolol as well as Imdur. She also took a nitroglycerin. She states that she's had a mild chest discomfort as well. No central radiating chest pain. No cough or fever. No recent changes to her medication. She does have history of atrial fibrillation status post pacemaker. - Related Data Home Medications Medication Instructions Recorded Confirmed Apixaban [Eliquis] 5 mg PO BID 04/19/17 01/01/21 Ascorbic Acid [Vitamin C] 500 mg PO DAILY PRN 04/19/17 01/01/21 glipiZIDE XL [Glucotrol XL] 2.5 mg PO AC-BRKFST 04/19/17 01/01/21 Levothyroxine Sodium [Synthroid] 75 mcg PO DAILY 05/26/17 01/01/21 Estradiol 0.05MG/24Hr Biwkptch 1 patch TRANSDERM SUWE 01/13/19 01/01/21 [Vivelle-Dot 0.05 MG] Atorvastatin [Lipitor] 20 mg PO HS 05/09/19 01/01/21 Isosorbide Mononitrate ER [Imdur] 90 mg PO HS 05/09/19 01/01/21 Spironolactone [Aldactone] 25 mg PO DAILY 05/09/19 01/01/21 ALPRAZolam [Xanax] 0.25 mg PO HS PRN 09/17/19 01/01/21 hydrALAZINE HCL [Apresoline] 100 mg PO Q8H 09/17/19 01/01/21 Metoprolol Tartrate [Lopressor] 100 mg PO TID 02/27/20 01/01/21 cloNIDine HCL [Catapres] 0.1 mg PO DAILY PRN 06/16/20 01/01/21 Furosemide [Lasix] 20 mg PO DAILY 07/05/20 01/01/21 Nitroglycerin Sl Tabs [Nitrostat] 0.4 mg SL Q5M PRN 08/02/20 01/01/21 Cholecalciferol (Vitamin D3) 75 mcg PO DAILY 01/01/21 01/01/21 [Vitamin D3 (3000 Iu)] Famotidine [Pepcid] 20 mg PO DAILY 01/01/21 01/01/21 cloNIDine HCL [Catapres] 0.2 mg PO TID 01/01/21 01/01/21 Previous Rx's Medication Instructions Recorded Isosorbide Mononitrate ER [Imdur] 60 mg PO DAILY tab.er.24h 01/13/19 Aspirin 81 mg PO BID #0 chew 07/07/20 traMADol HCl [Ultram] 50 mg PO Q6HR PRN 3 Days #12 tab 08/04/20 Allergies Allergy/AdvReac Type Severity Reaction Status Date / Time JORGITO Inhibitors Allergy Severe Swelling Verified 01/01/21 11:48 cortisone Allergy Severe Rash/Hives, Verified 01/01/21 11:48 high BP Calcium Channel Blocking AdvReac SORES IN Verified 01/01/21 11:48 Agent Dilt MOUTH dust,trees Allergy Itching Uncoded 01/01/21 11:48 Review of Systems ROS Statement: Those systems with pertinent positive or pertinent negative responses have been documented in the HPI. ROS Other: All systems not noted in ROS Statement are negative. Past Medical History Past Medical History: Atrial Fibrillation, Coronary Artery Disease (CAD), Cancer, Chest Pain / Angina, Diabetes Mellitus, GERD/Reflux, Hyperlipidemia, Hypertension, Osteoarthritis (OA), Sleep Apnea/CPAP/BIPAP, Thyroid Disorder Additional Past Medical History / Comment(s): skin cancer, restless leg syndrome, varicose veins, IBS, History of Any Multi-Drug Resistant Organisms: None Reported Past Surgical History: Adenoidectomy, Appendectomy, Breast Surgery, Cholecystectomy, Heart Catheterization With Stent, Hysterectomy, Orthopedic Surgery, Pacemaker, Tonsillectomy Additional Past Surgical History / Comment(s): walt cataract, 3 stents, partial thyroidectomy, rt shoulder rotator cuff, walt breast biopsy, metal clip in rt breast Past Anesthesia/Blood Transfusion Reactions: No Reported Reaction Date of Last Stent Placement:: 1998 Type of Cardiac Device: Permanent Pacemaker, Unknown Device Placement Date:: 2014 Past Psychological History: Anxiety Smoking Status: Never smoker - Past Family History Mother Additional Family Medical History / Comment(s): Mother at age 76 from massive stroke. Brother(s) Additional Family Medical History / Comment(s): The patient had a total of 3 brothers. One brother from melanoma. One brother is with history of coronary artery disease status post CABG. One brother has from colon cancer with history of coronary artery disease. Patient does not have any sisters. Daughter(s) Family Medical History: No Reported History (Healthy 1 daughter) Son(s) History Unknown: Yes (Healthy 3 sons) Additional Family Medical History / Comment(s): Patient has 3 sons and 1 daughter. One son has history of coronary artery disease, second son has history of AICD. Patient has 1 son and 1 daughter with no major medical problems. Father Additional Family Medical History / Comment(s): Father at age 59 from a m yocardial infarction. General Exam Limitations: no limitations General appearance: alert, in no apparent distress Head exam: Present: atraumatic, normocephalic Eye exam: Present: normal appearance, PERRL ENT exam: Present: normal exam Neck exam: Present: normal inspection. Absent: tenderness, meningismus Respiratory exam: Present: normal lung sounds bilaterally. Absent: respiratory distress, wheezes Cardiovascular Exam: Present: regular rate, normal rhythm GI/Abdominal exam: Present: soft. Absent: distended, tenderness, guarding Extremities exam: Present: normal inspection, normal capillary refill. Absent: pedal edema, calf tenderness Neurological exam: Present: alert, oriented X3, CN II-XII intact. Absent: motor sensory deficit Psychiatric exam: Present: normal affect, normal mood Skin exam: Present: warm, dry, intact. Absent: cyanosis, diaphoretic Course Vital Signs 01/01/21 10:09 Temperature 97.4 F L Pulse Rate 77 Respiratory 18 Rate Blood Pressure 126/78 O2 Sat by Pulse 96 Oximetry EKG Findings - EKG Comments: EKG Findings:: Paced rhythm with occasional PVC, left axis, rate of 84, QRS duration 158, QTC 517 Medical Decision Making - Medical Decision Making 89-year-old female who presented for elevated blood pressure and mild chest discomfort. Patient is not in any acute distress, initial blood pressure stable. She is having some chest discomfort which was relieved by nitroglycerin. She has previous history of atrial fibrillation status post pacemaker. She is on multiple antihypertensive medications. Workup in the emergency department reveals chest x-ray which is negative for any acute cardiopulmonary findings. Normal CBC, normal CMP, negative initial troponin. She'll be kept for close blood pressure monitoring and serial cardiac enzymes. Cardiology placed on consult. - Lab Data Result diagrams: 01/01/21 10:01/01/21 10: Lab Results 01/01/21 01/01/21 01/01/21 Range/Units 10:29 10: 10: WBC 7.8 (3.8-10.6) k/uL RBC 5.07 (3.80-5.40) m/uL Hgb 15.0 (11.4-16.0) gm/dL Hct 46.7 H (34.0-46.0) % MCV 92.1 (80.0-100.0) fL MCH 29.5 (25.0-35.0) pg MCHC 32.1 (31.0-37.0) g/dL RDW 14.8 (11.5-15.5) % Plt Count 222 (150-450) k/uL MPV 7.3 Neutrophils % 70 % Lymphocytes % 16 % Monocytes % 10 % Eosinophils % 2 % Basophils % 1 % Neutrophils # 5.5 (1.3-7.7) k/uL Lymphocytes # 1.3 (1.0-4.8) k/uL Monocytes # 0.8 (0-1.0) k/uL Eosinophils # 0.1 (0-0.7) k/uL Basophils # 0.0 (0-0.2) k/uL PT 11.0 (9.0-12.0) sec INR 1.0 (<1.2) APTT 26.2 (22.0-30.0) sec Sodium 138 (137-145) mmol/L Potassium 4.0 (3.5-5.1) mmol/L Chloride 101 (98-107) mmol/L Carbon Dioxide 31 H (22-30) mmol/L Anion Gap 6 mmol/L BUN 20 H (7-17) mg/dL Creatinine 0.86 (0.52-1.04) mg/dL Est GFR (CKD-EPI)AfAm 70 (>60 ml/min/1.73 sqM) Est GFR (CKD-EPI)NonAf 61 (>60 ml/min/1.73 sqM) Glucose 155 H (74-99) mg/dL Calcium 9.8 (8.4-10.2) mg/dL Magnesium 1.9 (1.6-2.3) mg/dL Total Bilirubin 0.7 (0.2-1.3) mg/dL AST 26 (14-36) U/L ALT 25 (4-34) U/L Alkaline Phosphatase 82 (38-126) U/L Troponin I (0.000-0.034) ng/mL Total Protein 6.6 (6.3-8.2) g/dL Albumin 3.9 (3.5-5.0) g/dL 01/01/21 Range/Units 10:29 WBC (3.8-10.6) k/uL RBC (3.80-5.40) m/uL Hgb (11.4-16.0) gm/dL Hct (34.0-46.0) % MCV (80.0-100.0) fL MCH (25.0-35.0) pg MCHC (31.0-37.0) g/dL RDW (11.5-15.5) % Plt Count (150-450) k/uL MPV Neutrophils % % Lymphocytes % % Monocytes % % Eosinophils % % Basophils % % Neutrophils # (1.3-7.7) k/uL Lymphocytes # (1.0-4.8) k/uL Monocytes # (0-1.0) k/uL Eosinophils # (0-0.7) k/uL Basophils # (0-0.2) k/uL PT (9.0-12.0) sec INR (<1.2) APTT (22.0-30.0) sec Sodium (137-145) mmol/L Potassium (3.5-5.1) mmol/L Chloride (98-107) mmol/L Carbon Dioxide (22-30) mmol/L Anion Gap mmol/L BUN (7-17) mg/dL Creatinine (0.52-1.04) mg/dL Est GFR (CKD-EPI)AfAm (>60 ml/min/1.73 sqM) Est GFR (CKD-EPI)NonAf (>60 ml/min/1.73 sqM) Glucose (74-99) mg/dL Calcium (8.4-10.2) mg/dL Magnesium (1.6-2.3) mg/dL Total Bilirubin (0.2-1.3) mg/dL AST (14-36) U/L ALT (4-34) U/L Alkaline Phosphatase (38-126) U/L Troponin I <0.012 (0.000-0.034) ng/mL Total Protein (6.3-8.2) g/dL Albumin (3.5-5.0) g/dL Disposition Clinical Impression: Chest pain Disposition: ADMITTED IP TO THIS [facility] Condition: Stable Is patient prescribed a controlled substance at d/c from ED?: No Referrals: Karlo Locke MD [Primary Care Provider] - 1-2 days Decision to Admit Reason: Admit from EC Decision Date: 01/01/21 Decision Time: 12:34
[2021-01-01 10:45] LABS: Basophils % (A) 1 %; Eosinophils # (A) 0.1 k/uL (0-0.7); Eosinophils % (A) 2 %; HCT 46.7 % (34.0-46.0); Lymphocytes # (A) 1.3 k/uL (1.0-4.8); Lymphocytes % (A) 16 %; MCH 29.5 pg (25.0-35.0); MCHC 32.1 g/dL (31.0-37.0); MCV 92.1 fL (80.0-100.0); Mean Platelet Volume 7.3; Monocytes # (A) 0.8 k/uL (0-1.0); Monocytes % (A) 10 %; Neutrophils # (A) 5.5 k/uL (1.3-7.7); Neutrophils % (A) 70 %; Platelet Count 222 k/uL (150-450); RBC 5.07 m/uL (3.80-5.40); RDW 14.8 % (11.5-15.5); WBC 7.8 k/uL (3.8-10.6)
[2021-01-01 10:54] LABS: Albumin 3.9 g/dL (3.5-5.0); Calcium 9.8 mg/dL (8.4-10.2); Magnesium 1.9 mg/dL (1.6-2.3); Total Bilirubin 0.7 mg/dL (0.2-1.3); Total Protein 6.6 g/dL (6.3-8.2)
[2021-01-01 11:04] LABS: Partial Thromboplastin Time 26.2 sec (22.0-30.0)
--- NOTE | 2021-01-01 11:13 | XR ---
EXAMINATION TYPE: XR chest 2V DATE OF EXAM: 01/01/2021 COMPARISON: Chest x-ray August 02, 2020 HISTORY: Chest pain. TECHNIQUE: Frontal and lateral views of the chest are obtained. FINDINGS: There is no new Suspicious focal air space opacity, pleural effusion, or pneumothorax seen . The cardiac silhouette size remains enlarged with dual-lead pacemaker and atherosclerotic aorta re demonstrated. The osseous structures are intact. IMPRESSION: Cardiomegaly without acute pulmonary process. No significant change from prior.
[2021-01-01] MEDS ORDERED: ACETAMINOPHEN TAB 325 MG TAB PO PRN (12:32)
[2021-01-01] MEDS ORDERED: NALOXONE 0.4 MG/ML 1 ML VIAL IV PRN (12:32)
[2021-01-01] MEDS ORDERED: cloNIDine HCL 0.1 MG TAB PO PRN (15:32)
[2021-01-01] MEDS ORDERED: ALPRAZolam 0.25 MG TAB PO PRN (15:32)
[2021-01-01] MEDS ORDERED: ASCORBIC ACID 500 MG TAB PO PRN (15:32)
[2021-01-01] MEDS ORDERED: traMADol 50 MG TAB PO PRN (15:32)
[2021-01-01] MEDS ORDERED: NITROGLYCERIN SL TABS 0.4 MG TAB SUBLINGUAL PRN (15:32)
--- NOTE | 2021-01-01 17:37 | P.HPIM ---
History of Present Illness H&P Date: 01/01/21 Chief Complaint: Chest pain and angina, CAD, urgent hypertension HISTORY OF PRESENT ILLNESS 89-year-old female one of my office patient with known for long time with past medical history of CAD post angina stress test and heart catheter with stent p lacement in the past. History of arrhythmia post pacemaker, history of recurrent and urgent hypertension on multi-medication. Multi-admission to the hospital with noncontrolled hypertension require multi-medication and has been seen nephrology and cardiology. Baseline patient seen cardiology at [facility] Dr. Glaser who has done stress test on her last time close to a year ago. Patient was the hospital twice last 4 months for urgent hypertension and recurrent chest pain was seen her hospice administrator afterward. Was in to see her hospice administrator 2 weeks ago no testing was needed at the time slight adjustment of her blood pressure medication which seems to do better with it so far. Patient developed to have significant elevated blood pressure not controlled medication ended up calling Dr. Salazar and instructed to take an extra clonidine and if continued to have significantly high blood pressure or recurrent angina to come to [facility] department. Patient ended up coming to [facility] today after finding her blood pressure become better controlled medication but continued to have recurrent chest pain and tightness on and off. Was seen and evaluated her for CK and second troponin came back negative EKG did not show any major abnormality or change. With her current risk factor with the significantly elevated blood pressure patient ended up in hospitalized for the above problem. REVIEW OF SYSTEMS CONSTITUTIONAL: Well-developed no acute respiratory distress. EYES: No icterus sclerae, no conjunctivitis. EARS, NOSE, MOUTH, THROAT, and FACE: No sore throat, lymphadenopathy, carotid bruits or deformity. RESPIRATORY: No SOB cough or wheezes. CARDIOVASCULAR: Positive CP and Palpitation, positive PND, Orthopnea, and angina. GASTROINTESTINAL: No Abd pain, Nausea or vomiting, occasional Diarrhea no constipation, No GI Bleed, no distention or masses. GENITOURINARY: Negative for Hematuria or UTI, no kidney stones. INTEGUMENT/BREAST: Negative for any muscular injury with mild osteoarthritis.. HEMATOLOGIC/LYMPHATIC: Negative for bleed or purpura. MUSCULOSKELTAL: Negative for Myalgia or arthralgia. NEURLOGICAL: No LOC, Sz or syncope, blurred vision dizziness or abnormality.. BEHAVIORAL/PSYCH: Negative. ENDOCRINE: Negative. PHYSICAL EXAMINATION General Appearance: Alert, cooperative, no distress, appears stated age. Neck HEENT: Supple, no lymphadenopathy, no thyroid enlargement, no carotid bruits. Lungs: Clear to auscultation without crackles or wheezes no rhonchi, no deformity. Chest Wall: Chest wall normal expansion with deep inspiration no tenderness and no deformity was found on exam, no costochondral pain or discomfort. Heart: Regular rate and rhythm, S1, S2 normal, no murmur, rub or gallop. Back: Symmetric, no curvature, ROM normal, no CVA tenderness. Abdomen: Soft, non-tender, bowel sounds active all four quadrants, no masses, no organomegaly. Extremities: Extremities normal, atraumatic, no cyanosis or edema. Pulses: 2+ and symmetric. Skin: Skin color, texture, tugor normal, no rashes or lesions. Neurologic: Alert oriented x3 cranial nerves II through XII intact, no motor deficit, no abnormal balance or gait. ASSESSMENT AND PLAN 1 chest pain and angina with CK and troponin negative at the time, consult cardiology will admit patient to the hospital continue current management for now and if needed start nitro drip if continued to have pain and discomfort. Patient is on anticoagulation currently no need to start heparin drip. 2 uncontrolled hypertension. She is doing currently multiple medication for hypertension from hydralazine 100 mg 3 times a day, clonidine 0.2 mg twice a day and clonidine 0.1 mg every 6 hour for systolic above 160, Aldactone 25 mg every other day, metoprolol titrate 100 mg 3 times a day and isosorbide mononitrate 60 mg twice a day. 3. Paroxysmal atrial fibrillation. Continue metoprolol 100 mg 3 times a day and still on anticoagulation with Eliquis 5 mg twice a day. 4 type 2 diabetes: Continue glipizide 2.5 mg daily and Accu-Chek sliding scale coverage. 5 hypothyroidism: Continue patient on levothyroxine 75 g daily. 6 hyperlipidemia: Remain on Lipitor 20 mg a day. 7 diastolic congestive heart failure: Remain on hydralazine, isosorbide, metoprolol, furosemide and spironolactone with good result so far. 8 chronic diabetic neuropathy: Remain on gabapentin 100 mg twice a day. 9 GI prophylaxis: Continue patient on pantoprazole 50 mg a day. 10 DVT prophylaxis. Patient on heparin drip.. 11. COVID-19 testing, was negative CODE STATUS: DO NOT RESUSCITATE. Patient will be admitted to the hospital for a minimum of 2 night stay. Past Medical History Past Medical History: Atrial Fibrillation, Coronary Artery Disease (CAD), Cancer, Chest Pain / Angina, Diabetes Mellitus, GERD/Reflux, Hyperlipidemia, Hypertension, Osteoarthritis (OA), Sleep Apnea/CPAP/BIPAP, Thyroid Disorder Additional Past Medical History / Comment(s): skin cancer, restless leg syndrome, varicose veins, IBS, History of Any Multi-Drug Resistant Organisms: None Reported Past Surgical History: Adenoidectomy, Appendectomy, Breast Surgery, Cholecystectomy, Heart Catheterization With Stent, Hysterectomy, Orthopedic Surgery, Pacemaker, Tonsillectomy Additional Past Surgical History / Comment(s): walt cataract, 3 stents, partial thyroidectomy, rt shoulder rotator cuff, walt breast biopsy, metal clip in rt breast Past Anesthesia/Blood Transfusion Reactions: No Reported Reaction Date of Last Stent Placement:: 1998 Type of Cardiac Device: Permanent Pacemaker, Unknown Device Placement Date:: 2014 Past Psychological History: Anxiety Smoking Status: Never smoker - Past Family History Mother Additional Family Medical History / Comment(s): Mother at age 76 from mass carly stroke. Brother(s) Additional Family Medical History / Comment(s): The patient had a total of 3 brothers. One brother from melanoma. One brother is with history of coronary artery disease status post CABG. One brother has from colon cancer with history of coronary artery disease. Patient does not have any sisters. Daughter(s) Family Medical History: No Reported History (Healthy 1 daughter) Son(s) History Unknown: Yes (Healthy 3 sons) Additional Family Medical History / Comment(s): Patient has 3 sons and 1 daughter. One son has history of coronary artery disease, second son has history of AICD. Patient has 1 son and 1 daughter with no major medical problems. Father Additional Family Medical History / Comment(s): Father at age 59 from a myocardial infarction. Medications and Allergies Home Medications Medication Instructions Recorded Confirmed Type Apixaban [Eliquis] 5 mg PO BID 04/19/17 01/01/21 History Ascorbic Acid [Vitamin C] 500 mg PO DAILY PRN 04/19/17 01/01/21 History glipiZIDE XL [Glucotrol XL] 2.5 mg PO AC-BRKFST 04/19/17 01/01/21 History Levothyroxine Sodium [Synthroid] 75 mcg PO DAILY 05/26/17 01/01/21 History Estradiol 0.05MG/24Hr Biwkptch 1 patch TRANSDERM SUWE 01/13/19 01/01/21 History [Vivelle-Dot 0.05 MG] Isosorbide Mononitrate ER [Imdur] 60 mg PO DAILY tab.er.24h 01/13/19 01/01/21 Rx Atorvastatin [Lipitor] 20 mg PO HS 05/09/19 01/01/21 History Isosorbide Mononitrate ER [Imdur] 90 mg PO HS 05/09/19 01/01/21 History Spironolactone [Aldactone] 25 mg PO DAILY 05/09/19 01/01/21 History ALPRAZolam [Xanax] 0.25 mg PO HS PRN 09/17/19 01/01/21 History hydrALAZINE HCL [Apresoline] 100 mg PO Q8H 09/17/19 01/01/21 History Metoprolol Tartrate [Lopressor] 100 mg PO TID 02/27/20 01/01/21 History cloNIDine HCL [Catapres] 0.1 mg PO DAILY PRN 06/16/20 01/01/21 History Furosemide [Lasix] 20 mg PO DAILY 07/05/20 01/01/21 History Aspirin 81 mg PO BID #0 chew 07/07/20 01/01/21 Rx Nitroglycerin Sl Tabs [Nitrostat] 0.4 mg SL Q5M PRN 08/02/20 01/01/21 History traMADol HCl [Ultram] 50 mg PO Q6HR PRN 3 Days #12 tab 08/04/20 01/01/21 Rx Cholecalciferol (Vitamin D3) 75 mcg PO DAILY 01/01/21 01/01/21 History [Vitamin D3 (3000 Iu)] Famotidine [Pepcid] 20 mg PO DAILY 01/01/21 01/01/21 History cloNIDine HCL [Catapres] 0.2 mg PO TID 01/01/21 01/01/21 History Allergies Allergy/AdvReac Type Severity Reaction Status Date / Time JORGITO Inhibitors Allergy Severe Swelling Verified 01/01/21 11:48 cortisone Allergy Severe Rash/Hives, Verified 01/01/21 11:48 high BP Calcium Channel Blocking AdvReac SORES IN Verified 01/01/21 11:48 Agent Dilt MOUTH dust,trees Allergy Itching Uncoded 01/01/21 11:48 Physical Exam Vitals: Vital Signs Temp Pulse Resp BP Pulse Ox 01/01/21 15:44 69 18 119/88 97 01/01/21 12:49 60 18 119/73 94 L 01/01/21 11:30 67 18 117/76 95 01/01/21 10:09 97.4 F L 77 18 126/78 96 Intake and Output 01/01/21 01/01/21 01/01/21 06:59 14:59 22:59 Other: Weight 87.997 kg Results CBC & Chem 7: 01/01/21 10:29 01/01/21 10:29 Labs: Abnormal Lab Results - Last 24 Hours (Table) 01/01/21 01/01/21 Range/Units 10:29 10:29 Hct 46.7 H (34.0-46.0) % Carbon Dioxide 31 H (22-30) mmol/L BUN 20 H (7-17) mg/dL Glucose 155 H (74-99) mg/dL
[2021-01-01] MEDS: hydrALAZINE HCL 50 MG TAB PO SCH (17:53)
[2021-01-01] MEDS: METOPROLOL TARTRATE 50 MG TAB PO SCH ×2 (17:53→22:07)
[2021-01-01] MEDS: cloNIDine HCL 0.2 MG TAB PO SCH ×2 (17:53→22:07)
[2021-01-01] MEDS ORDERED: ATORVASTATIN 20 MG TAB PO SCH (21:00)
[2021-01-01] MEDS ORDERED: ISOSORBIDE MONONITRATE ER 30 MG TAB.ER.24H PO SCH (21:00)
[2021-01-01] MEDS: APIXABAN 5 MG TAB PO SCH (21:17)
[2021-01-01] MEDS: ASPIRIN 81 MG PO SCH (21:17)
[2021-01-01 21:45] LABS: Glucose,Whole Blood 149 mg/dL (75-99)
[2021-01-02] MEDS: hydrALAZINE HCL 50 MG TAB PO SCH ×4 (00:09→16:44)
[2021-01-02 03:39] VITALS: RESP 16
[2021-01-02] MEDS ORDERED: LEVOTHYROXINE 75 MCG TAB PO SCH (06:30)
[2021-01-02 07:08] LABS: Glucose,Whole Blood 141 mg/dL (75-99)
[2021-01-02] MEDS: cloNIDine HCL 0.2 MG TAB PO SCH ×2 (07:48→16:44)
[2021-01-02] MEDS: ASPIRIN 81 MG PO SCH (07:49)
[2021-01-02] MEDS: APIXABAN 5 MG TAB PO SCH (07:49)
[2021-01-02] MEDS ORDERED: CHOLECALCIFEROL 25 MCG (1000 IU) TABLET PO SCH (09:00)
[2021-01-02] MEDS ORDERED: SPIRONOLACTONE 25 MG TAB PO SCH (09:00)
[2021-01-02] MEDS ORDERED: FUROSEMIDE 20 MG TAB PO SCH (09:00)
[2021-01-02] MEDS ORDERED: ISOSORBIDE MONONITRATE ER 60 MG TAB.ER.24H PO SCH (09:00)
[2021-01-02] MEDS ORDERED: FAMOTIDINE 20 MG TAB PO SCH (09:00)
[2021-01-02] MEDS: METOPROLOL TARTRATE 50 MG TAB PO SCH ×2 (09:08→16:44)
[2021-01-02 12:14] LABS: Glucose,Whole Blood 117 mg/dL (75-99)
--- NOTE | 2021-01-02 13:43 | P.DS ---
Providers Date of admission: 01/01/21 12:32 Expected date of discharge: 01/02/21 Attending physician: Karol Locke Consults: 01/01/21 12:33 Consult Physician Routine Consulting Provider: Piter Huynh Consult Reason/Comments: CP Do you want consulting provider notified?: Yes Primary care physician: [facility] Course: HISTORY OF PRESENT ILLNESS 89-year-old female one of my office patient with known for long time with past medical history of CAD post angina stress test and heart catheter with stent placement in the past. History of arrhythmia post pacemaker, history of recurrent and urgent hypertension on multi-medication. Multi-admission to the hospital with noncontrolled hypertension require multi-medication and has been seen nephrology and cardiology. Baseline patient seen cardiology at [facility] Dr. Glaser who has done stress test on her last time close to a year ago. Patient was the hospital twice last 4 months for urgent hypertension and recurrent chest pain was seen her rn outpatient surgery afterward. Was in to see her rn outpatient surgery 2 weeks ago no testing was needed at the time slight adjustment of her blood pressure medication which seems to do better with it so far. Patient developed to have significant elevated blood pressure not controlled medication ended up calling Dr. Salazar and instructed to take an extra clonidine and if continued to have significantly high blood pressure or recurrent angina to come to [facility]. Patient ended up coming to [facility] today after finding her blood pressure become better controlled medication but continued to have recurrent chest pain and tightness on and off. Was seen and evaluated her for CK and second troponin came back negative EKG did not show any major abnormality or change. With her current risk factor with the significantly elevated blood pressure patient ended up in hospitalized for the above problem. 01/02: Patient is feeling well this morning. She denies having any chest pain or shortness of breath. Blood pressure has been controlled. Blood pressure has been consistently controlled with current medication regime. She does have a follow-up appointment with her own rn outpatient surgery coming up. She had no events overnight. Patient is afebrile, heart rate 67, blood pressure 133/80, pulse ox 96% on room air. Capillary blood glucose running between 117 and 149. Echocardiogram reveals EF of 55-60% with moderate concentric left ventricular hypertrophy, mild to moderate aortic sclerosis no evidence of aortic regurgitation or aortic stenosis. Moderate mitral regurgitation. No pulmonary hypertension. Patient will be discharged home today in stable condition once cleared by cardiology. ASSESSMENT AND PLAN 1 chest pain and angina with negative troponins. 2 uncontrolled hypertension. 3. Paroxysmal atrial fibrillation. 4 type 2 diabetes 5 hypothyroidism 6 hyperlipidemia 7 chronic diastolic congestive heart failure 8 chronic diabetic neuropathy 9 COVID-19 testing, was negative DISCHARGE PLAN Home Impression and plan of care have been directed as dictated by the signing physician. Tereza Arnett nurse practitioner acting as scribe for signing physician. Patient Condition at Discharge: Good Plan - Discharge Summary Discharge Rx Participant: No New Discharge Prescriptions: Continue Ascorbic Acid [Vitamin C] 500 mg PO DAILY PRN PRN Reason: Cold Symptoms glipiZIDE XL [Glucotrol XL] 2.5 mg PO AC-BRKFST Apixaban [Eliquis] 5 mg PO BID Levothyroxine Sodium [Synthroid] 75 mcg PO DAILY Estradiol 0.05MG/24Hr Biwkptch [Vivelle-Dot 0.05 MG] 1 patch TRANSDERM SUWE Isosorbide Mononitrate ER [Imdur] 60 mg PO DAILY tab.er.24h Spironolactone [Aldactone] 25 mg PO DAILY Atorvastatin [Lipitor] 20 mg PO HS Isosorbide Mononitrate ER [Imdur] 90 mg PO HS hydrALAZINE HCL [Apresoline] 100 mg PO Q8H ALPRAZolam [Xanax] 0.25 mg PO HS PRN PRN Reason: Anxiety or sleeplessness Metoprolol Tartrate [Lopressor] 100 mg PO TID cloNIDine HCL [Catapres] 0.1 mg PO DAILY PRN PRN Reason: hypertensive urgency Furosemide [Lasix] 20 mg PO DAILY Aspirin 81 mg PO BID #0 chew Nitroglycerin Sl Tabs [Nitrostat] 0.4 mg SL Q5M PRN PRN Reason: Chest Pain traMADol HCl [Ultram] 50 mg PO Q6HR PRN 3 Days #12 tab PRN Reason: Mild Pain Cholecalciferol (Vitamin D3) [Vitamin D3 (3000 Iu)] 75 mcg PO DAILY Famotidine [Pepcid] 20 mg PO DAILY cloNIDine HCL [Catapres] 0.2 mg PO TID Discharge Medication List Apixaban [Eliquis] 5 mg PO BID 04/19/17 [History] Ascorbic Acid [Vitamin C] 500 mg PO DAILY PRN 04/19/17 [History] glipiZIDE XL [Glucotrol XL] 2.5 mg PO AC-BRKFST 04/19/17 [History] Levothyroxine Sodium [Synthroid] 75 mcg PO DAILY 05/26/17 [History] Estradiol 0.05MG/24Hr Biwkptch [Vivelle-Dot 0.05 MG] 1 patch TRANSDERM SUWE 01/13/19 [History] Isosorbide Mononitrate ER [Imdur] 60 mg PO DAILY tab.er.24h 01/13/19 [Rx] Atorvastatin [Lipitor] 20 mg PO HS 05/09/19 [History] Isosorbide Mononitrate ER [Imdur] 90 mg PO HS 05/09/19 [History] Spironolactone [Aldactone] 25 mg PO DAILY 05/09/19 [History] ALPRAZolam [Xanax] 0.25 mg PO HS PRN 09/17/19 [History] hydrALAZINE HCL [Apresoline] 100 mg PO Q8H 09/17/19 [History] Metoprolol Tartrate [Lopressor] 100 mg PO TID 02/27/20 [History] cloNIDine HCL [Catapres] 0.1 mg PO DAILY PRN 06/16/20 [History] Furosemide [Lasix] 20 mg PO DAILY 07/05/20 [History] Aspirin 81 mg PO BID #0 chew 07/07/20 [Rx] Nitroglycerin Sl Tabs [Nitrostat] 0.4 mg SL Q5M PRN 08/02/20 [History] traMADol HCl [Ultram] 50 mg PO Q6HR PRN 3 Days #12 tab 08/04/20 [Rx] Cholecalciferol (Vitamin D3) [Vitamin D3 (3000 Iu)] 75 mcg PO DAILY 01/01/21 [History] Famotidine [Pepcid] 20 mg PO DAILY 01/01/21 [History] cloNIDine HCL [Catapres] 0.2 mg PO TID 01/01/21 [History] Follow up Appointment(s)/Referral(s): Karlo Locke MD [Primary Care Provider] - 1-2 days (Keep appointment for FridayJanuary 05 @ 1:00pm.) Malou Glaser MD [REFERRING] - 1 Week (appointment scheduled 01/02 930) Patient Instructions/Handouts: Chest Pain (DC) Discharge Disposition: HOME SELF-CARE
[2021-01-02 13:47] VITALS: TEMP 97.9
--- NOTE | 2021-01-02 14:38 | P.CRDCN ---
History of Present Illness History of present illness: HISTORY OF PRESENTING ILLNESS This is a pleasant 89-year-old female past medical history significant for hypertension, hyperlipidemia, chronic persistant atrial fibrillation (on elquis), type 2 diabetes, sick sinus syndrome s/p permanent pacemaker implantation, myocardial infarction, coronary artery disease s/p multivessel PCI. She follows with a cardiologyist, Dr. Malou Glaser, at [place]. We have been asked to see in consultation for chest pain. Patient states she had elevated BP at home 168/108. However, her machine was taking variable blood pressures and heart rates. the patient states they were jumping all around the place. She called her movable bulkhead installer Dr. Glaser and she told the patient to take her medications and actually dose of her clonidine. At this time she started to have central chest pain. Nonradiating, nonexertional. She denies palpitations, shortness of breath, lower extremity edema, fatigue, weakness, lightheadedness, syncope. Nothing aggravate the pain. Pain was relieved by nitroglycerin. She denies symptoms of orthopnea or PND. Current home cardiac medications include clonidine 0.1mg dialy PRN, atorvastatin 20mg nightly, hydralazine 100mg Q8hr, clonidine 0.2mg TID, spironolactone 25mg daily, metoprolol tartrate 100mg TID, Imdur 60mg morning, Imdur 90mg nightly, Lasix 20mg daily, aspirin 81mg BID, Eliquis 5mg BID. She states she's had a stress test and catheterization about over a year. DIAGNOSTICS EKG reveals ventricular paced rhythm. Heart rate 84 EKG this morning with ventricular paced rhythm heart rate 67 Most recent echocardiogram -06/01/2020 EF 50-55%, RV is moderately enlarged, LA is moderately dilated, RA is mildly enlarged, moderate MR, moderate TR, moderate pulmonary hypertension RVSP 49.95mmHg. Chest xray cardiomegaly without acute pulmonary process. Dual-lead pacemaker. Laboratory reviewed, troponin negative 3, renal function stable, sodium 138, potassium 4.0, serum creatinine 0.86, CBC unremarkable, COVID-19 negative REVIEW OF SYSTEMS At the time of my exam: CONSTITUTIONAL: Denies fever or chills. CARDIOVASCULAR: + chest pain, Denies shortness of breath, orthopnea, PND or palpitations. RESPIRATORY: Denies cough. GASTROINTESTINAL: Denies abdominal pain, diarrhea, constipation, nausea or vomiting. MUSCULOSKELETAL: Denies myalgias. NEUROLOGIC: Denies numbness, tingling, headacbe or weakness. ENDOCRINE: Denies fatigue, weight change, polydipsia or polyurina. GENITOURINARY: Denies burning, hematuria or urgency with micturation. HEMATOLOGIC: Denies history of anemia or bleeding. PHYSICAL EXAMINATION Blood pressure 133/80 heart rate 67 afebrile and maintaining oxygen saturation 96% on room air CONSTITUTIONAL: No apparent distress. HEENT: Head is normocephalic. Pupils are equal, round. Sclerae anicteric. Mucous membranes of the mouth are moist. No JVD. No carotid bruit. CHEST EXAMINATION: Lungs are clear to auscultation. No chest wall tenderness is noted on palpation or with deep breathing. HEART EXAMINATION: Regular rate and rhythm. S1, S2 heard. No murmurs, gallops or rub. ABDOMEN: Soft, nontender. Positive bowel sounds. EXTREMITIES: 2+ peripheral pulses, no lower extremity edema and no calf tenderness. SKIN: intact NEUROLOGIC EXAMINATION: Patient is awake, alert and oriented x3. ASSESSMENT Chest pain, atypical. An acute coronary syndrome has ruled out. Hypertension Hyperlipidemia Chronic persistant atrial fibrillation (on elquis) - in sinus mechanism on exam Type 2 diabetes Sick Sinus Syndrome s/p Permanent pacemaker implantation Coronary artery disease s/p PCI PLAN An acute coronary event has been ruled out with no EKG evidence of ischemia and negative cardiac enzymes. Obtain 2D echocardiogram and doppler study to assess cardiac structure and function. Check TSH Patient is currently on Estradiol- discussed with patient on slowly discontinuing this medication with her OBGYN due to risk of hypertension and stroke. -No acute results on patient's echocardiogram Patient can be discharged from cardiology perspective and follow up outpatient with her movable bulkhead installer. She states she has an appointment tomorrow. Nurse Practitioner note has been reviewed, I agree with a documented findings and plan of care. Patient was seen and examined. Past Medical History Past Medical History: Atrial Fibrillation, Coronary Artery Disease (CAD), Cancer, Chest Pain / Angina, Diabetes Mellitus, GERD/Reflux, Hyperlipidemia, Hypertension, Osteoarthritis (OA), Sleep Apnea/CPAP/BIPAP, Thyroid Disorder Additional Past Medical History / Comment(s): skin cancer, restless leg syndrome, varicose veins, IBS, History of Any Multi-Drug Resistant Organisms: None Reported Past Surgical History: Adenoidectomy, Appendectomy, Breast Surgery, Cholecystectomy, Heart Catheterization With Stent, Hysterectomy, Orthopedic Surgery, Pacemaker, Tonsillectomy Additional Past Surgical History / Comment(s): walt cataract, 3 stents, partial thyroidectomy, rt shoulder rotator cuff, walt breast biopsy, metal clip in rt breast Past Anesthesia/Blood Transfusion Reactions: No Reported Reaction Date of Last Stent Placement:: 1998 Type of Cardiac Device: Permanent Pacemaker, Unknown Device Placement Date:: 2014 Past Psychological History: Anxiety Smoking Status: Never smoker - Past Family History Mother Additional Family Medical History / Comment(s): Mother at age 76 from massive stroke. Brother(s) Additional Family Medical History / Comment(s): The patient had a total of 3 brothers. One brother from melanoma. One brother is with history of coronary artery disease status post CABG. One brother has from colon cancer with history of coronary artery disease. Patient does not have any sisters. Daughter(s) Family Medical History: No Reported History (Healthy 1 daughter) Son(s) History Unknown: Yes (Healthy 3 sons) Additional Family Medical History / Comment(s): Patient has 3 sons and 1 daughter. One son has history of coronary artery disease, second son has history of AICD. Patient has 1 son and 1 daughter with no major medical problems. Father Additional Family Medical History / Comment(s): Father at age 59 from a myocardial infarction. Medications and Allergies Home Medications Medication Instructions Recorded Confirmed Type Apixaban [Eliquis] 5 mg PO BID 04/19/17 01/01/21 History Ascorbic Acid [Vitamin C] 500 mg PO DAILY PRN 04/19/17 01/01/21 History glipiZIDE XL [Glucotrol XL] 2.5 mg PO AC-BRKFST 04/19/17 01/01/21 History Levothyroxine Sodium [Synthroid] 75 mcg PO DAILY 05/26/17 01/01/21 History Estradiol 0.05MG/24Hr Biwkptch 1 patch TRANSDERM SUWE 01/13/19 01/01/21 History [Vivelle-Dot 0.05 MG] Isosorbide Mononitrate ER [Imdur] 60 mg PO DAILY tab.er.24h 01/13/19 01/01/21 Rx Atorvastatin [Lipitor] 20 mg PO HS 05/09/19 01/01/21 History Isosorbide Mononitrate ER [Imdur] 90 mg PO HS 05/09/19 01/01/21 History Spironolactone [Aldactone] 25 mg PO DAILY 05/09/19 01/01/21 History ALPRAZolam [Xanax] 0.25 mg PO HS PRN 09/17/19 01/01/21 History hydrALAZINE HCL [Apresoline] 100 mg PO Q8H 09/17/19 01/01/21 History Metoprolol Tartrate [Lopressor] 100 mg PO TID 02/27/20 01/01/21 History cloNIDine HCL [Catapres] 0.1 mg PO DAILY PRN 06/16/20 01/01/21 History Furosemide [Lasix] 20 mg PO DAILY 07/05/20 01/01/21 History Aspirin 81 mg PO BID #0 chew 07/07/20 01/01/21 Rx Nitroglycerin Sl Tabs [Nitrostat] 0.4 mg SL Q5M PRN 08/02/20 01/01/21 History traMADol HCl [Ultram] 50 mg PO Q6HR PRN 3 Days #12 tab 08/04/20 01/01/21 Rx Cholecalciferol (Vitamin D3) 75 mcg PO DAILY 01/01/21 01/01/21 History [Vitamin D3 (3000 Iu)] Famotidine [Pepcid] 20 mg PO DAILY 01/01/21 01/01/21 History cloNIDine HCL [Catapres] 0.2 mg PO TID 01/01/21 01/01/21 History Allergies Allergy/AdvReac Type Severity Reaction Status Date / Time JORGITO Inhibitors Allergy Severe Swelling Verified 01/01/21 11:48 cortisone Allergy Severe Rash/Hives, Verified 01/01/21 11:48 high BP Calcium Channel Blocking AdvReac SORES IN Verified 01/01/21 11:48 Agent Dilt MOUTH dust,trees Allergy Itching Uncoded 01/01/21 11:48 Physical Exam Vitals: Vital Signs Temp Pulse Resp BP Pulse Ox 01/01/21 12:49 60 18 119/73 94 L 01/01/21 11:30 67 18 117/76 95 01/01/21 10:09 97.4 F L 77 18 126/78 96 Intake and Output 12/31/20 01/01/21 01/01/21 22:59 06:59 14:59 Other: Weight 87.997 kg Results 01/01/21 10:29 01/01/21 10:29 Cardiac Enzymes 01/01/21 01/01/21 Range/Units 10:29 10:29 AST 26 (14-36) U/L Troponin I <0.012 (0.000-0.034) ng/mL Coagulation 01/01/21 Range/Units 10: PT 11.0 (9.0-12.0) sec APTT 26.2 (22.0-30.0) sec CBC 01/01/21 Range/Units 10:29 WBC 7.8 (3.8-10.6) k/uL RBC 5.07 (3.80-5.40) m/uL Hgb 15.0 (11.4-16.0) gm/dL Hct 46.7 H (34.0-46.0) % Plt Count 222 (150-450) k/uL Comprehensive Metabolic Panel 01/01/21 Range/Units 10:29 Sodium 138 (137-145) mmol/L Potassium 4.0 (3.5-5.1) mmol/L Chloride 101 (98-107) mmol/L Carbon Dioxide 31 H (22-30) mmol/L BUN 20 H (7-17) mg/dL Creatinine 0.86 (0.52-1.04) mg/dL Glucose 155 H (74-99) mg/dL Calcium 9.8 (8.4-10.2) mg/dL AST 26 (14-36) U/L ALT 25 (4-34) U/L Alkaline Phosphatase 82 (38-126) U/L Total Protein 6.6 (6.3-8.2) g/dL Albumin 3.9 (3.5-5.0) g/dL Current Medications Generic Name Dose Route Start Last Admin Trade Name Freq PRN Reason Stop Dose Admin Acetaminophen 650 mg 01/01/21 12:32 Acetaminophen Tab 325 Mg Tab PO Q6HR PRN Mild Pain or Fever > 100.5 Naloxone HCl 0.2 mg 01/01/21 12:32 Naloxone 0.4 Mg/Ml 1 Ml Vial IV Q2M PRN Opioid Reversal Intake and Output 12/31/20 01/01/21 01/01/21 22:59 06:59 14:59 Other: Weight 87.997 kg Patient Weight 01/02/21 06:59 Weight 87.997 kg 01/01/21 10:29 01/01/21 10:29
[2021-01-02 16:27] VITALS: BP 158/89; PULSE 85
--- NOTE | 2021-01-02 17:00 | ECHOF ---
Referral Reason:palpitations, chest pain MEASUREMENTS -------- HEIGHT: 165.1 cm WEIGHT: 88.0 kg BP: 133/80 IVSd: 1.7 cm (0.6 - 1.1) LVIDd: 3.9 cm (3.9 - 5.3) LVPWd: 1.7 cm (0.6 - 1.1) EDV(Teich): 65 ml IVSs: 2.2 cm LVIDs: 2.9 cm LVPWs: 2.3 cm %IVS Thck: 28 % ESV(Teich): 31 ml EF(Teich): 53 % %FS: 27 % SV(Teich): 34 ml RVIDd: 3.5 cm (< 3.3) RA Diam: 5.0 cm LALs A4C: 5.7 cm LAAs A4C: 24.7 cm LAESV A-L A4C: 91 ml LAESV MOD A4C: 85 ml LALs A2C: 5.1 cm LAAs A2C: 18.3 cm LAESV A-L A2C: 56 ml LAESV MOD A2C: 54 ml LAESV(A-L): 75 ml LAESV Index (A-L): 38.46 ml/m Ao Diam: 3.5 cm (2.0 - 3.7) LA Diam: 4.2 cm (2.7 - 3.8) AV Cusp: 1.2 cm (1.5 - 2.6) EPSS: 0.5 cm LVOT Vmax: 1.09 m/s LVOT maxP.73 mmHg AV Vmax: 1.79 m/s AV maxP.89 mmHg TR Vmax: 2.27 m/s TR maxP.69 mmHg RAP: 5.00 mmHg RVSP: 25.69 mmHg MV EF SLOPE: 35.26 mm/s (70 - 150) MV EXCURSION: 14.58 mm (> 18.000) FINDINGS -------- This was a technically adequate study. The left ventricular size is normal. There is moderate concentric left ventricular hypertrophy. O verall left ventricular systolic function is normal with, an EF between 55 - 60 %. The right ventricle is moderately enlarged. LA is moderately dilated 34-39 ml/m2 The right atrium is mildly enlarged. Electronic pacemaker lead seen in the right atrial cavity. Interatrial and interventricular septum intact. There is mild to moderate aortic valve sclerosis. There is no evidence of aortic regurgitation. T here is no evidence of aortic stenosis. Moderate mitral annular calcification present. Moderate mitral regurgitation is present. Mild tricuspid regurgitation present. There is no evidence of pulmonary hypertension. The right v entricular systolic pressure, as measured by Doppler, is 25.69mmHg. There is no pulmonic regurgitation present. The aortic root size is normal. IVC Not well visulized. There is no pericardial effusion. CONCLUSIONS -------- 1. The left ventricular size is normal. 2. There is moderate concentric left ventricular hypertrophy. 3. Overall left ventricular systolic function is normal with, an EF between 55 - 60 %. 4. The right ventricle is moderately enlarged. 5. LA is moderately dilated 34-39 ml/m2 6. The right atrium is mildly enlarged. 7. There is mild to moderate aortic valve sclerosis. 8. Moderate mitral annular calcification present. 9. Moderate mitral regurgitation is present. 10. Mild tricuspid regurgitation present. TOP DYEING MACHINE LOADER: Suha Dominique RDCS
== END 2021-01-02 17:48 | disposition home or self-care (01) ==
LOC: EC 10:08 → 6NMEDSUR 12:32
PROVIDERS: ADMIT Internal Medicine Geriatric Medicine; ATTEND Internal Medicine Geriatric Medicine
DX: R07.89 Other chest pain (principal); I48.19 Other persistent atrial fibrillation; I16.0 Hypertensive urgency; I11.0 Hypertensive heart disease with heart failure; I50.32 Chronic diastolic (congestive) heart failure; I25.119 Atherosclerotic heart disease of native coronary artery with unspecified angina pectoris; E11.40 Type 2 diabetes mellitus with diabetic neuropathy, unspecified; E78.5 Hyperlipidemia, unspecified; E89.0 Postprocedural hypothyroidism; F41.9 Anxiety disorder, unspecified; I27.20 Pulmonary hypertension, unspecified; I08.3 Combined rheumatic disorders of mitral, aortic and tricuspid valves; I49.5 Sick sinus syndrome; G47.30 Sleep apnea, unspecified; K21.9 Gastro-esophageal reflux disease without esophagitis; M19.90 Unspecified osteoarthritis, unspecified site; G25.81 Restless legs syndrome; I83.90 Asymptomatic varicose veins of unspecified lower extremity; K58.9 Irritable bowel syndrome, unspecified; Z20.822 Contact with and (suspected) exposure to COVID-19; Z79.01 Long term (current) use of anticoagulants; Z79.84 Long term (current) use of oral hypoglycemic drugs; Z79.890 Hormone replacement therapy; Z79.899 Other long term (current) drug therapy; Z79.82 Long term (current) use of aspirin; Z88.8 Allergy status to other drugs, medicaments and biological substances; Z91.048 Other nonmedicinal substance allergy status; Z85.828 Personal history of other malignant neoplasm of skin; Z95.0 Presence of cardiac pacemaker; Z90.49 Acquired absence of other specified parts of digestive tract; Z95.5 Presence of coronary angioplasty implant and graft; Z98.42 Cataract extraction status, left eye; Z98.41 Cataract extraction status, right eye; Z98.890 Other specified postprocedural states; Z82.3 Family history of stroke; Z80.8 Family history of malignant neoplasm of other organs or systems; Z80.0 Family history of malignant neoplasm of digestive organs; Z82.49 Family history of ischemic heart disease and other diseases of the circulatory system; Z66 Do not resuscitate
CPT/HCPCS: 93005 ×2; 99285; 36415; 93306; 80053; 84443; 83735; 84484; 85025; 85610; 85730; 87635; 71046; G0378 ×2

== ENCOUNTER 2021-01-05 13:55 | Emergency (ER) | payer MEDICARE ==
[2021-01-05 14:08] VITALS: RESP 18; TEMP 98.2
[2021-01-05] MEDS ORDERED: TOPICAL SKIN ADHESIVE 1 EACH AMP TOPICAL ONE (14:23)
--- NOTE | 2021-01-05 14:28 | ED ---
General Adult HPI - General Chief complaint: Fall Stated complaint: Fall Time Seen by Provider: 01/05/21 14:03 Source: patient, EMS, RN notes reviewed Mode of arrival: EMS Limitations: no limitations - History of Present Illness Initial comments: Patient is a pleasant 89-year-old female presenting to the emergency department following a fall. Patient was outside walking in the rain and not using her walker. Patient did strike her face. Patient is on Eliquis. This was from a standing position. Tetanus immunization is less than 10 years. Patient has discomfort of her nose as well as her knees and right elbow. No loss of consciousness. No weakness or confusion. - Related Data Home Medications Medication Instructions Recorded Confirmed Apixaban [Eliquis] 5 mg PO BID 04/19/17 01/05/21 Ascorbic Acid [Vitamin C] 500 mg PO DAILY PRN 04/19/17 01/05/21 glipiZIDE XL [Glucotrol XL] 2.5 mg PO AC-BRKFST 04/19/17 01/05/21 Levothyroxine Sodium [Synthroid] 75 mcg PO DAILY 05/26/17 01/05/21 Estradiol 0.05MG/24Hr Biwkptch 1 patch TRANSDERM SUWE 01/13/19 01/05/21 [Vivelle-Dot 0.05 MG] Atorvastatin [Lipitor] 20 mg PO HS 05/09/19 01/05/21 Isosorbide Mononitrate ER [Imdur] 90 mg PO HS 05/09/19 01/05/21 Spironolactone [Aldactone] 25 mg PO DAILY 05/09/19 01/05/21 ALPRAZolam [Xanax] 0.25 mg PO HS PRN 09/17/19 01/05/21 hydrALAZINE HCL [Apresoline] 100 mg PO Q8H 09/17/19 01/05/21 Metoprolol Tartrate [Lopressor] 100 mg PO TID 02/27/20 01/05/21 cloNIDine HCL [Catapres] 0.1 mg PO DAILY PRN 06/16/20 01/05/21 Furosemide [Lasix] 20 mg PO DAILY 07/05/20 01/05/21 Nitroglycerin Sl Tabs [Nitrostat] 0.4 mg SL Q5M PRN 08/02/20 01/05/21 Cholecalciferol (Vitamin D3) 75 mcg PO DAILY 01/01/21 01/05/21 [Vitamin D3 (3000 Iu)] Famotidine [Pepcid] 20 mg PO DAILY 01/01/21 01/05/21 cloNIDine HCL [Catapres] 0.2 mg PO TID 01/01/21 01/05/21 Triamcinolone 0.1% Lotion [Kenalog 1 applic TOPICAL BID 01/05/21 01/05/21 0.1% Lotion] Previous Rx's Medication Instructions Recorded Isosorbide Mononitrate ER [Imdur] 60 mg PO DAILY tab.er.24h 01/13/19 Aspirin 81 mg PO BID #0 chew 07/07/20 traMADol HCl [Ultram] 50 mg PO Q6HR PRN 3 Days #12 tab 08/04/20 Allergies Allergy/AdvReac Type Severity Reaction Status Date / Time JORGITO Inhibitors Allergy Severe Swelling Verified 01/05/21 15:58 cortisone Allergy Severe Rash/Hives, Verified 01/05/21 15:58 high BP Calcium Channel Blocking AdvReac SORES IN Verified 01/05/21 15:58 Agent Dilt MOUTH dust,trees Allergy Itching Uncoded 01/05/21 14:09 Review of Systems ROS Statement: Those systems with pertinent positive or pertinent negative responses have been documented in the HPI. ROS Other: All systems not noted in ROS Statement are negative. Constitutional: Denies: fever Eyes: Denies: eye pain Respiratory: Denies: cough Cardiovascular: Denies: chest pain Endocrine: Denies: fatigue Gastrointestinal: Denies: abdominal pain Genitourinary: Denies: dysuria Musculoskeletal: Denies: back pain Skin: Reports: as per HPI (Abrasion) Neurological: Reports: headache. Denies: weakness, confusion Past Medical History Past Medical History: Atrial Fibrillation, Coronary Artery Disease (CAD), Cancer, Chest Pain / Angina, Diabetes Mellitus, GERD/Reflux, Hyperlipidemia, Hypertension, Osteoarthritis (OA), Sleep Apnea/CPAP/BIPAP, Thyroid Disorder Additional Past Medical History / Comment(s): skin cancer, restless leg syndrome, varicose veins, IBS, History of Any Multi-Drug Resistant Organisms: None Reported Past Surgical History: Adenoidectomy, Appendectomy, Breast Surgery, Cholecystectomy, Heart Catheterization With Stent, Hysterectomy, Orthopedic Surgery, Pacemaker, Tonsillectomy Additional Past Surgical History / Comment(s): walt cataract, 3 stents, partial thyroidectomy, rt shoulder rotator cuff, walt breast biopsy, metal clip in rt breast Past Anesthesia/Blood Transfusion Reactions: No Reported Reaction Date of Last Stent Placement:: 1998 Type of Cardiac Device: Permanent Pacemaker, Unknown Device Placement Date:: 2014 Past Psychological History: Anxiety Smoking Status: Never smoker - Past Family History Mother Additional Family Medical History / Comment(s): Mother at age 76 from massive stroke. Brother(s) Additional Family Medical History / Comment(s): The patient had a total of 3 brothers. One brother from melanoma. One brother is with history of coronary artery disease status post CABG. One brother has from colon cancer with history of coronary artery disease. Patient does not have any sisters. Daughter(s) Family Medical History: No Reported History (Healthy 1 daughter) Son(s) History Unknown: Yes (Healthy 3 sons) Additional Family Medical History / Comment(s): Patient has 3 sons and 1 daughter. One son has history of coronary artery disease, second son has history of AICD. Patient has 1 son and 1 daughter with no major medical problems. Father Additional Family Medical History / Comment(s): Father at age 59 from a myocardial infarction. General Exam Limitations: no limitations General appearance: alert, in no apparent distress Head exam: Present: normocephalic Eye exam: Present: normal appearance, PERRL, EOMI ENT exam: Present: normal oropharynx, other (Nasal abrasion and tenderness. No nasal septal hematoma) Neck exam: Present: normal inspection, full ROM. Absent: tenderness, meningismus Respiratory exam: Present: normal lung sounds bilaterally Cardiovascular Exam: Present: regular rate, normal rhythm GI/Abdominal exam: Present: soft. Absent: tenderness Extremities exam: Present: other (Mild to moderate tenderness of the right elbow, right knee, and right hand near the third MCP) Neurological exam: Present: alert, oriented X3, CN II-XII intact. Absent: motor sensory deficit Expanded Neurological exam: Present: protecting the airway Speech: Present: fluid speech Cranial nerves: EOM's Intact: Normal Motor strength exam: RUE: 5, LUE: 5, RLE: 5, LLE: 5 Eye Response: (4) open spontaneously Motor Response: (6) obeys commands Verbal Response: (5) oriented Psychiatric exam: Present: normal affect, normal mood Skin exam: Present: abrasion (Right hand), other (Forehead and nose lacerations) Course Vital Signs 01/05/21 01/05/21 13:57 15:27 Temperature 98.2 F Pulse Rate 78 60 Respiratory 18 18 Rate Blood Pressure 162/100 156/83 O2 Sat by Pulse 96 95 Oximetry Procedures - Laceration Laceration #1 Consent Obtained: verbal consent Indication: laceration Site: face Size (cm): 2 Description: linear Depth: simple, single layer Pre-repair: wound explored, irrigated extensively Type of Sutures: other (Closed with exofin skin adhesive) Patient Tolerated Procedure: well, no complications Laceration #2 Consent Obtained: verbal consent Indication: laceration Site: face (Nose) Size (cm): 1 Description: linear Depth: simple, single layer Pre-repair: wound explored, irrigated extensively Type of Sutures: other (Superficial closed with exofin skin adhesive) Patient Tolerated Procedure: well, no complications Medical Decision Making - Medical Decision Making Patient reevaluated and updated. Patient advised to hold anticoagulants 1-2 days. - Radiology Data Radiology results: report reviewed (Computed tomography scan of brain shows no acute intercranial abnormality.), image reviewed (X-ray of nasal bones shows fracture. X-ray of right hand, right elbow, right knee reveals no acute abnormality.) Disposition Clinical Impression: Fall, Nasal fracture, Facial laceration Disposition: HOME SELF-CARE Condition: Stable Instructions (If sedation given, give patient instructions): Fall Prevention (ED), Head Injury (ED), Nasal Fracture (ED) Additional Instructions: Ice to affected area as needed. Hold Eliquis for 2 days. Return for confusion, weakness, change in mental status, bleeding, worsening symptoms or any other concerns. Is patient prescribed a controlled substance at d/c from ED?: No Referrals: Karlo Locke MD [Primary Care Provider] - 1-2 days Time of Disposition: 16:35
--- NOTE | 2021-01-05 14:51 | CT ---
EXAMINATION TYPE: CT brain wo con DATE OF EXAM: 01/05/2021 COMPARISON: 08/04/2020 HISTORY: Fall, frontal injury. CT DLP: 1087.[address] of the brain was performed. The ventricles, basal cisterns and sulci overlying the cerebral convexities demonstrate mild enlargem ent. There is no evidence for intracranial hemorrhage or sulcal effacement. There is decreased attenuation about the periventricular white matter and deep white matter of both c erebral hemispheres, compatible with chronic small vessel ischemia. Differential diagnosis does inclu de demyelination. No mass effects are seen.No midline shift. Osseous calvarium is intact. Large midline frontal scalp hematoma. If symptoms persist consider MRI. IMPRESSION: 1. Age related atrophic and chronic small vessel ischemic change without acute intracranial process s een at this time.
--- NOTE | 2021-01-05 15:05 | XR ---
EXAMINATION TYPE: XR knee complete RT DATE OF EXAM: 01/05/2021 CLINICAL HISTORY: pain TECHNIQUE: Three views of the right knee are obtained. COMPARISON: None. FINDINGS: There is no acute fracture/dislocation. The tri-compartment joint spaces appear moderatel y narrowed. The overlying soft tissue appears unremarkable. IMPRESSION: There is no acute fracture or dislocation.ICD 10 NO FRACTURE, INITIAL EVALUATION
--- NOTE | 2021-01-05 15:07 | XR ---
EXAMINATION TYPE: XR elbow complete RT DATE OF EXAM: 01/05/2021 CLINICAL HISTORY: pain TECHNIQUE: Frontal, lateral and oblique images of the right elbow are obtained. COMPARISON: None. FINDINGS: There is no acute fracture/dislocation evident of the elbow. 2 well-corticated ossific de nsities adjacent to the lateral collateral ligament may reflect remote avulsion fracture or ligament ous calcification. There is associated spur formation. No abnormal fat pad signs are seen. The overl wendy soft tissue appears unremarkable. IMPRESSION: There is no acute fracture or dislocation of the elbow. ICD 10 NO FRACTURE, INITIAL EVALUATION
--- NOTE | 2021-01-05 15:14 | XR ---
EXAMINATION TYPE: XR hand complete RT DATE OF EXAM: 01/05/2021 CLINICAL HISTORY: Fall TECHNIQUE: Frontal, lateral and oblique images of the right hand are obtained. COMPARISON: 08/05/2020 FINDINGS: There is no definite evidence of fracture or dislocation of the right hand. Diffuse bony de mineralization. Narrowing of the radiocarpal joint space. Narrowing of the carpometacarpal joint spac e of the first digit suggestive of osteoarthritis. Multiple subchondral cysts of the carpals with int ercarpal joint space narrowing. There is also narrowing of the DIP joints diffusely with tiny osteoph ytes. Soft tissues are unremarkable. IMPRESSION: 1. No evidence of acute fracture or dislocation of the right hand. 2. Osteoarthritis of the carpometacarpal joint of the first digit and DIP joints diffusely.
--- NOTE | 2021-01-05 15:25 | XR ---
EXAMINATION TYPE: XR nasal bone DATE OF EXAM: 01/05/2021 COMPARISON: None HISTORY: Fall FINDINGS: 2 crosstable lateral views and a PA De La Paz' view of the nasal bone were obtained. There is a vertical lucency through the nasal bone suggestive of a acute fracture. Overlying soft tissue emphy sema. IMPRESSION: 1. Vertical lucency through the nasal bones. This is suggestive of an acute fracture. Overlying soft tissue emphysema.
[2021-01-05 15:27] VITALS: PULSE 60
[2021-01-05] MEDS ORDERED: traMADol 50 MG TAB PO STA (16:15)
[2021-01-05] MEDS ORDERED: METOPROLOL TARTRATE 50 MG TAB PO STA (16:15)
[2021-01-05] MEDS ORDERED: hydrALAZINE HCL 50 MG TAB PO STA (16:18)
[2021-01-05 16:46] VITALS: BP 164/85
== END 2021-01-05 17:36 | disposition home or self-care (01) ==
LOC: EC 13:55
DX: S02.2XXA Fracture of nasal bones, initial encounter for closed fracture (principal); E11.36 Type 2 diabetes mellitus with diabetic cataract; E78.5 Hyperlipidemia, unspecified; I25.10 Atherosclerotic heart disease of native coronary artery without angina pectoris; I10 Essential (primary) hypertension; F41.9 Anxiety disorder, unspecified; I48.91 Unspecified atrial fibrillation; K21.9 Gastro-esophageal reflux disease without esophagitis; K58.9 Irritable bowel syndrome, unspecified; M19.041 Primary osteoarthritis, right hand; M19.90 Unspecified osteoarthritis, unspecified site; G25.81 Restless legs syndrome; Z79.01 Long term (current) use of anticoagulants; Z79.82 Long term (current) use of aspirin; Z79.84 Long term (current) use of oral hypoglycemic drugs; Z82.49 Family history of ischemic heart disease and other diseases of the circulatory system; Z85.828 Personal history of other malignant neoplasm of skin; Z95.0 Presence of cardiac pacemaker; S01.21XA Laceration without foreign body of nose, initial encounter; W19.XXXA Unspecified fall, initial encounter; Y93.01 Activity, walking, marching and hiking
CPT/HCPCS: 12013; 70160; 70450; 99284

== ENCOUNTER 2021-01-07 12:01 | Emergency (ER) | payer MEDICARE ==
[2021-01-07 12:10] VITALS: BP 136/74; PULSE 71; RESP 18; TEMP 98
--- NOTE | 2021-01-07 12:44 | ED ---
General Adult HPI - General Chief complaint: Trauma Stated complaint: revisit/fall/facial swelling Time Seen by Provider: 01/07/21 12:13 Source: patient, RN notes reviewed Mode of arrival: ambulatory Limitations: no limitations - History of Present Illness Initial comments: Patient is a pleasant 89-year-old female presenting to the emergency department for facial swelling. Patient was in the emergency department 2 days ago following a fall. Patient did sustain lacerations to her nose and forehead. Patient also sustained nasal fracture. Patient states she did hold her Eliquis. Patient has no significant headaches. No visual changes. No confusion. No weakness. No persistent vomiting. Patient states there is mild discomfort from the swelling. Patient has swelling of her forehead as well as bilateral face. Patient was also noticed ecchymosis. No significant facial pain. No active bleeding. - Related Data Home Medications Medication Instructions Recorded Confirmed Apixaban [Eliquis] 5 mg PO BID 04/19/17 01/05/21 Ascorbic Acid [Vitamin C] 500 mg PO DAILY PRN 04/19/17 01/05/21 glipiZIDE XL [Glucotrol XL] 2.5 mg PO AC-BRKFST 04/19/17 01/05/21 Levothyroxine Sodium [Synthroid] 75 mcg PO DAILY 05/26/17 01/05/21 Estradiol 0.05MG/24Hr Biwkptch 1 patch TRANSDERM SUWE 01/13/19 01/05/21 [Vivelle-Dot 0.05 MG] Atorvastatin [Lipitor] 20 mg PO HS 05/09/19 01/05/21 Isosorbide Mononitrate ER [Imdur] 90 mg PO HS 05/09/19 01/05/21 Spironolactone [Aldactone] 25 mg PO DAILY 05/09/19 01/05/21 ALPRAZolam [Xanax] 0.25 mg PO HS PRN 09/17/19 01/05/21 hydrALAZINE HCL [Apresoline] 100 mg PO Q8H 09/17/19 01/05/21 Metoprolol Tartrate [Lopressor] 100 mg PO TID 02/27/20 01/05/21 cloNIDine HCL [Catapres] 0.1 mg PO DAILY PRN 06/16/20 01/05/21 Furosemide [Lasix] 20 mg PO DAILY 07/05/20 01/05/21 Nitroglycerin Sl Tabs [Nitrostat] 0.4 mg SL Q5M PRN 08/02/20 01/05/21 Cholecalciferol (Vitamin D3) 75 mcg PO DAILY 01/01/21 01/05/21 [Vitamin D3 (3000 Iu)] Famotidine [Pepcid] 20 mg PO DAILY 01/01/21 01/05/21 cloNIDine HCL [Catapres] 0.2 mg PO TID 01/01/21 01/05/21 Triamcinolone 0.1% Lotion [Kenalog 1 applic TOPICAL BID 01/05/21 01/05/21 0.1% Lotion] Previous Rx's Medication Instructions Recorded Isosorbide Mononitrate ER [Imdur] 60 mg PO DAILY tab.er.24h 01/13/19 Aspirin 81 mg PO BID #0 chew 07/07/20 traMADol HCl [Ultram] 50 mg PO Q6HR PRN 3 Days #12 tab 08/04/20 Allergies Allergy/AdvReac Type Severity Reaction Status Date / Time JORGITO Inhibitors Allergy Severe Swelling Verified 01/05/21 15:58 cortisone Allergy Severe Rash/Hives, Verified 01/05/21 15:58 high BP Calcium Channel Blocking AdvReac SORES IN Verified 01/05/21 15:58 Agent Dilt MOUTH dust,trees Allergy Itching Uncoded 01/05/21 14:09 Review of Systems ROS Statement: Those systems with pertinent positive or pertinent negative responses have been documented in the HPI. ROS Other: All systems not noted in ROS Statement are negative. Constitutional: Denies: fever Eyes: Denies: eye pain, eye discharge, vision change ENT: Denies: ear pain Respiratory: Denies: cough Cardiovascular: Denies: chest pain Endocrine: Denies: fatigue Gastrointestinal: Denies: abdominal pain Genitourinary: Denies: dysuria Musculoskeletal: Denies: back pain Skin: Reports: as per HPI Neurological: Denies: headache, weakness, confusion, abnormal gait Past Medical History Past Medical History: Atrial Fibrillation, Coronary Artery Disease (CAD), C ancer, Chest Pain / Angina, Diabetes Mellitus, GERD/Reflux, Hyperlipidemia, Hypertension, Osteoarthritis (OA), Sleep Apnea/CPAP/BIPAP, Thyroid Disorder Additional Past Medical History / Comment(s): skin cancer, restless leg syndrome, varicose veins, IBS, History of Any Multi-Drug Resistant Organisms: None Reported Past Surgical History: Adenoidectomy, Appendectomy, Breast Surgery, Cholecystectomy, Heart Catheterization With Stent, Hysterectomy, Orthopedic Surgery, Pacemaker, Tonsillectomy Additional Past Surgical History / Comment(s): walt cataract, 3 stents, partial thyroidectomy, rt shoulder rotator cuff, walt breast biopsy, metal clip in rt breast Past Anesthesia/Blood Transfusion Reactions: No Reported Reaction Date of Last Stent Placement:: 1998 Type of Cardiac Device: Permanent Pacemaker, Unknown Device Placement Date:: 2014 Past Psychological History: Anxiety Smoking Status: Never smoker - Past Family History Mother Additional Family Medical History / Comment(s): Mother at age 76 from massive stroke. Brother(s) Additional Family Medical History / Comment(s): The patient had a total of 3 brothers. One brother from melanoma. One brother is with history of coronary artery disease status post CABG. One brother has from colon cancer with history of coronary artery disease. Patient does not have any sisters. Daughter(s) Family Medical History: No Reported History (Healthy 1 daughter) Son(s) History Unknown: Yes (Healthy 3 sons) Additional Family Medical History / Comment(s): Patient has 3 sons and 1 daughter. One son has history of coronary artery disease, second son has history of AICD. Patient has 1 son and 1 daughter with no major medical problems. Father Additional Family Medical History / Comment(s): Father at age 59 from a myocardial infarction. General Exam Limitations: no limitations General appearance: alert, in no apparent distress Head exam: Present: other (Hematoma forehead with pooling of blood down to the upper face. There is associated ecchymosis. No tenderness.) Eye exam: Present: normal appearance, PERRL, EOMI Neck exam: Present: normal inspection Respiratory exam: Present: normal lung sounds bilaterally Cardiovascular Exam: Present: regular rate, normal rhythm GI/Abdominal exam: Present: soft. Absent: tenderness Extremities exam: Present: normal inspection, full ROM. Absent: tenderness Neurological exam: Present: alert, CN II-XII intact. Absent: motor sensory deficit Expanded Cranial nerves: EOM's Intact: Normal Eye Response: (4) open spontaneously Motor Response: (6) obeys commands Verbal Response: (5) oriented Psychiatric exam: Present: normal affect, normal mood Skin exam: Present: other (Ecchymosis) Course Vital Signs 01/07/21 12:07 Temperature 98.0 F Pulse Rate 71 Respiratory 18 Rate Blood Pressure 136/74 O2 Sat by Pulse 97 Oximetry Medical Decision Making - Medical Decision Making Hematoma of the forehead is actually decreased in size however slightly wider. There is some pooling and ecchymosis of the upper face. Also nontender. Symptoms are consistent with patient with forehead injury with previous substantial hematoma and on Eliquis. Previous CT reviewed. Disposition Clinical Impression: Facial hematoma Disposition: HOME SELF-CARE Condition: Stable Instructions (If sedation given, give patient instructions): Hematoma (ED), Head Injury (ED) Additional Instructions: Continue to hold Eliquis for the next day, possibly 2. Follow-up with Dr. Chucky Sevilla. Return for any confusion, change in mental status, visual changes, vomiting, weakness, worsening symptoms or any other concerns. Continue to ice affected areas. Is patient prescribed a controlled substance at d/c from ED?: No Referrals: Karlo Locke MD [Primary Care Provider] - 1-2 days Time of Disposition: 12:44
== END 2021-01-07 12:52 | disposition home or self-care (01) ==
LOC: EC 12:01
DX: S00.83XA Contusion of other part of head, initial encounter (principal); I48.91 Unspecified atrial fibrillation; I25.10 Atherosclerotic heart disease of native coronary artery without angina pectoris; E11.36 Type 2 diabetes mellitus with diabetic cataract; E78.5 Hyperlipidemia, unspecified; F41.9 Anxiety disorder, unspecified; I10 Essential (primary) hypertension; K21.9 Gastro-esophageal reflux disease without esophagitis; M19.90 Unspecified osteoarthritis, unspecified site; G47.33 Obstructive sleep apnea (adult) (pediatric); Z99.81 Dependence on supplemental oxygen; Z90.89 Acquired absence of other organs; Z90.49 Acquired absence of other specified parts of digestive tract; Z95.5 Presence of coronary angioplasty implant and graft; Z90.710 Acquired absence of both cervix and uterus; Z90.09 Acquired absence of other part of head and neck; Z79.82 Long term (current) use of aspirin; Z79.84 Long term (current) use of oral hypoglycemic drugs; Z85.828 Personal history of other malignant neoplasm of skin; W19.XXXA Unspecified fall, initial encounter
CPT/HCPCS: 99283

== ENCOUNTER → 2021-01-16 | Outpatient (CLI) | payer MEDICARE ==
--- NOTE | 2021-01-16 17:31 | CT ---
EXAMINATION TYPE: CT brain wo con DATE OF EXAM: 01/16/2021 COMPARISON: 01/05/2021 HISTORY: headache x11 days post fall, on eloquist CT DLP: 985.1 mGycm Automated exposure control for dose reduction was used. There is cerebral cortical atrophy. There is no mass effect nor midline shift. There is no sign of in tracranial hemorrhage. There is 1 x 2 cm frontal scalp hematoma. The calvarium is intact. The skull b ase is intact. IMPRESSION: Frontal scalp hematoma slightly smaller than old exam. Cerebral atrophy. No acute intracranial abnorm ality. No change.
== END | disposition home or self-care (01) ==
LOC: RADCTMAIN 16:38
PROVIDERS: ATTEND Internal Medicine Geriatric Medicine
DX: S00.03XA Contusion of scalp, initial encounter (principal); W19.XXXA Unspecified fall, initial encounter
CPT/HCPCS: 70450

== ENCOUNTER 2021-07-14 08:06 | Observation (INO) | payer MEDICARE ==
[2021-07-14] MEDS ORDERED: SODIUM CHLORIDE 0.9% 500 ML 500 ML IV STA (08:34)
[2021-07-14 08:37] LABS: Glucose,Whole Blood 153 mg/dL (75-99)
[2021-07-14 08:40] LABS: Basophils # (A) 0.1 k/uL (0-0.2); Basophils % (A) 1 %; Eosinophils # (A) 0.1 k/uL (0-0.7); Eosinophils % (A) 2 %; HCT 47.2 % (34.0-46.0); HGB 15.6 gm/dL (11.4-16.0); Lymphocytes # (A) 1.5 k/uL (1.0-4.8); Lymphocytes % (A) 18 %; MCH 31.6 pg (25.0-35.0); MCHC 33.1 g/dL (31.0-37.0); MCV 95.6 fL (80.0-100.0); Mean Platelet Volume 7.9; Monocytes # (A) 0.8 k/uL (0-1.0); Monocytes % (A) 9 %; Neutrophils # (A) 5.7 k/uL (1.3-7.7); Neutrophils % (A) 69 %; Platelet Count 230 k/uL (150-450); RBC 4.94 m/uL (3.80-5.40); RDW 12.6 % (11.5-15.5); WBC 8.3 k/uL (3.8-10.6)
--- NOTE | 2021-07-14 08:42 | ED ---
General Adult HPI - General Chief complaint: Neuro Symptoms/Deficit Stated complaint: Facial Numbness Time Seen by Provider: 07/14/21 08:15 Source: patient, RN notes reviewed, old records reviewed Mode of arrival: ambulatory Limitations: no limitations - History of Present Illness Initial comments: This is an 89-year-old female presents emergency department stating she went to bed last evening at 11:30 and woke up this morning at 6 AM. Patient states at 6 AM she felt a little numbness to the right side of her lower lip and up into the right cheek. Patient states is also a slight amount of pain in that area as well. Patient states it felt swollen but didn't look swollen. Patient denied any redness patient denies any trauma patient denied any rashes. Patient states she was told in the past she's had a TIA. Patient has a pacemaker diabetes high blood pressure and high cholesterol. Patient denies any visual disturbance. Patient denies any numbness weakness of any extremities. Patient denies any coordination breath. - Related Data Home Medications Medication Instructions Recorded Confirmed Apixaban [Eliquis] 5 mg PO Q12H 04/19/17 07/14/21 Ascorbic Acid [Vitamin C] 1,000 mg PO DAILY 04/19/17 07/14/21 glipiZIDE XL [Glucotrol XL] 2.5 mg PO AC-BRKFST 04/19/17 07/14/21 Levothyroxine Sodium [Synthroid] 75 mcg PO DAILY 05/26/17 07/14/21 Estradiol 0.05MG/24Hr Biwkptch 1 patch TRANSDERM SUWE 01/13/19 07/14/21 [Vivelle-Dot 0.05 MG] Atorvastatin [Lipitor] 20 mg PO HS 05/09/19 07/14/21 Isosorbide Mononitrate ER [Imdur] 90 mg PO HS 05/09/19 07/14/21 Spironolactone [Aldactone] 25 mg PO DAILY PRN 05/09/19 07/14/21 ALPRAZolam [Xanax] 0.25 mg PO BID PRN 09/17/19 07/14/21 hydrALAZINE HCL [Apresoline] 100 mg PO TID 09/17/19 07/14/21 Metoprolol Tartrate [Lopressor] 100 mg PO TID 02/27/20 07/14/21 cloNIDine HCL [Catapres] 0.1 mg PO TID PRN 06/16/20 07/14/21 Furosemide [Lasix] 20 mg PO DAILY 07/05/20 07/14/21 Nitroglycerin Sl Tabs [Nitrostat] 0.4 mg SL Q5M PRN 08/02/20 07/14/21 Cholecalciferol (Vitamin D3) 75 mcg PO DAILY 01/01/21 07/14/21 [Vitamin D3 (3000 Iu)] Famotidine [Pepcid] 20 mg PO DAILY PRN 01/01/21 07/14/21 cloNIDine HCL [Catapres] 0.2 mg PO TID 01/01/21 07/14/21 Cyanocobalamin (Vitamin B-12) 500 mcg PO DAILY 07/14/21 07/14/21 [Vitamin B-12] Vitamin E 400 unit PO DAILY 07/14/21 07/14/21 Previous Rx's Medication Instructions Recorded Isosorbide Mononitrate ER [Imdur] 60 mg PO DAILY tab.er.24h 01/13/19 Aspirin 81 mg PO BID #0 chew 07/07/20 traMADol HCl [Ultram] 50 mg PO Q6HR PRN 3 Days #12 tab 08/04/20 Allergies Allergy/AdvReac Type Severity Reaction Status Date / Time JORGITO Inhibitors Allergy Severe Swelling Verified 07/14/21 11:14 cortisone Allergy Severe Rash/Hives, Verified 07/14/21 11:14 high BP Calcium Channel Blocking AdvReac SORES IN Verified 07/14/21 11:14 Agent Dilt MOUTH sitagliptin [From Januvia] AdvReac Rapid Verified 07/14/21 11:16 Heart Rate dust,trees Allergy Itching Uncoded 07/14/21 08:16 Review of Systems ROS Statement: Those systems with pertinent positive or pertinent negative responses have been documented in the HPI. ROS Other: All systems not noted in ROS Statement are negative. Past Medical History Past Medical History: Atrial Fibrillation, Coronary Artery Disease (CAD), Cancer, Chest Pain / Angina, Diabetes Mellitus, GERD/Reflux, Hyperlipidemia, Hypertension, Osteoarthritis (OA), Sleep Apnea/CPAP/BIPAP, Thyroid Disorder Additional Past Medical History / Comment(s): skin cancer, restless leg syndrome, varicose veins, IBS, History of Any Multi-Drug Resistant Organisms: None Reported Past Surgical History: Adenoidectomy, Appendectomy, Breast Surgery, Cholecystectomy, Heart Catheterization With Stent, Hysterectomy, Orthopedic Surgery, Pacemaker, Tonsillectomy Additional Past Surgical History / Comment(s): walt cataract, 3 stents, partial thyroidectomy, rt shoulder rotator cuff, walt breast biopsy, metal clip in rt breast Past Anesthesia/Blood Transfusion Reactions: No Reported Reaction Date of Last Stent Placement:: 1998 Type of Cardiac Device: Permanent Pacemaker, Unknown Device Placement Date:: 2014 Past Psychological History: Anxiety Smoking Status: Never smoker Past Alcohol Use History: None Reported Past Drug Use History: None Reported - Past Family History Mother Additional Family Medical History / Comment(s): Mother at age 76 from massive stroke. Brother(s) Additional Family Medical History / Comment(s): The patient had a total of 3 brothers. One brother from melanoma. One brother is with history of coronary artery disease status post CABG. One brother has from colon cancer with history of coronary artery disease. Patient does not have any si sters. Daughter(s) Family Medical History: No Reported History (Healthy 1 daughter) Son(s) History Unknown: Yes (Healthy 3 sons) Additional Family Medical History / Comment(s): Patient has 3 sons and 1 daughter. One son has history of coronary artery disease, second son has history of AICD. Patient has 1 son and 1 daughter with no major medical problems. Father Additional Family Medical History / Comment(s): Father at age 59 from a myocardial infarction. General Exam - General Exam Comments Initial Comments: GENERAL: Patient is well-developed and well-nourished. Patient is nontoxic and well-hydrated and is in no acute distress. ENT: Neck is soft and supple. No significant lymphadenopathy is noted. Oropharynx is clear. Moist mucous membranes. Neck has full range of motion without eliciting any pain. EYES: The sclera were anicteric and conjunctiva were pink and moist. Extraocular movements were intact and pupils were equal round and reactive to light. Eyelids were unremarkable. PULMONARY: Unlabored respirations. Good breath sounds bilaterally. No audible rales rhonchi or wheezing was noted. CARDIOVASCULAR: There is a regular rate and rhythm without any murmurs gallops or rubs. ABDOMEN: Soft and nontender with normal bowel sounds. No palpable organomegaly was noted. There is no palpable pulsatile mass. SKIN: Skin is clear with no lesions or rashes and otherwise unremarkable. NEUROLOGIC: Patient is alert and oriented x3. Cranial nerves II through XII are grossly in tact. Motor and sensory are also intact all 4 extremities. Patient has sensation to light touch of the right cheek but she states it is decreased compared to the left is cheek . Normal speech, volume and content. Symmetrical smile. MUSCULOSKELETAL: Normal extremities with adequate strength and full range of motion. No lower extremity swelling or edema. No calf tenderness. LYMPHATICS: No significant lymphadenopathy is noted PSYCHIATRIC: Normal psychiatric evaluation. Limitations: no limitations Course Vital Signs 07/14/21 07/14/21 07/14/21 08:12 08:47 09:00 Temperature 98.5 F Pulse Rate 66 62 59 L Respiratory 20 20 19 Rate Blood Pressure 159/89 127/77 125/72 O2 Sat by Pulse 97 95 Oximetry 07/14/21 07/14/21 07/14/21 09:15 09:30 09:45 Temperature Pulse Rate 59 L 59 L 60 Respiratory 18 17 17 Rate Blood Pressure 127/73 117/67 116/69 O2 Sat by Pulse 94 L 94 L 95 Oximetry 07/14/21 07/14/21 07/14/21 10:00 10:15 10:30 Temperature Pulse Rate 59 L 60 Respiratory 16 16 Rate Blood Pressure 129/79 144/81 133/81 O2 Sat by Pulse 95 96 Oximetry 07/14/21 10:45 Temperature Pulse Rate 60 Respiratory 17 Rate Blood Pressure 138/81 O2 Sat by Pulse 95 Oximetry Medical Decision Making - Medical Decision Making EKG shows a paced rhythm at 64 bpm QRS is 150 QT interval 450 QTC is 464 Chest x-ray shows no acute abnormality. CT of the brain shows no acute abnormality. I spoke with Dr. Villegas. No need for TPA because patient only has an NIH of [address] Chucky Locke agreed to admit the patient admitted the patient I consult the neurology - Lab Data Result diagrams: 07/14/21 08:28 07/14/21 08:28 Lab Results 07/14/21 07/14/21 07/14/21 Range/Units 08:26 08:28 08:28 WBC 8.3 (3.8-10.6) k/uL RBC 4.94 (3.80-5.40) m/uL Hgb 15.6 (11.4-16.0) gm/dL Hct 47.2 H (34.0-46.0) % MCV 95.6 (80.0-100.0) fL MCH 31.6 (25.0-35.0) pg MCHC 33.1 (31.0-37.0) g/dL RDW 12.6 (11.5-15.5) % Plt Count 230 (150-450) k/uL MPV 7.9 Neutrophils % 69 % Lymphocytes % 18 % Monocytes % 9 % Eosinophils % 2 % Basophils % 1 % Neutrophils # 5.7 (1.3-7.7) k/uL Lymphocytes # 1.5 (1.0-4.8) k/uL Monocytes # 0.8 (0-1.0) k/uL Eosinophils # 0.1 (0-0.7) k/uL Basophils # 0.1 (0-0.2) k/uL PT 10.0 (9.0-12.0) sec INR 0.9 (<1.2) APTT 23.4 (22.0-30.0) sec Sodium (137-145) mmol/L Potassium (3.5-5.1) mmol/L Chloride (98-107) mmol/L Carbon Dioxide (22-30) mmol/L Anion Gap mmol/L BUN (7-17) mg/dL Creatinine (0.52-1.04) mg/dL Est GFR (CKD-EPI)AfAm (>60 ml/min/1.73 sqM) Est GFR (CKD-EPI)NonAf (>60 ml/min/1.73 sqM) Glucose (74-99) mg/dL POC Glucose (mg/dL) 153 H (75-99) mg/dL POC Glu Supervisor [employer] Testing ID Melissa, Joanne Calcium (8.4-10.2) mg/dL Total Bilirubin (0.2-1.3) mg/dL AST (14-36) U/L ALT (4-34) U/L Alkaline Phosphatase (38-126) U/L Troponin I (0.000-0.034) ng/mL Total Protein (6.3-8.2) g/dL Albumin (3.5-5.0) g/dL 07/14/21 07/14/21 Range/Units 08:28 08:28 WBC (3.8-10.6) k/uL RBC (3.80-5.40) m/uL Hgb (11.4-16.0) gm/dL Hct (34.0-46.0) % MCV (80.0-100.0) fL MCH (25.0-35.0) pg MCHC (31.0-37.0) g/dL RDW (11.5-15.5) % Plt Count (150-450) k/uL MPV Neutrophils % % Lymphocytes % % Monocytes % % Eosinophils % % Basophils % % Neutrophils # (1.3-7.7) k/uL Lymphocytes # (1.0-4.8) k/uL Monocytes # (0-1.0) k/uL Eosinophils # (0-0.7) k/uL Basophils # (0-0.2) k/uL PT (9.0-12.0) sec INR (<1.2) APTT (22.0-30.0) sec Sodium 134 L (137-145) mmol/L Potassium 4.9 (3.5-5.1) mmol/L Chloride 101 (98-107) mmol/L Carbon Dioxide 28 (22-30) mmol/L Anion Gap 5 mmol/L BUN 29 H (7-17) mg/dL Creatinine 0.76 (0.52-1.04) mg/dL Est GFR (CKD-EPI)AfAm 81 (>60 ml/min/1.73 sqM) Est GFR (CKD-EPI)NonAf 70 (>60 ml/min/1.73 sqM) Glucose 169 H (74-99) mg/dL POC Glucose (mg/dL) (75-99) mg/dL POC Glu Supervisor [employer] Testing ID Calcium 9.7 (8.4-10.2) mg/dL Total Bilirubin 1.0 (0.2-1.3) mg/dL AST 65 H (14-36) U/L ALT 50 H (4-34) U/L Alkaline Phosphatase 64 (38-126) U/L Troponin I <0.012 (0.000-0.034) ng/mL Total Protein 6.8 (6.3-8.2) g/dL Albumin 3.6 (3.5-5.0) g/dL Disposition Clinical Impression: Cerebrovascular accident (CVA) Disposition: ADMITTED IP TO THIS HOSP Time of Disposition: 10:45
[2021-07-14 08:49] LABS: Albumin 3.6 g/dL (3.5-5.0); Calcium 9.7 mg/dL (8.4-10.2); Total Protein 6.8 g/dL (6.3-8.2)
[2021-07-14 08:51] LABS: Potassium 4.9 mmol/L (3.5-5.1)
[2021-07-14 08:55] LABS: INR 0.9 (<1.2); Partial Thromboplastin Time 23.4 sec (22.0-30.0)
--- NOTE | 2021-07-14 08:57 | CT ---
EXAMINATION TYPE: CT brain wo con for TPA DATE OF EXAM: 07/14/2021 COMPARISON: 01/16/2021 HISTORY: Acute stroke is suspected Automated exposure control for dose reduction was used. FINDINGS: The ventricles, basal cisterns and sulci over the convexities are moderately enlarged consistent with moderate generalized degenerative change and typical patient's age group. No abnormal density is seen throughout the brain parenchyma and there is no acute intra or extra-axia l hemorrhage. Grossly the posterior fossa is normal. The intraorbital contents appear normal and symmetric. Visualized paranasal sinuses and mastoid air c ells are well aerated. The calvarium is intact. IMPRESSION: Moderate atrophy consistent with the patient's age. There is no acute bleed or mass effect.
--- NOTE | 2021-07-14 10:43 | XR ---
EXAMINATION TYPE: XR chest 2V DATE OF EXAM: 07/14/2021 COMPARISON: 01/01/21 HISTORY: sob TECHNIQUE: Frontal and lateral views of the chest are obtained. FINDINGS: There is no focal air space opacity, pleural effusion, or pneumothorax seen. The cardiac silhouette size is within normal limits. The osseous structures are intact. Two lead pacer. IMPRESSION: No acute cardiopulmonary process.
[2021-07-14] MEDS ORDERED: ASPIRIN 325 MG TAB PO STA (10:52)
[2021-07-14] MEDS ORDERED: ALPRAZolam 0.25 MG TAB PO PRN (12:12)
[2021-07-14] MEDS ORDERED: NITROGLYCERIN SL TABS 0.4 MG TAB SUBLINGUAL PRN (12:12)
[2021-07-14] MEDS ORDERED: cloNIDine HCL 0.1 MG TAB PO PRN (12:12)
[2021-07-14] MEDS ORDERED: SPIRONOLACTONE 25 MG TAB PO PRN (12:12)
[2021-07-14] MEDS ORDERED: traMADol 50 MG TAB PO PRN (12:12)
[2021-07-14] MEDS ORDERED: FAMOTIDINE 20 MG TAB PO PRN (12:12)
--- NOTE | 2021-07-14 12:20 | P.HPIM ---
History of Present Illness H&P Date: 07/14/21 HISTORY OF PRESENT ILLNESS This is an 89-year-old female patient of Dr. Locke with past medical history of CAD post angina stress test and heart catheter with stent placement in the past. History of arrhythmia post pacemaker, history of recurrent and urgent hypertension on multi-medication. Multi-admission to the hospital with noncontrolled hypertension require multi-medication and has been seen by nephrology and cardiology. Baseline patient seen cardiology at [facility] Dr. Glaser and also recently been by Dr. Jones yesterday due to balance issues and is to be scheduled for EMG. She also follows with neurology with Dr. Melgoza at [facility]. Patient states that she developed numbness on the right side of her lip and part of her right face and woke up at 6 AM with this sensation. No problems yesterday prior to going to sleep. She is concerned th at she had similar symptoms with JORGITO inhibitor reaction as she states it started on one side of her lips and then moved to bilateral. Patient has been off JORGITO inhibitor for long time. Patient came into [facility] emergency center for evaluation found to be afebrile, heart rate 66, blood pressure 159/89, pulse ox 97% on room air. CBC was unremarkable. Sodium 134 otherwise electrolytes are within normal limits, BUN 29 creatinine 0.76. Blood sugar 153. AST 65, ALT 50, alkaline phosphatase 64. Troponin negative. Chest x-ray reveals no acute cardio pulmonary process. CAT scan of the brain showed moderate atrophy consistent with patient's age. No acute bleed or mass effect Patient seen today in the emergency center waiting for bed on the observation unit, neurology consult in place. Patient is noted to have no other deficits. REVIEW OF SYSTEMS CONSTITUTIONAL: Well-developed no acute respiratory distress. denies fever or chills EYES: No icterus sclerae, no conjunctivitis. EARS, NOSE, MOUTH, THROAT, and FACE: No sore throat, lymphadenopathy, carotid bruits or deformity. numbness to the right side of her face. RESPIRATORY: No SOB no cough or wheezes. CARDIOVASCULAR: No chest pain, no palpitations, no PND, no Orthopnea, no angina. GASTROINTESTINAL: No Abd pain, Nausea or vomiting, no Diarrhea no constipation, No GI Bleed, no distention or masses. GENITOURINARY: Negative for Hematuria or UTI, no kidney stones. INTEGUMENT/BREAST: Negative for any muscular injury with mild osteoarthritis.. HEMATOLOGIC/LYMPHATIC: Negative for bleed or purpura. MUSCULOSKELTAL: Negative for Myalgia or arthralgia. NEURLOGICAL: No LOC, Sz or syncope, no blurred vision, no dizziness or abnormality, no weakness BEHAVIORAL/PSYCH: Negative. ENDOCRINE: Negative. PHYSICAL EXAMINATION General Appearance: Alert, cooperative, no distress, appears stated age of 89 years of age, resting on the ER stretcher and appears to be comfortable . Neck HEENT: Supple, no lymphadenopathy, no thyroid enlargement, no carotid bruits. numbness to the right side of her face and lip with no deficit. Lungs: Clear to auscultation without crackles or wheezes no rhonchi, no deformity. Chest Wall: Chest wall normal expansion with deep inspiration no tenderness and no deformity was found on exam, no costochondral pain or discomfort. Heart: Regular rate and rhythm, S1, S2 normal, no murmur, rub or gallop. Back: Symmetric, no curvature, ROM normal, no CVA tenderness. Abdomen: Soft, non-tender, bowel sounds active all four quadrants, no masses, no organomegaly. Extremities: Extremities normal, atraumatic, no cyanosis or edema. Pulses: 2+ and symmetric. Skin: Skin color, texture, tugor normal, no rashes or lesions. Neurologic: Alert oriented x3 cranial nerves II through XII intact, no motor deficit, no abnormal balance or gait. ASSESSMENT AND PLAN 1. 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 Consult with neurology. 2. History of coronary artery disease. Continue aspirin 81 mg daily, Lipitor 20 mg at bedtime, Lopressor 100 mg 3 times daily, Imdur 60 mg daily and 90 mg at bedtime. 3. Hypertension, hypertensive cardiovascular disease. Continue Catapres 0.2 mg 3 times daily and 0.1 mg 3 times daily as needed, Lasix 20 mg daily, hydralazine 100 mg 3 times daily, Lopressor 100 mg 3 times daily, Aldactone 25 mg daily as needed, Imdur 60 mg daily and 90 mg at bedtime. 4. diabetes mellitus type 2. Continue glipizide 2.5 mg with breakfast and NovoLog scale before meals and at bedtime. 5. Paroxysmal atrial fibrillation. Continue eliquis 5 mg twice daily and Lopressor. 6. Hypothyroidism. Continue levothyroxine 75 g daily. 7. Chronic diastolic heart failure. Continue Lopressor, Lasix, Aldactone 25 mg daily as needed. 8. Chronic diabetic neuropathy. Continue gabapentin 100 mg twice daily. 9. Gastroesophageal reflux disease and GI prophylaxis. Continue Pepcid 20 mg daily as needed. 10. DVT prophylaxis. Eliquis. 11. COVID-19 testing, was negative CODE STATUS: DO NOT RESUSCITATE. Patient will be admitted to the hospital for a minimum of 2 night stay. DISCHARGE PLAN Return home Impression and plan of care have been directed as dictated by the signing physician. Tereza Arnett nurse practitioner acting as scribe for signing physician. Past Medical History Past Medical History: Atrial Fibrillation, Coronary Artery Disease (CAD), Cancer, Chest Pain / Angina, Diabetes Mellitus, GERD/Reflux, Hyperlipidemia, Hypertension, Osteoarthritis (OA), Sleep Apnea/CPAP/BIPAP, Thyroid Disorder Additional Past Medical History / Comment(s): skin cancer, restless leg syndrome, varicose veins, IBS, History of Any Multi-Drug Resistant Organisms: None Reported Past Surgical History: Adenoidectomy, Appendectomy, Breast Surgery, Cholecystectomy, Heart Catheterization With Stent, Hysterectomy, Orthopedic Surgery, Pacemaker, Tonsillectomy Additional Past Surgical History / Comment(s): walt cataract, 3 stents, partial thyroidectomy, rt shoulder rotator cuff, walt breast biopsy, metal clip in rt breast Past Anesthesia/Blood Transfusion Reactions: No Reported Reaction Date of Last Stent Placement:: 1998 Type of Cardiac Device: Permanent Pacemaker, Unknown Device Placement Date:: 2014 Past Psychological History: Anxiety Smoking Status: Never smoker Past Alcohol Use History: None Reported Past Drug Use History: None Reported - Past Family History Mother Additional Family Medical History / Comment(s): Mother at age 76 from massive stroke. Brother(s) Additional Family Medical History / Comment(s): The patient had a total of 3 brothers. One brother from melanoma. One brother is with history of coronary artery disease status post CABG. One brother has from colon cancer with history of coronary artery disease. Patient does not have any sisters. Daughter(s) Family Medical History: No Reported History (Healthy 1 daughter) Son(s) History Unknown: Yes (Healthy 3 sons) Additional Family Medical History / Comment(s): Patient has 3 sons and 1 daughter. One son has history of coronary artery disease, second son has history of AICD. Patient has 1 son and 1 daughter with no major medical problems. Father Additional Family Medical History / Comment(s): Father at age 59 from a myocardial infarction. Medications and Allergies Home Medications Medication Instructions Recorded Confirmed Type Apixaban [Eliquis] 5 mg PO Q12H 04/19/17 07/14/21 History Ascorbic Acid [Vitamin C] 1,000 mg PO DAILY 04/19/17 07/14/21 History glipiZIDE XL [Glucotrol XL] 2.5 mg PO AC-BRKFST 04/19/17 07/14/21 History Levothyroxine Sodium [Synthroid] 75 mcg PO DAILY 05/26/17 07/14/21 History Estradiol 0.05MG/24Hr Biwkptch 1 patch TRANSDERM SUWE 01/13/19 07/14/21 History [Vivelle-Dot 0.05 MG] Isosorbide Mononitrate ER [Imdur] 60 mg PO DAILY tab.er.24h 01/13/19 07/14/21 Rx Atorvastatin [Lipitor] 20 mg PO HS 05/09/19 07/14/21 History Isosorbide Mononitrate ER [Imdur] 90 mg PO HS 05/09/19 07/14/21 History Spironolactone [Aldactone] 25 mg PO DAILY PRN 05/09/19 07/14/21 History ALPRAZolam [Xanax] 0.25 mg PO BID PRN 09/17/19 07/14/21 History hydrALAZINE HCL [Apresoline] 100 mg PO TID 09/17/19 07/14/21 History Metoprolol Tartrate [Lopressor] 100 mg PO TID 02/27/20 07/14/21 History cloNIDine HCL [Catapres] 0.1 mg PO TID PRN 06/16/20 07/14/21 History Furosemide [Lasix] 20 mg PO DAILY 07/05/20 07/14/21 History Aspirin 81 mg PO BID #0 chew 07/07/20 07/14/21 Rx Nitroglycerin Sl Tabs [Nitrostat] 0.4 mg SL Q5M PRN 08/02/20 07/14/21 History traMADol HCl [Ultram] 50 mg PO Q6HR PRN 3 Days #12 tab 08/04/20 07/14/21 Rx Cholecalciferol (Vitamin D3) 75 mcg PO DAILY 01/01/21 07/14/21 History [Vitamin D3 (3000 Iu)] Famotidine [Pepcid] 20 mg PO DAILY PRN 01/01/21 07/14/21 History cloNIDine HCL [Catapres] 0.2 mg PO TID 01/01/21 07/14/21 History Cyanocobalamin (Vitamin B-12) 500 mcg PO DAILY 07/14/21 07/14/21 History [Vitamin B-12] Vitamin E 400 unit PO DAILY 07/14/21 07/14/21 History Allergies Allergy/AdvReac Type Severity Reaction Status Date / Time JORGITO Inhibitors Allergy Severe Swelling Verified 07/14/21 11:14 cortisone Allergy Severe Rash/Hives, Verified 07/14/21 11:14 high BP Calcium Channel Blocking AdvReac SORES IN Verified 07/14/21 11:14 Agent Dilt MOUTH sitagliptin [From Frediyifan] AdvReac Rapid Verified 07/14/21 11:16 Heart Rate dust,trees Allergy Itching Uncoded 07/14/21 08:16 Physical Exam Vitals: Vital Signs Temp Pulse Resp BP Pulse Ox 07/14/21 10:45 60 17 138/81 95 07/14/21 10:30 60 16 133/81 96 07/14/21 10:15 59 L 16 144/81 95 07/14/21 10:00 129/79 07/14/21 09:45 60 17 116/69 95 07/14/21 09:30 59 L 17 117/67 94 L 07/14/21 09:15 59 L 18 127/73 94 L 07/14/21 09:00 59 L 19 125/72 95 07/14/21 08:47 62 20 127/77 07/14/21 08:12 98.5 F 66 20 159/89 97 Intake and Output 07/13/21 07/14/21 07/14/21 22:59 06:59 14:59 Other: Weight 84.368 kg Results CBC & Chem 7: 07/14/21 08:28 07/14/21 08:28 Labs: Abnormal Lab Results - Last 24 Hours (Table) 07/14/21 07/14/21 07/14/21 Range/Units 08:26 08:28 08:28 Hct 47.2 H (34.0-46.0) % Sodium 134 L (137-145) mmol/L BUN 29 H (7-17) mg/dL Glucose 169 H (74-99) mg/dL POC Glucose (mg/dL) 153 H (75-99) mg/dL AST 65 H (14-36) U/L ALT 50 H (4-34) U/L
--- NOTE | 2021-07-14 13:07 | P.CNNES ---
History of Present Illness Consult date: 07/14/21 Requesting physician: Otoniel Figueroa Reason for Consult: tia History of Present Illness: This is an 89-year-old woman with medical history of cervical spondylosis moderate to severe over C5 to C6, recurrent falls, restless leg syndrome, mild obstructive sleep apnea not on CPAP or BiPAP, atrial fibrillation on Eliquis, post pacemaker, coronary artery disease, uncontrolled hypertension, diabetes mellitus, hyperlipidemia, hypothyroidism resented emergency department on 07/14/2021 feeling numbness over the right lower lip and right cheek area. She stated she work-up at 4am with headache throughout head and noticed her blood pressure was elevated. She stated she wake-up and her blood pressure is at time not controlled. She felt her blood pressure systolic was close to 200 and diastolic was more than 100. Since 6am she noticed numbness and tingling of right side face and headache over the right frontal region. She felt headache is 3/10, constant, aching. She denies photophobia, phonophobia, nausea or vomi ting. She denies any visual disturbance, ringing of ears, denies any falls today or yesterday. She denies any rash. She denies of any focal weakness or any numbness or tingling anywhere else. She denies of fever. Denies difficulty getting words out. Also of note patient stated that she woke up noticing the her lips were swollen. Last normal was 11 PM yesterday. Patient is following-up with her neurologist over [facility] (Dr. Dave Melgoza). She had MRI Brain about 3 months ago and was told negative. She denies that her neurologist felt she had stroke or TIA. She is on multiple home medication consisted of aspirin 81 mg 1 tablet twice a day, Lipitor 20 mg daily at bedtime, clonidine, glipizide, hydralazine, Imdur, Synthroid, metoprolol, Trileptal, vitamin B12, Eliquis, Xanax 0.25 mg tablet bid when necessary, vitamin D3, vitamin E. Patient was seen by our neuro hospitalist in our facility and was seen last by myself for her recurrent falls pm 07/2020. I felt her recurrent falls were unlikely seizures and possibly sleep disorder problem. I recommended an epilepsy monitoring unit or chief gauger EEG to capture these episodes. I also recommended a sleep study. An EEG on 08/03/2021 is normal. Some of the workup in the hospital consisted of: Initial vital signs his blood pressure of 159/89, heart rate of 66, respiratory of 20, temperature of 98.5 Fahrenheit oral and pulse ox of 97% at room air. White blood cell is 8.3 thousand. Sodium is 134, creatinine is 0.76, at initial serum glucose is 169, calcium is 9.7, AST of 65 and ALT of 50. EKG of the head is reported as moderate atrophy consistent with the patient's age. There is no acute bleed or mass effect. Review of Systems Review of system: The 12 point system was reviewed and apparent positive and negative per HPI. Past Medical History Past Medical History: Atrial Fibrillation, Coronary Artery Disease (CAD), Cancer, Chest Pain / Angina, Diabetes Mellitus, GERD/Reflux, Hyperlipidemia, Hypertension, Osteoarthritis (OA), Sleep Apnea/CPAP/BIPAP, Thyroid Disorder Additional Past Medical History / Comment(s): skin cancer, restless leg syndrome, varicose veins, IBS, History of Any Multi-Drug Resistant Organisms: None Reported Past Surgical History: Adenoidectomy, Appendectomy, Breast Surgery, Cholecystectomy, Heart Catheterization With Stent, Hysterectomy, Orthopedic Surgery, Pacemaker, Tonsillectomy Additional Past Surgical History / Comment(s): walt cataract, 3 stents, partial thyroidectomy, rt shoulder rotator cuff, walt breast biopsy, metal clip in rt breast Past Anesthesia/Blood Transfusion Reactions: No Reported Reaction Date of Last Stent Placement:: 1998 Type of Cardiac Device: Permanent Pacemaker, Unknown Device Placement Date:: 2014 Past Psychological History: Anxiety Smoking Status: Never smoker Past Alcohol Use History: None Reported Past Drug Use History: None Reported - Past Family History Mother Additional Family Medical History / Comment(s): Mother at age 76 from massive stroke. Brother(s) Additional Family Medical History / Comment(s): The patient had a total of 3 brothers. One brother from melanoma. One brother is with history of coronary artery disease status post CABG. One brother has from colon cancer with history of coronary artery disease. Patient does not have any sisters. Daughter(s) Family Medical History: No Reported History (Healthy 1 daughter) Son(s) History Unknown: Yes (Healthy 3 sons) Additional Family Medical History / Comment(s): Patient has 3 sons and 1 jesus ghter. One son has history of coronary artery disease, second son has history of AICD. Patient has 1 son and 1 daughter with no major medical problems. Father Additional Family Medical History / Comment(s): Father at age 59 from a myocardial infarction. Medications and Allergies Home Medications Medication Instructions Recorded Confirmed Type Apixaban [Eliquis] 5 mg PO Q12H 04/19/17 07/14/21 History Ascorbic Acid [Vitamin C] 1,000 mg PO DAILY 04/19/17 07/14/21 History glipiZIDE XL [Glucotrol XL] 2.5 mg PO AC-BRKFST 04/19/17 07/14/21 History Levothyroxine Sodium [Synthroid] 75 mcg PO DAILY 05/26/17 07/14/21 History Estradiol 0.05MG/24Hr Biwkptch 1 patch TRANSDERM SUWE 01/13/19 07/14/21 History [Vivelle-Dot 0.05 MG] Isosorbide Mononitrate ER [Imdur] 60 mg PO DAILY tab.er.24h 01/13/19 07/14/21 Rx Atorvastatin [Lipitor] 20 mg PO HS 05/09/19 07/14/21 History Isosorbide Mononitrate ER [Imdur] 90 mg PO HS 05/09/19 07/14/21 History Spironolactone [Aldactone] 25 mg PO DAILY PRN 05/09/19 07/14/21 History ALPRAZolam [Xanax] 0.25 mg PO BID PRN 09/17/19 07/14/21 History hydrALAZINE HCL [Apresoline] 100 mg PO TID 09/17/19 07/14/21 History Metoprolol Tartrate [Lopressor] 100 mg PO TID 02/27/20 07/14/21 History cloNIDine HCL [Catapres] 0.1 mg PO TID PRN 06/16/20 07/14/21 History Furosemide [Lasix] 20 mg PO DAILY 07/05/20 07/14/21 History Aspirin 81 mg PO BID #0 chew 07/07/20 07/14/21 Rx Nitroglycerin Sl Tabs [Nitrostat] 0.4 mg SL Q5M PRN 08/02/20 07/14/21 History traMADol HCl [Ultram] 50 mg PO Q6HR PRN 3 Days #12 tab 08/04/20 07/14/21 Rx Cholecalciferol (Vitamin D3) 75 mcg PO DAILY 01/01/21 07/14/21 History [Vitamin D3 (3000 Iu)] Famotidine [Pepcid] 20 mg PO DAILY PRN 01/01/21 07/14/21 History cloNIDine HCL [Catapres] 0.2 mg PO TID 01/01/21 07/14/21 History Cyanocobalamin (Vitamin B-12) 500 mcg PO DAILY 07/14/21 07/14/21 History [Vitamin B-12] Vitamin E 400 unit PO DAILY 07/14/21 07/14/21 History Allergies Allergy/AdvReac Type Severity Reaction Status Date / Time JORGITO Inhibitors Allergy Severe Swelling Verified 07/14/21 16:27 cortisone Allergy Severe Rash/Hives, Verified 07/14/21 16:27 high BP Calcium Channel Blocking AdvReac SORES IN Verified 07/14/21 16:27 Agent Dilt MOUTH sitagliptin [From Frediuvia] AdvReac Rapid Verified 07/14/21 16:27 Heart Rate dust,trees Allergy Itching Uncoded 07/14/21 16:27 Physical Examination - Vital Signs Vital Signs: Vital Signs Temp Pulse Resp BP Pulse Ox 07/14/21 10:45 60 17 138/81 95 07/14/21 10:30 60 16 133/81 96 07/14/21 10:15 59 L 16 144/81 95 07/14/21 10:00 129/79 07/14/21 09:45 60 17 116/69 95 07/14/21 09:30 59 L 17 117/67 94 L 07/14/21 09:15 59 L 18 127/73 94 L 07/14/21 09:00 59 L 19 125/72 95 07/14/21 08:47 62 20 127/77 07/14/21 08:12 98.5 F 66 20 159/89 97 Intake and Output 07/13/21 07/14/21 07/14/21 22:59 06:59 14:59 Other: Weight 84.368 kg GENERAL: The patient is lying in bed and is not in acute distress. CHEST: The heart rate is regular rate rhythm. No murmurs to auscultation. No carotid bruit bilaterally. LUNG: Clear to auscultation bilaterally no wheezing noted throughout. Not labored breathing. ABDOMEN/GI: Bowel sounds present in all 4 quadrants. No tenderness to palpation throughout. NEUROLOGICAL: Higher mental function: The patient is awake, alert, oriented to self, place and time. Patient is following commands. No aphasia and no neglect. Cranial nerves: The pupils are round, equal and reactive to light and accommodation. Visual mendez are full to confrontation throughout. Extraocular movement is intact no nystagmus is noted. Facial sensation is normal to touch throughout. The facial strength is decreased to hand rub over the right V1 and V2 distrubtion to touch. Hearing is mildly decreased bilaterally to hand rub. Tongue is midline and moved [id number] without any difficulty. No dysarthria is noted. Shoulder shrug is normal bilaterally. Motor: Gait is normal with walker. The strength is 5 over 5 throughout. Normal tone and bulk. Cerebellum: Normal finger to nose bilaterally. Sensation: Sensation is normal to touch throughout. Reflexes (right/left): 2+ throughout except ankles are 1+. Plantars are downgoing bilaterally. Results - Laboratory Findings CBC and BMP: 07/14/21 08:28 12 08:28 Abnormal Lab Findings: Abnormal Labs 07/14/21 07/14/21 07/14/21 08:26 08:28 08:28 Hct 47.2 H Sodium 134 L BUN 29 H Glucose 169 H POC Glucose (mg/dL) 153 H AST 65 H ALT 50 H Assessment and Plan Assessment: * Paresthesia over the right V1 and V2 distribution with mild focal headache over the right frontal region. Rule out Stroke or TIA vs due to complicated migraine vs other underlying intracranial process (patient stated wakes-up and her blood pressure is eleveated) * Hypertension and waking up at night and her blood pressure is elevated. * History of atrial fibrillation on Eliquis * Has a pacemaker * Cervical spondylosis moderate to severe over C5 to C6 * Recurrent falls * History of restless leg syndrome * Mild obstructive sleep apnea * Coronary artery disease * Diabetes mellitus * Hypothyroidism * Hyperlipidemia Plan: In the ED the patient was given 325 of aspirin once then was started on aspirin 325 daily. Recommend to decrease aspirin to 81mg (home dose). She is already on Eliquis home dose for atrial fibrillation (She has history of falls and if continues to have falls patient was notified there is increase risk of bleed since on anticoagulation and the risk might outweigh benefit). Continue Lipitor 20 mg daily at bedtime Ordered CTA head and neck, 2-D echo. Recommend MRI Brain as outpatient if her symptoms continues (needs MRI that handles Pacemaker and had one done about 3 months ago at [facility] according to patient). Ordered vitamin B12, folate, hemoglobin A1c. PT, OT and NITROGLYCERIN SUPERVISOR are consulted Every 4 hours neuro checks We'll defer the rest of the medical management to the primary team. Upon discharge, patient needs to follow-up with her neurologist (Dr. Dave Melgoza) over at [facility]. She was encouraged to get sleep study as outpatient (please refer to my previous note) The plan and all of patient questions are answered. Thank you for the consultation. Olivier Castaneda M.D. Neuro-hospitalist Time with Patient: Greater than 30
[2021-07-14] MEDS: INSULIN ASPART (NovoLOG) 100 UNIT/ML VIAL SQ SCH ×3 (13:20→20:18)
[2021-07-14] MEDS: APIXABAN 5 MG TAB PO SCH ×2 (13:21→20:18)
[2021-07-14 13:29] LABS: Glucose,Whole Blood 184 mg/dL (75-99)
[2021-07-14 18:01] LABS: Glucose,Whole Blood 143 mg/dL (75-99)
[2021-07-14] MEDS: METOPROLOL TARTRATE 50 MG TAB PO SCH ×2 (18:11→20:12)
[2021-07-14] MEDS: hydrALAZINE HCL 50 MG TAB PO SCH ×2 (18:12→21:31)
[2021-07-14] MEDS: cloNIDine HCL 0.2 MG TAB PO SCH ×2 (18:12→21:32)
[2021-07-14 18:35] LABS: Folate, Serum >20.00 ng/mL (4.40-31.00)
[2021-07-14 20:12] LABS: Glucose,Whole Blood 166 mg/dL (75-99)
[2021-07-14] MEDS: ASPIRIN 81 MG PO SCH (20:12)
[2021-07-14] MEDS ORDERED: ISOSORBIDE MONONITRATE ER 30 MG TAB.ER.24H PO SCH (21:00)
[2021-07-14] MEDS ORDERED: ATORVASTATIN 20 MG TAB PO SCH (21:00)
--- NOTE | 2021-07-14 23:14 | CT ---
EXAMINATION TYPE: CT angio head neck DATE OF EXAM: 07/14/2021 COMPARISON: CT angiogram of the neck 08/03/2020 HISTORY: 601.3 CT DLP: Right sided facial numbness. mGycm Automated exposure control for dose reduction was used. CONTRAST: Performed with IV Contrast, patient injected with 65ml mL of Isovue 370. Images obtained from the aortic arch to the vertex of the brain with IV contrast. There are 3-D post processed images. There is normal branching pattern of the great vessels on the aortic arch. There is no mediastinal ad enopathy. There is arterial flow in the common internal and external carotid arteries bilaterally. Th ere is bilateral plaque formation at the carotid artery bifurcations. There is estimated 40% stenosis of the distal left common carotid artery. There is estimated 20% stenosis of the proximal right inte rnal carotid artery. There is approximate 20% stenosis distal right common carotid artery. There is a rterial flow in both vertebral arteries. There is arterial flow in the vertebrobasilar artery system. There is no evidence of carotid or vertebral artery aneurysm or dissection. There is arterial flow in the anterior middle and posterior cerebral arteries. There is no evidence o f hemodynamic stenosis. There is no mass effect. There is normal enhancement of the venous sinuses. T here is no evidence of intracranial aneurysm or neovascularity. IMPRESSION: No significant intracranial angiographic abnormality. Mild plaque formation at the carotid artery bifurcations as above. No evidence of any significant hem odynamic stenosis. Stenosis at the carotid artery bifurcations not significantly different than old e xam.
[2021-07-15] MEDS ORDERED: LEVOTHYROXINE 75 MCG TAB PO SCH (06:30)
[2021-07-15 07:26] LABS: Glucose,Whole Blood 191 mg/dL (75-99)
[2021-07-15 07:53] VITALS: PULSE 68; RESP 15
[2021-07-15] MEDS: APIXABAN 5 MG TAB PO SCH (08:40)
[2021-07-15] MEDS: ASPIRIN 81 MG PO SCH (08:40)
[2021-07-15] MEDS: hydrALAZINE HCL 50 MG TAB PO SCH ×2 (08:41→15:37)
[2021-07-15] MEDS: METOPROLOL TARTRATE 50 MG TAB PO SCH ×2 (08:41→15:37)
[2021-07-15] MEDS: INSULIN ASPART (NovoLOG) 100 UNIT/ML VIAL SQ SCH ×2 (08:41→13:29)
[2021-07-15] MEDS: cloNIDine HCL 0.2 MG TAB PO SCH ×2 (08:42→15:37)
--- NOTE | 2021-07-15 08:57 | P.DS ---
Providers Date of admission: 07/14/21 10:48 Expected date of discharge: 07/15/21 Attending physician: Jasmine Mccord Consults: 07/14/21 10:46 Consult Physician Routine Consulting Provider: Olivier Castaneda Consult Reason/Comments: TIA Do you want consulting provider notified?: Yes Primary care physician: Karlo Chucky [facility] Course: HISTORY OF PRESENT ILLNESS This is an 89-year-old female patient of Dr. Locke with past medical history of CAD post angina stress test and heart catheter with stent placement in the past. History of arrhythmia post pacemaker, history of recurrent and urgent hypertension on multi-medication. Multi-admission to the hospital with noncontrolled hypertension require multi-medication and has been seen by nephrology and cardiology. Baseline patient seen cardiology at [facility] Dr. Glaser and also recently been by Dr. Jones yesterday due to balance issues and is to be scheduled for EMG. She also follows with neurology with Dr. Melgoza at [facility]. Patient states that she developed numbness on the right side of her lip and part of her right face and woke up at 6 AM with this sensation. No problems yesterday prior to going to sleep. She is concerned that she had similar symptoms with JORGITO inhibitor reaction as she states it started on one side of her lips and then moved to bilateral. Patient has been off JORGITO inhibitor for long time. Patient came into [facility] emergency center for evaluation found to be afebrile, heart rate 66, blood pressure 159/89, pulse ox 97% on room air. CBC was unremarkable. Sodium 134 otherwise electrolytes are within normal limits, BUN 29 creatinine 0.76. Blood sugar 153. AST 65, ALT 50, alkaline phosphatase 64. Troponin negative. Chest x-ray reveals no acute cardio pulmonary process. CAT scan of the brain showed moderate atrophy consistent with patient's age. No acute bleed or mass effect Patient seen today in the emergency center waiting for bed on the observation unit, neurology consult in place. Patient is noted to have no other deficits. 07/15: Patient states his symptoms of numbness to her right side of her face/lip completely gone. She denies any weakness on either side of her body. She denies any new symptoms. has been seen by neurology with recommendations for aspirin 81 mg daily and continue eliquis for atrial fibrillation. Plan for follow-up with her neurologist Dr. Melgoza. Patient was encouraged to obtain sleep study as an outpatient. Patient will be discharged home today in stable condition. DISCHARGE DIAGNOSES 1. 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 2. History of coronary artery disease. 3. Hypertension, hypertensive cardiovascular disease. 4. diabetes mellitus type 2. 5. Paroxysmal atrial fibrillation. 6. Hypothyroidism. 7. Chronic diastolic heart failure. 8. Chronic diabetic neuropathy. 9. Gastroesophageal reflux disease. 10. COVID-19 testing, was negative DISCHARGE PLAN Return home Impression and plan of care have been directed as dictated by the signing physician. Tereza Arnett nurse practitioner acting as scribe for signing physician. Patient Condition at Discharge: Good Plan - Discharge Summary New Discharge Prescriptions: Continue Ascorbic Acid [Vitamin C] 1,000 mg PO DAILY glipiZIDE XL [Glucotrol XL] 2.5 mg PO AC-BRKFST Apixaban [Eliquis] 5 mg PO Q12H Levothyroxine Sodium [Synthroid] 75 mcg PO DAILY Estradiol 0.05MG/24Hr Biwkptch [Vivelle-Dot 0.05 MG] 1 patch TRANSDERM SUWE Isosorbide Mononitrate ER [Imdur] 60 mg PO DAILY tab.er.24h Spironolactone [Aldactone] 25 mg PO DAILY PRN PRN Reason: Edema Atorvastatin [Lipitor] 20 mg PO HS Isosorbide Mononitrate ER [Imdur] 90 mg PO HS hydrALAZINE HCL [Apresoline] 100 mg PO TID ALPRAZolam [Xanax] 0.25 mg PO BID PRN PRN Reason: Anxiety/SLEEP Metoprolol Tartrate [Lopressor] 100 mg PO TID cloNIDine HCL [Catapres] 0.1 mg PO TID PRN PRN Reason: BP OVER 150 Furosemide [Lasix] 20 mg PO DAILY Aspirin 81 mg PO BID #0 chew Nitroglycerin Sl Tabs [Nitrostat] 0.4 mg SL Q5M PRN PRN Reason: Chest Pain traMADol HCl [Ultram] 50 mg PO Q6HR PRN 3 Days #12 tab PRN Reason: Mild Pain Cholecalciferol (Vitamin D3) [Vitamin D3 (3000 Iu)] 75 mcg PO DAILY Cyanocobalamin (Vitamin B-12) [Vitamin B-12] 500 mcg PO DAILY Famotidine [Pepcid] 20 mg PO DAILY PRN PRN Reason: GERDS cloNIDine HCL [Catapres] 0.2 mg PO TID Vitamin E 400 unit PO DAILY Discharge Medication List Apixaban [Eliquis] 5 mg PO Q12H 04/19/17 [History] Ascorbic Acid [Vitamin C] 1,000 mg PO DAILY 04/19/17 [History] glipiZIDE XL [Glucotrol XL] 2.5 mg PO AC-BRKFST 04/19/17 [History] Levothyroxine Sodium [Synthroid] 75 mcg PO DAILY 05/26/17 [History] Estradiol 0.05MG/24Hr Biwkptch [Vivelle-Dot 0.05 MG] 1 patch TRANSDERM SUWE 01/13/19 [History] Isosorbide Mononitrate ER [Imdur] 60 mg PO DAILY tab.er.24h 01/13/19 [Rx] Atorvastatin [Lipitor] 20 mg PO HS 05/09/19 [History] Isosorbide Mononitrate ER [Imdur] 90 mg PO HS 05/09/19 [History] Spironolactone [Aldactone] 25 mg PO DAILY PRN 05/09/19 [History] ALPRAZolam [Xanax] 0.25 mg PO BID PRN 09/17/19 [History] hydrALAZINE HCL [Apresoline] 100 mg PO TID 09/17/19 [History] Metoprolol Tartrate [Lopressor] 100 mg PO TID 02/27/20 [History] cloNIDine HCL [Catapres] 0.1 mg PO TID PRN 06/16/20 [History] Furosemide [Lasix] 20 mg PO DAILY 07/05/20 [History] Aspirin 81 mg PO BID #0 chew 07/07/20 [Rx] Nitroglycerin Sl Tabs [Nitrostat] 0.4 mg SL Q5M PRN 08/02/20 [History] traMADol HCl [Ultram] 50 mg PO Q6HR PRN 3 Days #12 tab 08/04/20 [Rx] Cholecalciferol (Vitamin D3) [Vitamin D3 (3000 Iu)] 75 mcg PO DAILY 01/01/21 [History] Famotidine [Pepcid] 20 mg PO DAILY PRN 01/01/21 [History] cloNIDine HCL [Catapres] 0.2 mg PO TID 01/01/21 [History] Cyanocobalamin (Vitamin B-12) [Vitamin B-12] 500 mcg PO DAILY 07/14/21 [History] Vitamin E 400 unit PO DAILY 07/14/21 [History] Follow up Appointment(s)/Referral(s): Karlo Locke MD [Primary Care Provider] - 1 Week Dave Melgoza MD [REFERRING] - 2 Weeks Discharge Disposition: HOME SELF-CARE
[2021-07-15] MEDS ORDERED: ASPIRIN 325 MG TAB PO SCH (09:00)
[2021-07-15] MEDS ORDERED: ISOSORBIDE MONONITRATE ER 60 MG TAB.ER.24H PO SCH (09:00)
[2021-07-15] MEDS ORDERED: FUROSEMIDE 20 MG TAB PO SCH (09:00)
[2021-07-15] MEDS ORDERED: ASCORBIC ACID 500 MG TAB PO SCH (09:00)
[2021-07-15 09:49] LABS: Chol/HDL Ratio 3.35 Ratio; LDL Cholesterol,Calculated 89.6 mg/dL (0.0-131.0)
[2021-07-15 12:28] LABS: Glucose,Whole Blood 182 mg/dL (75-99)
--- NOTE | 2021-07-15 12:47 | P.PN ---
Subjective Progress Note Date: 07/15/21 The patient is seen at bedside and she denies any further numbness or tingling on right side of face. She feels headache has improved. She denies of any new neurological problems. Objective - Vital Signs Vital signs: Vital Signs Temp 97.7 F 07/15/21 07:00 Pulse 68 07/15/21 07:00 Resp 15 07/15/21 07:00 BP 124/78 07/15/21 07:00 Pulse Ox 97 07/15/21 07:00 Intake & Output 07/14/21 07/15/21 07/15/21 18:59 06:59 18:59 Intake Total 180 320 Balance 180 320 Weight 84.368 kg Intake: Oral 180 320 Other: # Voids 0 2 - Exam GENERAL: The patient is lying in bed and is not in acute distress. NEUROLOGICAL: Higher mental function: The patient is awake, alert, oriented to self, place and time. Patient is following commands. No aphasia and no neglect. Cranial nerves: The pupils are round, equal and reactive to light and accommo dation. Visual mendez are full to confrontation throughout. Extraocular movement is intact no nystagmus is noted. Facial sensation is normal to touch throughout. The facial strength is normal. Hearing is mildly decreased bilaterally to hand rub. Tongue is midline and moved [id number] without any difficulty. No dysarthria is noted. Shoulder shrug is normal bilaterally. Motor: Gait is normal with walker. The strength is 5 over 5 throughout. Normal tone and bulk. Cerebellum: Normal finger to nose bilaterally. Sensation: Sensation is normal to touch throughout. Reflexes (right/left): 2+ throughout except ankles are 1+. Plantars are downgoing bilaterally. WORK-UP: Vitamin B12 is 1418 Serum folate is more than 20 Hemoglobin A1c is 8.5 Lipid panel is a triglyceride 145, cholesterol is 169, LDL of 89 and HDL of 50. Castillo virus PCR was not detected that. CT head is reported as moderate atrophy consistent with patient's age. There is no acute bleed or mass effect. CT angiography of the head and neck was reported as no significant intercranial and angiographic abnormality. Mild plaque formation at the carotid artery bifurcation. No evidence of any significant hemodynamic stenosis. Stenosis at the carotid artery bifurcation not significant different than old exam. - Labs CBC & Chem 7: 07/14/21 08:28 07/14/21 08:28 Labs: Abnormal Lab Results - Last 24 Hours (Table) 07/14/21 07/14/21 07/14/21 Range/Units 08:28 08:28 13:18 POC Glucose (mg/dL) 184 H (75-99) mg/dL Hemoglobin A1c 8.5 H (4.0-6.0) % Vitamin B12 1418.0 H (200.0-944.0) pg/mL 07/14/21 07/14/21 07/15/21 Range/Units 17:59 20:11 07:24 POC Glucose (mg/dL) 143 H 166 H 191 H (75-99) mg/dL Hemoglobin A1c (4.0-6.0) % Vitamin B12 (200.0-944.0) pg/mL 07/15/21 Range/Units 12:26 POC Glucose (mg/dL) 182 H (75-99) mg/dL Hemoglobin A1c (4.0-6.0) % Vitamin B12 (200.0-944.0) pg/mL Assessment and Plan Assessment: * Transient Paresthesia over the right V1 and V2 distribution with mild focal headache over the right frontal region. Unknown exact cause. Possible complicated migraine vs uncontrolled hypertension. * Hypertension and waking up at night and her blood pressure is elevated. * History of atrial fibrillation on Eliquis * Has a pacemaker * Cervical spondylosis moderate to severe over C5 to C6 * Recurrent falls * History of restless leg syndrome * Mild obstructive sleep apnea * Coronary artery disease * Diabetes mellitus * Hypothyroidism * Hyperlipidemia Plan: Continue home dose ASA 81mg daily and on Eliquis home dose for atrial fibrillation (She has history of falls and if continues to have falls patient was notified there is increase risk of bleed since on anticoagulation and the risk might outweigh benefit). Continue Lipitor 20 mg daily at bedtime Recommend MRI Brain as outpatient (needs MRI that handles Pacemaker and had one done about 3 months ago at [facility] according to patient). Patient will follow-up with her neurologist for attempting of getting repeat MRI. PT, OT and COOK HELPER DESSERT are consulted Every 4 hours neuro checks We'll defer the rest of the medical management to the primary team. Upon discharge, patient needs to follow-up with her neurologist (Dr. Dave Melgoza) over at [facility]. She was encouraged to get sleep study as outpatient (please refer to my previous note) The plan and all of patient questions are answered. The plan is also discussed with the primary team. There is no further work-up. Olivier Castaneda M.D. Neuro-hospitalist Time with Patient: Less than 30
[2021-07-15 15:24] VITALS: BP 122/77; TEMP 97.8
== END 2021-07-15 17:40 | disposition home or self-care (01) ==
LOC: EC 08:06 → 6NMEDSUR 10:48
PROVIDERS: ADMIT Family Medicine; ATTEND Family Medicine
DX: R20.2 Paresthesia of skin (principal); I11.0 Hypertensive heart disease with heart failure; I50.32 Chronic diastolic (congestive) heart failure; R20.0 Anesthesia of skin; E11.40 Type 2 diabetes mellitus with diabetic neuropathy, unspecified; M47.812 Spondylosis without myelopathy or radiculopathy, cervical region; G47.33 Obstructive sleep apnea (adult) (pediatric); I65.23 Occlusion and stenosis of bilateral carotid arteries; E78.00 Pure hypercholesterolemia, unspecified; I25.10 Atherosclerotic heart disease of native coronary artery without angina pectoris; K21.9 Gastro-esophageal reflux disease without esophagitis; E78.5 Hyperlipidemia, unspecified; I48.0 Paroxysmal atrial fibrillation; G47.30 Sleep apnea, unspecified; M19.90 Unspecified osteoarthritis, unspecified site; G25.81 Restless legs syndrome; K58.9 Irritable bowel syndrome, unspecified; I83.90 Asymptomatic varicose veins of unspecified lower extremity; E89.0 Postprocedural hypothyroidism; F41.9 Anxiety disorder, unspecified; R29.6 Repeated falls; Z20.822 Contact with and (suspected) exposure to COVID-19; Z79.01 Long term (current) use of anticoagulants; Z79.84 Long term (current) use of oral hypoglycemic drugs; Z79.890 Hormone replacement therapy; Z79.899 Other long term (current) drug therapy; Z79.818 Long term (current) use of other agents affecting estrogen receptors and estrogen levels; Z79.82 Long term (current) use of aspirin; Z88.8 Allergy status to other drugs, medicaments and biological substances; Z91.048 Other nonmedicinal substance allergy status; Z66 Do not resuscitate; Z95.0 Presence of cardiac pacemaker; Z85.828 Personal history of other malignant neoplasm of skin; Z86.73 Personal history of transient ischemic attack (TIA), and cerebral infarction without residual deficits; Z90.49 Acquired absence of other specified parts of digestive tract; Z90.710 Acquired absence of both cervix and uterus; Z95.5 Presence of coronary angioplasty implant and graft; Z98.42 Cataract extraction status, left eye; Z98.890 Other specified postprocedural states; Z98.41 Cataract extraction status, right eye; Z82.3 Family history of stroke; Z80.8 Family history of malignant neoplasm of other organs or systems; Z82.49 Family history of ischemic heart disease and other diseases of the circulatory system; Z80.0 Family history of malignant neoplasm of digestive organs
CPT/HCPCS: 96361 ×2; 96360; 99285; 36415; 93005; 80061; 80053; 82607; 82746; 84484; 85025; 85610; 85730; 83036; 87635; 71046; 70496; 70450; 70498; G0378 ×2; Q9967

== ENCOUNTER 2021-07-25 02:46 | Emergency (ER) | payer MEDICARE ==
[2021-07-25 02:51] VITALS: RESP 18
[2021-07-25] MEDS ORDERED: SODIUM CHLORIDE 0.9% 1,000 ML IV STA (03:19)
--- NOTE | 2021-07-25 03:23 | ED ---
General Adult HPI - General Chief complaint: Extremity Problem,Nontraumatic Stated complaint: high BP, leg numbness Time Seen by Provider: 07/25/21 02:50 Source: patient, RN notes reviewed Mode of arrival: ambulatory Limitations: no limitations - History of Present Illness Initial comments: Patient is a pleasant 89-year-old female presenting to the emergency department with concerns for high blood pressure. Blood pressure at home was high, 220/100. Patient took her metoprolol and Catapres and nitroglycerin. Patient is comfortable with her blood pressure at this time. Patient states she did develop some paresthesias of both of her legs. Patient states she did not lose sensation. Patient states no weakness. No loss of control of bowel or bladder. Patient has chronic back pain, no change from normal. No headache or confusion or upper extremity involvement. Area of involvement is bilateral shins. - Related Data Home Medications Medication Instructions Recorded Confirmed Apixaban [Eliquis] 5 mg PO Q12H 04/19/17 07/14/21 Ascorbic Acid [Vitamin C] 1,000 mg PO DAILY 04/19/17 07/14/21 glipiZIDE XL [Glucotrol XL] 2.5 mg PO [id number] 04/19/17 07/14/21 Levothyroxine Sodium [Synthroid] 75 mcg PO DAILY 05/26/17 07/14/21 Estradiol 0.05MG/24Hr Biwkptch 1 patch TRANSDERM SUWE 01/13/19 07/14/21 [Vivelle-Dot 0.05 MG] Atorvastatin [Lipitor] 20 mg PO HS 05/09/19 07/14/21 Isosorbide Mononitrate ER [Imdur] 90 mg PO HS 05/09/19 07/14/21 Spironolactone [Aldactone] 25 mg PO DAILY PRN 05/09/19 07/14/21 ALPRAZolam [Xanax] 0.25 mg PO BID PRN 09/17/19 07/14/21 hydrALAZINE HCL [Apresoline] 100 mg PO TID 09/17/19 07/14/21 Metoprolol Tartrate [Lopressor] 100 mg PO TID 02/27/20 07/14/21 cloNIDine HCL [Catapres] 0.1 mg PO TID PRN 06/16/20 07/14/21 Furosemide [Lasix] 20 mg PO DAILY 07/05/20 07/14/21 Nitroglycerin Sl Tabs [Nitrostat] 0.4 mg SL Q5M PRN 08/02/20 07/14/21 Cholecalciferol (Vitamin D3) 75 mcg PO DAILY 01/01/21 07/14/21 [Vitamin D3 (3000 Iu)] Famotidine [Pepcid] 20 mg PO DAILY PRN 01/01/21 07/14/21 cloNIDine HCL [Catapres] 0.2 mg PO TID 01/01/21 07/14/21 Cyanocobalamin (Vitamin B-12) 500 mcg PO DAILY 07/14/21 07/14/21 [Vitamin B-12] Vitamin E 400 unit PO DAILY 07/14/21 07/14/21 Previous Rx's Medication Instructions Recorded Isosorbide Mononitrate ER [Imdur] 60 mg PO DAILY tab.er.24h 01/13/19 Aspirin 81 mg PO BID #0 chew 07/07/20 traMADol HCl [Ultram] 50 mg PO Q6HR PRN 3 Days #12 tab 08/04/20 Allergies Allergy/AdvReac Type Severity Reaction Status Date / Time JORGITO Inhibitors Allergy Severe Swelling Verified 07/25/21 02:51 cortisone Allergy Severe Rash/Hives, Verified 07/25/21 02:51 high BP Calcium Channel Blocking AdvReac SORES IN Verified 07/25/21 02:51 Agent Dilt MOUTH sitagliptin [From Januvia] AdvReac Rapid Verified 07/25/21 02:51 Heart Rate dust,trees Allergy Itching Uncoded 07/25/21 02:51 Review of Systems ROS Statement: Those systems with pertinent positive or pertinent negative responses have been documented in the HPI. ROS Other: All systems not noted in ROS Statement are negative. Constitutional: Denies: fever Eyes: Denies: eye pain ENT: Denies: ear pain Respiratory: Denies: cough Cardiovascular: Denies: chest pain Endocrine: Denies: fatigue Gastrointestinal: Denies: abdominal pain Genitourinary: Denies: dysuria Musculoskeletal: Reports: as per HPI Skin: Denies: rash Neurological: Reports: paresthesias. Denies: headache, weakness, confusion Past Medical History Past Medical History: Atrial Fibrillation, Coronary Artery Disease (CAD), Cancer, Chest Pain / Angina, Diabetes Mellitus, GERD/Reflux, Hyperlipidemia, Hypertension, Osteoarthritis (OA), Sleep Apnea/CPAP/BIPAP, Thyroid Disorder Additional Past Medical History / Comment(s): skin cancer, restless leg syndrome, varicose veins, IBS, History of Any Multi-Drug Resistant Organisms: None Reported Past Surgical History: Adenoidectomy, Appendectomy, Breast Surgery, Cholecystectomy, Heart Catheterization With Stent, Hysterectomy, Orthopedic Surgery, Pacemaker, Tonsillectomy Additional Past Surgical History / Comment(s): walt cataract, 3 stents, partial thyroidectomy, rt shoulder rotator cuff, walt breast biopsy, metal clip in rt breast Past Anesthesia/Blood Transfusion Reactions: No Reported Reaction Additional Past Anesthesia/Blood Transfusion Reaction / Comment(s): patient has never had a blood transfusion Date of Last Stent Placement:: 1998 Type of Cardiac Device: Permanent Pacemaker, Unknown Device Placement Date:: 2014 Past Psychological History: Anxiety Smoking Status: Never smoker Past Alcohol Use History: None Reported Past Drug Use History: None Reported - Past Family History Mother Additional Family Medical History / Comment(s): Mother at age 76 from massive stroke. Brother(s) Additional Family Medical History / Comment(s): The patient had a total of 3 brothers. One brother from melanoma. One brother is with history of coronary artery disease status post CABG. One brother has from colon cancer with history of coronary artery disease. Patient does not have any sisters. Daughter(s) Family Medical History: No Reported History (Healthy 1 daughter) Son(s) History Unknown: Yes (Healthy 3 sons) Additional Family Medical History / Comment(s): Patient has 3 sons and 1 daughter. One son has history of coronary artery disease, second son has history of AICD. Patient has 1 son and 1 daughter with no major medical proble ms. Father Additional Family Medical History / Comment(s): Father at age 59 from a myocardial infarction. General Exam Limitations: no limitations General appearance: alert, in no apparent distress Head exam: Present: normocephalic Eye exam: Present: normal appearance, PERRL ENT exam: Present: normal oropharynx Neck exam: Present: normal inspection Respiratory exam: Present: normal lung sounds bilaterally Cardiovascular Exam: Present: regular rate, normal rhythm GI/Abdominal exam: Present: soft. Absent: distended, tenderness, pulsatile mass Extremities exam: Present: normal inspection, full ROM. Absent: tenderness Back exam: Absent: vertebral tenderness Neurological exam: Present: alert, oriented X3, CN II-XII intact. 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 Patient updated on results and need for follow-up. Patient states she has an appointment Friday with her doctor. Patient will be given fluids prior to discharge. - Lab Data Result diagrams: 07/25/21 03:40 07/25/21 03:40 Lab Results 07/25/21 07/25/21 Range/Units 03:40 03:40 WBC 8.9 (3.8-10.6) k/uL RBC 4.38 (3.80-5.40) m/uL Hgb 14.3 (11.4-16.0) gm/dL Hct 43.9 (34.0-46.0) % MCV 100.1 H (80.0-100.0) fL MCH 32.5 (25.0-35.0) pg MCHC 32.5 (31.0-37.0) g/dL RDW 12.8 (11.5-15.5) % Plt Count 195 (150-450) k/uL MPV 7.8 Neutrophils % 74 % Lymphocytes % 12 % Monocytes % 10 % Eosinophils % 1 % Basophils % 0 % Neutrophils # 6.6 (1.3-7.7) k/uL Lymphocytes # 1.1 (1.0-4.8) k/uL Monocytes # 0.9 (0-1.0) k/uL Eosinophils # 0.1 (0-0.7) k/uL Basophils # 0.0 (0-0.2) k/uL Sodium 135 L (137-145) mmol/L Potassium 4.1 (3.5-5.1) mmol/L Chloride 100 (98-107) mmol/L Carbon Dioxide 30 (22-30) mmol/L Anion Gap 5 mmol/L BUN 36 H (7-17) mg/dL Creatinine 0.70 (0.52-1.04) mg/dL Est GFR (CKD-EPI)AfAm 89 (>60 ml/min/1.73 sqM) Est GFR (CKD-EPI)NonAf 77 (>60 ml/min/1.73 sqM) Glucose 250 H (74-99) mg/dL Calcium 9.4 (8.4-10.2) mg/dL Magnesium 1.9 (1.6-2.3) mg/dL Total Bilirubin 0.5 (0.2-1.3) mg/dL AST 29 (14-36) U/L ALT 30 (4-34) U/L Alkaline Phosphatase 59 (38-126) U/L Total Protein 5.9 L (6.3-8.2) g/dL Albumin 3.1 L (3.5-5.0) g/dL Disposition Clinical Impression: Paresthesia, Dehydration Disposition: HOME SELF-CARE Condition: Stable Instructions (If sedation given, give patient instructions): Dehydration (ED), Paresthesia (ED) Additional Instructions: Please follow-up with primary care physician Friday as planned. Return for weakness, worsening or change in symptoms, or any other concerns. Is patient prescribed a controlled substance at d/c from ED?: No Referrals: Karlo Locke MD [Primary Care Provider] - 1-2 days Time of Disposition: 05:25
[2021-07-25 04:19] LABS: Basophils % (A) 0 %; Eosinophils # (A) 0.1 k/uL (0-0.7); Eosinophils % (A) 1 %; HCT 43.9 % (34.0-46.0); HGB 14.3 gm/dL (11.4-16.0); Lymphocytes # (A) 1.1 k/uL (1.0-4.8); Lymphocytes % (A) 12 %; MCH 32.5 pg (25.0-35.0); MCHC 32.5 g/dL (31.0-37.0); MCV 100.1 fL (80.0-100.0); Mean Platelet Volume 7.8; Monocytes # (A) 0.9 k/uL (0-1.0); Monocytes % (A) 10 %; Neutrophils # (A) 6.6 k/uL (1.3-7.7); Neutrophils % (A) 74 %; Platelet Count 195 k/uL (150-450); RBC 4.38 m/uL (3.80-5.40); RDW 12.8 % (11.5-15.5); WBC 8.9 k/uL (3.8-10.6)
[2021-07-25 04:54] VITALS: PULSE 60
[2021-07-25 05:02] LABS: Albumin 3.1 g/dL (3.5-5.0); Calcium 9.4 mg/dL (8.4-10.2); Magnesium 1.9 mg/dL (1.6-2.3); Potassium 4.1 mmol/L (3.5-5.1); Total Bilirubin 0.5 mg/dL (0.2-1.3); Total Protein 5.9 g/dL (6.3-8.2)
[2021-07-25] MEDS ORDERED: SODIUM CHLORIDE 0.9% 500 ML 500 ML IV STA (05:21)
[2021-07-25 06:18] VITALS: BP 153/87; TEMP 97.1
== END 2021-07-25 06:18 | disposition home or self-care (01) ==
LOC: EC 02:46
DX: R20.2 Paresthesia of skin (principal); E86.0 Dehydration; I48.91 Unspecified atrial fibrillation; I25.10 Atherosclerotic heart disease of native coronary artery without angina pectoris; E11.9 Type 2 diabetes mellitus without complications; K21.9 Gastro-esophageal reflux disease without esophagitis; E78.5 Hyperlipidemia, unspecified; I10 Essential (primary) hypertension; M19.90 Unspecified osteoarthritis, unspecified site; E07.9 Disorder of thyroid, unspecified; F41.9 Anxiety disorder, unspecified; Z79.01 Long term (current) use of anticoagulants; Z79.82 Long term (current) use of aspirin; Z85.828 Personal history of other malignant neoplasm of skin; Z90.49 Acquired absence of other specified parts of digestive tract; Z90.710 Acquired absence of both cervix and uterus; Z95.0 Presence of cardiac pacemaker
CPT/HCPCS: 36415; 80053; 83735; 85025; 96360; 96361; 99284

== ENCOUNTER 2021-12-01 05:03 | Observation (INO) | payer MEDICARE ==
--- NOTE | 2021-12-01 05:49 | XR ---
EXAMINATION TYPE: XR chest 2V DATE OF EXAM: 12/01/2021 COMPARISON: 07/14/2021 HISTORY: Altered mental status. Chest pain TECHNIQUE: FINDINGS: Heart is top normal in size. There is no heart failure. Lungs are clear of infiltrate. Ther e is left axillary pacemaker. Bony thorax appears intact. IMPRESSION: No active cardiopulmonary disease. No adverse change.
[2021-12-01 06:09] LABS: Basophils # (A) 0.1 k/uL (0-0.2); Basophils % (A) 1 %; Eosinophils # (A) 0.2 k/uL (0-0.7); Eosinophils % (A) 2 %; HCT 42.5 % (34.0-46.0); HGB 13.7 gm/dL (11.4-16.0); Lymphocytes # (A) 1.5 k/uL (1.0-4.8); Lymphocytes % (A) 21 %; MCH 31.4 pg (25.0-35.0); MCHC 32.2 g/dL (31.0-37.0); MCV 97.4 fL (80.0-100.0); Mean Platelet Volume 8.3; Monocytes # (A) 0.8 k/uL (0-1.0); Monocytes % (A) 11 %; Neutrophils # (A) 4.4 k/uL (1.3-7.7); Neutrophils % (A) 62 %; Platelet Count 200 k/uL (150-450); RBC 4.36 m/uL (3.80-5.40); RDW 12.9 % (11.5-15.5)
[2021-12-01 06:10] LABS: Albumin 3.6 g/dL (3.5-5.0); Calcium 9.3 mg/dL (8.4-10.2); Magnesium 1.7 mg/dL (1.6-2.3); Potassium 4.2 mmol/L (3.5-5.1); Total Protein 6.6 g/dL (6.3-8.2)
[2021-12-01 06:14] LABS: Partial Thromboplastin Time 24.6 sec (22.0-30.0); Prothrombin Time 10.9 sec (9.0-12.0)
--- NOTE | 2021-12-01 06:19 | ED ---
Chest Pain HPI - General Chief Complaint: Chest Pain Stated Complaint: Chest Pain Time Seen by Provider: 12/01/21 05:32 Source: patient Mode of arrival: ambulatory Limitations: no limitations - History of Present Illness Initial Comments: This patient is an 89-year-old woman presenting to have evaluation for chest pain. The patient had been in bed and was awakened by a feeling of palpitations and by pressure across the chest. She was short of breath. When the pressure feeling did not resolve she ended up taking nitroglycerin and a clonidine. She took a second nitroglycerin and then called ambulance. She states that the symptoms have resolved now though she does have a headache she believes related to the nitroglycerin. MD Complaint: chest pain -: hour(s) Onset: during rest, awoke with symptoms Pain Location: substernal Pain Radiation: none Severity: moderate Quality: heaviness Consistency: now resolved Improves With: nitroglycerin Worsens With: nothing Anginal Symptoms: dyspnea Treatments Prior to Arrival: aspirin, nitroglycerin - Related Data Home Medications Medication Instructions Recorded Confirmed Apixaban [Eliquis] 5 mg PO BID 04/19/17 12/07/21 glipiZIDE XL [Glucotrol XL] 2.5 mg PO DAILY 04/19/17 12/07/21 Levothyroxine Sodium [Synthroid] 75 mcg PO DAILY 05/26/17 12/07/21 Estradiol 0.05MG/24Hr Biwkptch 1 patch TRANSDERM SUWE 01/13/19 12/07/21 [Vivelle-Dot 0.05 MG] Atorvastatin [Lipitor] 20 mg PO HS 05/09/19 12/07/21 Isosorbide Mononitrate ER [Imdur] 90 mg PO HS 05/09/19 12/07/21 Spironolactone [Aldactone] 25 mg PO Q48H 05/09/19 12/07/21 ALPRAZolam [Xanax] 0.25 mg PO HS 09/17/19 12/07/21 hydrALAZINE HCL [Apresoline] 100 mg PO TID 09/17/19 12/07/21 Metoprolol Tartrate [Lopressor] 100 mg PO TID 02/27/20 12/07/21 cloNIDine HCL [Catapres] 0.1 mg PO TID PRN 06/16/20 12/07/21 Furosemide [Lasix] 20 mg PO Q48H 07/05/20 12/07/21 Nitroglycerin Sl Tabs [Nitrostat] 0.4 mg SL Q5M PRN 08/02/20 12/07/21 Cholecalciferol (Vitamin D3) 75 mcg PO DAILY@1200 01/01/21 12/07/21 [Vitamin D3 (3000 Iu)] cloNIDine HCL [Catapres] 0.2 mg PO TID 01/01/21 12/07/21 Cyanocobalamin (Vitamin B-12) 500 mcg PO DAILY@1400 07/14/21 12/07/21 [Vitamin B-12] Ascorbic Acid [Vitamin C] 1,000 mg PO DAILY@1400 12/01/21 12/07/21 Aspirin 81 mg PO DAILY@1200 12/01/21 12/07/21 Docusate Sodium [Dok] 100 mg PO DAILY@1200 12/01/21 12/07/21 Previous Rx's Medication Instructions Recorded Isosorbide Mononitrate ER [Imdur] 60 mg PO DAILY tab.er.24h 01/13/19 Allergies Allergy/AdvReac Type Severity Reaction Status Date / Time JORGITO Inhibitors Allergy Severe Swelling Verified 12/07/21 18:05 cortisone Allergy Severe Rash/Hives, Verified 12/07/21 18:05 high BP Calcium Channel Blocking AdvReac SORES IN Verified 12/07/21 18:05 Agent Dilt MOUTH sitagliptin [From Januvia] AdvReac Rapid Verified 12/07/21 18:05 Heart Rate dust,trees Allergy Itching Uncoded 12/07/21 18:05 Review of Systems ROS Statement: Those systems with pertinent positive or pertinent negative responses have been documented in the HPI. ROS Other: All systems not noted in ROS Statement are negative. Constitutional: Denies: fever, chills, weakness Respiratory: Reports: dyspnea. Denies: cough, wheezes, hemoptysis Cardiovascular: Reports: chest pain, edema (Chronic). Denies: palpitations, orthopnea, syncope Gastrointestinal: Reports: nausea. Denies: abdominal pain, vomiting, diarrhea Genitourinary: Denies: dysuria, hematuria Musculoskeletal: Denies: back pain Skin: Denies: rash Neurological: Denies: headache, weakness, numbness EKG Findings - EKG Comments: EKG Findings:: The 12-lead ECG shows paced rhythm at 67 bpm. - EKG Results: EKG: interpreted by AMELIA Past Medical History Past Medical History: Atrial Fibrillation, Coronary Artery Disease (CAD), Cancer, Chest Pain / Angina, Diabetes Mellitus, GERD/Reflux, Hyperlipidemia, Hypertension, Osteoarthritis (OA), Sleep Apnea/CPAP/BIPAP, Thyroid Disorder Additional Past Medical History / Comment(s): skin cancer, restless leg syndrome, varicose veins, IBS, History of Any Multi-Drug Resistant Organisms: None Reported Past Surgical History: Adenoidectomy, Appendectomy, Breast Surgery, Cholecystectomy, Heart Catheterization With Stent, Hysterectomy, Orthopedic Surgery, Pacemaker, Tonsillectomy Additional Past Surgical History / Comment(s): walt cataract, 3 stents, partial thyroidectomy, rt shoulder rotator cuff, walt breast biopsy, metal clip in rt breast Past Anesthesia/Blood Transfusion Reactions: No Reported Reaction Additional Past Anesthesia/Blood Transfusion Reaction / Comment(s): patient has never had a blood transfusion Date of Last Stent Placement:: 1998 Type of Cardiac Device: Permanent Pacemaker, Unknown Device Placement Date:: 2014 Past Psychological History: Anxiety Smoking Status: Never smoker Past Alcohol Use History: None Reported Past Drug Use History: None Reported - Past Family History Mother Additional Family Medical History / Comment(s): Mother at age 76 from massive stroke. Brother(s) Additional Family Medical History / Comment(s): The patient had a total of 3 brothers. One brother from melanoma. One brother is with history of coronary artery disease status post CABG. One brother has from colon cancer with history of coronary artery disease. Patient does not have any sisters. Daughter(s) Family Medical History: No Reported History (Healthy 1 daughter) Son(s) History Unknown: Yes (Healthy 3 sons) Additional Family Medical History / Comment(s): Patient has 3 sons and 1 daughter. One son has history of coronary artery disease, second son has history of AICD. Patient has 1 son and 1 daughter with no major medical problems. Father Additional Family Medical History / Comment(s): Father at age 59 from a myocardial infarction. General Exam Limitations: no limitations General appearance: alert, in no apparent distress Head exam: Present: atraumatic, normocephalic Eye exam: Present: normal appearance. Absent: scleral icterus, conjunctival injection Neck exam: Present: normal inspection Respiratory exam: Present: normal lung sounds bilaterally. Absent: respiratory distress, wheezes, rales, rhonchi, stridor Cardiovascular Exam: Present: regular rate, normal rhythm, systolic murmur. Absent: diastolic murmur, rubs, gallop GI/Abdominal exam: Present: soft. Absent: distended, tenderness, guarding, rebound, rigid, mass Extremities exam: Present: normal inspection, normal capillary refill, pedal edema. Absent: calf tenderness Back exam: Present: normal inspection Neurological exam: Present: alert Skin exam: Present: warm, dry, intact, normal color. 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 ] Respiratory 20 22 22 Rate Blood Pressure 164/86 137/71 Blood Pressure [Right Arm] O2 Sat by Pulse 95 99 Oximetry 12/01/21 12/01/21 12/01/21 06:31 10:30 12:00 Temperature Pulse Rate 67 60 64 Pulse Rate [ Hydroelectric Plant Electrician ] Respiratory 20 18 16 Rate Blood Pressure 119/74 170/100 149/136 Blood Pressure [Right Arm] O2 Sat by Pulse 97 99 94 L Oximetry 12/01/21 12/01/21 14:57 15:00 Temperature 97.5 F L Pulse Rate 65 Pulse Rate [ 85 Hydroelectric Plant Electrician ] Respiratory 16 18 Rate Blood Pressure 152/111 Blood Pressure 162/97 [Right Arm] O2 Sat by Pulse 94 L 95 Oximetry Disposition Clinical Impression: Chest pain Disposition: ADMITTED IP TO THIS HOSP Condition: Good
[2021-12-01] MEDS ORDERED: MORPHINE SULFATE 4 MG/ML SYRINGE IV STA (06:46)
[2021-12-01] MEDS ORDERED: NITROGLYCERIN SL TABS 0.4 MG TAB SUBLINGUAL STA (06:46)
[2021-12-01] MEDS ORDERED: NITROGLYCERIN SL TABS 0.4 MG TAB SUBLINGUAL PRN (07:16)
[2021-12-01] MEDS ORDERED: ISOSORBIDE MONONITRATE ER 60 MG TAB.ER.24H PO STA (11:26)
[2021-12-01] MEDS ORDERED: METOPROLOL TARTRATE 50 MG TAB PO STA (11:26)
[2021-12-01] MEDS ORDERED: cloNIDine HCL 0.1 MG TAB PO PRN (12:18)
[2021-12-01] MEDS ORDERED: NALOXONE 0.4 MG/ML 1 ML VIAL IV PRN (12:20)
--- NOTE | 2021-12-01 12:28 | P.HPIM ---
History of Present Illness H&P Date: 12/01/21 Chief Complaint: chest pain 89-year-old woman presenting to have evaluation for chest pain. Over the past week she has been having episodes of feeling like she is going to pass out. She is not sure if she actually passes out. She states that the episodes are so quick that she has not even have the time to feel dizzy. After these episodes she always gets palpitations, shortness of breath and chest pressure. She states that the symptoms have resolved now though she does have a headache she believes related to the nitroglycerin she took earlier. She was worked up by neurology for these episodes, had an MRI of the brain 6 month ago which was okay according to patient. She is scheduled to have an EEG to rule out seizure. He states that several months ago she was falling due to these episodes but now she is able to hold herself and not fall. She denied recent illness, no fevers or chills. Workup in the ER with an EKG and basic labs including troponins was negative. She was admitted for further evaluation by cardiology. Review of Systems Complete review of system was performed, negative except for what is stated in HPI Past Medical History Past Medical History: Atrial Fibrillation, Coronary Artery Disease (CAD), Cancer, Chest Pain / Angina, Diabetes Mellitus, GERD/Reflux, Hyperlipidemia, Hypertension, Osteoarthritis (OA), Sleep Apnea/CPAP/BIPAP, Thyroid Disorder Additional Past Medical History / Comment(s): skin cancer, restless leg syndrome, varicose veins, IBS, History of Any Multi-Drug Resistant Organisms: None Reported Past Surgical History: Adenoidectomy, Appendectomy, Breast Surgery, Cholecystec gunnar, Heart Catheterization With Stent, Hysterectomy, Orthopedic Surgery, Pacemaker, Tonsillectomy Additional Past Surgical History / Comment(s): walt cataract, 3 stents, partial thyroidectomy, rt shoulder rotator cuff, walt breast biopsy, metal clip in rt breast Past Anesthesia/Blood Transfusion Reactions: No Reported Reaction Additional Past Anesthesia/Blood Transfusion Reaction / Comment(s): patient has never had a blood transfusion Date of Last Stent Placement:: 1998 Type of Cardiac Device: Permanent Pacemaker, Unknown Device Placement Date:: 2014 Past Psychological History: Anxiety Smoking Status: Never smoker Past Alcohol Use History: None Reported Past Drug Use History: None Reported - Past Family History Mother Additional Family Medical History / Comment(s): Mother at age 76 from massive stroke. Brother(s) Additional Family Medical History / Comment(s): The patient had a total of 3 brothers. One brother from melanoma. One brother is with history of coronary artery disease status post CABG. One brother has from colon cancer with history of coronary artery disease. Patient does not have any sisters. Daughter(s) Family Medical History: No Reported History (Healthy 1 daughter) Son(s) History Unknown: Yes (Healthy 3 sons) Additional Family Medical History / Comment(s): Patient has 3 sons and 1 daughter. One son has history of coronary artery disease, second son has history of AICD. Patient has 1 son and 1 daughter with no major medical problems. Father Additional Family Medical History / Comment(s): Father at age 59 from a myocardial infarction. Medications and Allergies Home Medications Medication Instructions Recorded Confirmed Type Apixaban [Eliquis] 5 mg PO BID 04/19/17 12/01/21 History glipiZIDE XL [Glucotrol XL] 2.5 mg PO DAILY 04/19/17 12/01/21 History Levothyroxine Sodium [Synthroid] 75 mcg PO DAILY 05/26/17 12/01/21 History Estradiol 0.05MG/24Hr Biwkptch 1 patch TRANSDERM SUWE 01/13/19 12/01/21 History [Vivelle-Dot 0.05 MG] Isosorbide Mononitrate ER [Imdur] 60 mg PO DAILY tab.er.24h 01/13/19 12/01/21 Rx Atorvastatin [Lipitor] 20 mg PO HS 05/09/19 12/01/21 History Isosorbide Mononitrate ER [Imdur] 90 mg PO HS 05/09/19 12/01/21 History Spironolactone [Aldactone] 25 mg PO Q48H 05/09/19 12/01/21 History ALPRAZolam [Xanax] 0.25 mg PO HS 09/17/19 12/01/21 History hydrALAZINE HCL [Apresoline] 100 mg PO TID 09/17/19 12/01/21 History Metoprolol Tartrate [Lopressor] 100 mg PO TID 02/27/20 12/01/21 History cloNIDine HCL [Catapres] 0.1 mg PO TID PRN 06/16/20 12/01/21 History Furosemide [Lasix] 20 mg PO Q48H 07/05/20 12/01/21 History Nitroglycerin Sl Tabs [Nitrostat] 0.4 mg SL Q5M PRN 08/02/20 12/01/21 History Cholecalciferol (Vitamin D3) 75 mcg PO DAILY@1200 01/01/21 12/01/21 History [Vitamin D3 (3000 Iu)] cloNIDine HCL [Catapres] 0.2 mg PO TID 01/01/21 12/01/21 History Cyanocobalamin (Vitamin B-12) 500 mcg PO DAILY@1400 07/14/21 12/01/21 History [Vitamin B-12] Ascorbic Acid [Vitamin C] 1,000 mg PO DAILY@1400 12/01/21 12/01/21 History Aspirin 81 mg PO DAILY@1200 12/01/21 12/01/21 History Docusate Sodium [Dok] 100 mg PO DAILY@1200 12/01/21 12/01/21 History Allergies Allergy/AdvReac Type Severity Reaction Status Date / Time JORGITO Inhibitors Allergy Severe Swelling Verified 12/01/21 05:09 cortisone Allergy Severe Rash/Hives, Verified 12/01/21 05:09 high BP Calcium Channel Blocking AdvReac SORES IN Verified 12/01/21 05:09 Agent Dilt MOUTH sitagliptin [From Frediuvia] AdvReac Rapid Verified 12/01/21 05:09 Heart Rate dust,trees Allergy Itching Uncoded 12/01/21 05:09 Physical Exam Vitals: Vital Signs Temp Pulse Pulse Resp BP Pulse Ox 12/01/21 06:31 67 20 119/74 97 12/01/21 05:28 22 12/01/21 05:08 61 61 22 137/71 99 12/01/21 05:07 97.9 F 69 20 164/86 95 Intake and Output 11/30/21 12/01/21 12/01/21 22:59 06:59 14:59 Other: Weight 85.729 kg Constitutional: No acute distress, conversant, pleasant Eyes:Anicteric sclerae, moist conjunctiva, no lid-lag, PERRLA, ENMT: Oropharynx clear, no erythema, exudates Neck: Supple, FROM, no masses, or JVD, No carotid bruits, No thyromegaly Lungs: Clear to auscultation, Clear to percussion, Normal respiratory effort, no accessory muscle use Cardiovascular: Heart regular in rate and rhythm, No murmurs, gallops, or rubs, No peripheral edema Abdominal: Soft, Nontender, no guarding, rebound or rigidity, Normoactive bowel sounds, No hepatomegaly, No splenomegaly, No palpable mass Skin: Normal temperature, tone, texture, turgor, no induration, No subcutaneous nodules, No rash, lesions, No ulcers Extremities: No digital cyanosis, No clubbing, Pedal pulses intact and symmetrical, Radial pulses intact and symmetrical, No calf tenderness Psychiatric: Alert and oriented to person, place and time, appropriate affect, intact judgement Neuro: Muscles Strength 5/5 in all 4 extremities, Sensation to light touch grossly present throughout, Cranial nerves II-XII grossly intact, no focal sensory deficits Results CBC & Chem 7: 12/01/21 05:29 12/01/21 05:29 Labs: Abnormal Lab Results - Last 24 Hours (Table) 12/01/21 Range/Units 05:29 Sodium 134 L (137-145) mmol/L BUN 23 H (7-17) mg/dL Glucose 230 H (74-99) mg/dL AST 39 H (14-36) U/L Assessment and Plan Plan: Presyncopal episodes Chest pressure with hx of CAD s/p stenting. Rule out seizure, scheduled to have an EEG in the outpatient setting R/o ACS vs. arrhythmia Admit to tele Cycle trops Consult cardio. Hypothyroidism Check TSH Continue levothyroxine Chronic atrial fibrillation Diabetes Mellitus, GERD/Reflux, Hyperlipidemia, Hypertension, Osteoarthritis (OA), All stable resume meds Admit to observation
[2021-12-01] MEDS ORDERED: FUROSEMIDE 20 MG TAB PO SCH (12:30)
[2021-12-01] MEDS ORDERED: CYANOCOBALAMIN 500 MCG TAB PO SCH (14:00)
[2021-12-01] MEDS ORDERED: ASCORBIC ACID 500 MG TAB PO SCH (14:00)
[2021-12-01] MEDS: cloNIDine HCL 0.2 MG TAB PO SCH ×2 (14:13→20:55)
--- NOTE | 2021-12-01 15:08 | P.CRDCN ---
History of Present Illness History of present illness: This is Dr. Esteban dictating an H/P on this patient The patient was interviewed and examined IMPRESSION / ASSESSMENT: Episodes of presyncope possibly Chest discomfort with 3 normal cardiac enzymes Permanent atrial fibrillation with single-chamber pacemaker, [employer] Uncontrolled hypertension PLAN: Resume home medications for blood pressure Continue anticoagulation Interrogated pacemaker to look for any ventriclar tachyarrhythmias HPI 89-year-old female presenting with a feeling of passing out while she is sitting or lying in bed She complains of palpitations shortness of breath and chest pressure Prior to that she used to for one of these feelings occur when she's even lying in bed She has a [employer]tr[employer] pacemaker She follows with station supervisor in [facility], Dr. Christopher Carmona Past history of hypertension bradycardia permanent pacemaker implantation, single-chamber and atrial fibrillation, permanent ROS: No fever chills or rigors, no cough, phlegm or expectoration, no nausea, vomiting or diarrhea, no hematuria, dysuria, no musculoskeletal complaints, no strokes or seizures, no skin lesions. EXAMINATION: Elevated blood pressure reading Breath sounds are clear Normal heart sounds Abdomen soft Extremities warm Alert and oriented REVIEW OF LABS, ECG & MEDICAL DATA Twelve-lead EKG shows atrial fibrillation with ventricular paced rhythm No abnormalities on chest x-ray Past Medical History Past Medical History: Atrial Fibrillation, Coronary Artery Disease (CAD), Cancer, Chest Pain / Angina, Diabetes Mellitus, GERD/Reflux, Hyperlipidemia, Hypertension, Osteoarthritis (OA), Sleep Apnea/CPAP/BIPAP, Thyroid Disorder Additional Past Medical History / Comment(s): skin cancer, restless leg syndrome, varicose veins, IBS, History of Any Multi-Drug Resistant Organisms: None Reported Past Surgical History: Adenoidectomy, Appendectomy, Breast Surgery, Cholecystectomy, Heart Catheterization With Stent, Hysterectomy, Orthopedic Surgery, Pacemaker, Tonsillectomy Additional Past Surgical History / Comment(s): walt cataract, 3 stents, partial thyroidectomy, rt shoulder rotator cuff, walt breast biopsy, metal clip in rt breast Past Anesthesia/Blood Transfusion Reactions: No Reported Reaction Additional Past Anesthesia/Blood Transfusion Reaction / Comment(s): patient has never had a blood transfusion Date of Last Stent Placement:: 1998 Type of Cardiac Device: Permanent Pacemaker, Unknown Device Placement Date:: 2014 Past Psychological History: Anxiety Smoking Status: Never smoker Past Alcohol Use History: None Reported Past Drug Use History: None Reported - Past Family History Mother Additional Family Medical History / Comment(s): Mother at age 76 from massive stroke. Brother(s) Additional Family Medical History / Comment(s): The patient had a total of 3 brothers. One brother from melanoma. One brother is with history of coronary artery disease status post CABG. One brother has from colon cancer with history of coronary artery disease. Patient does not have any sisters. Daughter(s) Family Medical History: No Reported History (Healthy 1 daughter) Son(s) History Unknown: Yes (Healthy 3 sons) Additional Family Medical History / Comment(s): Patient has 3 sons and 1 daughter. One son has history of coronary artery disease, second son has history of AICD. Patient has 1 son and 1 daughter with no major medical problems. Father Additional Family Medical History / Comment(s): Father at age 59 from a myocardial infarction. Medications and Allergies Home Medications Medication Instructions Recorded Confirmed Type RX: Apixaban [Eliquis] 5 mg PO BID 04/19/17 12/01/21 History RX: glipiZIDE XL [Glucotrol XL] 2.5 mg PO DAILY 04/19/17 12/01/21 History RX: Levothyroxine Sodium 75 mcg PO DAILY 05/26/17 12/01/21 History [Synthroid] RX: Estradiol 0.05MG/24Hr Biwkptch 1 patch TRANSDERM SUWE 01/13/19 12/01/21 History [Vivelle-Dot 0.05 MG] RX: Isosorbide Mononitrate ER 60 mg PO DAILY tab.er.24h 01/13/19 12/01/21 Rx [Imdur] RX: Atorvastatin [Lipitor] 20 mg PO HS 05/09/19 12/01/21 History RX: Isosorbide Mononitrate ER 90 mg PO HS 05/09/19 12/01/21 History [Imdur] RX: Spironolactone [Aldactone] 25 mg PO Q48H 05/09/19 12/01/21 History RX: ALPRAZolam [Xanax] 0.25 mg PO HS 09/17/19 12/01/21 History RX: hydrALAZINE HCL [Apresoline] 100 mg PO TID 09/17/19 12/01/21 History RX: Metoprolol Tartrate [Lopressor] 100 mg PO TID 02/27/20 12/01/21 History RX: cloNIDine HCL [Catapres] 0.1 mg PO TID PRN 06/16/20 12/01/21 History RX: Furosemide [Lasix] 20 mg PO Q48H 07/05/20 12/01/21 History RX: Nitroglycerin Sl Tabs 0.4 mg SL Q5M PRN 08/02/20 12/01/21 History [Nitrostat] RX: Cholecalciferol (Vitamin D3) 75 mcg PO DAILY@1200 01/01/21 12/01/21 History [Vitamin D3 (3000 Iu)] RX: cloNIDine HCL [Catapres] 0.2 mg PO TID 01/01/21 12/01/21 History RX: Cyanocobalamin (Vitamin B-12) 500 mcg PO DAILY@1400 07/14/21 12/01/21 Hi story [Vitamin B-12] Ascorbic Acid [Vitamin C] 1,000 mg PO DAILY@1400 12/01/21 12/01/21 History Docusate Sodium [Dok] 100 mg PO DAILY@1200 12/01/21 12/01/21 History RX: Aspirin 81 mg PO DAILY@1200 12/01/21 12/01/21 History Allergies Allergy/AdvReac Type Severity Reaction Status Date / Time JORGITO Inhibitors Allergy Severe Swelling Verified 12/01/21 05:09 cortisone Allergy Severe Rash/Hives, Verified 12/01/21 05:09 high BP Calcium Channel Blocking AdvReac SORES IN Verified 12/01/21 05:09 Agent Dilt MOUTH sitagliptin [From Frediuvyifan] AdvReac Rapid Verified 12/01/21 05:09 Heart Rate dust,trees Allergy Itching Uncoded 12/01/21 05:09 Physical Exam Vitals: Vital Signs Temp Pulse Pulse Resp BP Pulse Ox 12/01/21 14:57 65 16 152/111 94 L 12/01/21 12:00 64 16 149/136 94 L 12/01/21 10:30 60 18 170/100 99 12/01/21 06:31 67 20 119/74 97 12/01/21 05:28 22 12/01/21 05:08 61 61 22 137/71 99 12/01/21 05:07 97.9 F 69 20 164/86 95 Intake and Output 12/01/21 12/01/21 12/01/21 06:59 14:59 22:59 Other: Weight 85.729 kg Results 12/01/21 05:29 12/01/21 05:29 Cardiac Enzymes 12/01/21 12/01/21 12/01/21 Range/Units 05:29 05:29 08:16 AST 39 H (14-36) U/L Troponin I <0.012 <0.012 (0.000-0.034) ng/mL 12/01/21 Range/Units 11:40 AST (14-36) U/L Troponin I <0.012 (0.000-0.034) ng/mL Coagulation 12/01/21 Range/Units 05:29 PT 10.9 (9.0-12.0) sec APTT 24.6 (22.0-30.0) sec CBC 12/01/21 Range/Units 05:29 WBC 7.0 (3.8-10.6) k/uL RBC 4.36 (3.80-5.40) m/uL Hgb 13.7 (11.4-16.0) gm/dL Hct 42.5 (34.0-46.0) % Plt Count 200 (150-450) k/uL Comprehensive Metabolic Panel 12/01/21 Range/Units 05:29 Sodium 134 L (137-145) mmol/L Potassium 4.2 (3.5-5.1) mmol/L Chloride 100 (98-107) mmol/L Carbon Dioxide 30 (22-30) mmol/L BUN 23 H (7-17) mg/dL Creatinine 0.81 (0.52-1.04) mg/dL Glucose 230 H (74-99) mg/dL Calcium 9.3 (8.4-10.2) mg/dL AST 39 H (14-36) U/L ALT 31 (4-34) U/L Alkaline Phosphatase 77 (38-126) U/L Total Protein 6.6 (6.3-8.2) g/dL Albumin 3.6 (3.5-5.0) g/dL Current Medications Generic Name Dose Route Start Last Admin Trade Name Freq PRN Reason Stop Dose Admin Alprazolam 0.25 mg 04/23/22 21:00 Alprazolam 0.25 Mg Tab PO HS [facility] Apixaban 5 mg 12/01/21 21:00 Apixaban 5 Mg Tab PO BID [facility] Protocol Ascorbic Acid 1,000 mg 12/01/21 14:00 12/01/21 14:13 Ascorbic Acid 500 Mg Tab PO 1,000 mg DAILY@1400 [facility] Administration Aspirin 325 mg 12/02/21 09:00 Aspirin 325 Mg Tab PO DAILY [facility] Aspirin 81 mg 12/02/21 12:00 Aspirin 81 Mg PO DAILY@1200 [facility] Atorvastatin Calcium 20 mg 12/01/21 21:00 Atorvastatin 20 Mg Tab PO HS [facility] Cholecalciferol 75 mcg 12/02/21 12:00 Cholecalciferol 25 Mcg (1000 Iu) Tablet PO DAILY@1200 [facility] Clonidine 0.2 mg 12/01/21 16:00 12/01/21 14:13 Clonidine Hcl 0.2 Mg Tab PO 0.2 mg TID [facility] Administration Clonidine 0.1 mg 12/01/21 12:18 Clonidine Hcl 0.1 Mg Tab PO TID PRN BP OVER 150 Cyanocobalamin 500 mcg 12/01/21 14:00 12/01/21 14:13 Cyanocobalamin 500 Mcg Tab PO 500 mcg DAILY@1400 [facility] Administration Furosemide 20 mg 12/01/21 12:30 12/01/21 12:57 Furosemide 20 Mg Tab PO Not Given Q48H [facility] Glipizide 2.5 mg 12/02/21 09:00 Glipizide 2.5 Mg Tab PO DAILY [facility] Hydralazine HCl 100 mg 12/01/21 16:00 Hydralazine Hcl 50 Mg Tab PO TID [facility] Isosorbide Mononitrate 60 mg 12/02/21 09:00 Isosorbide Mononitrate Er 60 Mg Tab.Er.24h PO DAILY [facility] Isosorbide Mononitrate 90 mg 12/01/21 21:00 Isosorbide Mononitrate Er 30 Mg Tab.Er.24h PO HS [facility] Levothyroxine Sodium 75 mcg 12/02/21 06:30 Levothyroxine 75 Mcg Tab PO DAILY@0630 [facility] Metoprolol Tartrate 100 mg 12/01/21 16:00 Metoprolol Tartrate 50 Mg Tab PO TID [facility] Naloxone HCl 0.2 mg 12/01/21 12:20 Naloxone 0.4 Mg/Ml 1 Ml Vial IV Q2M PRN Opioid Reversal Nitroglycerin 0.4 mg 12/01/21 07:16 12/01/21 10:00 Nitroglycerin Sl Tabs 0.4 Mg Tab SUBLINGUAL 0.4 mg Q5M PRN Administration Chest Pain Sodium Chloride 10 ml 12/01/21 09:00 12/01/21 10:01 Sodium Chloride 0.9% Flush 10 Ml Syringe IV 10 ml BID [facility] Administration Spironolactone 25 mg 12/02/21 12:00 Spironolactone 25 Mg Tab PO Q48H [facility] Intake and Output 12/01/21 12/01/21 12/01/21 06:59 14:59 22:59 Other: Weight 85.729 kg 12/01/21 05:29 12/01/21 05:29
[2021-12-01] MEDS: METOPROLOL TARTRATE 50 MG TAB PO SCH ×2 (17:00→20:55)
[2021-12-01] MEDS: hydrALAZINE HCL 50 MG TAB PO SCH ×2 (17:01→20:55)
[2021-12-01] MEDS: APIXABAN 5 MG TAB PO SCH (20:10)
[2021-12-01] MEDS ORDERED: ISOSORBIDE MONONITRATE ER 30 MG TAB.ER.24H PO SCH (21:00)
[2021-12-01] MEDS ORDERED: ALPRAZolam 0.25 MG TAB PO SCH (21:00)
[2021-12-01] MEDS ORDERED: ATORVASTATIN 20 MG TAB PO SCH (21:00)
[2021-12-02 03:26] VITALS: RESP 16
[2021-12-02] MEDS ORDERED: LEVOTHYROXINE 75 MCG TAB PO SCH (06:30)
[2021-12-02] MEDS: APIXABAN 5 MG TAB PO SCH (07:53)
[2021-12-02] MEDS: METOPROLOL TARTRATE 50 MG TAB PO SCH (07:54)
[2021-12-02] MEDS: cloNIDine HCL 0.2 MG TAB PO SCH (07:54)
[2021-12-02] MEDS: hydrALAZINE HCL 50 MG TAB PO SCH (07:54)
[2021-12-02 08:19] VITALS: BP 151/82; PULSE 66; TEMP 98.1
[2021-12-02] MEDS ORDERED: ASPIRIN 325 MG TAB PO SCH (09:00)
[2021-12-02] MEDS ORDERED: ISOSORBIDE MONONITRATE ER 60 MG TAB.ER.24H PO SCH (09:00)
[2021-12-02 11:55] LABS: Chol/HDL Ratio 2.95 Ratio; LDL Cholesterol,Calculated 58.1 mg/dL (0.0-131.0)
[2021-12-02] MEDS ORDERED: CHOLECALCIFEROL 25 MCG (1000 IU) TABLET PO SCH (12:00)
[2021-12-02] MEDS ORDERED: SPIRONOLACTONE 25 MG TAB PO SCH (12:00)
[2021-12-02] MEDS ORDERED: ASPIRIN 81 MG PO SCH (12:00)
--- NOTE | 2021-12-02 12:23 | P.DS ---
Providers Date of admission: 12/01/21 07:16 Expected date of discharge: 12/02/21 Attending physician: Royce Curran MD Consults: 12/01/21 07:16 Consult Physician Routine Consulting Provider: Piter Huynh Consult Reason/Comments: chest pain Do you want consulting provider notified?: Yes Primary care physician: [facility] Course: 89-year-old woman presenting to have evaluation for chest pain. Over the past week she has been having episodes of feeling like she is going to pass out. She is not sure if she actually passes out. She states that the episodes are so quick that she has not even have the time to feel dizzy. After these episodes she always gets palpitations, shortness of breath and chest pressure. She states that the symptoms have resolved now though she does have a headache she believes related to the nitroglycerin she took earlier. She was worked up by neurology for these episodes, had an MRI of the brain 6 month ago which was okay according to patient. She is scheduled to have an EEG to rule out seizure. He states that several months ago she was falling due to these episodes but now she is able to hold herself and not fall. She denied recent illness, no fevers or chills. Workup in the ER with an EKG and basic labs including troponins was negative. She was admitted for further evaluation by cardiology. Upon admission, trops were cycled and remained negative times 3. Chest pain resolved. She was seen by Dr. Esteban who did a device interrogation and that did not show any arrhythmias. Cardio did not recommend any further i nvestigations for now. She will follow with her PCP and her preload supervisor in the office. Plan - Discharge Summary Discharge Rx Participant: Yes New Discharge Prescriptions: Continue glipiZIDE XL [Glucotrol XL] 2.5 mg PO DAILY Apixaban [Eliquis] 5 mg PO BID Levothyroxine Sodium [Synthroid] 75 mcg PO DAILY Estradiol 0.05MG/24Hr Biwkptch [Vivelle-Dot 0.05 MG] 1 patch TRANSDERM SUWE Isosorbide Mononitrate ER [Imdur] 60 mg PO DAILY tab.er.24h Spironolactone [Aldactone] 25 mg PO Q48H Atorvastatin [Lipitor] 20 mg PO HS Isosorbide Mononitrate ER [Imdur] 90 mg PO HS hydrALAZINE HCL [Apresoline] 100 mg PO TID ALPRAZolam [Xanax] 0.25 mg PO HS Metoprolol Tartrate [Lopressor] 100 mg PO TID cloNIDine HCL [Catapres] 0.1 mg PO TID PRN PRN Reason: BP OVER 150 Furosemide [Lasix] 20 mg PO Q48H Nitroglycerin Sl Tabs [Nitrostat] 0.4 mg SL Q5M PRN PRN Reason: Chest Pain Cholecalciferol (Vitamin D3) [Vitamin D3 (3000 Iu)] 75 mcg PO DAILY@1200 Cyanocobalamin (Vitamin B-12) [Vitamin B-12] 500 mcg PO DAILY@1400 Ascorbic Acid [Vitamin C] 1,000 mg PO DAILY@1400 Docusate Sodium [Dok] 100 mg PO DAILY@1200 cloNIDine HCL [Catapres] 0.2 mg PO TID Aspirin 81 mg PO DAILY@1200 Discharge Medication List Apixaban [Eliquis] 5 mg PO BID 04/19/17 [History] glipiZIDE XL [Glucotrol XL] 2.5 mg PO DAILY 04/19/17 [History] Levothyroxine Sodium [Synthroid] 75 mcg PO DAILY 05/26/17 [History] Estradiol 0.05MG/24Hr Biwkptch [Vivelle-Dot 0.05 MG] 1 patch TRANSDERM SUWE 01/13/19 [History] Isosorbide Mononitrate ER [Imdur] 60 mg PO DAILY tab.er.24h 01/13/19 [Rx] Atorvastatin [Lipitor] 20 mg PO HS 05/09/19 [History] Isosorbide Mononitrate ER [Imdur] 90 mg PO HS 05/09/19 [History] Spironolactone [Aldactone] 25 mg PO Q48H 05/09/19 [History] ALPRAZolam [Xanax] 0.25 mg PO HS 09/17/19 [History] hydrALAZINE HCL [Apresoline] 100 mg PO TID 09/17/19 [History] Metoprolol Tartrate [Lopressor] 100 mg PO TID 02/27/20 [History] cloNIDine HCL [Catapres] 0.1 mg PO TID PRN 11/06/20 [History] Furosemide [Lasix] 20 mg PO Q48H 07/05/20 [History] Nitroglycerin Sl Tabs [Nitrostat] 0.4 mg SL Q5M PRN 08/02/20 [History] Cholecalciferol (Vitamin D3) [Vitamin D3 (3000 Iu)] 75 mcg PO DAILY@1200 01/01/21 [History] cloNIDine HCL [Catapres] 0.2 mg PO TID 01/01/21 [History] Cyanocobalamin (Vitamin B-12) [Vitamin B-12] 500 mcg PO DAILY@1400 07/14/21 [History] Ascorbic Acid [Vitamin C] 1,000 mg PO DAILY@1400 12/01/21 [History] Aspirin 81 mg PO DAILY@1200 12/01/21 [History] Docusate Sodium [Dok] 100 mg PO DAILY@1200 12/01/21 [History] Follow up Appointment(s)/Referral(s): Karlo Locke MD [Primary Care Provider] - 1-2 days
--- NOTE | 2021-12-02 13:05 | P.PN ---
Subjective Progress Note Date: 12/02/21 The patient is an 89-year-old female who is currently admitted with presyncope and chest discomfort. ACS workup was unremarkable, however she was noted to have uncontrolled hypertension. Device interrogation showed no ventricular arrhythmia. The patient was interviewed and examined sitting comfortably on the side of her bed. She states she is feeling much better this morning. No more chest pain or chest pressure. No shortness of breath. No dizziness or lightheadedness. GENERAL: Well-appearing, well-nourished and in no acute distress. NECK: Supple without JVD or thyromegaly. LUNGS: Breath sounds clear to auscultation bilaterally. Respiration equal and unlabored. No wheezes, rales or rhonchi. HEART: Regular rate and rhythm without murmurs, rubs or gallops. S1 and S2 heard. EXTREMITIES: Normal range of motion, mild edema. No clubbing or cyanosis. Peripheral pulses intact. VITALS: Blood pressure 151/82, pulse 66, temp 98.1F, respiratory rate 16, pulse ox 97% on room air TELEMETRY: Ventricular paced rhythm IMPRESSION: Chest pain, resolved, normal troponins Presyncope, likely secondary to elevated blood pressure readings Hypertension, improving Persistent atrial fibrillation Diabetes mellitus Status post permanent pacemaker, no ventricular arrhythmias on interrogation PLAN: No change in medication regimen Patient may be discharged from the cardiac standpoint and follow up with primary supplier quality engineer at [place] I am dictating on behalf of Dr Saul Esteban's history/physical and assessment/plan.coughing overnight Objective - Vital Signs Vital signs: Vital Signs Temp 98.1 F 12/02/21 07:00 Pulse 66 12/02/21 07:00 Resp 16 12/02/21 07:00 BP 151/82 12/02/21 07:00 Pulse Ox 97 12/02/21 07:00 Intake & Output 12/01/21 12/02/21 12/02/21 18:59 06:59 18:59 Intake Total 236 240 Balance 236 240 Weight 85.729 kg Intake: Oral 236 240 Other: # Voids 1 - Labs CBC & Chem 7: 12/01/21 05:29 12/01/21 05:29 Labs: Abnormal Lab Results - Last 24 Hours (Table) 12/01/21 Range/Units 05:29 TSH 5.730 H (0.350-5.500) uIU/mL
== END 2021-12-02 14:22 | disposition home or self-care (01) ==
LOC: EC 05:03 → 6NMEDSUR 07:16
PROVIDERS: ADMIT Internal Medicine; ATTEND Internal Medicine
DX: R07.2 Precordial pain (principal); I48.21 Permanent atrial fibrillation; E03.9 Hypothyroidism, unspecified; I10 Essential (primary) hypertension; E11.9 Type 2 diabetes mellitus without complications; R55 Syncope and collapse; E78.5 Hyperlipidemia, unspecified; K21.9 Gastro-esophageal reflux disease without esophagitis; I25.10 Atherosclerotic heart disease of native coronary artery without angina pectoris; F41.9 Anxiety disorder, unspecified; M19.90 Unspecified osteoarthritis, unspecified site; I83.90 Asymptomatic varicose veins of unspecified lower extremity; K58.9 Irritable bowel syndrome, unspecified; R60.9 Edema, unspecified; G47.30 Sleep apnea, unspecified; G25.81 Restless legs syndrome; Z79.01 Long term (current) use of anticoagulants; Z79.82 Long term (current) use of aspirin; Z79.84 Long term (current) use of oral hypoglycemic drugs; Z79.890 Hormone replacement therapy; Z79.899 Other long term (current) drug therapy; J30.1 Allergic rhinitis due to pollen; Z88.8 Allergy status to other drugs, medicaments and biological substances; Z88.9 Allergy status to unspecified drugs, medicaments and biological substances; Z98.41 Cataract extraction status, right eye; Z98.42 Cataract extraction status, left eye; Z96.1 Presence of intraocular lens; Z95.0 Presence of cardiac pacemaker; Z90.710 Acquired absence of both cervix and uterus; Z95.5 Presence of coronary angioplasty implant and graft; Z85.828 Personal history of other malignant neoplasm of skin; Z90.49 Acquired absence of other specified parts of digestive tract; Z80.0 Family history of malignant neoplasm of digestive organs; Z80.8 Family history of malignant neoplasm of other organs or systems; Z82.3 Family history of stroke; Z82.49 Family history of ischemic heart disease and other diseases of the circulatory system
CPT/HCPCS: 99285; 96374; 36415; 93005; 80061; 80053; 83735; 84443; 84484; 85025; 85610; 85730; 71046; G0378 ×2; J2270

== ENCOUNTER → 2021-12-06 | Outpatient (CLI) | payer MEDICARE ==
--- NOTE | 2021-12-06 14:50 | EEG ---
ELECTROENCEPHALOGRAM REPORT DATE OF SERVICE: 12/06/2021. CLINICAL HISTORY: This is an 89-year-old woman with reported syncopal episodes. The video EEG is obtained to evaluate for seizure epileptiform activity. Relevant medication: Per chart, none medications are reported. EEG TYPE: A routine 21-channel EEG is performed with video using the 10/20 electrode placement system. DESCRIPTION: Wakefulness and drowsiness are obtained. During awake state the posterior- dominant rhythm consists of low to moderate voltage of 8.5 to 9.5 hertz activity that is well modulated and well sustained. There is no physiological stage 2 sleep architecture. There is no focal slowing. Interictal and ictal is none. ACTIVATION PROCEDURE: Photic stimulation did evoke a posterior driving response at multiple low flash frequencies. There is no abnormality during the photic stimulation. Hyperventilation was not performed. CLINICAL INTERPRETATION: This is a normal routine EEG. There is no focal slowing, epileptiform discharges or seizure on the EEG. Clinical correlation is recommended. If there continues to be concern about seizure, recommend a prolonged ambulatory EEG (2- 1/2-hour EEG) as an outpatient. MMODL / IJN: [id number] / YASMIN
== END ==
LOC: NEUROMAIN 07:55
PROVIDERS: ATTEND Psychiatry & Neurology Neurology
DX: R46.89 Other symptoms and signs involving appearance and behavior (principal); Z88.8 Allergy status to other drugs, medicaments and biological substances; Z91.09 Other allergy status, other than to drugs and biological substances; Z87.891 Personal history of nicotine dependence
CPT/HCPCS: 95816

== ENCOUNTER 2021-12-07 14:54 | Emergency (ER) | payer MEDICARE ==
[2021-12-07 15:02] VITALS: TEMP 98.1
[2021-12-07] MEDS ORDERED: SODIUM CHLORIDE 0.9% 500 ML 500 ML IV STA (16:20)
[2021-12-07 18:20] LABS: Basophils # (A) 0.1 k/uL (0-0.2); Basophils % (A) 1 %; Eosinophils # (A) 0.1 k/uL (0-0.7); Eosinophils % (A) 2 %; HCT 44.6 % (34.0-46.0); HGB 14.3 gm/dL (11.4-16.0); Lymphocytes # (A) 1.4 k/uL (1.0-4.8); Lymphocytes % (A) 14 %; MCH 30.7 pg (25.0-35.0); MCHC 32.1 g/dL (31.0-37.0); MCV 95.9 fL (80.0-100.0); Mean Platelet Volume 7.8; Monocytes # (A) 0.9 k/uL (0-1.0); Monocytes % (A) 9 %; Neutrophils # (A) 6.7 k/uL (1.3-7.7); Neutrophils % (A) 71 %; Platelet Count 260 k/uL (150-450); RBC 4.65 m/uL (3.80-5.40); RDW 13.6 % (11.5-15.5); WBC 9.4 k/uL (3.8-10.6)
[2021-12-07 18:30] LABS: ALT 23 U/L (4-34); AST 47 U/L (14-36); African American GFR (CKD) >90 (>60 ml/min/1.73 sqM); Alkaline Phosphatase 90 U/L (38-126); Amylase 36 U/L (30-110); Anion Gap 7 mmol/L; Blood Urea Nitrogen 18 mg/dL (7-17); Calcium 9.5 mg/dL (8.4-10.2); Carbon Dioxide 28 mmol/L (22-30); Chloride 100 mmol/L (98-107); Glucose 173 mg/dL (74-99); Lipase 35 U/L (23-300); Non-African American GFR(CKD) 79 (>60 ml/min/1.73 sqM); Sodium 135 mmol/L (137-145); Total Bilirubin 1.7 mg/dL (0.2-1.3); Total Protein 7.7 g/dL (6.3-8.2)
--- NOTE | 2021-12-07 18:38 | XR ---
EXAMINATION TYPE: XR chest 2V DATE OF EXAM: 12/07/2021 COMPARISON: 12/01/2021 HISTORY: Cough TECHNIQUE: FINDINGS: Heart is enlarged. No heart failure seen. There is left axillary pacemaker. Costophrenic an gles are clear. There are no hilar masses. Bony thorax is intact. IMPRESSION: Cardiomegaly. No acute lung disease. No adverse change compared to old exam.
--- NOTE | 2021-12-07 18:46 | ED ---
General Adult HPI - General Chief complaint: Upper Respiratory Infection Stated complaint: Fever,Cough,Body aches Time Seen by Provider: 12/07/21 16:11 Source: patient Mode of arrival: ambulatory Limitations: no limitations - History of Present Illness Initial comments: Patient is an 89-year-old female presenting with chief complaint of body aches and cough. Patient states that symptoms began yesterday. Cough is dry, patient states that she is having "lung pain" which she describes as residual pain after coughing. Patient has a history of angina and states that this pain does not feel similar to those episodes. Patient also admits to abdominal pain. She states that it is diffuse and feels worse when even small amounts of pressure applied to her abdomen. No change with eating. She admits to one episode of nausea today after taking her Keflex for a small wound of her layne, no vomiting, diarrhea, constipation, hematochezia, fever, chills. She denies dysuria, hematuria, urgency, frequency, flank pain, radiation of abdominal pain to the ba ck, weakness, dizziness, fall, loss of consciousness, vision or hearing changes, headache, neck pain or stiffness. - Related Data Home Medications Medication Instructions Recorded Confirmed Apixaban [Eliquis] 5 mg PO BID 04/19/17 12/07/21 glipiZIDE XL [Glucotrol XL] 2.5 mg PO DAILY 04/19/17 12/07/21 Levothyroxine Sodium [Synthroid] 75 mcg PO DAILY 05/26/17 12/07/21 Estradiol 0.05MG/24Hr Biwkptch 1 patch TRANSDERM SUWE 01/13/19 12/07/21 [Vivelle-Dot 0.05 MG] Atorvastatin [Lipitor] 20 mg PO HS 05/09/19 12/07/21 Isosorbide Mononitrate ER [Imdur] 90 mg PO HS 05/09/19 12/07/21 Spironolactone [Aldactone] 25 mg PO Q48H 05/09/19 12/07/21 ALPRAZolam [Xanax] 0.25 mg PO HS 09/17/19 12/07/21 hydrALAZINE HCL [Apresoline] 100 mg PO TID 09/17/19 12/07/21 Metoprolol Tartrate [Lopressor] 100 mg PO TID 02/27/20 12/07/21 cloNIDine HCL [Catapres] 0.1 mg PO TID PRN 06/16/20 12/07/21 Furosemide [Lasix] 20 mg PO Q48H 07/05/20 12/07/21 Nitroglycerin Sl Tabs [Nitrostat] 0.4 mg SL Q5M PRN 08/02/20 12/07/21 Cholecalciferol (Vitamin D3) 75 mcg PO DAILY@1200 01/01/21 12/07/21 [Vitamin D3 (3000 Iu)] cloNIDine HCL [Catapres] 0.2 mg PO TID 01/01/21 12/07/21 Cyanocobalamin (Vitamin B-12) 500 mcg PO DAILY@1400 07/14/21 12/07/21 [Vitamin B-12] Ascorbic Acid [Vitamin C] 1,000 mg PO DAILY@1400 12/01/21 12/07/21 Aspirin 81 mg PO DAILY@1200 12/01/21 12/07/21 Docusate Sodium [Dok] 100 mg PO DAILY@1200 12/01/21 12/07/21 Previous Rx's Medication Instructions Recorded Isosorbide Mononitrate ER [Imdur] 60 mg PO DAILY tab.er.24h 01/13/19 Allergies Allergy/AdvReac Type Severity Reaction Status Date / Time JORGITO Inhibitors Allergy Severe Swelling Verified 12/07/21 18:05 cortisone Allergy Severe Rash/Hives, Verified 12/07/21 18:05 high BP Calcium Channel Blocking AdvReac SORES IN Verified 12/07/21 18:05 Agent Dilt MOUTH sitagliptin [From Januvia] AdvReac Rapid Verified 12/07/21 18:05 Heart Rate dust,trees Allergy Itching Uncoded 12/07/21 18:05 Review of Systems ROS Statement: Those systems with pertinent positive or pertinent negative responses have been documented in the HPI. ROS Other: All systems not noted in ROS Statement are negative. Past Medical History Past Medical History: Atrial Fibrillation, Coronary Artery Disease (CAD), Cancer, Chest Pain / Angina, Diabetes Mellitus, GERD/Reflux, Hyperlipidemia, Hypertension, Osteoarthritis (OA), Sleep Apnea/CPAP/BIPAP, Thyroid Disorder Additional Past Medical History / Comment(s): skin cancer, restless leg syndrome, varicose veins, IBS, History of Any Multi-Drug Resistant Organisms: None Reported Past Surgical History: Adenoidectomy, Appendectomy, Breast Surgery, Cholecystectomy, Heart Catheterization With Stent, Hysterectomy, Orthopedic Surgery, Pacemaker, Tonsillectomy Additional Past Surgical History / Comment(s): walt cataract, 3 stents, partial thyroidectomy, rt shoulder rotator cuff, walt breast biopsy, metal clip in rt breast Past Anesthesia/Blood Transfusion Reactions: No Reported Reaction Additional Past Anesthesia/Blood Transfusion Reaction / Comment(s): patient has never had a blood transfusion Date of Last Stent Placement:: 2014 Type of Cardiac Device: Permanent Pacemaker Device Placement Date:: 2015 Past Psychological History: Anxiety Smoking Status: Never smoker Past Alcohol Use History: None Reported Past Drug Use History: None Reported - Past Family History Mother Additional Family Medical History / Comment(s): Mother at age 76 from massive stroke. Brother(s) Additional Family Medical History / Comment(s): The patient had a total of 3 brothers. One brother from melanoma. One brother is with history of coronary artery disease status post CABG. One brother has from colon cancer with history of coronary artery disease. Patient does not have any sisters. Son(s) History Unknown: Yes (Healthy 3 sons) Additional Family Medical History / Comment(s): Patient has 3 sons and 1 daughter. One son has history of coronary artery disease, second son has history of AICD. Patient has 1 son and 1 daughter with no major medical problems. Father Additional Family Medical History / Comment(s): Father at age 59 from a myocardial infarction. General Exam Limitations: no limitations General appearance: alert, in no apparent distress Head exam: Present: atraumatic, normocephalic, normal inspection Eye exam: Present: normal appearance, EOMI. Absent: scleral icterus Neck exam: Present: normal inspection Respiratory exam: Present: normal lung sounds bilaterally. Absent: respiratory distress, wheezes, rales, rhonchi, stridor Cardiovascular Exam: Present: regular rate, normal rhythm, normal heart sounds. Absent: systolic murmur, diastolic murmur, rubs, gallop, clicks GI/Abdominal exam: Present: soft, tenderness (diffuse), normal bowel sounds. Absent: distended, guarding, rebound, rigid Neurological exam: Present: alert, oriented X3, CN II-XII intact Psychiatric exam: Present: normal affect, normal mood Skin exam: Present: warm, dry, intact, normal color. Absent: rash Course Vital Signs 12/07/21 12/07/21 12/07/21 15:00 17:03 18:47 Temperature 98.1 F Pulse Rate 82 119 H Respiratory 20 18 16 Rate Blood Pressure 163/96 160/88 O2 Sat by Pulse 96 98 Oximetry 12/07/21 20:59 Temperature Pulse Rate 95 Respiratory 19 Rate Blood Pressure 150/80 O2 Sat by Pulse 97 Oximetry Medical Decision Making - Medical Decision Making Patient is an 89 y/o female presenting with CC of cough and body aches for the last day. She also admits to diffuse abdominal pain one episode of nausea today. On exam abdomen is diffusely tender, normal bowel sounds in all 4 quadra nts. Lungs are clear to auscultation, normal heart sounds. Lab work shows no leukocytosis. No hyperkalemia. No indications of UTI on UA. Patient is negative for coronavirus influenza. Chest x-ray shows some cardiomegaly, no acute lung disease. No adverse change compared to old exam. CT abdomen and pelvis with contrast shows colonic diverticulosis without diverticulitis. No acute abnormality of the abdomen and pelvis. No adverse change compared to old exam. Mild hiatal hernia unchanged. Patient was given 500 L bolus and 4 mg of Zofran ODT. On reassessment patient states that her symptoms have subsided and she feels much better. Patient appears stable for discharge with outpatient follow-up at this time. Follow-up with PCP on Friday. Educated the patient on return parameters and answer all questions. Educated the patient on supportive treatment. Report back to ER with any worsening symptoms. Patient conveyed verbal understanding and agreed to the plan. I discussed this case with my attending Dr. Thorpe. - Lab Data Result diagrams: 12/07/21 18:16 12/07/21 20:43 Lab Results 12/07/21 12/07/21 12/07/21 Range/Units 15:03 17:14 18:16 WBC 9.4 (3.8-10.6) k/uL RBC 4.65 (3.80-5.40) m/uL Hgb 14.3 (11.4-16.0) gm/dL Hct 44.6 (34.0-46.0) % MCV 95.9 (80.0-100.0) fL MCH 30.7 (25.0-35.0) pg MCHC 32.1 (31.0-37.0) g/dL RDW 13.6 (11.5-15.5) % Plt Count 260 (150-450) k/uL MPV 7.8 Neutrophils % 71 % Lymphocytes % 14 % Monocytes % 9 % Eosinophils % 2 % Basophils % 1 % Neutrophils # 6.7 (1.3-7.7) k/uL Lymphocytes # 1.4 (1.0-4.8) k/uL Monocytes # 0.9 (0-1.0) k/uL Eosinophils # 0.1 (0-0.7) k/uL Basophils # 0.1 (0-0.2) k/uL PT (9.0-12.0) sec INR (<1.2) APTT (22.0-30.0) sec Sodium (137-145) mmol/L Potassium (3.5-5.1) mmol/L Chloride (98-107) mmol/L Carbon Dioxide (22-30) mmol/L Anion Gap mmol/L BUN (7-17) mg/dL Creatinine (0.52-1.04) mg/dL Est GFR (CKD-EPI)AfAm (>60 ml/min/1.73 sqM) Est GFR (CKD-EPI)NonAf (>60 ml/min/1.73 sqM) Glucose (74-99) mg/dL Plasma Lactic Acid Narciso (0.7-2.0) mmol/L Calcium (8.4-10.2) mg/dL Total Bilirubin (0.2-1.3) mg/dL AST (14-36) U/L ALT (4-34) U/L Alkaline Phosphatase (38-126) U/L Troponin I (0.000-0.034) ng/mL Total Protein (6.3-8.2) g/dL Albumin (3.5-5.0) g/dL Amylase (30-110) U/L Lipase (23-300) U/L Urine Color Urine Appearance (Clear) Urine pH (5.0-8.0) Ur Specific [place] (1.001-1.035) Urine Protein (Negative) Urine Glucose (UA) (Negative) Urine Ketones (Negative) Urine Blood (Negative) Urine Nitrite (Negative) Urine Bilirubin (Negative) Urine Urobilinogen (<2.0) mg/dL Ur Leukocyte Esterase (Negative) Coronavirus (PCR) Not Detected (Not Detectd) Influenza Type A RNA Not Detected (Not Detectd) Influenza Type B (PCR) Not Detected (Not Detectd) 12/07/21 12/07/21 12/07/21 Range/Units 18:16 18:16 18:16 WBC (3.8-10.6) k/uL RBC (3.80-5.40) m/uL Hgb (11.4-16.0) gm/dL Hct (34.0-46.0) % MCV (80.0-100.0) fL MCH (25.0-35.0) pg MCHC (31.0-37.0) g/dL RDW (11.5-15.5) % Plt Count (150-450) k/uL MPV Neutrophils % % Lymphocytes % % Monocytes % % Eosinophils % % Basophils % % Neutrophils # (1.3-7.7) k/uL Lymphocytes # (1.0-4.8) k/uL Monocytes # (0-1.0) k/uL Eosinophils # (0-0.7) k/uL Basophils # (0-0.2) k/uL PT 10.9 (9.0-12.0) sec INR 1.0 (<1.2) APTT 25.1 (22.0-30.0) sec Sodium 135 L (137-145) mmol/L Potassium 5.9 H (3.5-5.1) mmol/L Chloride 100 (98-107) mmol/L Carbon Dioxide 28 (22-30) mmol/L Anion Gap 7 mmol/L BUN 18 H (7-17) mg/dL Creatinine 0.66 (0.52-1.04) mg/dL Est GFR (CKD-EPI)AfAm >90 (>60 ml/min/1.73 sqM) Est GFR (CKD-EPI)NonAf 79 (>60 ml/min/1.73 sqM) Glucose 173 H (74-99) mg/dL Plasma Lactic Acid Narciso 1.6 (0.7-2.0) mmol/L Calcium 9.5 (8.4-10.2) mg/dL Total Bilirubin 1.7 H (0.2-1.3) mg/dL AST 47 H (14-36) U/L ALT 23 (4-34) U/L Alkaline Phosphatase 90 (38-126) U/L Troponin I (0.000-0.034) ng/mL Total Protein 7.7 (6.3-8.2) g/dL Albumin 4.0 (3.5-5.0) g/dL Amylase 36 (30-110) U/L Lipase 35 (23-300) U/L Urine Color Urine Appearance (Clear) Urine pH (5.0-8.0) Ur Specific [place] (1.001-1.035) Urine Protein (Negative) Urine Glucose (UA) (Negative) Urine Ketones (Negative) Urine Blood (Negative) Urine Nitrite (Negative) Urine Bilirubin (Negative) Urine Urobilinogen (<2.0) mg/dL Ur Leukocyte Esterase (Negative) Coronavirus (PCR) (Not Detectd) Influenza Type A RNA (Not Detectd) Influenza Type B (PCR) (Not Detectd) 12/07/21 12/07/21 12/07/21 Range/Units 18:16 20:43 20:43 WBC (3.8-10.6) k/uL RBC (3.80-5.40) m/uL Hgb (11.4-16.0) gm/dL Hct (34.0-46.0) % MCV (80.0-100.0) fL MCH (25.0-35.0) pg MCHC (31.0-37.0) g/dL RDW (11.5-15.5) % Plt Count (150-450) k/uL MPV Neutrophils % % Lymphocytes % % Monocytes % % Eosinophils % % Basophils % % Neutrophils # (1.3-7.7) k/uL Lymphocytes # (1.0-4.8) k/uL Monocytes # (0-1.0) k/uL Eosinophils # (0-0.7) k/uL Basophils # (0-0.2) k/uL PT (9.0-12.0) sec INR (<1.2) APTT (22.0-30.0) sec Sodium (137-145) mmol/L Potassium 4.3 (3.5-5.1) mmol/L Chloride (98-107) mmol/L Carbon Dioxide (22-30) mmol/L Anion Gap mmol/L BUN (7-17) mg/dL Creatinine (0.52-1.04) mg/dL Est GFR (CKD-EPI)AfAm (>60 ml/min/1.73 sqM) Est GFR (CKD-EPI)NonAf (>60 ml/min/1.73 sqM) Glucose (74-99) mg/dL Plasma Lactic Acid Narciso (0.7-2.0) mmol/L Calcium (8.4-10.2) mg/dL Total Bilirubin (0.2-1.3) mg/dL AST (14-36) U/L ALT (4-34) U/L Alkaline Phosphatase (38-126) U/L Troponin I 0.017 (0.000-0.034) ng/mL Total Protein (6.3-8.2) g/dL Albumin (3.5-5.0) g/dL Amylase (30-110) U/L Lipase (23-300) U/L Urine Color Yellow Urine Appearance Clear (Clear) Urine pH 6.0 (5.0-8.0) Ur Specific [place] 1.015 (1.001-1.035) Urine Protein Negative (Negative) Urine Glucose (UA) Negative (Negative) Urine Ketones Negative (Negative) Urine Blood Negative (Negative) Urine Nitrite Negative (Negative) Urine Bilirubin Negative (Negative) Urine Urobilinogen <2.0 (<2.0) mg/dL Ur Leukocyte Esterase Negative (Negative) Coronavirus (PCR) (Not Detectd) Influenza Type A RNA (Not Detectd) Influenza Type B (PCR) (Not Detectd) Disposition Clinical Impression: Common cold Disposition: HOME SELF-CARE Condition: Good Instructions (If sedation given, give patient instructions): Upper Respiratory Infection (ED), Acute Nausea and Vomiting (DC) Additional Instructions: Follow-up with primary care on Friday. Report back to ER with any worsening symptoms, including but not limited to fever, chills, cough productive of green or foul-smelling sputum, chest pain, shortness of breath, vomiting, blood in the stool or vomit. Is patient prescribed a controlled substance at d/c from ED?: No Referrals: Karlo Locke MD [Primary Care Provider] - 1-2 days Time of Disposition: 21:35
[2021-12-07 18:51] LABS: Potassium 5.9 mmol/L (3.5-5.1)
[2021-12-07 19:20] LABS: Partial Thromboplastin Time 25.1 sec (22.0-30.0); Prothrombin Time 10.9 sec (9.0-12.0)
--- NOTE | 2021-12-07 20:15 | CT ---
EXAMINATION TYPE: CT abdomen pelvis w con DATE OF EXAM: 12/07/2021 COMPARISON: 01/24/2011 HISTORY: Abd pain CT DLP: 1196.8 mGycm Automated exposure control for dose reduction was used. CONTRAST: Performed with IV Contrast, patient injected with 100ml mL of Isovue 300. Images obtained from the diaphragm to the floor the pelvis with IV contrast. Lung bases are clear of consolidation. No pleural effusion. Heart size is fairly normal. No pericardi al effusion. There is small hiatal hernia. Liver and spleen are intact. There is no pancreatic mass. Gallbladder appears absent. The bile ducts are not dilated. There is no adrenal mass. Kidneys show satisfactory contrast opacification. There is no hydronephrosi s. There are 2.5 cm cortical cysts posterior right kidney. No evidence of solid renal mass. Abdominal aorta is atheromatous. There is no retroperitoneal adenopathy. There are multiple sigmoid diverticula. No diverticulitis. Urinary bladder is almost empty. No inguin al hernia. No pelvic mass. No free fluid in the pelvis. There is hysterectomy. There is no mesenteric edema. No ascites or free air. No bowel obstruction. The lumbar vertebrae have normal alignment. There is degenerative disc space narrowing from L2 to S1 with spurring and scleros is. Facet joints are intact. There is no compression fracture. The bony pelvis is intact. The hip hiram nts are intact. IMPRESSION: Colonic diverticulosis without diverticulitis. No acute abnormality of the abdomen and pelvis. No adv erse change compared to the old exam. Mild hiatal hernia unchanged.
[2021-12-07] MEDS ORDERED: ONDANSETRON ODT 4 MG TAB PO STA ×2 (20:50→20:55)
[2021-12-07 20:53] LABS: Appearance,Urine Clear (Clear); Bilirubin,Urine Negative (Negative); Blood,Urine Negative (Negative); Color,Urine Yellow; Glucose,Urine (UA) Negative (Negative); Ketones,Urine Negative (Negative); Leukocyte Esterase,Urine Negative (Negative); Nitrite,Urine Negative (Negative); Protein,Urine Negative (Negative); Specific Gravity,Urine 1.015 (1.001-1.035); Urobilinogen,Urine <2.0 mg/dL (<2.0)
[2021-12-07 21:00] VITALS: BP 150/80; PULSE 95; RESP 19
== END 2021-12-07 22:38 | disposition home or self-care (01) ==
LOC: EC 14:54
DX: J00 Acute nasopharyngitis [common cold] (principal); I48.91 Unspecified atrial fibrillation; I25.10 Atherosclerotic heart disease of native coronary artery without angina pectoris; E11.9 Type 2 diabetes mellitus without complications; K21.9 Gastro-esophageal reflux disease without esophagitis; E78.5 Hyperlipidemia, unspecified; I10 Essential (primary) hypertension; M19.90 Unspecified osteoarthritis, unspecified site; E07.9 Disorder of thyroid, unspecified; F41.9 Anxiety disorder, unspecified; Z20.822 Contact with and (suspected) exposure to COVID-19; Z79.01 Long term (current) use of anticoagulants; Z79.82 Long term (current) use of aspirin; Z85.828 Personal history of other malignant neoplasm of skin; Z90.49 Acquired absence of other specified parts of digestive tract; Z90.710 Acquired absence of both cervix and uterus; Z95.0 Presence of cardiac pacemaker
CPT/HCPCS: 99284; 96360; 96361; 36415; 80053; 82150; 83605; 83690; 84132; 84484; 85025; 85610; 85730; 81003; 87502; 87635; 71046; 74177; Q9967

== ENCOUNTER 2021-12-16 19:46 | Observation (INO) | payer MEDICARE ==
--- NOTE | 2021-12-16 19:56 | ED ---
Chest Pain HPI - General Chief Complaint: Chest Pain Stated Complaint: Chest pain Time Seen by Provider: 12/16/21 19:54 Source: patient Mode of arrival: ambulatory Limitations: no limitations - History of Present Illness Initial Comments: Liliana is an 89yo F with extensive PMH. She presents to the ER today for evaluation of chest pain. Patient reports that approximately 2hrs prior to arrival the she just finished putting some laundry in the washing machine when she developed retrosternal chest pain. Patient states that she took 3 nitro, 1 Imdur, and her other nightly blood pressure medications over 2 hours with some relief in the pain decided to come to the ER for evaluation. - Related Data Home Medications Medication Instructions Recorded Confirmed Apixaban [Eliquis] 5 mg PO BID 04/19/17 12/16/21 glipiZIDE XL [Glucotrol XL] 2.5 mg PO DAILY 04/19/17 12/16/21 Levothyroxine Sodium [Synthroid] 75 mcg PO DAILY 05/26/17 12/16/21 Estradiol 0.05MG/24Hr Biwkptch 1 patch TRANSDERM SUWE 01/13/19 12/16/21 [Vivelle-Dot 0.05 MG] Atorvastatin [Lipitor] 20 mg PO HS 05/09/19 12/16/21 Isosorbide Mononitrate ER [Imdur] 90 mg PO HS 05/09/19 12/16/21 Spironolactone [Aldactone] 25 mg PO Q48H 05/09/19 12/16/21 ALPRAZolam [Xanax] 0.25 mg PO HS 09/17/19 12/16/21 hydrALAZINE HCL [Apresoline] 100 mg PO TID 09/17/19 12/16/21 Metoprolol Tartrate [Lopressor] 100 mg PO TID 02/27/20 12/16/21 cloNIDine HCL [Catapres] 0.1 mg PO TID PRN 06/16/20 12/16/21 Furosemide [Lasix] 20 mg PO Q48H 07/05/20 12/16/21 Nitroglycerin Sl Tabs [Nitrostat] 0.4 mg SL Q5M PRN 08/02/20 12/16/21 Cholecalciferol (Vitamin D3) 75 mcg PO DAILY@1200 01/01/21 12/16/21 [Vitamin D3 (3000 Iu)] cloNIDine HCL [Catapres] 0.2 mg PO TID 01/01/21 12/16/21 Cyanocobalamin (Vitamin B-12) 500 mcg PO DAILY@1400 07/14/21 12/16/21 [Vitamin B-12] Ascorbic Acid [Vitamin C] 1,000 mg PO DAILY@1400 12/01/21 12/16/21 Aspirin 81 mg PO DAILY@1200 12/01/21 12/16/21 Docusate Sodium [Dok] 100 mg PO DAILY@1200 12/01/21 12/16/21 Previous Rx's Medication Instructions Recorded Isosorbide Mononitrate ER [Imdur] 60 mg PO DAILY tab.er.24h 01/13/19 Allergies Allergy/AdvReac Type Severity Reaction Status Date / Time JORGITO Inhibitors Allergy Severe Swelling Verified 12/16/21 21:34 cortisone Allergy Severe Rash/Hives, Verified 12/16/21 21:34 high BP Calcium Channel Blocking AdvReac SORES IN Verified 12/16/21 21:34 Agent Dilt MOUTH cephalexin [From Keflex] AdvReac Nausea & Verified 12/16/21 21:35 Vomiting sitagliptin [From Januvia] AdvReac Rapid Verified 12/16/21 21:34 Heart Rate dust,trees Allergy Itching Uncoded 12/16/21 19:51 Review of Systems ROS Statement: Those systems with pertinent positive or pertinent negative responses have been documented in the HPI. ROS Other: All systems not noted in ROS Statement are negative. EKG Findings - EKG Comments: EKG Findings:: EKG was obtained at 1956 rate is 79 rhythm is ventricular paced appears to have an underlying A. fib, no acute ST elevations or depressions no evidence of ischemia or infarction. Past Medical History Past Medical History: Atrial Fibrillation, Coronary Artery Disease (CAD), Cancer, Chest Pain / Angina, Diabetes Mellitus, GERD/Reflux, Hyperlipidemia, Hypertension, Osteoarthritis (OA), Sleep Apnea/CPAP/BIPAP, Thyroid Disorder Additional Past Medical History / Comment(s): skin cancer, restless leg syndrome, varicose veins, IBS, History of Any Multi-Drug Resistant Organisms: None Reported Past Surgical History: Adenoidectomy, Appendectomy, Breast Surgery, Cholecystectomy, Heart Catheterization With Stent, Hysterectomy, Orthopedic Surgery, Pacemaker, Tonsillectomy Additional Past Surgical History / Comment(s): walt cataract, 3 stents, partial thyroidectomy, rt shoulder rotator cuff, walt breast biopsy, metal clip in rt breast Past Anesthesia/Blood Transfusion Reactions: No Reported Reaction Additional Past Anesthesia/Blood Transfusion Reaction / Comment(s): patient has never had a blood transfusion Date of Last Stent Placement:: 2014 Type of Cardiac Device: Permanent Pacemaker Device Placement Date:: 2015 Past Psychological History: Anxiety Smoking Status: Never smoker Past Alcohol Use History: Rare Past Drug Use History: None Reported - Past Family History Mother Additional Family Medical History / Comment(s): Mother at age 76 from massive stroke. Brother(s) Additional Family Medical History / Comment(s): The patient had a total of 3 b rothers. One brother from melanoma. One brother is with history of coronary artery disease status post CABG. One brother has from colon cancer with history of coronary artery disease. Patient does not have any sisters. Son(s) History Unknown: Yes (Healthy 3 sons) Additional Family Medical History / Comment(s): Patient has 3 sons and 1 daughter. One son has history of coronary artery disease, second son has history of AICD. Patient has 1 son and 1 daughter with no major medical problems. Father Additional Family Medical History / Comment(s): Father at age 59 from a myocardial infarction. General Exam - General Exam Comments Initial Comments: Physical Exam GENERAL: Patient is well-developed and well-nourished. Patient is nontoxic and well-hydrated and is in no distress. HENT: Normocephalic, Atraumatic EYES: PERRL, EOMI PULMONARY: Unlabored respirations CARDIOVASCULAR: Irregular ABDOMEN: Non-distended SKIN: No rashes or bruising : Deferred NEUROLOGIC: Alert and oriented Normal speech MUSCULOSKELETAL: Moving all extremities with no apparent injury PSYCHIATRIC: No SI/HI Limitations: no limitations Course Vital Signs 12/16/21 12/16/21 12/16/21 19:49 19:59 20:59 Temperature 98.1 F Pulse Rate 80 65 Pulse Rate [ 82 Chief Solution Architect ] Respiratory 18 18 Rate Blood Pressure 187/99 184/113 O2 Sat by Pulse 96 97 Oximetry 12/16/21 12/16/21 21:50 23:33 Temperature Pulse Rate 64 60 Pulse Rate [ Chief Solution Architect ] Respiratory 18 20 Rate Blood Pressure 178/93 150/90 O2 Sat by Pulse 96 98 Oximetry Chest Pain MDM - MDM Patient was seen and evaluated, history was obtained from the patient. Patient with hours of chest pain and hypertension Stoeckel of her hypertension meds and remains hypertensive upon arrival Chest x-ray was reviewed and is unremarkable Nitro paste was initiated for blood pressure management chest pain Patient presents the pain was given morphine she appeared much more comfortable Labs were relatively unremarkable initial troponin is negative Given patient's history and multiple risk factors I do feel she should be evaluated by cardiology Patient care was discussed with admitting physician Dr. Mccord who agreed with plan for admission, renal artery ultrasound to assess for secondary causes of hypertension, echo in the morning and evaluation by cardiology and nephrology Disposition Clinical Impression: Hypertensive emergency, Chest pain Disposition: ADMITTED IP TO THIS HOSP
[2021-12-16 20:21] LABS: Basophils # (A) 0.1 k/uL (0-0.2); Basophils % (A) 1 %; Eosinophils # (A) 0.3 k/uL (0-0.7); Eosinophils % (A) 3 %; HCT 46.3 % (34.0-46.0); HGB 14.4 gm/dL (11.4-16.0); Lymphocytes # (A) 1.5 k/uL (1.0-4.8); Lymphocytes % (A) 16 %; MCH 30.2 pg (25.0-35.0); MCV 97.5 fL (80.0-100.0); Mean Platelet Volume 7.9; Monocytes # (A) 0.9 k/uL (0-1.0); Monocytes % (A) 11 %; Neutrophils % (A) 67 %; Platelet Count 247 k/uL (150-450); RBC 4.75 m/uL (3.80-5.40); RDW 13.2 % (11.5-15.5)
--- NOTE | 2021-12-16 20:22 | XR ---
EXAMINATION TYPE: XR chest 2V DATE OF EXAM: 12/16/2021 COMPARISON: 12/07/2021 HISTORY: Chest pain TECHNIQUE: 3 views FINDINGS: There is no heart failure nor confluent pneumonic infiltrate. Heart is top normal in size. There is left axillary pacemaker. No pleural effusion. Bony thorax is intact. IMPRESSION: Mild cardiomegaly. No heart failure. No adverse change.
[2021-12-16 20:29] LABS: Albumin 3.9 g/dL (3.5-5.0); Calcium 9.7 mg/dL (8.4-10.2); Magnesium 1.9 mg/dL (1.6-2.3); Total Bilirubin 0.8 mg/dL (0.2-1.3); Total Protein 7.1 g/dL (6.3-8.2)
[2021-12-16 20:42] LABS: INR 0.9 (<1.2); Partial Thromboplastin Time 23.8 sec (22.0-30.0); Prothrombin Time 10.3 sec (9.0-12.0)
[2021-12-16 20:46] LABS: Potassium 4.4 mmol/L (3.5-5.1)
[2021-12-16] MEDS ORDERED: NITROGLYCERIN OINT 1 INCH/GM PACKET TOPICAL STA (20:48)
[2021-12-16] MEDS ORDERED: MORPHINE SULFATE 4 MG/ML SYRINGE IVP STA (21:26)
[2021-12-16] MEDS ORDERED: NALOXONE 0.4 MG/ML 1 ML VIAL IV PRN (23:04)
[2021-12-16] MEDS ORDERED: FUROSEMIDE 20 MG TAB PO SCH (23:15)
[2021-12-17] MEDS ORDERED: hydrALAZINE HCL 50 MG TAB PO STA (00:10)
[2021-12-17] MEDS ORDERED: hydrALAZINE HCL 50 MG TAB PO SCH (00:15)
[2021-12-17] MEDS ORDERED: cloNIDine HCL 0.2 MG TAB PO SCH (00:15)
[2021-12-17] MEDS: cloNIDine HCL 0.1 MG TAB PO SCH ×4 (00:28→21:16)
[2021-12-17] MEDS: LORazepam 0.5 MG TAB PO SCH ×2 (00:28→21:16)
[2021-12-17] MEDS: METOPROLOL TARTRATE 50 MG TAB PO SCH ×4 (00:29→21:16)
[2021-12-17] MEDS: LEVOTHYROXINE 75 MCG TAB PO SCH (06:06)
[2021-12-17 07:11] LABS: Glucose,Whole Blood 182 mg/dL (75-99)
--- NOTE | 2021-12-17 08:27 | US ---
EXAMINATION TYPE: US renal artery duplex complete DATE OF EXAM: 12/17/2021 COMPARISON: CT abdomen and pelvis December 07, 2021 CLINICAL HISTORY: drug resistent htn. MEASUREMENTS: RENAL SIZE: Rt Kidney: 11.9 x 5.4 x 6.2cm Lt Kidney: 11.0 x 5.9 x 6.6 cm RESISTANCE INDEX Right: 0.58 Left: 0.60 RA/AO RATIO (< 3.5 ) Right: 1.4 Left: 1.3 RA VELOCITY ( < 180 cm/s) Right: 92 Left: 85 No aneurysm in the visualized abdominal aorta. Renal velocity measurements and ratios within normal l imits. Renal size is symmetric and within normal limits. A few scattered simple thin-walled cysts thr oughout the right kidney incidentally noted. IMPRESSION: No ultrasound evidence for hemodynamically significant focal renal artery stenosis
[2021-12-17] MEDS: APIXABAN 5 MG TAB PO SCH ×2 (08:41→21:16)
[2021-12-17] MEDS: ISOSORBIDE MONONITRATE ER 60 MG TAB.ER.24H PO SCH (08:44)
[2021-12-17] MEDS: hydrALAZINE HCL 50 MG TAB PO SCH ×3 (08:44→21:16)
[2021-12-17] MEDS ORDERED: SPIRONOLACTONE 25 MG TAB PO SCH (09:00)
[2021-12-17] MEDS ORDERED: DOXAZOSIN 2 MG TAB PO SCH (09:00)
--- NOTE | 2021-12-17 09:03 | P.NPCON ---
History of Present Illness - Reason for Consult accelerated hypertension - History of Present Illness Reason for consultation: Hypertension History of present illness: Patient is a 89-year-old female seen in consultation for resistant hypertension. Patient presented to the hospital due to chest pain. 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 She denies pressure se nsation. She did take nitro. Patient states her blood pressure was also high and she was also short of breath. Blood pressure on admission was 187/99. Patient does admit to occasional syncopal episodes. Patient also states that she has sleepwalked before. She does admit to palpitations at times. Patient states her mother had a stroke but is not sure if it was a hemorrhagic stroke or not. Denies nausea vomiting or diarrhea. No fever or chills. Appetite is good. Does have edema in lower extremity. Vital signs: Stable. General: Awake and alert. No acute distress. HEENT: Head exam is unremarkable. LUNGS: Breath sounds decreased. HEART: Rate and Rhythm are regular. ABDOMEN: Soft, no distention. EXTREMITITES: 1+ edema. Past Medical History Past Medical History: Atrial Fibrillation, Coronary Artery Disease (CAD), Cancer, Chest Pain / Angina, Diabetes Mellitus, GERD/Reflux, Hyperlipidemia, Hypertension, Osteoarthritis (OA), Sleep Apnea/CPAP/BIPAP, Thyroid Disorder Additional Past Medical History / Comment(s): skin cancer, restless leg syndrome, varicose veins, IBS, History of Any Multi-Drug Resistant Organisms: None Reported Past Surgical History: Adenoidectomy, Appendectomy, Breast Surgery, Cholecystectomy, Heart Catheterization With Stent, Hysterectomy, Orthopedic Surgery, Pacemaker, Tonsillectomy Additional Past Surgical History / Comment(s): walt cataract, 3 stents, partial thyroidectomy, rt shoulder rotator cuff, walt breast biopsy, metal clip in rt breast Past Anesthesia/Blood Transfusion Reactions: No Reported Reaction Additional Past Anesthesia/Blood Transfusion Reaction / Comment(s): patient has never had a blood transfusion Date of Last Stent Placement:: 2014 Type of Cardiac Device: Permanent Pacemaker Device Placement Date:: 2015 Past Psychological History: Anxiety Smoking Status: Never smoker Past Alcohol Use History: Rare Additional Past Alcohol Use History / Comment(s): The patient was a smoker briefly as a kid. She drinks alcohol occasionally. Past Drug Use History: None Reported - Past Family History Mother Additional Family Medical History / Comment(s): Mother at age 76 from massive stroke. Brother(s) Additional Family Medical History / Comment(s): The patient had a total of 3 brothers. One brother from melanoma. One brother is with history of coronary artery disease status post CABG. One brother has from colon cancer with history of coronary artery disease. Patient does not have any sisters. Son(s) History Unknown: Yes (Healthy 3 sons) Additional Family Medical History / Comment(s): Patient has 3 sons and 1 daughter. One son has history of coronary artery disease, second son has history of AICD. Patient has 1 son and 1 daughter with no major medical problems. Father Additional Family Medical History / Comment(s): Father at age 59 from a myocardial infarction. Medications and Allergies Home Medications Medication Instructions Recorded Confirmed Type Apixaban [Eliquis] 5 mg PO BID 04/19/17 12/16/21 History glipiZIDE XL [Glucotrol XL] 2.5 mg PO DAILY 04/19/17 12/16/21 History Levothyroxine Sodium [Synthroid] 75 mcg PO DAILY 05/26/17 12/16/21 History Estradiol 0.05MG/24Hr Biwkptch 1 patch TRANSDERM SUWE 01/13/19 12/16/21 History [Vivelle-Dot 0.05 MG] Isosorbide Mononitrate ER [Imdur] 60 mg PO DAILY tab.er.24h 01/13/19 12/16/21 Rx Atorvastatin [Lipitor] 20 mg PO HS 05/09/19 12/16/21 History Isosorbide Mononitrate ER [Imdur] 90 mg PO HS 05/09/19 12/16/21 History Spironolactone [Aldactone] 25 mg PO Q48H 05/09/19 12/16/21 History ALPRAZolam [Xanax] 0.25 mg PO HS 09/17/19 12/16/21 History hydrALAZINE HCL [Apresoline] 100 mg PO TID 09/17/19 12/16/21 History Metoprolol Tartrate [Lopressor] 100 mg PO TID 02/27/20 12/16/21 History cloNIDine HCL [Catapres] 0.1 mg PO TID PRN 06/16/20 12/16/21 History Furosemide [Lasix] 20 mg PO Q48H 07/05/20 12/16/21 History Nitroglycerin Sl Tabs [Nitrostat] 0.4 mg SL Q5M PRN 08/02/20 12/16/21 History Cholecalciferol (Vitamin D3) 75 mcg PO DAILY@1200 01/01/21 12/16/21 History [Vitamin D3 (3000 Iu)] cloNIDine HCL [Catapres] 0.2 mg PO TID 01/01/21 12/16/21 History Cyanocobalamin (Vitamin B-12) 500 mcg PO DAILY@1400 07/14/21 12/16/21 History [Vitamin B-12] Ascorbic Acid [Vitamin C] 1,000 mg PO DAILY@1400 12/01/21 12/16/21 History Aspirin 81 mg PO DAILY@1200 12/01/21 12/16/21 History Docusate Sodium [Dok] 100 mg PO DAILY@1200 12/01/21 12/16/21 History Allergies Allergy/AdvReac Type Severity Reaction Status Date / Time JORGITO Inhibitors Allergy Severe Swelling Verified 12/16/21 21:34 cortisone Allergy Severe Rash/Hives, Verified 12/16/21 21:34 high BP Calcium Channel Blocking AdvReac SORES IN Verified 12/16/21 21:34 Agent Dilt MOUTH cephalexin [From Keflex] AdvReac Nausea & Verified 12/16/21 21:35 Vomiting sitagliptin [From Januvia] AdvReac Rapid Verified 12/16/21 21:34 Heart Rate dust,trees Allergy Itching Uncoded 12/16/21 19:51 Physical Exam Vitals: Vital Signs Temp Pulse Pulse Resp BP BP Pulse Ox 12/17/21 07:00 97.6 F 77 16 166/95 95 12/17/21 02:17 82 20 12/16/21 23:33 60 20 150/90 98 12/16/21 21:50 64 18 178/93 96 12/16/21 20:59 65 18 184/113 97 12/16/21 19:59 82 12/16/21 19:49 98.1 F 80 18 187/99 96 Intake and Output 12/16/21 12/17/21 12/17/21 22:59 06:59 14:59 Other: Voiding Method Toilet # Voids 2 Weight 83.915 kg 83.915 kg Results - Lab Results Most recent lab results Calcium 9.7 mg/dL (8.4-10.2) 12/16/21 20:09 Magnesium 1.9 mg/dL (1.6-2.3) 12/16/21 20:09 12/16/21 20:09 12/16/21 20:09 Assessment and Plan Plan: Assessment: 1. Accelerated hypertension. Improved from admission. No evidence of renal artery stenosis noted on renal duplex ultrasound. 2. Coronary artery disease status post cardiac stenting in the past. 3. A. fib on anticoagulation. 4. Volume overload. Plan: Home antihypertensives resumed. Change frequency of spironolactone and Lasix from every other day to daily. Follow-up echocardiogram. Check secondary workup. Check orthostatic vital signs. Allergic to ACEi/ARB. Thank you for the consultation. I will continue to follow the patient with you during her hospital stay.
--- NOTE | 2021-12-17 09:08 | P.CRDCN ---
History of Present Illness Consult date: 12/17/21 History of present illness: HISTORY OF PRESENT ILLNESS: This is a 89-year-old female with a past medical history significant for hypertension, hyperlipidemia, permanent atrial fibrillation, diabetes, sick sinus syndrome with permanent pacemaker implantation, and coronary artery disease with multivessel PCI.. Patient follows with a Dr. Simental out of [facility]. We have been asked to see the patient in consultation for chest pain and HTN. Patient examined at the bedside. Patient states she came to the hospital after having some chest discomfort at home. She denied radiation of the pain. Denied SOB. No nausea or vomiting. The patient also was found to have uncontrolled hypertensive. This morning, her blood pressure is 166/96. The patient states she has not been receiving her antihypertensive medications. She denies chest pain or pressure at the time of our examination. She states that she had her last cardiac cath a couple years ago and at that time there was no intervention performed. * EKG reveals paced rhythm * Chest xray mild cardiomegaly. No heart failure. No adverse change. * Laboratory data: WBC 9.0. Hemoglobin 14.4. Platelet count 247. Sodium 136. Potassium 4.4. BUN 23. Creatinine 0.70. Troponin negative 1. ProBNP 2600. * Current home cardiac medications include hydralazine 100 mg 3 times a day, Catapres 0.2 mg 3 times a day, Aldactone 25 mg every 48 hours, metoprolol tartrate 100 mg 3 times a day, Imdur 60 mg in the morning and 90 mg at night, Lasix 20 mg every 48 hours, aspirin 81 mg daily, Eliquis 5 mg twice a day and Lipitor 20 mg at night * Most recent echocardiogram obtained in December 2020 revealed ejection fraction 55- 60%, moderate MR, and mild TR REVIEW OF SYSTEMS: At the time of my exam: CONSTITUTIONAL: Denies fever or chills. HEENT: Denies blurred vision, vision changes, or eye pain. Denies hemoptysis CARDIOVASCULAR: Denies chest pain. Denies orthopnea. Denies PND. Denies palpitations RESPIRATORY: Denies shortness of breath. GASTROINTESTINAL: Denies abdominal pain. Denies nausea or vomiting. HEMATOLOGIC: Denies bleeding disorders. GENITOURINARY: Denies any blood in urine. SKIN: Denies pruitis. Denies rash. PHYSICAL EXAM: VITAL SIGNS: Reviewed. GENERAL: Well-developed in no acute distress. HEENT: Head is normocephalic. Pupils are equal, round. Sclerae anicteric. Mucous membranes of the mouth are moist. Neck supple. No JVD or thyromegaly LUNGS: Respirations even and unlabored. Lungs essentially clear to auscultation bilaterally. HEART: Irregular rate and rhythm. S1 and S2 heard. ABDOMEN: Soft. Nondistended. Nontender. EXTREMITIES: Normal range of motion. No clubbing or cyanosis. Peripheral pulses intact. Trace lower extremity edema NEUROLOGIC: Awake and alert. Oriented x 3. ASSESSMENT: Chest pain Hypertension, uncontrolled Permanent atrial fibrillation Diabetes Sick sinus syndrome with previous pacemaker implantation Coronary artery disease with multivessel PCI PLAN: Suspect patients chest discomfort is secondary to her uncontrolled hypertension Patients catapres has been increased from her home dose Continue to monitor blood pressure. No additional changes at this time. Obtain 2D echo to assess cardiac structure and function Trend troponins Further recommendations pending patient course Nurse practitioner note has been reviewed by physician. Signing provider agrees with the documented findings, assessment, and plan of care. Past Medical History Past Medical History: Atrial Fibrillation, Coronary Artery Disease (CAD), Cancer, Chest Pain / Angina, Diabetes Mellitus, GERD/Reflux, Hyperlipidemia, Hypertension, Osteoarthritis (OA), Sleep Apnea/CPAP/BIPAP, Thyroid Disorder Additional Past Medical History / Comment(s): skin cancer, restless leg synd vamsi, varicose veins, IBS, History of Any Multi-Drug Resistant Organisms: None Reported Past Surgical History: Adenoidectomy, Appendectomy, Breast Surgery, Cholecystectomy, Heart Catheterization With Stent, Hysterectomy, Orthopedic Surgery, Pacemaker, Tonsillectomy Additional Past Surgical History / Comment(s): walt cataract, 3 stents, partial thyroidectomy, rt shoulder rotator cuff, walt breast biopsy, metal clip in rt gwen ast Past Anesthesia/Blood Transfusion Reactions: No Reported Reaction Additional Past Anesthesia/Blood Transfusion Reaction / Comment(s): patient has never had a blood transfusion Date of Last Stent Placement:: 2014 Type of Cardiac Device: Permanent Pacemaker Device Placement Date:: 2015 Past Psychological History: Anxiety Smoking Status: Never smoker Past Alcohol Use History: Rare Additional Past Alcohol Use History / Comment(s): The patient was a smoker briefly as a kid. She drinks alcohol occasionally. Past Drug Use History: None Reported - Past Family History Mother Additional Family Medical History / Comment(s): Mother at age 76 from massive stroke. Brother(s) Additional Family Medical History / Comment(s): The patient had a total of 3 brothers. One brother from melanoma. One brother is with history of coronary artery disease status post CABG. One brother has from colon cancer with history of coronary artery disease. Patient does not have any sisters. Son(s) History Unknown: Yes (Healthy 3 sons) Additional Family Medical History / Comment(s): Patient has 3 sons and 1 daughter. One son has history of coronary artery disease, second son has history of AICD. Patient has 1 son and 1 daughter with no major medical problems. Father Additional Family Medical History / Comment(s): Father at age 59 from a myocardial infarction. Medications and Allergies Home Medications Medication Instructions Recorded Confirmed Type Apixaban [Eliquis] 5 mg PO BID 04/19/17 12/16/21 History glipiZIDE XL [Glucotrol XL] 2.5 mg PO DAILY 04/19/17 12/16/21 History Levothyroxine Sodium [Synthroid] 75 mcg PO DAILY 05/26/17 12/16/21 History Estradiol 0.05MG/24Hr Biwkptch 1 patch TRANSDERM SUWE 01/13/19 12/16/21 History [Vivelle-Dot 0.05 MG] Isosorbide Mononitrate ER [Imdur] 60 mg PO DAILY tab.er.24h 01/13/19 12/16/21 Rx Atorvastatin [Lipitor] 20 mg PO HS 05/09/19 12/16/21 History Isosorbide Mononitrate ER [Imdur] 90 mg PO HS 05/09/19 12/16/21 History Spironolactone [Aldactone] 25 mg PO Q48H 05/09/19 12/16/21 History ALPRAZolam [Xanax] 0.25 mg PO HS 09/17/19 12/16/21 History hydrALAZINE HCL [Apresoline] 100 mg PO TID 09/17/19 12/16/21 History Metoprolol Tartrate [Lopressor] 100 mg PO TID 02/27/20 12/16/21 History cloNIDine HCL [Catapres] 0.1 mg PO TID PRN 06/16/20 12/16/21 History Furosemide [Lasix] 20 mg PO Q48H 07/05/20 12/16/21 History Nitroglycerin Sl Tabs [Nitrostat] 0.4 mg SL Q5M PRN 08/02/20 12/16/21 History Cholecalciferol (Vitamin D3) 75 mcg PO DAILY@1200 01/01/21 12/16/21 History [Vitamin D3 (3000 Iu)] cloNIDine HCL [Catapres] 0.2 mg PO TID 01/01/21 12/16/21 History Cyanocobalamin (Vitamin B-12) 500 mcg PO DAILY@1400 07/14/21 12/16/21 History [Vitamin B-12] Ascorbic Acid [Vitamin C] 1,000 mg PO DAILY@1400 12/01/21 12/16/21 History Aspirin 81 mg PO DAILY@1200 12/01/21 12/16/21 History Docusate Sodium [Dok] 100 mg PO DAILY@1200 12/01/21 12/16/21 History Allergies Allergy/AdvReac Type Severity Reaction Status Date / Time JORGITO Inhibitors Allergy Severe Swelling Verified 12/16/21 21:34 cortisone Allergy Severe Rash/Hives, Verified 12/16/21 21:34 high BP Calcium Channel Blocking AdvReac SORES IN Verified 12/16/21 21:34 Agent Dilt MOUTH cephalexin [From Keflex] AdvReac Nausea & Verified 12/16/21 21:35 Vomiting sitagliptin [From Januvia] AdvReac Rapid Verified 12/16/21 21:34 Heart Rate dust,trees Allergy Itching Uncoded 12/16/21 19:51 Physical Exam Vitals: Vital Signs Temp Pulse Pulse Resp BP BP Pulse Ox 12/17/21 07:00 97.6 F 77 16 166/95 95 12/17/21 02:17 82 20 12/16/21 23:33 60 20 150/90 98 12/16/21 21:50 64 18 178/93 96 12/16/21 20:59 65 18 184/113 97 12/16/21 19:59 82 12/16/21 19:49 98.1 F 80 18 187/99 96 Intake and Output 12/16/21 12/17/21 12/17/21 22:59 06:59 14:59 Other: Voiding Method Toilet # Voids 2 Weight 83.915 kg 83.915 kg Results 12/16/21 20:09 12/16/21 20:09 Cardiac Enzymes 12/16/21 12/16/21 Range/Units 20:09 20:09 AST 52 H (14-36) U/L Troponin I <0.012 (0.000-0.034) ng/mL Coagulation 12/16/21 Range/Units 20:09 PT 10.3 (9.0-12.0) sec APTT 23.8 (22.0-30.0) sec CBC 12/16/21 Range/Units 20:09 WBC 9.0 (3.8-10.6) k/uL RBC 4.75 (3.80-5.40) m/uL Hgb 14.4 (11.4-16.0) gm/dL Hct 46.3 H (34.0-46.0) % Plt Count 247 (150-450) k/uL Comprehensive Metabolic Panel 12/16/21 Range/Units 20:09 Sodium 136 L (137-145) mmol/L Potassium 4.4 (3.5-5.1) mmol/L Chloride 101 (98-107) mmol/L Carbon Dioxide 29 (22-30) mmol/L BUN 23 H (7-17) mg/dL Creatinine 0.70 (0.52-1.04) mg/dL Glucose 194 H (74-99) mg/dL Calcium 9.7 (8.4-10.2) mg/dL AST 52 H (14-36) U/L ALT 38 H (4-34) U/L Alkaline Phosphatase 88 (38-126) U/L Total Protein 7.1 (6.3-8.2) g/dL Albumin 3.9 (3.5-5.0) g/dL Current Medications Generic Name Dose Route Start Last Admin Trade Name Freq PRN Reason Stop Dose Admin Alprazolam 0.25 mg 12/17/21 21:00 Alprazolam 0.25 Mg Tab PO HS DULCE Apixaban 5 mg 12/17/21 09:00 12/17/21 08:41 Apixaban 5 Mg Tab PO 5 mg BID [facility] Administration Protocol Aspirin 81 mg 12/17/21 12:00 Aspirin 81 Mg PO DAILY@1200 DULCE Atorvastatin Calcium 20 mg 12/17/21 21:00 Atorvastatin 20 Mg Tab PO HS DULCE Clonidine 0.3 mg 12/17/21 00:15 12/17/21 08:43 Clonidine Hcl 0.1 Mg Tab PO 0.3 mg TID DULCE Administration Furosemide 20 mg 12/16/21 23:15 12/16/21 23:59 Furosemide 20 Mg Tab PO Not Given Q2D@0900 DULCE Glipizide 2.5 mg 12/17/21 09:00 12/17/21 08:43 Glipizide 2.5 Mg Tab PO 2.5 mg DAILY [facility] Administration Hydralazine HCl 100 mg 12/17/21 09:00 12/17/21 08:44 Hydralazine Hcl 50 Mg Tab PO 100 mg TID DULCE Administration Isosorbide Mononitrate 60 mg 12/17/21 09:00 12/17/21 08:44 Isosorbide Mononitrate Er 60 Mg Tab.Er.24h PO 60 mg DAILY DULCE Administration Levothyroxine Sodium 75 mcg 12/17/21 06:30 12/17/21 06:06 Levothyroxine 75 Mcg Tab PO 75 mcg DAILY@0630 DULCE Administration Lorazepam 0.5 mg 12/17/21 00:15 12/17/21 00:28 Lorazepam 0.5 Mg Tab PO 0.5 mg HS DULCE Administration Metoprolol Tartrate 100 mg 12/17/21 00:15 12/17/21 08:41 Metoprolol Tartrate 50 Mg Tab PO 100 mg TID DULCE Administration Naloxone HCl 0.2 mg 12/16/21 23:04 Naloxone 0.4 Mg/Ml 1 Ml Vial IV Q2M PRN Opioid Reversal Spironolactone 25 mg 12/17/21 09:00 12/17/21 08:41 Spironolactone 25 Mg Tab PO 25 mg Q48H DULCE Administration Intake and Output 12/16/21 12/17/21 12/17/21 22:59 06:59 14:59 Other: Voiding Method Toilet # Voids 2 Weight 83.915 kg 83.915 kg 12/16/21 20:09 12/16/21 20:09
[2021-12-17] MEDS: FUROSEMIDE 20 MG TAB PO SCH (09:32)
--- NOTE | 2021-12-17 09:39 | P.HPIM ---
History of Present Illness H&P Date: 12/17/21 HISTORY OF PRESENT ILLNESS This is an 89-year-old female patient of Dr. Locke with past medical history of CAD post angina stress test and heart catheter with stent placement in the past. History of arrhythmia post pacemaker, history of recurrent and urgent hypertension on multi-medication. Multi-admission to the hospital with noncontrolled hypertension require multi-medication and has been seen by nephrology and cardiology. Baseline patient seen cardiology at [facility] Dr. Simental last seen couple months ago. Patient complains of midsternal chest pain while she was doing wash walked into the living room and felt she was huffing and panting and developed midsternal chest pain. She took 3 nitroglycerin, Catapres and aspirin and the pain went away briefly and then returned. Patient came into [facility] emergency center for ev aluation. She states she was given nitro paste without improvement followed by EMS which did improve her pain. Patient has been placed on the observation unit, seen by cardiology and nephrology. Nephrology is changed Aldactone and Lasix to daily dosing versus every other day, echocardiogram ordered, repeat blood work. Patient was found to be afebrile, heart rate 80, blood pressure 187/99, pulse ox 96% on room air. This morning blood pressure is 166/95. EKG is paced rhythm. CBC is unremarkable. Sodium 136 otherwise electrolytes are normal. BUN 23 creatinine 0.7. Blood sugar 194. AST 52, ALT 38, alkaline phosphatase 88. Troponin negative. ProBNP 2600. Chest x-ray reveals mild cardiomegaly. No heart failure. No adverse change. Renal artery ultrasound revealed no evidence of hemodynamically significant renal artery stenosis. REVIEW OF SYSTEMS CONSTITUTIONAL: Well-developed no acute respiratory distress. denies fever or chills EYES: No icterus sclerae, no conjunctivitis. EARS, NOSE, MOUTH, THROAT, and FACE: No sore throat, lymphadenopathy, carotid b ruits or deformity. numbness to the right side of her face. RESPIRATORY: Reports SOB no cough or wheezes. CARDIOVASCULAR: Reports chest pain, no palpitations, no PND, no Orthopnea, no angina. GASTROINTESTINAL: No Abd pain, Nausea or vomiting, no Diarrhea no constipation, No GI Bleed, no distention or masses. GENITOURINARY: Negative for Hematuria or UTI, no kidney stones. INTEGUMENT/BREAST: Negative for any muscular injury with mild osteoarthritis.. HEMATOLOGIC/LYMPHATIC: Negative for bleed or purpura. MUSCULOSKELTAL: Negative for Myalgia or arthralgia. NEURLOGICAL: No LOC, Sz or syncope, no blurred vision, no dizziness or abnormality, no weakness BEHAVIORAL/PSYCH: Negative. ENDOCRINE: Negative. PHYSICAL EXAMINATION General Appearance: Alert, cooperative, no distress, appears stated age of 89 years of age, resting on the edge of the bed and appears to be comfortable . Neck HEENT: Supple, no lymphadenopathy, no thyroid enlargement, no carotid bruits. numbness to the right side of her face and lip with no deficit. Lungs: Clear to auscultation without crackles or wheezes no rhonchi, no deformity. Chest Wall: Chest wall normal expansion with deep inspiration no tenderness and no deformity was found on exam, no costochondral pain or discomfort. Heart: Regular rate and rhythm, S1, S2 normal, no murmur, rub or gallop. Back: Symmetric, no curvature, ROM normal, no CVA tenderness. Abdomen: Soft, non-tender, bowel sounds active all four quadrants, no masses, no organomegaly. Extremities: Extremities normal, atraumatic, no cyanosis or edema. Pulses: 2+ and symmetric. Skin: Skin color, texture, tugor normal, no rashes or lesions. Neurologic: Alert oriented x3 cranial nerves II through XII intact, no motor deficit, no abnormal balance or gait. ASSESSMENT AND PLAN 1. Chest pain with negative troponin. Cardiology consult appreciated, repeat troponins, echocardiogram, continue aspirin 81 mg daily, Lipitor 20 mg daily, Lopressor 100 mg 3 times daily, Imdur 60 mg daily. 2. Uncontrolled hypertension. Consult with cardiology and nephrology appreciated. Continue clonidine 0.3 mg 3 times daily, Lasix 20 mg daily, hydralazine 100 mg 3 times daily, Lopressor 100 mg 3 times daily, Aldactone 25 mg daily. 3. Hypertension, hypertensive cardiovascular disease. Continue as above 4. History of coronary artery disease. Continue aspirin 81 mg daily, Lipitor 20 mg at bedtime, Lopressor 100 mg 3 times daily, Imdur 60 mg daily. 5. Permanent atrial fibrillation. Continue eliquis 5 mg twice daily and Lopressor. 6. Sick sinus syndrome status post pacemaker implantation. 7. Chronic diastolic heart failure. Continue Lopressor, Lasix, Aldactone. 8. Diabetes mellitus type 2. Continue glipizide 2.5 mg with breakfast and NovoLog scale before meals and at bedtime. 9. Hypothyroidism. Continue levothyroxine 75 g daily. 10. Chronic diabetic neuropathy. 11. Gastroesophageal reflux disease and GI prophylaxis. Continue Pepcid 20 mg daily as needed. 12. DVT prophylaxis. Eliquis. Patient will be admitted to the hospital for a minimum of 2 night stay. DISCHARGE PLAN Return home Impression and plan of care have been directed as dictated by the signing physician. Tereza Arnett nurse practitioner acting as scribe for signing physician. Past Medical History Past Medical History: Atrial Fibrillation, Coronary Artery Disease (CAD), Canc er, Chest Pain / Angina, Diabetes Mellitus, GERD/Reflux, Hyperlipidemia, Hypertension, Osteoarthritis (OA), Sleep Apnea/CPAP/BIPAP, Thyroid Disorder Additional Past Medical History / Comment(s): skin cancer, restless leg syndrome, varicose veins, IBS, History of Any Multi-Drug Resistant Organisms: None Reported Past Surgical History: Adenoidectomy, Appendectomy, Breast Surgery, Cholecystectomy, Heart Catheterization With Stent, Hysterectomy, Orthopedic Surgery, Pacemaker, Tonsillectomy Additional Past Surgical History / Comment(s): walt cataract, 3 stents, partial thyroidectomy, rt shoulder rotator cuff, walt breast biopsy, metal clip in rt breast Past Anesthesia/Blood Transfusion Reactions: No Reported Reaction Additional Past Anesthesia/Blood Transfusion Reaction / Comment(s): patient has never had a blood transfusion Date of Last Stent Placement:: 2014 Type of Cardiac Device: Permanent Pacemaker Device Placement Date:: 2015 Past Psychological History: Anxiety Smoking Status: Never smoker Past Alcohol Use History: Rare Additional Past Alcohol Use History / Comment(s): The patient was a smoker briefly as a kid. She drinks alcohol occasionally. Past Drug Use History: None Reported - Past Family History Mother Additional Family Medical History / Comment(s): Mother at age 76 from massive stroke. Brother(s) Additional Family Medical History / Comment(s): The patient had a total of 3 brothers. One brother from melanoma. One brother is with history of coronary artery disease status post CABG. One brother has from colon cancer with history of coronary artery disease. Patient does not have any sisters. Son(s) History Unknown: Yes (Healthy 3 sons) Additional Family Medical History / Comment(s): Patient has 3 sons and 1 daughter. One son has history of coronary artery disease, second son has history of AICD. Patient has 1 son and 1 daughter with no major medical problems. Father Additional Family Medical History / Comment(s): Father at age 59 from a myocardial infarction. Medications and Allergies Home Medications Medication Instructions Recorded Confirmed Type Apixaban [Eliquis] 5 mg PO BID 04/19/17 12/16/21 History glipiZIDE XL [Glucotrol XL] 2.5 mg PO DAILY 04/19/17 12/16/21 History Levothyroxine Sodium [Synthroid] 75 mcg PO DAILY 05/26/17 12/16/21 History Estradiol 0.05MG/24Hr Biwkptch 1 patch TRANSDERM SUWE 01/13/19 12/16/21 History [Vivelle-Dot 0.05 MG] Isosorbide Mononitrate ER [Imdur] 60 mg PO DAILY tab.er.24h 01/13/19 12/16/21 Rx Atorvastatin [Lipitor] 20 mg PO HS 05/09/19 12/16/21 History Isosorbide Mononitrate ER [Imdur] 90 mg PO HS 05/09/19 12/16/21 History Spironolactone [Aldactone] 25 mg PO Q48H 05/09/19 12/16/21 History ALPRAZolam [Xanax] 0.25 mg PO HS 09/17/19 12/16/21 History hydrALAZINE HCL [Apresoline] 100 mg PO TID 09/17/19 12/16/21 History Metoprolol Tartrate [Lopressor] 100 mg PO TID 02/27/20 12/16/21 History cloNIDine HCL [Catapres] 0.1 mg PO TID PRN 06/16/20 12/16/21 History Furosemide [Lasix] 20 mg PO Q48H 07/05/20 12/16/21 History Nitroglycerin Sl Tabs [Nitrostat] 0.4 mg SL Q5M PRN 08/02/20 12/16/21 History Cholecalciferol (Vitamin D3) 75 mcg PO DAILY@1200 01/01/21 12/16/21 History [Vitamin D3 (3000 Iu)] cloNIDine HCL [Catapres] 0.2 mg PO TID 01/01/21 12/16/21 History Cyanocobalamin (Vitamin B-12) 500 mcg PO DAILY@1400 07/14/21 12/16/21 History [Vitamin B-12] Ascorbic Acid [Vitamin C] 1,000 mg PO DAILY@1400 12/01/21 12/16/21 History Aspirin 81 mg PO DAILY@1200 12/01/21 12/16/21 History Docusate Sodium [Dok] 100 mg PO DAILY@1200 12/01/21 12/16/21 History Allergies Allergy/AdvReac Type Severity Reaction Status Date / Time JORGITO Inhibitors Allergy Severe Swelling Verified 12/16/21 21:34 cortisone Allergy Severe Rash/Hives, Verified 12/16/21 21:34 high BP Calcium Channel Blocking AdvReac SORES IN Verified 12/16/21 21:34 Agent Dilt MOUTH cephalexin [From Keflex] AdvReac Nausea & Verified 12/16/21 21:35 Vomiting sitagliptin [From Januvia] AdvReac Rapid Verified 12/16/21 21:34 Heart Rate dust,trees Allergy Itching Uncoded 12/16/21 19:51 Physical Exam Vitals: Vital Signs Temp Pulse Pulse Resp BP BP Pulse Ox 12/17/21 07:00 97.6 F 77 16 166/95 95 12/17/21 02:17 82 20 12/16/21 23:33 60 20 150/90 98 12/16/21 21:50 64 18 178/93 96 12/16/21 20:59 65 18 184/113 97 12/16/21 19:59 82 12/16/21 19:49 98.1 F 80 18 187/99 96 Intake and Output 12/16/21 12/17/21 12/17/21 22:59 06:59 14:59 Other: Voiding Method Toilet # Voids 2 Weight 83.915 kg 83.915 kg Results CBC & Chem 7: 12/16/21 20:09 12/16/21 20:09 Labs: Abnormal Lab Results - Last 24 Hours (Table) 12/16/21 12/16/21 12/17/21 Range/Units 20:09 20:09 07:10 Hct 46.3 H (34.0-46.0) % Sodium 136 L (137-145) mmol/L BUN 23 H (7-17) mg/dL Glucose 194 H (74-99) mg/dL POC Glucose (mg/dL) 182 H (75-99) mg/dL AST 52 H (14-36) U/L ALT 38 H (4-34) U/L Thrombosis Risk Factor Assmnt - Choose All That Apply Each Factor Represents 1 point: Obesity (BMI >25) Other Risk Factors: No Each Risk Factor Represents 3 Points: Age 75 years or older Other congenital or acquired thrombophilia - If yes, enter type in comment: No Thrombosis Risk Factor Assessment Total Risk Factor Score: 4 Thrombosis Risk Factor Assessment Level: Moderate Risk
[2021-12-17] MEDS ORDERED: ASPIRIN 81 MG PO SCH (12:00)
[2021-12-17] MEDS ORDERED: DOCUSATE 100 MG CAP PO SCH (12:00)
--- NOTE | 2021-12-17 12:07 | CA ---
Transthoracic Echo Report Name: Liliana Jennings Age: 89 Gender: F : 1930 Exam Date: 12/17/2021 09:58 Exam Location: [facility] Ht (in): 65 Wt (lb): 185 Ordering Physician: Margarita Vera Attending/Referring Phys: [id number], Chuy Inspector Aide Kayce Mcclendon RDCS Procedure CPT: Indications: LV function Cardiac Hx: Hx of STENTING,KS, PACEMAKER,CAD HTN, AND CHOL. Technical Quality: Good Contrast 1: Total Dose (mL): Contrast 2: Total Dose (mL): MEASUREMENTS (Male / Female) Normal Values 2D ECHO LV Diastolic Diameter PLAX 3.1 cm 4.2 - 5.9 / 3.9 - 5.3 cm LV Systolic Diameter PLAX 1.2 cm IVS Diastolic Thickness 2.0 cm 0.6 - 1.0 / 0.6 - 0.9 cm LVPW Diastolic Thickness 1.7 cm 0.6 - 1.0 / 0.6 - 0.9 cm LV Relative Wall Thickness 1.2 RV Internal Dim ED PLAX 2.6 cm M-MODE Aortic Root Diameter MM 3.0 cm LA Systolic Diameter MM 3.9 cm LA Ao Ratio MM 1.3 AV Cusp Separation MM 1.6 cm DOPPLER AV Peak Velocity 151.7 cm/s AV Peak Gradient 9.2 mmHg MV Area PHT 3.4 cm??? MR Peak Velocity 237.1 cm/s MR Peak Gradient 22.5 mmHg Mitral E Point Velocity 110.2 cm/s Mitral A Point Velocity 33.1 cm/s Mitral E to A Ratio 3.3 MV Deceleration Time 224.2 ms TR Peak Velocity 160.6 cm/s TR Peak Gradient 10.3 mmHg Right Ventricular Systolic Press 24.3 mmHg FINDINGS Left Ventricle Severely increased septal wall thickness. Severely increased posterior wall thickness. Left ventricular ejection fraction is estimated at 55-60 %. Right Ventricle The right ventricle is normal in size and function. Right Atrium The right atrium is normal in size. Left Atrium The left atrium is normal in size. Mitral Valve Structurally normal mitral valve without significant stenosis or prolapse. There is a trace of mitral regurgitation. Aortic Valve Structurally normal aortic valve without significant sclerosis or stenosis. There is no aortic regurgitation. Tricuspid Valve Structurally normal tricuspid valve without significant stenosis. Pulmonary artery systolic pressure is normal. Trace tricuspid regurgitation. Pulmonic Valve Structurally normal pulmonic valve without significant stenosis. There is no pulmonic regurgitation. Pericardium Normal pericardium without effusion. Aorta Normal aortic root dimension. CONCLUSIONS Left ventricular hypertrophy with normal LV systolic function Trace mitral regurgitation Previewed by: Dr. Shivam Dai MD (Electronically Signed) Final Date: 17 Dec 2021 12:06
[2021-12-17 12:14] LABS: Glucose,Whole Blood 241 mg/dL (75-99)
[2021-12-17] MEDS: INSULIN ASPART (NovoLOG) 100 UNIT/ML VIAL SQ SCH ×3 (13:00→21:15)
[2021-12-17 17:28] LABS: Glucose,Whole Blood 106 mg/dL (75-99)
[2021-12-17 20:56] LABS: Glucose,Whole Blood 156 mg/dL (75-99)
[2021-12-17] MEDS ORDERED: ATORVASTATIN 20 MG TAB PO SCH (21:00)
[2021-12-17] MEDS ORDERED: ALPRAZolam 0.25 MG TAB PO SCH (21:00)
[2021-12-17] MEDS ORDERED: ISOSORBIDE MONONITRATE ER 30 MG TAB.ER.24H PO SCH (22:30)
[2021-12-18 04:57] VITALS: TEMP 97.8
[2021-12-18] MEDS: LEVOTHYROXINE 75 MCG TAB PO SCH (05:47)
[2021-12-18 07:26] VITALS: RESP 18
[2021-12-18 07:32] LABS: Glucose,Whole Blood 185 mg/dL (75-99)
[2021-12-18 07:37] VITALS: BP 108/65; PULSE 55
--- NOTE | 2021-12-18 08:20 | P.DS ---
Providers Date of admission: 12/16/21 23:04 Expected date of discharge: 12/18/21 Attending physician: Jasmine Mccord Consults: 12/16/21 23:08 Consult Physician Urgent Consulting Provider: [facility] Consult Reason/Comments: chest pain, htn Do you want consulting provider notified?: Yes Consult Physician Urgent Consulting Provider: Edwin Ramirez Consult Reason/Comments: multidrug resistent htn Do you want consulting provider notified?: Yes Primary care physician: Karlo Chucky [facility] Course: HISTORY OF PRESENT ILLNESS This is an 89-year-old female patient of Dr. Locke with past medical history of CAD post angina stress test and heart catheter with stent placement in the past. History of arrhythmia post pacemaker, history of recurrent and urgent hypertension on multi-medication. Multi-admission to the hospital with noncontrolled hypertension require multi-medication and has been seen by nephrology and cardiology. Baseline patient seen cardiology at [facility] Dr. Simental last seen couple months ago. Patient complains of midsternal chest pain while she was doing wash walked into the living room and felt she was huffing and panting and developed midsternal chest pain. She took 3 nitroglycerin, Catapres and aspirin and the pain went away briefly and then returned. Patient came into [facility] emergency center for evaluation. She states she was given nitro paste without improvement followed by EMS which did improve her pain. Patient has been placed on the observation unit, seen by cardiology and nephrology. Nephrology is changed Aldactone and Lasix to daily dosing versus every other day, echocardiogram ordered, repeat blood work. Patient was found to be afebrile, heart rate 80, blood pressure 187/99, pulse ox 96% on room air. This morning blood pressure is 166/95. EKG is paced rhythm. CBC is unremarkable. Sodium 136 otherwise electrolytes are normal. BUN 23 creatinine 0.7. Blood sugar 194. AST 52, ALT 38, alkaline phosphatase 88. Troponin negative. ProBNP 2600. Chest x-ray reveals mild cardiomegaly. No heart failure. No adverse change. Renal artery ultrasound revealed no evidence of hemodynamically significant renal artery stenosis. 12/18: Patient has been seen and followed by cardiology with plan to continue current medications and patient was cleared for discharge home. Patient was seen by nephrology for accelerated hypertension with recommendations to continue current antihypertensives. Patient follow-up outpatient in one week after discharge. Echocardiogram reveals left ventricular hypertrophy with normal LV systolic function, trace mitral regurgitation. Patient will be discharged home today in stable condition. DISCHARGE DIAGNOSES 1. Chest pain with negative troponin. Acute coronary syndrome has been ruled out. 2. Uncontrolled hypertension. 3. Hypertension, hypertensive cardiovascular disease. 4. History of coronary artery disease. 5. Permanent atrial fibrillation. 6. Sick sinus syndrome status post pacemaker implantation. 7. Chronic diastolic heart failure. 8. Diabetes mellitus type 2. 9. Hypothyroidism. 10. Chronic diabetic neuropathy. 11. Gastroesophageal reflux disease DISCHARGE PLAN Return home Greater than 35 minutes was utilized and coordinating patient's discharge. Impression and plan of care have been directed as dictated by the signing physician. Tereza Arnett nurse practitioner acting as scribe for signing physician. Patient Condition at Discharge: Good Plan - Discharge Summary Discharge Rx Participant: No New Discharge Prescriptions: New cloNIDine HCL [Catapres] 0.3 mg PO TID #90 tab Continue glipiZIDE XL [Glucotrol XL] 2.5 mg PO DAILY Apixaban [Eliquis] 5 mg PO BID Levothyroxine Sodium [Synthroid] 75 mcg PO DAILY Estradiol 0.05MG/24Hr Biwkptch [Vivelle-Dot 0.05 MG] 1 patch TRANSDERM SUWE Isosorbide Mononitrate ER [Imdur] 60 mg PO DAILY tab.er.24h Spironolactone [Aldactone] 25 mg PO Q48H Atorvastatin [Lipitor] 20 mg PO HS Isosorbide Mononitrate ER [Imdur] 90 mg PO HS hydrALAZINE HCL [Apresoline] 100 mg PO TID ALPRAZolam [Xanax] 0.25 mg PO HS Metoprolol Tartrate [Lopressor] 100 mg PO TID cloNIDine HCL [Catapres] 0.1 mg PO TID PRN PRN Reason: BP OVER 150 Furosemide [Lasix] 20 mg PO Q48H Nitroglycerin Sl Tabs [Nitrostat] 0.4 mg SL Q5M PRN PRN Reason: Chest Pain Cholecalciferol (Vitamin D3) [Vitamin D3 (3000 Iu)] 75 mcg PO DAILY@1200 Cyanocobalamin (Vitamin B-12) [Vitamin B-12] 500 mcg PO DAILY@1400 Ascorbic Acid [Vitamin C] 1,000 mg PO DAILY@1400 Docusate Sodium [Dok] 100 mg PO DAILY@1200 Aspirin 81 mg PO DAILY@1200 Discontinued cloNIDine HCL [Catapres] 0.2 mg PO TID Discharge Medication List Apixaban [Eliquis] 5 mg PO BID 04/19/17 [History] glipiZIDE XL [Glucotrol XL] 2.5 mg PO DAILY 04/19/17 [History] Levothyroxine Sodium [Synthroid] 75 mcg PO DAILY 05/26/17 [History] Estradiol 0.05MG/24Hr Biwkptch [Vivelle-Dot 0.05 MG] 1 patch TRANSDERM SUWE 01/13/19 [History] Isosorbide Mononitrate ER [Imdur] 60 mg PO DAILY tab.er.24h 01/13/19 [Rx] Atorvastatin [Lipitor] 20 mg PO HS 05/09/19 [History] Isosorbide Mononitrate ER [Imdur] 90 mg PO HS 05/09/19 [History] Spironolactone [Aldactone] 25 mg PO Q48H 05/09/19 [History] ALPRAZolam [Xanax] 0.25 mg PO HS 09/17/19 [History] hydrALAZINE HCL [Apresoline] 100 mg PO TID 09/17/19 [History] Metoprolol Tartrate [Lopressor] 100 mg PO TID 02/27/20 [History] cloNIDine HCL [Catapres] 0.1 mg PO TID PRN 06/16/20 [History] Furosemide [Lasix] 20 mg PO Q48H 07/05/20 [History] Nitroglycerin Sl Tabs [Nitrostat] 0.4 mg SL Q5M PRN 08/02/20 [History] Cholecalciferol (Vitamin D3) [Vitamin D3 (3000 Iu)] 75 mcg PO DAILY@1200 [History] Cyanocobalamin (Vitamin B-12) [Vitamin B-12] 500 mcg PO DAILY@1400 07/14/21 [History] Ascorbic Acid [Vitamin C] 1,000 mg PO DAILY@1400 12/01/21 [History] Aspirin 81 mg PO DAILY@1200 12/01/21 [History] Docusate Sodium [Dok] 100 mg PO DAILY@1200 12/01/21 [History] cloNIDine HCL [Catapres] 0.3 mg PO TID #90 tab 12/18/21 [Rx] Follow up Appointment(s)/Referral(s): Karlo Locke MD [Primary Care Provider] - 1 Week Jolly Simental MD [REFERRING] - 1 Week Patient Instructions/Handouts: Chest Pain (DC) Discharge Disposition: HOME SELF-CARE
[2021-12-18] MEDS: INSULIN ASPART (NovoLOG) 100 UNIT/ML VIAL SQ SCH (08:39)
[2021-12-18] MEDS: APIXABAN 5 MG TAB PO SCH (08:40)
[2021-12-18] MEDS: METOPROLOL TARTRATE 50 MG TAB PO SCH (08:40)
[2021-12-18] MEDS: ISOSORBIDE MONONITRATE ER 60 MG TAB.ER.24H PO SCH (08:41)
[2021-12-18] MEDS: hydrALAZINE HCL 50 MG TAB PO SCH (08:41)
[2021-12-18] MEDS: FUROSEMIDE 20 MG TAB PO SCH (08:42)
[2021-12-18] MEDS: cloNIDine HCL 0.1 MG TAB PO SCH (08:42)
--- NOTE | 2021-12-18 08:50 | P.PN ---
Subjective Patient is seen in follow-up for hypertension. Blood pressure improved. Standing blood pressure stable at 127/78 this morning. No dizziness. Denies chest pain or shortness of breath. Good urine output. Vital signs are stable. General: Awake and alert. No acute distress. HEENT: Head exam is unremarkable. LUNGS: Breath sounds decreased. HEART: Rate and Rhythm are regular. ABDOMEN: Soft, no distention. EXTREMITITES: Trace edema. Objective - Vital Signs Vital signs: Vital Signs Temp 97.8 F 12/18/21 02:55 Pulse 55 L 12/18/21 07:33 Resp 18 12/18/21 07:00 BP 108/65 12/18/21 07:33 Pulse Ox 94 L 12/18/21 07:00 Intake & Output 12/17/21 12/18/21 12/18/21 18:59 06:59 18:59 Intake Total 356 Balance 356 Intake: Oral 356 Other: Voiding Method Toilet # Voids 1 2 - Labs CBC & Chem 7: 12/16/21 20:09 12/16/21 20:09 Labs: Abnormal Lab Results - Last 24 Hours (Table) 12/17/21 12/17/21 12/17/21 Range/Units 12:12 17:27 20:55 POC Glucose (mg/dL) 241 H 106 H 156 H (75-99) mg/dL 12/18/21 Range/Units 07:21 POC Glucose (mg/dL) 185 H (75-99) mg/dL Assessment and Plan Plan: Assessment: 1. Accelerated hypertension. Improved from admission. No evidence of renal artery stenosis noted on renal duplex ultrasound. Standing blood pressure 127/78 this morning. 2. Coronary artery disease status post cardiac stenting in the past. 3. A. fib on anticoagulation. 4. Volume overload. Improved with diuresis. Plan: Maintain current antihypertensives. Echocardiogram showed preserved ejection fraction. Follow-up secondary workup. Allergic to ACEi/ARB. Advised patient to follow up outpatient 1 week post discharge.
[2021-12-18] MEDS ORDERED: SPIRONOLACTONE 25 MG TAB PO SCH (09:00)
[2021-12-18] MEDS ORDERED: FAMOTIDINE 20 MG TAB PO SCH (09:00)
--- NOTE | 2021-12-18 09:15 | P.PN ---
Subjective Progress Note Date: 12/18/21 HISTORY OF PRESENT ILLNESS: This is a 89-year-old female with a past medical history significant for hypertension, hyperlipidemia, permanent atrial fibrillation, diabetes, sick sinus syndrome with permanent pacemaker implantation, and coronary artery disease with multivessel PCI.. Patient follows with a Dr. Simental out of [facility]. We have been asked to see the patient in consultation for chest pain and HTN. Patient examined at the bedside. Patient states she came to the hospital after having some chest discomfort at home. She denied radiation of the pain. Denied SOB. No nausea or vomiting. The patient also was found to have uncontrolled hypertensive. This morning, her blood pressure is 166/96. The patient states she has not been receiving her antihypertensive medications. She denies chest pain or pressure at the time of our examination. She states that she had her last cardiac cath a couple years ago and at that time there was no intervention performed. * EKG reveals paced rhythm * Chest xray mild cardiomegaly. No heart failure. No adverse change. * Laboratory data: WBC 9.0. Hemoglobin 14.4. Platelet count 247. Sodium 136. Potassium 4.4. BUN 23. Creatinine 0.70. Troponin negative 1. ProBNP 2600. * Current home cardiac medications include hydralazine 100 mg 3 times a day, Catapres 0.2 mg 3 times a day, Aldactone 25 mg every 48 hours, metoprolol tartrate 100 mg 3 times a day, Imdur 60 mg in the morning and 90 mg at night, Lasix 20 mg every 48 hours, aspirin 81 mg daily, Eliquis 5 mg twice a day and Lipitor 20 mg at night * Most recent echocardiogram obtained in December 2020 revealed ejection fraction 55- 60%, moderate MR, and mild TR 12/18/2021 Patient examined this point. She is sitting up in the chair. She denies any chest pain or pressure. She denies shortness of breath. Blood pressures are significantly improved. Echocardiogram completed revealing ejection fraction 55-60%, trace MR, and trace TR. PHYSICAL EXAM: VITAL SIGNS: Reviewed. GENERAL: Well-developed in no acute distress. HEENT: Head is normocephalic. Pupils are equal, round. Sclerae anicteric. Mucous membranes of the mouth are moist. Neck supple. No JVD or thyromegaly LUNGS: Respirations even and unlabored. Lungs essentially clear to auscultation bilaterally. HEART: Irregular rate and rhythm. S1 and S2 heard. ABDOMEN: Soft. Nondistended. Nontender. EXTREMITIES: Normal range of motion. No clubbing or cyanosis. Peripheral pulses intact. Trace lower extremity edema NEUROLOGIC: Awake and alert. Oriented x 3. ASSESSMENT: Chest pain Hypertension, uncontrolled Permanent atrial fibrillation Diabetes Sick sinus syndrome with previous pacemaker implantation Coronary artery disease with multivessel PCI PLAN: Continue current cardiac medications Patient's blood pressure has improved since admission The patient is stable for discharge home today from a cardiac standpoint We will sign off. Please reconsult if needed. Nurse practitioner note has been reviewed by physician. Signing provider agrees with the documented findings, assessment, and plan of care. Objective - Vital Signs Vital signs: Vital Signs Temp 97.8 F 12/18/21 02:55 Pulse 55 L 12/18/21 07:33 Resp 18 12/18/21 07:00 BP 108/65 12/18/21 07:33 Pulse Ox 94 L 12/18/21 07:00 Intake & Output 12/17/21 12/18/21 12/18/21 18:59 06:59 18:59 Intake Total 356 Balance 356 Intake: Oral 356 Other: Voiding Method Toilet # Voids 1 2 - Labs CBC & Chem 7: 12/16/21 20:09 12/16/21 20:09 Labs: Abnormal Lab Results - Last 24 Hours (Table) 12/17/21 12/17/21 12/17/21 Range/Units 12:12 17:27 20:55 POC Glucose (mg/dL) 241 H 106 H 156 H (75-99) mg/dL 12/18/21 Range/Units 07:21 POC Glucose (mg/dL) 185 H (75-99) mg/dL
[2021-12-18 09:49] LABS: African American GFR (CKD) 75.8 (60.0-200.0); Anion Gap 9.1 mmol/L (10.00-18.00); Blood Urea Nitrogen 18.4 mg/dL (9.0-27.0); Calcium 9.6 mg/dL (8.7-10.3); Carbon Dioxide 28.9 mmol/L (20.0-27.5); Non-African American GFR(CKD) 65.4 (60.0-200.0); Potassium 4.3 mmol/L (3.5-5.5)
== END 2021-12-18 09:58 | disposition home or self-care (01) ==
LOC: EC 19:46 → 6NMEDSUR 23:04
PROVIDERS: ADMIT Family Medicine; ATTEND Family Medicine
DX: R07.2 Precordial pain (principal); I11.0 Hypertensive heart disease with heart failure; I50.32 Chronic diastolic (congestive) heart failure; I25.10 Atherosclerotic heart disease of native coronary artery without angina pectoris; I48.21 Permanent atrial fibrillation; I49.5 Sick sinus syndrome; Z95.0 Presence of cardiac pacemaker; E03.9 Hypothyroidism, unspecified; E11.40 Type 2 diabetes mellitus with diabetic neuropathy, unspecified; K21.9 Gastro-esophageal reflux disease without esophagitis; E78.5 Hyperlipidemia, unspecified; F41.9 Anxiety disorder, unspecified; G47.30 Sleep apnea, unspecified; G25.81 Restless legs syndrome; M19.90 Unspecified osteoarthritis, unspecified site; K58.9 Irritable bowel syndrome, unspecified; I83.90 Asymptomatic varicose veins of unspecified lower extremity; E66.9 Obesity, unspecified; Z68.30 Body mass index [BMI] 30.0-30.9, adult; Z79.82 Long term (current) use of aspirin; Z79.84 Long term (current) use of oral hypoglycemic drugs; Z79.890 Hormone replacement therapy; Z79.01 Long term (current) use of anticoagulants; Z79.899 Other long term (current) drug therapy; J30.89 Other allergic rhinitis; Z88.1 Allergy status to other antibiotic agents; Z88.8 Allergy status to other drugs, medicaments and biological substances; Z95.5 Presence of coronary angioplasty implant and graft; Z90.710 Acquired absence of both cervix and uterus; Z87.891 Personal history of nicotine dependence; Z85.828 Personal history of other malignant neoplasm of skin; Z98.42 Cataract extraction status, left eye; Z98.41 Cataract extraction status, right eye; Z90.49 Acquired absence of other specified parts of digestive tract; Z96.1 Presence of intraocular lens; Z82.49 Family history of ischemic heart disease and other diseases of the circulatory system; Z82.3 Family history of stroke; Z80.8 Family history of malignant neoplasm of other organs or systems; Z80.0 Family history of malignant neoplasm of digestive organs
CPT/HCPCS: 99285; 96374; 36415; 93005; 93306; 83835; 83880; 80053; 80048; 82533; 82088; 84244; 83735 ×2; 84484 ×2; 85025; 85610; 85730; 71046; 93975; G0378 ×3; J2270

== ENCOUNTER 2022-02-28 23:00 | Inpatient (IN) | payer MEDICARE ==
--- NOTE | 2022-02-28 23:39 | ED ---
Chest Pain HPI - General Chief Complaint: Chest Pain Stated Complaint: Chest Pain Time Seen by Provider: 02/28/22 23:15 Source: patient Mode of arrival: ambulatory Limitations: no limitations - History of Present Illness Initial Comments: This patient is an 89-year-old woman who presents to have evaluation of substernal chest pain. She states that it had come on while she was reading the paper. The patient states that she took nitroglycerin initially with no relief but then she found that it was old. She took a new nitroglycerin and it did go away. She states that it recurred so she came here to be evaluated. She describes as a hollow feeling. Currently mild. No associated symptoms. MD Complaint: chest pain Onset/Timin -: hour(s) Onset: during rest Pain Location: substernal Pain Radiation: none Severity: moderate Quality: other (Like it's hollow) Consistency: intermittent Improves With: nitroglycerin Worsens With: nothing Treatments Prior to Arrival: nitroglycerin - Related Data Home Medications Medication Instructions Recorded Confirmed Apixaban [Eliquis] 5 mg PO BID 04/19/17 12/16/21 glipiZIDE XL [Glucotrol XL] 2.5 mg PO DAILY 04/19/17 12/16/21 Levothyroxine Sodium [Synthroid] 75 mcg PO DAILY 05/26/17 12/16/21 Estradiol 0.05MG/24Hr Biwkptch 1 patch TRANSDERM SUWE 01/13/19 12/16/21 [Vivelle-Dot 0.05 MG] Atorvastatin [Lipitor] 20 mg PO HS 05/09/19 12/16/21 Isosorbide Mononitrate ER [Imdur] 90 mg PO HS 05/09/19 12/16/21 Spironolactone [Aldactone] 25 mg PO Q48H 05/09/19 12/16/21 ALPRAZolam [Xanax] 0.25 mg PO HS 09/17/19 12/16/21 hydrALAZINE HCL [Apresoline] 100 mg PO TID 09/17/19 12/16/21 Metoprolol Tartrate [Lopressor] 100 mg PO TID 02/27/20 12/16/21 cloNIDine HCL [Catapres] 0.1 mg PO TID PRN 06/16/20 12/16/21 Furosemide [Lasix] 20 mg PO Q48H 07/05/20 12/16/21 Nitroglycerin Sl Tabs [Nitrostat] 0.4 mg SL Q5M PRN 08/02/20 12/16/21 Cholecalciferol (Vitamin D3) 75 mcg PO DAILY@1200 01/01/21 12/16/21 [Vitamin D3 (3000 Iu)] Cyanocobalamin (Vitamin B-12) 500 mcg PO DAILY@1400 07/14/21 12/16/21 [Vitamin B-12] Ascorbic Acid [Vitamin C] 1,000 mg PO DAILY@1400 12/01/21 12/16/21 Aspirin 81 mg PO DAILY@119912/01/21 12/16/21 Docusate Sodium [Dok] 100 mg PO DAILY@119912/01/21 12/16/21 Previous Rx's Medication Instructions Recorded Isosorbide Mononitrate ER [Imdur] 60 mg PO DAILY tab.er.24h 01/13/19 cloNIDine HCL [Catapres] 0.3 mg PO TID #90 tab 12/18/21 Allergies Allergy/AdvReac Type Severity Reaction Status Date / Time JORGITO Inhibitors Allergy Severe Swelling Verified 02/28/22 23:06 cortisone Allergy Severe Rash/Hives, Verified 02/28/22 23:06 high BP Calcium Channel Blocking AdvReac SORES IN Verified 02/28/22 23:06 Agent Dilt MOUTH cephalexin [From Keflex] AdvReac Nausea & Verified 02/28/22 23:06 Vomiting sitagliptin [From Januvia] AdvReac Rapid Verified 02/28/22 23:06 Heart Rate dust,trees Allergy Itching Uncoded 02/28/22 23:06 Review of Systems ROS Statement: Those systems with pertinent positive or pertinent negative responses have been documented in the HPI. ROS Other: All systems not noted in ROS Statement are negative. Constitutional: Denies: fever, chills Respiratory: Denies: cough, dyspnea, wheezes Cardiovascular: Reports: chest pain. Denies: palpitations, orthopnea, edema, syncope Gastrointestinal: Denies: abdominal pain, nausea, vomiting Genitourinary: Denies: dysuria, hematuria Musculoskeletal: Denies: back pain Skin: Denies: rash Neurological: Denies: headache, weakness, numbness EKG Findings - EKG Comments: EKG Findings:: Paced rhythm rate 85 bpm - EKG Results: EKG: interpreted by AMELIA Past Medical History Past Medical History: Atrial Fibrillation, Coronary Artery Disease (CAD), Cancer, Chest Pain / Angina, Diabetes Mellitus, GERD/Reflux, Hyperlipidemia, Hypertension, Osteoarthritis (OA), Sleep Apnea/CPAP/BIPAP, Thyroid Disorder Additional Past Medical History / Comment(s): skin cancer, restless leg syndrome, varicose veins, IBS, History of Any Multi-Drug Resistant Organisms: None Reported Past Surgical History: Adenoidectomy, Appendectomy, Breast Surgery, Cholecystectomy, Heart Catheterization With Stent, Hysterectomy, Orthopedic Surgery, Pacemaker, Tonsillectomy Additional Past Surgical History / Comment(s): walt cataract, 3 stents, partial thyroidectomy, rt shoulder rotator cuff, walt breast biopsy, metal clip in rt breast Past Anesthesia/Blood Transfusion Reactions: No Reported Reaction Additional Past Anesthesia/Blood Transfusion Reaction / Comment(s): patient has never had a blood transfusion Date of Last Stent Placement:: 2014 Type of Cardiac Device: Permanent Pacemaker Device Placement Date:: 2015 Past Psychological History: Anxiety Smoking Status: Never smoker Past Alcohol Use History: Rare Past Drug Use History: None Reported - Past Family History Mother Additional Family Medical History / Comment(s): Mother at age 76 from massive stroke. Brother(s) Additional Family Medical History / Comment(s): The patient had a total of 3 brothers. One brother from melanoma. One brother is with history of coronary artery disease status post CABG. One brother has from colon cancer with history of coronary artery disease. Patient does not have any sisters. Son(s) History Unknown: Yes (Healthy 3 sons) Additional Family Medical History / Comment(s): Patient has 3 sons and 1 daughter. One son has history of coronary artery disease, second son has histo ry of AICD. Patient has 1 son and 1 daughter with no major medical problems. Father Additional Family Medical History / Comment(s): Father at age 59 from a myocardial infarction. General Exam Limitations: no limitations General appearance: alert, in no apparent distress Head exam: Present: atraumatic, normocephalic Eye exam: Present: normal appearance. Absent: scleral icterus, conjunctival injection Neck exam: Present: normal inspection Respiratory exam: Present: normal lung sounds bilaterally. Absent: respiratory distress, wheezes, rales, rhonchi, stridor, chest wall tenderness, accessory muscle use Cardiovascular Exam: Present: regular rate, normal rhythm, normal heart sounds. Absent: systolic murmur, diastolic murmur, rubs, gallop GI/Abdominal exam: Present: soft. Absent: distended, tenderness, guarding, rebound, mass Extremities exam: Present: normal inspection, normal capillary refill. Absent: pedal edema, calf tenderness Neurological exam: Present: alert Skin exam: Present: warm, dry, intact, normal color. Absent: rash Course Vital Signs 02/28/22 23:04 Temperature 97.6 F Pulse Rate 67 Respiratory 18 Rate Blood Pressure 165/97 O2 Sat by Pulse 94 L Oximetry Disposition Referrals: Karlo Locke MD [Primary Care Provider] - 1-2 days
[2022-02-28 23:50] LABS: Basophils # (A) 0.1 k/uL (0-0.2); Basophils % (A) 1 %; Eosinophils # (A) 0.1 k/uL (0-0.7); Eosinophils % (A) 1 %; HCT 45.3 % (34.0-46.0); HGB 14.2 gm/dL (11.4-16.0); Lymphocytes # (A) 1.1 k/uL (1.0-4.8); Lymphocytes % (A) 9 %; MCH 30.7 pg (25.0-35.0); MCHC 31.4 g/dL (31.0-37.0); MCV 97.8 fL (80.0-100.0); Mean Platelet Volume 8.1; Monocytes % (A) 8 %; Neutrophils # (A) 9.8 k/uL (1.3-7.7); Neutrophils % (A) 81 %; Platelet Count 214 k/uL (150-450); RBC 4.63 m/uL (3.80-5.40); RDW 13.4 % (11.5-15.5); WBC 12.1 k/uL (3.8-10.6)
[2022-03-01 00:01] LABS: Partial Thromboplastin Time 23.8 sec (22.0-30.0); Prothrombin Time 10.6 sec (9.0-12.0)
[2022-03-01 00:02] LABS: Albumin 3.8 g/dL (3.5-5.0); Calcium 9.6 mg/dL (8.4-10.2); Magnesium 1.9 mg/dL (1.6-2.3); Potassium 4.4 mmol/L (3.5-5.1); Total Bilirubin 1.1 mg/dL (0.2-1.3); Total Protein 6.7 g/dL (6.3-8.2)
--- NOTE | 2022-03-01 01:37 | XR ---
EXAMINATION TYPE: XR chest 2V DATE OF EXAM: 02/28/2022 COMPARISON: NONE HISTORY: Chest pain TECHNIQUE: 2 views FINDINGS: Heart is borderline enlarged. No heart failure. Lungs are clear of consolidation. Bony thorax is intact. No pleural effusion. IMPRESSION: Borderline cardiomegaly. No active cardiopulmonary disease. No change.
[2022-03-01] MEDS ORDERED: NITROGLYCERIN SL TABS 0.4 MG TAB SUBLINGUAL PRN ×2 (05:46→07:52)
[2022-03-01] MEDS ORDERED: cloNIDine HCL 0.1 MG TAB PO PRN ×3 (07:52→10:10)
[2022-03-01] MEDS ORDERED: DOCUSATE 100 MG CAP PO PRN (07:52)
[2022-03-01] MEDS: SPIRONOLACTONE 25 MG TAB PO SCH (08:48)
[2022-03-01] MEDS: hydrALAZINE HCL 50 MG TAB PO SCH ×3 (08:49→20:51)
[2022-03-01] MEDS: APIXABAN 5 MG TAB PO SCH ×2 (08:49→20:50)
[2022-03-01] MEDS: ISOSORBIDE MONONITRATE ER 60 MG TAB.ER.24H PO SCH (08:50)
[2022-03-01] MEDS: LEVOTHYROXINE 75 MCG TAB PO SCH (08:52)
[2022-03-01] MEDS: carvediloL 12.5 MG TAB PO SCH ×2 (08:53→17:34)
[2022-03-01] MEDS: ASPIRIN 81 MG PO SCH (08:53)
[2022-03-01] MEDS ORDERED: METOPROLOL TARTRATE 50 MG TAB PO SCH (09:00)
[2022-03-01] MEDS ORDERED: SPIRONOLACTONE 25 MG TAB PO SCH (09:00)
[2022-03-01] MEDS: minoxidiL 2.5 MG TAB PO SCH (09:52)
--- NOTE | 2022-03-01 10:25 | P.HPIM ---
History of Present Illness H&P Date: 03/01/22 HISTORY OF PRESENT ILLNESS This is an 89-year-old female patient of Dr. Locke with past medical history of CAD post angina stress test and heart catheter with stent placement in the past. History of arrhythmia post pacemaker, history of recurrent and urgent hypertension on multi-medication. Multi-admission to the hospital with noncontrolled hypertension require multi-medication and has been seen by nephrology and cardiology. Baseline patient seen cardiology at [facility] Dr. Simental last seen couple months ago. Patient complains of midsternal intermittent chest pain that started yesterday and then from 7 PM to 9 PM it went away but returned with increasing ferocity. She states that she took "a bunch" of nitroglycerin at home. She was unable to check her blood pressure at home is a battery was on her blood pressure machine. Renal artery ultrasound done on previous admission revealed no evidence of hemodynamically significant renal artery stenosis. Discussed cardiology situation with the patient and she plans to follow-up with Dr. Simental one more time and then most likely transition to Dr. Lorenzana locally. Patient was found to be afebrile, heart rate 67, blood pressure 165/97, pulse ox 94% on room air. Blood pressure this morning is 203/113 but patient has not received any of her medications. EKG is a ventricularly paced rhythm. WBC 12.1, hemoglobin 14.2, platelet count 214. Sodium 136 otherwise electrolytes are normal. BUN 34 creatinine 0.69. Blood sugar 191. Magnesium 1.9. AST 124, ALT 93, alkaline phosphatase 101, bilirubin 1.1. Troponin negative on 3 draws. Albumin 3.8. Chest x-ray reveals borderline cardiomegaly. No heart failure. No adverse change. Patient has been placed on the observation unit, patient seen by cardiology and metoprolol was changed to Coreg, minoxidil 2.5 mg daily added, Aldactone increased to 50 mg daily. We are changing clonidine to 0.1 mg 3 times daily with parameters and on as needed basis. Plan is to monitor patient overnight and most likely discharge home tomorrow. 12/17/2021 Echocardiogram reveals EF of 55-60%, trace mitral regurgitation. REVIEW OF SYSTEMS CONSTITUTIONAL: Well-developed no acute respiratory distress. denies fever or chills EYES: No icterus sclerae, no conjunctivitis. EARS, NOSE, MOUTH, THROAT, and FACE: No sore throat, lymphadenopathy, carotid bruits or deformity. numbness to the right side of her face. RESPIRATORY: Reports SOB no cough or wheezes. CARDIOVASCULAR: Reports chest pain-resolved, no palpitations, no PND, no Orthopnea, no angina. GASTROINTESTINAL: No Abd pain, Nausea or vomiting, no Diarrhea no constipation, No GI Bleed, no distention or masses. GENITOURINARY: Negative for Hematuria or UTI, no kidney stones. INTEGUMENT/BREAST: Negative for any muscular injury with mild osteoarthritis.. HEMATOLOGIC/LYMPHATIC: Negative for bleed or purpura. MUSCULOSKELTAL: Negative for Myalgia or arthralgia. NEURLOGICAL: No LOC, Sz or syncope, no blurred vision, no dizziness or abnormality, no weakness BEHAVIORAL/PSYCH: Negative. ENDOCRINE: Negative. PHYSICAL EXAMINATION General Appearance: Alert, cooperative, no distress, appears stated age of 89 years of age, resting on the edge of the bed and appears to be comfortable . Neck HEENT: Supple, no lymphadenopathy, no thyroid enlargement, no carotid bruits. numbness to the right side of her face and lip with no deficit. Lungs: Clear to auscultation without crackles or wheezes no rhonchi, no deformity. Chest Wall: Chest wall normal expansion with deep inspiration no tenderness and no deformity was found on exam, no costochondral pain or discomfort. Heart: Regular rate and rhythm, S1, S2 normal, no murmur, rub or gallop. Back: Symmetric, no curvature, ROM normal, no CVA tenderness. Abdomen: Soft, non-tender, bowel sounds active all four quadrants, no masses, no organomegaly. Extremities: Extremities normal, atraumatic, no cyanosis or edema. Pulses: 2+ and symmetric. Skin: Skin color, texture, tugor normal, no rashes or lesions. Neurologic: Alert oriented x3 cranial nerves II through XII intact, no motor deficit, no abnormal balance or gait. ASSESSMENT AND PLAN Chest pain with negative troponin. Chest pain most likely due to accelerated hypertension. Cardiology consult appreciated, echocardiogram, continue aspirin 81 mg daily, Lipitor 10 mg daily, Lopressor changed to Coreg 25 mg twice daily, continue Imdur 60 mg in the morning and 90 mg in the evening, increase Aldactone to 50 mg daily, minoxidil 2.5 mg daily added, continue hydralazine 100 mg 3 times daily, Lasix 20 mg every 48 hours, change Catapres to 0.1 mg 3 times daily as needed for systolic blood pressure greater than 160 or diastolic blood pressure above 90. Accelerated hypertension. Continue as above, multiple medication changes made. Plan to monitor patient overnight and possible discharge tomorrow. Hypertension, hypertensive cardiovascular disease. Continue as above History of coronary artery disease. Continue aspirin 81 mg daily, Lipitor 10 mg at bedtime, Coreg 25 mg twice daily, Imdur 60 mg daily and 90 mg at bedtime. Permanent atrial fibrillation. Continue eliquis 5 mg twice daily and Coreg. Sick sinus syndrome status post pacemaker implantation. Chronic diastolic heart failure. Continue BB, Lasix, Aldactone. Diabetes mellitus type 2. Continue glipizide 2.5 mg with breakfast and NovoLog scale before meals and at bedtime. Hypothyroidism. Continue levothyroxine 75 g daily. Chronic diabetic neuropathy. Gastroesophageal reflux disease and GI prophylaxis. Continue Pepcid 20 mg daily as needed. DVT prophylaxis. Eliquis. Patient will be admitted to the hospital for a minimum of 2 night stay. DISCHARGE PLAN Return home Impression and plan of care have been directed as dictated by the signing physician. Tereza Arnett nurse practitioner acting as scribe for signing physician. Past Medical History Past Medical History: Atrial Fibrillation, Coronary Artery Disease (CAD), Cancer, Chest Pain / Angina, Diabetes Mellitus, GERD/Reflux, Hyperlipidemia, Hypertension, Osteoarthritis (OA), Sleep Apnea/CPAP/BIPAP, Thyroid Disorder Additional Past Medical History / Comment(s): skin cancer, restless leg syndrome, varicose veins, IBS, History of Any Multi-Drug Resistant Organisms: None Reported Past Surgical History: Adenoidectomy, Appendectomy, Breast Surgery, Cholecystectomy, Heart Catheterization With Stent, Hysterectomy, Orthopedic S urgery, Pacemaker, Tonsillectomy Additional Past Surgical History / Comment(s): walt cataract, 3 stents, partial thyroidectomy, rt shoulder rotator cuff, walt breast biopsy, metal clip in rt breast Past Anesthesia/Blood Transfusion Reactions: No Reported Reaction Additional Past Anesthesia/Blood Transfusion Reaction / Comment(s): patient has never had a blood transfusion Date of Last Stent Placement:: 2014 Type of Cardiac Device: Permanent Pacemaker Device Placement Date:: 2015 Past Psychological History: Anxiety Smoking Status: Never smoker Past Alcohol Use History: Rare Past Drug Use History: None Reported - Past Family History Mother Additional Family Medical History / Comment(s): Mother at age 76 from massive stroke. Brother(s) Additional Family Medical History / Comment(s): The patient had a total of 3 brothers. One brother from melanoma. One brother is with history of coronary artery disease status post CABG. One brother has from colon cancer with history of coronary artery disease. Patient does not have any sisters. Son(s) History Unknown: Yes (Healthy 3 sons) Additional Family Medical History / Comment(s): Patient has 3 sons and 1 daughter. One son has history of coronary artery disease, second son has history of AICD. Patient has 1 son and 1 daughter with no major medical problems. Father Additional Family Medical History / Comment(s): Father at age 59 from a myocardial infarction. Medications and Allergies Home Medications Medication Instructions Recorded Confirmed Type Apixaban [Eliquis] 5 mg PO BID 04/19/17 03/01/22 History glipiZIDE XL [Glucotrol XL] 2.5 mg PO DAILY 04/19/17 03/01/22 History Levothyroxine Sodium [Synthroid] 75 mcg PO DAILY 05/26/17 03/01/22 History Estradiol 0.05MG/24Hr Biwkptch 1 patch TRANSDERM SUWE 01/13/19 03/01/22 History [Vivelle-Dot 0.05 MG] Isosorbide Mononitrate ER [Imdur] 60 mg PO DAILY tab.er.24h 01/13/19 03/01/22 Rx Isosorbide Mononitrate ER [Imdur] 90 mg PO HS 05/09/19 03/01/22 History Spironolactone [Aldactone] 25 mg PO Q48H 05/09/19 03/01/22 History ALPRAZolam [Xanax] 0.25 mg PO HS PRN 09/17/19 03/01/22 History hydrALAZINE HCL [Apresoline] 100 mg PO TID 09/17/19 03/01/22 History Metoprolol Tartrate [Lopressor] 100 mg PO TID 02/27/20 03/01/22 History cloNIDine HCL [Catapres] 0.1 mg PO HS PRN 06/16/20 03/01/22 History Furosemide [Lasix] 20 mg PO Q48H 07/05/20 03/01/22 History Nitroglycerin Sl Tabs [Nitrostat] 0.4 mg SL Q5M PRN 08/02/20 03/01/22 History Cholecalciferol (Vitamin D3) 75 mcg PO DAILY@1200 01/01/21 03/01/22 History [Vitamin D3 (3000 Iu)] Cyanocobalamin (Vitamin B-12) 500 mcg PO DAILY@1400 07/14/21 03/01/22 History [Vitamin B-12] Ascorbic Acid [Vitamin C] 1,000 mg PO DAILY@1400 12/01/21 03/01/22 History Aspirin 81 mg PO DAILY@1200 12/01/21 03/01/22 History Docusate Sodium [Dok] 100 mg PO DAILY PRN 12/01/21 03/01/22 History Simvastatin [Zocor] 20 mg PO HS 03/01/22 03/01/22 History cloNIDine HCL [Catapres] 0.3 mg PO TID PRN 03/01/22 03/01/22 History Allergies Allergy/AdvReac Type Severity Reaction Status Date / Time JORGITO Inhibitors Allergy Severe Swelling Verified 02/28/22 23:06 cortisone Allergy Severe Rash/Hives, Verified 02/28/22 23:06 high BP Calcium Channel Blocking AdvReac SORES IN Verified 02/28/22 23:06 Agent Dilt MOUTH cephalexin [From Keflex] AdvReac Nausea & Verified 02/28/22 23:06 Vomiting sitagliptin [From Januvia] AdvReac Rapid Verified 02/28/22 23:06 Heart Rate dust,trees Allergy Itching Uncoded 03/01/22 06:19 Physical Exam Vitals: Vital Signs Temp Pulse Pulse Resp BP Pulse Ox 03/01/22 05:30 68 17 161/75 95 03/01/22 00:43 64 60 18 160/95 02/28/22 23:04 97.6 F 67 18 165/97 94 L Intake and Output 02/28/22 03/01/22 03/01/22 22:59 06:59 14:59 Other: Weight 83.461 kg Results CBC & Chem 7: 02/28/22 23:38 02/28/22 23:38 Labs: Abnormal Lab Results - Last 24 Hours (Table) 02/28/22 02/28/22 Range/Units 23:38 23:38 WBC 12.1 H (3.8-10.6) k/uL Neutrophils # 9.8 H (1.3-7.7) k/uL Sodium 136 L (137-145) mmol/L BUN 34 H (7-17) mg/dL Glucose 191 H (74-99) mg/dL AST 124 H (14-36) U/L ALT 93 H (4-34) U/L
--- NOTE | 2022-03-01 10:25 | P.CRDCN ---
History of Present Illness History of present illness: This is a 89-year-old female with a past medical history significant for hypertension, hyperlipidemia, permanent atrial fibrillation, type 2 diabetes, sick sinus syndrome with permanent pacemaker implantation, and coronary artery disease s/p 3 prior stent placements per patient and history of balloon angioplasties in the past. Patient follows with a Dr. Simental out of [facility]. We have been asked to see the patient in consultation for chest pain. Patient presents emergency department with chest discomfort, she states yesterday around 7:00am she began to have some midsternal chest discomfort. Non- radiating, non-exertional. She states she took clonidine, nitro, and had some i mprovement in her pain. Later in the day her chest discomfort returned and she presented to the emergency room for further evaluation. She states that over the past couple weeks patient has been having some shortness of breath with some activities. She denies any palpitations, lightheadedness, dizziness, or syncope. She denies any change to her medications recently. She does endorse her BP has been fluctuating at home, however, her machine batteries were yesterday and she did not check her BP. Her chest pain has improved since admission. She does feel flushed feeling in her face which she states she gets when her BP is high. BP 203/113 this morning, unfortunately did not receive her BP meds overnight. Patient was recently admitted in December 2021 with uncontrolled hypertension. She was started on clonidine 0.3 mg TID, however, patient does not take this every day she takes it PRN when she notices her BP is high at home. DIAGNOSTICS * EKG reveals V paced rhythm * Chest xray mild cardiomegaly. No heart failure. No adverse change. * Laboratory data: WBC 12.1, hemoglobin 14.2, 214, sodium 136, potassium 4.4, BUN 34, serum creatinine 0.6, troponin negative 3 * Current home cardiac medications include hydralazine 100 mg 3 times a day, Catapres 0.3 mg 3 times a day (PRN) clonidine 0.1mg nightly PRN , Aldactone 25 mg every 48 hours, metoprolol tartrate 100 mg 3 times a day, Imdur 60 mg in the morning and 90 mg at night, Lasix 20 mg every 48 hours, aspirin 81 mg daily, Eliquis 5 mg twice a day and Lipitor 20 mg at night * Most recent echocardiogram obtained in December 2021 revealed ejection fraction 55- 60%, trace MR, and trace TR REVIEW OF SYSTEMS: At the time of my exam: CONSTITUTIONAL: Denies fever or chills. HEENT: Denies blurred vision, vision changes, or eye pain. Denies hemoptysis CARDIOVASCULAR: Reports chest pain. Denies orthopnea. Denies PND. Denies palpitations RESPIRATORY: Denies shortness of breath. GASTROINTESTINAL: Denies abdominal pain. Denies nausea or vomiting. HEMATOLOGIC: Denies bleeding disorders. GENITOURINARY: Denies any blood in urine. SKIN: Denies pruitis. Denies rash. PHYSICAL EXAM: VITAL SIGNS: Reviewed. GENERAL: Well-developed in no acute distress. HEENT: Head is normocephalic. Pupils are equal, round. Sclerae anicteric. Mucous membranes of the mouth are moist. Neck supple. No JVD or thyromegaly LUNGS: Respirations even and unlabored. Lungs crackles in the bases to auscultation bilaterally. HEART: Irregular rate and rhythm. S1 and S2 heard. ABDOMEN: Soft. Nondistended. Nontender. EXTREMITIES: Normal range of motion. No clubbing or cyanosis. Peripheral pulses intact. Trace bilateral lower extremity edema NEUROLOGIC: Awake and alert. Oriented x 3. ASSESSMENT: Chest pain, atypical, acute coronary syndrome has been ruled out, appears to be related to uncontrolled hypertension Hypertension Permanent atrial fibrillation on Eliquis Type 2 Diabetes Sick sinus syndrome with previous pacemaker implantation Coronary artery disease with prior multivessel PCI PLAN: Suspect patients chest discomfort is secondary to her uncontrolled hypertension, could be related to rebound with clonidine only taking PRN at home Increase spironolactone 50mg daily Change metoprolol tartrate to Coreg 25mg BID Give 20mg IV Lasix x 1 Continue Imdur, Lasix Q48hr PO Continue eliquis and statin Consider minoxidil as well Continue to monitor blood pressure. Further recommendations pending patient course Nurse practitioner note has been reviewed by physician. Signing provider agrees with the documented findings, assessment, and plan of care. Past Medical History Past Medical History: Atrial Fibrillation, Coronary Artery Disease (CAD), Cancer, Chest Pain / Angina, Diabetes Mellitus, GERD/Reflux, Hyperlipidemia, Hypertension, Osteoarthritis (OA), Sleep Apnea/CPAP/BIPAP, Thyroid Disorder Additional Past Medical History / Comment(s): skin cancer, restless leg syndrome, varicose veins, IBS, History of Any Multi-Drug Resistant Organisms: None Reported Past Surgical History: Adenoidectomy, Appendectomy, Breast Surgery, Cholecystectomy, Heart Catheterization With Stent, Hysterectomy, Orthopedic Surgery, Pacemaker, Tonsillectomy Additional Past Surgical History / Comment(s): walt cataract, 3 stents, partial thyroidectomy, rt shoulder rotator cuff, walt breast biopsy, metal clip in rt breast Past Anesthesia/Blood Transfusion Reactions: No Reported Reaction Additional Past Anesthesia/Blood Transfusion Reaction / Comment(s): patient has never had a blood transfusion Date of Last Stent Placement:: 2014 Type of Cardiac Device: Permanent Pacemaker Device Placement Date:: 2015 Past Psychological History: Anxiety Smoking Status: Never smoker Past Alcohol Use History: Rare Past Drug Use History: None Reported - Past Family History Mother Additional Family Medical History / Comment(s): Mother at age 76 from massive stroke. Brother(s) Additional Family Medical History / Comment(s): The patient had a total of 3 brothers. One brother from melanoma. One brother is with history of coronary artery disease status post CABG. One brother has from colon cancer with history of coronary artery disease. Patient does not have any sisters. Son(s) History Unknown: Yes (Healthy 3 sons) Additional Family Medical History / Comment(s): Patient has 3 sons and 1 daughter. One son has history of coronary artery disease, second son has history of AICD. Patient has 1 son and 1 daughter with no major medical problems. Father Additional Family Medical History / Comment(s): Father at age 59 from a myocardial infarction. Medications and Allergies Home Medications Medication Instructions Recorded Confirmed Type Apixaban [Eliquis] 5 mg PO BID 04/19/17 03/01/22 History glipiZIDE XL [Glucotrol XL] 2.5 mg PO DAILY 04/19/17 03/01/22 History Levothyroxine Sodium [Synthroid] 75 mcg PO DAILY 05/26/17 03/01/22 History Estradiol 0.05MG/24Hr Biwkptch 1 patch TRANSDERM SUWE 01/13/19 03/01/22 History [Vivelle-Dot 0.05 MG] Isosorbide Mononitrate ER [Imdur] 60 mg PO DAILY tab.er.24h 01/13/19 03/01/22 Rx Isosorbide Mononitrate ER [Imdur] 90 mg PO HS 05/09/19 03/01/22 History Spironolactone [Aldactone] 25 mg PO Q48H 05/09/19 03/01/22 History ALPRAZolam [Xanax] 0.25 mg PO HS PRN 09/17/19 03/01/22 History hydrALAZINE HCL [Apresoline] 100 mg PO TID 09/17/19 03/01/22 History Metoprolol Tartrate [Lopressor] 100 mg PO TID 02/27/20 03/01/22 History cloNIDine HCL [Catapres] 0.1 mg PO HS PRN 06/16/20 03/01/22 History Furosemide [Lasix] 20 mg PO Q48H 07/05/20 03/01/22 History Nitroglycerin Sl Tabs [Nitrostat] 0.4 mg SL Q5M PRN 08/02/20 03/01/22 History Cholecalciferol (Vitamin D3) 75 mcg PO DAILY@1200 01/01/21 03/01/22 History [Vitamin D3 (3000 Iu)] Cyanocobalamin (Vitamin B-12) 500 mcg PO DAILY@1400 07/14/21 03/01/22 History [Vitamin B-12] Ascorbic Acid [Vitamin C] 1,000 mg PO DAILY@1400 12/01/21 03/01/22 History Aspirin 81 mg PO DAILY@1200 12/01/21 03/01/22 History Docusate Sodium [Dok] 100 mg PO DAILY PRN 12/01/21 03/01/22 History Simvastatin [Zocor] 20 mg PO HS 03/01/22 03/01/22 History cloNIDine HCL [Catapres] 0.3 mg PO TID PRN 03/01/22 03/01/22 History Allergies Allergy/AdvReac Type Severity Reaction Status Date / Time JORGITO Inhibitors Allergy Severe Swelling Verified 02/28/22 23:06 cortisone Allergy Severe Rash/Hives, Verified 02/28/22 23:06 high BP Calcium Channel Blocking AdvReac SORES IN Verified 02/28/22 23:06 Agent Dilt MOUTH cephalexin [From Keflex] AdvReac Nausea & Verified 02/28/22 23:06 Vomiting sitagliptin [From [facility]] AdvReac Rapid Verified 02/28/22 23:06 Heart Rate dust,trees Allergy Itching Uncoded 03/01/22 06:19 Physical Exam Vitals: Vital Signs Temp Pulse Pulse Resp BP Pulse Ox 03/01/22 05:30 68 17 161/75 95 03/01/22 00:43 64 60 18 160/95 02/28/22 23:04 97.6 F 67 18 165/97 94 L Intake and Output 02/28/22 03/01/22 03/01/22 22:59 06:59 14:59 Other: Weight 83.461 kg Results 02/28/22 23:38 02/28/22 23:38 Cardiac Enzymes 02/28/22 02/28/22 03/01/22 Range/Units 23:38 23:38 01:21 AST 124 H (14-36) U/L Troponin I <0.012 <0.012 (0.000-0.034) ng/mL Coagulation 02/28/22 Range/Units 23:38 PT 10.6 (9.0-12.0) sec APTT 23.8 (22.0-30.0) sec CBC 02/28/22 Range/Units 23:38 WBC 12.1 H (3.8-10.6) k/uL RBC 4.63 (3.80-5.40) m/uL Hgb 14.2 (11.4-16.0) gm/dL Hct 45.3 (34.0-46.0) % Plt Count 214 (150-450) k/uL Comprehensive Metabolic Panel 02/28/22 Range/Units 23:38 Sodium 136 L (137-145) mmol/L Potassium 4.4 (3.5-5.1) mmol/L Chloride 104 (98-107) mmol/L Carbon Dioxide 26 (22-30) mmol/L BUN 34 H (7-17) mg/dL Creatinine 0.69 (0.52-1.04) mg/dL Glucose 191 H (74-99) mg/dL Calcium 9.6 (8.4-10.2) mg/dL AST 124 H (14-36) U/L ALT 93 H (4-34) U/L Alkaline Phosphatase 101 (38-126) U/L Total Protein 6.7 (6.3-8.2) g/dL Albumin 3.8 (3.5-5.0) g/dL Current Medications Generic Name Dose Route Start Last Admin Trade Name Freq PRN Reason Stop Dose Admin Aspirin 325 mg 03/02/22 09:00 Aspirin 325 Mg Tab PO DAILY DULCE Sodium Chloride 1,000 mls @ 20 mls/hr 03/01/22 06:00 Saline 0.9% IV .Q24H DULCE Nitroglycerin 0.4 mg 03/01/22 05:46 Nitroglycerin Sl Tabs 0.4 Mg Tab SUBLINGUAL Q5M PRN Chest Pain Intake and Output 02/28/22 03/01/22 03/01/22 22:59 06:59 14:59 Other: Weight 83.461 kg 02/28/22 23:38 02/28/22 23:38
[2022-03-01] MEDS: SODIUM CHLORIDE 0.9% 1,000 ML IV SCH (10:34)
[2022-03-01 12:03] LABS: Glucose,Whole Blood 212 mg/dL (70-110)
[2022-03-01] MEDS: INSULIN ASPART (NovoLOG) 100 UNIT/ML VIAL SQ SCH ×3 (12:20→20:51)
[2022-03-01] MEDS ORDERED: PANTOPRAZOLE 40 MG TABLET PO STA (12:58)
[2022-03-01 17:23] LABS: Glucose,Whole Blood 97 mg/dL (70-110)
[2022-03-01 20:46] LABS: Glucose,Whole Blood 193 mg/dL (70-110)
[2022-03-01] MEDS: ATORVASTATIN 10 MG TAB PO SCH (20:50)
[2022-03-01] MEDS: ISOSORBIDE MONONITRATE ER 30 MG TAB.ER.24H PO SCH (20:51)
[2022-03-01] MEDS: ALPRAZolam 0.25 MG TAB PO PRN (23:15)
[2022-03-02] MEDS: SODIUM CHLORIDE 0.9% 1,000 ML IV SCH (04:50)
[2022-03-02] MEDS: LEVOTHYROXINE 75 MCG TAB PO SCH (07:23)
[2022-03-02] MEDS ORDERED: PANTOPRAZOLE 40 MG TABLET PO SCH (07:30)
[2022-03-02 07:32] LABS: Glucose,Whole Blood 182 mg/dL (70-110)
--- NOTE | 2022-03-02 08:48 | P.PN ---
Subjective Known coronary artery disease status post multivessel angioplasty 6 sinus syndrome status post permanent pacemaker uncontrolled hypertension came to hospital with chest pain. She was evaluated by my associate Dr. Lorenzana yesterday. Her chest discomfort was thought to be atypical and noncardiac. She has had issues with uncontrolled hypertension. She was started on minoxidil yesterday which patient refuses to take as it causes stomach upset. She is currently on clonidine on a when necessary basis. I'm going to put her on clonidine 0.2 mg twice a day. Hopefully this will better control of blood pressure and she can be discharged home and outpatient follow-up arranged with her own junior administrative assistant On exam: Comfortable at rest blood pressure is elevated at 185/76 respirators 18 O2 sat is 93% on room air there is a jugular venous distention chest exam reveals diminished air entry at the bases heart exam reveals first and second heart so unds systolic murmur at the apex abdomen is soft exam extremities did not reveal any edema Her cardiac enzymes were negative Assessment and plan: Atypical chest pain Uncontrolled hypertension Known CAD status post prior angioplasty 6 sinus syndrome status post permanent pacemaker I will add Catapres 0.2 mg twice a day Objective - Vital Signs Vital signs: Vital Signs Temp 98.3 F 03/02/22 07:30 Pulse 60 03/02/22 07:30 Resp 20 03/02/22 07:30 BP 185/76 03/02/22 07:30 Pulse Ox 93 L 03/02/22 07:30 FiO2 Intake & Output 03/01/22 03/02/22 03/02/22 18:59 06:59 18:59 Intake Total 420 Balance 420 Weight 83.461 kg Intake: Oral 420 Other: Voiding Method Toilet Toilet # Voids 4 2 # Bowel Movements 3 - Labs CBC & Chem 7: 02/28/22 23:38 02/28/22 23:38 Labs: Abnormal Lab Results - Last 24 Hours (Table) 03/01/22 03/01/22 03/02/22 Range/Units 12:02 20:44 07:31 POC Glucose (mg/dL) 212 H 193 H 182 H (70-110) mg/dL
[2022-03-02] MEDS ORDERED: FUROSEMIDE 20 MG TAB PO SCH (09:00)
[2022-03-02] MEDS ORDERED: FAMOTIDINE 20 MG TAB PO SCH (09:00)
[2022-03-02] MEDS ORDERED: ASPIRIN 325 MG TAB PO SCH (09:00)
[2022-03-02] MEDS: INSULIN ASPART (NovoLOG) 100 UNIT/ML VIAL SQ SCH ×4 (10:19→22:52)
[2022-03-02] MEDS: SPIRONOLACTONE 25 MG TAB PO SCH (10:19)
[2022-03-02] MEDS: carvediloL 12.5 MG TAB PO SCH ×2 (10:20→18:26)
[2022-03-02] MEDS: hydrALAZINE HCL 50 MG TAB PO SCH ×3 (10:21→21:07)
[2022-03-02] MEDS: APIXABAN 5 MG TAB PO SCH ×2 (10:21→21:06)
[2022-03-02] MEDS: ISOSORBIDE MONONITRATE ER 60 MG TAB.ER.24H PO SCH (10:21)
[2022-03-02] MEDS: cloNIDine HCL 0.2 MG TAB PO SCH ×2 (10:22→22:38)
[2022-03-02] MEDS: minoxidiL 2.5 MG TAB PO SCH (10:22)
[2022-03-02 11:55] LABS: Chol/HDL Ratio 2.72 Ratio; LDL Cholesterol,Calculated 59.9 mg/dL (0.0-131.0)
[2022-03-02 12:43] LABS: Glucose,Whole Blood 187 mg/dL (70-110)
[2022-03-02] MEDS: ASPIRIN 81 MG PO SCH (12:59)
--- NOTE | 2022-03-02 14:02 | P.PN ---
Subjective Progress Note Date: 03/02/22 HISTORY OF PRESENT ILLNESS This is an 89-year-old female patient of Dr. Locke with past medical history of CAD post angina stress test and heart catheter with stent placement in the past. History of arrhythmia post pacemaker, history of recurrent and urgent hypertension on multi-medication. Multi-admission to the hospital with noncontrolled hypertension require multi-medication and has been seen by nephrology and cardiology. Baseline patient seen cardiology at [facility] Dr. Simental last seen couple months ago. Patient complains of midsternal intermittent chest pain that started yesterday and then from 7 PM to 9 PM it went away but returned with increasing ferocity. She states that she took "a bunch" of nitroglycerin at home. She was unable to check her blood pressure at home is a battery was on her blood pressure machine. Renal artery ultrasound done on previous admission revealed no evidence of hemodynamically significant renal artery stenosis. Discussed cardiology situation with the patient and she plans to follow-up with Dr. Simental one more time and then most likely transition to Dr. Lorenzana locally. Patient was found to be afebrile, heart rate 67, blood pressure 165/97, pulse ox 94% on room air. Blood pressure this morning is 203/113 but patient has not received any of her medications. EKG is a ventricularly paced rhythm. WBC 12.1, hemoglobin 14.2, platelet count 214. Sodium 136 otherwise electrolytes are normal. BUN 34 creatinine 0.69. Blood sugar 191. Magnesium 1.9. AST 124, ALT 93, alkaline phosphatase 101, bilirubin 1.1. Troponin negative on 3 draws. Albumin 3.8. Chest x-ray reveals borderline cardiomegaly. No heart failure. No adverse change. Patient has been placed on the observation unit, patient seen by cardiology and metoprolol was changed to Coreg, minoxidil 2.5 mg daily added, Aldactone inc reased to 50 mg daily. We are changing clonidine to 0.1 mg 3 times daily with parameters and on as needed basis. Plan is to monitor patient overnight and most likely discharge home tomorrow. 12/17/2021 Echocardiogram reveals EF of 55-60%, trace mitral regurgitation. 03/02, patient was seen by cardiology, they have started her on Catapres, 0.2 mg twice a day, for systolic blood pressure of 185, patient is not having any chest pain, however she does have some sinus congestion, that she wants Benadryl 4, and she has some chills. We'll going to obtain urinalysis, and start Nasacort, she has got clear rhinorrhea, no antibiotic needed at this time. REVIEW OF SYSTEMS CONSTITUTIONAL: Well-developed no acute respiratory distress. denies fever or chills EYES: No icterus sclerae, no conjunctivitis. EARS, NOSE, MOUTH, THROAT, and FACE: No sore throat, lymphadenopathy, carotid bruits or deformity. numbness to the right side of her face. RESPIRATORY: Reports SOB no cough or wheezes. CARDIOVASCULAR: Reports chest pain-resolved, no palpitations, no PND, no Orthopnea, no angina. GASTROINTESTINAL: No Abd pain, Nausea or vomiting, no Diarrhea no constipation, No GI Bleed, no distention or masses. GENITOURINARY: Negative for Hematuria or UTI, no kidney stones. INTEGUMENT/BREAST: Negative for any muscular injury with mild osteoarthritis.. HEMATOLOGIC/LYMPHATIC: Negative for bleed or purpura. MUSCULOSKELTAL: Negative for Myalgia or arthralgia. NEURLOGICAL: No LOC, Sz or syncope, no blurred vision, no dizziness or abnormality, no weakness BEHAVIORAL/PSYCH: Negative. ENDOCRINE: Negative. PHYSICAL EXAMINATION General Appearance: Alert, cooperative, no distress, appears stated age of 89 years of age, resting on the edge of the bed and appears to be comfortable . Neck HEENT: Supple, no lymphadenopathy, no thyroid enlargement, no carotid brui ts. numbness to the right side of her face and lip with no deficit. Lungs: Clear to auscultation without crackles or wheezes no rhonchi, no deformity. Chest Wall: Chest wall normal expansion with deep inspiration no tenderness and no deformity was found on exam, no costochondral pain or discomfort. Heart: Regular rate and rhythm, S1, S2 normal, no murmur, rub or gallop. Back: Symmetric, no curvature, ROM normal, no CVA tenderness. Abdomen: Soft, non-tender, bowel sounds active all four quadrants, no masses, no organomegaly. Extremities: Extremities normal, atraumatic, no cyanosis or edema. Pulses: 2+ and symmetric. Skin: Skin color, texture, tugor normal, no rashes or lesions. Neurologic: Alert oriented x3 cranial nerves II through XII intact, no motor deficit, no abnormal balance or gait. ASSESSMENT AND PLAN Chest pain with negative troponin. Chest pain most likely due to accelerated hypertension. Cardiology consult appreciated, echocardiogram, continue aspirin 81 mg daily, Lipitor 10 mg daily, Lopressor changed to Coreg 25 mg twice daily, continue Imdur 60 mg in the morning and 90 mg in the evening, increase Aldactone to 50 mg daily, minoxidil 2.5 mg daily added, continue hydralazine 100 mg 3 times daily, Lasix 20 mg every 48 hours, change Catapres to 0.1 mg 3 times daily as needed for systolic blood pressure greater than 160 or diastolic blood pre ssure above 90. Accelerated hypertension. Continue as above, multiple medication changes made. Plan to monitor patient overnight and possible discharge tomorrow. Hypertension, hypertensive cardiovascular disease. Continue as above History of coronary artery disease. Continue aspirin 81 mg daily, Lipitor 10 mg at bedtime, Coreg 25 mg twice daily, Imdur 60 mg daily and 90 mg at bedtime. Permanent atrial fibrillation. Continue eliquis 5 mg twice daily and Coreg. Sick sinus syndrome status post pacemaker implantation. Chronic diastolic heart failure. Continue BB, Lasix, Aldactone. Diabetes mellitus type 2. Continue glipizide 2.5 mg with breakfast and NovoLog scale before meals and at bedtime. Hypothyroidism. Continue levothyroxine 75 g daily. Chronic diabetic neuropathy. Gastroesophageal reflux disease and GI prophylaxis. Continue Pepcid 20 mg daily as needed. DVT prophylaxis. Eliquis. Patient will be admitted to the hospital for a minimum of 2 night stay. DISCHARGE PLAN Return home Laboratory Results - Last 24 Hours 02/28/22 03/01/22 03/01/22 23:38 17:19 20:44 POC Glucose (mg/dL) 97 193 H POC Glu Accounting Professor ID Radha Jeffries Gregory Triglycerides 143.00 Cholesterol 140.00 LDL Cholesterol, Calc 59.9 VLDL Cholesterol, Calc 28.60 HDL Cholesterol 51.50 Cholesterol/HDL Ratio 2.72 03/02/22 03/02/22 07:31 12:42 POC Glucose (mg/dL) 182 H 187 H POC Glu Accounting Professor ID Sangita Vinson Jasmine Triglycerides Cholesterol LDL Cholesterol, Calc VLDL Cholesterol, Calc HDL Cholesterol Cholesterol/HDL Ratio Current Medications Alprazolam (Alprazolam 0.25 Mg Tab) 0.25 mg PO HS PRN PRN Reason: Insomnia Last Admin: 03/01/22 23:15 Dose: 0.25 mg Apixaban (Apixaban 5 Mg Tab) 5 mg PO BID [facility]; Protocol Last Admin: 03/02/22 10:21 Dose: 5 mg Aspirin (Aspirin 81 Mg) 81 mg PO DAILY@1200 DULCE Last Admin: 03/02/22 12:59 Dose: 81 mg Atorvastatin Calcium (Atorvastatin 10 Mg Tab) 10 mg PO HS [facility] Last Admin: 03/01/22 20:50 Dose: 10 mg Carvedilol (Carvedilol 12.5 Mg Tab) 25 mg PO BID-W/MEALS [facility] Last Admin: 03/02/22 10:20 Dose: 25 mg Clonidine (Clonidine Hcl 0.2 Mg Tab) 0.2 mg PO BID [facility] Last Admin: 03/02/22 10:22 Dose: 0.2 mg Docusate Sodium (Docusate 100 Mg Cap) 100 mg PO DAILY PRN PRN Reason: Constipation Famotidine (Famotidine 20 Mg Tab) 20 mg PO BID [facility] Fluticasone Propionate (Fluticasone 50mcg/Letts Nasal 16gm) 1 spray EA NOSTRIL BID [facility] Furosemide (Furosemide 20 Mg Tab) 20 mg PO Q48H [facility] Last Admin: 03/02/22 10:21 Dose: 20 mg Glipizide (Glipizide 2.5 Mg Tab) 2.5 mg PO DAILY [facility] Last Admin: 03/02/22 10:21 Dose: 2.5 mg Hydralazine HCl (Hydralazine Hcl 50 Mg Tab) 100 mg PO TID [facility] Last Admin: 03/02/22 10:21 Dose: 100 mg Sodium Chloride (Saline 0.9%) 1,000 mls @ 20 mls/hr IV .Q24H [facility] Last Admin: 03/02/22 04:50 Dose: Not Given Insulin Aspart (Insulin Aspart (Novolog) 100 Unit/Ml Vial) 0 unit SQ ACHS [facility]; Protocol Last Admin: 03/02/22 12:59 Dose: 100 unit Isosorbide Mononitrate (Isosorbide Mononitrate Er 60 Mg Tab.Er.24h) 60 mg PO DAILY [facility] Last Admin: 03/02/22 10:21 Dose: 60 mg Isosorbide Mononitrate (Isosorbide Mononitrate Er 30 Mg Tab.Er.24h) 90 mg PO [facility] Last Admin: 03/01/22 20:51 Dose: 90 mg Levothyroxine Sodium (Levothyroxine 75 Mcg Tab) 75 mcg PO DAILY@0630 [facility] Last Admin: 03/02/22 07:23 Dose: 75 mcg Melatonin (Melatonin 3 Mg Tablet) 6 mg PO [facility] Minoxidil (Minoxidil 2.5 Mg Tab) 2.5 mg PO DAILY [facility] Last Admin: 03/02/22 10:22 Dose: Not Given Nitroglycerin (Nitroglycerin Sl Tabs 0.4 Mg Tab) 0.4 mg SUBLINGUAL Q5M PRN PRN Reason: Chest Pain Last Admin: 03/01/22 23:15 Dose: 0.4 mg Pantoprazole Sodium (Pantoprazole Sodium 40 Mg Granule Pkt) 20 mg PO AC-BRKFST [facility] Spironolactone (Spironolactone 25 Mg Tab) 50 mg PO DAILY [facility] Last Admin: 03/02/22 10:19 Dose: Not Given Vital Signs - 24 hr 03/01/22 03/01/22 03/01/22 14:49 15:25 20:00 Temperature 98.3 F 98.3 F Pulse Rate [ 65 65 Left Pulse Oximetery] Respiratory 16 16 17 Rate Blood Pressure 145/72 [Left Arm] Blood Pressure 123/72 [Right Arm] O2 Sat by Pulse 96 95 Oximetry 03/02/22 03/02/22 03/02/22 01:27 02:18 07:30 Temperature 98.2 F 98.3 F Pulse Rate [ 65 60 Left Pulse Oximetery] Respiratory 17 17 20 Rate Blood Pressure 136/64 185/76 [Left Arm] Blood Pressure [Right Arm] O2 Sat by Pulse 96 93 L Oximetry 03/02/22 08:00 Temperature Pulse Rate [ Left Pulse Oximetery] Respiratory 20 Rate Blood Pressure [Left Arm] Blood Pressure [Right Arm] O2 Sat by Pulse Oximetry Objective - Vital Signs Vital signs: Vital Signs Temp 98.3 F 03/02/22 07:30 Pulse 60 03/02/22 07:30 Resp 20 03/02/22 08:00 BP 185/76 03/02/22 07:30 Pulse Ox 93 L 03/02/22 07:30 FiO2 Intake & Output 03/01/22 03/02/22 03/02/22 18:59 06:59 18:59 Intake Total 420 180 Balance 420 180 Weight 83.461 kg Intake: Oral 420 180 Other: Voiding Method Toilet Toilet Toilet # Voids 4 2 # Bowel Movements 3 - Labs CBC & Chem 7: 02/28/22 23:38 02/28/22 23:38 Labs: Abnormal Lab Results - Last 24 Hours (Table) 03/01/22 03/02/22 03/02/22 Range/Units 20:44 07:31 12:42 POC Glucose (mg/dL) 193 H 182 H 187 H (70-110) mg/dL
[2022-03-02 14:25] VITALS: RESP 18
[2022-03-02 15:05] LABS: Appearance,Urine Clear (Clear); Bilirubin,Urine Negative (Negative); Blood,Urine Negative (Negative); Color,Urine Light Yellow; Glucose,Urine (UA) Negative (Negative); Ketones,Urine Negative (Negative); Leukocyte Esterase,Urine Negative (Negative); Nitrite,Urine Negative (Negative); Protein,Urine Negative (Negative); Specific Gravity,Urine 1.005 (1.001-1.035); Urobilinogen,Urine <2.0 mg/dL (<2.0)
[2022-03-02 17:22] LABS: Glucose,Whole Blood 166 mg/dL (70-110)
[2022-03-02] MEDS ORDERED: MELATONIN 3 MG TABLET PO SCH (21:00)
[2022-03-02] MEDS: ATORVASTATIN 10 MG TAB PO SCH (21:06)
[2022-03-02] MEDS: FLUTICASONE 50MCG/SPRAY NASAL 16GM EA NOSTRIL SCH (21:07)
[2022-03-02] MEDS: FAMOTIDINE 20 MG TAB PO SCH (21:07)
[2022-03-02] MEDS: ISOSORBIDE MONONITRATE ER 30 MG TAB.ER.24H PO SCH (21:07)
[2022-03-02 21:34] LABS: Glucose,Whole Blood 154 mg/dL (70-110)
[2022-03-02] MEDS: ALPRAZolam 0.25 MG TAB PO PRN (23:06)
[2022-03-03] MEDS: LEVOTHYROXINE 75 MCG TAB PO SCH (06:06)
[2022-03-03] MEDS: SODIUM CHLORIDE 0.9% 1,000 ML IV SCH (06:07)
[2022-03-03] MEDS ORDERED: PANTOPRAZOLE 40 MG TABLET PO SCH (07:30)
[2022-03-03] MEDS ORDERED: PANTOPRAZOLE SODIUM 40 MG GRANULE PKT PO SCH (07:30)
[2022-03-03 07:51] LABS: Glucose,Whole Blood 182 mg/dL (70-110)
[2022-03-03] MEDS: INSULIN ASPART (NovoLOG) 100 UNIT/ML VIAL SQ SCH ×2 (08:51→13:00)
[2022-03-03] MEDS: SPIRONOLACTONE 25 MG TAB PO SCH (08:52)
[2022-03-03] MEDS: APIXABAN 5 MG TAB PO SCH (08:52)
[2022-03-03] MEDS: cloNIDine HCL 0.2 MG TAB PO SCH (08:53)
[2022-03-03] MEDS: ISOSORBIDE MONONITRATE ER 60 MG TAB.ER.24H PO SCH (08:53)
[2022-03-03] MEDS: FAMOTIDINE 20 MG TAB PO SCH (08:53)
[2022-03-03] MEDS: carvediloL 12.5 MG TAB PO SCH (08:53)
[2022-03-03] MEDS: hydrALAZINE HCL 50 MG TAB PO SCH (08:53)
[2022-03-03] MEDS: minoxidiL 2.5 MG TAB PO SCH (08:54)
[2022-03-03] MEDS: FLUTICASONE 50MCG/SPRAY NASAL 16GM EA NOSTRIL SCH (08:57)
[2022-03-03 11:17] LABS: Glucose,Whole Blood 205 mg/dL (70-110)
[2022-03-03 12:00] VITALS: BP 151/81; PULSE 63; TEMP 97.9
--- NOTE | 2022-03-03 12:37 | PN ---
PROGRESS NOTE Liliana is an 89-year-old lady that we are following for severe uncontrolled hypertension. She is free of significant symptoms. I have reviewed her blood pressures. This morning her blood pressure is high, but overall the blood pressures have been better controlled with the medications that I adjusted. On exam, comfortable at rest. Blood pressure is 168/95, respiratory rate is 18. Chest exam reveals good air entry bilaterally. Heart exam reveals first and second heart sounds and a systolic murmur at the left lower sternal border. Abdomen is soft. Examination of the extremities did not reveal any edema. Peripheral pulses are felt. LABS: Labs show a hemoglobin of 14.2, platelet count is 214. ASSESSMENT AND PLAN: Severe uncontrolled hypertension. PLAN: I will increase the dose of clonidine to 0.2 mg 3 times a day. The patient could not tolerate minoxidil and will not take minoxidil. She is stable from cardiac standpoint for discharge. Follow up with Cardiology in a week's time. MMKIRSTIE / FRANCESCAN: [id number] /
[2022-03-03] MEDS: ASPIRIN 81 MG PO SCH (13:00)
--- NOTE | 2022-03-03 15:35 | P.DS ---
Providers Date of admission: 03/01/22 10:22 Expected date of discharge: 03/03/22 Attending physician: Karlo Locke Consults: 03/01/22 05:46 Consult Physician Routine Consulting Provider: Piter Huynh Consult Reason/Comments: chest pain Do you want consulting provider notified?: Yes Primary care physician: [facility] Course: HISTORY OF PRESENT ILLNESS This is an 89-year-old female patient of Dr. Locke with past medical history of CAD post angina stress test and heart catheter with stent placement in the past. History of arrhythmia post pacemaker, history of recurrent and urgent hypertension on multi-medication. Multi-admission to the hospital with noncontrolled hypertension require multi-medication and has been seen by nephrology and cardiology. Baseline patient seen cardiology at [facility] Dr. Simental last seen couple months ago. Patient complains of midsternal intermittent chest pain that started yesterday and then from 7 PM to 9 PM it went away but returned with increasing ferocity. She states that she took "a bunch" of nitroglycerin at home. She was unable to check her blood pressure at home is a battery was on her blood pressure machine. Renal artery ultrasound done on previous admission revealed no evidence of hemodynamically significant renal artery stenosis. Discussed cardiology situation with the patient and she plans to follow-up with Dr. Simental one more time and then most likely transition to Dr. Lorenzana locally. Patient was found to be afebrile, heart rate 67, blood pressure 165/97, pulse ox 94% on room air. Blood pressure this morning is 203/113 but patient has not received any of her medications. EKG is a ventricularly paced rhythm. WBC 12.1, hemoglobin 14.2, platelet count 214. Sodium 136 otherwise electrolytes are normal. BUN 34 creatinine 0.69. Blood sugar 191. Magnesium 1.9. AST 124, ALT 93, alkaline phosphatase 101, bilirubin 1.1. Troponin negative on 3 draws. Albumin 3.8. Chest x-ray reveals borderline cardiomegaly. No heart failure. No adverse change. Patient has been placed on the observation unit, patient seen by cardiology and metoprolol was changed to Coreg, minoxidil 2.5 mg daily added, Aldactone increased to 50 mg daily. We are changing clonidine to 0.1 mg 3 times daily with parameters and on as needed basis. Plan is to monitor patient overnight and most likely discharge home tomorrow. 12/17/2021 Echocardiogram reveals EF of 55-60%, trace mitral regurgitation. 03/02, patient was seen by cardiology, they have started her on Catapres, 0.2 mg twice a day, for systolic blood pressure of 185, patient is not having any chest pain, however she does have some sinus congestion, that she wants Benadryl 4, and she has some chills. We'll going to obtain urinalysis, and start Nasacort, she has got clear rhinorrhea, no antibiotic needed at this time. 03/03, patient's much better, no chest pain no shortness of breath, no lightheadedness no dizziness, no dysphagia no aspiration O2 sats are okay room air blood pressure slightly on the higher side 140s to 150s, Catapres is increased to 0.2 mg 3 times a day, cleared by cardiology for discharge , patient to follow-up with Dr. Locke, one week, and Dr. Lorenzana with labs anticipated for her routine visit with Dr. Locke Final diagnosis 1 Chest pain ruled out ACS most likely due to accelerated hypertension. Cardiology consult appreciated, echocardiogram, continue aspirin 81 mg daily, Lipitor 10 mg daily, Lopressor changed to Coreg 25 mg twice daily, continue Imdur 60 mg in the morning and 90 mg in the evening, increase Aldactone to 50 mg daily, minoxidil 2.5 mg daily added, continue hydralazine 100 mg 3 times daily, Lasix 20 mg every 48 hours, change Catapres to 0.2 mg 3 times daily 2 Accelerated hypertension. Continue as above, multiple medication changes made. 3 Hypertension, hypertensive cardiovascular disease. Continue as above 4 History of coronary artery disease. Continue aspirin 81 mg daily, Lipitor 10 mg at bedtime, Coreg 25 mg twice daily, Imdur 60 mg daily and 90 mg at bedtime. 5 Permanent atrial fibrillation. Continue eliquis 5 mg twice daily and Coreg. 6 Sick sinus syndrome status post pacemaker implantation. 7 Chronic diastolic heart failure. Continue BB, Lasix, Aldactone. 8 Diabetes mellitus type 2. Continue glipizide 2.5 mg with breakfast and NovoLog scale before meals and at bedtime. 9 Hypothyroidism. Continue levothyroxine 75 g daily. 10 Chronic diabetic neuropathy. Gastroesophageal reflux disease and GI prophylaxis. Continue Pepcid 20 mg daily as needed. DVT prophylaxis. Eliquis. Patient will be admitted to the hospital for a minimum of 2 night stay. DISCHARGE PLAN Return home Plan - Discharge Summary Discharge Rx Participant: No New Discharge Prescriptions: New Spironolactone [Aldactone] 50 mg PO DAILY #30 tab Fluticasone Nasal Converse [Flonase Nasal Converse] 1 spray EA NOSTRIL BID ml minoxidiL [Loniten] 2.5 mg PO DAILY #30 tab cloNIDine HCL [Catapres] 0.2 mg PO TID #90 tab carvediloL [Coreg*] 25 mg PO BID-W/MEALS #60 tab Melatonin 6 mg PO HS #0 tab Continue glipiZIDE XL [Glucotrol XL] 2.5 mg PO DAILY Apixaban [Eliquis] 5 mg PO BID Levothyroxine Sodium [Synthroid] 75 mcg PO DAILY Estradiol 0.05MG/24Hr Biwkptch [Vivelle-Dot 0.05 MG] 1 patch TRANSDERM SUWE Isosorbide Mononitrate ER [Imdur] 60 mg PO DAILY tab.er.24h Isosorbide Mononitrate ER [Imdur] 90 mg PO HS hydrALAZINE HCL [Apresoline] 100 mg PO TID ALPRAZolam [Xanax] 0.25 mg PO HS PRN PRN Reason: Insomnia Furosemide [Lasix] 20 mg PO Q48H Nitroglycerin Sl Tabs [Nitrostat] 0.4 mg SL Q5M PRN PRN Reason: Chest Pain Cholecalciferol (Vitamin D3) [Vitamin D3 (3000 Iu)] 75 mcg PO DAILY@1200 Cyanocobalamin (Vitamin B-12) [Vitamin B-12] 500 mcg PO DAILY@1400 Ascorbic Acid [Vitamin C] 1,000 mg PO DAILY@1400 Docusate Sodium [Dok] 100 mg PO DAILY PRN PRN Reason: Constipation Aspirin 81 mg PO DAILY@1200 Simvastatin [Zocor] 20 mg PO HS Discontinued Spironolactone [Aldactone] 25 mg PO Q48H Metoprolol Tartrate [Lopressor] 100 mg PO TID cloNIDine HCL [Catapres] 0.1 mg PO HS PRN PRN Reason: Blood Pressure - High cloNIDine HCL [Catapres] 0.3 mg PO TID PRN PRN Reason: Blood Pressure - High Discharge Medication List Apixaban [Eliquis] 5 mg PO BID 04/19/17 [History] glipiZIDE XL [Glucotrol XL] 2.5 mg PO DAILY 04/19/17 [History] Levothyroxine Sodium [Synthroid] 75 mcg PO DAILY 05/26/17 [History] Estradiol 0.05MG/24Hr Biwkptch [Vivelle-Dot 0.05 MG] 1 patch TRANSDERM SUWE 01/13/19 [History] Isosorbide Mononitrate ER [Imdur] 60 mg PO DAILY tab.er.24h 01/13/19 [Rx] Isosorbide Mononitrate ER [Imdur] 90 mg PO HS 05/09/19 [History] ALPRAZolam [Xanax] 0.25 mg PO HS PRN 09/17/19 [History] hydrALAZINE HCL [Apresoline] 100 mg PO TID 09/17/19 [History] Furosemide [Lasix] 20 mg PO Q48H 07/05/20 [History] Nitroglycerin Sl Tabs [Nitrostat] 0.4 mg SL Q5M PRN 08/02/20 [History] Cholecalciferol (Vitamin D3) [Vitamin D3 (3000 Iu)] 75 mcg PO DAILY@1200 01/01/21 [History] Cyanocobalamin (Vitamin B-12) [Vitamin B-12] 500 mcg PO DAILY@1400 07/14/21 [Hi story] Ascorbic Acid [Vitamin C] 1,000 mg PO DAILY@1400 12/01/21 [History] Aspirin 81 mg PO DAILY@1200 12/01/21 [History] Docusate Sodium [Dok] 100 mg PO DAILY PRN 12/01/21 [History] Simvastatin [Zocor] 20 mg PO HS 03/01/22 [History] Fluticasone Nasal Converse [Flonase Nasal Converse] 1 spray EA NOSTRIL BID ml 03/03/22 [Rx] Melatonin 6 mg PO HS #0 tab 03/03/22 [Rx] Spironolactone [Aldactone] 50 mg PO DAILY #30 tab 03/03/22 [Rx] carvediloL [Coreg*] 25 mg PO BID-W/MEALS #60 tab 03/03/22 [Rx] cloNIDine HCL [Catapres] 0.2 mg PO TID #90 tab 03/03/22 [Rx] minoxidiL [Loniten] 2.5 mg PO DAILY #30 tab 03/03/22 [Rx] Follow up Appointment(s)/Referral(s): Sebastian Lorenzana DO [STAFF PHYSICIAN] - 1 Week (Patient to make own follow-up appt. Office closed at time of discharge. ) Karlo Locke MD [Primary Care Provider] - 1 Week (Patient to make own follow-up appt. Office closed at time of discharge. ) Jolly Simental MD [REFERRING] - 1 Week (Patient to make own follow-up appt. Offi ce closed at time of discharge. ) Patient Instructions/Handouts: Spironolactone (By mouth), Clonidine (By mouth), Minoxidil (By mouth), Carvedilol (By mouth), Chest Pain (DC), Hypertension (DC) Activity/Diet/Wound Care/Special Instructions: Follow up with Dr. Lorenzana, assembly member, in near future. Discharge Disposition: HOME SELF-CARE
[2022-03-03] MEDS ORDERED: cloNIDine HCL 0.2 MG TAB PO SCH (16:00)
== END 2022-03-03 15:30 | disposition home or self-care (01) | DRG 292 ==
LOC: EC 23:00 → 6NMEDSUR 03-01 05:46 → OBSVTOIN 03-01 10:22 → 5NMEDONC 03-02 22:43
PROVIDERS: ADMIT Internal Medicine Geriatric Medicine; ATTEND Internal Medicine Geriatric Medicine
DX: I11.0 Hypertensive heart disease with heart failure (principal); I48.21 Permanent atrial fibrillation; E03.9 Hypothyroidism, unspecified; I34.0 Nonrheumatic mitral (valve) insufficiency; R01.1 Cardiac murmur, unspecified; R07.89 Other chest pain; E78.5 Hyperlipidemia, unspecified; E11.42 Type 2 diabetes mellitus with diabetic polyneuropathy; F41.9 Anxiety disorder, unspecified; G25.81 Restless legs syndrome; I25.10 Atherosclerotic heart disease of native coronary artery without angina pectoris; I49.5 Sick sinus syndrome; I50.32 Chronic diastolic (congestive) heart failure; Z79.01 Long term (current) use of anticoagulants; Z79.82 Long term (current) use of aspirin; Z79.84 Long term (current) use of oral hypoglycemic drugs; Z79.890 Hormone replacement therapy; Z79.899 Other long term (current) drug therapy; Z80.0 Family history of malignant neoplasm of digestive organs; Z80.8 Family history of malignant neoplasm of other organs or systems; Z82.3 Family history of stroke; Z82.49 Family history of ischemic heart disease and other diseases of the circulatory system; Z85.828 Personal history of other malignant neoplasm of skin; Z90.710 Acquired absence of both cervix and uterus; Z95.0 Presence of cardiac pacemaker; Z95.5 Presence of coronary angioplasty implant and graft; Z88.8 Allergy status to other drugs, medicaments and biological substances; Z90.49 Acquired absence of other specified parts of digestive tract; Z88.1 Allergy status to other antibiotic agents
CPT/HCPCS: 36415; 71046; 80053; 80061; 81003; 83735; 84484; 85025; 85610; 85730; 93005; 99285